=== PATIENT | male | born 1950 | race Caucasian/White ===

== ENCOUNTER → 2017-03-29 14:22 | Outpatient (CLI) | payer OTHER, SELFPAY | PROVIDERS: Family Provider Family Medicine; PCP Family Medicine; Visit Provider Internal Medicine Cardiovascular Disease | DX: Z53.9 Procedure and treatment not carried out, unspecified reason (principal) ==

== ENCOUNTER 2017-04-21 13:00 | Outpatient (RCR) | payer OTHER, SELFPAY ==
--- NOTE | 2017-03-29 12:52 | PCM.CR.ITP ---
Exercise - Initial Assessment - Visit Date of Eval: 03/29/17 - Stages of Change Stages of Change:: Contemplate - Exercise Prescription Mode:: Treadmill, Biodyne, Airdyne, NuStep, Arm Ergometer Angina with exercise?: No - Hypertension Do any of the following apply?: Yes Resting Blood Pressure:: 130/60 - Intervention Home Exercise/Activity Goal:: Sitting Time <3 hrs/day - Education Goals:: Warm-up, RPE VIPIN Scale, S/S, Safe Exercise, Self-Monitoring - Exercise Program Goals Exercise Program Goals: Aerobic Activity >30 min, B/P <140/90 Nutrition - Initial Assessment - Program Goals Nutrition Program Goals: LDL <70. Total Cholesterol <200. HDL >45. Triglycerides <150. HgbA1C <7%. BMI <25 - Visit Date of Assessment:: 03/29/17 - Stages of Change Stages of Change:: Contemplate - Diabetes Diabetes:: Yes - Weight Management Height: 1.85 m Weight:: 108.862 kg Total Score:: 3 - Intervention Referral to dietitian:: Yes Referral to Diabetic Clinic:: No Will attend diet classes:: Yes - Education Gave educational materials for:: Signs & symptoms of hypoglycemia, Signs & symptoms of hyperglycemia, Relate diabetes to coronary artery disease, Healthy eating Tobacco - Initial Assessment - Program Goals Tobacco Program Goals: Complete smoking cessation. Attend education classes. Improve Knowledge Test score - Stage of Change Stages of Change:: Contemplate - Learning Barriers Learning Barriers: Vision Total Score:: 9 - Family Support Do you have family support?: Yes - Tobacco Use Tobacco Use: Non-smoker How long ago did you quit using tobacco products?: Greater than or equal to 6 months ago Do you use smokeless tobacco?: No - Intervention Smoking Cessation Referral:: No Individual Education/Counseling:: No Education Schedule Given:: Yes - Education Gave educational material for:: Tobacco triggers, Coronary artery disease, Risk factors, Sexuality, Medical compliance, Cardiac A&P, Angina signs & symptoms Psychosocial - Initial Assess - Target Goals Target Goals: Assess presence or absence of depression. Using a valid screening tool, maximizes coping skills. Positive support system - Stages of Change Stages of Change:: Contemplate - Psychosocial Test Tool Used:: HANDS Depression Questionnaire Total Mood Screening Score:: 1 Self-Efficacy Score:: 7 - Intervention PS - Interventions: Yes Attend Stress Management Classes, Yes Uses Stress Management Skills, No Referral to Mental Health, No Referral to [facility] Case Management, No Referral to Physician - Education Gave educational materials for:: Coping techniques, Signs & symptoms of depression, Stress management, Relaxation techniques - Assistive Devices Assistive Devices:: None Fall Risk Assessed:: Yes Patient Health Questionnaire Initial Assessment 1. Little interest or pleasure in doing things: Not at all 2. Feeling down, depressed, or hopeless: Not at all 3. Trouble falling or staying asleep, or sleeping too much: Not at all 4. Feeling tired or having little energy: Several days 5. Poor appetite or overeating: Not at all 6. Feeling bad about yourself -- or that you are a failure or have let yourself or your family down: Not at all 7. Trouble concentrating on things, such as reading the newspaper or watching television: Not at all 8. Moving or speaking so slowly that other people could have noticed. Or the opposite - being so fidgety or restless that you have been moving around a lot more than usual: Not at all 9. Thoughts that you would be better off , or of hurting yourself in some way: Not at all How difficult have these problems made it for you to do your work, take care of things at home, or get along with other people?: Not difficult at all Total Score: 1 Knowledge Test - Check your knowledge Initial The #1 cause of in the [place] each year is:: Heart disease Which of the following is a common treatment for heart disease?: All of the above The arteries that feed the heart are called:: Coronary arteries HDL cholesterol is known as the good cholesterol.: True What disease increases your risk for heart disease?: Diabetes What food product raises blood cholesterol level the most?: Saturated fat The bad cholesterol in the blood is called:: LDL Hypertension is another word for:: High blood pressure A blood pressure reading of 148/88 is considered normal.: False Exercise will only benefit your health when your heart rate reaches a target level.: True Total Score:: 9 Self-Efficacy Initial Assessment We would like to know how confident you are in doing certain activities. Please select your confidence level for:: Select your confidence level for the following using the scale 1-10 where 1 is not at all confident and 10 is totally confident. Your score is the average of all 6 responses. Fatigue: How confident are you that you can keep the fatigue caused by your disease from interfering with the things you want to do? Select Number: 4 Physical Discomfort or Pain: How confident are you that you can keep the physical discomfort or pain of your disease from interfering with the things you want to do? Select Number: 7 Emotional Distress: How confident are you that you can keep the emotional distress caused by your disease from interfering with the things you want to do? Select Number: 10 Other Symptoms or Health Problems: How confident are you that you can keep other symptoms or health problems from interfering with the things you want to do? Select Number: 8 Different Tasks and Activities: How confident are you that you can do the different tasks and activities needed to manage your health condition so as to reduce your need to see a doctor? Select Number: 9 Medication: How confident are you that you can do things other than just taking medication to reduce how much your illness affects your everyday life? Select Number: 8 Total Score:: 7 Nutrition Survey - Nutrition Survey Instructions Scoring Instructions: Scoring is as follows: Yes = 1 points. No = 0 point. Patient score that is >/=12 is considered to be at potential nutritional risk and could benefit from a referral to a registered dietitian. - Nutrition Survey Initial Have you lost >10 lbs over the past 2 months without trying?: No Are you following a special diet at home for diabetes, low fat, or low salt?: Yes Are you interested in meeting with a dietitian for help understanding your diet?: Yes Do you eat less than 3 meals a day?: No Do you eat fatty meats (rojas, sausage, ribs, etc), fried foods, desserts, large amounts of salad dressings, margarine, butter, or cheese most days?: No Do you have food allergies? [Enter types in comment field]: No Do you eat in restaurants more than 3 times a week?: No Do you season food with salt, seasoning salt, or garlic salt?: No Do you used canned, boxed, frozen meals, or soups, seasoning packets?: Yes Total Score:: 3 Cardiac Rehabilitation Goals - Cardiac Rehab Goals Cardiac Rehabilitation Goals: 1. Maintain the individual as the primary focus of care. 2. To improve the patient's quality of life. 3. Identification of cardiac risk factors and provide cardiac risk factor management. 4. Enhance the psychosocial status of the patient. 5. Reconditioning enough to allow the patient to resume customary activities. 6. Control symptoms of cardiac disease - Scale Scale for measuring improvement of personal goals: Enter appropriate number in Comments. 2 = Unchanged. 3 = Slightly Better. 4 = Moderate Improvement. 5 = Met my Goal Initial Assessment Personal Goals: 30-day Re-assessment: Improve energy level, Get back to work, or to resume activities faster, Improve muscle strength and endurance, Control risk factors (learn risk factor modification)
--- NOTE | 2017-03-29 12:53 | PCM.CR.HP2 ---
CR - History & Physical - General Arrival date:: 03/29/17 Arrival time:: 12:53 Date of Admission: 01/21/17 Referring Physician: Dr. Wali Milton Primary Diagnosis: Z95.1 - History of Present Cardiac Event Onset Date: Enter Onset Date of cardiac illnesses in Comment field below [place]:: Yes CABG:: Yes - Medications Home Medications: Ambulatory Orders Medication Instructions Recorded Glucosamine/Chondroitin A/MSM 1 ea PO BID 01/19/17 [[id number]-TMD Tb] Levothyroxine [Synthroid] 125 mcg PO DAILY 01/19/17 Multivitamin with Iron 1 ea PO DAILY 01/19/17 [Multivitamins with Iron] Turmeric Root Extract [Turmeric] 500 mg PO BID 01/19/17 aspirin 81 mg tablet,delayed 81 mg PO QDAY 03/18/17 release insulin lispro protamine-lispro 20 unit SC BID ml 03/19/17 100 unit/mL (75-25) subcutaneous pen metformin 500 mg tablet 500 mg PO BID 03/19/17 metoprolol tartrate 25 mg tablet 12.5 mg PO BID tab 03/19/17 - Allergies Allergies/Adverse Reactions: Allergies lanolin Adverse Reaction (Unknown, Unverified 03/18/17 10:29) Unknown - Sleep Disorder Evaluation Hx of Sleep Apnea: No Do you snore loudly (louder than talking or can be heard through closed doors)?: No Do you often feel tired/ fatigued/ sleepy during daytime?: No Has anyone observed you stop breathing during sleep?: No History of Hypertension (for STOP score): Yes STOP Results: Negative Advanced Directives - Advanced Directives Power of Insurance Agents Supervisor: Yes Living Will: No Advance Directives Information Provided: Yes Advance Directives on File: Yes DNR Order?:: No Past Medical History - Problems and Co-Morbidities Problems & Co-Morbidities: Dyslipidemia, Diabetes, Obesity, Hypertension, Sedentary Lifestyle - Past Medical Illness Past Medical Illness: Diabetes, Stroke Other Medical Illnesses:: thyroid disorder - Other Other: Vision/Eye Problems - Cardiology Procedures/Interventions Cardiology Procedures/Interventions: Heart Catheterization, Echocardiogram - EF 50-55 per echo in Jan 2017, Other Procedures - CABG - Past Surgical History Surgical History: no surgical history - Family History Summary Family History: Heart Disease: Sibling Review of Systems - Review of Systems Hints: Right click = Denies (Slash). Left click = Reports ([place]) Review of Present Symptoms: Reports: Angina, Appetite - Normal, Sleep - Normal. Denies: Shortness of Breath at Rest, Shortness of Breath with Exertion, PVD, Operative Discomfort, Wound Healing, Dizziness/Lightheadedness, Fatigue, Heart Arrhythmia/Irregularities, Appetite - Special Diet, Sexual Changes Risk Factor Assessment - Chief Complaint Chief Complaint: CP, Non-ST [place] - Pulse Pulse Rate: 55 - 93% SPO2 Pulse Rhythm: Regular - Hypertension How long have you been treated?: 2 month Blood Pressure Sitting - Right Arm: 130/60 - Diabetes Diabetic History: Type II Nutrition Referral for Diabetes: Yes - Obesity Height: 1.85 m Weight:: 108.862 kg Weight in Pounds: 240.0 lbs Body Mass Index (BMI): 31.6 Nutritional Referral for Obesity: No - Physical Inactivity Physical Inactivity: None - Risk Stratification Risk Guidelines: Lowest Risk: Risk Factor for Depression, Moderate Risk: Risk Factor for Smoking, Risk Factor for Dyslipidemia, Risk Factor for Diabetes, Risk Factor for Hypertension, Risk Factor for Sedentary Lifestyle, Highest Risk: Risk Factor for Obesity - For Smoking Smoking Risk Guidelines: Smoking Low Risk: None or quit greater than 6 months ago. Smoking Moderate Risk: Smoker or quit 6 months or less ago. Smoking High Risk: Smoker - For Dyslipidemia Dyslipidemia Risk Guidelines: Low Risk: Moderate Risk: High Risk: 15-25% fat 25.1-29% fat >/= 30% fat. <7% sat fat 7-9% sat fat >9% sat fat. <150 mg chol 150-299 mg chol >/= 300 mg chol. LDL <100 LDL 100-129 LDL >/= 130. Chol/HDL ratio <5.0 Chol/HDL ratio 5.0-6.0 Chol/HDL ratio >6.0. Triglycerides <100 Triglycerides 100-149 Triglycerides >/= 150 - For Diabetes Mellitus Diabetes Risk Guidelines: Diabetes Low Risk: HgA1c <6.5% and/or FBG <120. Diabetes Moderate Risk: HgA1c 6.6-7.9% and/or FBG 120-180. Diabetes High Risk: HgA1c >/= 8% and/or FBG >180 - For Obesity/Overweight Obesity/Overweight Risk Guidelines: Obesity Low Risk: BMI <25.0. Obesity Moderate Risk: BMI 25-29.9. Obesity High Risk: BMI >/= 30.0 - For Hypertension Hypertension Risk Guidelines: Hypertension Low Risk: Systolic <120 and Diastolic <80. Hypertension Moderate Risk: Systolic 120-139 and Diastolic 80-89. Hypertension High Risk: Systolic >/= 140 and Diastolic >/= 90 - For Sedentary Lifestyle Sedentary Lifestyle Risk Guidelines: Sedentary Lifestyle Low Risk: >/= 1,500 kcal/week. Sedentary Lifestyle Moderate Risk: 700-1,499 kcal/week. Sedentary Lifestyle High Risk: < 700 kcal/week - For Depression Depression Risk Guidelines: Depression Low Risk: Not clinically depressed. Depression Moderate Risk: Mildly depressed. Depression High Risk: Clinically depressed - Family History Family History: Family History (Last Updated 03/18/17 @ 10:32 by TANNER LightC) Sister CAD (coronary artery disease) Diabetes Brother CAD (coronary artery disease) Social History - Smoking History Smoking Status: Former smoker Years Smokin Packs Smoked per Day: 1.5 Hx Tobacco Use: Yes Hx Smoking Exposure: Yes - Alcohol Use Alcohol Usage: No - Substance Abuse Hx Substance Use: No - Occupation Occupation (List type of work in comments):: Employed - Hobbies, Recreation, Social Activities Hobbies: Watch TV, Other - music and astronomy Recreational Activities: I am able to engage in most, but not all activities Marital Status - Status Marital Status: - Current Living Arrangements Living Environment:: Spouse - Children How many children do you have?: 1 Do any of your children live nearby?: No - Safety Do you feel safe in your surroundings?: Yes - Assistance Do you need any assistance at home?: no
--- NOTE | 2017-03-29 13:04 | CR.HP_ITS ---
CR - History & Physical - General Arrival date:: 03/29/17 Arrival time:: 12:53 Date of Admission: 01/21/17 Referring Physician: Dr. Wali Milton Primary Diagnosis: Z95.1 - History of Present Cardiac Event Onset Date: Enter Onset Date of cardiac illnesses in Comment field below [place]:: Yes CABG:: Yes - Medications Home Medications: Ambulatory Orders Medication Instructions Recorded Glucosamine/Chondroitin A/MSM 1 ea PO BID 01/19/17 [[id number]-[id number]-DHK Tb] Levothyroxine [Synthroid] 125 mcg PO DAILY 01/19/17 Multivitamin with Iron 1 ea PO DAILY 01/19/17 [Multivitamins with Iron] Turmeric Root Extract [Turmeric] 500 mg PO BID 01/19/17 aspirin 81 mg tablet,delayed 81 mg PO QDAY 03/18/17 release insulin lispro protamine-lispro 20 unit SC BID ml 03/19/17 100 unit/mL (75-25) subcutaneous pen metformin 500 mg tablet 500 mg PO BID 03/19/17 metoprolol tartrate 25 mg tablet 12.5 mg PO BID tab 03/19/17 - Allergies Allergies/Adverse Reactions: Allergies lanolin Adverse Reaction (Unknown, Unverified 03/18/17 10:29) Unknown - Sleep Disorder Evaluation Hx of Sleep Apnea: No Do you snore loudly (louder than talking or can be heard through closed doors)? : No Do you often feel tired/ fatigued/ sleepy during daytime?: No Has anyone observed you stop breathing during sleep?: No History of Hypertension (for STOP score): Yes STOP Results: Negative Advanced Directives - Advanced Directives Power of Manager Security: Yes Living Will: No Advance Directives Information Provided: Yes Advance Directives on File: Yes DNR Order?:: No Past Medical History - Problems and Co-Morbidities Problems & Co-Morbidities: Dyslipidemia, Diabetes, Obesity, Hypertension, Sedentary Lifestyle - Past Medical Illness Past Medical Illness: Diabetes, Stroke Other Medical Illnesses:: thyroid disorder - Other Other: Vision/Eye Problems - Cardiology Procedures/Interventions Cardiology Procedures/Interventions: Heart Catheterization, Echocardiogram - EF 50-55 per echo in Jan 2017, Other Procedures - CABG - Past Surgical History Surgical History: no surgical history - Family History Summary Family History: Heart Disease: Sibling Review of Systems - Review of Systems Hints: Right click = Denies ([place]). Left click = Reports ([place]) Review of Present Symptoms: Reports: Angina, Appetite - Normal, Sleep - Normal. Denies: Shortness of Breath at Rest, Shortness of Breath with Exertion, PVD, Operative Discomfort, Wound Healing, Dizziness/Lightheadedness, Fatigue, Heart Arrhythmia/Irregularities, Appetite - Special Diet, Sexual Changes Risk Factor Assessment - Chief Complaint Chief Complaint: CP, Non-ST [place] - Pulse Pulse Rate: 55 - 93% SPO2 Pulse Rhythm: Regular - Hypertension How long have you been treated?: 2 month Blood Pressure Sitting - Right Arm: 130/60 - Diabetes Diabetic History: Type II Nutrition Referral for Diabetes: Yes - Obesity Height: 1.85 m Weight:: 108.862 kg Weight in Pounds: 240.0 lbs Body Mass Index (BMI): 31.6 Nutritional Referral for Obesity: No - Physical Inactivity Physical Inactivity: None - Risk Stratification Risk Guidelines: Lowest Risk: Risk Factor for Depression, Moderate Risk: Risk Factor for Smoking, Risk Factor for Dyslipidemia, Risk Factor for Diabetes, Risk Factor for Hypertension, Risk Factor for Sedentary Lifestyle, Highest Risk : Risk Factor for Obesity - For Smoking Smoking Risk Guidelines: Smoking Low Risk: None or quit greater than 6 months ago. Smoking Moderate Risk: Smoker or quit 6 months or less ago. Smoking High Risk: Smoker - For Dyslipidemia Dyslipidemia Risk Guidelines: Low Risk: Moderate Risk: High Risk: 15-25% fat 25.1-29% fat >/= 30% fat. <7% sat fat 7-9% sat fat >9% sat fat. <150 mg chol 150-299 mg chol >/= 300 mg chol. LDL <100 LDL 100-129 LDL >/= 130. Chol/HDL ratio <5.0 Chol/HDL ratio 5.0-6.0 Chol/HDL ratio >6.0. Triglycerides <100 Triglycerides 100-149 Triglycerides >/= 150 - For Diabetes Mellitus Diabetes Risk Guidelines: Diabetes Low Risk: HgA1c <6.5% and/or FBG <120. Diabetes Moderate Risk: HgA1c 6.6-7.9% and/or FBG 120-180. Diabetes High Risk: HgA1c >/= 8% and/or FBG >180 - For Obesity/Overweight Obesity/Overweight Risk Guidelines: Obesity Low Risk: BMI <25.0. Obesity Moderate Risk: BMI 25-29.9. Obesity High Risk: BMI >/= 30.0 - For Hypertension Hypertension Risk Guidelines: Hypertension Low Risk: Systolic <120 and Diastolic <80. Hypertension Moderate Risk: Systolic 120-139 and Diastolic 80-89. Hypertension High Risk: Systolic >/= 140 and Diastolic >/= 90 - For Sedentary Lifestyle Sedentary Lifestyle Risk Guidelines: Sedentary Lifestyle Low Risk: >/= 1 ,500 kcal/week. Sedentary Lifestyle Moderate Risk: 700-1,499 kcal/week. Sedentary Lifestyle High Risk: < 700 kcal/week - For Depression Depression Risk Guidelines: Depression Low Risk: Not clinically depressed. Depression Moderate Risk: Mildly depressed. Depression High Risk: Clinically depressed - Family History Family History: Family History (Last Updated 03/18/17 @ 10:32 by TANNER LightC) Sister CAD (coronary artery disease) Diabetes Brother CAD (coronary artery disease) Social History - Smoking History Smoking Status: Former smoker Years Smokin Packs Smoked per Day: 1.5 Hx Tobacco Use: Yes Hx Smoking Exposure: Yes - Alcohol Use Alcohol Usage: No - Substance Abuse Hx Substance Use: No - Occupation Occupation (List type of work in comments):: Employed - Hobbies, Recreation, Social Activities Hobbies: Watch TV, Other - music and astronomy Recreational Activities: I am able to engage in most, but not all activities Marital Status - Status Marital Status: - Current Living Arrangements Living Environment:: Spouse - Children How many children do you have?: 1 Do any of your children live nearby?: No - Safety Do you feel safe in your surroundings?: Yes - Assistance Do you need any assistance at home?: no
[2017-03-29 13:55] VITALS: BP 130/60
[2017-03-29 13:56] VITALS: BP 130/60; PULSE 55; BMI 31.6
[2017-04-21 09:53] VITALS: BP 120/50; BP 134/60
--- NOTE | 2017-04-21 09:54 | CR.ITP_ITS ---
Exercise - Initial Assessment - Visit Date of Eval: 03/29/17 - Stages of Change Stages of Change:: Contemplate - Exercise Prescription Mode:: Treadmill, Biodyne, Airdyne, NuStep, Arm Ergometer Angina with exercise?: No - Hypertension Do any of the following apply?: Yes - Intervention Home Exercise/Activity Goal:: Sitting Time <3 hrs/day - Education Goals:: Warm-up, RPE VIPIN Scale, S/S, Safe Exercise, Self-Monitoring - Exercise Program Goals Exercise Program Goals: Aerobic Activity >30 min, B/P <140/90 Exercise - 30-day Assessment - Visit Date of Eval: 04/21/17 Session #:: 7 - Stages of Change Stages of Change:: Action - Exercise Prescription Mode:: Treadmill, Airdyne, NuStep Frequency (x/week): 3 Duration:: 35 METs - Progression: 0.5-1 MET as tolerated: 3.7 Target Heart Rate:: 107-115 - Hypertension Resting Blood Pressure:: 120/50 Peak Exercise Blood Pressure:: 134/60 Medication Changes:: No - Intervention Home Exercise/Activity Goal:: Sitting Time <3 hrs/day - Education Goals:: Warm-up, RPE VIPIN Scale, S/S, Safe Exercise, Self-Monitoring - Exercise Program Goals Exercise Program Goals: Aerobic Activity >30 min Exercise - Final/Discharge - Hypertension Do any of the following apply?: Yes Nutrition - Initial Assessment - Program Goals Nutrition Program Goals: LDL <70. Total Cholesterol <200. HDL >45. Triglycerides <150. HgbA1C <7%. BMI <25 - Visit Date of Assessment:: 03/29/17 - Stages of Change Stages of Change:: Contemplate - Diabetes Diabetes:: Yes - Weight Management Total Score:: 3 - Intervention Referral to dietitian:: Yes Referral to Diabetic Clinic:: No Will attend diet classes:: Yes - Education Gave educational materials for:: Signs & symptoms of hypoglycemia, Signs & symptoms of hyperglycemia, Relate diabetes to coronary artery disease, Healthy eating Nutrition - 30-Day Assessment - Program Goals Nutrition Program Goals: LDL <70. Total Cholesterol <200. HDL >45. Triglycerides <150. HgbA1C <7%. BMI <25 - Visit Date of Eval: 04/21/17 - session # 7 - Stages of Change Stages of Change:: Action - Diabetes Diabetes:: Yes Insulin: Yes - Going to see LYUDMILA Stephens [employer] Random Blood Glucose:: 287 - 142-332 - Weight Management Weight:: 108.862 kg - no change - Intervention Referral to dietitian:: Yes Referral to Diabetic Clinic:: No Will attend diet classes:: Yes - Education Attended class for:: Signs & symptoms of hypoglycemia, Signs & symptoms of hyperglycemia, Relate diabetes to coronary artery disease, Healthy eating Nutrition - 60-Day Assessment - Program Goals Nutrition Program Goals: LDL <70. Total Cholesterol <200. HDL >45. Triglycerides <150. HgbA1C <7%. BMI <25 - Diabetes Diabetes:: Yes - Intervention Referral to dietitian:: Yes Referral to Diabetic Clinic:: No Will attend diet classes:: Yes - Education Attended class for:: Signs & symptoms of hypoglycemia, Signs & symptoms of hyperglycemia, Relate diabetes to coronary artery disease, Healthy eating Nutrition - 90-Day Assessment - Program Goals Nutrition Program Goals: LDL <70. Total Cholesterol <200. HDL >45. Triglycerides <150. HgbA1C <7%. BMI <25 - Diabetes Diabetes:: Yes - Intervention Referral to dietitian:: Yes Referral to Diabetic Clinic:: No Will attend diet classes:: Yes - Education Attended class for:: Signs & symptoms of hypoglycemia, Signs & symptoms of hyperglycemia, Relate diabetes to coronary artery disease, Healthy eating Nutrition - Final Assessment - Program Goals Nutrition Program Goals: LDL <70. Total Cholesterol <200. HDL >45. Triglycerides <150. HgbA1C <7%. BMI <25 - Diabetes Diabetes:: Yes - Weight Management Total Score:: 3 - Intervention Referral to dietitian:: Yes Referral to Diabetic Clinic:: No Will attend diet classes:: Yes Tobacco - Initial Assessment - Program Goals Tobacco Program Goals: Complete smoking cessation. Attend education classes. Improve Knowledge Test score - Stage of Change Stages of Change:: Contemplate - Learning Barriers Learning Barriers: Vision Total Score:: 9 - Family Support Do you have family support?: Yes - Tobacco Use Tobacco Use: Non-smoker How long ago did you quit using tobacco products?: Greater than or equal to 6 months ago Do you use smokeless tobacco?: No - Intervention Smoking Cessation Referral:: No Individual Education/Counseling:: No Education Schedule Given:: Yes - Education Gave educational material for:: Tobacco triggers, Coronary artery disease, Risk factors, Sexuality, Medical compliance, Cardiac A&P, Angina signs & symptoms Tobacco - 30-Day Assessment - Program Goals Tobacco Program Goals: Complete smoking cessation. Attend education classes. Improve Knowledge Test score - Stage of Change Stages of Change:: Action - Learning Barriers Learning Barriers: Participates in education - Family Support Do you have family support?: Yes - Tobacco Use Tobacco Use: Non-smoker Do you use smokeless tobacco?: No - Intervention Smoking Cessation Referral:: No Individual Education/Counseling:: No Education Schedule Given:: Yes - Education Attended class for:: Tobacco triggers, Coronary artery disease, Risk factors, Sexuality, Medical compliance, Cardiac A&P, Angina signs & symptoms Tobacco - 60-Day Assessment - Program Goals Tobacco Program Goals: Complete smoking cessation. Attend education classes. Improve Knowledge Test score - Family Support Do you have family support?: Yes - Tobacco Use Do you use smokeless tobacco?: No - Intervention Smoking Cessation Referral:: No Individual Education/Counseling:: No Education Schedule Given:: Yes - Education Attended class for:: Tobacco triggers, Coronary artery disease, Risk factors, Sexuality, Medical compliance, Cardiac A&P, Angina signs & symptoms Tobacco - 90-Day Assessment - Program Goals Tobacco Program Goals: Complete smoking cessation. Attend education classes. Improve Knowledge Test score - Family Support Do you have family support?: Yes - Tobacco Use Do you use smokeless tobacco?: No - Intervention Smoking Cessation Referral:: No Individual Education/Counseling:: No Education Schedule Given:: Yes - Education Attended class for:: Tobacco triggers, Coronary artery disease, Risk factors, Sexuality, Medical compliance, Cardiac A&P, Angina signs & symptoms Tobacco - Final Assessment - Program Goals Tobacco Program Goals: Complete smoking cessation. Attend education classes. Improve Knowledge Test score - Learning Barriers Cardiac Knowledge Test Score:: 9 - Family Support Do you have family support?: Yes - Tobacco Use Do you use smokeless tobacco?: No - Intervention Smoking Cessation Referral:: No Individual Education/Counseling:: No Education Schedule Given:: Yes Psychosocial - Initial Assess - Target Goals Target Goals: Assess presence or absence of depression. Using a valid screening tool, maximizes coping skills. Positive support system - Stages of Change Stages of Change:: Contemplate - Psychosocial Test Tool Used:: HANDS Depression Questionnaire Total Mood Screening Score:: 1 Self-Efficacy Score:: 7 - Intervention PS - Interventions: Yes Attend Stress Management Classes, Yes Uses Stress Management Skills, No Referral to Mental Health, No Referral to [facility] Case Management, No Referral to Physician - Education Gave educational materials for:: Coping techniques, Signs & symptoms of depression, Stress management, Relaxation techniques - Assistive Devices Assistive Devices:: None Fall Risk Assessed:: Yes Psychosocial - 30-Day Assess - Target Goals Target Goals: Assess presence or absence of depression. Using a valid screening tool, maximizes coping skills. Positive support system - Stages of Change Stages of Change:: Action - Psychosocial Test Tool Used:: HANDS Depression Questionnaire Total Mood Screening Score:: 1 Self-Efficacy Score:: 7 - Intervention PS - Interventions: Yes Attend Stress Management Classes, No Referral to Mental Health, No Referral to [facility] Case Management, No Referral to Physician, No Uses Stress Management Skills - Education Attended classes for:: Coping techniques, Signs & symptoms of depression, Stress management, Relaxation techniques - Patient/Program Goal Preventative Medication(s):: Aspirin, CORNELL inhibitor, Clopidogrel, Beta kiah, Statin/lipid - Assistive Devices Assistive Devices:: None Fall Risk Assessed:: Yes Psychosocial - 60-Day Assess - Target Goals Target Goals: Assess presence or absence of depression. Using a valid screening tool, maximizes coping skills. Positive support system - Psychosocial Test Tool Used:: HANDS Depression Questionnaire Total Mood Screening Score:: 1 Self-Efficacy Score:: 7 - Education Attended classes for:: Coping techniques, Signs & symptoms of depression, Stress management, Relaxation techniques - Assistive Devices Assistive Devices:: None Fall Risk Assessed:: Yes Psychosocial - 90-Day Assess - Target Goals Target Goals: Assess presence or absence of depression. Using a valid screening tool, maximizes coping skills. Positive support system - Psychosocial Test Tool Used:: HANDS Depression Questionnaire Total Mood Screening Score:: 1 Self-Efficacy Score:: 7 - Education Attended classes for:: Coping techniques, Signs & symptoms of depression, Stress management, Relaxation techniques - Assistive Devices Assistive Devices:: None Fall Risk Assessed:: Yes Psychosocial - Final Assessmen - Target Goals Target Goals: Assess presence or absence of depression. Using a valid screening tool, maximizes coping skills. Positive support system - Psychosocial Test Tool Used:: HANDS Depression Questionnaire Total Mood Screening Score:: 1 Self-Efficacy Score:: 7 - Assistive Devices Assistive Devices:: None Fall Risk Assessed:: Yes Patient Health Questionnaire 30-Day Re-eval Assessment 1. Little interest or pleasure in doing things: Not at all 2. Feeling down, depressed, or hopeless: Not at all 3. Trouble falling or staying asleep, or sleeping too much: Not at all 4. Feeling tired or having little energy: Not at all 5. Poor appetite or overeating: Not at all 6. Feeling bad about yourself -- or that you are a failure or have let yourself or your family down: Not at all 7. Trouble concentrating on things, such as reading the newspaper or watching television: Not at all 8. Moving or speaking so slowly that other people could have noticed. Or the opposite - being so fidgety or restless that you have been moving around a lot more than usual: Not at all 9. Thoughts that you would be better off , or of hurting yourself in some way: Not at all Total Score: 0 Self-Efficacy 30-Day Re-eval Assessment We would like to know how confident you are in doing certain activities. Please select your confidence level for:: Select your confidence level for the following using the scale 1-10 where 1 is not at all confident and 10 is totally confident. Your score is the average of all 6 responses. Fatigue: How confident are you that you can keep the fatigue caused by your disease from interfering with the things you want to do? Select Number: 6 Physical Discomfort or Pain: How confident are you that you can keep the physical discomfort or pain of your disease from interfering with the things you want to do? Select Number: 8 Emotional Distress: How confident are you that you can keep the emotional distress caused by your disease from interfering with the things you want to do? Select Number: 10 Other Symptoms or Health Problems: How confident are you that you can keep other symptoms or health problems from interfering with the things you want to do? Select Number: 9 Different Tasks and Activities: How confident are you that you can do the different tasks and activities needed to manage your health condition so as to reduce your need to see a doctor? Select Number: 10 Medication: How confident are you that you can do things other than just taking medication to reduce how much your illness affects your everyday life? Select Number: 9 Total Score:: 8 Cardiac Rehabilitation Goals - Cardiac Rehab Goals Cardiac Rehabilitation Goals: 1. Maintain the individual as the primary focus of care. 2. To improve the patient's quality of life. 3. Identification of cardiac risk factors and provide cardiac risk factor management. 4. Enhance the psychosocial status of the patient. 5. Reconditioning enough to allow the patient to resume customary activities. 6. Control symptoms of cardiac disease - Scale Scale for measuring improvement of personal goals: Enter appropriate number in Comments. 2 = Unchanged. 3 = Slightly Better. 4 = Moderate Improvement. 5 = Met my Goal 30-Day Re-eval Assessment Personal Goals: 30-day Re-assessment: Improve energy level - improved, Get back to work, or to resume activities faster - improved, Improve muscle strength and endurance - slight improvement, Control risk factors (learn risk factor modification) - ongoing
== END 2017-04-21 23:59 ==
LOC: CR 13:00
PROVIDERS: Family Provider Family Medicine; PCP Family Medicine; Visit Provider Internal Medicine Cardiovascular Disease
DX: Z00.00 Encounter for general adult medical examination without abnormal findings (principal)
CPT/HCPCS: 93798

== ENCOUNTER 2017-05-19 13:00 | Outpatient (RCR) | payer OTHER, SELFPAY ==
[2017-03-19 10:42] VITALS: BP 128/70
[2017-03-29 13:56] VITALS: BMI 31.6
[2017-04-22 01:04] VITALS: BP 120/50; BP 130/60; BP 134/60; PULSE 55
[2017-05-18 12:41] VITALS: BP 110/52; BP 132/60
--- NOTE | 2017-05-18 12:41 | CR.ITP_ITS ---
Exercise - Initial Assessment - Stages of Change Stages of Change:: Contemplate - Exercise Prescription Mode:: Treadmill, Biodyne, Airdyne, NuStep, Arm Ergometer Angina with exercise?: No - Hypertension Do any of the following apply?: Yes - Intervention Home Exercise/Activity Goal:: Sitting Time <3 hrs/day - Education Goals:: Warm-up, RPE VIPIN Scale, S/S, Safe Exercise, Self-Monitoring - Exercise Program Goals Exercise Program Goals: Aerobic Activity >30 min, B/P <140/90 Exercise - 30-day Assessment - Visit Date of Eval: 04/21/17 - session # 7 - Stages of Change Stages of Change:: Action - Exercise Prescription Mode:: Treadmill, Airdyne, NuStep Frequency (x/week): 3 Duration:: 35 METs - Progression: 0.5-1 MET as tolerated: 3.7 Target Heart Rate:: 107-115 - Intervention Home Exercise/Activity Goal:: Sitting Time <3 hrs/day - Education Goals:: Warm-up, RPE VIPIN Scale, S/S, Safe Exercise, Self-Monitoring - Exercise Program Goals Exercise Program Goals: Aerobic Activity >30 min Exercise - 60-Day Assessment - Visit Date of Eval: 05/18/17 Session #:: 17 - Stages of Change Stages of Change:: Action - Exercise Prescription Mode:: Treadmill, Rower, Airdyne, NuStep Frequency (x/week): 3 Duration:: 30 METs: 5.5 Target Heart Rate:: 107-115 w/ max HR 92 - Hypertension Resting Blood Pressure:: 110/52 Peak Exercise Blood Pressure:: 132/60 Medication Changes:: No - Intervention Home Exercise/Activity Goal:: Moderate Exercise 30 min/day x 5 days/wk - Education Goals:: Warm-up, RPE VIPIN Scale, S/S, Safe Exercise, Self-Monitoring - Exercise Program Goals Exercise Program Goals: Aerobic Activity >30 min Exercise - Final/Discharge - Hypertension Do any of the following apply?: Yes Nutrition - Initial Assessment - Program Goals Nutrition Program Goals: LDL <70. Total Cholesterol <200. HDL >45. Triglycerides <150. HgbA1C <7%. BMI <25 - Stages of Change Stages of Change:: Contemplate - Diabetes Diabetes:: Yes - Weight Management Total Score:: 3 - Intervention Referral to dietitian:: Yes Referral to Diabetic Clinic:: No Will attend diet classes:: Yes - Education Gave educational materials for:: Signs & symptoms of hypoglycemia, Signs & symptoms of hyperglycemia, Relate diabetes to coronary artery disease, Healthy eating Nutrition - 30-Day Assessment - Program Goals Nutrition Program Goals: LDL <70. Total Cholesterol <200. HDL >45. Triglycerides <150. HgbA1C <7%. BMI <25 - Stages of Change Stages of Change:: Action - Diabetes Diabetes:: Yes Insulin: Yes - Going to see Alfredito Pedersen Random Blood Glucose:: 287 - 142-332 - Intervention Referral to dietitian:: Yes Referral to Diabetic Clinic:: No Will attend diet classes:: Yes - Education Attended class for:: Signs & symptoms of hypoglycemia, Signs & symptoms of hyperglycemia, Relate diabetes to coronary artery disease, Healthy eating Nutrition - 60-Day Assessment - Program Goals Nutrition Program Goals: LDL <70. Total Cholesterol <200. HDL >45. Triglycerides <150. HgbA1C <7%. BMI <25 - Visit Date of Eval: 05/18/17 - Stages of Change Stages of Change:: Action - Lipids Has the patient seen the dietitian?: No - Diabetes Diabetes:: Yes Insulin: Yes - Going to see Alfredito Pedersen - Weight Management Weight:: 242 lb - stable, no weight loss - Intervention Referral to dietitian:: Yes Referral to Diabetic Clinic:: No Will attend diet classes:: Yes - Education Attended class for:: Signs & symptoms of hypoglycemia, Signs & symptoms of hyperglycemia, Relate diabetes to coronary artery disease, Healthy eating Nutrition - 90-Day Assessment - Program Goals Nutrition Program Goals: LDL <70. Total Cholesterol <200. HDL >45. Triglycerides <150. HgbA1C <7%. BMI <25 - Diabetes Diabetes:: Yes Insulin: Yes - Going to see Alfredito Pedersen - Intervention Referral to dietitian:: Yes Referral to Diabetic Clinic:: No Will attend diet classes:: Yes - Education Attended class for:: Signs & symptoms of hypoglycemia, Signs & symptoms of hyperglycemia, Relate diabetes to coronary artery disease, Healthy eating Nutrition - Final Assessment - Program Goals Nutrition Program Goals: LDL <70. Total Cholesterol <200. HDL >45. Triglycerides <150. HgbA1C <7%. BMI <25 - Diabetes Diabetes:: Yes Insulin: Yes - Going to see BJ Shook, [employer] - Weight Management Total Score:: 3 - Intervention Referral to dietitian:: Yes Referral to Diabetic Clinic:: No Will attend diet classes:: Yes Tobacco - Initial Assessment - Program Goals Tobacco Program Goals: Complete smoking cessation. Attend education classes. Improve Knowledge Test score - Stage of Change Stages of Change:: Contemplate - Learning Barriers Learning Barriers: Vision Total Score:: 9 - Family Support Do you have family support?: Yes - Tobacco Use Tobacco Use: Non-smoker How long ago did you quit using tobacco products?: Greater than or equal to 6 months ago Do you use smokeless tobacco?: No - Intervention Smoking Cessation Referral:: No Individual Education/Counseling:: No Education Schedule Given:: Yes - Education Gave educational material for:: Tobacco triggers, Coronary artery disease, Risk factors, Sexuality, Medical compliance, Cardiac A&P, Angina signs & symptoms Tobacco - 30-Day Assessment - Program Goals Tobacco Program Goals: Complete smoking cessation. Attend education classes. Improve Knowledge Test score - Stage of Change Stages of Change:: Action - Learning Barriers Learning Barriers: Participates in education - Family Support Do you have family support?: Yes - Tobacco Use Tobacco Use: Non-smoker Do you use smokeless tobacco?: No - Intervention Smoking Cessation Referral:: No Individual Education/Counseling:: No Education Schedule Given:: Yes - Education Attended class for:: Tobacco triggers, Coronary artery disease, Risk factors, Sexuality, Medical compliance, Cardiac A&P, Angina signs & symptoms Tobacco - 60-Day Assessment - Program Goals Tobacco Program Goals: Complete smoking cessation. Attend education classes. Improve Knowledge Test score - Stage of Change Stages of Change:: Action - Learning Barriers Learning Barriers: Participates in education, Change in behavior - Family Support Do you have family support?: Yes - Tobacco Use Tobacco Use: Non-smoker Do you use smokeless tobacco?: No - Intervention Smoking Cessation Referral:: No Individual Education/Counseling:: No Education Schedule Given:: Yes - Education Attended class for:: Tobacco triggers, Coronary artery disease, Risk factors, Sexuality, Medical compliance, Cardiac A&P, Angina signs & symptoms Tobacco - 90-Day Assessment - Program Goals Tobacco Program Goals: Complete smoking cessation. Attend education classes. Improve Knowledge Test score - Family Support Do you have family support?: Yes - Tobacco Use Tobacco Use: Non-smoker Do you use smokeless tobacco?: No - Intervention Smoking Cessation Referral:: No Individual Education/Counseling:: No Education Schedule Given:: Yes - Education Attended class for:: Tobacco triggers, Coronary artery disease, Risk factors, Sexuality, Medical compliance, Cardiac A&P, Angina signs & symptoms Tobacco - Final Assessment - Program Goals Tobacco Program Goals: Complete smoking cessation. Attend education classes. Improve Knowledge Test score - Learning Barriers Cardiac Knowledge Test Score:: 9 - Family Support Do you have family support?: Yes - Tobacco Use Tobacco Use: Non-smoker Do you use smokeless tobacco?: No - Intervention Smoking Cessation Referral:: No Individual Education/Counseling:: No Education Schedule Given:: Yes Psychosocial - Initial Assess - Target Goals Target Goals: Assess presence or absence of depression. Using a valid screening tool, maximizes coping skills. Positive support system - Stages of Change Stages of Change:: Contemplate - Psychosocial Test Tool Used:: HANDS Depression Questionnaire Total Mood Screening Score:: 1 Self-Efficacy Score:: 7 - Education Gave educational materials for:: Coping techniques, Signs & symptoms of depression, Stress management, Relaxation techniques - Patient/Program Goal Preventative Medication(s):: Aspirin, CORNELL inhibitor, Clopidogrel, Beta kiah, Statin/lipid - Assistive Devices Assistive Devices:: None Fall Risk Assessed:: Yes Psychosocial - 30-Day Assess - Target Goals Target Goals: Assess presence or absence of depression. Using a valid screening tool, maximizes coping skills. Positive support system - Stages of Change Stages of Change:: Action - Psychosocial Test Tool Used:: HANDS Depression Questionnaire Total Mood Screening Score:: 1 Self-Efficacy Score:: 7 - Patient/Program Goal Preventative Medication(s):: Aspirin, CORNELL inhibitor, Clopidogrel, Beta kiah, Statin/lipid - Assistive Devices Assistive Devices:: None Fall Risk Assessed:: Yes Psychosocial - 60-Day Assess - Target Goals Target Goals: Assess presence or absence of depression. Using a valid screening tool, maximizes coping skills. Positive support system - Stages of Change Stages of Change:: Action - Psychosocial Test Tool Used:: HANDS Depression Questionnaire Total Mood Screening Score:: 1 Self-Efficacy Score:: 7 - Intervention PS - Interventions: Yes Attend Stress Management Classes, Yes Uses Stress Management Skills, No Referral to Mental Health, No Referral to [facility] Case Management, No Referral to Physician - Education Attended classes for:: Coping techniques, Signs & symptoms of depression, Stress management, Relaxation techniques - Patient/Program Goal Preventative Medication(s):: Aspirin, CORNELL inhibitor, Clopidogrel, Beta kiah, Statin/lipid - Assistive Devices Assistive Devices:: None Fall Risk Assessed:: Yes Psychosocial - 90-Day Assess - Target Goals Target Goals: Assess presence or absence of depression. Using a valid screening tool, maximizes coping skills. Positive support system - Psychosocial Test Tool Used:: HANDS Depression Questionnaire Total Mood Screening Score:: 1 Self-Efficacy Score:: 7 - Education Attended classes for:: Coping techniques, Signs & symptoms of depression, Stress management, Relaxation techniques - Patient/Program Goal Preventative Medication(s):: Aspirin, CORNELL inhibitor, Clopidogrel, Beta kiah, Statin/lipid - Assistive Devices Assistive Devices:: None Fall Risk Assessed:: Yes Psychosocial - Final Assessmen - Target Goals Target Goals: Assess presence or absence of depression. Using a valid screening tool, maximizes coping skills. Positive support system - Psychosocial Test Tool Used:: HANDS Depression Questionnaire Total Mood Screening Score:: 1 Self-Efficacy Score:: 7 - Patient/Program Goal Preventative Medication(s):: Aspirin, CORNELL inhibitor, Clopidogrel, Beta kiah, Statin/lipid - Assistive Devices Assistive Devices:: None Fall Risk Assessed:: Yes Patient Health Questionnaire 60-Day Re-eval Assessment 1. Little interest or pleasure in doing things: Not at all 2. Feeling down, depressed, or hopeless: Not at all 3. Trouble falling or staying asleep, or sleeping too much: Not at all 4. Feeling tired or having little energy: Not at all 5. Poor appetite or overeating: Not at all 6. Feeling bad about yourself -- or that you are a failure or have let yourself or your family down: Not at all 7. Trouble concentrating on things, such as reading the newspaper or watching television: Not at all 8. Moving or speaking so slowly that other people could have noticed. Or the opposite - being so fidgety or restless that you have been moving around a lot more than usual: Not at all 9. Thoughts that you would be better off , or of hurting yourself in some way: Not at all Total Score: 0 Self-Efficacy 60-Day Re-eval Assessment We would like to know how confident you are in doing certain activities. Please select your confidence level for:: Select your confidence level for the following using the scale 1-10 where 1 is not at all confident and 10 is totally confident. Your score is the average of all 6 responses. Fatigue: How confident are you that you can keep the fatigue caused by your disease from interfering with the things you want to do? Select Number: 7 Physical Discomfort or Pain: How confident are you that you can keep the physical discomfort or pain of your disease from interfering with the things you want to do? Select Number: 9 Emotional Distress: How confident are you that you can keep the emotional distress caused by your disease from interfering with the things you want to do? Select Number: 10 Other Symptoms or Health Problems: How confident are you that you can keep other symptoms or health problems from interfering with the things you want to do? Select Number: 10 Different Tasks and Activities: How confident are you that you can do the different tasks and activities needed to manage your health condition so as to reduce your need to see a doctor? Select Number: 10 Medication: How confident are you that you can do things other than just taking medication to reduce how much your illness affects your everyday life? Select Number: 10 Total Score:: 9
== END 2017-05-19 23:59 ==
LOC: CR 13:00
PROVIDERS: Family Provider Family Medicine; PCP Family Medicine; Visit Provider Internal Medicine Cardiovascular Disease
DX: Z95.1 Presence of aortocoronary bypass graft (principal)
CPT/HCPCS: 93798

== ENCOUNTER 2017-06-09 13:00 | Outpatient (RCR) | payer OTHER, SELFPAY ==
[2017-05-20 00:49] VITALS: BP 110/52; BP 130/60; BP 132/60; PULSE 55; BMI 31.6
[2017-06-14 10:33] VITALS: BP 114/68; BP 146/60
--- NOTE | 2017-06-14 10:33 | CR.ITP_ITS ---
Exercise - Initial Assessment - Stages of Change Stages of Change:: Contemplate - Exercise Prescription Mode:: Treadmill, Biodyne, Airdyne, NuStep, Arm Ergometer Angina with exercise?: No - Hypertension Do any of the following apply?: Yes - Intervention Home Exercise/Activity Goal:: Sitting Time <3 hrs/day - Education Goals:: Warm-up, RPE VIPIN Scale, S/S, Safe Exercise, Self-Monitoring - Exercise Program Goals Exercise Program Goals: Aerobic Activity >30 min, B/P <140/90 Exercise - 30-day Assessment - Stages of Change Stages of Change:: Action - Exercise Prescription Mode:: Treadmill, Airdyne, NuStep Frequency (x/week): 3 Duration:: 35 METs - Progression: 0.5-1 MET as tolerated: 3.7 Target Heart Rate:: 107-115 - Intervention Home Exercise/Activity Goal:: Sitting Time <3 hrs/day - Education Goals:: Warm-up, RPE VIPIN Scale, S/S, Safe Exercise, Self-Monitoring - Exercise Program Goals Exercise Program Goals: Aerobic Activity >30 min Exercise - 60-Day Assessment - Visit Date of Eval: 05/18/17 - Stages of Change Stages of Change:: Action - Exercise Prescription Mode:: Treadmill, Rower, Airdyne, NuStep Frequency (x/week): 3 Duration:: 30 METs: 5.5 Target Heart Rate:: 107-115 w/ max HR 92 - Hypertension Medication Changes:: No - Intervention Home Exercise/Activity Goal:: Moderate Exercise 30 min/day x 5 days/wk - Education Goals:: Warm-up, RPE VIPIN Scale, S/S, Safe Exercise, Self-Monitoring - Exercise Program Goals Exercise Program Goals: Aerobic Activity >30 min Exercise - 90-Day Assessment - Visit Date of Eval: 06/14/17 - 05/12/2017-06/09/2017 Session #:: 27 - Stages of Change Stages of Change:: Action - Exercise Prescription Mode:: Treadmill, Rower, Airdyne, NuStep Frequency (x/week): 3 Duration:: 30 METs: 7 Target Heart Rate:: 107-115 w/ max HR 99 - Hypertension Resting Blood Pressure:: 114/68 Peak Exercise Blood Pressure:: 146/60 Medication Changes:: No - Intervention Home Exercise/Activity Goal:: Sitting Time <3 hrs/day - Education Goals:: Warm-up, RPE VIPIN Scale, S/S, Safe Exercise, Self-Monitoring - Exercise Program Goals Exercise Program Goals: Aerobic Activity >30 min, B/P <140/90 Exercise - Final/Discharge - Hypertension Do any of the following apply?: Yes Nutrition - Initial Assessment - Program Goals Nutrition Program Goals: LDL <70. Total Cholesterol <200. HDL >45. Triglycerides <150. HgbA1C <7%. BMI <25 - Stages of Change Stages of Change:: Contemplate - Diabetes Diabetes:: Yes - Weight Management Total Score:: 3 - Intervention Referral to dietitian:: Yes Referral to Diabetic Clinic:: No Will attend diet classes:: Yes - Education Gave educational materials for:: Signs & symptoms of hypoglycemia, Signs & symptoms of hyperglycemia, Relate diabetes to coronary artery disease, Healthy eating Nutrition - 30-Day Assessment - Program Goals Nutrition Program Goals: LDL <70. Total Cholesterol <200. HDL >45. Triglycerides <150. HgbA1C <7%. BMI <25 - Stages of Change Stages of Change:: Action - Lipids Has the patient seen the dietitian?: No - Diabetes Diabetes:: Yes Random Blood Glucose:: 287 - 142-332 - Intervention Referral to dietitian:: Yes Referral to Diabetic Clinic:: No Will attend diet classes:: Yes - Education Attended class for:: Signs & symptoms of hypoglycemia, Signs & symptoms of hyperglycemia, Relate diabetes to coronary artery disease, Healthy eating Nutrition - 60-Day Assessment - Program Goals Nutrition Program Goals: LDL <70. Total Cholesterol <200. HDL >45. Triglycerides <150. HgbA1C <7%. BMI <25 - Visit Date of Eval: 05/18/17 - Stages of Change Stages of Change:: Action - Lipids Has the patient seen the dietitian?: No - Diabetes Diabetes:: Yes - Intervention Referral to dietitian:: Yes Referral to Diabetic Clinic:: No Will attend diet classes:: Yes - Education Attended class for:: Signs & symptoms of hypoglycemia, Signs & symptoms of hyperglycemia, Relate diabetes to coronary artery disease, Healthy eating Nutrition - 90-Day Assessment - Program Goals Nutrition Program Goals: LDL <70. Total Cholesterol <200. HDL >45. Triglycerides <150. HgbA1C <7%. BMI <25 - Visit Date of Eval: 06/14/17 - 05/12/2017-06/09/2017 - Stages of Change Stages of Change:: Action - Lipids Has the patient seen the dietitian?: No - Diabetes Diabetes:: Yes Fasting blood glucose:: 183 Random Blood Glucose:: 158 - Weight Management Weight:: 110.223 kg - Intervention Referral to dietitian:: Yes Referral to Diabetic Clinic:: No Will attend diet classes:: Yes - Education Attended class for:: Signs & symptoms of hypoglycemia, Signs & symptoms of hyperglycemia, Relate diabetes to coronary artery disease, Healthy eating Nutrition - Final Assessment - Program Goals Nutrition Program Goals: LDL <70. Total Cholesterol <200. HDL >45. Triglycerides <150. HgbA1C <7%. BMI <25 - Diabetes Diabetes:: Yes - Weight Management Total Score:: 3 - Intervention Referral to dietitian:: Yes Referral to Diabetic Clinic:: No Will attend diet classes:: Yes Tobacco - Initial Assessment - Program Goals Tobacco Program Goals: Complete smoking cessation. Attend education classes. Improve Knowledge Test score - Stage of Change Stages of Change:: Contemplate - Learning Barriers Learning Barriers: Vision Total Score:: 9 - Family Support Do you have family support?: Yes - Tobacco Use Tobacco Use: Non-smoker How long ago did you quit using tobacco products?: Greater than or equal to 6 months ago Do you use smokeless tobacco?: No - Intervention Smoking Cessation Referral:: No Individual Education/Counseling:: No Education Schedule Given:: Yes - Education Gave educational material for:: Tobacco triggers, Coronary artery disease, Risk factors, Sexuality, Medical compliance, Cardiac A&P, Angina signs & symptoms Tobacco - 30-Day Assessment - Program Goals Tobacco Program Goals: Complete smoking cessation. Attend education classes. Improve Knowledge Test score - Stage of Change Stages of Change:: Action - Learning Barriers Learning Barriers: Participates in education - Family Support Do you have family support?: Yes - Tobacco Use Tobacco Use: Non-smoker Do you use smokeless tobacco?: No - Intervention Smoking Cessation Referral:: No Individual Education/Counseling:: No Education Schedule Given:: Yes - Education Attended class for:: Tobacco triggers, Coronary artery disease, Risk factors, Sexuality, Medical compliance, Cardiac A&P, Angina signs & symptoms Tobacco - 60-Day Assessment - Program Goals Tobacco Program Goals: Complete smoking cessation. Attend education classes. Improve Knowledge Test score - Stage of Change Stages of Change:: Action - Learning Barriers Learning Barriers: Participates in education, Change in behavior - Family Support Do you have family support?: Yes - Tobacco Use Tobacco Use: Non-smoker Do you use smokeless tobacco?: No - Intervention Smoking Cessation Referral:: No Individual Education/Counseling:: No Education Schedule Given:: Yes - Education Attended class for:: Tobacco triggers, Coronary artery disease, Risk factors, Sexuality, Medical compliance, Cardiac A&P, Angina signs & symptoms Tobacco - 90-Day Assessment - Program Goals Tobacco Program Goals: Complete smoking cessation. Attend education classes. Improve Knowledge Test score - Stage of Change Stages of Change:: Action - Learning Barriers Learning Barriers: Participates in education, Change in behavior - Family Support Do you have family support?: Yes - Tobacco Use Tobacco Use: Non-smoker Do you use smokeless tobacco?: No - Intervention Smoking Cessation Referral:: No Individual Education/Counseling:: No Education Schedule Given:: Yes - Education Attended class for:: Tobacco triggers, Coronary artery disease, Risk factors, Sexuality, Medical compliance, Cardiac A&P, Angina signs & symptoms Tobacco - Final Assessment - Program Goals Tobacco Program Goals: Complete smoking cessation. Attend education classes. Improve Knowledge Test score - Learning Barriers Cardiac Knowledge Test Score:: 9 - Family Support Do you have family support?: Yes - Tobacco Use Tobacco Use: Non-smoker Do you use smokeless tobacco?: No - Intervention Smoking Cessation Referral:: No Individual Education/Counseling:: No Education Schedule Given:: Yes Psychosocial - Initial Assess - Target Goals Target Goals: Assess presence or absence of depression. Using a valid screening tool, maximizes coping skills. Positive support system - Stages of Change Stages of Change:: Contemplate - Psychosocial Test Tool Used:: HANDS Depression Questionnaire Total Mood Screening Score:: 1 Self-Efficacy Score:: 7 - Intervention PS - Interventions: Yes Attend Stress Management Classes, Yes Uses Stress Management Skills, No Referral to Mental Health, No Referral to [facility] Case Management, No Referral to Physician - Patient/Program Goal Preventative Medication(s):: Aspirin, CORNELL inhibitor, Clopidogrel, Beta ikah, Statin/lipid - Assistive Devices Assistive Devices:: None Fall Risk Assessed:: Yes Psychosocial - 30-Day Assess - Target Goals Target Goals: Assess presence or absence of depression. Using a valid screening tool, maximizes coping skills. Positive support system - Stages of Change Stages of Change:: Action - Psychosocial Test Tool Used:: HANDS Depression Questionnaire Total Mood Screening Score:: 1 Self-Efficacy Score:: 7 - Patient/Program Goal Preventative Medication(s):: Aspirin, CORNELL inhibitor, Clopidogrel, Beta kiah, Statin/lipid - Assistive Devices Assistive Devices:: None Fall Risk Assessed:: Yes Psychosocial - 60-Day Assess - Target Goals Target Goals: Assess presence or absence of depression. Using a valid screening tool, maximizes coping skills. Positive support system - Stages of Change Stages of Change:: Action - Psychosocial Test Tool Used:: HANDS Depression Questionnaire Total Mood Screening Score:: 1 Self-Efficacy Score:: 7 - Patient/Program Goal Preventative Medication(s):: Aspirin, CORNELL inhibitor, Clopidogrel, Beta kiah, Statin/lipid - Assistive Devices Assistive Devices:: None Fall Risk Assessed:: Yes Psychosocial - 90-Day Assess - Target Goals Target Goals: Assess presence or absence of depression. Using a valid screening tool, maximizes coping skills. Positive support system - Stages of Change Stages of Change:: Action - Psychosocial Test Tool Used:: HANDS Depression Questionnaire Total Mood Screening Score:: 1 Self-Efficacy Score:: 7 - Intervention PS - Interventions: Yes Attend Stress Management Classes, Yes Uses Stress Management Skills, No Referral to Mental Health, No Referral to [facility] Case Management, No Referral to Physician - Education Attended classes for:: Coping techniques, Signs & symptoms of depression, Stress management, Relaxation techniques - Patient/Program Goal Preventative Medication(s):: Aspirin, CORNELL inhibitor, Clopidogrel, Beta kiah, Statin/lipid - Assistive Devices Assistive Devices:: None Fall Risk Assessed:: Yes Psychosocial - Final Assessmen - Target Goals Target Goals: Assess presence or absence of depression. Using a valid screening tool, maximizes coping skills. Positive support system - Psychosocial Test Tool Used:: HANDS Depression Questionnaire Total Mood Screening Score:: 1 Self-Efficacy Score:: 7 - Patient/Program Goal Preventative Medication(s):: Aspirin, CORNELL inhibitor, Clopidogrel, Beta kiah, Statin/lipid - Assistive Devices Assistive Devices:: None Fall Risk Assessed:: Yes Patient Health Questionnaire 90-Day Re-eval Assessment 1. Little interest or pleasure in doing things: Not at all 2. Feeling down, depressed, or hopeless: Not at all 3. Trouble falling or staying asleep, or sleeping too much: Not at all 4. Feeling tired or having little energy: Not at all 5. Poor appetite or overeating: Not at all 6. Feeling bad about yourself -- or that you are a failure or have let yourself or your family down: Not at all 7. Trouble concentrating on things, such as reading the newspaper or watching television: Not at all 8. Moving or speaking so slowly that other people could have noticed. Or the opposite - being so fidgety or restless that you have been moving around a lot more than usual: Not at all 9. Thoughts that you would be better off , or of hurting yourself in some way: Not at all Total Score: 0 Self-Efficacy 90-Day Re-eval Assessment We would like to know how confident you are in doing certain activities. Please select your confidence level for:: Select your confidence level for the following using the scale 1-10 where 1 is not at all confident and 10 is totally confident. Your score is the average of all 6 responses. Fatigue: How confident are you that you can keep the fatigue caused by your disease from interfering with the things you want to do? Select Number: 8 Physical Discomfort or Pain: How confident are you that you can keep the physical discomfort or pain of your disease from interfering with the things you want to do? Select Number: 8 Emotional Distress: How confident are you that you can keep the emotional distress caused by your disease from interfering with the things you want to do? Select Number: 8 Other Symptoms or Health Problems: How confident are you that you can keep other symptoms or health problems from interfering with the things you want to do? Select Number: 8 Different Tasks and Activities: How confident are you that you can do the different tasks and activities needed to manage your health condition so as to reduce your need to see a doctor? Select Number: 8 Medication: How confident are you that you can do things other than just taking medication to reduce how much your illness affects your everyday life? Select Number: 8 Total Score:: 8 Cardiac Rehabilitation Goals - Cardiac Rehab Goals Cardiac Rehabilitation Goals: 1. Maintain the individual as the primary focus of care. 2. To improve the patient's quality of life. 3. Identification of cardiac risk factors and provide cardiac risk factor management. 4. Enhance the psychosocial status of the patient. 5. Reconditioning enough to allow the patient to resume customary activities. 6. Control symptoms of cardiac disease - Scale Scale for measuring improvement of personal goals: Enter appropriate number in Comments. 2 = Unchanged. 3 = Slightly Better. 4 = Moderate Improvement. 5 = Met my Goal 90-Day Re-eval Assessment Personal Goals: 60-day Re-assessment: Improve energy level, Participate in home exercise program, Get back to work, or to resume activities faster, Improve knowledge of cardiac disease, Improve muscle strength and endurance, Improve diet and eating habits (eat healthier), Control risk factors (learn risk factor modification)
== END 2017-06-19 23:59 ==
LOC: CR 13:00
PROVIDERS: Family Provider Family Medicine; PCP Family Medicine; Visit Provider Internal Medicine Cardiovascular Disease
DX: Z95.1 Presence of aortocoronary bypass graft (principal)
CPT/HCPCS: 93798

== ENCOUNTER → 2017-06-23 21:20 | Outpatient (CLI) | payer OTHER, SELFPAY | PROVIDERS: Family Provider Family Medicine; PCP Family Medicine; Visit Provider Registered Nurse | DX: G47.33 Obstructive sleep apnea (adult) (pediatric) (principal) | CPT/HCPCS: 95811 ==

== ENCOUNTER 2017-06-30 13:00 | Outpatient (RCR) | payer OTHER, SELFPAY ==
[2017-06-20 00:42] VITALS: BP 114/68; BP 130/60; BP 146/60; PULSE 55; BMI 31.6
--- NOTE | 2017-07-12 15:14 | PCM.CR.ITP ---
Exercise - Final/Discharge - Visit Date of Eval: 07/12/17 Session #:: 29 - Stages of Change Stages of Change:: Action - Exercise Prescription Mode:: Treadmill, Rower, Airdyne, NuStep Frequency (x/week): 3 Duration:: 30 METs: 8.8 Target Heart Rate:: 107-115 - Hypertension Do any of the following apply?: Yes, Medication, Diet Resting Blood Pressure:: 104/66 - optimal management <130/80 - Intervention Home Exercise/Activity Goal:: Moderate Exercise 30 min/day x 5 days/wk - Education Goal Progress: Goal Met - Exercise Program Goals Exercise Program Goals: Aerobic Activity >30 min Nutrition - Final Assessment - Program Goals Nutrition Program Goals: LDL <70. Total Cholesterol <200. HDL >45. Triglycerides <150. HgbA1C <7%. BMI <25 - Visit Date of Eval: 07/12/17 - Stages of Change Stages of Change:: Action - Diabetes Diabetes:: No - Weight Management Height: 6 ft 1 in Weight:: 238 lb - no significant change Body Fat %:: 31.6 - Intervention Referral to dietitian:: No Referral to Diabetic Clinic:: No Will attend diet classes:: Yes - Education Education Goal Reached?: Yes Tobacco - Initial Assessment - Program Goals Tobacco Program Goals: Complete smoking cessation. Attend education classes. Improve Knowledge Test score - Learning Barriers Learning Barriers: Vision Tobacco - Final Assessment - Program Goals Tobacco Program Goals: Complete smoking cessation. Attend education classes. Improve Knowledge Test score - Stage of Change Stages of Change:: Action - Family Support Do you have family support?: Yes - Tobacco Use Tobacco Use: Non-smoker Do you use smokeless tobacco?: No - Intervention Smoking Cessation Referral:: No Individual Education/Counseling:: No Education Schedule Given:: Yes - Education Education Goal Reached?: Yes Psychosocial - Initial Assess - Target Goals Target Goals: Assess presence or absence of depression. Using a valid screening tool, maximizes coping skills. Positive support system - Psychosocial Test Tool Used:: HANDS Depression Questionnaire - Assistive Devices Fall Risk Assessed:: Yes Psychosocial - Final Assessmen - Target Goals Target Goals: Assess presence or absence of depression. Using a valid screening tool, maximizes coping skills. Positive support system - Stages of Change Stages of Change:: Action - Psychosocial Test Tool Used:: HANDS Depression Questionnaire Self-reported stress:: no - Intervention PS - Interventions: Yes Attend Stress Management Classes, Yes Uses Stress Management Skills, No Referral to Mental Health, No Referral to [facility] Case Management, No Referral to Physician - Education Education Goal Reached?: Yes - Patient/Program Goal Preventative Medication(s):: Aspirin, Clopidogrel, Beta kiah, Statin/lipid - Assistive Devices Assistive Devices:: None Fall Risk Assessed:: Yes Patient Health Questionnaire Discharge Assessment 1. Little interest or pleasure in doing things: Not at all 2. Feeling down, depressed, or hopeless: Not at all 3. Trouble falling or staying asleep, or sleeping too much: Not at all 4. Feeling tired or having little energy: Not at all 5. Poor appetite or overeating: Not at all 6. Feeling bad about yourself -- or that you are a failure or have let yourself or your family down: Not at all 7. Trouble concentrating on things, such as reading the newspaper or watching television: Not at all 8. Moving or speaking so slowly that other people could have noticed. Or the opposite - being so fidgety or restless that you have been moving around a lot more than usual: Not at all 9. Thoughts that you would be better off , or of hurting yourself in some way: Not at all How difficult have these problems made it for you to do your work, take care of things at home, or get along with other people?: Not difficult at all Total Score: 0 BENOIT-Q SV Test - Statements CAD is a disease of the arteries in the heart: False Examples of risk factors for heart disease: True Angina is chest pain or discomfort: True The benefits of resistance training include: True Eating more meat and dairy products: False Anti-platelet medications such as aspirin are important: True The only effective way to manage stress: False An exercise warm-up slowly increases heart rate: True Prepared, processed foods usually have high sodium: True Depression is common after a heart attack: True The statin medications lower cholesterol: True To control blood pressure, lower the amount of sodium: True If someone gets chest discomfort during walking: False Transfats are partially hydrogenated vegetable oils: True Sleep apnea that is not treated increases the risk: False To control cholesterol, one should become a vegetarian: True Someone knows if he/she is exercising at the right level: False Diabetes cannot be prevented with exercise & health eating: False Stress is a large risk for heart attack: False A diet that can help lower blood pressure is rich in: True - Total Score Total Correct Responses: 16 Self-Efficacy Discharge Assessment We would like to know how confident you are in doing certain activities. Please select your confidence level for:: Select your confidence level for the following using the scale 1-10 where 1 is not at all confident and 10 is totally confident. Your score is the average of all 6 responses. Fatigue: How confident are you that you can keep the fatigue caused by your disease from interfering with the things you want to do? Select Number: 10 Physical Discomfort or Pain: How confident are you that you can keep the physical discomfort or pain of your disease from interfering with the things you want to do? Select Number: 10 Emotional Distress: How confident are you that you can keep the emotional distress caused by your disease from interfering with the things you want to do? Select Number: 10 Other Symptoms or Health Problems: How confident are you that you can keep other symptoms or health problems from interfering with the things you want to do? Select Number: 10 Different Tasks and Activities: How confident are you that you can do the different tasks and activities needed to manage your health condition so as to reduce your need to see a doctor? Select Number: 10 Medication: How confident are you that you can do things other than just taking medication to reduce how much your illness affects your everyday life? Select Number: 10 Total Score:: 10 Nutrition Survey - Nutrition Survey Instructions Scoring Instructions: Scoring is as follows: Yes = 1 points. No = 0 point. Patient score that is >/=12 is considered to be at potential nutritional risk and could benefit from a referral to a registered dietitian. - Nutrition Survey Discharge Have you lost >10 lbs over the past 2 months without trying?: No Are you following a special diet at home for diabetes, low fat, or low salt?: No Are you interested in meeting with a dietitian for help understanding your diet?: No Do you eat less than 3 meals a day?: No Do you eat fatty meats (rojas, sausage, ribs, etc), fried foods, desserts, large amounts of salad dressings, margarine, butter, or cheese most days?: Yes Do you have food allergies? [Enter types in comment field]: No Do you eat in restaurants more than 3 times a week?: Yes Do you season food with salt, seasoning salt, or garlic salt?: No Do you used canned, boxed, frozen meals, or soups, seasoning packets?: Yes Total Score:: 3
[2017-07-12 15:20] VITALS: BP 104/66
== END 2017-07-09 11:09 | disposition home or self-care (01) ==
LOC: CR 13:00
PROVIDERS: Family Provider Family Medicine; PCP Family Medicine; Visit Provider Internal Medicine Cardiovascular Disease
DX: Z95.1 Presence of aortocoronary bypass graft (principal)
CPT/HCPCS: 93798

== ENCOUNTER 2017-08-01 10:00 | Inpatient (IN) | payer OTHER, SELFPAY ==
[2017-08-01] VITALS (20 sets, daily range): BP systolic 118–155; BP diastolic 63–83; PULSE 59–83; RESP 11–20; TEMP 36.3–37.1; O2SAT 92–97; BMI 30.9; BMI 30.3; BMI 30.4
--- NOTE | 2017-08-01 10:30 | CT_ITS ---
STUDY: CT BRAIN WITHOUT CONTRAST REASON FOR EXAM: Male, 66 years old. Vision changes following injury. RADIATION DOSAGE (If Supplied By Facility): CTDIvol = ( 44.99 ) mGy, DLP = ( 846.73 ) mGycm TECHNIQUE: Transaxial CT imaging of the brain was performed without administration of intravenous contrast material. Individualized dose optimization techniques were used for this CT. COMPARISON: None. FINDINGS: Right posterior soft tissue swelling is present. Normal calvarium. Within the left posterior parietal-occipital region is a hypodense region of parenchyma measuring approximately 3 cm in diameter most concerning for infarct with underlying lesion not excluded. Mild edema extends into the left temporal lobe Normal white matter tracts of the cerebral hemispheres. Normal basal ganglia and thalami. Normal brainstem. Normal cerebellum. There is no intracranial hemorrhage. There are no findings of an acute ischemic infarction. Normal visualized paranasal sinuses. CT/Brain/Head without Contrast IMPRESSION: 1. Left posterior parietal-occipital hypodensity most concerning for acute infarct with underlying lesion not excluded. Recommend MRI evaluation for further characterization. Previous underlying infarct is not excluded. 2. Right posterior subcutaneous soft tissue injury, clinically correlate. No evidence of underlying fracture. N.B. : The above information has been verbally conveyed by Oleg Benson DO to Marija Saenz on 08/01/2017 11:39:15 (ET). Electronically Signed: Oleg Benson DO at 11:39 EDT , Service support , N.B. : The above information has been verbally conveyed by Oleg Benson DO to Marija Saenz on 08/01/2017 11:39:15 (ET).
--- NOTE | 2017-08-01 10:30 | EKG12_ITS ---
Test Reason : NEURO Blood Pressure : / mmHG Vent. Rate : 062 BPM Atrial Rate : 062 BPM P-R Int : 182 ms QRS Dur : 138 ms QT Int : 442 ms P-R-T Axes : 021 -58 131 degrees QTc Int : 448 ms Normal sinus rhythm Right bundle branch block Left anterior fascicular block Bifascicular block T wave abnormality, consider lateral ischemia Abnormal ECG Confirmed by FABIOLA WILLETT, EDWIN ([id number]), newspaper or periodical editor JESSIKA BUSTILLO ([id number]) on 08/03/2017 1:27:22 PM Referred By: NILDA Confirmed By:EDWIN HICKS MD
[2017-08-01 10:48] LABS: Absolute Lymphocyte Count 1.49 X10^3/ul (0.83-4.51); Basophil# 0.03 X10^3/uL; Basophil% 0.4 % (0-1); Eosinophils% 1.2 % (0-5); Hematocrit 42.3 % (40-54); Hemoglobin 14.1 g/dl (13.0-16.5); Lymphocyte # 1.49 X10^3/ul (4.0); Lymphocyte % 18.3 % (19-41); Mean Corp Hgb Conc 33.3 g/gl (32-36); Mean Corpuscular Hgb 28.5 pg (27.0-32.0); Mean Corpuscular Volume 85.5 fL (80-94); Mean Platelet Vol. 11.5 fl (6.2-12.0); Monocyte# 0.47 X10^3/uL; Monocyte% 5.8 % (0-10); Neutrophil # 5.99 X10^3/uL (2.7-7.7); Neutrophil % 73.6 % (47-70); POSITIVE COUNT NO; POSITIVE DIFFERENTIAL NO; POSITIVE MORPHOLOGY NO; Platelet Count 222 K/mm3 (150-450); RBC Distribution Width SD 46.4 fl (35.1-43.9); Red Blood Count 4.95 M/mm3 (4.6-6.2); White Blood Count 8.1 K/mm3 (4.4-11.0)
[2017-08-01 10:49] LABS: Prothrombin Time (Protime)PT. 12.8 SECONDS (11.7-14.9)
[2017-08-01 10:50] LABS: Partial Thromboplast Time 30.4 Seconds (24.1-36.2)
[2017-08-01 11:04] LABS: Anion Gap 10 (5-15); BUN 21 mg/dL (7-18); Calcium,Total 9.3 mg/dL (8.5-10.1); Chloride 99 mmol/L (98-107); Creatinine, Serum 1.31 mg/dL (0.70-1.30); EST Glomerular Filtration Rate 58 mL/min (>60); Est Glom Filt Rate - Afr Amer 70 mL/min (>60); Estimated Creatinine Clearance 62.69 ml/min; Glucose 314 mg/dL (74-106); Potassium 4.2 mmol/L (3.5-5.1); Sodium Level 136 mmol/L (136-145)
--- NOTE | 2017-08-01 11:05 | RAD_ITS ---
STUDY: X-RAY CHEST REASON FOR EXAM: Male, 66 years old. Shortness of breath. TECHNIQUE: Single AP portable view of the chest. COMPARISON: 19 January 2017 FINDINGS: Tenotomy wires are midline. The lungs are clear and expanded. There is no demonstrated pleural abnormality. Normal size heart. Normal mediastinum and nasrin. Normal visualized pulmonary arteries. Normal visualized aortic arch and descending thoracic aorta. Normal visualized thoracic spine. Normal visualized ribs, clavicles, and shoulders. There is no demonstrated abnormality of the visualized soft tissue structures of the upper abdomen. RAD/Chest 1 View IMPRESSION: No evidence of acute cardiopulmonary process. Electronically Signed: Oleg Benson DO at 11:35 EDT , Service support ,
--- NOTE | 2017-08-01 11:48 | ED.DCSUM_ITS ---
- ER Visit Summary Date of Service: 08/01/17 Chief Complaint: Difficulty reading History of Present Illness: The patient is a 66 M presenting with difficulty with reading. Patient states on Wednesday, 2 days ago he had an episode which he felt was low blood sugar. He did not check his blood sugar at the time. He states he had tunnel vision, lightheadedness, headache. This improved with eating. He states he has had multiple low blood sugars in the past and this felt similar. He said since that time he has difficulty reading. He states he is able to see normally and has no vision changes. He states he has to sound out the word and then is able to read the word. He is able to write. He denies any other complaints. He has a history of a concussion 4 weeks ago while at work. He states he has been having dizziness and headache since that time. Denies other complaints. Physical Examination: Vitals are stable. Patient is afebrile. Alert no acute distress. HEENT exam is unremarkable. Neck is supple. Lungs are clear and equal bilaterally. Heart is regular rate and rhythm. Abdomen is soft nontender nondistended. Extremities are unremarkable. Skin is warm and dry. No focal neurologic deficit. NIH 0 Remainder of exam is unremarkable. Emergency Department Course and Treatment: EKG is sinus rate is 62 unchanged from previous. Chest x-ray shows no acute process. CBC is normal. Chemistries normal except for glucose 314, BUN 21, creatinine 1.31. INR is 1.0. Troponin is negative. CT head shows left posterior parietal-occipital hypodensity most concerning for acute infarct with underlying lesion not excluded. Recommend MRI evaluation for further characterization. Previous underlying infarct is not excluded. Right posterior subcutaneous soft tissue injury, clinically correlate. No evidence of underlying fracture. Discussed with Dr. Yadav. Patient will be admitted to the hospitalist. Disposition: Admission Impression: Acute CVA This note was generated with Panor[employer] dictation software. It may contain incorrect words, spelling, and punctuation that were not noted in review of the chart prior to signing ED Disposition - Plan for ED Patient: Disposition: Acute Care Hospital [facility] Chief Complaint: Neuro S/Sx
--- NOTE | 2017-08-01 11:55 | CT_ITS ---
STUDY: CTA NECK WITH CONTRAST REASON FOR EXAM: Male, 66 years old. Left posterior infarct, question mass. RADIATION DOSAGE (If Supplied By Facility): CTDIvol = ( 26.45 ) mGy, DLP = ( 797.13 ) mGycm TECHNIQUE: CT angiography with multi-detector data acquisition was performed from the aortic arch to the skull base following intravenous administration of 100 ml of Isovue 370 contrast. MIP images were reconstructed from the axial data set. Post-processing of the angiographic images was performed, with multiplanar reformation and 3D reconstruction. Individualized dose optimization techniques were used for this CT. COMPARISON: None. FINDINGS: AORTIC ARCH: Normal visualized aortic arch. Normal origins of the brachiocephalic, left common carotid, and left subclavian arteries. RIGHT CAROTID ARTERIES: Normal right common carotid artery (CCA). There is mild atherosclerotic plaque formation with minimal narrowing of the right carotid bulb. Normal origin of the right internal carotid (ICA) artery without a hemodynamically significant stenosis. Normal visualized cervical portion of the right internal carotid artery. Normal origin of the right external carotid artery (ECA). LEFT CAROTID ARTERIES: Normal left common carotid artery (CCA). There is mild atherosclerotic plaque formation with minimal narrowing of the left carotid bulb. Normal origin of the left internal carotid (ICA) artery without a hemodynamically significant stenosis. Normal visualized cervical portion of the left internal carotid artery. Normal origin of the left external carotid artery (ECA). VERTEBRAL ARTERIES: There is a diminutive right vertebral artery with termination within the posterior segment. The left vertebral artery is dominant feeding the basilar artery. IMPRESSION: 1. No evidence of significant steno-occlusive disease or aneurysm. Mild bilateral carotid bulb atherosclerosis. Electronically Signed: Oleg Benson DO at 13:15 EDT , Service support , STUDY: CTA OF THE BRAIN REASON FOR EXAM: Male, 66 years old. Left posterior infarct versus mass. RADIATION DOSAGE (If Supplied By Facility): CTDIvol = ( 26.45 ) mGy, DLP = ( 797.13 ) mGycm TECHNIQUE: CT angiography was performed with a multi-detector CT scanner. Data acquisition was obtained from the skull base through the vertex following intravenous administration of 100 ml of IV contrast. MIP images were reconstructed from the axial data set. Post-processing of the angiographic images was performed, with multiplanar reformation and 3D reconstruction. Individualized dose optimization techniques were used for this CT. COMPARISON: None. FINDINGS: Normal bilateral petrous carotid arteries. Normal right cavernous carotid artery with a normal supraclinoid bifurcation. Normal left cavernous carotid artery with a normal supraclinoid bifurcation. Normal right A1 segments of the anterior cerebral artery. Normal left A1 segments of the anterior cerebral artery. Normal intact anterior communicating artery (ACOM). Normal bilateral A2 segments of the anterior cerebral arteries. Normal right M1 and M2 segments of the middle cerebral arteries, with a normal M1 bifurcation. Normal left M1 and M2 segments of the middle cerebral arteries, with a normal M1 bifurcation. There is non-visualization of the right posterior communicating artery (PCOM). There is non-visualization of the left posterior communicating artery (PCOM). The right vertebral artery terminates in the posterior circulation. Normal basilar artery with a normal basilar bifurcation. The visualized bilateral superior cerebellar (SCA) arteries are normal. Normal bilateral P1, P2 and visualized P3 segments of the posterior cerebral arteries. There is no demonstrated aneurysm of the [place]. Within the region of the left posterior hypodensity is noted no evidence of enhancing mass or definitive lesion. CT/CTA Neck W/WO Contrast IMPRESSION: 1. No evidence of significant steno-occlusive disease or aneurysm. No evidence of definitive enhancing mass within the left posterior parietal hypodensity with differential including previous infarct, recent infarct and underlying edema. Definitive characterization may be obtained with MRI evaluation versus previous comparative imaging and clinical correlation. Electronically Signed: Oleg Benson DO at 12:55 EDT , Service support ,
--- NOTE | 2017-08-01 11:55 | CT_ITS ---
STUDY: CTA NECK WITH CONTRAST REASON FOR EXAM: Male, 66 years old. Left posterior infarct, question mass. RADIATION DOSAGE (If Supplied By Facility): CTDIvol = ( 26.45 ) mGy, DLP = ( 797.13 ) mGycm TECHNIQUE: CT angiography with multi-detector data acquisition was performed from the aortic arch to the skull base following intravenous administration of 100 ml of Isovue 370 contrast. MIP images were reconstructed from the axial data set. Post-processing of the angiographic images was performed, with multiplanar reformation and 3D reconstruction. Individualized dose optimization techniques were used for this CT. COMPARISON: None. FINDINGS: AORTIC ARCH: Normal visualized aortic arch. Normal origins of the brachiocephalic, left common carotid, and left subclavian arteries. RIGHT CAROTID ARTERIES: Normal right common carotid artery (CCA). There is mild atherosclerotic plaque formation with minimal narrowing of the right carotid bulb. Normal origin of the right internal carotid (ICA) artery without a hemodynamically significant stenosis. Normal visualized cervical portion of the right internal carotid artery. Normal origin of the right external carotid artery (ECA). LEFT CAROTID ARTERIES: Normal left common carotid artery (CCA). There is mild atherosclerotic plaque formation with minimal narrowing of the left carotid bulb. Normal origin of the left internal carotid (ICA) artery without a hemodynamically significant stenosis. Normal visualized cervical portion of the left internal carotid artery. Normal origin of the left external carotid artery (ECA). VERTEBRAL ARTERIES: There is a diminutive right vertebral artery with termination within the posterior segment. The left vertebral artery is dominant feeding the basilar artery. IMPRESSION: 1. No evidence of significant steno-occlusive disease or aneurysm. Mild bilateral carotid bulb atherosclerosis. Electronically Signed: Oleg Benson DO at 13:15 EDT , Service support , STUDY: CTA OF THE BRAIN REASON FOR EXAM: Male, 66 years old. Left posterior infarct versus mass. RADIATION DOSAGE (If Supplied By Facility): CTDIvol = ( 26.45 ) mGy, DLP = ( 797.13 ) mGycm TECHNIQUE: CT angiography was performed with a multi-detector CT scanner. Data acquisition was obtained from the skull base through the vertex following intravenous administration of 100 ml of IV contrast. MIP images were reconstructed from the axial data set. Post-processing of the angiographic images was performed, with multiplanar reformation and 3D reconstruction. Individualized dose optimization techniques were used for this CT. COMPARISON: None. FINDINGS: Normal bilateral petrous carotid arteries. Normal right cavernous carotid artery with a normal supraclinoid bifurcation. Normal left cavernous carotid artery with a normal supraclinoid bifurcation. Normal right A1 segments of the anterior cerebral artery. Normal left A1 segments of the anterior cerebral artery. Normal intact anterior communicating artery (ACOM). Normal bilateral A2 segments of the anterior cerebral arteries. Normal right M1 and M2 segments of the middle cerebral arteries, with a normal M1 bifurcation. Normal left M1 and M2 segments of the middle cerebral arteries, with a normal M1 bifurcation. There is non-visualization of the right posterior communicating artery (PCOM). There is non-visualization of the left posterior communicating artery (PCOM). The right vertebral artery terminates in the posterior circulation. Normal basilar artery with a normal basilar bifurcation. The visualized bilateral superior cerebellar (SCA) arteries are normal. Normal bilateral P1, P2 and visualized P3 segments of the posterior cerebral arteries. There is no demonstrated aneurysm of the [place] of [place]. Within the region of the left posterior hypodensity is noted no evidence of enhancing mass or definitive lesion. CT/CTA Head W/WO Contrast IMPRESSION: 1. No evidence of significant steno-occlusive disease or aneurysm. No evidence of definitive enhancing mass within the left posterior parietal hypodensity with differential including previous infarct, recent infarct and underlying edema. Definitive characterization may be obtained with MRI evaluation versus previous comparative imaging and clinical correlation. Electronically Signed: Oleg Benson DO at 12:55 EDT , Service support ,
--- NOTE | 2017-08-01 14:19 | ECHOD_ITS ---
Reason For Study: TIA/CVA Procedure This was a 2D Doppler, Color Flow transthoracic echocardiogram. Exam performed portable in patient room. Left Ventricle Normal LV size. Left ventricular systolic function is lower limits of normal. The estimated ejection fraction is 53 %. Transmitral diastolic flow velocities suggest mild (stage 1) diastolic dysfunction (reversed pattern). No regional wall motion abnormalities noted. Right Ventricle Normal RV size. Normal systolic function. Atria The left atrium is mildly enlarged. Normal right atrium. Bubble contrast study negative for right to left interatrial shunt. Mitral Valve Normal mitral valve. Mild (1+) eccentric mitral valve insufficiency. Tricuspid Valve Normal tricuspid valve. Mild (1+) tricuspid valve insufficiency. Pulmonary artery systolic pressure is 34 mmHg. Aortic Valve Trisinus/trileaflet aortic valve. Pulmonic Valve Normal pulmonic valve. Great Vessels Normal aortic root. The pulmonary artery is normal size. Normal inferior vena cava. Pericardium/Pleural No pericardial effusion. Medication Performed a rapid injection of agitated mix of 9 cc saline and 1cc air to assess for atrial septal defect. MMode/2D Measurements & Calculations LVIDd: 5.9 cm IVSd: 1.3 cm Ao root diam: 3.3 cm LVIDs: 5.3 cm LVPWd: 1.0 cm RVDd: 3.6 cm FS: 9.7 % LAV(MOD-bp): 86.9 ml EDV(MOD-sp4): 143.5 ml EDV(MOD-sp2): 151.3 ml LAV(MOD-bp) Indexed: 38.0 ml/m2 ESV(MOD-sp4): 73.4 ml EF(MOD-sp2): 39.7 % LAV(MOD-sp2): 92.0 ml EF(MOD-sp4): 48.9 % LAV(MOD-sp4): 72.0 ml SV(MOD-sp4): 70.2 ml SV(MOD-sp2): 60.1 ml LA A4 area: 24.4 cm2 RA A4 area: 19.0 cm2 Doppler Measurements & Calculations MV E max christian: 44.0 cm/sec Lat Peak E' Christian: 10.1 cm/sec Med Peak E' Christian: 4.5 cm/sec MV A max christian: 35.4 cm/sec E/E' lat: 4.3 E/E' med: 9.7 MV E/A: 1.2 Ao V2 max: 93.4 cm/sec LV V1 max: 76.5 cm/sec PA V2 max: 76.8 cm/sec Ao max P.5 mmHg LV V1 max P.3 mmHg PI end-d christian: 141.5 cm/sec TR max christian: 269.4 cm/sec TR max P.0 mmHg Interpretation Summary Normal LV size. Left ventricular systolic function is lower limits of normal. The estimated ejection fraction is 53 %. Transmitral diastolic flow velocities suggest mild (stage 1) diastolic dysfunction (reversed pattern). Mild (1+) eccentric mitral valve insufficiency. Mild (1+) tricuspid valve insufficiency. Ordering Physician: Sameer Houston Referring Physician: MARÍA HUGHES Performed By: Sheila Olea, OPAL, RVT
--- NOTE | 2017-08-01 14:42 | HP.PCM_ITS ---
Problem List (1) Ischemic stroke Status: Acute (2) Dizziness Status: Chronic (3) Essential (primary) hypertension Status: Chronic (4) Atherosclerosis of [place] coronary artery of [place] heart without angina pectoris Status: Chronic Comment: CABG- THRASHER to LAD, reverse SVG to post lateral, reverse SVG to OM 01/21/2017 (5) Unstable angina pectoris Status: Acute (6) NSTEMI (non-ST elevated myocardial infarction) Status: Acute (7) Hyperlipidemia Status: Chronic Qualifiers: Hyperlipidemia type: unspecified Qualified Code(s): E78.5 - Hyperlipidemia , unspecified; E78.5 - Hyperlipidemia, unspecified; E78.5 - Hyperlipidemia, unspecified (8) Diabetes mellitus Status: Chronic Qualifiers: Diabetes mellitus type: type 2 Diabetes mellitus alf insulin use: without 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 school teacher 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 Diabetes mellitus complication status: without complication Qualified Code(s): E11.9 - Type 2 diabetes mellitus without complications; E11.9 - Type 2 diabetes mellitus without complications; E11.9 - Type 2 diabetes mellitus without complications; E11.9 - Type 2 diabetes mellitus without complications (9) Thyroid disorder Status: Chronic History of Present Illness Date of Admission: 08/01/17 Chief Complaint: Dyslexia symptoms The patient is a 66 year old M with history significant of coronary artery disease status post three-vessel CABG in January 2017 came to ER with difficulty in reading since last Wednesday 2 days ago. Patient further said he gets an episode where he feels like tunnel vision, lightheadedness and headache that lasted for about 4 hours improves with eating. He also has difficulty in understanding the printed words although words looks fine with no distorted images. No problem in understanding spoken language/speech but he feels a little slow in his speech but no slurring or stuttering. No focal weakness or numbness or tingling. No loss of control of bladder or bowel function. Patient said he had TIA after 2 weeks of triple bypass surgery in February 2017 which recovered with no residual deficit [] Past Medical History Past Medical History (Chronic Problems): Chronic Problems (Last Updated 03/18/17 @ 10:35 by Jesús Hensley NP-C) Dizziness (Chronic) Essential (primary) hypertension (Chronic) Atherosclerosis of [place] coronary artery of [place] heart without angina pectoris (Chronic) CABG- THRASHER to LAD, reverse SVG to post lateral, reverse SVG to OM 01/21/2017 Hyperlipidemia (Chronic) Diabetes mellitus (Chronic) Thyroid disorder (Chronic) Allergies atorvastatin [From Lipitor] Adverse Reaction (Mild, Verified 08/01/17 10:03) mylgia lower leg pain lanolin Adverse Reaction (Unknown, Verified 08/01/17 10:03) Unknown Home Medications: Ambulatory Orders Medication Instructions Recorded Levothyroxine [Synthroid] 125 mcg PO DAILY 01/19/17 Multivitamin with Iron 1 ea PO DAILY 01/19/17 [Multivitamins with Iron] aspirin 81 mg tablet,delayed 81 mg PO QDAY 03/18/17 release insulin lispro protamine-lispro 25 unit SC BID ml 03/19/17 100 unit/mL (75-25) subcutaneous pen metformin 500 mg tablet 500 mg PO BID 03/19/17 metoprolol tartrate 25 mg tablet 12.5 mg PO BID #90 tab 06/24/17 losartan 25 mg tablet 25 mg PO QDAY 06/28/17 Surgical History: no surgical history Smoking Status: Former smoker - *Family History Sibling History Items: Heart Disease - [place] Maternal History Items: No pertinent history Paternal History Items: No pertinent history Review of Systems Constitutional: Denies: Chills, Fever, Weight Change HEENT: Reports: Head Aches, Visual Changes. Denies: Sinus Congestion, Sinus Drainage Cardiovascular: Denies: Chest Pain, Palpitations Respiratory: Denies: Cough, Shortness of breath at rest, Sputum production Gastrointestinal: Denies: Abdominal Pain, Nausea, Vomiting Genitourinary: Denies: Dysuria Musculoskeletal: Denies: Joint Pain, Joint Tenderness Skin: Denies: Rash, Wounds Neurological: Reports: Change in Speech. Denies: Focal weakness, Numbness, Tingling Psychiatric: Denies: Anxiety, Depression, Homicidal Ideations, Suicidal Ideations Hematologic/ Lymphatic: Denies: Easy Bruising, Easy Bleeding VTE Information - Inpt Only VTE Present on Admission: No VTE Mechan Device Prophylaxis: SCD's VTE Pharm Prophylaxis ordered?: Yes Patient Problems: Active and Suspected Problems (Last Updated 03/18/17 @ 10:35 by Jesús Hensley INSTRUCTIONAL TECHNOLOGY DIRECTOR- C) Ischemic stroke (Acute) - Physical Exam General: Alert, Oriented x3, Cooperative HEENT: Atraumatic, PERRLA, EOMI, Normocephalic Neck: Supple, No JVD, Negative Carotid Bruits Lungs: Clear to auscultation, No rhonchi, No rales, Diminished Cardiovascular: Regular rate, Regular Rhythm, Normal S1, Normal S2, No murmurs Abdomen: Bowel Sounds Present, Soft, Non Tender, Non-Distended Extremities: No edema, Capillary Refill Less than 3 Seconds Skin: No rashes, No breakdown Musculoskeletal: No Tenderness to Palpation of Joints or Extremities, Arthritic Changes Neurological: Cranial nerves II-XII grossly intact Psych/Mental Status: Normal Affect, Appropriate, - - NIHSS 0 Vital Signs Temp Pulse Resp BP Pulse Ox 98.6 F 59 L 16 130/74 H 95 08/01/17 13:12 08/01/17 14:03 08/01/17 14:03 08/01/17 14:03 08/01/17 14:03 Oxygen Delivery Method Room Air Weight: 230 lb 1.6 oz Body Mass Index (BMI) 30.3 Assessment/Plan Active and Suspected Problems (Last Updated 03/18/17 @ 10:35 by Jesús Hensley INSTRUCTIONAL TECHNOLOGY DIRECTOR- C) Ischemic stroke (Acute) The patient is a 66 year old M with history significant of coronary artery disease status post three-vessel CABG in January 2017 came to ER with difficulty in reading since last Wednesday 2 days ago. Patient further said he gets an episode where he feels like tunnel vision, lightheadedness and headache that lasted for about 4 hours improves with eating. He also has difficulty in understanding the printed words although words looks fine with no distorted images. No problem in understanding spoken language/speech but he feels a little slow in his speech but no slurring or stuttering. No focal weakness or numbness or tingling. No loss of control of bladder or bowel function. Patient said he had TIA after 2 weeks of triple bypass surgery in February 2017 which recovered with no residual deficit. 1. Subacute/recent left posterior parieto-occipital ischemic infarct with possible underlying edema: The patient had CT brain shows left posterior parietal occipital hypodensity. After that he had CT angiogram of head and neck which does not show evidence significant stenotic occlusive disease or aneurysm but reported as a recent infarct and possible underlying edema as mentioned above. MRI brain ordered. ER physician already discussed with neurologist Dr. Yadav. On cardiac monitors normal sinus rhythm. Twelve- lead EKG shows normal sinus rhythm with sinus arrhythmia with bifascicular block , right bundle branch block and left anterior fascicular block at 64 bpm. T inversion in lateral leads I, aVL and V5 and V6. First troponin is negative to previous EKG of 19 January 2017 On ischemic CVA protocol with MRI brain, 2D echo, PT, OT and speech/swallow evaluation. Patient passed initial swallow eval. BP and glucose control as per stroke guidelines. On permissive hypertension and does not need antihypertensive medication now. 2. Coronary artery disease status post three-vessel CABG in January 2017 with TIA and delayed postoperative period after 2 weeks: Patient has bilateral lower extremity numbness and mild weakness after surgery but has recovered. Currently motor and sensory function are normal in exam. Continue cardiac medications. 3. Diabetes mellitus type 2: Last blood sugar is 314. On Accu-Cheks before meals and at bedtime and cover with NovoLog sliding scale. Patient is on NovoLog NPH insulin and dose increased to 30 units twice daily. 4. Other chronic comorbidities include hypertension, dyslipidemia and thyroid disorder: TSH and free T4 ordered. Home medication reconciliation done. DVT prophylaxis: No pharmacological prophylaxis for 24 hours. Bilateral SCDs Laboratory Results 08/01/17 10:23: WBC 8.1, RBC 4.95, Hgb 14.1, Hct 42.3, MCV 85.5, MCH 28.5, MCHC 33.3, RDW 15.0 H, RDW Differential 46.4 H, Plt Count 222, MPV 11.5, Immature Gran % (Auto) 0.700, Neut % (Auto) 73.6 H, Lymph % (Auto) 18.3 L, Collin % (Auto) 5.8, Eos % (Auto) 1.2, Baso % (Auto) 0.4, Absolute Neuts (auto) 6.0, Absolute Lymphs (auto) 1.49, Total Counted Not Reportable 08/01/17 10:23: PT 12.8, INR 1.0, APTT 30.4 08/01/17 10:23: Sodium 136, Potassium 4.2, Chloride 99, Carbon Dioxide 27.0, Anion Gap 10, BUN 21 H, Creatinine 1.31 H, Estim Creat Clear Calc 62.69, Est GFR (MDRD) Af Amer 70, Est GFR (MDRD) Non-Af 58 L, BUN/Creatinine Ratio 16.0, Glucose 314 H, Calcium 9.3, Troponin I < 0.020 08/01/17 10:25: Total Creatine Kinase 55 08/01/17 10:25: Total Bilirubin 0.50, Direct Bilirubin 0.11, AST 17, ALT 23, Alkaline Phosphatase 71, Total Protein 8.1, Albumin 3.3, Globulin 4.8 H, TSH 3.67 08/01/17 14:45: Troponin I 0.022 Clinical Impression(s) from Imaging Studies Brain CT 08/01/17 10:30 IMPRESSION: 1. Left posterior parietal-occipital hypodensity most concerning for acute infarct with underlying lesion not excluded. Recommend MRI evaluation for further characterization. Previous underlying infarct is not excluded. 2. Right posterior subcutaneous soft tissue injury, clinically correlate. No evidence of underlying fracture. N.B. : The above information has been verbally conveyed by Oleg Benson DO to Marija Saenz on 08/01/2017 11:39:15 (ET). Chest X-Ray 08/01/17 11:05 IMPRESSION: No evidence of acute cardiopulmonary process. Head CTA 08/01/17 11:55 IMPRESSION: 1. No evidence of significant steno-occlusive disease or aneurysm. No evidence of definitive enhancing mass within the left posterior parietal hypodensity with differential including previous infarct, recent infarct and underlying edema. Definitive characterization may be obtained with MRI evaluation versus previous comparative imaging and clinical correlation. Neck CTA 08/01/17 11:55 IMPRESSION: 1. No evidence of significant steno-occlusive disease or aneurysm. No evidence of definitive enhancing mass within the left posterior parietal hypodensity with differential including previous infarct, recent infarct and underlying edema. Definitive characterization may be obtained with MRI evaluation versus previous comparative imaging and clinical correlation. Code Visit Inpatient E&M: 19961 Init Hosp L3
[2017-08-01 14:43] LABS: CPK Total, Creatine Kinase 55 U/L (39-308)
[2017-08-01 14:48] LABS: AST(SGOT) 17 U/L (15-37); Alanine Aminotransfer ALT/SGPT 23 U/L (16-61); Albumin, Serum 3.3 g/dL (3.2-5.0); Alkaline Phosphatase 71 U/L (45-117); Bilirubin, Direct 0.11 mg/dL (0.00-0.30); Globulin 4.8 g/dL (2.2-4.2); Protein, Total 8.1 g/dL (6.4-8.2); Thyroid Stim Hormone (TSH) 3.67 uIU/mL (0.358-3.74)
[2017-08-01] MEDS: Clopidogrel Bisulfate 75 MG Tablet PO (15:01)
[2017-08-01] MEDS: Aspirin 325 MG Tablet PO (15:01)
[2017-08-01] MEDS: 0.9% Normal Saline 1,000 ML 100 ML IV (15:01)
--- NOTE | 2017-08-01 15:06 | EKG12_ITS ---
Test Reason : Blood Pressure : / mmHG Vent. Rate : 064 BPM Atrial Rate : 064 BPM P-R Int : 172 ms QRS Dur : 138 ms QT Int : 458 ms P-R-T Axes : 022 -64 115 degrees QTc Int : 472 ms Normal sinus rhythm with sinus arrhythmia Right bundle branch block Left anterior fascicular block Bifascicular block T wave abnormality, consider lateral ischemia Abnormal ECG Confirmed by ERICKA WILLETT, EDER ([id number]), editor department JESSIKA BUSTILLO ([id number]) on 08/05/2017 1:14:07 PM Referred By: REESE Confirmed By:EDER BARNETT MD
[2017-08-01 17:06] LABS: Bedside Glucose 183 mg/dL (70-110)
[2017-08-01] MEDS: Metoprolol Tartrate 25 MG Tablet 12.5 MG PO (22:01)
[2017-08-01] MEDS: Famotidine 20 MG Tablet PO (22:02)
[2017-08-01 22:16] LABS: Bedside Glucose 125 mg/dL (70-110)
[2017-08-02] VITALS (8 sets, daily range): BP systolic 123–147; BP diastolic 65–78; PULSE 61–78; RESP 16–18; TEMP 36.6–36.8; O2SAT 92–96; BMI 30.3
[2017-08-02] MEDS: 0.9% Normal Saline 1,000 ML 100 ML IV (00:55)
[2017-08-02 06:40] LABS: Anion Gap 9 (5-15); BUN 18 mg/dL (7-18); BUN/Creat Ratio 17.3 RATIO (10-20); Calcium,Total 8.8 mg/dL (8.5-10.1); Chloride 107 mmol/L (98-107); Cholesterol 131 mg/dL (200); Creatinine, Serum 1.04 mg/dL (0.70-1.30); EST Glomerular Filtration Rate 76 mL/min (>60); Est Glom Filt Rate - Afr Amer 92 mL/min (>60); Estimated Creatinine Clearance 78.96 ml/min; Glucose 90 mg/dL (74-106); High Density Lipoprotein 41 mg/dL; Potassium 4.1 mmol/L (3.5-5.1); Sodium Level 143 mmol/L (136-145); Triglycerides 134 mg/dL; Very Low Density Lipoprotein 27 mg/dL (5-40)
[2017-08-02] MEDS: Levothyroxine 125 MCG Tablet PO (06:58)
--- NOTE | 2017-08-02 06:58 | MRI_ITS ---
STUDY: MRI BRAIN WITHOUT CONTRAST REASON FOR EXAM: Male, 66 years old. numbness/tingling; lightheaded,dizzy, difficulty reading; f/u to abnormal ct. TECHNIQUE: Standardized multiplanar fat and water weighted pulse sequences were obtained. COMPARISON: 08/01/2017 CT of the head FINDINGS: There is mild cerebral atrophy with widening of the extra-axial spaces and ventricular dilatation. There are a limited number of small white matter hyperintensities, distributed throughout the deep white matter tracts of the cerebral hemispheres, consistent with mild chronic white matter ischemic changes. There is restricted diffusion involving posterior left temporal lobe with drop of signal on the ADC map, consistent with acute infarction. Normal bilateral basal ganglia. Normal thalami. There is no extra-axial fluid accumulation. Normal flow voids within the major intracranial circulation suggesting patency by spin echo criteria. Normal sella turcica, pituitary gland, infundibular stalk, optic chiasm and hypothalamus. Normal tectal plate and pineal gland. Normal midbrain, renita and medulla. Normal cerebellum. Normal basal cisterns. Normal bilateral temporal bones. Normal bilateral internal auditory canals. MRI/Brain without Contrast IMPRESSION: Acute left temporal infarct. Electronically Signed: Chika Jett MD at 9:47 EDT Tel , Service support ,
[2017-08-02 07:06] LABS: Bedside Glucose 104 mg/dL (70-110)
[2017-08-02 07:13] LABS: Hemoglobin A1c 8.8 % (4.2-6.3)
[2017-08-02] MEDS: Aspirin 81 MG TAB.CHEW PO (07:48)
[2017-08-02] MEDS: Acetaminophen 325 MG Tablet 650 MG PO (07:55)
--- NOTE | 2017-08-02 10:05 | PCM.CONS.GEN ---
Reason for Consult Date of Consultation: 08/02/17 Reason for Consultation: cva History of Present Illness: The patient is a 66 year old M who on wednesday afternoon, 3 days ago noted an event which he feels was similar to a low blood sugar event, described at weakness, which resolved after he ate some food, and this event resolved after a number of hours. now he notes he cant read. came to hospital yesterday am because of persistant difficulty reading which he felt would interfere with his work at the [employer]. history of cabg, dm, hypothyroid. quit tob 20yrs. diagnosed with jermain, not yet on cpap. experienced a concusion at work 07/03/17, no clear loss of consciousness. reports still not back to normal since this event, reports dizzy still. apparently the squad was called after his concussion and was hospitalized for 4 days at [facility], no procedures. takes asa daily since his cabg in january. per admit h&p:The patient is a 66 year old M with history significant of coronary artery disease status post three-vessel CABG in January 2017 came to ER with difficulty in reading since last Wednesday 2 days ago. Patient further said he gets an episode where he feels like tunnel vision, lightheadedness and headache that lasted for about 4 hours improves with eating. He also has difficulty in understanding the printed words although words looks fine with no distorted images. No problem in understanding spoken language/speech but he feels a little slow in his speech but no slurring or stuttering. No focal weakness or numbness or tingling. No loss of control of bladder or bowel function. Patient said he had TIA after 2 weeks of triple bypass surgery in February 2017 which recovered with no residual deficit Past Medical History Past Medical History (Chronic Problems): Chronic Problems (Last Updated 03/18/17 @ 10:35 by Jesús Hensley NP-C) Dizziness (Chronic) Essential (primary) hypertension (Chronic) Atherosclerosis of [place] coronary artery of [place] heart without angina pectoris (Chronic) CABG- THRASHER to LAD, reverse SVG to post lateral, reverse SVG to OM 01/21/2017 Hyperlipidemia (Chronic) Diabetes mellitus (Chronic) Thyroid disorder (Chronic) Allergies atorvastatin [From Lipitor] Adverse Reaction (Mild, Verified 08/01/17 10:03) mylgia lower leg pain lanolin Adverse Reaction (Unknown, Verified 08/01/17 10:03) Unknown Home Medications: Ambulatory Orders Medication Instructions Recorded Levothyroxine [Synthroid] 125 mcg PO DAILY 01/19/17 Multivitamin with Iron 1 ea PO DAILY 01/19/17 [Multivitamins with Iron] aspirin 81 mg tablet,delayed 81 mg PO QDAY 03/18/17 release insulin lispro protamine-lispro 25 unit SC BID ml 03/19/17 100 unit/mL (75-25) subcutaneous pen metformin 500 mg tablet 500 mg PO BID 03/19/17 metoprolol tartrate 25 mg tablet 12.5 mg PO BID #90 tab 06/24/17 losartan 25 mg tablet 25 mg PO QDAY 06/28/17 Surgical History: no surgical history Smoking Status: Former smoker - *Family History Sibling History Items: Heart Disease - [place] Maternal History Items: No pertinent history Paternal History Items: No pertinent history Review of Systems Constitutional: Denies: Chills, Fever, Weight Change HEENT: Denies: Head Aches, Sinus Congestion, Sinus Drainage Cardiovascular: Denies: Chest Pain, Palpitations Respiratory: Denies: Cough, Shortness of breath at rest, Sputum production Gastrointestinal: Denies: Abdominal Pain, Nausea, Vomiting Genitourinary: Denies: Dysuria Musculoskeletal: Denies: Joint Pain, Joint Tenderness Skin: Denies: Rash, Wounds Neurological: Denies: Numbness, Tingling, Focal weakness Psychiatric: Denies: Anxiety, Depression, Homicidal Ideations, Suicidal Ideations Hematologic/ Lymphatic: Denies: Easy Bruising, Easy Bleeding Patient Problems: Active and Suspected Problems (Last Updated 03/18/17 @ 10:35 by Jesús Hensley SUPERVISOR UNLOADING-C) Ischemic stroke (Acute) - Physical Exam General: Alert, Oriented x3, Cooperative HEENT: Atraumatic, PERRLA, EOMI, Normocephalic Neck: Supple, No JVD, Negative Carotid Bruits Lungs: Clear to auscultation, Normal air movement Cardiovascular: Regular rate, No murmurs Abdomen: Bowel Sounds Present, Soft, Non Tender Extremities: No edema, Capillary Refill Less than 3 Seconds Skin: No rashes, No breakdown Musculoskeletal: No Tenderness to Palpation of Joints or Extremities Neurological: Cranial nerves II-XII grossly intact Psych/Mental Status: Normal Affect, Appropriate Vital Signs Temp Pulse Resp BP Pulse Ox 36.6 C 73 18 147/78 H 96 05/14/18 07:00 08/02/17 07:00 08/02/17 07:00 08/02/17 07:00 08/02/17 07:00 Oxygen Delivery Method Room Air Weight: 104.372 kg Body Mass Index (BMI) 30.3 Intake and Output for Last 24 Hours 07/31/17 08/01/17 08/02/17 23:59 23:59 23:59 Intake Total 1050 / 1050 852 / 852 Balance 1050 / 1050 852 / 852 Laboratory Tests Past 24 Hrs 08/01/17 08/01/17 08/02/17 14:45 17:20 05:40 Sodium 143 Potassium 4.1 Chloride 107 Carbon Dioxide 27.0 Anion Gap 9 BUN 18 Creatinine 1.04 Estim Creat Clear Calc 78.96 Est GFR (MDRD) Af Amer 92 Est GFR (MDRD) Non-Af 76 BUN/Creatinine Ratio 17.3 Glucose 90 Hemoglobin A1c Calcium 8.8 Troponin I 0.022 0.026 Triglycerides 134 Cholesterol 131 LDL Cholesterol 63 VLDL Cholesterol 27 HDL Cholesterol 41 08/02/17 05:40 Sodium Potassium Chloride Carbon Dioxide Anion Gap BUN Creatinine Estim Creat Clear Calc Est GFR (MDRD) Af Amer Est GFR (MDRD) Non-Af BUN/Creatinine Ratio Glucose Hemoglobin A1c 8.8 H Calcium Troponin I Triglycerides Cholesterol LDL Cholesterol VLDL Cholesterol HDL Cholesterol POC Glucose 08/02/17 08/01/17 08/01/17 07:03 21:59 17:02 POC Glucose 104 125 H 183 H mri reviewed, acute posterior left mca infarct cta reviewed, no significant stenosis Assessment/Plan Active and Suspected Problems (Last Updated 03/18/17 @ 10:35 by Jesús Hensley, SUPERVISOR UNLOADING-C) Ischemic stroke (Acute) left mca distribution infarct leading to alexia without agraphia, improved change asa to plavix echo tele speech therapy needs cpap as outpt bp/bs control cant tolerate statins
[2017-08-02] MEDS: Losartan Potassium 25 MG Tablet PO (10:51)
[2017-08-02] MEDS: Clopidogrel Bisulfate 75 MG Tablet PO (10:51)
[2017-08-02] MEDS: Famotidine 20 MG Tablet PO (10:51)
[2017-08-02] MEDS: Metoprolol Tartrate 25 MG Tablet 12.5 MG PO (10:51)
[2017-08-02 11:31] LABS: Bedside Glucose 184 mg/dL (70-110)
--- NOTE | 2017-08-02 12:00 | DCINST_ITS ---
- Discharge Diagnoses Current Active Problems: Current Active and Chronic Problems (Last Updated 03/18/17 @ 10:35 by TANNER LightC) Ischemic stroke (Acute) Reason(s) for Visit for Discharge Instructions: Dyslexia You will use the following diet at home:: Calorie/Carbohydrate Controlled ( specify 1200, 1400, etc), Cardiac Your food should be the consistency of: Regular Your liquids should be the consistency of: Regular/Thin Discharge Activity: Return to Normal Activity Allergies/Adverse Reactions: Allergies atorvastatin [From Lipitor] Adverse Reaction (Mild, Verified 08/01/17 10:03) mylgia lower leg pain lanolin Adverse Reaction (Unknown, Verified 08/01/17 10:03) Unknown Medications to take at Discharge Levothyroxine [Synthroid] 125 mcg PO DAILY 01/19/17 Multivitamin with Iron [Multivitamins with Iron] 1 ea PO DAILY 01/19/17 metformin 500 mg tablet 500 mg PO BID 03/19/17 metoprolol tartrate 25 mg tablet 12.5 mg PO BID #90 tab 06/24/17 losartan 25 mg tablet 25 mg PO QDAY 06/28/17 Clopidogrel Bisulfate [Plavix] 75 mg PO DAILY #30 tab 08/02/17 Insulin Lispro Protamin/Lispro [Humalog Mix 75-25 Kwikpen] 30 unit SC BID #0 ml 08/02/17 The following prescriptions were given: Clopidogrel Bisulfate [Plavix] 75 mg PO DAILY #30 tab Primary Care Physician: Ellis Fox MD [Primary Care Provider] - Please follow up with your Primary Care Physician in: within 2 weeks Please Follow Up With: Nacho Glass MD When: within 2 weeks Proposed Discharge Date: 08/02/17
--- NOTE | 2017-08-02 12:02 | PCM.DC.SUM ---
Discharge Date and Diagnosis Date of Admission: 08/01/17 Date of Discharge: 08/03/17 - Primary Discharge Diagnosis Active and Suspected Problems (Last Updated 03/18/17 @ 10:35 by SUKI Light) Ischemic stroke (Acute) - Secondary Discharge Diagnosis Chronic Problems (Last Updated 03/18/17 @ 10:35 by SUKI Light) Dizziness (Chronic) Essential (primary) hypertension (Chronic) Atherosclerosis of [place] coronary artery of [place] heart without angina pectoris (Chronic) CABG- THRASHER to LAD, reverse SVG to post lateral, reverse SVG to OM 01/21/2017 Hyperlipidemia (Chronic) Diabetes mellitus (Chronic) Thyroid disorder (Chronic) Hospital Course and Treatment Imaging Results: 08/02/17 06:58 Brain without Contrast [MRI] Urgent Consultations 08/01/17 15:38 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 Glass Operations: None Procedures: None Summary of Care Provided: 66 year old M with history significant of coronary artery disease status post three-vessel CABG in January 2017, attention, type 2 DM admitted with difficulty in reading since last 2 days prior to admission. He also described a feeling of tunnel vision, lightheadedness and headache that lasted for about 4 hours and was improved with eating. He also has difficulty in understanding the printed words although words looks fine with no distorted images. No problem in understanding spoken language/speech but he feels a little slow in his speech but no slurring or stuttering. No focal weakness or numbness or tingling. No loss of control of bladder or bowel function. His initial CT scan of the brain showed left posterior parieto-occipital hypodensity most concerning for acute infarct,subcutaneous soft tissue injury. He was admitted to the telemetry bed with no events. 2D echo was done that showed no valvular lesions. HbA1c was 8.8. Patient's lipid profile showed total cholesterol 131, triglycerides 134, LDL 63, HDL 41. Patient is reported to be intolerant to statins. He was seen by neurology, recommend a switch from aspirin to Plavix. Patient will need an outpatient CPAP machine. He will also be followed up in the outpatient skilled speechlanguage intervention to further assess reading, language, and cognition if it persists. Discharge Diet: Low fat/ Low Cholesterol, 2000 mg Sodium Diet, Carb Control Diet Discharge Activity: Return to Normal Activity Home Medications: Medications to take at Discharge Levothyroxine [Synthroid] 125 mcg PO DAILY 01/19/17 Multivitamin with Iron [Multivitamins with Iron] 1 ea PO DAILY 01/19/17 metformin 500 mg tablet 500 mg PO BID 03/19/17 metoprolol tartrate 25 mg tablet 12.5 mg PO BID #90 tab 06/24/17 losartan 25 mg tablet 25 mg PO QDAY 06/28/17 Clopidogrel Bisulfate [Plavix] 75 mg PO DAILY #30 tab 08/02/17 Insulin Lispro Protamin/Lispro [Humalog Mix 75-25 Kwikpen] 30 unit SC BID #0 ml 08/02/17 Following Prescrptions Were Given to Patient: Clopidogrel Bisulfate [Plavix] 75 mg PO DAILY #30 tab Primary Care Physician: Ellis Fox MD [Primary Care Provider] - Please follow up with your Primary Care Physician in: within 2 weeks Please Follow Up With: Nacho Glass MD When: within 2 weeks Disposition: Home Minutes spent on discharge:: 40 Patient Condition:: Stable Medical Necessity - Tobacco Use Smoking Status: Former smoker Meaningful Use Info Meaningful Use Diagnoses (Choose all that apply): Ischemic CVA - CVA Therapy Assessed for PT,OT and/or ST?: Yes - Ischemic Stroke Antithrombotic order at d/c?: No Reason antithrombotic not ordered: Treatment not Indicated Dx of Atrial fib/flutter?: No Anticoagulant at discharge?: No Reason anticoagulant not ordered: Treatment not Indicated Statins at discharge?: No Reason Statin not ordered: Drug Intolerance Primary Dx Acute Ischemic CVA?: Yes IV tPA ordered during stay?: No Reason IV t-PA not ordered: Treatment not Indicated Code Visit Inpatient E&M: 27115 Disch Hosp
--- NOTE | 2017-08-02 13:03 | CASEMGMT ---
Face to Face with patient for initial transition planning/care coordination assessment. KATIE HERNÁNDEZ introduced self and role at [facility], pt voices understanding and consents to assessment at this time. Pt is sitting up in chair in no distress at this time. Pt is A/O x4 at this time and answers all questions appropriately at this time. Care providers, pharmacy, and demographics verified. See attached link. Pt voices no further concerns/needs at this time. Advised pt to ask for CM if any further questions/concerns/needs arise, voices understanding. Order faxed to [email or web address] for outpt speech therapy at this time. PLAN: [place] KATIE HERNÁNDEZ
[2017-08-02 14:26] LABS: Bedside Glucose 164 mg/dL (70-110)
== END 2017-08-02 16:06 | disposition home or self-care (01) | DRG 65 ==
LOC: ED 13:43 → PCU 14:11
PROVIDERS: Admitting Provider Internal Medicine; Emergency Provider Emergency Medicine; Family Provider Family Medicine; PCP Family Medicine; Visit Provider Internal Medicine
DX: I63.512 Cerebral infarction due to unspecified occlusion or stenosis of left middle cerebral artery (principal); I45.2 Bifascicular block; I10 Essential (primary) hypertension; I25.10 Atherosclerotic heart disease of native coronary artery without angina pectoris; E78.5 Hyperlipidemia, unspecified; E11.9 Type 2 diabetes mellitus without complications; Z95.1 Presence of aortocoronary bypass graft; Z87.891 Personal history of nicotine dependence; E07.9 Disorder of thyroid, unspecified; R42 Dizziness and giddiness; Z79.4 Long term (current) use of insulin
CPT/HCPCS: 36415; 70450; 70496; 70498; 70551; 71045; 80048; 80061; 80076; 82550; 82962; 83036; 84443; 84484; 85025; 85610; 85730; 92523; 93005; 93306; 97162; 97165; 97802; 99285; J7030; Q9967; A4216

== ENCOUNTER 2017-08-09 14:02 | Outpatient (RCR) | payer OTHER, SELFPAY ==
--- NOTE | 2017-08-09 18:08 | HP.SP.AD ---
History - History Date of Eval: 08/09/17 Medical Diagnosis (from RX): ischemic stroke Date of Onset of Diagnosis: 08/01/17 Previous speech therapy: Yes Results: Pt had ST evaluations at [facility] by ANESTHESIOLOGY PHYSICIAN ASSISTANT Sergio. Pt had difficulty reading which is still chief complaint. Other Relevant Medical History/Diagnoses/Surgery: PMHx: concussion, stroke, CABG, HTN, dizziness, DMII. Pt is a 66 yr old male who was admitted to [facility] d/t difficulty in reading, symptoms like dyslexia. Symptoms began two day prior to admission. Pt c/o tunnel vision, lightheadedness, and headaches that could last for 4 hours. Symptoms would improve with meals. Pt had difficulty with understanding printed words, but words were not distorted. CT scan showed left posterior parieto-occipital hypodensity with acute infarct, subcutaneous soft tissue injury. Prior to CVA, pt had concussion which has resulted in dizziness and lightheadedness, CABG in fall of 2016, and possible TIA after surgery. 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 [employer] Right Hearing Abillity: Normal Left Hearing Abillity: Normal Visual Assistive Devices: Glasses Patients Living Arrangements: With Significant Other Patient Allergies - Allergies Allergies atorvastatin [From Lipitor] Adverse Reaction (Mild, Verified 08/01/17 10:03) mylgia lower leg pain lanolin Adverse Reaction (Unknown, Verified 08/01/17 10:03) Unknown CRIS - CRIS CRIS Administered: Yes CRIS: The Assessment of Language-Related Functional Activities (CRIS) consists of ten subtests, each of which assesses a different functional activity that are critical for safe independent functioning in the home environment. Each subtest requires the use of all language modalities as well as cognitive and motor skills. Each subtest also allows observance of multiple cognitive porcesses, which can help eliminate administering specialized tests in certain areas. Independent Functioning Ratings are identified to determine safe independent functioning in the home environment for two distinct age groups: (1) individuals < 65 years of age, and (2) individuals ages 65 years of age and up. Independent Functioning Rating (IFR) are reported as followed; 1= high probablility of independent functioning, 2= indication of need for some level of assistance on the task, requiring further exploration, 3= high probability that this individual is not able to function independently on this task. The results of the CRIS are as followed: Date: 08/09/17 - Telling Time Percent: 100 IFR: 1; pt had no difficulty with reading time - Addressing an Envelope Percent: 100 IFR: 1; pt addressed envelope without difficulty - Solving Daily Math Problems Percent: 90 IFR: 1; pt missed one problem as pt read hour as minute - Writing a Check & Balancing a Checkbook Percent: 80 IFR: 1; pt wrote incorrect amount on check both numerically and written out - Understanding Medicine Labels Percent: 90 IFR: 1; pt read time of day as AM instead of PM. - CRIS Comments Need for continued assessment Pt is able to read information in a choppy format and not fluid. 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 Pt needs to be able to identify addresses correctly in order to properly sort mail. Continued assessment is needed in order to accurately track reading improvement and accuracy for answering written questions. Plan - Plan Plan: Pt needs to be able to read fluently and accurately in order to return to work at the [employer]. - Frequency Frequency: 1x/Week Duration: 4 Weeks - Prognosis Prognosis: Good - Goal #1-5 Goal #1: Pt will read a paragraph aloud accurately and answer written questions with 90% accuracy in 3 consecutive sessions. Goal #2: Pt will read 200-250 wpm in a time span of no more than 2 minutes with 90% accuracy in 3 consecutive sessions. Education - Patient has Indicated that the Following Other Educational Needs: reading fluently - Patient Instruction Patient Education: Diagnosis, Treatment Plan, Goals Person Taught: Patient, Significant Other Teaching Method: Discussion Response to teaching: Teaching Completed
--- NOTE | 2017-10-27 11:11 | HP.SP.DC_ITS ---
ST Discharge Summary - Discharged: Discharge: Juan Diego Roldan is discharged from [facility] as of October 27, 2017. He has requested discharge as he stated that his reading skills are returning and he no longer wishes to attend therapy. Insurance complications have delayed therapy until this point and no thearpy visits were completed. A copy of this discharge summary will be sent to his referring physician. Thank you for this referral.
== END 2017-08-09 19:00 | disposition home or self-care (01) ==
LOC: SP 14:02
PROVIDERS: Family Provider Family Medicine; PCP Family Medicine; Visit Provider Internal Medicine
DX: Z86.73 Personal history of transient ischemic attack (TIA), and cerebral infarction without residual deficits (principal); F81.0 Specific reading disorder
CPT/HCPCS: 92523

== ENCOUNTER 2017-10-06 08:37 | Outpatient (RCR) | payer OTHER, SELFPAY ==
[2017-10-06 09:06] VITALS: BP 119/69; PULSE 99; RESP 18; TEMP 36.4
--- NOTE | 2017-10-06 16:36 | PCM.WC.HP ---
(1) Open wound of scalp Status: Chronic Current Visit: Yes Code(s): S01.00XA - Unspecified open wound of scalp, initial encounter (2) Diabetes mellitus Status: Chronic Current Visit: Yes Qualifiers: Code(s): E11.9 - Type 2 diabetes mellitus without complications History of Present Illness Date of Service: 10/06/17 Chief Complaint: Posterior Scalp Wound. History of Wound: Mr Roldan is a 67yo who was referred her by [facility] due to non healing traumatic scalp wound. Sustained wound after he fell at work hitting the back of his head. He has had care as stated above at [facility] including 2 corses of Abx. He was however referred here due to non healing. Initial injury was in June 2017. He feels well otherwise and denies chills, fever, headache, nausea or vomitting. Past Medical History Past Medical History: Chronic Problems (Last Updated 03/18/17 @ 10:35 by Jesús Hensley, SVP [employer]) Open wound of scalp (Chronic) Dizziness (Chronic) Essential (primary) hypertension (Chronic) Atherosclerosis of [place] coronary artery of [place] heart without angina pectoris (Chronic) CABG- THRASHER to LAD, reverse SVG to post lateral, reverse SVG to OM 01/21/2017 Hyperlipidemia (Chronic) Diabetes mellitus (Chronic) Thyroid disorder (Chronic) Surgical History: no surgical history Allergies/Adverse Reactions: Allergies atorvastatin [From Lipitor] Adverse Reaction (Mild, Verified 08/01/17 10:03) mylgia lower leg pain lanolin Adverse Reaction (Unknown, Verified 08/01/17 10:03) Unknown Home Medications: Ambulatory Orders Medication Instructions Recorded Levothyroxine [Synthroid] 125 mcg PO DAILY 01/19/17 Multivitamin with Iron 1 ea PO DAILY 01/19/17 [Multivitamins with Iron] metformin 500 mg tablet 500 mg PO BID 03/19/17 metoprolol tartrate 25 mg tablet 12.5 mg PO BID #90 tab 06/24/17 losartan 25 mg tablet 25 mg PO QDAY 06/28/17 Clopidogrel Bisulfate [Plavix] 75 mg PO DAILY #30 tab 08/02/17 Insulin Human 75/25 [Humalog Mix 28 unit SC BID 10/06/17 75-25 Kwikpen] - Family History Sibling Family History: Family History (Last Reviewed 06/28/17 @ 09:08 by Stephany Lugo) Sister CAD (coronary artery disease) Diabetes Brother CAD (coronary artery disease) Heart Disease - [place] Maternal Family History: Family History (Last Reviewed 06/28/17 @ 09:08 by Stephany Lugo) Sister CAD (coronary artery disease) Diabetes Brother CAD (coronary artery disease) No pertinent history Paternal Family History: Family History (Last Reviewed 06/28/17 @ 09:08 by Stephany Lugo) Sister CAD (coronary artery disease) Diabetes Brother CAD (coronary artery disease) No pertinent history Smoking Status: Former smoker Review of Systems Constitutional: Denies: Anorexia, Chills, Fever Eyes: Denies: Blurred vision, Pain HEENT: Denies: Difficulty Hearing, Difficulty Swallowing Cardiovascular: Denies: Chest Pain, Chest Tightness Respiratory: Denies: Cough, Hemoptysis Gastrointestinal: Denies: Abdominal Pain, Hematemesis, Vomiting Genitourinary: Denies: Incontinence Skin: Denies: Jaundice - Physical Exam Vital Signs Temp Pulse Resp BP 97.6 F L 99 18 119/69 10/06/17 09:06 10/06/17 09:06 10/06/17 09:06 10/06/17 09:06 General: Alert, Oriented x3, Cooperative, No apparent distress HEENT: Normocephalic Oral: Moist Mucosa Neck: Supple Lungs: Normal air movement Cardiovascular: Regular rate, Regular Rhythm Abdomen: Soft, Non Tender Extremities: No cyanosis Skin: Ulcer/ Wound Wound Measurements and Assessment WC - Nurse 1 - General Ulcer Measurement Start: 10/06/17 09:05 Freq: Status: Active Protocol: Activity Type Activity Date Activity User E-Sign Co-Sign Detail Recorded Client Recorded Date Recorded By Document 10/06/17 09:06 AL [id number] 10/06/17 09:23 MT Document 10/06/17 09:21 AL [id number] 10/06/17 09:23 MT 10/06/17 10/06/17 09:06 09:21 [Ulcer Assessment] #1 POSTERIOR HEAD -Combined with other wound No -Current Size (cm) - Length 1.3 -Current Size (cm) - Width 0.4 -Current Size (cm) - Depth 0.1 -Total Square Cm 0.52 -Date of Last Picture (Recall this 10/06/17 field) -Photo Taken Yes -Epithelialization None Present -Tunneling No -Undermining/Tunneling No -Circular Undermining No -Exudate Amt None Present (0 %) -Wound Margin Thickened -Granulation Amt None Present (0 %) -Granulation Quality N/A -Slough/Fibrin Yes -Necrosis Amt Large (67-100%) -Necrotic Tissue Type Eschar -Texture (Jill-wound Skin Appearance) No Abnormality Assessed -Moisture (Jill-wound Skin Appearance No Abnormality ) Assessed -Color (Jill-wound Skin Appearance) No Abnormality Assessed -Temperature (Jill-wound Skin No Abnormality Appearance) (Pt Warm) -Tenderness on Palpation (Jill-wound No Skin Appearance) -Ulcer Cleansing Rinsed/ Irrigated with Saline -Foul Odor after Cleansing No -Anesthetic Used 4% Lidocaine Solution Wound Center Nurse 1 [Edema Assessment] -Lower Limb Edema Present NA WC - Nurse 2 - General Ulcer CM Notes Start: 10/06/17 09:05 Freq: Status: Active Protocol: Activity Type Activity Date Activity User E-Sign Co-Sign Detail Recorded Client Recorded Date Recorded By Document 10/06/17 09:51 [id number] 10/06/17 09:52 10/06/17 09:51 Wound Center Nurse 2 [Procedure/Treatment] -Time 09:51 -Correct Patient Yes -Correct Side, Site, Position Yes -Correct Procedure Yes -Procedure Performed Yes -Type of Procedure Debridement -Clinical Debridement Subcutaneous -Post Debridement Size (cm) - Length 0.5 -Post Debridement Size (cm) - Width 0.5 -Post Debridement Size (cm) - Depth 0.1 -Total Square Cm 0.25 -Wound/Ulcer Outcome Not Healed -Ulcer Cleansing Rinsed/ Irrigated with Saline -Foul Odor after Cleansing No -Bioengineered Tissue No -Topical Lidocaine (%) 4 -Lidocaine (ml) 5 -Bleeding Controlled with NA -Treatment Response Procedure Tolerated Well [See Physician Procedure note for Specifics] Pain Scale: 0-10 Numeric [Pain] -Is Patient Pain Free? Yes Musculoskeletal: No Muscle Wasting Neurological: Cranial nerves II-XII grossly intact Psych/Mental Status: Normal Affect Debridement Note Post-Debridement Measurements/Treatment WC - Nurse 2 - General Ulcer CM Notes Start: 10/06/17 09:05 Freq: Status: Active Protocol: Activity Type Activity Date Activity User E-Sign Co-Sign Detail Recorded Client Recorded Date Recorded By Document 10/06/17 09:51 [id number] 10/06/17 09:52 10/06/17 09:51 Wound Center Nurse 2 #1 POSTERIOR HEAD -Time 09:51 -Correct Patient Yes -Correct Side, Site, Position Yes -Correct Procedure Yes -Procedure Performed Yes -Type of Procedure Debridement -Clinical Debridement Subcutaneous -Post Debridement Size (cm) - Length 0.5 -Post Debridement Size (cm) - Width 0.5 -Post Debridement Size (cm) - Depth 0.1 -Total Square Cm 0.25 -Wound/Ulcer Outcome Not Healed -Ulcer Cleansing Rinsed/ Irrigated with Saline -Foul Odor after Cleansing No -Bioengineered Tissue No -Topical Lidocaine (%) 4 -Lidocaine (ml) 5 -Bleeding Controlled with NA -Treatment Response Procedure Tolerated Well Pain Scale: 0-10 Numeric Is Patient Pain Free? Yes Wound debrided: Posterior scalp Wound Grade/Stage: Stage II Type of Debridement: Excisional debridement Anesthesia Used: 4% Lidocaine Solution Depth: Down to and including healthy tissue, in the subcutaneous layer Percentage of wound debrided: 100 Instrument Used: 3mm curette Tissue Removed: Slough and devitalized tissue Severity: Fat Layer Exposed Amount of bleeding with debridement: Mild Bleeding Controlled with: Pressure Patient tolerated procedure well Assessment/Plan Active Problems (Last Updated 03/18/17 @ 10:35 by Jesús Hensley, SVP [employer]) Open wound of scalp (Chronic) Diabetes mellitus (Chronic) Assessment: Non healing traumatic posterior scalp wound. Plan: Debridement done as documented above. Procedure was well tolerated. Tianna with adaptic over top. Change daily. Increased protein intake and optimal blood sugar control. Follow up in 2 weeks per patient request. His questions were answered and he was asked to call with any questions or concerns.
--- NOTE | 2017-10-06 16:45 | HP.PCM_ITS ---
(1) Open wound of scalp Status: Chronic Current Visit: Yes Code(s): S01.00XA - Unspecified open wound of scalp, initial encounter (2) Diabetes mellitus Status: Chronic Current Visit: Yes Qualifiers: Code(s): E11.9 - Type 2 diabetes mellitus without complications History of Present Illness Date of Service: 10/06/17 Chief Complaint: Posterior Scalp Wound. History of Wound: Mr Roldan is a 67yo who was referred her by [facility] due to non healing traumatic scalp wound. Sustained wound after he fell at work hitting the back of his head. He has had care as stated above at [facility] including 2 corses of Abx. He was however referred here due to non healing. Initial injury was in June 2017. He feels well otherwise and denies chills, fever, headache, nausea or vomitting. Past Medical History Past Medical History: Chronic Problems (Last Updated 03/18/17 @ 10:35 by Jesús Hensley, INVESTMENT PROFESSIONAL[employer]C) Open wound of scalp (Chronic) Dizziness (Chronic) Essential (primary) hypertension (Chronic) Atherosclerosis of [place] coronary artery of [place] heart without angina pectoris (Chronic) CABG- THRASHER to LAD, reverse SVG to post lateral, reverse SVG to OM 01/21/2017 Hyperlipidemia (Chronic) Diabetes mellitus (Chronic) Thyroid disorder (Chronic) Surgical History: no surgical history Allergies/Adverse Reactions: Allergies atorvastatin [From Lipitor] Adverse Reaction (Mild, Verified 08/01/17 10:03) mylgia lower leg pain lanolin Adverse Reaction (Unknown, Verified 08/01/17 10:03) Unknown Home Medications: Ambulatory Orders Medication Instructions Recorded Levothyroxine [Synthroid] 125 mcg PO DAILY 01/19/17 Multivitamin with Iron 1 ea PO DAILY 01/19/17 [Multivitamins with Iron] metformin 500 mg tablet 500 mg PO BID 03/19/17 metoprolol tartrate 25 mg tablet 12.5 mg PO BID #90 tab 06/24/17 losartan 25 mg tablet 25 mg PO QDAY 06/28/17 Clopidogrel Bisulfate [Plavix] 75 mg PO DAILY #30 tab 08/02/17 Insulin Human 75/25 [Humalog Mix 28 unit SC BID 10/06/17 75-25 Kwikpen] - Family History Sibling Family History: Family History (Last Reviewed 06/28/17 @ 09:08 by Stephany Lugo) Sister CAD (coronary artery disease) Diabetes Brother CAD (coronary artery disease) Heart Disease - [place] Maternal Family History: Family History (Last Reviewed 06/28/17 @ 09:08 by Stephany Lugo) Sister CAD (coronary artery disease) Diabetes Brother CAD (coronary artery disease) No pertinent history Paternal Family History: Family History (Last Reviewed 06/28/17 @ 09:08 by Stephany Lugo) Sister CAD (coronary artery disease) Diabetes Brother CAD (coronary artery disease) No pertinent history Smoking Status: Former smoker Review of Systems Constitutional: Denies: Anorexia, Chills, Fever Eyes: Denies: Blurred vision, Pain HEENT: Denies: Difficulty Hearing, Difficulty Swallowing Cardiovascular: Denies: Chest Pain, Chest Tightness Respiratory: Denies: Cough, Hemoptysis Gastrointestinal: Denies: Abdominal Pain, Hematemesis, Vomiting Genitourinary: Denies: Incontinence Skin: Denies: Jaundice - Physical Exam Vital Signs Temp Pulse Resp BP 97.6 F L 99 18 119/69 10/06/17 09:06 10/06/17 09:06 10/06/17 09:06 10/06/17 09:06 General: Alert, Oriented x3, Cooperative, No apparent distress HEENT: Normocephalic Oral: Moist Mucosa Neck: Supple Lungs: Normal air movement Cardiovascular: Regular rate, Regular Rhythm Abdomen: Soft, Non Tender Extremities: No cyanosis Skin: Ulcer/ Wound Wound Measurements and Assessment WC - Nurse 1 - General Ulcer Measurement Start: 10/06/17 09:05 Freq: Status: Active Protocol: Activity Type Activity Date Activity User E-Sign Co-Sign Detail Recorded Client Recorded Date Recorded By Document 10/06/17 09:06 NE [id number] 10/06/17 09:23 MT Document 10/06/17 09:21 NE [id number] 10/06/17 09:23 MT 10/06/17 10/06/17 09:06 09:21 [Ulcer Assessment] #1 POSTERIOR HEAD -Combined with other wound No -Current Size (cm) - Length 1.3 -Current Size (cm) - Width 0.4 -Current Size (cm) - Depth 0.1 -Total Square Cm 0.52 -Date of Last Picture (Recall this 10/06/17 field) -Photo Taken Yes -Epithelialization None Present -Tunneling No -Undermining/Tunneling No -Circular Undermining No -Exudate Amt None Present (0 %) -Wound Margin Thickened -Granulation Amt None Present (0 %) -Granulation Quality N/A -Slough/Fibrin Yes -Necrosis Amt Large (67-100%) -Necrotic Tissue Type Eschar -Texture (Jill-wound Skin Appearance) No Abnormality Assessed -Moisture (Jill-wound Skin Appearance No Abnormality ) Assessed -Color (Jill-wound Skin Appearance) No Abnormality Assessed -Temperature (Jill-wound Skin No Abnormality Appearance) (Pt Warm) -Tenderness on Palpation (Jill-wound No Skin Appearance) -Ulcer Cleansing Rinsed/ Irrigated with Saline -Foul Odor after Cleansing No -Anesthetic Used 4% Lidocaine Solution Wound Center Nurse 1 [Edema Assessment] -Lower Limb Edema Present NA WC - Nurse 2 - General Ulcer CM Notes Start: 10/06/17 09:05 Freq: Status: Active Protocol: Activity Type Activity Date Activity User E-Sign Co-Sign Detail Recorded Client Recorded Date Recorded By Document 10/06/17 09:51 [id number] 10/06/17 09:52 10/06/17 09:51 Wound Center Nurse 2 [Procedure/Treatment] -Time 09:51 -Correct Patient Yes -Correct Side, Site, Position Yes -Correct Procedure Yes -Procedure Performed Yes -Type of Procedure Debridement -Clinical Debridement Subcutaneous -Post Debridement Size (cm) - Length 0.5 -Post Debridement Size (cm) - Width 0.5 -Post Debridement Size (cm) - Depth 0.1 -Total Square Cm 0.25 -Wound/Ulcer Outcome Not Healed -Ulcer Cleansing Rinsed/ Irrigated with Saline -Foul Odor after Cleansing No -Bioengineered Tissue No -Topical Lidocaine (%) 4 -Lidocaine (ml) 5 -Bleeding Controlled with NA -Treatment Response Procedure Tolerated Well [See Physician Procedure note for Specifics] Pain Scale: 0-10 Numeric [Pain] -Is Patient Pain Free? Yes Musculoskeletal: No Muscle Wasting Neurological: Cranial nerves II-XII grossly intact Psych/Mental Status: Normal Affect Debridement Note Post-Debridement Measurements/Treatment WC - Nurse 2 - General Ulcer CM Notes Start: 10/06/17 09:05 Freq: Status: Active Protocol: Activity Type Activity Date Activity User E-Sign Co-Sign Detail Recorded Client Recorded Date Recorded By Document 10/06/17 09:51 [id number] 10/06/17 09:52 10/06/17 09:51 Wound Center Nurse 2 #1 POSTERIOR HEAD -Time 09:51 -Correct Patient Yes -Correct Side, Site, Position Yes -Correct Procedure Yes -Procedure Performed Yes -Type of Procedure Debridement -Clinical Debridement Subcutaneous -Post Debridement Size (cm) - Length 0.5 -Post Debridement Size (cm) - Width 0.5 -Post Debridement Size (cm) - Depth 0.1 -Total Square Cm 0.25 -Wound/Ulcer Outcome Not Healed -Ulcer Cleansing Rinsed/ Irrigated with Saline -Foul Odor after Cleansing No -Bioengineered Tissue No -Topical Lidocaine (%) 4 -Lidocaine (ml) 5 -Bleeding Controlled with NA -Treatment Response Procedure Tolerated Well Pain Scale: 0-10 Numeric Is Patient Pain Free? Yes Wound debrided: Posterior scalp Wound Grade/Stage: Stage II Type of Debridement: Excisional debridement Anesthesia Used: 4% Lidocaine Solution Depth: Down to and including healthy tissue, in the subcutaneous layer Percentage of wound debrided: 100 Instrument Used: 3mm curette Tissue Removed: Slough and devitalized tissue Severity: Fat Layer Exposed Amount of bleeding with debridement: Mild Bleeding Controlled with: Pressure Patient tolerated procedure well Assessment/Plan Active Problems (Last Updated 03/18/17 @ 10:35 by Jesús Hensley, INVESTMENT PROFESSIONAL-C) Open wound of scalp (Chronic) Diabetes mellitus (Chronic) Assessment: Non healing traumatic posterior scalp wound. Plan: Debridement done as documented above. Procedure was well tolerated. Tianna with adaptic over top. Change daily. Increased protein intake and optimal blood sugar control. Follow up in 2 weeks per patient request. His questions were answered and he was asked to call with any questions or concerns.
== END 2017-10-19 23:59 ==
LOC: WC 08:37
PROVIDERS: Family Provider Family Medicine; PCP Family Medicine; Visit Provider Internal Medicine
DX: S01.03XA Puncture wound without foreign body of scalp, initial encounter (principal); W19.XXXA Unspecified fall, initial encounter; Y93.9 Activity, unspecified; Y92.89 Other specified places as the place of occurrence of the external cause; Y99.0 Civilian activity done for income or pay; E11.9 Type 2 diabetes mellitus without complications; I25.10 Atherosclerotic heart disease of native coronary artery without angina pectoris; E78.5 Hyperlipidemia, unspecified; Z95.1 Presence of aortocoronary bypass graft; E07.9 Disorder of thyroid, unspecified; I10 Essential (primary) hypertension; Z79.02 Long term (current) use of antithrombotics/antiplatelets; Z79.4 Long term (current) use of insulin; Z79.899 Other long term (current) drug therapy; Z87.891 Personal history of nicotine dependence
CPT/HCPCS: 11042; 99212; G0463

== ENCOUNTER 2017-10-20 08:48 | Outpatient (RCR) | payer OTHER, SELFPAY ==
[2017-10-20 01:28] VITALS: BP 119/69; PULSE 99; RESP 18; TEMP 36.4
[2017-10-20 09:27] VITALS: BP 120/62; PULSE 74; RESP 16; TEMP 36.2
--- NOTE | 2017-10-20 09:37 | PCM.WC.PN ---
(1) Diabetes mellitus Status: Chronic Current Visit: Yes Qualifiers: Code(s): E11.9 - Type 2 diabetes mellitus without complications (2) Open wound of scalp Status: Chronic Current Visit: Yes Code(s): S01.00XA - Unspecified open wound of scalp, initial encounter Type of Wound Date of Service: 10/20/17 Chief Complaint: Posterior Scalp Wound. History of Wound: Mr Roldan is a 67yo who was referred her by [facility] due to non healing traumatic scalp wound. Sustained wound after he fell at work hitting the back of his head. He has had care as stated above at [facility] including 2 corses of Abx. He was however referred here due to non healing. Initial injury was in June 2017. He feels well otherwise and denies chills, fever, headache, nausea or vomitting. Progress of Wound: Healed. - Physical Exam Vital Signs Temp Pulse Resp BP 97.1 F L 74 16 120/62 10/20/17 09:27 10/20/17 09:27 10/20/17 09:27 10/20/17 09:27 General: Alert, Oriented x3, Cooperative, No apparent distress HEENT: Atraumatic Oral: Moist Mucosa Neck: Supple Lungs: Normal air movement Cardiovascular: Regular rate Wound Measurements and Assessment WC - Nurse 1 - General Ulcer Measurement Start: 10/20/17 09:27 Freq: Status: Active Protocol: Activity Type Activity Date Activity User E-Sign Co-Sign Detail Recorded Client Recorded Date Recorded By Document 10/20/17 09:27 MW [id number] 10/20/17 09:30 MW 10/20/17 09:27 Wound Center Nurse 1 [Ulcer Assessment] #1 POSTERIOR HEAD -Combined with other wound No -Current Size (cm) - Length 0.1 -Current Size (cm) - Width 0.1 -Current Size (cm) - Depth 0.1 -Total Square Cm 0.01 -Photo Taken Yes -Epithelialization Large 67-100% -Tunneling No -Undermining/Tunneling No -Circular Undermining No -Exudate Amt None Present (0 %) -Granulation Amt None Present (0 %) -Granulation Quality N/A -Slough/Fibrin No -Necrosis Amt None Present (0 %) -Texture (Jill-wound Skin Appearance) No Abnormality -Moisture (Jill-wound Skin Appearance No Abnormality ) -Color (Jill-wound Skin Appearance) No Abnormality -Temperature (Jill-wound Skin No Abnormality Appearance) (Pt Warm) -Tenderness on Palpation (Jill-wound No Skin Appearance) -Ulcer Cleansing Rinsed/ Irrigated with Saline -Foul Odor after Cleansing No [Edema Assessment] -Lower Limb Edema Present No WC - Nurse 2 - General Ulcer CM Notes Start: 10/20/17 09:27 Freq: Status: Active Protocol: Activity Type Activity Date Activity User E-Sign Co-Sign Detail Recorded Client Recorded Date Recorded By Document 10/20/17 09:34 MW [id number] 10/20/17 09:37 MW 10/20/17 09:34 Wound Center Nurse 2 [Procedure/Treatment] #1 POSTERIOR HEAD -Time 09:34 -Correct Patient Yes -Correct Side, Site, Position Yes -Correct Procedure Yes -Procedure Performed No -Post Debridement Size (cm) - Length 0 -Post Debridement Size (cm) - Width 0 -Post Debridement Size (cm) - Depth 0 -Total Square Cm 0 -Wound/Ulcer Outcome Healed- Epithelialized -Ulcer Cleansing Not Cleansed -Foul Odor after Cleansing No -Bleeding Controlled with NA -Treatment Response Procedure Tolerated Well [See Physician Procedure note for Specifics] Pain Scale: 0-10 Numeric [Pain] -Is Patient Pain Free? Yes Musculoskeletal: No Muscle Wasting Neurological: Cranial nerves II-XII grossly intact Psych/Mental Status: Normal Affect Debridement Note Post-Debridement Measurements/Treatment WC - Nurse 2 - General Ulcer CM Notes Start: 10/20/17 09:27 Freq: Status: Active Protocol: Activity Type Activity Date Activity User E-Sign Co-Sign Detail Recorded Client Recorded Date Recorded By Document 10/20/17 09:34 MW [id number] 10/20/17 09:37 MW 10/20/17 09:34 Wound Center Nurse 2 #1 POSTERIOR HEAD -Time 09:34 -Correct Patient Yes -Correct Side, Site, Position Yes -Correct Procedure Yes -Procedure Performed No -Post Debridement Size (cm) - Length 0 -Post Debridement Size (cm) - Width 0 -Post Debridement Size (cm) - Depth 0 -Total Square Cm 0 -Wound/Ulcer Outcome Healed- Epithelialized -Ulcer Cleansing Not Cleansed -Foul Odor after Cleansing No -Bleeding Controlled with NA -Treatment Response Procedure Tolerated Well Pain Scale: 0-10 Numeric Is Patient Pain Free? Yes No debridement was completed today Assessment/Plan Active Problems (Last Updated 03/18/17 @ 10:35 by Jesús Hensley [employer]IE[employer]-[facility]) Open wound of scalp (Chronic) Diabetes mellitus (Chronic) Assessment: Non healing traumatic posterior scalp wound. Plan: Wound is healed. Continue adaptic over top for 2 weeks. Increased protein intake and optimal blood sugar control. Discharged from the wound center. His questions were answered and he was asked to call with any questions or concerns.
== END 2017-11-19 23:59 ==
LOC: WC 08:48
PROVIDERS: Family Provider Family Medicine; PCP Family Medicine; Visit Provider Internal Medicine
DX: Z09 Encounter for follow-up examination after completed treatment for conditions other than malignant neoplasm (principal); E11.9 Type 2 diabetes mellitus without complications
CPT/HCPCS: 99213; G0463

== ENCOUNTER 2018-02-08 10:49 | Inpatient (IN) | payer OTHER, MEDICARE, SELFPAY ==
[2018-02-08] VITALS (15 sets, daily range): BP systolic 134–178; BP diastolic 78–85; PULSE 57–77; RESP 16–20; TEMP 36.4–36.7; O2SAT 93–96; BMI 31.6; BMI 31.7; BMI 31.2
--- NOTE | 2018-02-08 11:05 | ED.RN ---
PT STATES THAT HIS RT ARM NUMBNESS IS FROM THE ELBOW DOWN TO THE HAND ON AND OFF FOR A COUPLE OF DAYS. PT ALSO STATES THAT THE DIZZINESS IS AN ONGOING ISSUE, IT IS NOT SOMETHING THAT IS NEW. HE WANTS TO SEE IF SOMETHING CAN BE DONE ABOUT HIS RT ARM NUMBNESS.
--- NOTE | 2018-02-08 11:10 | EKG12_ITS ---
Test Reason : DIZZINESS Blood Pressure : / mmHG Vent. Rate : 065 BPM Atrial Rate : 065 BPM P-R Int : 212 ms QRS Dur : 144 ms QT Int : 464 ms P-R-T Axes : 038 -71 094 degrees QTc Int : 482 ms Sinus rhythm with 1st degree A-V block Right bundle branch block Left anterior fascicular block Bifascicular block Abnormal ECG Confirmed by FABIOLA WILLETT, EDWIN ([id number]), purchase request editor JESSIKA BUSTILLO ([id number]) on 02/11/2018 1:20:56 PM Referred By: Confirmed By:EDWIN HICKS MD
--- NOTE | 2018-02-08 11:10 | RAD_ITS ---
STUDY: X-RAY CHEST REASON FOR EXAM: Male, 67 years old. Dizziness. TECHNIQUE: Single AP portable view of the chest. COMPARISON: Comparison is made with prior study dated August 01, 2017. FINDINGS: EKG electrodes are seen. Stable mild degree of increased lung markings at the lung bases suggestive scarring. This is worse on the left side. Stable blunting of the left costophrenic angle. Sternal cerclage wires and vascular clips are present from a prior sternotomy and coronary artery bypass graft procedure (CABG). Normal mediastinum and nasrin. Normal visualized pulmonary arteries. There is atherosclerotic calcification of the aortic arch with tortuosity. There are degenerative changes of the visualized thoracic spine. Normal visualized ribs, clavicles, and shoulders. There is no demonstrated abnormality of the visualized soft tissue structures of the upper abdomen. RAD/Chest 1 View IMPRESSION: Stable increased markings at the lung bases slightly worse on the left side with blunting of the left costophrenic angle. Electronically Signed: Jesus Alberto Blair MD at 12:16 EST Tel [phone], Service support ,
--- NOTE | 2018-02-08 11:10 | CT_ITS ---
STUDY: CT BRAIN WITHOUT CONTRAST REASON FOR EXAM: Male, 67 years old. Dizziness. Right arm numbness. RADIATION DOSAGE (If Supplied By Facility): CTDIvol = ( 44.99 ) mGy, DLP = ( 812.98 ) mGycm TECHNIQUE: Transaxial CT imaging of the brain was performed without administration of intravenous contrast material. Individualized dose optimization techniques were used for this CT. COMPARISON: Comparison is made with prior study dated August 01, 2017. FINDINGS: Normal soft tissue structures. Normal calvarium. There is mild cerebral atrophy with widening of the extra-axial spaces and ventricular dilatation. There are areas of decreased attenuation within the white matter tracts of the supratentorial brain, consistent with microvascular disease changes. Stable focal area of Ancef malacia in the posterior left parietal occipital lobe. Normal basal ganglia and thalami. Normal brainstem. Normal cerebellum. There is no intracranial hemorrhage. There are no findings of an acute ischemic infarction. Atherosclerotic calcification of the vertebral arteries and cavernous portions of the internal carotid arteries bilaterally. Normal visualized paranasal sinuses. CT/Brain/Head without Contrast IMPRESSION: Chronic involutional changes of the brain. Electronically Signed: Jesus Alberto Blair MD at 12:17 EST Tel [phone], Service support ,
--- NOTE | 2018-02-08 11:12 | ED.VISSUMM ---
- ER Visit Summary Date of Service: 02/08/18 Chief Complaint: Dizziness History of Present Illness: The patient is a 67 M with history of intermittent dizziness after a major concussion who presents for an episode of dizziness today. Patient was getting a chest CT due to a persistent cough this morning. He felt well until he sat up from the CT table. He had sudden onset of dizziness which she describes as being in an earthquake. He has difficulty balancing but denies any sensation of presyncope. He is also complaining of right arm numbness since yesterday morning. He states when he woke up his right arm felt like it was asleep. This is mainly on the radial side and from the distal upper arm down. He has chronic sensation that his fingertips are asleep, but this right arm numbness is new. It improved during the day and recurred this morning when he woke up. It is improved some but is still present. He denies any other complaints at this time. Physical Examination: Vital signs: afebrile, hemodynamically stable, no hypoxia on room air General: well nourished, well developed, in no distress Skin: warm, dry, no rash, no pallor HEENT: normocephalic and atraumatic; PERRL, EOMI, no nystagmus, moist mucous membranes Cardiovascular: regular rate and rhythm without murmurs, no peripheral edema, 2+ pulses all distal extremities Respiratory: No increased work of breathing, lungs are clear to auscultation bilaterally, no rales, rhonchi or wheezing Abdominal: Abdomen is soft, nontender with normoactive bowel sounds, no guarding or rebound, no masses MSK: Moves all extremities, no deformities, normal strength Neuro: Awake and alert, oriented ?4. No facial droop, sensation and motor function intact and symmetric in all extremities. Patient able to walk unassisted. Normal cerebellar testing. Test Results: Abnormal Lab Results 02/08/18 02/08/18 02/08/18 11:23 11:25 11:25 WBC 6.2 RBC 5.13 Hgb 14.2 Hct 43.8 MCV 85.4 MCH 27.7 MCHC 32.4 RDW 15.5 H RDW Differential 48.0 H Plt Count 175 MPV 11.4 Immature Gran % (Auto) 0.600 Neut % (Auto) 64.3 Lymph % (Auto) 24.2 [place] % (Auto) 7.6 Eos % (Auto) 2.8 Baso % (Auto) 0.5 Absolute Neuts (auto) 4.0 Absolute Lymphs (auto) 1.49 Total Counted Not Reportable PT 12.8 INR 1.0 APTT 31.0 Sodium Potassium Chloride Carbon Dioxide Anion Gap BUN Creatinine Estim Creat Clear Calc Est GFR (MDRD) Af Amer Est GFR (MDRD) Non-Af BUN/Creatinine Ratio Glucose Calcium Magnesium Troponin I POC Glucose 220 H 02/08/18 02/08/18 11:25 15:25 WBC RBC Hgb Hct MCV MCH MCHC RDW RDW Differential Plt Count MPV Immature Gran % (Auto) Neut % (Auto) Lymph % (Auto) [place] % (Auto) Eos % (Auto) Baso % (Auto) Absolute Neuts (auto) Absolute Lymphs (auto) Total Counted PT INR APTT Sodium 139 Potassium 4.3 Chloride 105 Carbon Dioxide 28.0 Anion Gap 6 BUN 22 H Creatinine 1.16 Estim Creat Clear Calc 69.84 Est GFR (MDRD) Af Amer 81 Est GFR (MDRD) Non-Af 67 BUN/Creatinine Ratio 19.0 Glucose 211 H Calcium 8.6 Magnesium 1.8 Troponin I 0.233 H 0.271 H POC Glucose Clinical Impression(s) from Imaging Studies Brain CT 02/08/18 11:10 IMPRESSION: Chronic involutional changes of the brain. Electronically Signed: Jesus Alberto Blair MD at 12:17 EST Tel [phone], Service support , Chest X-Ray 02/08/18 11:10 IMPRESSION: Stable increased markings at the lung bases slightly worse on the left side with blunting of the left costophrenic angle. Electronically Signed: Jesus Alberto Blair MD at 12:16 EST Tel [phone], Service support , Head CTA 02/08/18 14:13 IMPRESSION: Normal [place] without a demonstrated aneurysm or hemodynamically significant stenosis. Electronically Signed: Jesus Alberto Blair MD at 15:16 EST Tel [phone], Service support , Neck CTA 02/08/18 14:13 IMPRESSION: Atherosclerotic plaque formation at the origin of the right and left internal carotid arteries with less than 50% luminal stenosis. Electronically Signed: Jesus Alberto Blair MD at 15:14 EST Tel [phone], Service support , Medications Given Aspirin (Aspirin) 325 mg PO X1 ONE Stop: 02/08/18 16:58 Discontinued Medications Sodium Chloride () 1,000 mls @ 999 mls/hr IV .Q1H1M ONE Stop: 02/08/18 12:10 Last Admin: 02/08/18 11:33 Dose: 999 mls/hr Meclizine HCl (Antivert) 25 mg PO X1 ONE Stop: 02/08/18 11:26 Last Admin: 02/08/18 11:32 Dose: 25 mg Emergency Department Course and Treatment: Patient presents for onset of disequilibrium when going from supine position to sitting position. Patient has a history of similar symptoms, but was concerned that the onset was so sudden. Patient has an NIH of 0. He is complaining of the right arm numbness, but there is no objective sensory deficit on exam.. Because of multiple neuro complaints, stroke workup was performed. Head CT showed no acute process. Labs were remarkable only for an elevated troponin of 0.233. EKG showed a right bundle branch block with first-degree AV block and no ischemic changes. This is similar to patient's prior EKGs. The elevated troponin was discussed with Dr. Veliz, who requested a 3-hour rule out, and if no significant change patient is cleared from cardiology standpoint to be discharged home. Repeat EKG was unchanged and the repeat troponin was not significantly changed. Patient was discussed with Dr. Yadav regarding the patient's history of both stroke and concussion and his symptoms today that are concerning for possible central origin versus exacerbation of his chronic residual symptoms from his concussion and his right shoulder injury. A CTA of the head and neck and an MRI of the brain was performed to evaluate for stroke. The CTA of the head and neck showed no significant vascular stenosis or abnormalities. The MRI brain did show a small left internal capsule acute infarct, likely related to patient's new right arm numbness. Patient was not a candidate for tPA, due to symptoms ongoing for >24 hours and NIH of 0. The MRI result was discussed with Dr. Glass, who requested patient be admitted for stroke workup. Patient had passed his swallow evaluation, administered by me, earlier in his ED course and was given a dose of aspirin. Patient's NIH remained 0 during ED course. Patient discussed with the hospitalist for admission for acute ischemic stroke and right arm numbness. Treatment Plan: [] Disposition: [] Impression: Acute ischemic stroke, acute left internal capsule infarct, right arm numbness, recurrent vertigo secondary to concussion This note was generated with [employer] dictation software. It may contain incorrect words, spelling, and punctuation that were not noted in review of the chart prior to signing ED Disposition - Plan for ED Patient: Disposition: Home or Assisted Living Chief Complaint: Dizziness Referrals: Ellis Fox MD [Primary Care Provider] -
--- NOTE | 2018-02-08 11:15 | ED.DCSUM_ITS ---
- ER Visit Summary Date of Service: 02/08/18 Chief Complaint: Dizziness History of Present Illness: The patient is a 67 M with history of intermittent dizziness after a major concussion who presents for an episode of dizziness today. Patient was getting a chest CT due to a persistent cough this morning. He felt well until he sat up from the CT table. He had sudden onset of dizziness which she describes as being in an earthquake. He has difficulty balancing but denies any sensation of presyncope. He is also complaining of right arm numbness since yesterday morning. He states when he woke up his right arm felt like it was asleep. This is mainly on the radial side and from the distal upper arm down. He has chronic sensation that his fingertips are asleep, but this right arm numbness is new. It improved during the day and recurred this morning when he woke up. It is improved some but is still present. He denies any other complaints at this time. Physical Examination: Vital signs: afebrile, hemodynamically stable, no hypoxia on room air General: well nourished, well developed, in no distress Skin: warm, dry, no rash, no pallor HEENT: normocephalic and atraumatic; PERRL, EOMI, no nystagmus, moist mucous membranes Cardiovascular: regular rate and rhythm without murmurs, no peripheral edema, 2+ pulses all distal extremities Respiratory: No increased work of breathing, lungs are clear to auscultation bilaterally, no rales, rhonchi or wheezing Abdominal: Abdomen is soft, nontender with normoactive bowel sounds, no guarding or rebound, no masses MSK: Moves all extremities, no deformities, normal strength Neuro: Awake and alert, oriented ?4. No facial droop, sensation and motor function intact and symmetric in all extremities. Patient able to walk unassisted. Normal cerebellar testing. Test Results: Abnormal Lab Results 02/08/18 02/08/18 02/08/18 11:23 11:25 11:25 WBC 6.2 RBC 5.13 Hgb 14.2 Hct 43.8 MCV 85.4 MCH 27.7 MCHC 32.4 RDW 15.5 H RDW Differential 48.0 H Plt Count 175 MPV 11.4 Immature Gran % (Auto) 0.600 Neut % (Auto) 64.3 Lymph % (Auto) 24.2 [place] % (Auto) 7.6 Eos % (Auto) 2.8 Baso % (Auto) 0.5 Absolute Neuts (auto) 4.0 Absolute Lymphs (auto) 1.49 Total Counted Not Reportable PT 12.8 INR 1.0 APTT 31.0 Sodium Potassium Chloride Carbon Dioxide Anion Gap BUN Creatinine Estim Creat Clear Calc Est GFR (MDRD) Af Amer Est GFR (MDRD) Non-Af BUN/Creatinine Ratio Glucose Calcium Magnesium Troponin I POC Glucose 220 H 02/08/18 02/08/18 11:25 15:25 WBC RBC Hgb Hct MCV MCH MCHC RDW RDW Differential Plt Count MPV Immature Gran % (Auto) Neut % (Auto) Lymph % (Auto) [place] % (Auto) Eos % (Auto) Baso % (Auto) Absolute Neuts (auto) Absolute Lymphs (auto) Total Counted PT INR APTT Sodium 139 Potassium 4.3 Chloride 105 Carbon Dioxide 28.0 Anion Gap 6 BUN 22 H Creatinine 1.16 Estim Creat Clear Calc 69.84 Est GFR (MDRD) Af Amer 81 Est GFR (MDRD) Non-Af 67 BUN/Creatinine Ratio 19.0 Glucose 211 H Calcium 8.6 Magnesium 1.8 Troponin I 0.233 H 0.271 H POC Glucose Clinical Impression(s) from Imaging Studies Brain CT 02/08/18 11:10 IMPRESSION: Chronic involutional changes of the brain. Electronically Signed: Jesus Alberto Blair MD at 12:17 EST Tel [phone], Service support , Chest X-Ray 02/08/18 11:10 IMPRESSION: Stable increased markings at the lung bases slightly worse on the left side with blunting of the left costophrenic angle. Electronically Signed: Jesus Alberto Blair MD at 12:16 EST Tel [phone], Service support , Head CTA 02/08/18 14:13 IMPRESSION: Normal [place] without a demonstrated aneurysm or hemodynamically significant stenosis. Electronically Signed: Jesus Alberto Blair MD at 15:16 EST Tel [phone], Service support , Neck CTA 02/08/18 14:13 IMPRESSION: Atherosclerotic plaque formation at the origin of the right and left internal carotid arteries with less than 50% luminal stenosis. Electronically Signed: Jesus Alberto Blair MD at 15:14 EST Tel [phone], Service support , Medications Given Aspirin (Aspirin) 325 mg PO X1 ONE Stop: 02/08/18 16:58 Discontinued Medications Sodium Chloride () 1,000 mls @ 999 mls/hr IV .Q1H1M ONE Stop: 02/08/18 12:10 Last Admin: 02/08/18 11:33 Dose: 999 mls/hr Meclizine HCl (Antivert) 25 mg PO X1 ONE Stop: 02/08/18 11:26 Last Admin: 02/08/18 11:32 Dose: 25 mg Emergency Department Course and Treatment: Patient presents for onset of disequilibrium when going from supine position to sitting position. Patient has a history of similar symptoms, but was concerned that the onset was so sudden. Patient has an NIH of 0. He is complaining of the right arm numbness, but there is no objective sensory deficit on exam.. Because of multiple neuro complaints, stroke workup was performed. Head CT showed no acute process. Labs were remarkable only for an elevated troponin of 0.233. EKG showed a right bundle branch block with first-degree AV block and no ischemic changes. This is similar to patient's prior EKGs. The elevated troponin was discussed with Dr. Veliz, who requested a 3-hour rule out, and if no significant change patient is cleared from cardiology standpoint to be discharged home. Repeat EKG was unchanged and the repeat troponin was not significantly changed. Patient was discussed with Dr. Yadav regarding the patient's history of both stroke and concussion and his symptoms today that are concerning for possible central origin versus exacerbation of his chronic residual symptoms from his concussion and his right shoulder injury. A CTA of the head and neck and an MRI of the brain was performed to evaluate for stroke. The CTA of the head and neck showed no significant vascular stenosis or abnormalities. The MRI brain did show a small left internal capsule acute infarct, likely related to patient's new right arm numbness. Patient was not a candidate for tPA, due to symptoms ongoing for >24 hours and NIH of 0. The MRI result was discussed with Dr. Glass, who requested patient be admitted for stroke workup. Patient had passed his swallow evaluation, administered by me, earlier in his ED course and was given a dose of aspirin. Patient's NIH remained 0 during ED course. Patient discussed with the hospitalist for admission for acute ischemic stroke and right arm numbness. Treatment Plan: [] Disposition: [] Impression: Acute ischemic stroke, acute left internal capsule infarct, right arm numbness, recurrent vertigo secondary to concussion This note was generated with [employer] dictation software. It may contain incorrect words, spelling, and punctuation that were not noted in review of the chart prior to signing ED Disposition - Plan for ED Patient: Disposition: Home or Assisted Living Chief Complaint: Dizziness Referrals: Ellis Fox MD [Primary Care Provider] -
[2018-02-08 11:26] LABS: Bedside Glucose 220 mg/dL (70-110)
[2018-02-08] MEDS: Meclizine HCl 25 MG Tablet PO (11:32)
[2018-02-08] MEDS: 0.9% Normal Saline 1,000 ML 999 ML IV (11:33)
[2018-02-08 11:44] LABS: Prothrombin Time (Protime)PT. 12.8 SECONDS (11.7-14.9)
[2018-02-08 11:45] LABS: Absolute Lymphocyte Count 1.49 X10^3/ul (0.83-4.51); Basophil# 0.03 X10^3/uL; Basophil% 0.5 % (0-1); Eosinophil# 0.17 X10^3/uL; Eosinophils% 2.8 % (0-5); Hematocrit 43.8 % (40-54); Hemoglobin 14.2 g/dl (13.0-16.5); Lymphocyte # 1.49 X10^3/ul (4.0); Lymphocyte % 24.2 % (19-41); Mean Corp Hgb Conc 32.4 g/gl (32-36); Mean Corpuscular Hgb 27.7 pg (27.0-32.0); Mean Corpuscular Volume 85.4 fL (80-94); Mean Platelet Vol. 11.4 fl (6.2-12.0); Monocyte# 0.47 X10^3/uL; Monocyte% 7.6 % (0-10); Neutrophil # 3.96 X10^3/uL (2.7-7.7); Neutrophil % 64.3 % (47-70); Platelet Count 175 K/mm3 (150-450); RBC Distribution Width CV 15.5 % (11.6-14.6); Red Blood Count 5.13 M/mm3 (4.6-6.2); White Blood Count 6.2 K/mm3 (4.4-11.0)
[2018-02-08 11:46] LABS: POSITIVE COUNT NO; POSITIVE DIFFERENTIAL NO; POSITIVE MORPHOLOGY NO
[2018-02-08 11:56] LABS: Anion Gap 6 (5-15); BUN 22 mg/dL (7-18); Calcium,Total 8.6 mg/dL (8.5-10.1); Chloride 105 mmol/L (98-107); Creatinine, Serum 1.16 mg/dL (0.70-1.30); EST Glomerular Filtration Rate 67 mL/min (>60); Est Glom Filt Rate - Afr Amer 81 mL/min (>60); Estimated Creatinine Clearance 69.84 ml/min; Glucose 211 mg/dL (74-106); Magnesium 1.8 mg/dL (1.6-2.6); Potassium 4.3 mmol/L (3.5-5.1); Sodium Level 139 mmol/L (136-145)
--- NOTE | 2018-02-08 14:12 | MRI_ITS ---
STUDY: MRI BRAIN WITHOUT CONTRAST REASON FOR EXAM: Male, 67 years old. Posttraumatic concussion and vertigo TECHNIQUE: Standardized multiplanar fat and water weighted pulse sequences were obtained. COMPARISON: August 02, 2017 FINDINGS: Mild atrophy and periventricular white matter ischemic changes.. There is an old lacunar infarct in the right posterior thalamus and restricted diffusion within the posterior horn of left internal capsule. There is no extra-axial fluid accumulation. There is gliosis in the left posterior temporal lobe consistent with old infarct which has decreased in size significantly since prior study Normal flow voids within the major intracranial circulation suggesting patency by spin echo criteria. Normal sella turcica, pituitary gland, infundibular stalk, optic chiasm and hypothalamus. Normal tectal plate and pineal gland. Normal midbrain, renita and medulla. Chronic ischemic changes within the right cerebellar hemisphere. Normal basal cisterns. Normal bilateral temporal bones. Normal bilateral internal auditory canals. No demonstrated orbital abnormality, within the constraints of a routine brain study. There is minor mucosal thickening within the ethmoid air cells. Normal calvarium and skull base. Normal visualized soft tissue structures. Normal visualized upper cervical spine. MRI/Brain without Contrast IMPRESSION: Small acute lacunar infarct in the left internal capsule Mild atrophy and periventricular white matter ischemic changes. Chronic ischemic changes right cerebellar hemisphere normal right posterior thalamic infarct. N.B. : The above information has been verbally conveyed by Ellis Barriga MD to HERNANDEZ Mckenzie, on 02/08/2018 17:32:42 (ET). Electronically Signed: Ellis Barriga MD at 16:17 EST , Service support ,
--- NOTE | 2018-02-08 14:13 | CT_ITS ---
STUDY: CTA NECK WITH CONTRAST REASON FOR EXAM: Male, 67 years old. Right arm numbness. Dizziness. History of lung cancer. RADIATION DOSAGE (If Supplied By Facility): CTDIvol = ( 28.86 ) mGy, DLP = ( 804.38 ) mGycm TECHNIQUE: CT angiography with multi-detector data acquisition was performed from the aortic arch to the skull base following intravenous administration of 100ml ml of Isovue 370 contrast. MIP images were reconstructed from the axial data set. Post-processing of the angiographic images was performed, with multiplanar reformation and 3D reconstruction. Individualized dose optimization techniques were used for this CT. COMPARISON: None. FINDINGS: AORTIC ARCH: There is atherosclerotic calcific plaque formation of the aortic arch and great vessels arising from the aortic arch, without a hemodynamically significant stenosis. There is a normal origin of the brachiocephalic, left common carotid, and left subclavian arteries. This evidence of prior midline sternotomy and coronary artery bypass surgery. RIGHT CAROTID ARTERIES: Normal right common carotid artery (CCA). Normal right common carotid bulb. There is mild atherosclerotic plaque formation of the origin of the right internal carotid artery with less than 50% cross sectional diameter stenosis. Normal visualized cervical portion of the right internal carotid artery. Normal origin of the right external carotid artery (ECA). LEFT CAROTID ARTERIES: Normal left common carotid artery (CCA). Normal left common carotid bulb. There is mild atherosclerotic plaque formation of the origin of the left internal carotid artery with less than 50% cross sectional diameter stenosis. Normal visualized cervical portion of the left internal carotid artery. Normal origin of the left external carotid artery (ECA). VERTEBRAL ARTERIES: There is enhancement within the bilateral vertebral arteries with a small right vertebral artery, and a dominant left vertebral artery. CT/CTA Neck W/WO Contrast IMPRESSION: Atherosclerotic plaque formation at the origin of the right and left internal carotid arteries with less than 50% luminal stenosis. Electronically Signed: Jesus Alberto Blair MD at 15:14 EST Tel [phone], Service support ,
--- NOTE | 2018-02-08 14:13 | CT_ITS ---
STUDY: CTA OF THE BRAIN REASON FOR EXAM: Male, 67 years old. Dizziness. Right arm numbness. RADIATION DOSAGE (If Supplied By Facility): CTDIvol = ( 28.86 ) mGy, DLP = ( 804.36 ) mGycm TECHNIQUE: CT angiography was performed with a multi-detector CT scanner. Data acquisition was obtained from the skull base through the vertex following intravenous administration of 100 ml of Isovue-370. MIP images were reconstructed from the axial data set. Post-processing of the angiographic images was performed, with multiplanar reformation and 3D reconstruction. Individualized dose optimization techniques were used for this CT. COMPARISON: None. FINDINGS: Normal bilateral petrous carotid arteries. There is calcified plaque formation of the right cavernous carotid artery, without a cross-sectional luminal stenosis. There is calcified plaque formation of the left cavernous carotid artery, without a cross-sectional luminal stenosis. Normal right A1 segments of the anterior cerebral artery. Normal left A1 segments of the anterior cerebral artery. Normal intact anterior communicating artery (ACOM). Normal bilateral A2 segments of the anterior cerebral arteries. Normal right M1 and M2 segments of the middle cerebral arteries, with a normal M1 bifurcation. Normal left M1 and M2 segments of the middle cerebral arteries, with a normal M1 bifurcation. Normal right posterior communicating artery (PCOM). Normal left posterior communicating artery (PCOM). Normal bilateral vertebral arteries. Normal basilar artery with a normal basilar bifurcation. The visualized bilateral superior cerebellar (SCA) arteries are normal. Normal bilateral P1, P2 and visualized P3 segments of the posterior cerebral arteries. There is no demonstrated aneurysm of the [place]. There is no demonstrated abnormality of the visualized brain. CT/CTA Head W/WO Contrast IMPRESSION: Normal [place] without a demonstrated aneurysm or hemodynamically significant stenosis. Electronically Signed: Jesus Alberto Blair MD at 15:16 EST Tel [phone], Service support ,
--- NOTE | 2018-02-08 14:25 | EKG12_ITS ---
Test Reason : REPEAT Blood Pressure : / mmHG Vent. Rate : 073 BPM Atrial Rate : 073 BPM P-R Int : 276 ms QRS Dur : 144 ms QT Int : 460 ms P-R-T Axes : 039 -64 081 degrees QTc Int : 506 ms Sinus rhythm with 1st degree A-V block Right bundle branch block Left anterior fascicular block Bifascicular block Abnormal ECG Confirmed by FABIOLA WILLETT, EDWIN ([id number]), food editor JESSIKA BUSTILLO ([id number]) on 02/11/2018 1:21:21 PM Referred By: JAIME Confirmed By:EDWIN HICKS MD
--- NOTE | 2018-02-08 16:51 | NURSING ---
DR ALLAN FOR DR SANDOVAL
--- NOTE | 2018-02-08 17:04 | NURSING ---
DR RADHA SANDOVAL
--- NOTE | 2018-02-08 17:09 | NURSING ---
Gissel GARCIA ACUTE ISCHEMIC STROKE, LEFT INTERNAL CAPSULE, RT ARM NUMBNESS, VERTIGO
[2018-02-08] MEDS: Aspirin 325 MG Tablet PO (17:21)
--- NOTE | 2018-02-08 17:30 | PCM.HP.STD ---
<Guido Delong - Last Filed: 02/08/18 17:59> Problem List (1) CVA (cerebral vascular accident) Status: Acute (2) Essential (primary) hypertension Status: Chronic (3) Hyperlipidemia Status: Chronic (4) Diabetes mellitus Status: Chronic (5) Thyroid disorder Status: Chronic History of Present Illness Date of Admission: 02/08/18 Chief Complaint: right arm numbness The patient is a 67 year old M of 2 prior strokes, first stroke was in fall 2016, second stroke in spring 2017, with residual difficulty reading, history of CAD with non-STEMI in December 2016 followed by triple vessel CABG in January 2017, patient of Dr. Milton, also with a history of hypertension, hyperlipidemia, type 2 diabetes, and traumatic concussion and June 2017 related to a workplace injury, who presents to the emergency room with complaints of right sided arm numbness and tingling. Patient states he woke up with a sensation yesterday morning. It continued throughout the day and he figured he would get it checked out at his follow-up appointment he had the next day-he was planning on getting a CT of the chest for known pulmonary nodules. However the next day he had worsening dizziness and felt the need to go to the urgent care-they sent him to the emergency room. He has ongoing numbness and tingling of the right arm denies weakness. He denies focal weakness in his upper or lower extremities. He has no new vision changes, he has chronic numbness in his LE. He states he only takes plavix following his prior ID and CVAs, and does not take statins 2/2 weakness/aches/inability to walk. He denies a hx of Afib. He smoked about 30 years but quit in 1997. [] Past Medical History Past Medical History (Chronic Problems): Chronic Problems (Last Updated 03/18/17 @ 10:35 by SUKI Light) Open wound of scalp (Chronic) Dizziness (Chronic) Essential (primary) hypertension (Chronic) Atherosclerosis of [place] coronary artery of [place] heart without angina pectoris (Chronic) CABG- THRASHER to LAD, reverse SVG to post lateral, reverse SVG to OM 01/21/2017 Hyperlipidemia (Chronic) Diabetes mellitus (Chronic) Thyroid disorder (Chronic) Medical History: Medical History (Last Updated 03/18/17 @ 10:35 by Jesús H Roof, [employer]FF [employer] OFFICER-C) Essential (primary) hypertension (Chronic) I10 Atherosclerosis of [place] coronary artery of [place] heart without angina pectoris (Chronic) I25.10 CABG- THRASHER to LAD, reverse SVG to post lateral, reverse SVG to OM 01/21/2017 Unstable angina pectoris (Acute) NSTEMI (non-ST elevated myocardial infarction) (Acute) I21.4 Hyperlipidemia (Chronic) E78.5 Diabetes mellitus (Chronic) E11.9 Thyroid disorder (Chronic) History of left heart catheterization Z98.890 multivessel CAD 01/19/2017 Allergies atorvastatin [From Lipitor] Adverse Reaction (Mild, Verified 02/08/18 17:17) mylagia lower leg pain lanolin Adverse Reaction (Unknown, Verified 08/01/17 10:03) Unknown Home Medications: Ambulatory Orders Medication Instructions Recorded Levothyroxine [Synthroid] 125 mcg PO DAILY 01/19/17 Multivitamin with Iron 1 ea PO DAILY 01/19/17 [Multivitamins with Iron] metformin 500 mg tablet 500 mg PO BID 03/19/17 losartan 25 mg tablet 25 mg PO DAILY 06/28/17 Insulin Human 75/25 [Humalog Mix 34 unit SC DAILY 10/06/17 75-25 Kwikpen] Clopidogrel Bisulfate [Plavix] 75 mg PO DAILY 02/08/18 Gluc Bautista/Chondro Bautista A/Vit C/Mn 1 each PO 02/08/18 [Glucosamine-Chondroitin Cap] Insulin Human 75/25 [Humalog Mix 30 units SQ QHS 02/08/18 75-25 Kwikpen] Metoprolol Tartrate 12.5 mg PO BID 02/08/18 Tumeric Extract 1 tab PO BID 02/08/18 Surgical History: Surgical History (Last Reviewed 06/28/17 @ 09:08 by Stephany Lugo) Hx of CABG Onset Date: ~01/21/17 Z95.1 THRASHER to LAD, reverse SVG to post lateral, reverse SVG to OM @ [facility] Surgical History: no surgical history Psychiatric History: No pertinent psych hx Lives: Spouse/ Significant Other Smoking Status: Former smoker Alcohol: None Drugs: None - *Family History Sibling Family History: Family History (Last Reviewed 06/28/17 @ 09:08 by Stephany Lugo) Sister CAD (coronary artery disease) Diabetes Brother CAD (coronary artery disease) History Items: Heart Disease - ID Maternal Family History: Family History (Last Reviewed 06/28/17 @ 09:08 by Stephany Lugo) Sister CAD (coronary artery disease) Diabetes Brother CAD (coronary artery disease) History Items: No pertinent history Paternal Family History: Family History (Last Reviewed 06/28/17 @ 09:08 by Stephany Lugo) Sister CAD (coronary artery disease) Diabetes Brother CAD (coronary artery disease) History Items: No pertinent history Review of Systems Constitutional: Denies: Chills, Fever, Weight Change HEENT: Denies: Head Aches, Sinus Congestion, Sinus Drainage Cardiovascular: Denies: Chest Pain, Palpitations Respiratory: Denies: Cough, Shortness of breath at rest, Sputum production Gastrointestinal: Denies: Abdominal Pain, Nausea, Vomiting Genitourinary: Denies: Dysuria Musculoskeletal: Denies: Joint Pain, Joint Tenderness Skin: Denies: Rash, Wounds Neurological: Reports: Numbness, Tingling, - - dizziness. Denies: Focal weakness Psychiatric: Denies: Anxiety, Depression, Homicidal Ideations, Suicidal Ideations Hematologic/ Lymphatic: Denies: Easy Bruising, Easy Bleeding VTE Information - Inpt Only VTE Present on Admission: No VTE Mechan Device Prophylaxis: None VTE Pharm Prophylaxis ordered?: Yes - Physical Exam General: Alert, Oriented x3, Cooperative HEENT: Atraumatic, PERRLA, EOMI, Normocephalic Neck: Supple, No JVD, Negative Carotid Bruits Lungs: Clear to auscultation, Normal air movement Cardiovascular: Regular rate, No murmurs Abdomen: Bowel Sounds Present, Soft, Non Tender Extremities: No edema, Capillary Refill Less than 3 Seconds Skin: No rashes, No breakdown Musculoskeletal: No Tenderness to Palpation of Joints or Extremities Neurological: Cranial nerves II-XII grossly intact Psych/Mental Status: Normal Affect, Appropriate Vital Signs Temp Pulse Resp BP Pulse Ox 98.1 F 58 L 20 H 148/78 H 96 02/08/18 10:50 02/08/18 16:34 02/08/18 16:34 02/08/18 16:34 02/08/18 16:34 Oxygen Delivery Method Room Air Weight: 240 lb Body Mass Index (BMI) 31.6 Finger Stick Blood Glucose 220 Laboratory Tests Past 24 Hrs 02/08/18 02/08/18 02/08/18 11:25 11:25 11:25 WBC 6.2 RBC 5.13 Hgb 14.2 Hct 43.8 MCV 85.4 MCH 27.7 MCHC 32.4 RDW 15.5 H RDW Differential 48.0 H Plt Count 175 MPV 11.4 Immature Gran % (Auto) 0.600 Neut % (Auto) 64.3 Lymph % (Auto) 24.2 [place] % (Auto) 7.6 Eos % (Auto) 2.8 Baso % (Auto) 0.5 Absolute Neuts (auto) 4.0 Absolute Lymphs (auto) 1.49 Total Counted Not Reportable PT 12.8 INR 1.0 APTT 31.0 Sodium 139 Potassium 4.3 Chloride 105 Carbon Dioxide 28.0 Anion Gap 6 BUN 22 H Creatinine 1.16 Estim Creat Clear Calc 69.84 Est GFR (MDRD) Af Amer 81 Est GFR (MDRD) Non-Af 67 BUN/Creatinine Ratio 19.0 Glucose 211 H Calcium 8.6 Magnesium 1.8 Troponin I 0.233 H 02/08/18 15:25 WBC RBC Hgb Hct MCV MCH MCHC RDW RDW Differential Plt Count MPV Immature Gran % (Auto) Neut % (Auto) Lymph % (Auto) [place] % (Auto) Eos % (Auto) Baso % (Auto) Absolute Neuts (auto) Absolute Lymphs (auto) Total Counted PT INR APTT Sodium Potassium Chloride Carbon Dioxide Anion Gap BUN Creatinine Estim Creat Clear Calc Est GFR (MDRD) Af Amer Est GFR (MDRD) Non-Af BUN/Creatinine Ratio Glucose Calcium Magnesium Troponin I 0.271 H POC Glucose 02/08/18 11:23 POC Glucose 220 H Assessment/Plan All Active Problems (Last Updated 02/08/18 @ 18:05 by Bernadette Maloney MD) Ischemic stroke (Acute) CVA (cerebral vascular accident) (Acute) 1. Acute CVA - MRI c/w stroke-small acute lacunar infarct in the left internal capsule, chronic ischemic changes right cerebellar hemisphere, mild atrophy and periventricular white matter ischemic changes.. 2 prior strokes Dec 2016 and June 2017. Continue plavix, add aspirin and statin (will likely refuse statin - intolerant). Obtain echo, consult neuro, maintain on tele. Permissive HTN. CTA head and neck done with no acute issues. 2. Elevated troponin - trend. EKG with bifasicular block. Repeat EKG in AM, maintain tele monitoring. 3. Hx CAD prior NSTEMI 12/2016 with CABGx3 01/2017 - Pt of Dr. Milton - continue plavix, hold losartan, metoprolol for CVA 4. DMt2 with obesity - hold metformin, add SSI, dietary consult. 5. Hypothyroidism - continue Synthroid. 6. HTN -permissive DVT prophylaxis: Lovenox Discharge planning: PT OT and ST eval's. No new focal weakness, patient will likely return home. This patient was seen by Guido Delong PA-C under the supervision of Doctor Haider. <Bernadette Maloney - Last Filed: 02/08/18 18:19> History of Present Illness The patient is a 67 year old M [] Past Medical History Medical History: Medical History (Last Updated 03/18/17 @ 10:35 by SUKI Light) Essential (primary) hypertension (Chronic) I10 Atherosclerosis of [place] coronary artery of [place] heart without angina pectoris (Chronic) I25.10 CABG- THRASHER to LAD, reverse SVG to post lateral, reverse SVG to OM 01/21/2017 Hyperlipidemia (Chronic) E78.5 Diabetes mellitus (Chronic) E11.9 Thyroid disorder (Chronic) History of left heart catheterization Z98.890 multivessel CAD 01/19/2017 Allergies atorvastatin [From Lipitor] Adverse Reaction (Mild, Verified 02/08/18 17:17) mylagia lower leg pain lanolin Adverse Reaction (Unknown, Verified 08/01/17 10:03) Unknown Surgical History: Surgical History (Last Reviewed 06/28/17 @ 09:08 by Stephany Lugo) Hx of CABG Onset Date: ~01/21/17 Z95.1 THRASHER to LAD, reverse SVG to post lateral, reverse SVG to OM @ [facility] - *Family History Sibling Family History: Family History (Last Reviewed 06/28/17 @ 09:08 by Stephany Lugo) Sister CAD (coronary artery disease) Diabetes Brother CAD (coronary artery disease) Maternal Family History: Family History (Last Reviewed 06/28/17 @ 09:08 by Stephany Lugo) Sister CAD (coronary artery disease) Diabetes Brother CAD (coronary artery disease) Paternal Family History: Family History (Last Reviewed 06/28/17 @ 09:08 by Stephany Lugo) Sister CAD (coronary artery disease) Diabetes Brother CAD (coronary artery disease) - Physical Exam Vital Signs Temp Pulse Resp BP Pulse Ox 97.8 F 71 20 H 175/85 H 94 02/08/18 17:46 02/08/18 17:46 02/08/18 17:46 02/08/18 17:48 02/08/18 17:46 Oxygen Delivery Method Room Air Weight: 236 lb 15.951 oz Body Mass Index (BMI) 31.2 Finger Stick Blood Glucose 220 Laboratory Tests Past 24 Hrs 02/08/18 02/08/18 02/08/18 11:25 11:25 11:25 WBC 6.2 RBC 5.13 Hgb 14.2 Hct 43.8 MCV 85.4 MCH 27.7 MCHC 32.4 RDW 15.5 H RDW Differential 48.0 H Plt Count 175 MPV 11.4 Immature Gran % (Auto) 0.600 Neut % (Auto) 64.3 Lymph % (Auto) 24.2 [place] % (Auto) 7.6 Eos % (Auto) 2.8 Baso % (Auto) 0.5 Absolute Neuts (auto) 4.0 Absolute Lymphs (auto) 1.49 Total Counted Not Reportable PT 12.8 INR 1.0 APTT 31.0 Sodium 139 Potassium 4.3 Chloride 105 Carbon Dioxide 28.0 Anion Gap 6 BUN 22 H Creatinine 1.16 Estim Creat Clear Calc 69.84 Est GFR (MDRD) Af Amer 81 Est GFR (MDRD) Non-Af 67 BUN/Creatinine Ratio 19.0 Glucose 211 H Calcium 8.6 Magnesium 1.8 Troponin I 0.233 H 02/08/18 15:25 WBC RBC Hgb Hct MCV MCH MCHC RDW RDW Differential Plt Count MPV Immature Gran % (Auto) Neut % (Auto) Lymph % (Auto) [place] % (Auto) Eos % (Auto) Baso % (Auto) Absolute Neuts (auto) Absolute Lymphs (auto) Total Counted PT INR APTT Sodium Potassium Chloride Carbon Dioxide Anion Gap BUN Creatinine Estim Creat Clear Calc Est GFR (MDRD) Af Amer Est GFR (MDRD) Non-Af BUN/Creatinine Ratio Glucose Calcium Magnesium Troponin I 0.271 H POC Glucose 02/08/18 11:23 POC Glucose 220 H Assessment/Plan Hospitalist note: I am seeing this patient in conjunction with Guido Delong. I independently seen and examined the patient. History and physical, laboratory data and imaging studies reviewed and I agree with above admission and workup plan. Patient seen and examined. Patient came to the emergency department today because of right arm numbness that started yesterday. He denied focal arm or leg weakness. He denied slurred speech or blurred vision. He complains of dizziness, being unsteady but this has been going on for the last several months and this is attributed to brain concussion secondary to injury at workplace. He states that his dizziness was worse today. - Physical Exam General: Alert, Oriented x3, Cooperative, No apparent distress. HEENT: Atraumatic, PERRLA, EOMI. Neck: Supple, No JVD, Negative Carotid Bruits, Trachea Midline, Thyroid Normal. Lungs: Clear to auscultation, Normal air movement, No rhonchi, No wheeze, No rales. Cardiovascular: Regular rate, Regular Rhythm, Normal S1, Normal S2, PMI Normal. Abdomen: Bowel Sounds Present, Soft, Non Tender, Non-Distended, No Hepato-splenomegaly. Extremities: No clubbing, No cyanosis, No edema Skin: No rashes, No breakdown Neurological: Cranial nerves are intact, normal power and tone of all limbs. Neuro grossly intact Vital Signs are stable. Assessment and plan: #1 acute ischemic stroke of the left internal capsule: MRI brain reviewed, revealed small acute infarction of the left internal capsule. Patient has no significant motor deficit. His blood pressure slightly elevated, permissive, other vital signs are stable. EKG revealed normal sinus rhythm with first-degree AV block, right bundle branch block, no acute ischemic changes and no cardiac arrhythmias. CTA of the head showed no hemodynamically significant vascular disease or stenosis. CTA of the neck revealed bilateral atherosclerosis of the carotids less than 50% stenosis. Plan: Admit to PCU, cardiac monitoring, serial cardiac enzymes, 2D echocardiogram, start baby aspirin, continue Plavix, neurology consult, PT OT evaluation and treatment. Patient refused any type of statins because of side effects. I offered him to start on pravastatin which is less likely to cause muscle pains and aches but he refused. #2 borderline elevated troponin/probable non-ST elevation ID: Patient denies any chest pain. EKG reviewed as above, no ischemic changes. Troponin is borderline elevated. He had a history of non-STEMI and CABG back and January,. Plan: Cardiac monitoring, serial cardiac enzymes, 2D echocardiogram, continue aspirin and Plavix. #3 CAD status post CABG: Plan as above, 2D echocardiogram, continue Plavix, start aspirin, continue metoprolol and losartan. #4 history of stroke: Patient had 2 strokes in the last 2 years, without significant deficit. Unclear why patient has recurrent strokes. EKG revealed no evidence of cardiac arrhythmias. Plan as above. #5 other chronic medical problems: Stable, continue current medications as above. This note was generated with Visualnestation software. It may contain incorrect words, spelling, and punctuation that were not noted in checking the note before signing. Code Visit Inpatient E&M: 77040 Init Hosp L3
--- NOTE | 2018-02-08 17:36 | HP.PCM_ITS ---
Addendum entered and electronically signed by FELISA Feng 02/08/18 18:00: Code Visit Addendum: Pt refuses to try any statin medications at this time stating he tried two in the past and both of they gave him severe muscle stiffness to that point that he could not move. Original Note: <Guido Delong - Last Filed: 02/08/18 17:59> Problem List (1) CVA (cerebral vascular accident) Status: Acute (2) Essential (primary) hypertension Status: Chronic (3) Hyperlipidemia Status: Chronic (4) Diabetes mellitus Status: Chronic (5) Thyroid disorder Status: Chronic History of Present Illness Date of Admission: 02/08/18 Chief Complaint: right arm numbness The patient is a 67 year old M of 2 prior strokes, first stroke was in fall 2016, second stroke in spring 2017, with residual difficulty reading, history of CAD with non-STEMI in December 2016 followed by triple vessel CABG in January 2017, patient of Dr. Milton, also with a history of hypertension, hyperlipidemia, type 2 diabetes, and traumatic concussion and June 2017 related to a workplace injury, who presents to the emergency room with complaints of right sided arm numbness and tingling. Patient states he woke up with a sensat ion yesterday morning. It continued throughout the day and he figured he would get it checked out at his follow-up appointment he had the next day-he was planning on getting a CT of the chest for known pulmonary nodules. However the next day he had worsening dizziness and felt the need to go to the urgent care- they sent him to the emergency room. He has ongoing numbness and tingling of the right arm denies weakness. He denies focal weakness in his upper or lower extremities. He has no new vision changes, he has chronic numbness in his LE. He states he only takes plavix following his prior AR and CVAs, and does not take statins 2/2 weakness/aches/inability to walk. He denies a hx of Afib. He smoked about 30 years but quit in 1997. [] Past Medical History Past Medical History (Chronic Problems): Chronic Problems (Last Updated 03/18/17 @ 10:35 by Jesús Hensley NP-C) Open wound of scalp (Chronic) Dizziness (Chronic) Essential (primary) hypertension (Chronic) Atherosclerosis of [place] coronary artery of [place] heart without angina pectoris (Chronic) CABG- THRASHER to LAD, reverse SVG to post lateral, reverse SVG to OM 01/21/2017 Hyperlipidemia (Chronic) Diabetes mellitus (Chronic) Thyroid disorder (Chronic) Medical History: Medical History (Last Updated 03/18/17 @ 10:35 by Jesús Hensley NP-C) Essential (primary) hypertension (Chronic) I10 Atherosclerosis of [place] coronary artery of [place] heart without angina pectoris (Chronic) I25.10 CABG- THRASHER to LAD, reverse SVG to post lateral, reverse SVG to OM 01/21/2017 Unstable angina pectoris (Acute) NSTEMI (non-ST elevated myocardial infarction) (Acute) I21.4 Hyperlipidemia (Chronic) E78.5 Diabetes mellitus (Chronic) E11.9 Thyroid disorder (Chronic) History of left heart catheterization Z98.890 multivessel CAD 01/19/2017 Allergies atorvastatin [From Lipitor] Adverse Reaction (Mild, Verified 02/08/18 17:17) mylagia lower leg pain lanolin Adverse Reaction (Unknown, Verified 08/01/17 10:03) Unknown Home Medications: Ambulatory Orders Medication Instructions Recorded Levothyroxine [Synthroid] 125 mcg PO DAILY 01/19/17 Multivitamin with Iron 1 ea PO DAILY 01/19/17 [Multivitamins with Iron] metformin 500 mg tablet 500 mg PO BID 03/19/17 losartan 25 mg tablet 25 mg PO DAILY 06/28/17 Insulin Human 75/25 [Humalog Mix 34 unit SC DAILY 10/06/17 75-25 Kwikpen] Clopidogrel Bisulfate [Plavix] 75 mg PO DAILY 02/08/18 Gluc Bautista/Chondro Bautista A/Vit C/Mn 1 each PO 02/08/18 [Glucosamine-Chondroitin Cap] Insulin Human 75/25 [Humalog Mix 30 units SQ QHS 02/08/18 75-25 Kwikpen] Metoprolol Tartrate 12.5 mg PO BID 02/08/18 Tumeric Extract 1 tab PO BID 02/08/18 Surgical History: Surgical History (Last Reviewed 06/28/17 @ 09:08 by Stephany Lugo) Hx of CABG Onset Date: ~01/21/17 Z95.1 THRASHER to LAD, reverse SVG to post lateral, reverse SVG to OM @ [facility] Surgical History: no surgical history Psychiatric History: No pertinent psych hx Lives: Spouse/ Significant Other Smoking Status: Former smoker Alcohol: None Drugs: None - *Family History Sibling Family History: Family History (Last Reviewed 06/28/17 @ 09:08 by Stephany Lugo) Sister CAD (coronary artery disease) Diabetes Brother CAD (coronary artery disease) History Items: Heart Disease - AR Maternal Family History: Family History (Last Reviewed 06/28/17 @ 09:08 by Stephany Lugo) Sister CAD (coronary artery disease) Diabetes Brother CAD (coronary artery disease) History Items: No pertinent history Paternal Family History: Family History (Last Reviewed 06/28/17 @ 09:08 by Stephany Lugo) Sister CAD (coronary artery disease) Diabetes Brother CAD (coronary artery disease) History Items: No pertinent history Review of Systems Constitutional: Denies: Chills, Fever, Weight Change HEENT: Denies: Head Aches, Sinus Congestion, Sinus Drainage Cardiovascular: Denies: Chest Pain, Palpitations Respiratory: Denies: Cough, Shortness of breath at rest, Sputum production Gastrointestinal: Denies: Abdominal Pain, Nausea, Vomiting Genitourinary: Denies: Dysuria Musculoskeletal: Denies: Joint Pain, Joint Tenderness Skin: Denies: Rash, Wounds Neurological: Reports: Numbness, Tingling, - - dizziness. Denies: Focal weakness Psychiatric: Denies: Anxiety, Depression, Homicidal Ideations, Suicidal Ideations Hematologic/ Lymphatic: Denies: Easy Bruising, Easy Bleeding VTE Information - Inpt Only VTE Present on Admission: No VTE Mechan Device Prophylaxis: None VTE Pharm Prophylaxis ordered?: Yes - Physical Exam General: Alert, Oriented x3, Cooperative HEENT: Atraumatic, PERRLA, EOMI, Normocephalic Neck: Supple, No JVD, Negative Carotid Bruits Lungs: Clear to auscultation, Normal air movement Cardiovascular: Regular rate, No murmurs Abdomen: Bowel Sounds Present, Soft, Non Tender Extremities: No edema, Capillary Refill Less than 3 Seconds Skin: No rashes, No breakdown Musculoskeletal: No Tenderness to Palpation of Joints or Extremities Neurological: Cranial nerves II-XII grossly intact Psych/Mental Status: Normal Affect, Appropriate Vital Signs Temp Pulse Resp BP Pulse Ox 98.1 F 58 L 20 H 148/78 H 96 02/08/18 10:50 02/08/18 16:34 02/08/18 16:34 02/08/18 16:34 02/08/18 16:34 Oxygen Delivery Method Room Air Weight: 240 lb Body Mass Index (BMI) 31.6 Finger Stick Blood Glucose 220 Laboratory Tests Past 24 Hrs 02/08/18 02/08/18 02/08/18 11:25 11:25 11:25 WBC 6.2 RBC 5.13 Hgb 14.2 Hct 43.8 MCV 85.4 MCH 27.7 MCHC 32.4 RDW 15.5 H RDW Differential 48.0 H Plt Count 175 MPV 11.4 Immature Gran % (Auto) 0.600 Neut % (Auto) 64.3 Lymph % (Auto) 24.2 Chaves % (Auto) 7.6 Eos % (Auto) 2.8 Baso % (Auto) 0.5 Absolute Neuts (auto) 4.0 Absolute Lymphs (auto) 1.49 Total Counted Not Reportable PT 12.8 INR 1.0 APTT 31.0 Sodium 139 Potassium 4.3 Chloride 105 Carbon Dioxide 28.0 Anion Gap 6 BUN 22 H Creatinine 1.16 Estim Creat Clear Calc 69.84 Est GFR (MDRD) Af Amer 81 Est GFR (MDRD) Non-Af 67 BUN/Creatinine Ratio 19.0 Glucose 211 H Calcium 8.6 Magnesium 1.8 Troponin I 0.233 H 02/08/18 15:25 WBC RBC Hgb Hct MCV MCH MCHC RDW RDW Differential Plt Count MPV Immature Gran % (Auto) Neut % (Auto) Lymph % (Auto) Chaves % (Auto) Eos % (Auto) Baso % (Auto) Absolute Neuts (auto) Absolute Lymphs (auto) Total Counted PT INR APTT Sodium Potassium Chloride Carbon Dioxide Anion Gap BUN Creatinine Estim Creat Clear Calc Est GFR (MDRD) Af Amer Est GFR (MDRD) Non-Af BUN/Creatinine Ratio Glucose Calcium Magnesium Troponin I 0.271 H POC Glucose 02/08/18 11:23 POC Glucose 220 H Assessment/Plan All Active Problems (Last Updated 02/08/18 @ 18:05 by Bernadette Maloney MD) Ischemic stroke (Acute) CVA (cerebral vascular accident) (Acute) 1. Acute CVA - MRI c/w stroke-small acute lacunar infarct in the left internal capsule, chronic ischemic changes right cerebellar hemisphere, mild atrophy and periventricular white matter ischemic changes.. 2 prior strokes Dec 2016 and June 2017. Continue plavix, add aspirin and statin (will likely refuse statin - intolerant). Obtain echo, consult neuro, maintain on tele. Permissive HTN. CTA head and neck done with no acute issues. 2. Elevated troponin - trend. EKG with bifasicular block. Repeat EKG in AM, maintain tele monitoring. 3. Hx CAD prior NSTEMI 12/2016 with CABGx3 01/2017 - Pt of Dr. Milton - continue plavix, hold losartan, metoprolol for CVA 4. DMt2 with obesity - hold metformin, add SSI, dietary consult. 5. Hypothyroidism - continue Synthroid. 6. HTN -permissive DVT prophylaxis: Lovenox Discharge planning: PT OT and ST eval's. No new focal weakness, patient will likely return home. This patient was seen by Guido Delong PA-C under the supervision of Doctor Haider. <Bernadette Maloney E - Last Filed: 02/08/18 18:19> History of Present Illness The patient is a 67 year old M [] Past Medical History Medical History: Medical History (Last Updated 03/18/17 @ 10:35 by TANNER LightC) Essential (primary) hypertension (Chronic) I10 Atherosclerosis of [place] coronary artery of [place] heart without angina pectoris (Chronic) I25.10 CABG- THRASHER to LAD, reverse SVG to post lateral, reverse SVG to OM 01/21/2017 Hyperlipidemia (Chronic) E78.5 Diabetes mellitus (Chronic) E11.9 Thyroid disorder (Chronic) History of left heart catheterization Z98.890 multivessel CAD 01/19/2017 Allergies atorvastatin [From Lipitor] Adverse Reaction (Mild, Verified 02/08/18 17:17) mylagia lower leg pain lanolin Adverse Reaction (Unknown, Verified 08/01/17 10:03) Unknown Surgical History: Surgical History (Last Reviewed 06/28/17 @ 09:08 by Stephany Lugo) Hx of CABG Onset Date: ~01/21/17 Z95.1 THRASHER to LAD, reverse SVG to post lateral, reverse SVG to OM @ [facility] - *Family History Sibling Family History: Family History (Last Reviewed 06/28/17 @ 09:08 by Stephany Lugo) Sister CAD (coronary artery disease) Diabetes Brother CAD (coronary artery disease) Maternal Family History: Family History (Last Reviewed 06/28/17 @ 09:08 by Stephany Lugo) Sister CAD (coronary artery disease) Diabetes Brother CAD (coronary artery disease) Paternal Family History: Family History (Last Reviewed 06/28/17 @ 09:08 by Stephany Lugo) Sister CAD (coronary artery disease) Diabetes Brother CAD (coronary artery disease) - Physical Exam Vital Signs Temp Pulse Resp BP Pulse Ox 97.8 F 71 20 H 175/85 H 94 02/08/18 17:46 02/08/18 17:46 02/08/18 17:46 02/08/18 17:48 02/08/18 17:46 Oxygen Delivery Method Room Air Weight: 236 lb 15.951 oz Body Mass Index (BMI) 31.2 Finger Stick Blood Glucose 220 Laboratory Tests Past 24 Hrs 02/08/18 02/08/18 02/08/18 11:25 11:25 11:25 WBC 6.2 RBC 5.13 Hgb 14.2 Hct 43.8 MCV 85.4 MCH 27.7 MCHC 32.4 RDW 15.5 H RDW Differential 48.0 H Plt Count 175 MPV 11.4 Immature Gran % (Auto) 0.600 Neut % (Auto) 64.3 Lymph % (Auto) 24.2 Chaves % (Auto) 7.6 Eos % (Auto) 2.8 Baso % (Auto) 0.5 Absolute Neuts (auto) 4.0 Absolute Lymphs (auto) 1.49 Total Counted Not Reportable PT 12.8 INR 1.0 APTT 31.0 Sodium 139 Potassium 4.3 Chloride 105 Carbon Dioxide 28.0 Anion Gap 6 BUN 22 H Creatinine 1.16 Estim Creat Clear Calc 69.84 Est GFR (MDRD) Af Amer 81 Est GFR (MDRD) Non-Af 67 BUN/Creatinine Ratio 19.0 Glucose 211 H Calcium 8.6 Magnesium 1.8 Troponin I 0.233 H 02/08/18 15:25 WBC RBC Hgb Hct MCV MCH MCHC RDW RDW Differential Plt Count MPV Immature Gran % (Auto) Neut % (Auto) Lymph % (Auto) Chaves % (Auto) Eos % (Auto) Baso % (Auto) Absolute Neuts (auto) Absolute Lymphs (auto) Total Counted PT INR APTT Sodium Potassium Chloride Carbon Dioxide Anion Gap BUN Creatinine Estim Creat Clear Calc Est GFR (MDRD) Af Amer Est GFR (MDRD) Non-Af BUN/Creatinine Ratio Glucose Calcium Magnesium Troponin I 0.271 H POC Glucose 02/08/18 11:23 POC Glucose 220 H Assessment/Plan Hospitalist note: I am seeing this patient in conjunction with Guido Delong. I independently seen and examined the patient. History and physical, laboratory data and imaging studies reviewed and I agree with above admission and workup plan. Patient seen and examined. Patient came to the emergency department today because of right arm numbness that started yesterday. He denied focal arm or leg weakness. He denied slurred speech or blurred vision. He complains of dizziness, being unsteady but this has been going on for the last several months and this is attributed to brain concussion secondary to injury at workplace. He states that his dizziness was worse today. - Physical Exam General: Alert, Oriented x3, Cooperative, No apparent distress. HEENT: Atraumatic, PERRLA, EOMI. Neck: Supple, No JVD, Negative Carotid Bruits, Trachea Midline, Thyroid Normal. Lungs: Clear to auscultation, Normal air movement, No rhonchi, No wheeze, No rales. Cardiovascular: Regular rate, Regular Rhythm, Normal S1, Normal S2, PMI Normal. Abdomen: Bowel Sounds Present, Soft, Non Tender, Non-Distended, No Hepato- splenomegaly. Extremities: No clubbing, No cyanosis, No edema Skin: No rashes, No breakdown Neurological: Cranial nerves are intact, normal power and tone of all limbs. Neuro grossly intact Vital Signs are stable. Assessment and plan: #1 acute ischemic stroke of the left internal capsule: MRI brain reviewed, revealed small acute infarction of the left internal capsule. Patient has no significant motor deficit. His blood pressure slightly elevated, permissive, other vital signs are stable. EKG revealed normal sinus rhythm with first- degree AV block, right bundle branch block, no acute ischemic changes and no cardiac arrhythmias. CTA of the head showed no hemodynamically significant vascular disease or stenosis. CTA of the neck revealed bilateral atherosclerosis of the carotids less than 50% stenosis. Plan: Admit to PCU, cardiac monitoring, serial cardiac enzymes, 2D echocardiogram, start baby aspirin, continue Plavix, neurology consult, PT OT evaluation and treatment. Patient refused any type of statins because of side effects. I offered him to start on pravastatin which is less likely to cause muscle pains and aches but he refused. #2 borderline elevated troponin/probable non-ST elevation AR: Patient denies any chest pain. EKG reviewed as above, no ischemic changes. Troponin is borderline elevated. He had a history of non-STEMI and CABG back and January,. Plan: Cardiac monitoring, serial cardiac enzymes, 2D echocardiogram, continue aspirin and Plavix. #3 CAD status post CABG: Plan as above, 2D echocardiogram, continue Plavix, start aspirin, continue metoprolol and losartan. #4 history of stroke: Patient had 2 strokes in the last 2 years, without significant deficit. Unclear why patient has recurrent strokes. EKG revealed no evidence of cardiac arrhythmias. Plan as above. #5 other chronic medical problems: Stable, continue current medications as above. This note was generated with [employer] dictation software. It may contain incorrect words, spelling, and punctuation that were not noted in checking the note before signing. Code Visit Inpatient E&M: 34552 Init Hosp L3
--- NOTE | 2018-02-08 17:37 | ECHOD_ITS ---
Reason For Study: TIA/CVA Procedure This was a 2D Doppler, Color Flow transthoracic echocardiogram. Exam performed portable in patient room. Left Ventricle Moderately dilated left ventricle. The estimated ejection fraction is 45 %. Stage 1 diastolic dysfunction. There is moderate global hypokinesis of the left ventricle. Right Ventricle Mildly dilated right ventricle. Normal systolic function. Atria The left atrium is moderately enlarged. The right atrium is mildly enlarged. Normal atrial septum. Mitral Valve The mitral valve is structurally normal. No prolapse or stenosis seen. Mild (1+) posteriorly directed mitral valve insufficiency. Tricuspid Valve Normal tricuspid valve. Mild (1+) tricuspid valve insufficiency. Right ventricular systolic pressure estimated to be 37 mmHg. Mild pulmonary hypertension. Aortic Valve Trisinus/trileaflet aortic valve. Normal aortic valve. Pulmonic Valve Normal pulmonic valve. Trivial pulmonic valve insufficiency. Great Vessels Normal aortic root. Normal arch. Normal inferior vena cava. Inferior vena cava collapse with sniff. Pericardium/Pleural No pericardial effusion. MMode/2D Measurements & Calculations LVIDd: 5.8 cm IVSd: 1.0 cm Ao root diam: 3.4 cm LVIDs: 4.5 cm LVPWd: 1.1 cm RVDd: 4.0 cm FS: 23.0 % LAV(MOD-bp): 121.5 ml EDV(MOD-sp4): 154.4 ml EDV(MOD-sp2): 137.7 ml LAV(MOD-bp) Indexed: 52.5 ml/m2 ESV(MOD-sp4): 78.8 ml EF(MOD-sp2): 40.8 % LAV(MOD-sp2): 115.9 ml EF(MOD-sp4): 48.9 % LAV(MOD-sp4): 105.5 ml SV(MOD-sp4): 75.6 ml SV(MOD-sp2): 56.1 ml LA A4 area: 31.2 cm2 LA dimension(2D): 5.1 cm RA A4 area: 25.2 cm2 Doppler Measurements & Calculations MV E max christian: 65.2 cm/sec Lat Peak E' Christian: 8.3 cm/sec Med Peak E' Christian: 5.6 cm/sec MV A max christian: 31.6 cm/sec E/E' lat: 7.9 E/E' med: 11.7 MV E/A: 2.1 Ao V2 max: 91.7 cm/sec LV V1 max: 87.5 cm/sec PA V2 max: 88.7 cm/sec Ao max P.4 mmHg LV V1 max P.1 mmHg TR max christian: 282.4 cm/sec TR max P.9 mmHg Interpretation Summary Moderately dilated left ventricle. The estimated ejection fraction is 45 %. Stage 1 diastolic dysfunction. There is moderate global hypokinesis of the left ventricle. Mildly dilated right ventricle. The left atrium is moderately enlarged. The right atrium is mildly enlarged. Mild (1+) posteriorly directed mitral valve insufficiency. Mild (1+) tricuspid valve insufficiency. Right ventricular systolic pressure estimated to be 37 mmHg. Mild pulmonary hypertension. Compared to echo report dated 08/03/2015, no appreciable chnages noted. Ordering Physician: Bernadette Maloney Performed By: Bhumi Mcdermott RDCS
[2018-02-08] MEDS: 0.9% Normal Saline 1,000 ML 75 ML IV (18:10)
[2018-02-08] MEDS: Metoprolol Tartrate 25 MG Tablet 12.5 MG PO (21:46)
[2018-02-08] MEDS: Insulin Lispro 100 UNIT/ML INSULN.PEN SC (21:46)
[2018-02-08] MEDS: Famotidine 20 MG Tablet PO (21:46)
[2018-02-08 21:56] LABS: Bedside Glucose 211 mg/dL (70-110)
[2018-02-09] VITALS (10 sets, daily range): BP systolic 124–163; BP diastolic 50–73; PULSE 50–73; RESP 16–18; TEMP 36.6–36.9; O2SAT 93–96
[2018-02-09 06:47] LABS: Cholesterol 147 mg/dL (200); High Density Lipoprotein 36 mg/dL; Triglycerides 125 mg/dL; Very Low Density Lipoprotein 25 mg/dL (5-40)
[2018-02-09] MEDS: Levothyroxine 125 MCG Tablet PO (06:51)
[2018-02-09 07:01] LABS: Bedside Glucose 129 mg/dL (70-110)
--- NOTE | 2018-02-09 10:13 | PCM.DC ---
You will use the following diet at home:: Calorie/Carbohydrate Controlled (specify 1200, 1400, etc) - 1800 elizabeth / day, Cardiac Your food should be the consistency of: Regular Your liquids should be the consistency of: Regular/Thin Discharge Activity: Return to Normal Activity Allergies/Adverse Reactions: Allergies atorvastatin [From Lipitor] Adverse Reaction (Mild, Verified 02/08/18 17:17) mylagia lower leg pain lanolin Adverse Reaction (Unknown, Verified 08/01/17 10:03) Unknown Medications to take at Discharge Levothyroxine [Synthroid] 125 mcg PO DAILY 01/19/17 Multivitamin with Iron [Multivitamins with Iron] 1 ea PO DAILY 01/19/17 metformin 500 mg tablet 500 mg PO BID 03/19/17 losartan 25 mg tablet 25 mg PO DAILY 06/28/17 Insulin Human 75/25 [Humalog Mix 75-25 Kwikpen] 34 unit SC DAILY 10/06/17 Clopidogrel Bisulfate [Plavix] 75 mg PO DAILY 02/08/18 Gluc Bauitsta/Chondro Bautista A/Vit C/Mn [Glucosamine-Chondroitin Cap] 1 each PO 02/08/18 Insulin Human 75/25 [Humalog Mix 75-25 Kwikpen] 30 units SQ QHS 02/08/18 Metoprolol Tartrate 12.5 mg PO BID 02/08/18 Tumeric Extract 1 tab PO BID 02/08/18 Aspirin [Aspirin, Baby] 81 mg PO DAILY@0800 tab.chew 02/09/18 Orders to be completed after discharge: Cardiac Holter Monitor, Set-Up [[facility]] Time Frame: 02/09/18, Location: None Selected Primary Care Physician: Ellis Fox MD [Primary Care Provider] - Please follow up with your Primary Care Physician in: 1-2 weeks Test Results: Test results from this visit will be discussed in further detail at your follow-up appointment, if applicable. Please Follow Up With: Real Yadav MD When: 3-4 weeks Please Follow Up With: Wali Milton MD When: 3-4 weeks Proposed Discharge Date: 02/09/18
[2018-02-09] MEDS: Enoxaparin 40 MG/0.4 ML Syringe SC (10:26)
[2018-02-09] MEDS: Metoprolol Tartrate 25 MG Tablet 12.5 MG PO (10:27)
[2018-02-09] MEDS: Aspirin 81 MG TAB.CHEW PO (10:27)
[2018-02-09] MEDS: Clopidogrel Bisulfate 75 MG Tablet PO (10:27)
[2018-02-09] MEDS: Losartan Potassium 25 MG Tablet PO (10:27)
[2018-02-09] MEDS: Famotidine 20 MG Tablet PO (10:27)
--- NOTE | 2018-02-09 10:42 | CASEMGMT ---
KATIE HERNÁNDEZ assessment: Face to Face with patient for initial transition planning/care coordination assessment. KATIE HERNÁNDEZ introduced self and role at [facility], pt voices understanding and consents to assessment at this time. Pt is sitting up in bed in no distress at this time. Pt is A/O x4 at this time and answers all questions appropriately at this time. Care providers, pharmacy, and demographics verified/updated at this time. PCP: Ruddy Specialists: Yoan, cardio Preferred [facility]acy[facility] Insurance: [employer] Prescription Benefit: [employer] Living Will/HPOA: Pt states does not have LW/HPOA and declines info at this time. LNOK: Hank Jimenez, Living Arrangements: Pt states lives with in 2 story [facility] and states no concerns at home at this time. Pt states no concerns with ADL's at this time. Transportation: Pt states drives self and states no transportation concerns at this time. DME/HHC: Pt states has a walker but does not use and has bipap through [employer] at this time. Pt states has had HHC in the past s/p open heart surgery. Pt states no hx of SNF. Pt states no concerns with going home at time of discharge. Pt states works part-time. Pt states quit smoking and drinking years ago. Pt states no further concerns/needs at this time. CM to follow for any further discharge planning/needs. Advised pt to ask for CM if any further questions/concerns/needs arise, voices understanding. Plan: [place] KATIE HERNÁNDEZ
[2018-02-09] MEDS: Insulin Human 75/25 Kwickpen 34 UNIT SC (11:18)
[2018-02-09] MEDS: Insulin Lispro 100 UNIT/ML INSULN.PEN SC (11:19)
[2018-02-09 11:21] LABS: Bedside Glucose 222 mg/dL (70-110)
--- NOTE | 2018-02-09 11:23 | PCM.CONS.GEN ---
Problem List (1) Stroke Status: Acute (2) Dizziness Status: Chronic Reason for Consult Date of Consultation: 02/09/18 Reason for Consultation: Stroke, dizziness History of Present Illness: The patient is a 67 year old CM with PMH HTN, HLD, DM, H/O Stroke (acute left MCA stroke in July 2017, TIA following CABG in January 2017), CAD s/p CABG, hypothyroidism, WILLIAN not on CPAP, H/O marijuana/cocaine abuse in the past, Ex-ETOH abuse (quit about 3 yrs ago) admitted with dizziness and right arm numbness. Per patient he had a concussion in June 2017 at work, had right shoulder and head injury, since then has been having dizziness off and on. He has been having right forearm numbness for 2 days, since 02/07/18 when he woke up with the symptom but did not get any medical advice, then yesterday (02/08/18) he was having outpatient CT chest done for chronic cough when he suddenly became dizzy, was wobbly, and was admitted since he continued to have right arm numbness for further stroke work up. NIHSS was 0 on admission per ED documentation. He was not an Ivtpa candidate. Patient also complaints of tinnitus for many years, feels his ears are sore. Complaints of dizziness since his concussion. 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 Per patient he denies any focal motor weakness, IGNACIO, visual disturbances, speech disturbances or sensory loss at present, per patient his dizziness is slightly better than before. He was on statins in the past and could not tolerate the same. MRI brain done on admission revealed acute lacunar infarct in the left IC, chronic infarct in right cerebellum and right thalamus. CTA head/neck < 50% stenosis B/L ICA [] Past Medical History Past Medical History (Chronic Problems): Chronic Problems (Last Updated 02/08/18 @ 18:05 by Bernadette Maloney MD) Open wound of scalp (Chronic) Dizziness (Chronic) Essential (primary) hypertension (Chronic) Atherosclerosis of [place] coronary artery of [place] heart without angina pectoris (Chronic) CABG- THRASHER to LAD, reverse SVG to post lateral, reverse SVG to OM 01/21/2017 Hyperlipidemia (Chronic) Diabetes mellitus (Chronic) Thyroid disorder (Chronic) Medical History: Medical History (Last Updated 02/08/18 @ 18:05 by Bernadette Maloney MD) Essential (primary) hypertension (Chronic) I10 Atherosclerosis of [place] coronary artery of [place] heart without angina pectoris (Chronic) I25.10 CABG- THRASHER to LAD, reverse SVG to post lateral, reverse SVG to OM 01/21/2017 Hyperlipidemia (Chronic) E78.5 Diabetes mellitus (Chronic) E11.9 Thyroid disorder (Chronic) History of left heart catheterization Z98.890 multivessel CAD 01/19/2017 Allergies atorvastatin [From Lipitor] Adverse Reaction (Mild, Verified 02/08/18 17:17) mylagia lower leg pain lanolin Adverse Reaction (Unknown, Verified 08/01/17 10:03) Unknown Home Medications: Ambulatory Orders Medication Instructions Recorded Levothyroxine [Synthroid] 125 mcg PO DAILY 01/19/17 Multivitamin with Iron 1 ea PO DAILY 01/19/17 [Multivitamins with Iron] metformin 500 mg tablet 500 mg PO BID 03/19/17 losartan 25 mg tablet 25 mg PO DAILY 06/28/17 Insulin Human 75/25 [Humalog Mix 34 unit SC DAILY 10/06/17 75-25 Kwikpen] Clopidogrel Bisulfate [Plavix] 75 mg PO DAILY 02/08/18 Gluc Bautista/Chondro Bautista A/Vit C/Mn 1 each PO 02/08/18 [Glucosamine-Chondroitin Cap] Insulin Human 75/25 [Humalog Mix 30 units SQ QHS 02/08/18 75-25 Kwikpen] Metoprolol Tartrate 12.5 mg PO BID 02/08/18 Tumeric Extract 1 tab PO BID 02/08/18 Aspirin [Aspirin, Baby] 81 mg PO DAILY@0800 tab.chew 02/09/18 Surgical History: Surgical History (Last Reviewed 06/28/17 @ 09:08 by Stephany Lugo) Hx of CABG Onset Date: ~01/21/17 Z95.1 THRASHER to LAD, reverse SVG to post lateral, reverse SVG to OM @ [facility] Surgical History: no surgical history Psychiatric History: No pertinent psych hx Lives: Spouse/ Significant Other Smoking Status: Former smoker Alcohol: None Drugs: None - *Family History Sibling Family History: Family History (Last Reviewed 06/28/17 @ 09:08 by Stephany Lugo) Sister CAD (coronary artery disease) Diabetes Brother CAD (coronary artery disease) History Items: Heart Disease - [place] Maternal Family History: Family History (Last Reviewed 06/28/17 @ 09:08 by Stephany Lugo) Sister CAD (coronary artery disease) Diabetes Brother CAD (coronary artery disease) History Items: No pertinent history Paternal Family History: Family History (Last Reviewed 06/28/17 @ 09:08 by Stephany Lugo) Sister CAD (coronary artery disease) Diabetes Brother CAD (coronary artery disease) History Items: No pertinent history Review of Systems Constitutional: Reports: - - complete ROS negative except as documented in HPI Patient Problems: Active and Suspected Problems (Last Updated 02/08/18 @ 18:05 by Bernadette Maloney MD) Stroke (Acute) - Physical Exam General: Alert HEENT: Normocephalic Neck: Supple Lungs: Clear to auscultation Cardiovascular: Normal S1, Normal S2 Abdomen: Bowel Sounds Present Extremities: No cyanosis Neurological: - - consious, alert, AoAx3, CN 2-12 grossly intact, power 5/5 all 4 extremities, no sensory loss at present, no cerebellar signs, Reflexes + B/L B/S/T/K/A, gait deferred. Psych/Mental Status: Normal Affect Vital Signs Temp Pulse Resp BP Pulse Ox 97.8 F 58 L 16 163/72 H 94 02/09/18 09:05 02/09/18 10:27 02/09/18 09:05 02/09/18 10:27 02/09/18 09:05 Oxygen Delivery Method Room Air Weight: 107.5 kg Body Mass Index (BMI) 31.2 Finger Stick Blood Glucose 220 Intake and Output for Last 24 Hours 02/07/18 02/08/18 02/09/18 23:59 23:59 23:59 Intake Total 650 / 650 500 / 500 Balance 650 / 650 500 / 500 Laboratory Tests Past 24 Hrs 02/08/18 02/08/18 02/08/18 11:25 11:25 11:25 WBC 6.2 RBC 5.13 Hgb 14.2 Hct 43.8 MCV 85.4 MCH 27.7 MCHC 32.4 RDW 15.5 H RDW Differential 48.0 H Plt Count 175 MPV 11.4 Immature Gran % (Auto) 0.600 Neut % (Auto) 64.3 Lymph % (Auto) 24.2 [place] % (Auto) 7.6 Eos % (Auto) 2.8 Baso % (Auto) 0.5 Absolute Neuts (auto) 4.0 Absolute Lymphs (auto) 1.49 Total Counted Not Reportable PT 12.8 INR 1.0 APTT 31.0 Sodium 139 Potassium 4.3 Chloride 105 Carbon Dioxide 28.0 Anion Gap 6 BUN 22 H Creatinine 1.16 Estim Creat Clear Calc 69.84 Est GFR (MDRD) Af Amer 81 Est GFR (MDRD) Non-Af 67 BUN/Creatinine Ratio 19.0 Glucose 211 H Calcium 8.6 Magnesium 1.8 Troponin I 0.233 H Triglycerides Cholesterol LDL Cholesterol VLDL Cholesterol HDL Cholesterol 02/08/18 02/08/18 02/09/18 15:25 18:30 05:25 WBC RBC Hgb Hct MCV MCH MCHC RDW RDW Differential Plt Count MPV Immature Gran % (Auto) Neut % (Auto) Lymph % (Auto) [place] % (Auto) Eos % (Auto) Baso % (Auto) Absolute Neuts (auto) Absolute Lymphs (auto) Total Counted PT INR APTT Sodium Potassium Chloride Carbon Dioxide Anion Gap BUN Creatinine Estim Creat Clear Calc Est GFR (MDRD) Af Amer Est GFR (MDRD) Non-Af BUN/Creatinine Ratio Glucose Calcium Magnesium Troponin I 0.271 H 0.273 H Triglycerides 125 Cholesterol 147 LDL Cholesterol 86 VLDL Cholesterol 25 HDL Cholesterol 36 L POC Glucose 02/09/18 02/09/18 02/08/18 11:14 06:53 21:43 POC Glucose 222 H 129 H 211 H 02/08/18 11:23 POC Glucose 220 H Assessment/Plan All Active Problems (Last Updated 02/08/18 @ 18:05 by Bernadette Maloney MD) Stroke (Acute) Ischemic stroke (Acute) CVA (cerebral vascular accident) (Acute) The patient is a 67 year old CM with PMH HTN, HLD, DM, H/O Stroke (acute left MCA stroke in July 2017, TIA following CABG in January 2017), CAD s/p CABG, hypothyroidism, WILLIAN not on CPAP, H/O marijuana/cocaine abuse in the past, Ex-ETOH abuse (quit about 3 yrs ago) admitted with dizziness and right arm numbness. Per patient he had a concussion in June 2017 at work, had right shoulder and head injury, since then has been having dizziness off and on. He has been having right forearm numbness for 2 days, since 02/07/18 when he woke up with the symptom but did not get any medical advice, then yesterday (02/08/18) he was having outpatient CT chest done for chronic cough when he suddenly became dizzy, was wobbly, and was admitted since he continued to have right arm numbness for further stroke work up. NIHSS was 0 on admission per ED documentation. He was not an Ivtpa candidate. Patient also complaints of tinnitus for many years, feels his ears are sore. Complaints of dizziness since his concussion. 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 Per patient he denies any focal motor weakness, IGNACIO, visual disturbances, speech disturbances or sensory loss at present, per patient his dizziness is slightly better than before. He was on statins in the past and could not tolerate the same. MRI brain done on admission revealed acute lacunar infarct in the left IC, chronic infarct in right cerebellum and right thalamus. CTA head/neck < 50% stenosis B/L ICA Impression Acute Lacunar left IC infarct (Left MCA infarct)-likely small vessel disease Dizziness-likely peripheral etiology vs possible post-concussion syndrome Plan -Started On ASA and Plavix. Dual AP for 3 weeks then switch to single AP with Plavix. Bleeding risks discussed in detail -Pravastatin 40 mg PO q hs if not able to tolerate Lipitor -MRI brain and CTA head/neck reviewed -TTE-p -LDL-86, [id number] -30 day cardiac event recorder -Goal BP < 130/80 and goal Hba1c < 7% -Stroke risk factors discussed and stroke education provided -Vestibular therapy and ENT consult. Trial of Meclizine 12.5 mg PO q 8 hrly PRN dizziness -Fall precautions -PT/OT -GI/DVT prophylaxis -Further medical management per primary team. -Follow up with Neurology as outpatient in 2-3 weeks -Please call with questions if any -Thank you for allowing us to participate in patient's care and management Code Visit Inpatient E&M: [id number] Init Hosp L3
[2018-02-09 12:10] LABS: Hemoglobin A1c 8.1 % (4.2-6.3)
--- NOTE | 2018-02-09 12:49 | PCM.DC.SUM ---
<Guido Delong - Last Filed: 02/09/18 12:58> Discharge Date and Diagnosis Date of Admission: 02/08/18 Date of Discharge: 02/09/18 - Primary Discharge Diagnosis Acute CVA, lacunary left MCA Dizziness, possibly 2/2 peripheral or post concussive syndrome Hx of multiple strokes Hx CAD prior NSTEMI, CABG Hx Concussion DMt2 Hypothyroidism HTN - Secondary Discharge Diagnosis Chronic Problems (Last Updated 02/08/18 @ 18:05 by Bernadette Maloney MD) Open wound of scalp (Chronic) Dizziness (Chronic) Essential (primary) hypertension (Chronic) Atherosclerosis of [place] coronary artery of [place] heart without angina pectoris (Chronic) CABG- THRASHER to LAD, reverse SVG to post lateral, reverse SVG to OM 01/21/2017 Hyperlipidemia (Chronic) Diabetes mellitus (Chronic) Thyroid disorder (Chronic) Hospital Course and Treatment Imaging Results: CT/Brain/Head without Contrast IMPRESSION: Chronic involutional changes of the brain. RAD/Chest 1 View IMPRESSION: Stable increased markings at the lung bases slightly worse on the left side with blunting of the left costophrenic angle. MRI/Brain without Contrast IMPRESSION: Small acute lacunar infarct in the left internal capsule Mild atrophy and periventricular white matter ischemic changes. Chronic ischemic changes right cerebellar hemisphere normal right posterior thalamic infarct. CT/CTA Head W/WO Contrast IMPRESSION: Normal [place] without a demonstrated aneurysm or hemodynamically significant stenosis. CT/CTA Neck W/WO Contrast IMPRESSION: Atherosclerotic plaque formation at the origin of the right and left internal carotid arteries with less than 50% luminal stenosis. Echo: Interpretation Summary Moderately dilated left ventricle. The estimated ejection fraction is 45 %. Stage 1 diastolic dysfunction. There is moderate global hypokinesis of the left ventricle. Mildly dilated right ventricle. The left atrium is moderately enlarged. The right atrium is mildly enlarged. Mild (1+) posteriorly directed mitral valve insufficiency. Mild (1+) tricuspid valve insufficiency. Right ventricular systolic pressure estimated to be 37 mmHg. Mild pulmonary hypertension. Compared to echo report dated 08/03/2015, no appreciable chnages noted. Consults: Neuro - [place] Operations: None Procedures: 2-D Echocardiogram Summary of Care Provided: Hospital Course: The patient is a 67 year old M with pmhx 2 prior strokes in about the last year, concussion this past year, NSTEMI with CABG about 1 year ago, htn, hld, DMt2, who presented to the ER with c/o Right sided arm numbness and tingling with no weakness, dizziness, that started the day prior on waking up. He had CT brain which was negative, and indeterminate troponin. MRI brain was obtained - this revealed an acute left MCA infarct. Neuro was consulted and he was admitted to the PCU on cardiac monitoring Plavix was continued, aspirin added. He refused statin therapy as he has tried two that gave him severe muscle stiffness - could not walk. An echo was obtained which was unremarkable. CTA of the head and neck did not reveal significant stenosis. He was started on meclizine prn. Neuro felt the dizziness was more likely peripheral or post concussive syndrome. He may benefit from outpatient ENT referral. His symptoms improved overnight. He had no events on tele. We arranged for him to have a 30 day cardiac event monitor at [facility]. He will follow up for this with Dr. Milton. He will also need to see Dr. Yadav (neuro) 3-4 weeks, and his PCP 1-2 weeks. This patient was seen by Guido Delong PA-C under the supervision of Dr. Houston. [] - Physical Exam General: Alert, Oriented x3, Cooperative HEENT: Atraumatic, PERRLA, EOMI, Normocephalic Neck: Supple, No JVD, Negative Carotid Bruits Lungs: Clear to auscultation, Normal air movement Cardiovascular: Regular rate, No murmurs Abdomen: Bowel Sounds Present, Soft, Non Tender Extremities: No edema, Capillary Refill Less than 3 Seconds Skin: No rashes, No breakdown Musculoskeletal: No Tenderness to Palpation of Joints or Extremities Neurological: Cranial nerves II-XII grossly intact Psych/Mental Status: Normal Affect, Appropriate, Alert and oriented to time, place, person, mood and affect Vital Signs Temp Pulse Resp BP Pulse Ox 98.2 F 60 18 140/63 H 94 02/09/18 12:28 02/09/18 12:28 02/09/18 12:28 02/09/18 12:28 02/09/18 12:28 Oxygen Delivery Method Room Air Weight: 236 lb 15.951 oz Body Mass Index (BMI) 31.2 Finger Stick Blood Glucose 220 Intake and Output for Last 24 Hours 02/07/18 02/08/18 02/09/18 23:59 23:59 23:59 Intake Total 650 / 650 500 / 500 Balance 650 / 650 500 / 500 Laboratory Tests Past 24 Hrs 02/08/18 02/08/18 02/09/18 15:25 18:30 05:25 Hemoglobin A1c Troponin I 0.271 H 0.273 H Triglycerides 125 Cholesterol 147 LDL Cholesterol 86 VLDL Cholesterol 25 HDL Cholesterol 36 L 02/09/18 05:37 Hemoglobin A1c 8.1 H Troponin I Triglycerides Cholesterol LDL Cholesterol VLDL Cholesterol HDL Cholesterol POC Glucose 02/09/18 02/09/18 02/08/18 11:14 06:53 21:43 POC Glucose 222 H 129 H 211 H Discharge Diet: Low fat/ Low Cholesterol, 1800 Calorie Control Diet, 2000 mg Sodium Diet Discharge Activity: Return to Normal Activity Home Medications: Medications to take at Discharge Levothyroxine [Synthroid] 125 mcg PO DAILY 01/19/17 Multivitamin with Iron [Multivitamins with Iron] 1 ea PO DAILY 01/19/17 metformin 500 mg tablet 500 mg PO BID 03/19/17 losartan 25 mg tablet 25 mg PO DAILY 06/28/17 Insulin Human 75/25 [Humalog Mix 75-25 Kwikpen] 34 unit SC DAILY 10/06/17 Clopidogrel Bisulfate [Plavix] 75 mg PO DAILY 02/08/18 Gluc Bautista/Chondro Bautista A/Vit C/Mn [Glucosamine-Chondroitin Cap] 1 each PO 02/08/18 Insulin Human 75/25 [Humalog Mix 75-25 Kwikpen] 30 units SQ QHS 02/08/18 Metoprolol Tartrate 12.5 mg PO BID 02/08/18 Tumeric Extract 1 tab PO BID 02/08/18 Aspirin [Aspirin, Baby] 81 mg PO DAILY@0800 tab.chew 02/09/18 Meclizine HCl [Antivert] 12.5 mg PO TID PRN PRN #21 tablet 02/09/18 Following Prescrptions Were Given to Patient: Meclizine HCl [Antivert] 12.5 mg PO TID PRN PRN #21 tablet PRN Reason: Dizziness Other Amb Orders: Cardiac Holter Monitor, Set-Up [[facility]] Time Frame: 02/09/18, Location: None Selected Primary Care Physician: Ellis Fox MD [Primary Care Provider] - Please follow up with your Primary Care Physician in: 1-2 weeks Please Follow Up With: Real Yadav MD When: 3-4 weeks Please Follow Up With: Wali Milton MD When: 3-4 weeks Disposition: Home Minutes spent on discharge:: 35 Patient Condition:: Stable Medical Necessity - Tobacco Use Smoking Status: Former smoker Meaningful Use Info Meaningful Use Diagnoses (Choose all that apply): Ischemic CVA - CVA Therapy Assessed for PT,OT and/or ST?: Yes - Ischemic Stroke Antithrombotic order at d/c?: Yes Dx of Atrial fib/flutter?: No Statins at discharge?: No Reason Statin not ordered: Drug Declined by Patient Primary Dx Acute Ischemic CVA?: Yes IV tPA ordered during stay?: No Reason IV t-PA not ordered: Procedure not Indicated <Sameer Houston - Last Filed: 02/09/18 16:25> Discharge Date and Diagnosis - Secondary Discharge Diagnosis Chronic Problems (Last Updated 02/08/18 @ 18:05 by Bernadette Maloney MD) Open wound of scalp (Chronic) Dizziness (Chronic) Essential (primary) hypertension (Chronic) Atherosclerosis of [place] coronary artery of [place] heart without angina pectoris (Chronic) CABG- THRASHER to LAD, reverse SVG to post lateral, reverse SVG to OM 01/21/2017 Hyperlipidemia (Chronic) Diabetes mellitus (Chronic) Thyroid disorder (Chronic) Hospital Course and Treatment Summary of Care Provided: This patient was seen in conjunction with Guiod ROBERTO. I have independently interviewed and examined the patient and reviewed pertinent history, examination findings, laboratory and plan of management. I have reviewed the note and agree with the documented findings with the few additional points. In brief, patient is admitted for right arm numbness that was started a day before admission. No focal weakness/dysarthria/abnormal language deficit or blurry vision or loss of field of vision. Patient had previous 2 strokes in the past with residual difficulty in treating, coronary artery with non-STEMI status post CABG triple-vessel in January 2017. The patient had usable workup of stroke with CT angiogram of head and neck did not reveal hemodynamically significant stenosis or occlusion. On environmental monitoring specialist patient has PVCs but no significant arrhythmia. EKG normal sinus rhythm with first-degree AV block, right bundle branch block. MRI brain reported as small acute left internal capsule in MCA distribution. 2D echo was done and reported as moderately dilated LV, EF 45% with moderate global hypokinesis. Stage I diastolic dysfunction. Mildly dilated RV. Left atrium moderately enlarged. Right atrium mildly enlarged. Mild TR and MR. RVSP 37 mmHg. No appreciable change from previous echo of July 2015. Review of recurrent stroke, patient was recommended 30-day event monitor. Follow with Dr. Milton. Follow Dr. Yadav I have discussed my assessment with Guido ROBERTO and orders have been reviewed. Discharge medication reconciliation done. Discharge follow-up discussed with the patient Total time spent, exact 35 minutes on discharge meds reconciliation, examination, review of imaging and blood test and discussion with the patient on follow-up instructions. [] Clinical Impression(s) from Imaging Studies Brain CT 02/08/18 11:10 IMPRESSION: Chronic involutional changes of the brain. Electronically Signed: Jesus Alberto Blair MD at 12:17 EST Tel [phone], Service support , Chest X-Ray 02/08/18 11:10 IMPRESSION: Stable increased markings at the lung bases slightly worse on the left side with blunting of the left costophrenic angle. Electronically Signed: Jesus Alberto Blair MD at 12:16 EST Tel [phone], Service support , Brain MRI 02/08/18 14:12 IMPRESSION: Small acute lacunar infarct in the left internal capsule Mild atrophy and periventricular white matter ischemic changes. Chronic ischemic changes right cerebellar hemisphere normal right posterior thalamic infarct. Head CTA 02/08/18 14:13 IMPRESSION: Normal [place] without a demonstrated aneurysm or hemodynamically significant stenosis. Neck CTA 02/08/18 14:13 IMPRESSION: Atherosclerotic plaque formation at the origin of the right and left internal carotid arteries with less than 50% luminal stenosis. Subjective: Patient does not have weakness or numbness or tingling. - Physical Exam General: Alert, Oriented x3, Cooperative HEENT: Atraumatic, PERRLA, EOMI, Normocephalic Neck: Supple, No JVD, Negative Carotid Bruits Lungs: Clear to auscultation, Normal air movement Cardiovascular: Regular rate, Regular Rhythm, Normal S1, Normal S2, No murmurs, - - PVCs on environmental monitoring specialist Abdomen: Bowel Sounds Present, Soft, Non Tender, Non-Distended Extremities: No edema, Capillary Refill Less than 3 Seconds Skin: No rashes, No breakdown Musculoskeletal: No Tenderness to Palpation of Joints or Extremities, Arthritic Changes Neurological: Cranial nerves II-XII grossly intact, Deep Tendon Reflexes 2+/4 and Symmetrical, Neuro grossly intact, Motor Exam 5/5 strength throughout, - - No cerebellar signs Psych/Mental Status: Normal Affect, Appropriate Vital Signs Temp Pulse Resp BP Pulse Ox 98.2 F 60 18 140/63 H 94 02/09/18 12:28 02/09/18 12:28 02/09/18 12:28 02/09/18 12:28 02/09/18 12:28 Oxygen Delivery Method Room Air Weight: 236 lb 15.951 oz Body Mass Index (BMI) 31.2 Finger Stick Blood Glucose 220 Intake and Output for Last 24 Hours 02/07/18 02/08/18 02/09/18 23:59 23:59 23:59 Intake Total 650 / 650 500 / 500 Balance 650 / 650 500 / 500 Laboratory Tests Past 24 Hrs 02/08/18 02/09/18 02/09/18 18:30 05:25 05:37 Hemoglobin A1c 8.1 H Troponin I 0.273 H Triglycerides 125 Cholesterol 147 LDL Cholesterol 86 VLDL Cholesterol 25 HDL Cholesterol 36 L POC Glucose 02/09/18 02/09/18 02/08/18 11:14 06:53 21:43 POC Glucose 222 H 129 H 211 H Code Visit Inpatient E&M: 92322 Disch Hosp
--- NOTE | 2018-02-09 12:50 | CASEMGMT ---
Per nursing assessment pt does not have advance directives and further information on this topic was declined. GIULIANO Beckham
--- NOTE | 2018-02-09 12:56 | DS.PCM_ITS ---
Addendum entered and electronically signed by FELISA Feng 02/09/18 12:59: Code Visit Addendum: Indeterminate troponin - no chest pain throughout stay, troponin remained relatively flat. Serial EKGs without acute changes. F.u with cardiology. Original Note: <Guido Delong - Last Filed: 02/09/18 12:58> Discharge Date and Diagnosis Date of Admission: 02/08/18 Date of Discharge: 02/09/18 - Primary Discharge Diagnosis Acute CVA, lacunary left MCA Dizziness, possibly 2/2 peripheral or post concussive syndrome Hx of multiple strokes Hx CAD prior NSTEMI, CABG Hx Concussion DMt2 Hypothyroidism HTN - Secondary Discharge Diagnosis Chronic Problems (Last Updated 02/08/18 @ 18:05 by Bernadette Maloney MD) Open wound of scalp (Chronic) Dizziness (Chronic) Essential (primary) hypertension (Chronic) Atherosclerosis of [place] coronary artery of [place] heart without angina pectoris (Chronic) CABG- THRASHER to LAD, reverse SVG to post lateral, reverse SVG to OM 01/21/2017 Hyperlipidemia (Chronic) Diabetes mellitus (Chronic) Thyroid disorder (Chronic) Hospital Course and Treatment Imaging Results: CT/Brain/Head without Contrast IMPRESSION: Chronic involutional changes of the brain. RAD/Chest 1 View IMPRESSION: Stable increased markings at the lung bases slightly worse on the left side with blunting of the left costophrenic angle. MRI/Brain without Contrast IMPRESSION: Small acute lacunar infarct in the left internal capsule Mild atrophy and periventricular white matter ischemic changes. Chronic ischemic changes right cerebellar hemisphere normal right posterior thalamic infarct. CT/CTA Head W/WO Contrast IMPRESSION: Normal [place] without a demonstrated aneurysm or hemodynamically significant stenosis. CT/CTA Neck W/WO Contrast IMPRESSION: Atherosclerotic plaque formation at the origin of the right and left internal carotid arteries with less than 50% luminal stenosis. Echo: Interpretation Summary Moderately dilated left ventricle. The estimated ejection fraction is 45 %. Stage 1 diastolic dysfunction. There is moderate global hypokinesis of the left ventricle. Mildly dilated right ventricle. The left atrium is moderately enlarged. The right atrium is mildly enlarged. Mild (1+) posteriorly directed mitral valve insufficiency. Mild (1+) tricuspid valve insufficiency. Right ventricular systolic pressure estimated to be 37 mmHg. Mild pulmonary hypertension. Compared to echo report dated 08/03/2015, no appreciable chnages noted. Consults: Jerri - [place] Operations: None Procedures: 2-D Echocardiogram Summary of Care Provided: Hospital Course: The patient is a 67 year old M with pmhx 2 prior strokes in about the last year, concussion this past year, NSTEMI with CABG about 1 year ago, htn, hld, DMt2, who presented to the ER with c/o Right sided arm numbness and tingling with no weakness, dizziness, that started the day prior on waking up. He had CT brain which was negative, and indeterminate troponin. MRI brain was obtained - this revealed an acute left MCA infarct. Neuro was consulted and he was admitted to the PCU on cardiac monitoring Plavix was continued, aspirin added. He refused statin therapy as he has tried two that gave him severe muscle stiffness - could not walk. An echo was obtained which was unremarkable. CTA of the head and neck did not reveal significant stenosis. He was started on meclizine prn. Neuro felt the dizziness was more likely peripheral or post concussive syndrome. He may benefit from outpatient ENT referral. His symptoms improved overnight. He had no events on tele. We arranged for him to have a 30 day cardiac event monitor at [place]. He will follow up for this with Dr. Milton. He will also need to see Dr. Yadav (neuro) 3-4 weeks, and his PCP 1-2 weeks. This patient was seen by Guido Delong PA-C under the supervision of Dr. Houston. [] - Physical Exam General: Alert, Oriented x3, Cooperative HEENT: Atraumatic, PERRLA, EOMI, Normocephalic Neck: Supple, No JVD, Negative Carotid Bruits Lungs: Clear to auscultation, Normal air movement Cardiovascular: Regular rate, No murmurs Abdomen: Bowel Sounds Present, Soft, Non Tender Extremities: No edema, Capillary Refill Less than 3 Seconds Skin: No rashes, No breakdown Musculoskeletal: No Tenderness to Palpation of Joints or Extremities Neurological: Cranial nerves II-XII grossly intact Psych/Mental Status: Normal Affect, Appropriate, Alert and oriented to time, place, person, mood and affect Vital Signs Temp Pulse Resp BP Pulse Ox 98.2 F 60 18 140/63 H 94 02/09/18 12:28 02/09/18 12:28 02/09/18 12:28 02/09/18 12:28 02/09/18 12:28 Oxygen Delivery Method Room Air Weight: 236 lb 15.951 oz Body Mass Index (BMI) 31.2 Finger Stick Blood Glucose 220 Intake and Output for Last 24 Hours 02/07/18 02/08/18 02/09/18 23:59 23:59 23:59 Intake Total 650 / 650 500 / 500 Balance 650 / 650 500 / 500 Laboratory Tests Past 24 Hrs 02/08/18 02/08/18 02/09/18 15:25 18:30 05:25 Hemoglobin A1c Troponin I 0.271 H 0.273 H Triglycerides 125 Cholesterol 147 LDL Cholesterol 86 VLDL Cholesterol 25 HDL Cholesterol 36 L 02/09/18 05:37 Hemoglobin A1c 8.1 H Troponin I Triglycerides Cholesterol LDL Cholesterol VLDL Cholesterol HDL Cholesterol POC Glucose 02/09/18 02/09/18 02/08/18 11:14 06:53 21:43 POC Glucose 222 H 129 H 211 H Discharge Diet: Low fat/ Low Cholesterol, 1800 Calorie Control Diet, 2000 mg Sodium Diet Discharge Activity: Return to Normal Activity Home Medications: Medications to take at Discharge Levothyroxine [Synthroid] 125 mcg PO DAILY 01/19/17 Multivitamin with Iron [Multivitamins with Iron] 1 ea PO DAILY 01/19/17 metformin 500 mg tablet 500 mg PO BID 03/19/17 losartan 25 mg tablet 25 mg PO DAILY 06/28/17 Insulin Human 75/25 [Humalog Mix 75-25 Kwikpen] 34 unit SC DAILY 10/06/17 Clopidogrel Bisulfate [Plavix] 75 mg PO DAILY 02/08/18 Gluc Bautista/Chondro Bautista A/Vit C/Mn [Glucosamine-Chondroitin Cap] 1 each PO 02/08/18 Insulin Human 75/25 [Humalog Mix 75-25 Kwikpen] 30 units SQ QHS 02/08/18 Metoprolol Tartrate 12.5 mg PO BID 02/08/18 Tumeric Extract 1 tab PO BID 02/08/18 Aspirin [Aspirin, Baby] 81 mg PO DAILY@0800 tab.chew 02/09/18 Meclizine HCl [Antivert] 12.5 mg PO TID PRN PRN #21 tablet 02/09/18 Following Prescrptions Were Given to Patient: Meclizine HCl [Antivert] 12.5 mg PO TID PRN PRN #21 tablet PRN Reason: Dizziness Other Amb Orders: Cardiac Holter Monitor, Set-Up [[facility]] Time Frame: 02/09/18, Location: None Selected Primary Care Physician: Ellis Fox MD [Primary Care Provider] - Please follow up with your Primary Care Physician in: 1-2 weeks Please Follow Up With: Real Yadav MD When: 3-4 weeks Please Follow Up With: Wali Milton MD When: 3-4 weeks Disposition: Home Minutes spent on discharge:: 35 Patient Condition:: Stable Medical Necessity - Tobacco Use Smoking Status: Former smoker Meaningful Use Info Meaningful Use Diagnoses (Choose all that apply): Ischemic CVA - CVA Therapy Assessed for PT,OT and/or ST?: Yes - Ischemic Stroke Antithrombotic order at d/c?: Yes Dx of Atrial fib/flutter?: No Statins at discharge?: No Reason Statin not ordered: Drug Declined by Patient Primary Dx Acute Ischemic CVA?: Yes IV tPA ordered during stay?: No Reason IV t-PA not ordered: Procedure not Indicated <Sameer Houston - Last Filed: 02/09/18 16:25> Discharge Date and Diagnosis - Secondary Discharge Diagnosis Chronic Problems (Last Updated 02/08/18 @ 18:05 by Bernadette Maloney MD) Open wound of scalp (Chronic) Dizziness (Chronic) Essential (primary) hypertension (Chronic) Atherosclerosis of [place] coronary artery of [place] heart without angina pectoris (Chronic) CABG- THRASHER to LAD, reverse SVG to post lateral, reverse SVG to OM 01/21/2017 Hyperlipidemia (Chronic) Diabetes mellitus (Chronic) Thyroid disorder (Chronic) Hospital Course and Treatment Summary of Care Provided: This patient was seen in conjunction with Guido ROBERTO. I have independently interviewed and examined the patient and reviewed pertinent history, examination findings, laboratory and plan of management. I have reviewed the note and agree with the documented findings with the few additional points. In brief, patient is admitted for right arm numbness that was started a day before admission. No focal weakness/dysarthria/abnormal language deficit or blurry vision or loss of field of vision. Patient had previous 2 strokes in the past with residual difficulty in treating, coronary artery with non-STEMI status post CABG triple-vessel in January 2017. The patient had usable workup of stroke with CT angiogram of head and neck did not reveal hemodynamically significant stenosis or occlusion. On manager cardiac patient has PVCs but no significant arrhythmia. EKG normal sinus rhythm with first-degree AV block, right bundle branch block. MRI brain reported as small acute left internal capsule in MCA distribution. 2D echo was done and reported as moderately dilated LV, EF 45% with moderate global hypokinesis. Stage I diastolic dysfunction. Mildly dilated RV. Left atrium moderately enlarged. Right atrium mildly enlarged. Mild TR and MR. RVSP 37 mmHg. No appreciable change from previous echo of July 2015. Review of recurrent stroke, patient was recommended 30-day event monitor. Follow with Dr. Milton. Follow Dr. Yadav I have discussed my assessment with Guido ROBERTO and orders have been reviewed. Discharge medication reconciliation done. Discharge follow-up discussed with the patient Total time spent, exact 35 minutes on discharge meds reconciliation, examination, review of imaging and blood test and discussion with the patient on follow-up instructions. [] Clinical Impression(s) from Imaging Studies Brain CT 02/08/18 11:10 IMPRESSION: Chronic involutional changes of the brain. Electronically Signed: Jesus Alberto Blair MD at 12:17 EST Tel [phone], Service support , Chest X-Ray 02/08/18 11:10 IMPRESSION: Stable increased markings at the lung bases slightly worse on the left side with blunting of the left costophrenic angle. Electronically Signed: Jesus Alberto Blair MD at 12:16 EST Tel [phone], Service support , Brain MRI 02/08/18 14:12 IMPRESSION: Small acute lacunar infarct in the left internal capsule Mild atrophy and periventricular white matter ischemic changes. Chronic ischemic changes right cerebellar hemisphere normal right posterior thalamic infarct. Head CTA 02/08/18 14:13 IMPRESSION: Normal [place] without a demonstrated aneurysm or hemodynamically significant stenosis. Neck CTA 02/08/18 14:13 IMPRESSION: Atherosclerotic plaque formation at the origin of the right and left internal carotid arteries with less than 50% luminal stenosis. Subjective: Patient does not have weakness or numbness or tingling. - Physical Exam General: Alert, Oriented x3, Cooperative HEENT: Atraumatic, PERRLA, EOMI, Normocephalic Neck: Supple, No JVD, Negative Carotid Bruits Lungs: Clear to auscultation, Normal air movement Cardiovascular: Regular rate, Regular Rhythm, Normal S1, Normal S2, No murmurs, - - PVCs on manager cardiac Abdomen: Bowel Sounds Present, Soft, Non Tender, Non-Distended Extremities: No edema, Capillary Refill Less than 3 Seconds Skin: No rashes, No breakdown Musculoskeletal: No Tenderness to Palpation of Joints or Extremities, Arthritic Changes Neurological: Cranial nerves II-XII grossly intact, Deep Tendon Reflexes 2+/4 and Symmetrical, Neuro grossly intact, Motor Exam 5/5 strength throughout, - - No cerebellar signs Psych/Mental Status: Normal Affect, Appropriate Vital Signs Temp Pulse Resp BP Pulse Ox 98.2 F 60 18 140/63 H 94 02/09/18 12:28 02/09/18 12:28 02/09/18 12:28 02/09/18 12:28 02/09/18 12:28 Oxygen Delivery Method Room Air Weight: 236 lb 15.951 oz Body Mass Index (BMI) 31.2 Finger Stick Blood Glucose 220 Intake and Output for Last 24 Hours 02/07/18 02/08/18 02/09/18 23:59 23:59 23:59 Intake Total 650 / 650 500 / 500 Balance 650 / 650 500 / 500 Laboratory Tests Past 24 Hrs 02/08/18 02/09/18 02/09/18 18:30 05:25 05:37 Hemoglobin A1c 8.1 H Troponin I 0.273 H Triglycerides 125 Cholesterol 147 LDL Cholesterol 86 VLDL Cholesterol 25 HDL Cholesterol 36 L POC Glucose 02/09/18 02/09/18 02/08/18 11:14 06:53 21:43 POC Glucose 222 H 129 H 211 H Code Visit Inpatient E&M: 47313 Disch Hosp
== END 2018-02-09 12:31 | disposition home or self-care (01) | DRG 66 ==
LOC: ED 11:26 → PCU 17:32
PROVIDERS: Psychiatry & Neurology Neurology; Admitting Provider Hospitalist; Emergency Provider Emergency Medicine; Family Provider Family Medicine; PCP Family Medicine; Visit Provider Internal Medicine
DX: I63.512 Cerebral infarction due to unspecified occlusion or stenosis of left middle cerebral artery (principal); I25.10 Atherosclerotic heart disease of native coronary artery without angina pectoris; R20.0 Anesthesia of skin; R29.700 NIHSS score 0; F07.81 Postconcussional syndrome; I10 Essential (primary) hypertension; E11.9 Type 2 diabetes mellitus without complications; R42 Dizziness and giddiness; E03.9 Hypothyroidism, unspecified; E66.9 Obesity, unspecified; I25.2 Old myocardial infarction; Z95.1 Presence of aortocoronary bypass graft; Z79.02 Long term (current) use of antithrombotics/antiplatelets; Z79.4 Long term (current) use of insulin; Z87.891 Personal history of nicotine dependence; Z68.31 Body mass index [BMI] 31.0-31.9, adult; I69.398 Other sequelae of cerebral infarction; E78.5 Hyperlipidemia, unspecified
CPT/HCPCS: 36415; 70450; 70496; 70498; 70551; 71045; 80048; 80061; 82962; 83036; 83735; 84484; 85025; 85610; 85730; 93005; 93306; 97162; 97165; 97802; 99283; J7030; Q9967; A4216

== ENCOUNTER → 2018-03-29 10:40 | Outpatient (CLI) | payer OTHER, SELFPAY ==
[2018-03-29 13:22] VITALS: BMI 31.2
[2018-03-29 15:19] LABS: Prothrombin Time (Protime)PT. 13.1 SECONDS (11.7-14.9)
[2018-03-29 15:20] LABS: Partial Thromboplast Time 31.2 Seconds (24.1-36.2)
[2018-03-29 15:21] LABS: Absolute Lymphocyte Count 1.83 X10^3/ul (0.83-4.51); Absolute Neutrophil Count 3.9 X10^3/uL (2.0-7.7); Basophil# 0.03 X10^3/uL; Basophil% 0.5 % (0-1); Eosinophil# 0.17 X10^3/uL; Eosinophils% 2.6 % (0-5); Hematocrit 43.3 % (40-54); Hemoglobin 13.8 g/dl (13.0-16.5); Lymphocyte # 1.83 X10^3/ul (4.0); Lymphocyte % 28.1 % (19-41); Mean Corp Hgb Conc 31.9 g/gl (32-36); Mean Corpuscular Hgb 28.3 pg (27.0-32.0); Mean Corpuscular Volume 88.9 fL (80-94); Mean Platelet Vol. 11.5 fl (6.2-12.0); Monocyte# 0.57 X10^3/uL; Monocyte% 8.8 % (0-10); Neutrophil # 3.89 X10^3/uL (2.7-7.7); Neutrophil % 59.7 % (47-70); Platelet Count 181 K/mm3 (150-450); RBC Distribution Width CV 14.9 % (11.6-14.6); RBC Distribution Width SD 47.9 fl (35.1-43.9); Red Blood Count 4.87 M/mm3 (4.6-6.2); White Blood Count 6.5 K/mm3 (4.4-11.0)
[2018-03-29 15:22] LABS: POSITIVE COUNT NO; POSITIVE DIFFERENTIAL NO; POSITIVE MORPHOLOGY NO
[2018-03-29 15:30] LABS: Anion Gap 8 (5-15); BUN 21 mg/dL (7-18); BUN/Creat Ratio 18.8 RATIO (10-20); Calcium,Total 8.6 mg/dL (8.5-10.1); Chloride 109 mmol/L (98-107); Creatinine, Serum 1.12 mg/dL (0.70-1.30); EST Glomerular Filtration Rate 69 mL/min (>60); Est Glom Filt Rate - Afr Amer 84 mL/min (>60); Glucose 184 mg/dL (74-106); Potassium 4.3 mmol/L (3.5-5.1); Sodium Level 142 mmol/L (136-145)
[2018-04-18 11:28] VITALS: BMI 31.9
== END ==
PROVIDERS: Nurse Practitioner Family; Family Provider Family Medicine; PCP Family Medicine; Referring Provider Internal Medicine Cardiovascular Disease; Visit Provider Internal Medicine Cardiovascular Disease
DX: I25.10 Atherosclerotic heart disease of native coronary artery without angina pectoris (principal); I47.2 Ventricular tachycardia; Z95.1 Presence of aortocoronary bypass graft; I10 Essential (primary) hypertension; E78.5 Hyperlipidemia, unspecified; E11.9 Type 2 diabetes mellitus without complications
CPT/HCPCS: 36415; 80048; 85025; 85610; 85730

== ENCOUNTER → 2018-04-07 07:33 | Outpatient (CLI) | payer OTHER, SELFPAY ==
[2018-03-29 15:03] VITALS: BMI 31.2
[2018-04-07 09:17] LABS: Anion Gap 8 (5-15); BUN 24 mg/dL (7-18); BUN/Creat Ratio 17.9 RATIO (10-20); Chloride 103 mmol/L (98-107); Creatinine, Serum 1.34 mg/dL (0.70-1.30); EST Glomerular Filtration Rate 56 mL/min (>60); Est Glom Filt Rate - Afr Amer 68 mL/min (>60); Glucose 153 mg/dL (74-106); Potassium 4.1 mmol/L (3.5-5.1); Sodium Level 140 mmol/L (136-145)
--- OUTSIDE RECORDS SUMMARY | 2018-06-11 20:00 | XMS RPT_ITS ---
:1950 Author Organization OHIP Support Name Relationship Address Phone DEBO RAHMAN Unavailable [address] + [address] [place] [address] [employer] Unavailable [address] + [place] [address] DEBO RAHMAN Unavailable [address] + [address] [place] [address] [employer] Unavailable [address] + [place] [address] MATHEW GUORU Unavailable [address] + [address] [place] [address] CLOYS, GUORU Unavailable [address] + [address] [place] [address] DEBO RAHMAN Unavailable [address] + [address] [place] [address] [employer] Unavailable [address] + [place] [address] DEBO RAHMAN Unavailable [address] + [address] [place] [address] [employer] Unavailable [address] + [place] [address] NAZ RAHMANRU Unavailable [address] + [address] [place] [address] [employer] Unavailable [address] + [place] [address] NAZ RAHMANRU Unavailable [address] + [address] [place] [address] [employer] Unavailable [address] + [place] [address] DEBO RAHMAN Unavailable [address] + [address] [place] [address] [employer] Unavailable [address] + [place] [address] DEBO RAHMAN Unavailable [address] + [address] [place] [address] [employer] Unavailable [address] + [place] [address] DEBO RAHMAN Unavailable [address] + [address] [place] [address] [employer] Unavailable [address] + [place] [address] DEBO RAHMAN Unavailable [address] + [address] [place] [address] [employer] Unavailable [address] + [place] [address] DEBO RAHMAN Unavailable [address] + [address] [place] [address] [employer] Unavailable [address] + [place] [address] DEBO RAHMAN Unavailable [address] + [address] [place] [address] [employer] Unavailable [address] + [place] [address] DEBO RAHMAN Unavailable [address] + [address] [place] [address] [employer] Unavailable [address] + [place] [address] DEBO RAHMAN Unavailable [address] + [address] [place] [address] [employer] Unavailable [address] + [place] [address] DEBO RAHMAN Unavailable [address] + [address] [place] [address] [employer] Unavailable [address] + [place] [address] NAZ RAHMANRU Unavailable [address] + [address] [place] [address] [employer] Unavailable [address] + [place] [address] LACEY NAZRU Unavailable [address] + [address] [place] [address] [employer] Unavailable [address] + [place] [address] NAZ RAHMANRU Unavailable [address] + [address] [place] [address] [employer] Unavailable [address] + [place] [address] Debo Rahman Unavailable Unavailable Unavailable Debo Rahman Unavailable Unavailable Unavailable DEBO RAHMAN Unavailable [address] + [address] [place] [address] [employer] Unavailable [address] + [place] [address] LACEY DEBO Unavailable [address] + [address] [place] [address] [employer] Unavailable [address] + [place] [address] DEBO RAHMAN Unavailable [address] + [address] [place] [address] [employer] Unavailable [address] + [place] [address] DEBO RAHMAN Unavailable [address] + [address] [place] [address] [employer] Unavailable [address] + [place] [address] DBEO RAHMAN Unavailable [address] + [address] [place] [address] USPS Unavailable [address] + [place] [address] DEBO RAHMAN Unavailable [address] + [address] [place] [address] USPS Unavailable [address] + [place] [address] DEBO RAHMAN Unavailable [address] + [address] [place] [address] USPS Unavailable [address] + [place] [address] DEBO RAHMAN Unavailable [address] + [address] [place] [address] USPS Unavailable [address] + [place] [address] Care Team Providers Name Role Phone JENNIFER NOBLE (ROVERTO) Attending Unavailable ELLIS DE LUNA A Referring Unavailable CARRIE FERNÁNDEZ (PA) Attending Unavailable ELLIS DE LUNA A Referring Unavailable ELLENELLIS LEWIS A Attending Unavailable ELLIS DE LUNA A Attending Unavailable ELLEN, ELLIS A Referring Unavailable JENNIFER NOBLE (RVOERTO) Referring Unavailable ELLENELLIS LEWIS A Referring Unavailable ELLIS DE LUNA Attending Unavailable ELLIS DE LUNA A Referring Unavailable ELLENBRITNEY LEWISREY A Referring Unavailable ELLENELLIS LEWIS A Referring Unavailable ELLENELLIS LEWIS A Attending Unavailable ELLEN, ELLIS A Referring Unavailable ELLEN ELLIS A Referring Unavailable ELLEN, ELLIS A Referring Unavailable CARRIE FERNÁNDEZ (PA) Attending Unavailable ELLEN, ELLIS A Referring Unavailable THORLORI LÓPEZ (CORE STRIPPER) Attending Unavailable ELLEN ELLIS A Referring Unavailable THORMARIBEL LORI (CORE STRIPPER) Referring Unavailable THORMARIBEL LORI (CORE STRIPPER) Referring Unavailable THORLORI LÓPEZ (CORE STRIPPER) Referring Unavailable ELLENELLIS LEWIS A Attending Unavailable ELLEN ELLIS A Referring Unavailable LOIR JEAN-BAPTISTE (CORE STRIPPER) Referring Unavailable DAYANA AGUIRRE MD Attending Unavailable ELLEN JEONG, ELLIS Medrano Primary Care Unavailable LUCIE VALIENTE MD Consulting Unavailable LUCIE VALIENTE MD Admitting Unavailable LUCIE VALIENTE MD Attending Unavailable ELLEN JEONG, ELLIS Medrano Primary Care Unavailable ELLEN JEONG, ELLIS Medrano Consulting Unavailable KIARRA JEONG MD. PHILIP Corrigan Consulting Unavailable MOUNA JEONG, DR. JURADO Consulting Unavailable PARK JEONG, DR. COSMO Baptiste Consulting Unavailable ELISE MARTIN MD Consulting Unavailable UMA EM Attending Unavailable Ellis De Luna Referring Unavailable Ellis De Luna Primary Care Unavailable Ellis De Luna Referring Unavailable Ellen, Ellis Primary Care Unavailable Harish Rodriguez Attending Unavailable LESLI PRINCE Attending Unavailable LESLI PRINCE Referring Unavailable Ellen, Ellis Primary Care Unavailable Wali Milton Attending Unavailable Ellen, Ellis Primary Care Unavailable Ellen, Ellis Primary Care Unavailable LESLI PRINCE Consulting Unavailable Haagen, Jennifer Attending Unavailable Haagen, Jennifer Referring Unavailable Celso, Sameer Admitting Unavailable Paintsil, Walling Attending Unavailable Ellen, Ellis Primary Care Unavailable Vicenta, Real S. Consulting Unavailable Paintsil, Walling Consulting Unavailable Sindi, Guido Attending Unavailable Sindi, Guido Referring Unavailable Ellen, Ellis Primary Care Unavailable Wali Milton Attending Unavailable Wali Milton Referring Unavailable Ellen, Ellis Primary Care Unavailable Jesús Hensley Consulting Unavailable Forrest Guo Attending Unavailable Ashelfah, Ghasem Referring Unavailable Ashelfah, Ghasem Admitting Unavailable Sindi, Guido Attending Unavailable Ellen, Ellis Primary Care Unavailable Vicenta, Real S. Consulting Unavailable Celso, Sameer Consulting Unavailable Ashelfah, Ghasem Admitting Unavailable Sindi, Guido Attending Unavailable Ellen, Ellis Primary Care Unavailable Vicenta, Real S. Consulting Unavailable Ashelfah, Ghasem Consulting Unavailable Ellen, Ellis Primary Care Unavailable Ashelfah, Ghasem Admitting Unavailable Vicenta, Real S. Consulting Unavailable Celso, Sameer Attending Unavailable Esha, Efewongbe Attending Unavailable Ellen, Ellis Primary Care Unavailable Esha Efewongbe Attending Unavailable Ellen, Ellis Primary Care Unavailable Kenya Balbuenaongbe Attending Unavailable Ellen, Ellis Primary Care Unavailable Wali Milton Attending Unavailable Celso, Sameer Referring Unavailable Baron Veliz Attending Unavailable Paintsil, Walling Referring Unavailable Paintsil, Walling Attending Unavailable Paintsil, Walling Referring Unavailable Ellen, Ellis Primary Care Unavailable Jesús Hensley Attending Unavailable Ellen, Ellis Referring Unavailable Ellen, Ellis Primary Care Unavailable Sahara Liu Attending Unavailable Wali Milton Attending Unavailable Ellen, Ellis Primary Care Unavailable Marilyn Stephens Attending Unavailable Ellen, Ellis Referring Unavailable Jesús Hensley Attending Unavailable Ellen, Ellis Referring Unavailable Moodispaw, Wali Attending Unavailable Ellen, Ellis Primary Care Unavailable Moodisfelisaw, Wali Attending Unavailable Ellis De Luna Primary Care Unavailable Forrest Guo Attending Unavailable Forrest Guo Referring Unavailable Celso, Sameer Admitting Unavailable Celso, Sameer Attending Unavailable Ellis De Luna Primary Care Unavailable Vicenta, Real S. Consulting Unavailable Celso, Sameer Consulting Unavailable Ellis De Luna Primary Care Unavailable Celso, Sameer Admitting Unavailable Vicenta, Real S. Consulting Unavailable Paintsil, Walling Attending Unavailable PROBLEMS PROBLEMS DATE TYPE CONDITION / CODE ATTENDING STATUS SOURCE Unknown Z95.1 - Presence of Moodispaw, Active [place] 9 aortocoronary bypass [facility] graft / Z95.1(ICD-10) Hospital Repository Unknown E11.9 - Type 2 Moodispaw, Active [place] 9 diabetes mellitus [facility] without complications Hospital / E11.9(ICD-10) Repository Unknown E78.5 - Moodispaw, Active [place] 9 Hyperlipidemia, [facility] unspecified / Hospital E78.5(ICD-10) Repository Unknown I10 - Essential Moodispaw, Active [place] 9 (primary) hypertension [facility] / I10(ICD-10) Hospital Repository Unknown I25.10 - Moodispaw, Active [place] 9 Atherosclerotic heart [facility] disease of [facility] coronary artery Repository without angina pectoris / I25.10(ICD-10) Unknown I47.2 - Ventricular Moodispaw, Active [place] 9 tachycardia / [facility] I47.2(ICD-10) Hospital Repository Active Right upper quadrant NA Active [place] 8 pain / R10.11(ICD-10) Clinic Main [place] Repository Unknown I63.9 - Cerebral Forrest Guo Active [place] 9 infarction, Community unspecified / Hospital I63.9(ICD-10) Repository Active Other nonspecific NA Active [place] 8 abnormal finding of Clinic Main lung field / [place] R91.8(ICD-10) Repository Active Personal history of NA Active [place] 7 nicotine dependence / Clinic Main Z87.891(ICD-10) [place] Repository Active Iron deficiency NA [facility] 8 anemia, unspecified / Clinic Main D50.9(ICD-10) [place] Rep[facility] Active Atherosclerotic heart [facility] 8 disease of chitina [facility] Main coronary artery [place] without angina Repository pectoris / I25.10(ICD-10) Active Coronary NA [facility] 8 atherosclerosis due to [facility] Main lipid rich plaque / [place] I25.83(ICD-10) Repository Active Type 2 diabetes NA [facility] 8 mellitus with Clinic Main hyperglycemia / [place] E11.65(ICD-10) Repository Active [facility] (current) NA [facility] 8 use of insulin / [facility] Main Z79.4(ICD-10) [place] Rep[facility] Active Type 2 diabetes [facility] 8 mellitus with diabetic [facility] Main neuropathy, [place] unspecified / Repository E11.40(ICD-10) Unknown S01.03XA - Puncture Oleghe, Active [place] 8 wound without foreign Efewongbe Community body of scalp, initial Hospital encounter / Repository S01.03XA(ICD-10) Active Anemia, unspecified / [facility] 8 D64.9(ICD-10) Clinic Main [place] Repository Active Encounter for NA [facility] 8 screening for [facility] Main malignant neoplasm of [place] colon / Z12.11(ICD-10) Repository Active Other 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 designer [facility] 8 (current) drug therapy [facility] Main / Z79.899(ICD-10) [place] Repository Unknown Z86.73 - Personal Paintsil, Walling Active [place] 8 history of transient Community ischemic attack (TIA), Hospital and cerebral Repository infarction without residual deficits / Z86.73(ICD-10) Unknown R94.31 - Abnormal Moodispaw, Active [place] 8 electrocardiogram [facility] [ECG] [EKG] / Hospital R94.31(ICD-10) Repository Admitting Concussion w loss [facility] Diagnosis consciousness of unsp System duration, init / Repository S06.0X9A(ICD-10) Admitting Laceration without Harish Rodriguez [facility] 8 Diagnosis foreign body of scalp, System initial encounter / Repository S01.01XA(ICD-10) Admitting Pain in left shoulder Harish Rodriguez [facility] 8 Diagnosis / M25.512(ICD-10) System Repository Admitting Abrasion of left Meredith Rodriguezshua [facility] 8 Diagnosis wrist, initial System encounter / Repository S60.812A(ICD-10) Admitting Abrasion of left Harish Rodriguez [facility] 8 Diagnosis shoulder, initial System encounter / Repository S40.212A(ICD-10) Admitting Umbilical hernia Meredith Rodriguezshua [facility] 8 Diagnosis without obstruction or System gangrene / Repository K42.9(ICD-10) Admitting Allergy status to oth Harish Rodriguez [facility] 8 Diagnosis drug/meds/biol subst System status / Z88.8(ICD-10) Repository Admitting Atherosclerosis of Meredith Rodriguezshua [facility] 8 Diagnosis CABG w/o angina System pectoris / Repository I25.810(ICD-10) Admitting Hyperlipidemia, Meredith Rodriguezshua [facility] 8 Diagnosis unspecified / System E78.5(ICD-10) Repository Admitting Type 2 diabetes Meredith Rodriguezshua [facility] 8 Diagnosis mellitus without System complications / Repository E11.9(ICD-10) Admitting Essential (primary) Meredith Rodriguezshua [facility] 8 Diagnosis hypertension / System I10(ICD-10) Repository Admitting Contact with other Harish Rodriguez [facility] 8 Diagnosis specified machinery, System initial encounter / Repository W31.89XA(ICD-10) Admitting Civilian activity done Harish Rodriguez [facility] 8 Diagnosis for income or pay / System Y99.0(ICD-10) Repository Admitting Unspecified injury of Meredith Rodriguezshua [facility] 8 Diagnosis head, initial System encounter / Repository S09.90XA(ICD-10) Unknown G47.33 - Obstructive Haagen, Active [place] 8 sleep apnea (adult) [facility] (pediatric) / Hospital G47.33(ICD-10) Repository Active Essential (primary) NA Active [place] 6 hypertension / Clinic Main I10(ICD-10) [place] Repository Active Encounter for NA Active [place] 5 screening for Clinic Main malignant neoplasm of [place] prostate / Repository Z12.5(ICD-10) Active Mixed hyperlipidemia / NA Active [place] 5 E78.2(ICD-10) [facility] Main [place] Repository Active Hypothyroidism, NA Active [place] 5 unspecified / Clinic Main E03.9(ICD-10) [place] Rep[facility] Active Myalgia / NA Active [place] 8 M79.1(ICD-10) [facility] Main [place] Repository Unknown Z00.00 - Encounter for Moodispaw, Active [place] 8 [facility] Community examination without Hospital abnormal findings / Repository Z00.00(ICD-10) PROCEDURES PROCEDURES No Procedure Records FoundRESULTS RESULTS PROGRESS Observed: 04/12/2018 Status: COMPLETED Source: [place] 7:24 AM [facility] REPOSITORY HNO ID: [id number] Author: Katie Martin Service: (none) Author Type: Mat Making Machine Tender Type: Progress Notes Filed: 04/12/2018 7:25 AM Note Text: Radiology Service Progress Note PATIENT NAME: Micky Roldan DATE OF SERVICE: April 12, 2018 TIME: 7:24 AM PATIENT IDENTITY VERIFICATION COMPLETED USING TWO (2) METHODS: Patient confirmed name verbally and Date of . PATIENT GENDER DATA: Male PATIENT RELEVANT IMPLANT DATA REVIEWED: Not Applicable RADIOLOGY DEPARTMENT: Ultrasound PERIPHERAL IV DATA: Not applicable SIGNED BY: KATIE MARTIN RDMS Ken April 12, 2018 7:24 AM US ABD RIGHT UPPER Observed: 04/12/2018 Status: F Source: [facility] 7:24 AM [facility] REPOSITORY * * *Final Report* * * DATE OF EXAM: Apr 12 2018 7:24AM [facility] 1032 - US ABD RIGHT UPPER QUADRANT / PROCEDURE REASON: RUQ pain * * * * Physician Interpretation * * * * EXAMINATION: RIGHT UPPER QUADRANT ULTRASOUND CLINICAL HISTORY: RUQ pain TECHNIQUE: Sonography of the right upper quadrant was performed. Images were obtained and stored in a permanent archive. MQ: URUQ_1 COMPARISON: None. RESULT: Pancreas: Normal sonographic appearance. Portions obscured: tail Liver: Echotexture: Normal, homogeneous. Echogenicity: Heterogeneous Surface contour: Smooth Lesions: None. Biliary: No intrahepatic biliary duct dilation. CBD: 0.4 cm at the hilum. Gallbladder: Normal caliber -Contents: No cholelithiasis -Wall: Normal -Other: No pericholecystic fluid. Right Kidney: No hydronephrosis. The right kidney measures approximately 10.9 cm. Ascites: None. IMPRESSION: No cholelithiasis convincing sonographic evidence for acute cholecystitis. Heterogeneous liver echotexture, without focal hepatic lesion. Associate Designer: PSCB Transcribe Date/Time: Apr 12 2018 8:02A Dictated by : HEIDI GAUTHIER MD This examination was interpreted and the report reviewed and electronically signed by: HEIDI GAUTHIER MD on Apr 12 2018 8:03AM EST [id number] OBSOLETE Observed: 04/12/2018 Status: COMPLETED Source: [place] 12:00 AM [facility] REPOSITORY [facility] MICKY ROLDAN ([id number]) 1950 M Date Time Provider Department 04/12/18 [facility] During your visit today, we recorded the following information about you: Laura Hernandez Ma 04/12/2018 2:18 PM Signed Patient has been identified by name and date of : Yes Pending Prescriptions Disp Refills INSULIN LISPRO AND LISPRO PROT (HUM) 100 UNIT/ML (75-25) SUSP, SUB-Q PEN Si units in AM and 30 units in the PM DANAY: No RX INSTRUCTIONS: Patient aware RX will be sent to pharmacy. No need to notify patient. Laura Hernandez Ma Last ov: 03/2018 Nov: 05/2018 Allergies As of Date: 04/12/2018 Noted Allergy Reaction CRESTOR (ROSUVASTATIN CALCIUM) 09/07/2017 17 - Myalgia LANOLIN 02/15/2008 9 - Itching LIPITOR (ATORVASTATIN CALCIUM) 09/07/2017 17 - Myalgia Date Reviewed: 04/08/2018 Reviewed by: Ellis De Luna - Fully Assessed Reason for Visit: Refill Request [94] Order(s):insulin 75/25 lispro protamine/lispro units/mL (HUMALOG MIX 75-25 KWIKPEN) 100 unit/mL (75-25) inpn34 units in AM and 30 units in the PMDisp: 5 PenRfl: 3 Prescriptions as of 04/12/2018 Sig: INSULIN LISPRO AND LISPRO PROT * 34 units in AM and 30 units i* EZETIMIBE 10 MG TABLET Take 1 tablet by mouth once d* METOPROLOL TARTRATE 25 MG TAB* Take 1 tablet by mouth twice * AMIODARONE 200 MG TABLET Take 1 tablet by mouth once d* ASPIRIN 81 MG TABLET,DELAYED * Take 81 mg by mouth once cindy* MECLIZINE 12.5 MG TABLET 3 TIMES DAILY NEEDED PRN F* METFORMIN 500 MG TABLET Take 1 tablet by mouth twice * LOSARTAN 25 MG TABLET Take 1 tablet by mouth once d* LEVOTHYROXINE 125 MCG TABLET TAKE 1 TABLET BY MOUTH ONCE D* CLOPIDOGREL 75 MG TABLET TAKE 1 TABLET BY MOUTH EVERY * BLOOD SUGAR DIAGNOSTIC STRIPS Test blood sugar 3-4 times da* PEN NEEDLE, DIABETIC 31 GAUGE* Use with 75/25 twice daily ACETAMINOPHEN 325 MG TABLET Take 2 tablets by mouth every* MULTI VITAMIN ORAL Take by mouth. CURCUMIN MISC More... Problem List As Of Date 04/12/2018 Noted Resolved Idiopathic peripheral neuropathy [G60.9] Pyoderma, unspecified [L08.0] INVALID FOR* Other acne [L70.8] INVALID FOR* Seborrheic dermatitis, unspecified [L21.9] INVALID FOR* Other psoriasis [L40.8] INVALID FOR* XEROSIS///SEBACEOUS GLAND DIS NEC [L73.8] INVALID FOR* Other specified disease of nail [L60.8] INVALID FOR* Other seborrheic keratosis [L82.1] INVALID FOR* H/O balance disorder [Z87.898] More... PVC (premature ventricular contraction) [I49.3] Diabetic eye exam (HCC) [Z01.00, E11.9] INVALID FOR* More... Dyslipidemia [E78.5] INVALID FOR*02/19/2014 Well adult exam [Z00.00] INVALID FOR* More... Colon cancer screening [Z12.11] INVALID FOR* Acquired hypothyroidism [E03.9] INVALID FOR* Mixed hyperlipidemia [E78.2] INVALID FOR* Prostate cancer screening [Z12.5] INVALID FOR* Uncontrolled type 2 diabetes mellitus without c*INVALID FOR*06/04/2017 Essential hypertension with goal blood pressure*INVALID FOR* Ex-smoker [Z87.891] INVALID FOR* More... Plantar fasciitis, left [M72.2] INVALID FOR* Multiple lung nodules [R91.8] INVALID FOR* More... History of CVA (cerebrovascular accident) [Z86.*INVALID FOR* More... History of UT (myocardial infarction) [I25.2] INVALID FOR* More... Coronary artery disease due to lipid rich plaqu*INVALID FOR* More... 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] INVALID FOR* More... Uncontrolled type 2 diabetes mellitus with diab*INVALID FOR* History of ischemic cerebrovascular accident (C*INVALID FOR* More... Iron deficiency anemia [D50.9] INVALID FOR* NSVT (nonsustained ventricular tachycardia) (HC*INVALID FOR* Prescriptions ordered this encounter Disp Refills Start End INSULIN LISPRO AND LISPRO PROT (HUM) 1* 5 Pen 3 04/12/2018 Si units in AM and 30 units in the PM Medications Discontinued During This Encounter insulin 75/25 lispro protamine/lispr* 01/25/2018 04/12/2018 Class: Med Update Si units in AM and 30 units in the PM Disc: Reason for discontinue is not on file. Encounter Status:Closed by CARRIE BUENO on 04/12/18 PROGRESS Observed: 04/08/2018 Status: COMPLETED Source: [place] 12:30 PM [facility] REPOSITORY O ID: [id number] Author: Ellis De Luna Service: (none) Author Type: Physician Type: Progress Notes Filed: 04/08/2018 4:16 PM Note Text: Chief Complaint Patient presents with: Hospital F/U: jcak- heart cath with 2 stentz HPI Micky Roldan is a 67 year old male who presents here today for Above Complaints TCM.. Patient was at work on 04/04/2017 and developed chest pain and shortness of breath. Went to [place] in [facility] and was transfer to [facility] in [place] where he underwent a cath and then two stenst were placed in 2 out of three of his previous bypass vessles and the mammorary was repaired. Patient was discharged on 04/06/2018 and new medication was zetia. Has not been on a statin due to myalgias. In Nov had a CVA that caused weakness in his legs. Patient was admitted to [facility] around 02/09/2018 and discharged a few days later. Was to be on Plavix and ASA which he is still taking. Was to be on a statin but not able to tolerate. Was to follow up with neurology but prefers not to see Dr. Jackson. Was having dizziness and was to get vestibular Tx but was never set up. Patient will be following up with Dr. Milton for his heart on 04/28/2018 Since stents being placed he is feeling much better even more so then he did after having the bypass in 01/2017. No chest pain, Slight shortness of breath but nothing like it had been. No swelling in his legs. No fevers, chills, nausea, vomiting or diarrhea. No recent stroke like symptoms. Past medical history, appointments, medications, allergies reviewed. Previous Medical History PAST MEDICAL HISTORY Diagnosis Date - ACNE NEC 09/26/2007 - Acquired hypothyroidism 02/20/2015 - Coronary artery disease due to lipid rich plaque 02/25/[address] Milton - DISEASES OF NAIL NEC 09/26/2007 - Essential hypertension with goal blood pressure less than 130/85 09/02/2015 - FOLLICULITIS///HAIR DISEASES NEC 09/26/2007 - H/O balance disorder chronic due to frequent ear infections in the past. - History of UT (myocardial infarction) 02/25/201701/2017 - Idiopathic peripheral neuropathy - Ischemic cerebrovascular accident (CVA) (HCC) 08/02/201707/2017: left temporal - Mixed hyperlipidemia 02/20/2015 - Multiple lung nodules 09/30/[address] 09/2016, repeat CT 03/2017 - NEVUS///BENIGN OLEGARIO SKIN TRUNK 09/26/2007 - Other psoriasis 09/26/2007 - Other specified idiopathic peripheral neuropathy - PRURITIC DISORDER NOS 09/26/2007 - PVC (premature ventricular contraction) - PYODERMA NOS 09/26/2007 - Right-sided cerebrovascular accident (CVA) ([facility]) 02/09/2017 MRI at [place] 01/2017 showed right cortical stroke. - S/P CABG x 3 02/25/2017 01/22/2017 Following [facility]. - SEBORRHEIC DERMATITIS NOS 09/26/2007 - SEBORRHEIC KERATOSIS NOS 12/16/2007 - Shoulder pain 05/05/2013 - SOLAR LENGINES////DYSCHROMIA OTHER 12/16/2007 - Type II or unspecified type diabetes mellitus without mention of complication, not stated as uncontrolled - Uncontrolled type 2 diabetes mellitus with diabetic neuropathy, with long-term current use of insulin ([facility]) 06/04/2017 - Unspecified hypothyroidism Previous Surgical History PAST SURGICAL HISTORY Procedure Laterality Date - 2D ECHO (EXEP) 01/2017 EF=50-55%, with nl function - 2D ECHO (EXEP) 08/02/2017 EF=53%, mild infante dysf, mild UT and TI - PAST SURGICAL HISTORY OF 01/22/2017 CABG x3 Family History FAMILY HISTORY Problem Relation Age of Onset - other (toxic shock) Mother - None Father - Thyroid Sister Patient Allergies ALLERGIES Allergen Reactions - Crestor [Rosuvastat* Myalgia - Lanolin Itching - Lipitor [Atorvastat* Myalgia Current Medications Current Outpatient Prescriptions on File Prior to Visit: metoprolol tartrate, short acting, (LOPRESSOR) 25 mg tablet Take 1 tablet by mouth twice daily. amiodarone (PACERONE) 200 mg tablet Take 1 tablet by mouth once daily. Per Cardio aspirin, enteric coated (ASPIRIN LOW DOSE) 81 mg EC tablet Take 81 mg by mouth once daily. metFORMIN (GLUCOPHAGE) 500 mg tablet Take 1 tablet by mouth twice daily. losartan (COZAAR) 25 mg tablet Take 1 tablet by mouth once daily. insulin 75/25 lispro protamine/lispro units/mL (HUMALOG MIX 75-25 KWIKPEN) 100 unit/mL (75-25) inpn 34 units in AM and 30 units in the PM levothyroxine (SYNTHROID) 125 mcg tablet TAKE 1 TABLET BY MOUTH ONCE DAILY. TAKE ON EMPTY STOMACH. FOR THYROID. clopidogrel (PLAVIX) 75 mg tablet TAKE 1 TABLET BY MOUTH EVERY DAY blood sugar diagnostic (FREESTYLE LITE STRIPS) test strip Test blood sugar 3-4 times daily Dx E11.40 on insulin insulin needles, DISPOSABLE, (PEN NEEDLE) 31 gauge x 5/16 ndle Use with 75/25 twice daily acetaminophen (TYLENOL) 325 mg tablet Take 2 tablets by mouth every 6 hours as needed for Pain. MULTIVIT-MINERALS/FERROUS FUM (MULTI VITAMIN ORAL) Take by mouth. TURMERIC (CURCUMIN MISC) meclizine (ANTIVERT) 12.5 mg tab 3 TIMES DAILY NEEDED PRN For Dizziness No current facility-administered medications on file prior to visit. Social History Social History Marital status: Spouse name: Years of education: Number of children: 0 Social History Main Topics Smoking status: Former Smoker Packs/day: 0.00 Years: 0.00 Quit date: 12/20/1997 Smokeless tobacco: Former User Types: Snuff, Chew Alcohol use: No Drug use: No Review of Symptoms REVIEW OF SYSTEMS See HPI EXAM: BP 112/68 Pulse 60 Resp 12 Wt 109.3 kg (241 lb) BMI 31.80 kg/m? General Appearance: Well appearing, alert, in no acute distress, well-hydrated, well nourished.. Eyes: Anicteric sclera. Pupils are equally round. Extraocular movements are intact. . Neck: Supple, no adenopathy; thyroid symmetric, normal size, no bruits. Lungs: lungs clear to auscultation. No wheezing, rhonchi, rales. Heart: RRR without murmur, gallop, or rubs. No ectopy. Abdomen: Normal abdominal exam, Abdomen soft, non-tender. Bowel sounds normal. No masses, organomegaly. Extremities: No deformities, edema . Peripheral Pulses: Normal. Neurologic: Gait normal. No gross motor or sensory deficits. Health Maintenance List BP CONTROLLED (<130/80) due on 1968 PNEUMOVAX AGE 65 AND OVER WITH 5YR LOOKBACK(1) due on 04/26/2018 DIABETES MED ADHERENCE due on 04/22/2018 URINE ALBUMIN:CREATININE RATIO due on 06/02/2018 DIABETIC FOOT EXAM due on 07/01/2018 HBA1C due on 07/25/2018 DILATED RETINAL EXAM due on 08/31/2018 LDL CHOLESTEROL due on 01/25/2019 ANNUAL PCP TEAM CHRONIC DISEASE VISIT due on 02/15/2019 FECAL OCCULT BLOOD due on 03/01/2019 PROSTATE CANCER SCREENING DISCUSSION due on 06/02/2022 DTAP,TDAP,TD(3 - Td) due on 07/04/2027 ADULT PREVNAR-13 Completed HEPATITIS C SCREENING Completed Data reviewed A/P ASSESSMENT/PLAN: 1. Coronary artery disease due to lipid rich plaque - ICD9: 414.00, 414.3, ICD10: I25.10, I25.83 (primary diagnosis) - Recently s/p two stents to previous bypass grafts - Patient to cont the plavix and ASA - Patient to start the Zetia - Patient to cont f/u with Cardio 2. History of UT (myocardial infarction) - ICD9: 412, ICD10: I25.2 - See #1 3. History of ischemic cerebrovascular accident (CVA) with residual deficit - ICD9: 438.9, ICD10: I69.30 - Will try to get patient set up with neurology - Cont Plavix and start the zetia. Has not been able to tolerate statins. - CONSULT TO PHYSICAL THERAPY 4. H/O balance disorder - ICD9: V13.89, ICD10: Z87.898 - CONSULT TO PHYSICAL THERAPY 5. Dizziness - ICD9: 780.4, ICD10: R42 - CONSULT TO PHYSICAL THERAPY Keep f/u in May sooner if issues. Ellis De Luna MD CNOV Observed: 04/08/2018 Status: COMPLETED Source: [place] 11:40 AM [facility] REPOSITORY Office Visit (FAMPWS) MICKY ROLDAN ([id number]) 1950 M Date Time Provider Department 04/08/18 11:40 AM ELLIS DE LUNA FAMPWS During your visit today, we recorded the following information about you: Pulse Respiration Blood pressure Weight 60/minute 12/minute 112/68 109.3 kg Ellis De Luna MD 04/08/2018 4:16 PM Signed Chief Complaint Patient presents with: Hospital F/U: jack- heart cath with 2 stentz HPI Micky Roldan is a 67 year old male who presents here today for Above Complaints TCM.. Patient was at work on 04/04/2017 and developed chest pain and shortness of breath. Went to [place] in [facility] and was transfer to [facility] in [place] where he underwent a cath and then two stenst were placed in 2 out of three of his previous bypass vessles and the mammorary was repaired. Patient was discharged on 04/06/2018 and new medication was zetia. Has not been on a statin due to myalgias. In Nov had a CVA that caused weakness in his legs. Patient was admitted to [facility] around 02/09/2018 and discharged a few days later. Was to be on Plavix and ASA which he is still taking. Was to be on a statin but not able to tolerate. Was to follow up with neurology but prefers not to see Dr. Jackson. Was having dizziness and was to get vestibular Tx but was never set up. Patient will be following up with Dr. Milton for his heart on 04/28/2018 Since stents being placed he is feeling much better even more so then he did after having the bypass in 01/2017. No chest pain, Slight shortness of breath but nothing like it had been. No swelling in his legs. No fevers, chills, nausea, vomiting or diarrhea. No recent stroke like symptoms. Past medical history, appointments, medications, allergies reviewed. Previous Medical History PAST MEDICAL HISTORY Diagnosis Date - ACNE NEC 09/26/2007 - Acquired hypothyroidism 02/20/2015 - Coronary artery disease due to lipid rich plaque 02/25/[address] Milton - DISEASES OF NAIL NEC 09/26/2007 - Essential hypertension with goal blood pressure less than 130/85 09/02/2015 - FOLLICULITIS///HAIR DISEASES NEC 09/26/2007 - H/O balance disorder chronic due to frequent ear infections in the past. - History of UT (myocardial infarction) 02/25/201701/2017 - Idiopathic peripheral neuropathy - Ischemic cerebrovascular accident (CVA) (HCC) 08/02/201707/2017: left temporal - Mixed hyperlipidemia 02/20/2015 - Multiple lung nodules 09/30/[address] 09/2016, repeat CT 03/2017 - NEVUS///BENIGN OLEGARIO SKIN TRUNK 09/26/2007 - Other psoriasis 09/26/2007 - Other specified idiopathic peripheral neuropathy - PRURITIC DISORDER NOS 09/26/2007 - PVC (premature ventricular contraction) - PYODERMA NOS 09/26/2007 - Right-sided cerebrovascular accident (CVA) ([facility]) 02/09/2017 MRI at [place] 01/2017 showed right cortical stroke. - S/P CABG x 3 02/25/2017 01/22/2017 Following [facility]. - SEBORRHEIC DERMATITIS NOS 09/26/2007 - SEBORRHEIC KERATOSIS NOS 12/16/2007 - Shoulder pain 05/05/2013 - SOLAR LENGINES////DYSCHROMIA OTHER 12/16/2007 - Type II or unspecified type diabetes mellitus without mention of complication, not stated as uncontrolled - Uncontrolled type 2 diabetes mellitus with diabetic neuropathy, with long-term current use of insulin ([facility]) 06/04/2017 - Unspecified hypothyroidism Previous Surgical History PAST SURGICAL HISTORY Procedure Laterality Date - 2D ECHO (EXEP) 01/2017 EF=50-55%, with nl function - 2D ECHO (EXEP) 08/02/2017 EF=53%, mild infante dysf, mild UT and TI - PAST SURGICAL HISTORY OF 01/22/2017 CABG x3 Family History FAMILY HISTORY Problem Relation Age of Onset - other (toxic shock) Mother - None Father - Thyroid Sister Patient Allergies ALLERGIES Allergen Reactions - Crestor [Rosuvastat* Myalgia - Lanolin Itching - Lipitor [Atorvastat* Myalgia Current Medications Current Outpatient Prescriptions on File Prior to Visit: metoprolol tartrate, short acting, (LOPRESSOR) 25 mg tablet Take 1 tablet by mouth twice daily. amiodarone (PACERONE) 200 mg tablet Take 1 tablet by mouth once daily. Per Cardio aspirin, enteric coated (ASPIRIN LOW DOSE) 81 mg EC tablet Take 81 mg by mouth once daily. metFORMIN (GLUCOPHAGE) 500 mg tablet Take 1 tablet by mouth twice daily. losartan (COZAAR) 25 mg tablet Take 1 tablet by mouth once daily. insulin 75/25 lispro protamine/lispro units/mL (HUMALOG MIX 75-25 KWIKPEN) 100 unit/mL (75-25) inpn 34 units in AM and 30 units in the PM levothyroxine (SYNTHROID) 125 mcg tablet TAKE 1 TABLET BY MOUTH ONCE DAILY. TAKE ON EMPTY STOMACH. FOR THYROID. clopidogrel (PLAVIX) 75 mg tablet TAKE 1 TABLET BY MOUTH EVERY DAY blood sugar diagnostic (FREESTYLE LITE STRIPS) test strip Test blood sugar 3-4 times daily Dx E11.40 on insulin insulin needles, DISPOSABLE, (PEN NEEDLE) 31 gauge x 5/16 ndle Use with 75/25 twice daily acetaminophen (TYLENOL) 325 mg tablet Take 2 tablets by mouth every 6 hours as needed for Pain. MULTIVIT-MINERALS/FERROUS FUM (MULTI VITAMIN ORAL) Take by mouth. TURMERIC (CURCUMIN MISC) meclizine (ANTIVERT) 12.5 mg tab 3 TIMES DAILY NEEDED PRN For Dizziness No current facility-administered medications on file prior to visit. Social History Social History Marital status: Spouse name: Years of education: Number of children: 0 Social History Main Topics Smoking status: Former Smoker Packs/day: 0.00 Years: 0.00 Quit date: 12/20/1997 Smokeless tobacco: Former User Types: Snuff, Chew Alcohol use: No Drug use: No Review of Symptoms REVIEW OF SYSTEMS See HPI EXAM: BP 112/68 Pulse 60 Resp 12 Wt 109.3 kg (241 lb) BMI 31.80 kg/m? General Appearance: Well appearing, alert, in no acute distress, well-hydrated, well nourished.. Eyes: Anicteric sclera. Pupils are equally round. Extraocular movements are intact. . Neck: Supple, no adenopathy; thyroid symmetric, normal size, no bruits. Lungs: lungs clear to auscultation. No wheezing, rhonchi, rales. Heart: RRR without murmur, gallop, or rubs. No ectopy. Abdomen: Normal abdominal exam, Abdomen soft, non-tender. Bowel sounds normal. No masses, organomegaly. Extremities: No deformities, edema . Peripheral Pulses: Normal. Neurologic: Gait normal. No gross motor or sensory deficits. Health Maintenance List BP CONTROLLED (<130/80) due on 1968 PNEUMOVAX AGE 65 AND OVER WITH 5YR LOOKBACK(1) due on 04/26/2018 DIABETES MED ADHERENCE due on 04/22/2018 URINE ALBUMIN:CREATININE RATIO due on 06/02/2018 DIABETIC FOOT EXAM due on 07/01/2018 HBA1C due on 07/25/2018 DILATED RETINAL EXAM due on 08/31/2018 LDL CHOLESTEROL due on 01/25/2019 ANNUAL PCP TEAM CHRONIC DISEASE VISIT due on 02/15/2019 FECAL OCCULT BLOOD due on 03/01/2019 PROSTATE CANCER SCREENING DISCUSSION due on 06/02/2022 DTAP,TDAP,TD(3 - Td) due on 07/04/2027 ADULT PREVNAR-13 Completed HEPATITIS C SCREENING Completed Data reviewed A/P ASSESSMENT/PLAN: 1. Coronary artery disease due to lipid rich plaque - ICD9: 414.00, 414.3, ICD10: I25.10, I25.83 (primary diagnosis) - Recently s/p two stents to previous bypass grafts - Patient to cont the plavix and ASA - Patient to start the Zetia - Patient to cont f/u with Cardio 2. History of UT (myocardial infarction) - ICD9: 412, ICD10: I25.2 - See #1 3. History of ischemic cerebrovascular accident (CVA) with residual deficit - ICD9: 438.9, ICD10: I69.30 - Will try to get patient set up with neurology - Cont Plavix and start the zetia. Has not been able to tolerate statins. - CONSULT TO PHYSICAL THERAPY 4. H/O balance disorder - ICD9: V13.89, ICD10: Z87.898 - CONSULT TO PHYSICAL THERAPY 5. Dizziness - ICD9: 780.4, ICD10: R42 - CONSULT TO PHYSICAL THERAPY Keep f/u in May sooner if issues. Ellis De Luna MD Referring Provider: ELLIS DE LUNA [[id number]] Allergies As of Date: 04/08/2018 Noted Allergy Reaction CRESTOR (ROSUVASTATIN CALCIUM) 09/07/2017 17 - Myalgia LANOLIN 02/15/2008 9 - Itching LIPITOR (ATORVASTATIN CALCIUM) 09/07/2017 17 - Myalgia Date Reviewed: 04/08/2018 Reviewed by: Ellis De Luna - Fully Assessed Reason for Visit: Hospital F/U [57] Cmt: jack- heart cath with 2 stentz Primary Visit Diagnosis:Coronary artery disease due to lipid rich plaque [I25.10, I25.83] Other Visit Diagnoses:History of UT (myocardial infarction) [I25.2] History of ischemic cerebrovascular accident (CVA) with residual deficit [I69.30] H/O balance disorder [Z87.898] Dizziness [R42] Order(s):CONSULT TO PHYSICAL THERAPY [2504] Order #: [id number]: 1 Prescriptions as of 04/08/2018 Sig: EZETIMIBE 10 MG TABLET Take 1 tablet by mouth once d* METOPROLOL TARTRATE 25 MG TAB* Take 1 tablet by mouth twice * AMIODARONE 200 MG TABLET Take 1 tablet by mouth once d* ASPIRIN 81 MG TABLET,DELAYED * Take 81 mg by mouth once cindy* METFORMIN 500 MG TABLET Take 1 tablet by mouth twice * LOSARTAN 25 MG TABLET Take 1 tablet by mouth once d* INSULIN LISPRO AND LISPRO PROT * 34 units in AM and 30 units i* LEVOTHYROXINE 125 MCG TABLET TAKE 1 TABLET BY MOUTH ONCE D* CLOPIDOGREL 75 MG TABLET TAKE 1 TABLET BY MOUTH EVERY * BLOOD SUGAR DIAGNOSTIC STRIPS Test blood sugar 3-4 times da* PEN NEEDLE, DIABETIC 31 GAUGE* Use with 75/25 twice daily ACETAMINOPHEN 325 MG TABLET Take 2 tablets by mouth every* MULTI VITAMIN ORAL Take by mouth. CURCUMIN MISC MECLIZINE 12.5 MG TABLET 3 TIMES DAILY NEEDED PRN F* More... Problem List As Of Date 04/08/2018 Noted Resolved Idiopathic peripheral neuropathy [G60.9] Pyoderma, unspecified [L08.0] INVALID FOR* Other acne [L70.8] INVALID FOR* Seborrheic dermatitis, unspecified [L21.9] INVALID FOR* Other psoriasis [L40.8] INVALID FOR* XEROSIS///SEBACEOUS GLAND DIS NEC [L73.8] INVALID FOR* Other specified disease of nail [L60.8] INVALID FOR* Other seborrheic keratosis [L82.1] INVALID FOR* H/O balance disorder [Z87.898] More... PVC (premature ventricular contraction) [I49.3] Diabetic eye exam (HCC) [Z01.00, E11.9] INVALID FOR* More... Dyslipidemia [E78.5] INVALID FOR*02/19/2014 Well adult exam [Z00.00] INVALID FOR* More... Colon cancer screening [Z12.11] INVALID FOR* Acquired hypothyroidism [E03.9] INVALID FOR* Mixed hyperlipidemia [E78.2] INVALID FOR* Prostate cancer screening [Z12.5] INVALID FOR* Uncontrolled type 2 diabetes mellitus without c*INVALID FOR*06/04/2017 Essential hypertension with goal blood pressure*INVALID FOR* Ex-smoker [Z87.891] INVALID FOR* More... Plantar fasciitis, left [M72.2] INVALID FOR* Multiple lung nodules [R91.8] INVALID FOR* More... History of CVA (cerebrovascular accident) [Z86.*INVALID FOR* More... History of UT (myocardial infarction) [I25.2] INVALID FOR* More... Coronary artery disease due to lipid rich plaqu*INVALID FOR* More... 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] INVALID FOR* More... Uncontrolled type 2 diabetes mellitus with diab*INVALID FOR* History of ischemic cerebrovascular accident (C*INVALID FOR* More... Iron deficiency anemia [D50.9] INVALID FOR* NSVT (nonsustained ventricular tachycardia) (HC*INVALID FOR* Medications Discontinued During This Encounter HUMALOG MIX 75-25 KWIKPEN 100 unit/m* 5 Pen 3 02/07/2018 04/08/2018 Route: SUBCUTANEOUS Sig: INJECT 28 UNITS SUBCUTANEOUSLY TWICE DAILY WITH MEALS. Disc: Reason for discontinue is not on file. insulin 75/25 lispro protamine/lispr* 04/08/2018 04/08/2018 Class: Historical Med Si units am and 30 pm Disc: Duplicate Entry Follow-up and Disposition History Recorded Encounter Status:Closed by ELLIS DE LUNA on 04/08/18 BASIC METABOLIC Collected: 04/07/2018 Status: F Source: TAMMY PROFILE (BMP) 7:41 AM [facility] [place] TYPE CODE TESTS RESULT OUT OF RANGE REFERENCE UNITS LAB L501.0100 74-106 mg/dL High GLU 153 Result Comment: Fasting Glucose result greater than or equal to 126 mg/dL suggests DIABETES MELLITUS per A.D.A. criteria. Please note revised GLUCOSE reference range effective 2017. LAB L501.1000 7-18 mg/dL High BUN 24 LAB L501.1100 0.70-1.30 mg/dL High CREAT,SERUM 1.34 Result Comment: The validity of the calculated GFR AND GFRAA in patients over 70 years has not been determined. Clinical correlation is essential. LAB L501.1110 >60 mL/min Low EST GFR 56 Result Comment: Non- GFR Calc LAB L501.1115 >60 mL/min Normal EST GFR - AA 68 Result Comment: GFR Calc LAB L501.1300 10-20 RATIO Normal BUN/CRE 17.9 LAB L501.2200 8.5-10.1 mg/dL CA Normal 9.0 LAB L501.5300 136-145 mmol/L NA Normal 140 LAB L501.5600 3.5-5.1 mmol/L K Normal 4.1 LAB L501.5900 98-107 mmol/L CL Normal 103 LAB L501.6100 21.0-32.0 mmol/L Normal CO2 29.0 LAB L501.6200 5-15 Normal GAP 8 Performed By: #### L500.2500 #### [facility] [address], [address] BMP Collected: 04/06/2018 Status: F Source: [facility] 9:59 AM [facility] REPOSITORY TYPE CODE TESTS RESULT OUT OF REFERENCE UNITS RANGE LAB GLU(LOINC) 82-115 mg/dL Glucose High Level 319 LAB NA(LOINC) 136-145 mEq/L Low Sodium Level 135 LAB K(LOINC) 3.5-5.0 mEq/L Potassium Level 4.0 LAB CL(LOINC) 98-110 mEq/L Chloride 99 LAB CO2(LOINC) 22-32 mEq/L CO2 28 LAB EBAL(LOINC 4.0-15.0 mEq/L ) Electrolyte Balance 8.0 LAB BUN(LOINC) 8.0-22.0 mg/dL BUN 20.0 LAB CRE(LOINC) 0.60-1.40 mg/dL Creatinine Lvl (s) 1.20 LAB BC(LOINC) 10.0-22.0 ratio BUN/Creatinine 16.7 Ratio LAB CA(LOINC) 8.4-10.1 mg/dL Calcium Lvl 8.9 Performed By: #### BMP, GFR #### [facility] [address] [place] [address] .GFR Collected: 04/06/2018 Status: F Source: [facility] 9:59 AM [facility] REPOSITORY TYPE CODE TESTS RESULT OUT OF REFERENCE UNITS RANGE LAB GFRAA(LOINC ml/min/1.73 ) sqm GFR >60 English Result Comment: GFR Population mean for , Non- Americans Ages 20-29 = 116 mL/min/1.73 sq.m. Ages 30-39 = 107 mL/min/1.73 sq.m. Ages 40-49 = 99 mL/min/1.73 sq.m. Ages 50-59 = 93 mL/min/1.73 sq.m. Ages 60-69 = 85 mL/min/1.73 sq.m. Ages 70+ = 75 mL/min/1.73 sq.m. Chronic Kidney Disease: Less than 60 mL/min/1.73 square meters End Stage Renal Disease: Less than 15 mL/min/1.73 square meters LAB GFRNO(LOINC) ml/min/1.73sqm GFR Non- 60 Result Comment: GFR Population mean for , Non- Americans Ages 20-29 = 116 mL/min/1.73 sq.m. Ages 30-39 = 107 mL/min/1.73 sq.m. Ages 40-49 = 99 mL/min/1.73 sq.m. Ages 50-59 = 93 mL/min/1.73 sq.m. Ages 60-69 = 85 mL/min/1.73 sq.m. Ages 70+ = 75 mL/min/1.73 sq.m. Chronic Kidney Disease: Less than 60 mL/min/1.73 square meters End Stage Renal Disease: Less than 15 mL/min/1.73 square meters Performed By: #### BMP, GFR #### [address] [address] TROPI Collected: 04/05/2018 Status: F Source: [facility] 5:28 PM [facility] REPOSITORY TYPE CODE TESTS RESULT OUT OF REFERENCE UNITS RANGE LAB TROPI(LOINC 0.000-0.040 ng/mL ) Troponin I 0.034 Result Comment: Troponin I reference ranges (11/27/13): 0.00-0.040 ng/mL Negative and non-diagnostic. >0.040 ng/mL Consistent with cardiac damage, increased clinical risk and possibility of myocardial infarction. Serial measurements, a rise & fall in test results, clinical history, appropriate symptoms and/or ECG changes may help assess possibility of UT. *Other non-acute coronary syndrome conditions such as CHF, myocarditis, pulmonary emboli, sepsis and cardiac surgery could result in myocardial damage and increased troponin levels. Performed By: #### TROPI #### [address] [address] TROPI Collected: 04/05/2018 Status: F Source: [facility] 10:43 AM [facility] REPOSITORY TYPE CODE TESTS RESULT OUT OF REFERENCE UNITS RANGE LAB TROPI(LOINC 0.000-0.040 ng/mL ) Troponin I 0.018 Result Comment: Troponin I reference ranges (11/27/13): 0.00-0.040 ng/mL Negative and non-diagnostic. >0.040 ng/mL Consistent with cardiac damage, increased clinical risk and possibility of myocardial infarction. Serial measurements, a rise & fall in test results, clinical history, appropriate symptoms and/or ECG changes may help assess possibility of UT. *Other non-acute coronary syndrome conditions such as CHF, myocarditis, pulmonary emboli, sepsis and cardiac surgery could result in myocardial damage and increased troponin levels. Performed By: #### TROPI #### [place] [id number] CBC Collected: 04/05/2018 Status: F Source: [facility] 6:31 AM [facility] REPOSITORY TYPE CODE TESTS RESULT OUT OF REFERENCE UNITS RANGE LAB WBC(LOINC) 4.50-10.80 10 3/mcL WBC 7.60 LAB RBCCT(LOINC 4.50-6.00 10 6/mcL ) RBC 4.77 LAB HGB(LOINC) 13.0-17.5 G/dL Hgb 13.8 LAB HCT(LOINC) 40.0-52.0 % Hct 42.2 LAB MCV(LOINC) 81.0-100.0 fL MCV 88.5 LAB MCH(LOINC) 27.0-33.0 pg MCH 28.8 LAB MCHC(LOINC) 32.0-36.0 G/dL MCHC 32.6 LAB RDW(LOINC) 11.5-15.5 % High RDW 15.6 LAB PLT(LOINC) 150-450 10 3/mcL Platelet 157 LAB MPV(LOINC) 6.4-10.5 fL MPV 9.5 Performed By: #### CBC, ADIFF, ANEU, BMP, GFR #### [address] [address] .AUTO DIFF Collected: 04/05/2018 Status: F Source: [facility] 6:31 AM [facility] REPOSITORY TYPE CODE TESTS RESULT OUT OF REFERENCE UNITS RANGE LAB JAGDEEP(LOINC) 50.0-75.0 % Neutrophil % 73.8 LAB LYM(LOINC) 20.0-40.0 % Low Lymphocyte % 15.9 LAB MON(LOINC) 2.0-13.0 % Monocyte % 7.8 LAB EO(LOINC) 0.0-6.0 % Eosinophil % 2.2 LAB BAS(LOINC) 0.0-2.5 % Basophil % 0.3 LAB ABLYM(LOIN 0.90-4.32 10 3/mcL C) Lymphocyte, 1.20 Absolute LAB TERRELL(LOINC 0.09-1.40 10 3/mcL ) Monocyte, 0.60 Absolute LAB AEOS(LOINC 0.00-0.65 10 3/mcL ) Eosinophil, 0.20 Absolute LAB ABAS(LOINC 0.00-0.27 10 3/mcL ) Basophil, 0.00 Absolute Performed By: #### CBC, ADIFF, ANEU, BMP, GFR #### [place] [address] .NEUABS Collected: 04/05/2018 Status: F Source: [facility] 6:31 [facility] REPOSITORY TYPE CODE TESTS RESULT OUT OF REFERENCE UNITS RANGE LAB ANEU(LOINC) 2.25-8.10 10 3/mcL Neutrophil, 5.60 Absolute Performed By: #### CBC, ADIFF, ANEU, BMP, GFR #### [place] [address] BMP Collected: 04/05/2018 Status: F Source: [facility] 6:31 [facility] REPOSITORY TYPE CODE TESTS RESULT OUT OF REFERENCE UNITS RANGE LAB GLU(LOINC) 82-115 mg/dL Glucose Level 89 LAB NA(LOINC) 136-145 mEq/L Sodium Level 140 LAB K(LOINC) 3.5-5.0 mEq/L Potassium Level 3.9 LAB CL(LOINC) 98-110 mEq/L Chloride 105 LAB CO2(LOINC) 22-32 mEq/L CO2 28 LAB EBAL(LOINC 4.0-15.0 mEq/L ) Electrolyte Balance 7.0 LAB BUN(LOINC) 8.0-22.0 mg/dL BUN 20.0 LAB CRE(LOINC) 0.60-1.40 mg/dL Creatinine Lvl (s) 1.20 LAB BC(LOINC) 10.0-22.0 ratio BUN/Creatinine 16.7 Ratio LAB CA(LOINC) 8.4-10.1 mg/dL Calcium Lvl 8.4 Performed By: #### CBC, ADIFF, ANEU, BMP, GFR #### [address] [address] .GFR Collected: 04/05/2018 Status: F Source: [facility] 6:31 AM [facility] REPOSITORY TYPE CODE TESTS RESULT OUT OF REFERENCE UNITS RANGE LAB GFRAA(LOINC ml/min/1.73 ) sqm GFR >60 English Result Comment: GFR Population mean for , Non- Americans Ages 20-29 = 116 mL/min/1.73 sq.m. Ages 30-39 = 107 mL/min/1.73 sq.m. Ages 40-49 = 99 mL/min/1.73 sq.m. Ages 50-59 = 93 mL/min/1.73 sq.m. Ages 60-69 = 85 mL/min/1.73 sq.m. Ages 70+ = 75 mL/min/1.73 sq.m. Chronic Kidney Disease: Less than 60 mL/min/1.73 square meters End Stage Renal Disease: Less than 15 mL/min/1.73 square meters LAB GFRNO(LOINC) ml/min/1.73sqm GFR Non- 60 Result Comment: GFR Population mean for , Non- Americans Ages 20-29 = 116 mL/min/1.73 sq.m. Ages 30-39 = 107 mL/min/1.73 sq.m. Ages 40-49 = 99 mL/min/1.73 sq.m. Ages 50-59 = 93 mL/min/1.73 sq.m. Ages 60-69 = 85 mL/min/1.73 sq.m. Ages 70+ = 75 mL/min/1.73 sq.m. Chronic Kidney Disease: Less than 60 mL/min/1.73 square meters End Stage Renal Disease: Less than 15 mL/min/1.73 square meters Performed By: #### CBC, ADIFF, ANEU, BMP, GFR #### [address] [address] TROPI Collected: 04/05/2018 Status: F Source: [facility] 6:31 AM [facility] REPOSITORY TYPE CODE TESTS RESULT OUT OF REFERENCE UNITS RANGE LAB TROPI(LOINC 0.000-0.040 ng/mL ) Troponin I 0.023 Result Comment: Troponin I reference ranges (11/27/13): 0.00-0.040 ng/mL Negative and non-diagnostic. >0.040 ng/mL Consistent with cardiac damage, increased clinical risk and possibility of myocardial infarction. Serial measurements, a rise & fall in test results, clinical history, appropriate symptoms and/or ECG changes may help assess possibility of UT. *Other non-acute coronary syndrome conditions such as CHF, myocarditis, pulmonary emboli, sepsis and cardiac surgery could result in myocardial damage and increased troponin levels. Performed By: #### TROPI #### [address] [address] XR CHEST 1 VIEW Observed: 04/04/2018 Status: F Source: [facility] 8:37 AM [facility] REPOSITORY ORIGINAL XR CHEST 1 VIEW 8:30 AM CLINICAL STATEMENT: chest pain. COMPARISON: 03/17/2017 FINDINGS: The heart size is within normal limits. There is evidence of prior median sternotomy. Central vascular congestion is demonstrated. Mild bibasilar atelectasis is noted. No significant pleural abnormality is seen. IMPRESSION: Favor mild central vascular congestion. Interpreted By: Aufa Vergara MD Preliminary Report By: Afua Vergara MD Electronically Signed By: Afua Vergara MD Dictated Date: 04/04/2018 8:56:16 AM Prelim Date: 04/04/2018 8:56:16 AM Sign Date: 04/04/2018 8:57:15 AM CBC Collected: 04/04/2018 Status: F Source: [facility] 7:14 AM [facility] REPOSITORY TYPE CODE TESTS RESULT OUT OF REFERENCE UNITS RANGE LAB WBC(LOINC) 4.60-10.80 10 3/mcL WBC 7.10 LAB RBCCT(LOINC 4.04-6.13 10 6/mcL ) RBC 4.85 LAB HGB(LOINC) 14.0-18.0 G/dL Low Hgb 13.9 LAB HCT(LOINC) 42.0-52.0 % Hct 42.0 LAB MCV(LOINC) 80.0-94.0 fL MCV 86.6 LAB MCH(LOINC) 27.0-31.2 pg MCH 28.7 LAB MCHC(LOINC) 31.8-35.4 G/dL MCHC 33.2 LAB RDW(LOINC) 11.5-14.5 % High RDW 15.9 LAB PLT(LOINC) 130-400 10 3/mcL Platelet 163 LAB MPV(LOINC) 7.4-10.4 fL MPV 9.9 Performed By: #### CBC, ADIFF, ANEU #### [address] [address] #### BMP, TROP, GFR #### [address] [address] .AUTO DIFF Collected: 04/04/2018 Status: F Source: [facility] 7:14 AM [facility] REPOSITORY TYPE CODE TESTS RESULT OUT OF REFERENCE UNITS RANGE LAB JAGDEEP(LOINC) 37.0-80.0 % Neutrophil % 72.9 LAB LYM(LOINC) 10.0-50.0 % Lymphocyte % 18.3 LAB MON(LOINC) 1.7-13.0 % Monocyte % 5.9 LAB EO(LOINC) 0.0-7.0 % Eosinophil % 2.2 LAB BAS(LOINC) 0.0-2.5 % Basophil % 0.7 LAB ABLYM(LOIN 0.77-3.85 10 3/mcL C) Lymphocyte, 1.30 Absolute LAB TERRELL(LOINC 0.15-1.00 10 3/mcL ) Monocyte, 0.40 Absolute LAB AEOS(LOINC 0.00-0.40 10 3/mcL ) Eosinophil, 0.20 Absolute LAB ABAS(LOINC 0.00-0.19 10 3/mcL ) Basophil, 0.00 Absolute Performed By: #### CBC, ADIFF, ANEU #### [address] [address] #### BMP, TROP, GFR #### [address] [address] .NEUABS Collected: 04/04/2018 Status: F Source: [facility] 7:14 AM [facility] REPOSITORY TYPE CODE TESTS RESULT OUT OF REFERENCE UNITS RANGE LAB ANEU(LOINC) 2.85-6.16 10 3/mcL Neutrophil, 5.10 Absolute Performed By: #### CBC, ADIFF, ANEU #### [address] [address] #### BMP, TROP, GFR #### [place] [address] BMP Collected: 04/04/2018 Status: F Source: [facility] 7:14 AM [facility] REPOSITORY TYPE CODE TESTS RESULT OUT OF REFERENCE UNITS RANGE LAB GLU(LOINC) 80-115 mg/dL Glucose High Level 225 LAB NA(LOINC) 136-145 mmol/L Sodium Level 140 LAB K(LOINC) 3.5-5.1 mmol/L Potassium Level 4.7 LAB CL(LOINC) 98-107 mmol/L Chloride 103 LAB CO2(LOINC) 23-31 mmol/L CO2 27 LAB EBAL(LOINC mEq/L ) Electrolyte Balance 10.0 LAB BUN(LOINC) 7-18 mg/dL BUN High 24 LAB CRE(LOINC) 0.70-1.30 mg/dL Creatinine High Lvl (s) 1.37 LAB BC(LOINC) 7-27 ratio BUN/Creatinine 18 Ratio LAB CA(LOINC) 8.4-10.2 mg/dL Calcium Lvl 9.1 Performed By: #### CBC, ADIFF, ANEU #### [address] [address] #### BMP, TROP, GFR #### [place] [address] TROP Collected: 04/04/2018 Status: F Source: [facility] 7:14 AM [facility] REPOSITORY TYPE CODE TESTS RESULT OUT OF REFERENCE UNITS RANGE LAB TROP(LOINC) 0.000-0.040 ng/mL Troponin <0.020 Result Comment: Troponin I reference range: 0.00-0.040 ng/mL Negative and non-diagnostic. >0.040 ng/mL Consistent with cardiac damage, increased clinical risk and possibility of myocardial infarction. Serial measurements, a rise & fall in test results, clinical history, appropriate symptoms and/or ECG changes may help assess possibility of UT. *Other non-acute coronary syndrome conditions such as CHF, myocarditis, pulmonary emboli, sepsis and cardiac surgery could result in myocardial damage and increased troponin levels. Performed By: #### CBC, ADIFF, ANEU #### [place] [address] [place], [place] [address] #### BMP, TROP, GFR #### [address] [address] .GFR Collected: 04/04/2018 Status: F Source: [facility] 7:14 AM [facility] REPOSITORY TYPE CODE TESTS RESULT OUT OF REFERENCE UNITS RANGE LAB GFRAA(LOINC ml/min/1.73 ) sqm GFR 63 English Result Comment: GFR Population mean for , Non- Americans Ages 20-29 = 116 mL/min/1.73 sq.m. Ages 30-39 = 107 mL/min/1.73 sq.m. Ages 40-49 = 99 mL/min/1.73 sq.m. Ages 50-59 = 93 mL/min/1.73 sq.m. Ages 60-69 = 85 mL/min/1.73 sq.m. Ages 70+ = 75 mL/min/1.73 sq.m. Chronic Kidney Disease: Less than 60 mL/min/1.73 square meters End Stage Renal Disease: Less than 15 mL/min/1.73 square meters LAB GFRNO(LOINC) ml/min/1.73sqm GFR Non- 52 Result Comment: GFR Population mean for , Non- Americans Ages 20-29 = 116 mL/min/1.73 sq.m. Ages 30-39 = 107 mL/min/1.73 sq.m. Ages 40-49 = 99 mL/min/1.73 sq.m. Ages 50-59 = 93 mL/min/1.73 sq.m. Ages 60-69 = 85 mL/min/1.73 sq.m. Ages 70+ = 75 mL/min/1.73 sq.m. Chronic Kidney Disease: Less than 60 mL/min/1.73 square meters End Stage Renal Disease: Less than 15 mL/min/1.73 square meters Performed By: #### CBC, ADIFF, ANEU #### [place] [address] [place], [place] [address] #### BMP, TROP, GFR #### [address] [address] CARDIOLOGY VISIT Observed: 03/29/2018 Status: F Source: [place] [facility] 3:05 PM [facility] [place] [facility] [address] [place] [address] OFFICE VISIT Date of Service: 03/29/18 MR#: [id number] Acct: [id number] Name: MICKY ROLDAN Rep #: [id number] : 1950 Provider: MARIO Hensley Age/Sex: 67/M Location: [facility] [place] Status: Signed HPI HPI Chief Complaint: Acute Stroke Details: MICKY ROLDAN, is a 67 M who presents to the office today for a cardiovascular outpatient follow-up. He has a history of coronary artery disease with a non-ST elevated myocardial infarction in December 2016 and is status post bypass surgery in January 2017 at [facility] with a THRASHER to LAD, reverse SVG to the posterior lateral left ventricular branch, and reverse SVG to obtuse marginal. He also has history of hypertension, hyperlipidemia, WILLIAN with Bipap, CVA in January 2018, and diabetes. Pt. denies chest, arm, jaw, or neck discomfort. He states SOB on exertion. Pt. denies symptoms of palpitations, near syncope, or syncopal episodes. Pt. denies edema or claudication issues. Pt. denies fever, chills, blood in urine, blood in stool, myalgia, or unexplainable fatigue. Pt. states feeling a PVC rarely without any secondary symptoms. He states rare orthopnea. He continues to get dizziness and lightheadedness with position changes. He states continual bypass incision pain at times. Intake Vital Signs03/29/18 Body Mass Index (BMI) 31.2 03/29/18 Height 6 ft 1 in 03/29/18 Weight: 242 lb 03/29/18 Body Mass Index (BMI) 31.9 03/29/18 Blood Pressure 134/60 H H 03/29/18 Blood Pressure Location Lt brachial Intake Visit Reasons: 9 m fu Rn Bsn Required: No Accompanied by: None Is patient in pain?: No Allergies atorvastatin [From Lipitor] Adverse Reaction (Mild, Verified 03/29/18 13:22) mylagia lanolin Adverse Reaction (Unknown, Verified 03/29/18 13:22) Unknown Medications Levothyroxine [Synthroid] 125 mcg PO DAILY 01/19/17 [History Confirmed 03/29/18] Multivitamin with Iron [Multivitamins with Iron] 1 ea PO DAILY 01/19/17 [History Confirmed 03/29/18] metformin 500 mg tablet 500 mg PO BID 03/19/17 [History Confirmed 03/29/18] losartan 25 mg tablet 25 mg PO DAILY 06/28/17 [History Confirmed 03/29/18] Insulin Human 75/25 [Humalog Mix 75-25 Kwikpen] 34 unit SUBCUT DAILY 10/06/17 [History Confirmed 03/29/18] Clopidogrel Bisulfate [Plavix] 75 mg PO DAILY 02/08/18 [History Confirmed 03/29/18] Gluc Bautista/Chondro Bautista A/Vit C/Mn [Glucosamine-Chondroitin Cap] 1 ea PO 02/08/18 [History Confirmed 03/29/18] Insulin Human 75/25 [Humalog Mix 75-25 Kwikpen] 30 units SQ QHS 02/08/18 [History Confirmed 03/29/18] Tumeric Extract 1 tab PO BID 02/08/18 [History Confirmed 03/29/18] Aspirin [Aspirin, Baby] 81 mg PO DAILY@0800 tab.chew 02/09/18 [Rx Confirmed 03/29/18] amiodarone 200 mg tablet 200 mg PO DAILY #30 tab 03/29/18 [Rx Confirmed 03/29/18] metoprolol tartrate 25 mg tablet 25 mg PO BID #60 tab 03/29/18 [Rx Confirmed 03/29/18] Ejection fraction %: 50 to 54 PFSH Medical History History of non-ST elevation myocardial infarction (NSTEMI) (Acute) Essential (primary) hypertension (Chronic) Atherosclerosis of chitina coronary artery of chitina heart without angina pectoris (Chronic) Hyperlipidemia (Chronic) Diabetes mellitus (Chronic) Thyroid disorder (Chronic) History of left heart catheterization (Chronic) Surgical History History of coronary artery bypass surgery (Chronic 01/21/17) Hx of CABG (Chronic 01/21/17) Family History Sister CAD (coronary artery disease) Diabetes Brother CAD (coronary artery disease) Social History Smoking Status: Former smoker how long ago did patient quit smokin alcohol intake: never substance use type: does not use caffeine: Yes Type: coffee Number of servings: 1 what type of physical activity do you participate in: none seatbelt use: always do you feel safe at home: Yes ROS Const Const: Negative for body ache, fever(s), chills, fatigue or weakness ENT ENT: Positive for dizziness Cardio Chest Pain: No Palpitations: No Edema: None Muscle aches with walking: None Resp Respiratory: Positive for SOB with activity; negative for SOB at rest, SOB orthopnea\SOB lying down or paroxysmal nocturnal dyspnea GI GI: Negative nausea, black,tarry stools, bright, red blood in stools or vomiting blood/hematemesis : Negative for hematuria or frequent nighttime urination/ nocturia Musc Musc: Negative for muscle aches/ myalgia Neuro Neuro: Positive for dizziness and lightheadedness; negative for weakness, near syncope or syncope Endo Endo: Negative for fatigue Cardiology Exam Const Appearance: cooperative, healthy appearing, comfortable and no acute distress Nutritional Appearance: obese and well nourished Orientation: alert, awake and oriented x3 Head Head: normal to inspection Ears: hearing grossly normal bilaterally Nose: external nose normal Mouth: oral mucosae normal Eyes General: appearance normal, both eyes and all related structures Pupils: PERRL EOM: EOM intact bilaterally Neck Neck: no JVD and normal visual inspection Carotids: normal carotid upstroke Chest Chest inspection: normal inspection of the chest, normal respiratory effort and symmetric chest movement Auscultation: Bilateral: Clear to Auscultation Cardio Rate: regular rate Rhythm: regular rhythm Heart sounds: S1 normal and S2 normal; negative rub, gallop or murmur GI GI: normal to inspection and obese Neuro General: alert, awake, oriented x3 and CN's II-XI intact bilaterally Skin Skin: no rashes or lesions noted Extremities Pulses: Normal: Right Posterior Tibial Pulse, Left Posterior Tibial Pulse, Right Radial Pulse, Left Radial Pulse Lower Extremity Edema: None: Bilateral Psych Psychological: normal affect Assessment AND Plan 1. Atherosclerosis of chitina coronary artery of chitina heart without angina pectoris I25.10 CABG- THRASHER to LAD, reverse SVG to post lateral, reverse SVG to OM 01/21/2017 Plan Patient denies any chest pain, arm pain, jaw pain, neck pain, or fatigue suggestive of angina at this time. We will continue to monitor this. We will not make any medication regimen changes and will continue risk factor modification. Orders Orders: 2. NSVT (nonsustained ventricular tachycardia) I47.2 Plan His 30-day event monitor showed nonsustained ventricular tachycardia of 4 beats and 12 beats. Due to this in conjunction with his history of coronary artery bypass surgery he will undergo a repeat heart catheterization to assess coronary artery status. His EKG in office showed sinus bradycardia with a first-degree AV block at a rate of 57 bpm. He was also instructed to increase his metoprolol to 25 mg twice daily and he will begin amiodarone 200 mg p.o. daily. No atrial fibrillation was noted on 30-day event monitor. Orders Orders: 3. Hx of CABG Z95.1 CABG- THRASHER to LAD, reverse SVG to post lateral, reverse SVG to OM 01/21/2017 Plan He will undergo further evaluation with a heart catheterization. He has been tolerating Plavix therapy. His CBC will be rechecked prior to heart catheterization to ensure safety. At this time, he will continue with current medications. Orders Orders: 4. Essential (primary) hypertension I10 Plan Patient's blood pressure is well-controlled. We will continue to monitor this. We will not make any medication regimen changes. Orders Orders: 5. Hyperlipidemia, unspecified hyperlipidemia type E78.5 Plan Lipid panel from January 2018 showed cholesterol: 147, HDL: 36, LDL: 86, triglycerides: 125. He is currently not on cholesterol lowering medication. Further recommendation will be made based on results of his heart catheterization that may include non-statin medication. Orders Orders: Plan Detail Other Orders Orders: Other Medications New: Additional Comments Thank you for allowing us to participate in the patients plan of care, if you have any questions please do not hesitate to call. This note was generated using a voice recognition system and there may be incorrect words, spelling or punctuation that were not noted when reviewing the office note prior to saving. Coding Level of Care Code Off vis,est,level 4 Diagnoses Atherosclerosis of chitina coronary artery of chitina heart without angina pectoris I25.10 NSVT (nonsustained ventricular tachycardia) I47.2 Hx of CABG Z95.1 Essential (primary) hypertension I10 Hyperlipidemia, unspecified hyperlipidemia type E78.5 Hyperlipidemia type: unspecified Coding Level of Care Code Off vis,est,level 4 Diagnoses Atherosclerosis of chitina coronary artery of chitina heart without angina pectoris I25.10 NSVT (nonsustained ventricular tachycardia) I47.2 Hx of CABG Z95.1 Essential (primary) hypertension I10 Hyperlipidemia, unspecified hyperlipidemia type E78.5 Hyperlipidemia type: unspecified Supplemental Info Supplemental Information Echocardiogram from January 2018 showed moderately dilated left ventricle, estimate ejection 45%, stage I diastolic dysfunction, moderate global hypokinesis of left ventricle, mildly dilated right ventricle, mildly enlarged left atrium, mildly enlarged right atrium, mild posterior directed mitral valve insufficiency, mild tricuspid valve insufficiency, RVSP of 37 mmHg, mild pulmonary hypertension, and when compared to echo report on 08/03/2015, no appreciable changes noted. 30-day event monitor from January 2018 showed a sinus rhythm, second-degree AV block Mobitz 1, PACs, PVCs,and nonsustained wide-complex tachycardia consistent with NSVT of 4 beats and 12 beats. Labs LDL Cholesterol 86 mg/dL (0-130) 02/09/18 HDL Cholesterol 36 mg/dL (40-) L 02/09/18 Triglycerides 125 mg/dL (-199) 02/09/18 VLDL Cholesterol 25 mg/dL (5-40) 02/09/18 Diagnostics Electrocardiogram 03/29/18 Echocardiogram 02/08/18 Chest X-Ray 02/08/18 03/29/18 1505 <Electronically signed by Jesús COHN> Date Jeúss COHN Cosigner Signature: Date (if applicable) CC: Ellis De Luna MD CBC W/DIFF, AUTOMATED Collected: 03/29/2018 Status: F Source: [place] 2:48 PM [facility] [place] TYPE CODE TESTS RESULT OUT OF RANGE REFERENCE UNITS LAB L100.1000 4.4-11.0 K/mm3 Normal WBC 6.5 LAB L100.1200 4.6-6.2 M/mm3 Normal RBC 4.87 LAB L100.1300 13.0-16.5 g/dl Normal HGB 13.8 LAB L100.1400 40-54 % Normal HCT 43.3 LAB L100.1500 80-94 fL Normal MCV 88.9 LAB L100.1600 27.0-32.0 pg Normal MCH 28.3 LAB L100.1700 32-36 g/gl Low MCHC 31.9 LAB L100.1810 11.6-14.6 % High RDW CV 14.9 LAB L100.1820 35.1-43.9 fl High RDW SD 47.9 LAB L100.1900 150-450 K/mm3 Normal PLT 181 LAB L100.2000 6.2-12.0 fl Normal MPV 11.5 LAB L100.2100 47-70 % Normal NEUT% 59.7 LAB L100.2200 19-41 % Normal LY% 28.1 LAB L100.2300 0-10 % Normal MONO% 8.8 LAB L100.2400 0-5 % Normal EO% 2.6 LAB L100.2500 0-1 % Normal BASO% 0.5 LAB L100.2550 0.0-0.9 % Normal IM GRAN % 0.300 Result Comment: IG% - Immature Granulocytes (promyelocytes, myelocytes and metamyelocytes) > 1% indicates that a LEFT SHIFT is Present. LAB L100.2620 2.0-7.7 X10 3/uL Normal Absolute Neut 3.9 LAB L100.2720 0.83-4.51 X10 3/ul Normal Absolute Lymph 1.83 Performed By: #### L100.0100 #### [facility] [address] [place], [address] BASIC METABOLIC Collected: 03/29/2018 Status: F Source: [place] [facility] ([facility]) 2:48 PM [facility] [place] TYPE CODE TESTS RESULT OUT OF RANGE REFERENCE UNITS LAB L501.0100 74-106 mg/dL High GLU 184 Result Comment: Fasting Glucose result greater than or equal to 126 mg/dL suggests DIABETES MELLITUS per A.D.A. criteria. Please note revised GLUCOSE reference range effective 2017. LAB L501.1000 7-18 mg/dL High BUN 21 LAB L501.1100 0.70-1.30 mg/dL Normal CREAT,SERUM 1.12 Result Comment: The validity of the calculated GFR AND GFRAA in patients over 70 years has not been determined. Clinical correlation is essential. LAB L501.1110 >60 mL/min Normal EST GFR 69 Result Comment: Non- GFR Calc LAB L501.1115 >60 mL/min Normal EST GFR - AA 84 Result Comment: GFR Calc LAB L501.1300 10-20 RATIO Normal BUN/CRE 18.8 LAB L501.2200 8.5-10.1 mg/dL CA Normal 8.6 LAB L501.5300 136-145 mmol/L NA Normal 142 LAB L501.5600 3.5-5.1 mmol/L K Normal 4.3 LAB L501.5900 98-107 mmol/L High CL 109 LAB L501.6100 21.0-32.0 mmol/L Normal CO2 25.0 LAB L501.6200 5-15 Normal GAP 8 Performed By: #### L500.2500 #### [facility] [address] [place], [address] PROTHROMBIN TIME W/INR Collected: 03/29/2018 Status: F Source: [place] 2:48 PM [facility] [place] TYPE CODE TESTS RESULT OUT OF RANGE REFERENCE UNITS LAB L300.4150 11.7-14.9 SECONDS Normal PROTIME 13.1 LAB L300.4200 Normal INR 1.0 Performed By: #### L300.3900, L300.4310 #### [facility] [address] [place], [address] PARTIAL THROMBOPLAST Collected: 03/29/2018 Status: F Source: [place] TIME 2:48 PM [facility] [place] TYPE CODE TESTS RESULT OUT OF RANGE REFERENCE UNITS LAB L300.4310 24.1-36.2 Seconds Normal PTT 31.2 Performed By: #### L300.3900, L300.4310 #### [facility] [address] [place], [address] 12 LEAD EKG PERFORMED Observed: 03/29/2018 Status: F [place] [facility] PM [facility] [place] [facility] [address] [place] [address] 12 Lead EKG performed [place] [facility] 03/29/18 1404 MR#: [id number] Acct: [id number] Name: MICKY ROLDAN Rep #: [id number] : 1950 67 From: Jesús Hensley CORE STRIPPER-C Attending Dr: Jesús Hensley CORE STRIPPER Status: DEP AMB Ordering Dr: Jesús Hensley CORE STRIPPER-C Date: 03/29/18 Location: [facility] [place] Sex: M C Admitted: BMS/12 Lead EKG performed by [facility] ECG Report Interpretation Sinus Bradycardia -First degree A-V blockLeft axis deviationRight bundle branch blockPossible Left anterior fascicular blockABNORMAL Electronically signed on 03/31/2018 at 18:12 by Wali Milton Software Version [id number] 03/31/18 1814 Date Jesús Hensley CORE STRIPPER-C CC: Ellis De Luna MD Date Dictated: 03/29/18 1404 Date Transcribed: 03/29/18 140 Associate Designer: MUSTAPHA Signed CNPN Observed: 03/29/2018 Status: COMPLETED Source: [place] 12:00 AM [facility] MICKY ROLDAN ([id number]) 1950 M Date Time Provider Department 03/29/18 ELLIS DE LUNA [facility] During your visit today, we recorded the following information about you: Allergies As of Date: 03/29/2018 Noted Allergy Reaction CRESTOR (ROSUVASTATIN CALCIUM) 09/07/2017 17 - Myalgia LANOLIN 02/15/2008 9 - Itching LIPITOR (ATORVASTATIN CALCIUM) 09/07/2017 17 - Myalgia Date Reviewed: 03/01/2018 Reviewed by: Elder Brenda Adiel [employer]DER SUPERVISOR - Fully Assessed Reason for Visit: Outside Lab Results [753] Order(s):BMP - EXTERNAL [[id number]] Order #: [id number] CBCDIF (EXTERNAL) [[id number]] Order #: [id number] BMP - EXTERNAL [[id number]] Order #: [id number] Prescriptions as of 03/29/2018 Sig: ASPIRIN 81 MG TABLET,DELAYED * Take 81 mg by mouth once cindy* MECLIZINE 12.5 MG TABLET 3 TIMES DAILY NEEDED PRN F* HUMALOG MIX 75-25 KWIKPEN U-1* INJECT 28 UNITS SUBCUTANEOUSL* METFORMIN 500 MG TABLET Take 1 tablet by mouth twice * LOSARTAN 25 MG TABLET Take 1 tablet by mouth once d* INSULIN LISPRO AND LISPRO PROT * 34 units in AM and 30 units i* X METOPROLOL TARTRATE 25 MG TAB* Take 0.5 tablets by mouth twi* LEVOTHYROXINE 125 MCG TABLET TAKE 1 TABLET BY MOUTH ONCE D* CLOPIDOGREL 75 MG TABLET TAKE 1 TABLET BY MOUTH EVERY * BLOOD SUGAR DIAGNOSTIC STRIPS Test blood sugar 3-4 times da* PEN NEEDLE, DIABETIC 31 GAUGE* Use with 75/25 twice daily ACETAMINOPHEN 325 MG TABLET Take 2 tablets by mouth every* MULTI VITAMIN ORAL Take by mouth. CURCUMIN MISC More... Problem List As Of Date 03/29/2018 Noted Resolved Idiopathic peripheral neuropathy [G60.9] Pyoderma, unspecified [L08.0] INVALID FOR* Other acne [L70.8] INVALID FOR* Seborrheic dermatitis, unspecified [L21.9] INVALID FOR* Other psoriasis [L40.8] INVALID FOR* XEROSIS///SEBACEOUS GLAND DIS NEC [L73.8] INVALID FOR* Other specified disease of nail [L60.8] INVALID FOR* Other seborrheic keratosis [L82.1] INVALID FOR* H/O balance disorder [Z87.898] More... PVC (premature ventricular contraction) [I49.3] Diabetic eye exam (HCC) [Z01.00, E11.9] INVALID FOR* More... Dyslipidemia [E78.5] INVALID FOR*02/19/2014 Well adult exam [Z00.00] INVALID FOR* More... Colon cancer screening [Z12.11] INVALID FOR* Acquired hypothyroidism [E03.9] INVALID FOR* Mixed hyperlipidemia [E78.2] INVALID FOR* Prostate cancer screening [Z12.5] INVALID FOR* Uncontrolled type 2 diabetes mellitus without c*INVALID FOR*06/04/2017 Essential hypertension with goal blood pressure*INVALID FOR* Ex-smoker [Z87.891] INVALID FOR* More... Plantar fasciitis, left [M72.2] INVALID FOR* Multiple lung nodules [R91.8] INVALID FOR* More... History of CVA (cerebrovascular accident) [Z86.*INVALID FOR* More... History of UT (myocardial infarction) [I25.2] INVALID FOR* More... Coronary artery disease due to lipid rich plaqu*INVALID FOR* More... 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] INVALID FOR* More... Uncontrolled type 2 diabetes mellitus with diab*INVALID FOR* History of ischemic cerebrovascular accident (C*INVALID FOR* More... Iron deficiency anemia [D50.9] INVALID FOR* Encounter Status:Closed by VERONICA COY MA on 03/29/18 CONSULTATION Observed: 03/08/2018 Status: F Source: [place] 1:05 PM [facility] Medical Records Department [address] [place] [id number] Consultation 02/09/18 1123 MR#: [id number] Acct: [id number] Name: MICKY ROLDAN Rep #: [id number] : 1950 67 From: Real Yadav MD PCP: Ellis De Luna MD Status: DIS IN Y [id number] Problem List (1) Stroke Status: Acute (2) Dizziness Status: Chronic Reason for Consult Date of Consultation: 02/09/18 Reason for Consultation: Stroke, dizziness History of Present Illness: The patient is a 67 year old CM with PMH HTN, HLD, DM, H/O Stroke (acute left MCA stroke in July 2017, TIA following CABG in January 2017), CAD s/p CABG, hypothyroidism, WILLIAN not on CPAP, H/O marijuana/cocaine abuse in the past, Ex-ETOH abuse (quit about 3 yrs ago) admitted with dizziness and right arm numbness. Per patient he had a concussion in June 2017 at work, had right shoulder and head injury, since then has been having dizziness off and on. He has been having right forearm numbness for 2 days, since 02/07/18 when he woke up with the symptom but did not get any medical advice, then yesterday (02/08/18) he was having outpatient CT chest done for chronic cough when he suddenly became dizzy, was wobbly, and was admitted since he continued to have right arm numbness for further stroke work up. NIHSS was 0 on admission per ED documentation. He was not an Ivtpa candidate. Patient also complaints of tinnitus for many years, feels his ears are sore. Complaints of dizziness since his concussion. 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 Per patient he denies any focal motor weakness, STAFFORD, visual disturbances, speech disturbances or sensory loss at present, per patient his dizziness is slightly better than before. He was on statins in the past and could not tolerate the same. MRI brain done on admission revealed acute lacunar infarct in the left IC, chronic infarct in right cerebellum and right thalamus. CTA head/neck < 50% stenosis B/L ICA [] Past Medical History Past Medical History (Chronic Problems): Chronic Problems (Last Updated 02/08/18 @ 18:05 by Bernadette Maloney MD) Open wound of scalp (Chronic) Dizziness (Chronic) Essential (primary) hypertension (Chronic) Atherosclerosis of chitina coronary artery of chitina heart without angina pectoris (Chronic) CABG- THRASHER to LAD, reverse SVG to post lateral, reverse SVG to OM 01/21/2017 Hyperlipidemia (Chronic) Diabetes mellitus (Chronic) Thyroid disorder (Chronic) Medical History: Medical History (Last Updated 02/08/18 @ 18:05 by Bernadette Maloney MD) Essential (primary) hypertension (Chronic) I10 Atherosclerosis of chitina coronary artery of chitina heart without angina pectoris (Chronic) I25.10 CABG- THRASHER to LAD, reverse SVG to post lateral, reverse SVG to OM 01/21/2017 Hyperlipidemia (Chronic) E78.5 Diabetes mellitus (Chronic) E11.9 Thyroid disorder (Chronic) History of left heart catheterization Z98.890 multivessel CAD 01/19/2017 Allergies atorvastatin [From Lipitor] Adverse Reaction (Mild, Verified 02/08/18 17:17) mylagia lower leg pain lanolin Adverse Reaction (Unknown, Verified 08/01/17 10:03) Unknown Home Medications: Ambulatory Orders Medication Instructions Recorded Levothyroxine [Synthroid] 125 mcg PO DAILY 01/19/17 Multivitamin with Iron 1 ea PO DAILY 01/19/17 Surgical History: Surgical History (Last Reviewed 06/28/17 @ 09:08 by Stephany Lugo) Hx of CABG Onset Date: 01/21/17 Z95.1 THRASHER to LAD, reverse SVG to post lateral, reverse SVG to OM @ [facility] Surgical History: no surgical history Psychiatric History: No pertinent psych hx Lives: Spouse/ Significant Other Smoking Status: Former smoker Alcohol: None Drugs: None - *Family History Sibling Family History: Family History (Last Reviewed 06/28/17 @ 09:08 by Stephany Lugo) Sister CAD (coronary artery disease) Diabetes Brother CAD (coronary artery disease) History Items: Heart Disease - UT Maternal Family History: Family History (Last Reviewed 06/28/17 @ 09:08 by Stephany Lugo) Sister CAD (coronary artery disease) Diabetes Brother CAD (coronary artery disease) History Items: No pertinent history Paternal Family History: Family History (Last Reviewed 06/28/17 @ 09:08 by Stephany Lugo) Sister CAD (coronary artery disease) Diabetes Brother CAD (coronary artery disease) History Items: No pertinent history Review of Systems Constitutional: Reports: - - complete ROS negative except as documented in HPI Patient Problems: Active and Suspected Problems (Last Updated 02/08/18 @ 18:05 by Bernadette Maloney MD) Stroke (Acute) - Physical Exam General: Alert HEENT: Normocephalic Neck: Supple Lungs: Clear to auscultation Cardiovascular: Normal S1, Normal S2 Abdomen: Bowel Sounds Present Extremities: No cyanosis Neurological: - - consious, alert, AoAx3, CN 2-12 grossly intact, power 5/5 all 4 extremities, no sensory loss at present, no cerebellar signs, Reflexes + B/L B/S/T/K/A, gait deferred. Psych/Mental Status: Normal Affect Vital Signs Temp Pulse Resp BP Pulse Ox 97.8 F 58 L 16 163/72 H 94 02/09/18 09:05 02/09/18 10:27 02/09/18 09:05 02/09/18 10:27 02/09/18 09:05 Oxygen Delivery Method Room Air Weight: 107.5 kg Body Mass Index (BMI) 31.2 Finger Stick Blood Glucose 220 Intake and Output for Last 24 Hours Intake Total 650 / 650 500 / 500 Balance 650 / 650 500 / 500 Laboratory Tests Past 24 Hrs WBC 6.2 RBC 5.13 Hgb 14.2 Hct 43.8 MCV 85.4 MCH 27.7 MCHC 32.4 RDW 15.5 H WBC RBC Hgb Hct MCV MCH MCHC RDW RDW Differential Plt Count MPV Immature Gran % (Auto) POC Glucose POC Glucose 222 H 129 H 211 H POC Glucose 220 H Assessment/Plan All Active Problems (Last Updated 02/08/18 @ 18:05 by Bernadette Maloney MD) Stroke (Acute) Ischemic stroke (Acute) CVA (cerebral vascular accident) (Acute) The patient is a 67 year old CM with PMH HTN, HLD, DM, H/O Stroke (acute left MCA stroke in July 2017, TIA following CABG in January 2017), CAD s/p CABG, hypothyroidism, WILLIAN not on CPAP, H/O marijuana/cocaine abuse in the past, Ex-ETOH abuse (quit about 3 yrs ago) admitted with dizziness and right arm numbness. Per patient he had a concussion in June 2017 at work, had right shoulder and head injury, since then has been having dizziness off and on. He has been having right forearm numbness for 2 days, since 02/07/18 when he woke up with the symptom but did not get any medical advice, then yesterday (02/08/18) he was having outpatient CT chest done for chronic cough when he suddenly became dizzy, was wobbly, and was admitted since he continued to have right arm numbness for further stroke work up. NIHSS was 0 on admission per ED documentation. He was not an Ivtpa candidate. Patient also complaints of tinnitus for many years, feels his ears are sore. Complaints of dizziness since his concussion. 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 Per patient he denies any focal motor weakness, STAFFORD, visual disturbances, speech disturbances or sensory loss at present, per patient his dizziness is slightly better than before. He was on statins in the past and could not tolerate the same. MRI brain done on admission revealed acute lacunar infarct in the left IC, chronic infarct in right cerebellum and right thalamus. CTA head/neck < 50% stenosis B/L ICA Impression Acute Lacunar left IC infarct (Left MCA infarct)-likely small vessel disease Dizziness-likely peripheral etiology vs possible post-concussion syndrome Plan -Started On ASA and Plavix. Dual AP for 3 weeks then switch to single AP with Plavix. Bleeding risks discussed in detail -Pravastatin 40 mg PO q hs if not able to tolerate Lipitor -MRI brain and CTA head/neck reviewed -TTE-p -LDL-86, [id number] -30 day cardiac event recorder -Goal BP < 130/80 and goal Hba1c < 7% -Stroke risk factors discussed and stroke education provided -Vestibular therapy and ENT consult. Trial of Meclizine 12.5 mg PO q 8 hrly PRN dizziness -Fall precautions -PT/OT -GI/DVT prophylaxis -Further medical management per primary team. -Follow up with Neurology as outpatient in 2-3 weeks -Please call with questions if any -Thank you for allowing us to participate in patient's care and management Code Visit Inpatient E AND M: [id number] Init Hosp L3 03/08/18 1305 <Electronically signed by Real Yadav MD> Date Real Yadav MD Cosigner Signature (if applicable): Date CC: Medhat Yadav MD; Ellis De Luna MD Signed CNPN Observed: 03/03/2018 Status: COMPLETED Source: [place] 12:00 AM [facility] REPOSITORY Telephone ([facility]) MICKY ROLDAN ([id number]) 1950 M Date Time Provider Department 03/03/18 LORI JEAN-BAPTISTE (MARIO) [facility] During your visit today, we recorded the following information about you: Lori Jean-Baptiste RN APRN.PRINTER SLOTTER HELPER 03/03/2018 7:49 PM Signed Please let the patient know that the CBC was actually within normal range. Keep taking the Flintstones vitamins. The stool test was negative for hidden blood. Proceed with the [place] in March. Lori Jean-Baptiste RN APRN.ROVERTO Chun LPN 03/04/2018 10:36 AM Signed Left a detailed message for patient with information listed below. Elder Chun LPN Allergies As of Date: 03/03/2018 Noted Allergy Reaction CRESTOR (ROSUVASTATIN CALCIUM) 09/07/2017 17 - Myalgia LANOLIN 02/15/2008 9 - Itching LIPITOR (ATORVASTATIN CALCIUM) 09/07/2017 17 - Myalgia Date Reviewed: 03/01/2018 Reviewed by: Elder Chun LPN - Fully Assessed Reason for Visit: Results [95] Prescriptions as of 03/03/2018 Sig: ASPIRIN 81 MG TABLET,DELAYED * Take 81 mg by mouth once cindy* MECLIZINE 12.5 MG TABLET 3 TIMES DAILY NEEDED PRN F* HUMALOG MIX 75-25 KWIKPEN U-1* INJECT 28 UNITS SUBCUTANEOUSL* METFORMIN 500 MG TABLET Take 1 tablet by mouth twice * METOPROLOL TARTRATE 25 MG TAB* Take 0.5 tablets by mouth twi* LOSARTAN 25 MG TABLET Take 1 tablet by mouth once d* INSULIN LISPRO AND LISPRO PROT * 34 units in AM and 30 units i* LEVOTHYROXINE 125 MCG TABLET TAKE 1 TABLET BY MOUTH ONCE D* CLOPIDOGREL 75 MG TABLET TAKE 1 TABLET BY MOUTH EVERY * BLOOD SUGAR DIAGNOSTIC STRIPS Test blood sugar 3-4 times da* PEN NEEDLE, DIABETIC 31 GAUGE* Use with 75/25 twice daily ACETAMINOPHEN 325 MG TABLET Take 2 tablets by mouth every* MULTI VITAMIN ORAL Take by mouth. CURCUMIN MISC More... Problem List As Of Date 03/03/2018 Noted Resolved Idiopathic peripheral neuropathy [G60.9] Pyoderma, unspecified [L08.0] INVALID FOR* Other acne [L70.8] INVALID FOR* Seborrheic dermatitis, unspecified [L21.9] INVALID FOR* Other psoriasis [L40.8] INVALID FOR* XEROSIS///SEBACEOUS GLAND DIS NEC [L73.8] INVALID FOR* Other specified disease of nail [L60.8] INVALID FOR* Other seborrheic keratosis [L82.1] INVALID FOR* H/O balance disorder [Z87.898] More... PVC (premature ventricular contraction) [I49.3] Diabetic eye exam (HCC) [Z01.00, E11.9] INVALID FOR* More... Dyslipidemia [E78.5] INVALID FOR*02/19/2014 Well adult exam [Z00.00] INVALID FOR* More... Colon cancer screening [Z12.11] INVALID FOR* Acquired hypothyroidism [E03.9] INVALID FOR* Mixed hyperlipidemia [E78.2] INVALID FOR* Prostate cancer screening [Z12.5] INVALID FOR* Uncontrolled type 2 diabetes mellitus without c*INVALID FOR*06/04/2017 Essential hypertension with goal blood pressure*INVALID FOR* Ex-smoker [Z87.891] INVALID FOR* More... Plantar fasciitis, left [M72.2] INVALID FOR* Multiple lung nodules [R91.8] INVALID FOR* More... History of CVA (cerebrovascular accident) [Z86.*INVALID FOR* More... History of UT (myocardial infarction) [I25.2] INVALID FOR* More... Coronary artery disease due to lipid rich plaqu*INVALID FOR* More... 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] INVALID FOR* More... Uncontrolled type 2 diabetes mellitus with diab*INVALID FOR* History of ischemic cerebrovascular accident (C*INVALID FOR* More... Iron deficiency anemia [D50.9] INVALID FOR* Encounter Status:Closed by ELDER CHUN LPN on 03/04/18 FECAL OCCULT BLD Collected: 03/01/2018 Status: F Source: [facility] 12:50 PM [facility] REPOSITORY TYPE CODE TESTS RESULT OUT OF REFERENCE UNITS RANGE LAB IFO Negative Immuno Negative FOB Result Comment: This test was developed and its performance characteristics determined by [facility] [place] ([facility]). It has not been cleared or approved by the FDA. [facility] is regulated under CLIA as qualified to perform high-complexity testing. This test is used for clinical purposes. It should not be regarded as investigational or for research. Performed By: #### IFOBT #### [place] [address] CBC Collected: 03/01/2018 Status: F Source: [place] 10:59 AM [facility] REPOSITORY TYPE CODE TESTS RESULT OUT OF REFERENCE UNITS RANGE LAB WBC 3.70-11.00 k/uL WBC 7.89 LAB RBC 4.20-6.00 m/uL RBC 5.00 LAB HGB 13.0-17.0 g/dL Hemoglobin 14.0 LAB HCT 39.0-51.0 % Hematocrit 44.8 LAB MCV 80.0-100.0 fL MCV 89.6 LAB MCH 26.0-34.0 pG MCH 28.0 LAB MCHC 30.5-36.0 g/dL MCHC 31.3 LAB RDWCV 11.5-15.0 % RDW-CV High 16.2 LAB PLTCT 150-400 k/uL Platelet Count 190 LAB MPV 9.0-12.7 fL MPV 11.9 LAB ABSNUC <0.01 k/uL Absolute nRBC <0.01 Performed By: #### CBC, AMYL, LIPA #### [place] [address] AMYLASE Collected: 03/01/2018 Status: F Source: [place] 10:59 AM [facility] REPOSITORY TYPE CODE TESTS RESULT OUT OF REFERENCE UNITS RANGE LAB AMYL 30-104 U/L High Amylase 118 Performed By: #### CBC, AMYL, LIPA #### [place] [address] LIPASE Collected: 03/01/2018 Status: F Source: [place] 10:59 AM [facility] REPOSITORY TYPE CODE TESTS RESULT OUT OF REFERENCE UNITS RANGE LAB LIPA 16-61 U/L High Lipase 93 Performed By: #### CBC, AMYL, LIPA #### [facility] [address] [place], [place] [address] HISTORY PHYSICAL Observed: 03/01/2018 Status: COMPLETED Source: [place] 9:40 AM [facility] REPOSITORY HNO ID: [id number] Author: Lori Pena) Jerilyn Service: (none) Author Type: Nurse Practitioner Type: HANDP Filed: 03/01/2018 12:41 PM Note Text: Micky Floress a 67 year old male who is a consultation requested by Dr. De Luna for an opinion regarding LARRY. My final recommendations will be communicated back to the requesting physician by way of shared Medical record. The patient has not been seen previously. The patient denies a family history of colon cancer. The patient has a significant health history that includes history of strokes, CAD prior NSTEMI, CABG, HTN - to see [facility]. Also IDDM and hypothyroid. The patient was last ween by Dr. Olivera on 01/25/18. That note has been reviewed. Component Latest Ref Rng AND Units 08/27/2017 09/07/2017 01/25/2018 WBC 3.70 - 11.00 k/uL 8.04 6.68 5.85 RBC 4.20 - 6.00 m/uL 4.27 4.40 4.28 Hemoglobin 13.0 - 17.0 g/dL 12.3 (L) 12.4 (L) 11.9 (L) Hematocrit 39.0 - 51.0 % 38.3 (L) 41.0 38.2 (L) MCV 80.0 - 100.0 fL 89.7 93.2 89.3 MCH 26.0 - 34.0 pG 28.8 28.2 27.8 MCHC 30.5 - 36.0 g/dL 32.1 30.2 (L) 31.2 RDW-CV 11.5 - 15.0 % 15.7 (H) 16.1 (H) 15.6 (H) Platelet Count 150 - 400 k/uL 200 201 202 MPV 9.0 - 12.7 fL 11.9 11.7 12.0 Neut% % 63.5 63.2 Abs Neut (ANC) 1.45 - 7.50 k/uL 4.24 3.69 Lymph% % 24.1 23.9 Abs Lymph 1.00 - 4.00 k/uL 1.61 1.40 Brown% % 9.7 9.7 Abs Brown <0.87 k/uL 0.65 0.57 Eosin% % 2.1 2.7 Abs Eosin <0.46 k/uL 0.14 0.16 Baso% % 0.6 0.5 Abs Baso <0.11 k/uL 0.04 0.03 Nucleated Reds 0 /100 WBC 0.0 0.0 Absolute nRBC <0.01 k/uL <0.01 <0.01 <0.01 Diff Type Auto Diff Auto Diff Component Latest Ref Rng AND Units 09/07/2017 Iron 41 - 186 ug/dL 32 (L) TIBC 232 - 386 ug/dL 277 Transferrin Saturation 15 - 57 % 12 (L) Vitamin B12 232 - 1,245 pg/mL 835 Ferritin 30.3 - 565.7 ng/mL 100.3 Folate >4.7 ng/mL >20.0 Component Latest Ref Rng AND Units 08/27/2017 Occult Blood, Stool Negative Negative On chart review, the patient was seen by Carrie Fernández on 02/15/18 for a post hospital follow up of 02/09/18 from [facility] where he was admitted for Acute CVA, lacunary left MCA. Her note has been reviewed. Hospital Course: ?The patient is a 67 year old M with pmhx 2 prior strokes in about the last year, concussion this past year, NSTEMI with CABG about 1 year ago, htn, hld, DMt2, who presented to the ER with c/o Right sided arm numbness and tingling with no weakness, dizziness, that started the day prior on waking up. He had CT brain which was negative, and indeterminate troponin. MRI brain was obtained - this revealed an acute left MCA infarct. Neuro was consulted and he was admitted to the PCU on cardiac monitoring Plavix was continued, aspirin added. He refused statin therapy as he has tried two that gave him severe muscle stiffness - could not walk. An echo was obtained which was unremarkable. CTA of the head and neck did not reveal significant stenosis. He was started on meclizine prn. Neuro felt the dizziness was more likely peripheral or post concussive syndrome. He may benefit from outpatient ENT referral. His symptoms improved overnight. He had no events on tele. We arranged for him to have a 30 day cardiac event monitor at [place]. He will follow up for this with Dr. Milton. He will also need to see Dr. Yadav (neuro) 3-4 weeks, and his PCP 1-2 weeks. The patient tells me that he has the 30 day manager field services on and has been given an envelop to send it back. He hasn't followed up with Dr. Milton since his hospital discharge. He states they gave me an appointment that I didn't know anything about. He tells me that he plans to stop by Dr. Milton's office this morning, to set up an appointment. Taking Palvix since earlier this year. He tells me he doesn't have a follow up with neurology yet. He didn't want to follow up with the one he saw in hospital. Will see if Dr. De Luna has any recommendations. Presenting complaint: The patient presents today reporting that he started the children's chewable vitamins, as Dr. De Luna recommended, and started feeling much more energy this week. The patient tells me that he only gets heartburn if he eats anything with soybean oil in it. The patient denies a change in bowel routine. Having a bowel movement anywhere from every couple three days, to having two or three in a day, if it's loose ~ sometimes more. No blood or black stool. States it's nice and brown. The patient reports right lateral abdominal pain that is constant. He points to an area. He tells me that he notices it more when he is laying in bed. He tells me having a bowel movement will ease it considerably. REVIEW OF SYSTEMS: GENERAL: No weight loss, malaise or fevers Last 10 Encounter Wt Readings: Date: Wt: 03/01/2018 110.5 kg (243 lb 9.6 oz) 02/15/2018 108.9 kg (240 lb) 01/25/2018 108.9 kg (240 lb) 09/07/2017 107 kg (236 lb) 08/06/2017 104.9 kg (231 lb 3.2 oz) 07/14/2017 105.2 kg (232 lb) 07/01/2017 106.6 kg (235 lb) 06/02/2017 108 kg (238 lb) 02/25/2017 106.1 kg (234 lb) 01/11/2017 108.7 kg (239 lb 9.6 oz) RESPIRATORY: Denies new or worsening cough, wheezing or shortness of breath. CARDIOVASCULAR: Reporting 2 strokes within the past year. Recent acute left MCA infarct. History of UT, CABG x3. Hasn't followed up with [facility]. GI: The patient states that his appetite has been good. He does get hungry. There has been no nausea, no vomiting. He denies dysphagia and denies odynophagia. There has not been indigestion or heartburn. There has not been regurgitation. Bowel habits have been irregular. There has partially been diarrhea. There has not been constipation. The patient denies rectal bleeding. There has not been melena. Daily abdominal pain that is located in the right abdomen - laterally. MUSCULOSKELETAL: Positive for myaglias PSYCH: Negative for sleep disturbance, mood disorder and recent psychosocial stressors. HEMATOLOGY/LYMPHOLOGY Positive for See HPI and also on Plavix ENDOCRINE: Positive for diabetes mellitus on insulin (poorly controlled) and hypothyroid. NEURO: Positive for dizziness and sometimes feeling unbalanced - hasn't followed up with Neuro. All other reviewed and negative other than HPI. PAST MEDICAL HISTORY Diagnosis Date - ACNE NEC 09/26/2007 - Acquired hypothyroidism 02/20/2015 - Coronary artery disease due to lipid rich plaque 02/25/[address] Milton - DISEASES OF NAIL NEC 09/26/2007 - Essential hypertension with goal blood pressure less than 130/85 09/02/2015 - FOLLICULITIS///HAIR DISEASES NEC 09/26/2007 - H/O balance disorder chronic due to frequent ear infections in the past. - History of UT (myocardial infarction) 02/25/201701/2017 - Idiopathic peripheral neuropathy - Ischemic cerebrovascular accident (CVA) ([facility]) 08/02/201707/2017: left temporal - Mixed hyperlipidemia 02/20/2015 - Multiple lung nodules 09/30/[address] 09/2016, repeat CT 03/2017 - NEVUS///BENIGN OLEGARIO SKIN TRUNK 09/26/2007 - Other psoriasis 09/26/2007 - Other specified idiopathic peripheral neuropathy - PRURITIC DISORDER NOS 09/26/2007 - PVC (premature ventricular contraction) - PYODERMA NOS 09/26/2007 - Right-sided cerebrovascular accident (CVA) ([facility]) 02/09/2017 MRI at [place] 01/2017 showed right cortical stroke. - S/P CABG x 3 02/25/2017 01/22/2017 Following [facility]. - SEBORRHEIC DERMATITIS NOS 09/26/2007 - SEBORRHEIC KERATOSIS NOS 12/16/2007 - Shoulder pain 05/05/2013 - SOLAR LENGINES////DYSCHROMIA OTHER 12/16/2007 - Type II or unspecified type diabetes mellitus without mention of complication, not stated as uncontrolled - Uncontrolled type 2 diabetes mellitus with diabetic neuropathy, with long-term current use of insulin (HCC) 06/04/2017 - Unspecified hypothyroidism PAST SURGICAL HISTORY Procedure Laterality Date - 2D ECHO (EXEP) 01/2017 EF=50-55%, with nl function - 2D ECHO (EXEP) 08/02/2017 EF=53%, mild infante dysf, mild UT and TI - NONE - PAST SURGICAL HISTORY OF 01/22/2017 CABG x3 FAMILY HISTORY Problem Relation Age of Onset - other (toxic shock) Mother - None Father - Thyroid Sister Current Outpatient Prescriptions: aspirin, enteric coated (ASPIRIN LOW DOSE) 81 mg EC tablet Take 81 mg by mouth once daily. Disp: Rfl: meclizine (ANTIVERT) 12.5 mg tab 3 TIMES DAILY NEEDED PRN For Dizziness Disp: Rfl: HUMALOG MIX 75-25 KWIKPEN 100 unit/mL (75-25) inpn INJECT 28 UNITS SUBCUTANEOUSLY TWICE DAILY WITH MEALS. Disp: 5 Pen Rfl: 3 metFORMIN (GLUCOPHAGE) 500 mg tablet Take 1 tablet by mouth twice daily. Disp: 60 tablet Rfl: 5 metoprolol tartrate, short acting, (LOPRESSOR) 25 mg tablet Take 0.5 tablets by mouth twice daily. Disp: 30 tablet Rfl: 5 losartan (COZAAR) 25 mg tablet Take 1 tablet by mouth once daily. Disp: Rfl: insulin 75/25 lispro protamine/lispro units/mL (HUMALOG MIX 75-25 KWIKPEN) 100 unit/mL (75-25) inpn 34 units in AM and 30 units in the PM Disp: Rfl: levothyroxine (SYNTHROID) 125 mcg tablet TAKE 1 TABLET BY MOUTH ONCE DAILY. TAKE ON EMPTY STOMACH. FOR THYROID. Disp: 90 tablet Rfl: 1 clopidogrel (PLAVIX) 75 mg tablet TAKE 1 TABLET BY MOUTH EVERY DAY Disp: 30 tablet Rfl: 5 blood sugar diagnostic (FREESTYLE LITE STRIPS) test strip Test blood sugar 3-4 times daily Dx E11.40 on insulin Disp: 100 Strip Rfl: 11 insulin needles, DISPOSABLE, (PEN NEEDLE) 31 gauge x 5/16 ndle Use with 75/25 twice daily Disp: 180 Each Rfl: 3 acetaminophen (TYLENOL) 325 mg tablet Take 2 tablets by mouth every 6 hours as needed for Pain. Disp: Rfl: 0 MULTIVIT-MINERALS/FERROUS FUM (MULTI VITAMIN ORAL) Take by mouth. Disp: Rfl: TURMERIC (CURCUMIN MISC) Disp: Rfl: No current facility-administered medications for this visit. SOCIAL HISTORY: Patient is . He quit smoking 20 years ago. Micky reports his alcohol use as never. PHYSICAL EXAMINATION: Unsteady on his feet when going from sitting to standing. Transfers with no assistance. Blood pressure 130/73, pulse (!) 54, height 185.4 cm (6' 1), weight 110.5 kg (243 lb 9.6 oz). General Appearance: Well appearing, alert, in no acute distress, well-hydrated, well nourished. Skin: Skin color, texture, turgor normal, no suspicious rashes or lesions. Head: Normocephalic, no masses, lesions or abnormalities. Eyes: Anicteric sclera. Extraocular movements are intact. No nystagmus. Neck: Supple, no adenopathy; thyroid symmetric, normal size. Lungs: lungs clear to auscultation. No wheezing, rhonchi, rales. Heart: RRR without murmur, gallop, or rubs. No ectopy. Abdomen: Abdomen soft, non-tender. Bowel sounds normal. No masses, organomegaly. Extremities: No deformities, edema. Peripheral Pulses: Normal. Neurologic: Gait unsteady initially, corrects quickly. Sensation grossly intact. Impression: LARRY with many comorbidities Plan: RUQ US. Repeat CBC and ifobt until after he sees Dr. Milton and Neurology and is cleared for any procedures. Would plan for EGD and colonoscopy. Procedures would need to be done with MAC. Will discuss in detail with the patient, after he has seen both for follow up. I have personally interviewed and examined this patient. I have reviewed the information that the WOOD BOAT BUILDER SUPERVISOR entered for this encounter. I spent 30 minutes in the visit, with greater than 50% of the total otqs-rn-pqqe time of the visit in counseling and coordination of care. Lori Jean-Baptiste RN APRN.PRINTER SLOTTER HELPER CNOV Observed: 03/01/2018 Status: COMPLETED Source: [place] 9:40 AM [facility] REPOSITORY [facility] MICKY ROLDAN ([id number]) 1950 M Date Time Provider Department 03/01/18 9:40 AM LORI JEAN-BAPTISTE (CORE STRIPPER) [facility] During your visit today, we recorded the following information about you: Pulse Blood pressure Weight Height 54/minute 130/73 110.5 kg 1.854 m Lori Jean-Baptiste RN APRN.ROVERTO 03/01/2018 12:41 PM Signed Micky Roldan a 67 year old male who is a consultation requested by Dr. De Luna for an opinion regarding LARRY. My final recommendations will be communicated back to the requesting physician by way of shared Medical record. The patient has not been seen previously. The patient denies a family history of colon cancer. The patient has a significant health history that includes history of strokes, CAD prior NSTEMI, CABG, HTN - to see [facility]. Also IDDM and hypothyroid. The patient was last ween by Dr. Olivera on 01/25/18. That note has been reviewed. Component Latest Ref Rng AND Units 08/27/2017 09/07/2017 01/25/2018 WBC 3.70 - 11.00 k/uL 8.04 6.68 5.85 RBC 4.20 - 6.00 m/uL 4.27 4.40 4.28 Hemoglobin 13.0 - 17.0 g/dL 12.3 (L) 12.4 (L) 11.9 (L) Hematocrit 39.0 - 51.0 % 38.3 (L) 41.0 38.2 (L) MCV 80.0 - 100.0 fL 89.7 93.2 89.3 MCH 26.0 - 34.0 pG 28.8 28.2 27.8 MCHC 30.5 - 36.0 g/dL 32.1 30.2 (L) 31.2 RDW-CV 11.5 - 15.0 % 15.7 (H) 16.1 (H) 15.6 (H) Platelet Count 150 - 400 k/uL 200 201 202 MPV 9.0 - 12.7 fL 11.9 11.7 12.0 Neut% % 63.5 63.2 Abs Neut (ANC) 1.45 - 7.50 k/uL 4.24 3.69 Lymph% % 24.1 23.9 Abs Lymph 1.00 - 4.00 k/uL 1.61 1.40 Brown% % 9.7 9.7 Abs Brown <0.87 k/uL 0.65 0.57 Eosin% % 2.1 2.7 Abs Eosin <0.46 k/uL 0.14 0.16 Baso% % 0.6 0.5 Abs Baso <0.11 k/uL 0.04 0.03 Nucleated Reds 0 /100 WBC 0.0 0.0 Absolute nRBC <0.01 k/uL <0.01 <0.01 <0.01 Diff Type Auto Diff Auto Diff Component Latest Ref Rng AND Units 09/07/2017 Iron 41 - 186 ug/dL 32 (L) TIBC 232 - 386 ug/dL 277 Transferrin Saturation 15 - 57 % 12 (L) Vitamin B12 232 - 1,245 pg/mL 835 Ferritin 30.3 - 565.7 ng/mL 100.3 Folate >4.7 ng/mL >20.0 Component Latest Ref Rng AND Units 08/27/2017 Occult Blood, Stool Negative Negative On chart review, the patient was seen by Carrie Fernández on 02/15/18 for a post hospital follow up of 02/09/18 from [facility] where he was admitted for Acute CVA, lacunary left MCA. Her note has been reviewed. Hospital Course: ?The patient is a 67 year old M with pmhx 2 prior strokes in about the last year, concussion this past year, NSTEMI with CABG about 1 year ago, htn, hld, DMt2, who presented to the ER with c/o Right sided arm numbness and tingling with no weakness, dizziness, that started the day prior on waking up. He had CT brain which was negative, and indeterminate troponin. MRI brain was obtained - this revealed an acute left MCA infarct. Neuro was consulted and he was admitted to the PCU on cardiac monitoring Plavix was continued, aspirin added. He refused statin therapy as he has tried two that gave him severe muscle stiffness - could not walk. An echo was obtained which was unremarkable. CTA of the head and neck did not reveal significant stenosis. He was started on meclizine prn. Neuro felt the dizziness was more likely peripheral or post concussive syndrome. He may benefit from outpatient ENT referral. His symptoms improved overnight. He had no events on tele. We arranged for him to have a 30 day cardiac event monitor at [facility]. He will follow up for this with Dr. Milton. He will also need to see Dr. Yadav (neuro) 3-4 weeks, and his PCP 1-2 weeks. The patient tells me that he has the 30 day manager field services on and has been given an envelop to send it back. He hasn't followed up with Dr. Milton since his hospital discharge. He states they gave me an appointment that I didn't know anything about. He tells me that he plans to stop by Dr. Milton's office this morning, to set up an appointment. Taking Palvix since earlier this year. He tells me he doesn't have a follow up with neurology yet. He didn't want to follow up with the one he saw in hospital. Will see if Dr. De Luna has any recommendations. Presenting complaint: The patient presents today reporting that he started the children's chewable vitamins, as Dr. De Luna recommended, and started feeling much more energy this week. The patient tells me that he only gets heartburn if he eats anything with soybean oil in it. The patient denies a change in bowel routine. Having a bowel movement anywhere from every couple three days, to having two or three in a day, if it's loose ~ sometimes more. No blood or black stool. States it's nice and brown. The patient reports right lateral abdominal pain that is constant. He points to an area. He tells me that he notices it more when he is laying in bed. He tells me having a bowel movement will ease it considerably. REVIEW OF SYSTEMS: GENERAL: No weight loss, malaise or fevers Last 10 Encounter Wt Readings: Date: Wt: 03/01/2018 110.5 kg (243 lb 9.6 oz) 02/15/2018 108.9 kg (240 lb) 01/25/2018 108.9 kg (240 lb) 09/07/2017 107 kg (236 lb) 08/06/2017 104.9 kg (231 lb 3.2 oz) 07/14/2017 105.2 kg (232 lb) 07/01/2017 106.6 kg (235 lb) 06/02/2017 108 kg (238 lb) 02/25/2017 106.1 kg (234 lb) 01/11/2017 108.7 kg (239 lb 9.6 oz) RESPIRATORY: Denies new or worsening cough, wheezing or shortness of breath. CARDIOVASCULAR: Reporting 2 strokes within the past year. Recent acute left MCA infarct. History of UT, CABG x3. Hasn't followed up with [facility]. GI: The patient states that his appetite has been good. He does get hungry. There has been no nausea, no vomiting. He denies dysphagia and denies odynophagia. There has not been indigestion or heartburn. There has not been regurgitation. Bowel habits have been irregular. There has partially been diarrhea. There has not been constipation. The patient denies rectal bleeding. There has not been melena. Daily abdominal pain that is located in the right abdomen - laterally. MUSCULOSKELETAL: Positive for myaglias PSYCH: Negative for sleep disturbance, mood disorder and recent psychosocial stressors. HEMATOLOGY/LYMPHOLOGY Positive for See HPI and also on Plavix ENDOCRINE: Positive for diabetes mellitus on insulin (poorly controlled) and hypothyroid. NEURO: Positive for dizziness and sometimes feeling unbalanced - hasn't followed up with Neuro. All other reviewed and negative other than HPI. PAST MEDICAL HISTORY Diagnosis Date - ACNE NEC 09/26/2007 - Acquired hypothyroidism 02/20/2015 - Coronary artery disease due to lipid rich plaque 02/25/[address] Milton - DISEASES OF NAIL NEC 09/26/2007 - Essential hypertension with goal blood pressure less than 130/85 09/02/2015 - FOLLICULITIS///HAIR DISEASES NEC 09/26/2007 - H/O balance disorder chronic due to frequent ear infections in the past. - History of UT (myocardial infarction) 02/25/201701/2017 - Idiopathic peripheral neuropathy - Ischemic cerebrovascular accident (CVA) ([facility]) 08/02/201707/2017: left temporal - Mixed hyperlipidemia 02/20/2015 - Multiple lung nodules 09/30/[address] 09/2016, repeat CT 03/2017 - NEVUS///BENIGN OLEGARIO SKIN TRUNK 09/26/2007 - Other psoriasis 09/26/2007 - Other specified idiopathic peripheral neuropathy - PRURITIC DISORDER NOS 09/26/2007 - PVC (premature ventricular contraction) - PYODERMA NOS 09/26/2007 - Right-sided cerebrovascular accident (CVA) ([facility]) 02/09/2017 MRI at [place] 01/2017 showed right cortical stroke. - S/P CABG x 3 02/25/2017 01/22/2017 Following [facility]. - SEBORRHEIC DERMATITIS NOS 09/26/2007 - SEBORRHEIC KERATOSIS NOS 12/16/2007 - Shoulder pain 05/05/2013 - SOLAR LENGINES////DYSCHROMIA OTHER 12/16/2007 - Type II or unspecified type diabetes mellitus without mention of complication, not stated as uncontrolled - Uncontrolled type 2 diabetes mellitus with diabetic neuropathy, with long-term current use of insulin ([facility]) 06/04/2017 - Unspecified hypothyroidism PAST SURGICAL HISTORY Procedure Laterality Date - 2D ECHO (EXEP) 01/2017 EF=50-55%, with nl function - 2D ECHO (EXEP) 08/02/2017 EF=53%, mild infante dysf, mild UT and TI - NONE - PAST SURGICAL HISTORY OF 01/22/2017 CABG x3 FAMILY HISTORY Problem Relation Age of Onset - other (toxic shock) Mother - None Father - Thyroid Sister Current Outpatient Prescriptions: aspirin, enteric coated (ASPIRIN LOW DOSE) 81 mg EC tablet Take 81 mg by mouth once daily. Disp: Rfl: meclizine (ANTIVERT) 12.5 mg tab 3 TIMES DAILY NEEDED PRN For Dizziness Disp: Rfl: HUMALOG MIX 75-25 KWIKPEN 100 unit/mL (75-25) inpn INJECT 28 UNITS SUBCUTANEOUSLY TWICE DAILY WITH MEALS. Disp: 5 Pen Rfl: 3 metFORMIN (GLUCOPHAGE) 500 mg tablet Take 1 tablet by mouth twice daily. Disp: 60 tablet Rfl: 5 metoprolol tartrate, short acting, (LOPRESSOR) 25 mg tablet Take 0.5 tablets by mouth twice daily. Disp: 30 tablet Rfl: 5 losartan (COZAAR) 25 mg tablet Take 1 tablet by mouth once daily. Disp: Rfl: insulin 75/25 lispro protamine/lispro units/mL (HUMALOG MIX 75-25 KWIKPEN) 100 unit/mL (75-25) inpn 34 units in AM and 30 units in the PM Disp: Rfl: levothyroxine (SYNTHROID) 125 mcg tablet TAKE 1 TABLET BY MOUTH ONCE DAILY. TAKE ON EMPTY STOMACH. FOR THYROID. Disp: 90 tablet Rfl: 1 clopidogrel (PLAVIX) 75 mg tablet TAKE 1 TABLET BY MOUTH EVERY DAY Disp: 30 tablet Rfl: 5 blood sugar diagnostic (FREESTYLE LITE STRIPS) test strip Test blood sugar 3-4 times daily Dx E11.40 on insulin Disp: 100 Strip Rfl: 11 insulin needles, DISPOSABLE, (PEN NEEDLE) 31 gauge x 5/16 ndle Use with 75/25 twice daily Disp: 180 Each Rfl: 3 acetaminophen (TYLENOL) 325 mg tablet Take 2 tablets by mouth every 6 hours as needed for Pain. Disp: Rfl: 0 MULTIVIT-MINERALS/FERROUS FUM (MULTI VITAMIN ORAL) Take by mouth. Disp: Rfl: TURMERIC (CURCUMIN MISC) Disp: Rfl: No current facility-administered medications for this visit. SOCIAL HISTORY: Patient is . He quit smoking 20 years ago. Micky reports his alcohol use as never. PHYSICAL EXAMINATION: Unsteady on his feet when going from sitting to standing. Transfers with no assistance. Blood pressure 130/73, pulse (!) 54, height 185.4 cm (6' 1), weight 110.5 kg (243 lb 9.6 oz). General Appearance: Well appearing, alert, in no acute distress, well-hydrated, well nourished. Skin: Skin color, texture, turgor normal, no suspicious rashes or lesions. Head: Normocephalic, no masses, lesions or abnormalities. Eyes: Anicteric sclera. Extraocular movements are intact. No nystagmus. Neck: Supple, no adenopathy; thyroid symmetric, normal size. Lungs: lungs clear to auscultation. No wheezing, rhonchi, rales. Heart: RRR without murmur, gallop, or rubs. No ectopy. Abdomen: Abdomen soft, non-tender. Bowel sounds normal. No masses, organomegaly. Extremities: No deformities, edema. Peripheral Pulses: Normal. Neurologic: Gait unsteady initially, corrects quickly. Sensation grossly intact. Impression: LARRY with many comorbidities Plan: RUQ US. Repeat CBC and ifobt until after he sees Dr. Milton and Neurology and is cleared for any procedures. Would plan for EGD and colonoscopy. Procedures would need to be done with MAC. Will discuss in detail with the patient, after he has seen both for follow up. I have personally interviewed and examined this patient. I have reviewed the information that the WOOD BOAT BUILDER SUPERVISOR entered for this encounter. I spent 30 minutes in the visit, with greater than 50% of the total ixgl-lg-lisd time of the visit in counseling and coordination of care. Lori Jean-Baptiste RN ASSOCIATE BROKER.ROVERTO Jean-Baptiste RN APRN.ROVERTO 03/01/2018 10:29 AM Signed We will call you with the result of the blood work and ultrasound. Return the stool sample to the lab. Follow up with Dr. Milton and see Neurology (I'll let Dr. De Luna see if he can help with that) Referring Provider: ELLIS DE LUNA [[id number]] Allergies As of Date: 03/01/2018 Noted Allergy Reaction CRESTOR (ROSUVASTATIN CALCIUM) 09/07/2017 17 - Myalgia LANOLIN 02/15/2008 9 - Itching LIPITOR (ATORVASTATIN CALCIUM) 09/07/2017 17 - Myalgia Date Reviewed: 03/01/2018 Reviewed by: Elder Chun LPN - Fully Assessed Reason for Visit: Anemia [6] Primary Visit Diagnosis:Iron deficiency anemia, unspecified iron deficiency anemia type [D50.9] Other Visit Diagnosis:RUQ pain [R10.11] Order(s):FECAL OCCULT BLOOD TEST [SQIFOBT] Order #: [id number] FUTURE US ABD RT UPPER QUADRANT [[id number]] Order #: [id number] FUTURE CBC [SQCBC] Order #: [id number] FUTURE AMYLASE BLD [SQAMYL] Order #: [id number] FUTURE LIPASE BLD [SQLIPA] Order #: [id number] FUTURE Prescriptions as of 03/01/2018 Sig: ACETAMINOPHEN 325 MG TABLET Take 2 tablets by mouth every* ASPIRIN 81 MG TABLET,DELAYED * Take 81 mg by mouth once cindy* BLOOD SUGAR DIAGNOSTIC STRIPS Test blood sugar 3-4 times da* CLOPIDOGREL 75 MG TABLET TAKE 1 TABLET BY MOUTH EVERY * HUMALOG MIX 75-25 KWIKPEN U-1* INJECT 28 UNITS SUBCUTANEOUSL* INSULIN LISPRO AND LISPRO PROT * 34 units in AM and 30 units i* PEN NEEDLE, DIABETIC 31 GAUGE* Use with 75/25 twice daily LEVOTHYROXINE 125 MCG TABLET TAKE 1 TABLET BY MOUTH ONCE D* LOSARTAN 25 MG TABLET Take 1 tablet by mouth once d* MECLIZINE 12.5 MG TABLET 3 TIMES DAILY NEEDED PRN F* METFORMIN 500 MG TABLET Take 1 tablet by mouth twice * METOPROLOL TARTRATE 25 MG TAB* Take 0.5 tablets by mouth twi* MULTI VITAMIN ORAL Take by mouth. CURCUMIN MISC More... Problem List As Of Date 03/01/2018 Noted Resolved Idiopathic peripheral neuropathy [G60.9] Pyoderma, unspecified [L08.0] INVALID FOR* Other acne [L70.8] INVALID FOR* Seborrheic dermatitis, unspecified [L21.9] INVALID FOR* Other psoriasis [L40.8] INVALID FOR* XEROSIS///SEBACEOUS GLAND DIS NEC [L73.8] INVALID FOR* Other specified disease of nail [L60.8] INVALID FOR* Other seborrheic keratosis [L82.1] INVALID FOR* H/O balance disorder [Z87.898] More... PVC (premature ventricular contraction) [I49.3] Diabetic eye exam (HCC) [Z01.00, E11.9] INVALID FOR* More... Dyslipidemia [E78.5] INVALID FOR*02/19/2014 Well adult exam [Z00.00] INVALID FOR* More... Colon cancer screening [Z12.11] INVALID FOR* Acquired hypothyroidism [E03.9] INVALID FOR* Mixed hyperlipidemia [E78.2] INVALID FOR* Prostate cancer screening [Z12.5] INVALID FOR* Uncontrolled type 2 diabetes mellitus without c*INVALID FOR*06/04/2017 Essential hypertension with goal blood pressure*INVALID FOR* Ex-smoker [Z87.891] INVALID FOR* More... Plantar fasciitis, left [M72.2] INVALID FOR* Multiple lung nodules [R91.8] INVALID FOR* More... History of CVA (cerebrovascular accident) [Z86.*INVALID FOR* More... History of UT (myocardial infarction) [I25.2] INVALID FOR* More... Coronary artery disease due to lipid rich plaqu*INVALID FOR* More... 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] INVALID FOR* More... Uncontrolled type 2 diabetes mellitus with diab*INVALID FOR* History of ischemic cerebrovascular accident (C*INVALID FOR* More... Iron deficiency anemia [D50.9] INVALID FOR* Other instructions from your clinician: We will call you with the result of the blood work and ultrasound. Return the stool sample to the lab. Follow up with Dr. Milton and see Neurology (I'll let Dr. De Luna see if he can help with that) Encounter Status:Closed by LORI JEAN-BAPTISTE CNP on 03/01/18 12 LEAD ELECTROCARDIOGRAM Observed: 02/18/2018 Status: F Source: [place] 9:16 AM [facility] [place] [facility] Cardiovascular Services [address] [place] [id number] 12 Lead EKG 02/08/18 1125 MR#: [id number] Acct: [id number] Name: MICKY ROLDAN Sid Rep #: [id number] : 1950 67 From: Baron Veliz MD Attending Dr: Sameer Houston MD Status: DIS IN Ordering Dr: Erika Jacob MD Date: 02/08/18 Location: [facility] Sex: M C Admitted: 02/08/18 Test Reason : DIZZINESS Blood Pressure : / mmHG Vent. Rate : 065 BPM Atrial Rate : 065 BPM P-R Int : 212 ms QRS Dur : 144 ms QT Int : 464 ms P-R-T Axes : 038 -71 094 degrees QTc Int : 482 ms Sinus rhythm with 1st degree A-V block Right bundle branch block Left anterior fascicular block Bifascicular block Abnormal ECG Confirmed by BARON VELIZ MD ([id number]), scientific publications editor JESSIKA BUSTILLO ([id number]) on 02/11/2018 1:20:56 PM Referred By: Confirmed By:BARON VELIZ MD 02/11/18 1320 Date Baron Veliz MD CC: Ellis De Luna MD; Erika Jacob MD; Sameer Houston MD Signed 12 LEAD ELECTROCARDIOGRAM Observed: 02/18/2018 Status: F Source: [place] 9:16 AM [facility] [place] [facility] Cardiovascular Services [address] [place] [address] 12 Lead EKG 02/08/18 1525 MR#: [id number] Acct: [id number] Name: MICKY ROLDAN Rep #: [id number] : 1950 67 From: Baron Veliz MD Attending Dr: Sameer Houston MD Status: DIS IN Ordering Dr: Erika Jacob MD Date: 02/08/18 Location: [facility] Sex: M C Admitted: 02/08/18 Test Reason : REPEAT Blood Pressure : / mmHG Vent. Rate : 073 BPM Atrial Rate : 073 BPM P-R Int : 276 ms QRS Dur : 144 ms QT Int : 460 ms P-R-T Axes : 039 -64 081 degrees QTc Int : 506 ms Sinus rhythm with 1st degree A-V block Right bundle branch block Left anterior fascicular block Bifascicular block Abnormal ECG Confirmed by FABIOLA WILLETT, BARON ([id number]), scientific publications editor JESSIKA BUSTILLO ([id number]) on 02/11/2018 1:21:21 PM Referred By: JAIME Confirmed By:BARON VELIZ MD 02/11/18 1321 Date Baron Veliz MD CC: Ellis De Luna MD; Erika Jacob MD; Sameer Houston MD Signed CNOV Observed: 02/15/2018 Status: COMPLETED Source: [place] 2:20 PM [facility] REPOSITORY Office Visit ([facility]) QUIANAMICKY PERALTA ([id number]) 1950 M Date Time Provider Department 02/15/18 2:20 PM MANAV FERNÁNDEZ) JOANA During your visit today, we recorded the following information about you: Pulse Respiration Blood pressure Weight 60/minute 14/minute 120/68 108.9 kg CARRIE FERNÁNDEZ PA-C 02/15/2018 3:22 PM Signed TRANSITION CARE MANAGEMENT (TCM) INITIAL CONTACT Pharmacy Customer Care Specialist Outreach ? Provider Action/FYI: Patient was advised to make appointments with Neurologist Dr. Yadav and Hop Grower Dr. Milton which were still not done. Patient is not sure when he works. Patient is currently doing Holter monitor ? ? Initial contact with patient post discharge, spoke to patient. Patient identified by name and . ? TRANSITION CARE MANAGEMENT INITIAL OUTREACH DOCUMENTATION: Date of Outreach: 02/11/2018 Outreach Attempt 1: Contact Made Date of Discharge 02/09/2018 Some recent data might be hidden ? ? SUMMARY: -Pt discharged from [facility] on 02/09. -Admitted for: Acute CVA, lacunary left MCA Dizziness, possibly 2/2 peripheral or post concussive syndrome Hx of strokes Hx CAD prior NSTEMI, CABG Hx concussion DMt2 Hypothyroidism HTN ? - Secondary Discharge Diagnosis Chronic Problems ? Open wound of scalp (Chronic) Dizziness (Chronic) Essential (primary) hypertension (Chronic) Atherosclerosis of [place] coronary artery of [place] heart without angina pectoris (Chronic) CABG- THRASHER to LAD, reverse SVG to post lateral, reverse SVG to OM 01/21/2017 Hyperlipidemia (Chronic) Diabetes mellitus (Chronic) Thyroid disorder (Chronic) ? ? Hospital Course and Treatment Imaging Results: ORDER #: CT/Brain/Head without Contrast IMPRESSION: Chronic involutional changes of the brain. ORDER #: RAD/Chest 1 View IMPRESSION: Stable increased markings at the lung bases slightly worse on the left side with blunting of the left costophrenic angle. ORDER #: MRI/Brain without Contrast IMPRESSION: Small acute lacunar infarct in the left internal capsule Mild atrophy and periventricular white matter ischemic changes. Chronic ischemic changes right cerebellar hemisphere normal right posterior thalamic infarct. ? ORDER #: CT/CTA Head W/WO Contrast IMPRESSION: Normal [place] without a demonstrated aneurysm or hemodynamically significant stenosis. ORDER #: CT/CTA Neck W/WO Contrast IMPRESSION: Atherosclerotic plaque formation at the origin of the right and left internal carotid arteries with less than 50% luminal stenosis. Echo: Interpretation Summary Moderately dilated left ventricle. The estimated ejection fraction is 45 %. Stage 1 diastolic dysfunction. There is moderate global hypokinesis of the left ventricle. Mildly dilated right ventricle. The left atrium is moderately enlarged. The right atrium is mildly enlarged. Mild (1+) posteriorly directed mitral valve insufficiency. Mild (1+) tricuspid valve insufficiency. Right ventricular systolic pressure estimated to be 37 mmHg. Mild pulmonary hypertension. Compared to echo report dated 08/03/2015, no appreciable chnages noted. ? Consults: ? Jerri - Vicenta Operations: None Procedures: 2-D Echocardiogram Summary of Care Provided: Hospital Course: ? The patient is a 67 year old M with pmhx 2 prior strokes in about the last year, concussion this past year, NSTEMI with CABG about 1 year ago, htn, hld, DMt2, who presented to the ER with c/o Right sided arm numbness and tingling with no weakness, dizziness, that started the day prior on waking up. He had CT brain which was negative, and indeterminate troponin. MRI brain was obtained - this revealed an acute left MCA infarct. Neuro was consulted and he was admitted to the PCU on cardiac monitoring Plavix was continued, aspirin added. He refused statin therapy as he has tried two that gave him severe muscle stiffness - could not walk. An echo was obtained which was unremarkable. CTA of the head and neck did not reveal significant stenosis. He was started on meclizine prn. Neuro felt the dizziness was more likely peripheral or post concussive syndrome. He may benefit from outpatient ENT referral. His symptoms improved overnight. He had no events on tele. We arranged for him to have a 30 day cardiac event monitor at [facility]. He will follow up for this with Dr. Milton. He will also need to see Dr. Yadav (neuro) 3-4 weeks, and his PCP 1-2 weeks. ? This patient was seen by Guido Delong PA-C under the supervision of Dr. Houston. At [facility] and this document is from there system ? ? ? Do you have a hospital follow up appointment with your PCP? Appointment on 02/15 with Carrie Fernández. Yes. Remind patient of appointment date, time, and location. If not within 14 calendar days of discharge - please reschedule accordingly. ? MEDICATIONS: Many patients have questions or concerns about their medications once they are home. Were you prescribed any new medications? Yes - baby asa and meclizine ? Were you told to hold any medications? No Were any of your medications discontinued? No ? Do you have any questions about getting or taking your medications? No ? Your discharge instructions/After visit Summary (AVS) are important in guiding you through the recovery process. Is there anything I might help you understand? No ? Do you have all the necessary equipment and supplies at home? Yes ? Medical records from recent hospitalization: Requested from outside hospital Transitional Care Management TCM Eligibility Documentation The following information was gathered during the initial Patient Outreach Encounter. Date of Outreach: 02/11/2018 Outreach Attempt 1: Contact Made Date of Discharge 02/09/2018 Some recent data might be hidden Provider Documentation: Micky Roldan is a 67 year old male here today for a follow up to recent hospitalization. I have reviewed the patient's hospital course including diagnostic testing performed during this hospitalization, their discharge medications, and my assessment and plan with the patient and any family members present at today's visit. HPI: Patient was admitted on 02/08 and discharged on 02/09. MRI showed small acute lacunar infarct in the left internal capsule. Was initially set to follow up with Dr. Yadav. Patient would like to see someone else in [place]. This is patient's 3rd stroke in a year. Does not have follow up scheduled with Cardiology yet. Was seen by [place] [facility] earlier this year. Overall patient is feeling good. Still having some dizziness. Sometimes feelings of unbalanced and other times room is spinning. PHYSICAL EXAMINATION BP 120/68 Pulse 60 Resp 14 Wt 240 lb (108.9kg) General appearance: well appearing, alert, in no acute distress and well-hydrated, well nourished, motor and sensory appear to be normal Lungs: clear to auscultation no wheezing or rhonchi Heart: RRR without murmur, gallop, or rubs. No ectopy Abdomen: Normal abdominal exam, Abdomen soft, non-tender. Bowel sounds normal. No masses, organomegaly Extremities: Extremities normal. No deformities, edema, or skin discoloration. Good capillary refill. ASSESSMENT/PLAN: 1. Lacunar infarct, acute - ICD9: 434.91, ICD10: I63.81 (primary diagnosis) Will set patient up with neurology for eval. - CONSULT TO NEUROLOGY 2. Recurrent strokes (HCC) - ICD9: 434.91, ICD10: I63.9 - CONSULT TO NEUROLOGY 3. History of UT (myocardial infarction) - ICD9: 412, ICD10: I25.2 Given mild elevation in Troponins, will set patient back up with his steel cutter for earlier appoitment time. - CONSULT TO CARDIOLOGY 4. Coronary artery disease due to lipid rich plaque - ICD9: 414.00, 414.3, ICD10: I25.10, I25.83 See above - CONSULT TO CARDIOLOGY 5. History of CVA (cerebrovascular accident) - ICD9: V12.54, ICD10: Z86.73 See above 6. Vertigo - ICD9: 780.4, ICD10: R42 Central vs peripheral.. postconcussive vs inner ear vs eustachian tube dysfunction Patient to try flonase daily Will await neuro eval then consider further workup with ENT if needed. Discussed possible red flags and when to seek medical attention. Patient to keep routine follow up that is scheduled with Dr. de luna in May. CARRIE FERNÁNDEZ PA-C February 15, 2018 2:18 PM CARRIE FERNÁNDEZ PA-C 02/15/2018 2:44 PM Signed Try the flonase- if need refill let me know. 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 Keep follow up with Dr. De Luna in May Return sooner as needed. Referring Provider: ELLIS DE LUNA [[id number]] Allergies As of Date: 02/15/2018 Noted Allergy Reaction CRESTOR (ROSUVASTATIN CALCIUM) 09/07/2017 17 - Myalgia LANOLIN 02/15/2008 9 - Itching LIPITOR (ATORVASTATIN CALCIUM) 09/07/2017 17 - Myalgia Date Reviewed: 02/15/2018 Reviewed by: Laura Hernandez Ma - Fully Assessed Reason for Visit: Transition Of Care [6411] Primary Visit Diagnosis:Lacunar infarct, acute [I63.81] Other Visit Diagnoses:Recurrent strokes (HCC) [I63.9] History of UT (myocardial infarction) [I25.2] Coronary artery disease due to lipid rich plaque [I25.10, I25.83] History of CVA (cerebrovascular accident) [Z86.73] Vertigo [R42] Order(s):CONSULT TO NEUROLOGY [9000] Order #: [id number]: 1 CONSULT TO CARDIOLOGY [9004] Order #: [id number]: 1 Prescriptions as of 02/15/2018 Sig: ASPIRIN 81 MG TABLET,DELAYED * Take 81 mg by mouth once cindy* MECLIZINE 12.5 MG TABLET 3 TIMES DAILY NEEDED PRN F* METFORMIN 500 MG TABLET Take 1 tablet by mouth twice * METOPROLOL TARTRATE 25 MG TAB* Take 0.5 tablets by mouth twi* LOSARTAN 25 MG TABLET Take 1 tablet by mouth once d* INSULIN LISPRO AND LISPRO PROT * 34 units in AM and 30 units i* LEVOTHYROXINE 125 MCG TABLET TAKE 1 TABLET BY MOUTH ONCE D* CLOPIDOGREL 75 MG TABLET TAKE 1 TABLET BY MOUTH EVERY * BLOOD SUGAR DIAGNOSTIC STRIPS Test blood sugar 3-4 times da* PEN NEEDLE, DIABETIC 31 GAUGE* Use with 75/25 twice daily ACETAMINOPHEN 325 MG TABLET Take 2 tablets by mouth every* MULTI VITAMIN ORAL Take by mouth. CURCUMIN MISC HUMALOG MIX 75-25 KWIKPEN U-1* INJECT 28 UNITS SUBCUTANEOUSL* More... Problem List As Of Date 02/15/2018 Noted Resolved Idiopathic peripheral neuropathy [G60.9] Priority: A Pyoderma, unspecified [L08.0] INVALID FOR* Priority: C Other acne [L70.8] INVALID FOR* Priority: C Seborrheic dermatitis, unspecified [L21.9] INVALID FOR* Priority: C Other psoriasis [L40.8] INVALID FOR* Priority: C XEROSIS///SEBACEOUS GLAND DIS NEC [L73.8] INVALID FOR* Priority: C Other specified disease of nail [L60.8] INVALID FOR* Priority: C Other seborrheic keratosis [L82.1] INVALID FOR* Priority: C H/O balance disorder [Z87.898] Priority: B More... PVC (premature ventricular contraction) [I49.3] Priority: A Diabetic eye exam (HCC) [Z01.00, E11.9] INVALID FOR* Priority: A More... Dyslipidemia [E78.5] INVALID FOR*02/19/2014 Well adult exam [Z00.00] INVALID FOR* Priority: D More... Colon cancer screening [Z12.11] INVALID FOR* Acquired hypothyroidism [E03.9] INVALID FOR* Priority: A Mixed hyperlipidemia [E78.2] INVALID FOR* Priority: A Prostate cancer screening [Z12.5] INVALID FOR* Uncontrolled type 2 diabetes mellitus without c*INVALID FOR*06/04/2017 Priority: A Essential hypertension with goal blood pressure*INVALID FOR* Priority: A Ex-smoker [Z87.891] INVALID FOR* Priority: C More... Plantar fasciitis, left [M72.2] INVALID FOR* Priority: M Multiple lung nodules [R91.8] INVALID FOR* Priority: B More... History of CVA (cerebrovascular accident) [Z86.*INVALID FOR* Priority: A More... History of UT (myocardial infarction) [I25.2] INVALID FOR* Priority: A More... Coronary artery disease due to lipid rich plaqu*INVALID FOR* Priority: A More... 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 Uncontrolled type 2 diabetes mellitus with diab*INVALID FOR* Priority: A History of ischemic cerebrovascular accident (C*INVALID FOR* Priority: A More... Iron deficiency anemia [D50.9] INVALID FOR* Other instructions from your clinician: Try the flonase- if need refill let me know. 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 Keep follow up with Dr. De Luna in May Return sooner as needed. Encounter Status:Closed by CARRIE BUENO on 02/15/18 PROGRESS Observed: 02/15/2018 Status: COMPLETED Source: [place] 2:18 PM [facility] REPOSITORY HNO ID: [id number] Author: Rylie Fernández Service: (none) Author Type: Physician Lens Dotter Type: Progress Notes Filed: 02/15/2018 3:22 PM Note Text: TRANSITION CARE MANAGEMENT (TCM) INITIAL CONTACT Pharmacy Customer Care Specialist Outreach ? Provider Action/FYI: Patient was advised to make appointments with Neurologist Dr. Yadav and Hop [employer]er Dr. Milton which were still not done. Patient is not sure when he works. Patient is currently doing Holter monitor ? ? Initial contact with patient post discharge, spoke to patient. Patient identified by name and . ? TRANSITION CARE MANAGEMENT INITIAL OUTREACH DOCUMENTATION: Date of Outreach: 02/11/2018 Outreach Attempt 1: Contact Made Date of Discharge 02/09/2018 Some recent data might be hidden ? ? SUMMARY: -Pt discharged from [facility] on 02/09. -Admitted for: Acute CVA, lacunary left MCA Dizziness, possibly 2/2 peripheral or post concussive syndrome Hx of strokes Hx CAD prior NSTEMI, CABG Hx concussion DMt2 Hypothyroidism HTN ? - Secondary Discharge Diagnosis Chronic Problems ? Open wound of scalp (Chronic) Dizziness (Chronic) Essential (primary) hypertension (Chronic) Atherosclerosis of [place]it[place] coronary artery of [place] heart without angina pectoris (Chronic) CABG- THRASHER to LAD, reverse SVG to post lateral, reverse SVG to OM 01/21/2017 Hyperlipidemia (Chronic) Diabetes mellitus (Chronic) Thyroid disorder (Chronic) ? ? Hospital Course and Treatment Imaging Results: ORDER #: CT/Brain/Head without Contrast IMPRESSION: Chronic involutional changes of the brain. ORDER #: RAD/Chest 1 View IMPRESSION: Stable increased markings at the lung bases slightly worse on the left side with blunting of the left costophrenic angle. ORDER #: MRI/Brain without Contrast IMPRESSION: Small acute lacunar infarct in the left internal capsule Mild atrophy and periventricular white matter ischemic changes. Chronic ischemic changes right cerebellar hemisphere normal right posterior thalamic infarct. ? ORDER #: CT/CTA Head W/WO Contrast IMPRESSION: Normal [place] without a demonstrated aneurysm or hemodynamically significant stenosis. ORDER #: CT/CTA Neck W/WO Contrast IMPRESSION: Atherosclerotic plaque formation at the origin of the right and left internal carotid arteries with less than 50% luminal stenosis. Echo: Interpretation Summary Moderately dilated left ventricle. The estimated ejection fraction is 45 %. Stage 1 diastolic dysfunction. There is moderate global hypokinesis of the left ventricle. Mildly dilated right ventricle. The left atrium is moderately enlarged. The right atrium is mildly enlarged. Mild (1+) posteriorly directed mitral valve insufficiency. Mild (1+) tricuspid valve insufficiency. Right ventricular systolic pressure estimated to be 37 mmHg. Mild pulmonary hypertension. Compared to echo report dated 08/03/2015, no appreciable chnages noted. ? Consults: ? Neuro - [place] Operations: None Procedures: 2-D Echocardiogram Summary of Care Provided: Hospital Course: ? The patient is a 67 year old M with pmhx 2 prior strokes in about the last year, concussion this past year, NSTEMI with CABG about 1 year ago, htn, hld, DMt2, who presented to the ER with c/o Right sided arm numbness and tingling with no weakness, dizziness, that started the day prior on waking up. He had CT brain which was negative, and indeterminate troponin. MRI brain was obtained - this revealed an acute left MCA infarct. Neuro was consulted and he was admitted to the PCU on cardiac monitoring Plavix was continued, aspirin added. He refused statin therapy as he has tried two that gave him severe muscle stiffness - could not walk. An echo was obtained which was unremarkable. CTA of the head and neck did not reveal significant stenosis. He was started on meclizine prn. Neuro felt the dizziness was more likely peripheral or post concussive syndrome. He may benefit from outpatient ENT referral. His symptoms improved overnight. He had no events on tele. We arranged for him to have a 30 day cardiac event monitor at [facility]. He will follow up for this with Dr. Milton. He will also need to see Dr. Yadav (neuro) 3-4 weeks, and his PCP 1-2 weeks. ? This patient was seen by Guido Delong PA-C under the supervision of Dr. Houston. At [facility] and this document is from there system ? ? ? Do you have a hospital follow up appointment with your PCP? Appointment on 02/15 with Carrie Fernández. Yes. Remind patient of appointment date, time, and location. If not within 14 calendar days of discharge - please reschedule accordingly. ? MEDICATIONS: Many patients have questions or concerns about their medications once they are home. Were you prescribed any new medications? Yes - baby asa and meclizine ? Were you told to hold any medications? No Were any of your medications discontinued? No ? Do you have any questions about getting or taking your medications? No ? Your discharge instructions/After visit Summary (AVS) are important in guiding you through the recovery process. Is there anything I might help you understand? No ? Do you have all the necessary equipment and supplies at home? Yes ? Medical records from recent hospitalization: Requested from outside hospital Transitional Care Management TCM Eligibility Documentation The following information was gathered during the initial Patient Outreach Encounter. Date of Outreach: 02/11/2018 Outreach Attempt 1: Contact Made Date of Discharge 02/09/2018 Some recent data might be hidden Provider Documentation: Micky Roldan is a 67 year old male here today for a follow up to recent hospitalization. I have reviewed the patient's hospital course including diagnostic testing performed during this hospitalization, their discharge medications, and my assessment and plan with the patient and any family members present at today's visit. HPI: Patient was admitted on 02/08 and discharged on 02/09. MRI showed small acute lacunar infarct in the left internal capsule. Was initially set to follow up with Dr. Yadav. Patient would like to see someone else in [place]. This is patient's 3rd stroke in a year. Does not have follow up scheduled with Cardiology yet. Was seen by [place] [facility] earlier this year. Overall patient is feeling good. Still having some dizziness. Sometimes feelings of unbalanced and other times room is spinning. PHYSICAL EXAMINATION BP 120/68 Pulse 60 Resp 14 Wt 240 lb (108.9kg) General appearance: well appearing, alert, in no acute distress and well-hydrated, well nourished, motor and sensory appear to be normal Lungs: clear to auscultation no wheezing or rhonchi Heart: RRR without murmur, gallop, or rubs. No ectopy Abdomen: Normal abdominal exam, Abdomen soft, non-tender. Bowel sounds normal. No masses, organomegaly Extremities: Extremities normal. No deformities, edema, or skin discoloration. Good capillary refill. ASSESSMENT/PLAN: 1. Lacunar infarct, acute - ICD9: 434.91, ICD10: I63.81 (primary diagnosis) Will set patient up with neurology for eval. - CONSULT TO NEUROLOGY 2. Recurrent strokes (HCC) - ICD9: 434.91, ICD10: I63.9 - CONSULT TO NEUROLOGY 3. History of UT (myocardial infarction) - ICD9: 412, ICD10: I25.2 Given mild elevation in Troponins, will set patient back up with his steel cutter for earlier appoitment time. - CONSULT TO CARDIOLOGY 4. Coronary artery disease due to lipid rich plaque - ICD9: 414.00, 414.3, ICD10: I25.10, I25.83 See above - CONSULT TO CARDIOLOGY 5. History of CVA (cerebrovascular accident) - ICD9: V12.54, ICD10: Z86.73 See above 6. Vertigo - ICD9: 780.4, ICD10: R42 Central vs peripheral.. postconcussive vs inner ear vs eustachian tube dysfunction Patient to try flonase daily Will await neuro eval then consider further workup with ENT if needed. Discussed possible red flags and when to seek medical attention. Patient to keep routine follow up that is scheduled with Dr. de luna in May. CARRIE FERNÁNDEZ PA-C February 15, 2018 2:18 PM PROGRESS Observed: 02/11/2018 Status: COMPLETED Source: [place] 1:00 PM [facility] REPOSITORY HNO ID: [id number] Author: Veronica Coy Ma Service: (none) Author Type: (none) Type: Progress Notes Filed: 02/11/2018 1:10 PM Note Text: TRANSITION CARE MANAGEMENT (TCM) INITIAL CONTACT Pharmacy Customer Care Specialist Outreach Provider Action/FYI: Patient was advised to make appointments with Neurologist Dr. Yadav and [employer] Dr. Milton which were still not done. Patient is not sure when he works. Patient is currently doing Holter monitor Initial contact with patient post discharge, spoke to patient. Patient identified by name and . TRANSITION CARE MANAGEMENT INITIAL OUTREACH DOCUMENTATION: Date of Outreach: 02/11/2018 Outreach Attempt 1: Contact Made Date of Discharge 02/09/2018 Some recent data might be hidden SUMMARY: -Pt discharged from [facility] on 02/09. -Admitted for: Acute CVA, lacunary left MCA Dizziness, possibly 2/2 peripheral or post concussive syndrome Hx of strokes Hx CAD prior NSTEMI, CABG Hx concussion DMt2 Hypothyroidism HTN - Secondary Discharge Diagnosis Chronic Problems Open wound of scalp (Chronic) Dizziness (Chronic) Essential (primary) hypertension (Chronic) Atherosclerosis of [place] coronary artery of [place] heart without angina pectoris (Chronic) CABG- THRASHER to LAD, reverse SVG to post lateral, reverse SVG to OM 01/21/2017 Hyperlipidemia (Chronic) Diabetes mellitus (Chronic) Thyroid disorder (Chronic) Hospital Course and Treatment Imaging Results: ORDER #: CT/Brain/Head without Contrast IMPRESSION: Chronic involutional changes of the brain. ORDER #: RAD/Chest 1 View IMPRESSION: Stable increased markings at the lung bases slightly worse on the left side with blunting of the left costophrenic angle. ORDER #: MRI/Brain without Contrast IMPRESSION: Small acute lacunar infarct in the left internal capsule Mild atrophy and periventricular white matter ischemic changes. Chronic ischemic changes right cerebellar hemisphere normal right posterior thalamic infarct. ORDER #: CT/CTA Head W/WO Contrast IMPRESSION: Normal [place] without a demonstrated aneurysm or hemodynamically significant stenosis. ORDER #: CT/CTA Neck W/WO Contrast IMPRESSION: Atherosclerotic plaque formation at the origin of the right and left internal carotid arteries with less than 50% luminal stenosis. Echo: Interpretation Summary Moderately dilated left ventricle. The estimated ejection fraction is 45 %. Stage 1 diastolic dysfunction. There is moderate global hypokinesis of the left ventricle. Mildly dilated right ventricle. The left atrium is moderately enlarged. The right atrium is mildly enlarged. Mild (1+) posteriorly directed mitral valve insufficiency. Mild (1+) tricuspid valve insufficiency. Right ventricular systolic pressure estimated to be 37 mmHg. Mild pulmonary hypertension. Compared to echo report dated 08/03/2015, no appreciable chnages noted. Consults: Jerri - [facility] Operations: None Procedures: 2-D Echocardiogram Summary of Care Provided: Hospital Course: The patient is a 67 year old M with pmhx 2 prior strokes in about the last year, concussion this past year, NSTEMI with CABG about 1 year ago, htn, hld, DMt2, who presented to the ER with c/o Right sided arm numbness and tingling with no weakness, dizziness, that started the day prior on waking up. He had CT brain which was negative, and indeterminate troponin. MRI brain was obtained - this revealed an acute left MCA infarct. Neuro was consulted and he was admitted to the PCU on cardiac monitoring Plavix was continued, aspirin added. He refused statin therapy as he has tried two that gave him severe muscle stiffness - could not walk. An echo was obtained which was unremarkable. CTA of the head and neck did not reveal significant stenosis. He was started on meclizine prn. Neuro felt the dizziness was more likely peripheral or post concussive syndrome. He may benefit from outpatient ENT referral. His symptoms improved overnight. He had no events on tele. We arranged for him to have a 30 day cardiac event monitor at [facility]. He will follow up for this with Dr. Milton. He will also need to see Dr. Yadav (neuro) 3-4 weeks, and his PCP 1-2 weeks. This patient was seen by Guido Delong PA-C under the supervision of Dr. Houston. At [facility] and this document is from there system Do you have a hospital follow up appointment with your PCP? Appointment on 02/15 with Carrie Fernández. Yes. Remind patient of appointment date, time, and location. If not within 14 calendar days of discharge - please reschedule accordingly. MEDICATIONS: Many patients have questions or concerns about their medications once they are home. Were you prescribed any new medications? Yes - baby asa and meclizine Were you told to hold any medications? No Were any of your medications discontinued? No Do you have any questions about getting or taking your medications? No Your discharge instructions/After visit Summary (AVS) are important in guiding you through the recovery process. Is there anything I might help you understand? No Do you have all the necessary equipment and supplies at home? Yes Medical records from recent hospitalization: [facility] Observed: 02/11/2018 Status: COMPLETED Source: [place] 12:00 AM [facility] REPOSITORY Patient Outreach ([facility]) MICKY ROLDAN ([id number]) 1950 M Date Time Provider Department 02/11/18 [facility] During your visit today, we recorded the following information about you: Veronica Coy Ma 02/11/2018 1:10 PM Signed TRANSITION CARE MANAGEMENT (TCM) INITIAL CONTACT Pharmacy Customer Care Specialist Outreach Provider Action/FYI: Patient was advised to make appointments with Neurologist Dr. Yadav and [employer] Dr. Milton which were still not done. Patient is not sure when he works. Patient is currently doing Holter monitor Initial contact with patient post discharge, spoke to patient. Patient identified by name and . TRANSITION CARE MANAGEMENT INITIAL OUTREACH DOCUMENTATION: Date of Outreach: 02/11/2018 Outreach Attempt 1: Contact Made Date of Discharge 02/09/2018 Some recent data might be hidden SUMMARY: -Pt discharged from [facility] on 02/09. -Admitted for: Acute CVA, lacunary left MCA Dizziness, possibly 2/2 peripheral or post concussive syndrome Hx of strokes Hx CAD prior NSTEMI, CABG Hx concussion DMt2 Hypothyroidism HTN - Secondary Discharge Diagnosis Chronic Problems Open wound of scalp (Chronic) Dizziness (Chronic) Essential (primary) hypertension (Chronic) Atherosclerosis of [place] coronary artery of [place] heart without angina pectoris (Chronic) CABG- THRASHER to LAD, reverse SVG to post lateral, reverse SVG to OM 01/21/2017 Hyperlipidemia (Chronic) Diabetes mellitus (Chronic) Thyroid disorder (Chronic) Hospital Course and Treatment Imaging Results: ORDER #: CT/Brain/Head without Contrast IMPRESSION: Chronic involutional changes of the brain. ORDER #: RAD/Chest 1 View IMPRESSION: Stable increased markings at the lung bases slightly worse on the left side with blunting of the left costophrenic angle. ORDER #: MRI/Brain without Contrast IMPRESSION: Small acute lacunar infarct in the left internal capsule Mild atrophy and periventricular white matter ischemic changes. Chronic ischemic changes right cerebellar hemisphere normal right posterior thalamic infarct. ORDER #: CT/CTA Head W/WO Contrast IMPRESSION: Normal [place] without a demonstrated aneurysm or hemodynamically significant stenosis. ORDER #: CT/CTA Neck W/WO Contrast IMPRESSION: Atherosclerotic plaque formation at the origin of the right and left internal carotid arteries with less than 50% luminal stenosis. Echo: Interpretation Summary Moderately dilated left ventricle. The estimated ejection fraction is 45 %. Stage 1 diastolic dysfunction. There is moderate global hypokinesis of the left ventricle. Mildly dilated right ventricle. The left atrium is moderately enlarged. The right atrium is mildly enlarged. Mild (1+) posteriorly directed mitral valve insufficiency. Mild (1+) tricuspid valve insufficiency. Right ventricular systolic pressure estimated to be 37 mmHg. Mild pulmonary hypertension. Compared to echo report dated 08/03/2015, no appreciable chnages noted. Consults: Neuro - [facility] Operations: None Procedures: 2-D Echocardiogram Summary of Care Provided: Hospital Course: The patient is a 67 year old M with pmhx 2 prior strokes in about the last year, concussion this past year, NSTEMI with CABG about 1 year ago, htn, hld, DMt2, who presented to the ER with c/o Right sided arm numbness and tingling with no weakness, dizziness, that started the day prior on waking up. He had CT brain which was negative, and indeterminate troponin. MRI brain was obtained - this revealed an acute left MCA infarct. Neuro was consulted and he was admitted to the PCU on cardiac monitoring Plavix was continued, aspirin added. He refused statin therapy as he has tried two that gave him severe muscle stiffness - could not walk. An echo was obtained which was unremarkable. CTA of the head and neck did not reveal significant stenosis. He was started on meclizine prn. Neuro felt the dizziness was more likely peripheral or post concussive syndrome. He may benefit from outpatient ENT referral. His symptoms improved overnight. He had no events on tele. We arranged for him to have a 30 day cardiac event monitor at [place]. He will follow up for this with Dr. Milton. He will also need to see Dr. Yadav (neuro) 3-4 weeks, and his PCP 1-2 weeks. This patient was seen by Guido Delong PA-C under the supervision of Dr. Houston. At [facility] and this document is from there system Do you have a hospital follow up appointment with your PCP? Appointment on 02/15 with Carrie Fernández. Yes. Remind patient of appointment date, time, and location. If not within 14 calendar days of discharge - please reschedule accordingly. MEDICATIONS: Many patients have questions or concerns about their medications once they are home. Were you prescribed any new medications? Yes - baby asa and meclizine Were you told to hold any medications? No Were any of your medications discontinued? No Do you have any questions about getting or taking your medications? No Your discharge instructions/After visit Summary (AVS) are important in guiding you through the recovery process. Is there anything I might help you understand? No Do you have all the necessary equipment and supplies at home? Yes Medical records from recent hospitalization: Requested from outside hospital Allergies As of Date: 02/11/2018 Noted Allergy Reaction CRESTOR (ROSUVASTATIN CALCIUM) 09/07/2017 17 - Myalgia LANOLIN 02/15/2008 9 - Itching LIPITOR (ATORVASTATIN CALCIUM) 09/07/2017 17 - Myalgia Date Reviewed: 01/25/2018 Reviewed by: Ellis De Luna - Fully Assessed Reason for Visit: Transition Of Care [4074] Prescriptions as of 02/11/2018 Sig: ASPIRIN 81 MG TABLET,DELAYED * Take 81 mg by mouth once cindy* MECLIZINE 12.5 MG TABLET 3 TIMES DAILY NEEDED PRN F* METFORMIN 500 MG TABLET Take 1 tablet by mouth twice * METOPROLOL TARTRATE 25 MG TAB* Take 0.5 tablets by mouth twi* LOSARTAN 25 MG TABLET Take 1 tablet by mouth once d* INSULIN LISPRO AND LISPRO PROT * 34 units in AM and 30 units i* CLOPIDOGREL 75 MG TABLET TAKE 1 TABLET BY MOUTH EVERY * PEN NEEDLE, DIABETIC 31 GAUGE* Use with 75/25 twice daily CURCUMIN MISC HUMALOG MIX 75-25 KWIKPEN U-1* INJECT 28 UNITS SUBCUTANEOUSL* LEVOTHYROXINE 125 MCG TABLET TAKE 1 TABLET BY MOUTH ONCE D* BLOOD SUGAR DIAGNOSTIC STRIPS Test blood sugar 3-4 times da* ACETAMINOPHEN 325 MG TABLET Take 2 tablets by mouth every* MULTI VITAMIN ORAL Take by mouth. More... Problem List As Of Date 02/11/2018 Noted Resolved Idiopathic peripheral neuropathy [G60.9] Priority: A Pyoderma, unspecified [L08.0] INVALID FOR* Priority: C Other acne [L70.8] INVALID FOR* Priority: C Seborrheic dermatitis, unspecified [L21.9] INVALID FOR* Priority: C Other psoriasis [L40.8] INVALID FOR* Priority: C XEROSIS///SEBACEOUS GLAND DIS NEC [L73.8] INVALID FOR* Priority: C Other specified disease of nail [L60.8] INVALID FOR* Priority: C Other seborrheic keratosis [L82.1] INVALID FOR* Priority: C H/O balance disorder [Z87.898] Priority: B More... PVC (premature ventricular contraction) [I49.3] Priority: A Diabetic eye exam (HCC) [Z01.00, E11.9] INVALID FOR* Priority: A More... Dyslipidemia [E78.5] INVALID FOR*02/19/2014 Well adult exam [Z00.00] INVALID FOR* Priority: D More... Colon cancer screening [Z12.11] INVALID FOR* Acquired hypothyroidism [E03.9] INVALID FOR* Priority: A Mixed hyperlipidemia [E78.2] INVALID FOR* Priority: A Prostate cancer screening [Z12.5] INVALID FOR* Uncontrolled type 2 diabetes mellitus without c*INVALID FOR*06/04/2017 Priority: A Essential hypertension with goal blood pressure*INVALID FOR* Priority: A Ex-smoker [Z87.891] INVALID FOR* Priority: C More... Plantar fasciitis, left [M72.2] INVALID FOR* Priority: M Multiple lung nodules [R91.8] INVALID FOR* Priority: B More... History of CVA (cerebrovascular accident) [Z86.*INVALID FOR* Priority: A More... History of UT (myocardial infarction) [I25.2] INVALID FOR* Priority: A More... Coronary artery disease due to lipid rich plaqu*INVALID FOR* Priority: A More... 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 Uncontrolled type 2 diabetes mellitus with diab*INVALID FOR* Priority: A History of ischemic cerebrovascular accident (C*INVALID FOR* Priority: A More... Iron deficiency anemia [D50.9] INVALID FOR* Encounter Status:Closed by VERONICA COY MA on 02/11/18 DISCHARGE SUMMARY Observed: 02/09/2018 Status: F Source: [place] 4:26 PM [facility] [place] [facility] Medical Records Department [address] [place] [id number] Discharge Summary 02/09/18 1249 MR#: [id number] Acct: [id number] Name: MICKY ROLDAN Rep #: [id number] : 1950 67 From: Guido ROBERTO PCP: Ellis De Luna MD Status: DIS IN Y Location: [place] [id number] ADDENDUM by FELISA Delong on 02/09/18 at 1259 Code Visit Addendum: Indeterminate troponin - no chest pain throughout stay, troponin remained relatively flat. Serial EKGs without acute changes. F.u with cardiology. 02/09/18 1259 <Electronically signed by Guido ROBERTO> Date Guido Delong cc: FELISA Delong; Ellis De Luna MD; Sameer Houston MD * Signed Addendum entered and electronically signed by FELISA Feng 02/09/18 12:59: Code Visit Addendum: Indeterminate troponin - no chest pain throughout stay, troponin remained relatively flat. Serial EKGs without acute changes. F.u with cardiology. Original Note: <Guido Delong - Last Filed: 02/09/18 12:58> Discharge Date and Diagnosis Date of Admission: 02/08/18 Date of Discharge: 02/09/18 - Primary Discharge Diagnosis Acute CVA, lacunary left MCA Dizziness, possibly 2/2 peripheral or post concussive syndrome Hx of multiple strokes Hx CAD prior NSTEMI, CABG Hx Concussion DMt2 Hypothyroidism HTN - Secondary Discharge Diagnosis Chronic Problems (Last Updated 02/08/18 @ 18:05 by Bernadette Maloney MD) Open wound of scalp (Chronic) Dizziness (Chronic) Essential (primary) hypertension (Chronic) Atherosclerosis of [place] coronary artery of [place] heart without angina pectoris (Chronic) CABG- THRASHER to LAD, reverse SVG to post lateral, reverse SVG to OM 01/21/2017 Hyperlipidemia (Chronic) Diabetes mellitus (Chronic) Thyroid disorder (Chronic) Hospital Course and Treatment Imaging Results: CT/Brain/Head without Contrast IMPRESSION: Chronic involutional changes of the brain. RAD/Chest 1 View IMPRESSION: Stable increased markings at the lung bases slightly worse on the left side with blunting of the left costophrenic angle. MRI/Brain without Contrast IMPRESSION: Small acute lacunar infarct in the left internal capsule Mild atrophy and periventricular white matter ischemic changes. Chronic ischemic changes right cerebellar hemisphere normal right posterior thalamic infarct. CT/CTA Head W/WO Contrast IMPRESSION: Normal [place] without a demonstrated aneurysm or hemodynamically significant stenosis. CT/CTA Neck W/WO Contrast IMPRESSION: Atherosclerotic plaque formation at the origin of the right and left internal carotid arteries with less than 50% luminal stenosis. Echo: Interpretation Summary Moderately dilated left ventricle. The estimated ejection fraction is 45 %. Stage 1 diastolic dysfunction. There is moderate global hypokinesis of the left ventricle. Mildly dilated right ventricle. The left atrium is moderately enlarged. The right atrium is mildly enlarged. Mild (1+) posteriorly directed mitral valve insufficiency. Mild (1+) tricuspid valve insufficiency. Right ventricular systolic pressure estimated to be 37 mmHg. Mild pulmonary hypertension. Compared to echo report dated 08/03/2015, no appreciable chnages noted. Consults: Jerri - [place] Operations: None Procedures: 2-D Echocardiogram Summary of Care Provided: Hospital Course: The patient is a 67 year old M with pmhx 2 prior strokes in about the last year, concussion this past year, NSTEMI with CABG about 1 year ago, htn, hld, DMt2, who presented to the ER with c/o Right sided arm numbness and tingling with no weakness, dizziness, that started the day prior on waking up. He had CT brain which was negative, and indeterminate troponin. MRI brain was obtained - this revealed an acute left MCA infarct. Neuro was consulted and he was admitted to the PCU on cardiac monitoring Plavix was continued, aspirin added. He refused statin therapy as he has tried two that gave him severe muscle stiffness - could not walk. An echo was obtained which was unremarkable. CTA of the head and neck did not reveal significant stenosis. He was started on meclizine prn. Neuro felt the dizziness was more likely peripheral or post concussive syndrome. He may benefit from outpatient ENT referral. His symptoms improved overnight. He had no events on tele. We arranged for him to have a 30 day cardiac event monitor at [place]. He will follow up for this with Dr. Milton. He will also need to see Dr. Yadav (neuro) 3-4 weeks, and his PCP 1-2 weeks. This patient was seen by Guido Delong PA-C under the supervision of Dr. Houston. [] - Physical Exam General: Alert, Oriented x3, Cooperative HEENT: Atraumatic, PERRLA, EOMI, Normocephalic Neck: Supple, No JVD, Negative Carotid Bruits Lungs: Clear to auscultation, Normal air movement Cardiovascular: Regular rate, No murmurs Abdomen: Bowel Sounds Present, Soft, Non Tender Extremities: No edema, Capillary Refill Less than 3 Seconds Skin: No rashes, No breakdown Musculoskeletal: No Tenderness to Palpation of Joints or Extremities Neurological: Cranial nerves II-XII grossly intact Psych/Mental Status: Normal Affect, Appropriate, Alert and oriented to time, place, person, mood and affect Vital Signs Temp Pulse Resp BP Pulse Ox 98.2 F 60 18 140/63 H 94 02/09/18 12:28 02/09/18 12:28 02/09/18 12:28 02/09/18 12:28 02/09/18 12:28 Oxygen Delivery Method Room Air Weight: 236 lb 15.951 oz Body Mass Index (BMI) 31.2 Finger Stick Blood Glucose 220 Intake and Output for Last 24 Hours Intake Total 650 / 650 500 / 500 Balance 650 / 650 500 / 500 Laboratory Tests Past 24 Hrs Hemoglobin A1c 8.1 H Troponin I Triglycerides Cholesterol LDL Cholesterol VLDL Cholesterol HDL Cholesterol POC Glucose POC Glucose 222 H 129 H 211 H Discharge Diet: Low fat/ Low Cholesterol, 1800 Calorie Control Diet, 2000 mg Sodium Diet Discharge Activity: Return to Normal Activity Home Medications: Medications to take at Discharge Levothyroxine [Synthroid] 125 mcg PO DAILY 01/19/17 Multivitamin with Iron [Multivitamins with Iron] 1 ea PO DAILY 01/19/17 metformin 500 mg tablet 500 mg PO BID 03/19/17 losartan 25 mg tablet 25 mg PO DAILY 06/28/17 Insulin Human 75/25 [Humalog Mix 75-25 Kwikpen] 34 unit SC DAILY 10/06/17 Clopidogrel Bisulfate [Plavix] 75 mg PO DAILY 02/08/18 Gluc Bautista/Chondro Bautista A/Vit C/Mn [Glucosamine-Chondroitin Cap] 1 each PO 02/08/18 Insulin Human 75/25 [Humalog Mix 75-25 Kwikpen] 30 units SQ QHS 02/08/18 Metoprolol Tartrate 12.5 mg PO BID 02/08/18 Tumeric Extract 1 tab PO BID 02/08/18 Aspirin [Aspirin, Baby] 81 mg PO DAILY@0800 tab.chew 02/09/18 Meclizine HCl [Antivert] 12.5 mg PO TID PRN PRN #21 tablet 02/09/18 Following Prescrptions Were Given to Patient: Meclizine HCl [Antivert] 12.5 mg PO TID PRN PRN #21 tablet PRN Reason: Dizziness Other Amb Orders: Cardiac Holter Monitor, Set-Up [[facility]] Time Frame: 02/09/18, Location: None Selected Primary Care Physician: Ellis De Luna MD [Primary Care Provider] - Please follow up with your Primary Care Physician in: 1-2 weeks Please Follow Up With: Real Yadav MD When: 3-4 weeks Please Follow Up With: Wali Milton MD When: 3-4 weeks Disposition: Home Minutes spent on discharge:: 35 Patient Condition:: Stable Medical Necessity - Tobacco Use Smoking Status: Former smoker Meaningful Use Info Meaningful Use Diagnoses (Choose all that apply): Ischemic CVA - CVA Therapy Assessed for PT,OT and/or ST?: Yes - Ischemic Stroke Antithrombotic order at d/c?: Yes Dx of Atrial fib/flutter?: No Statins at discharge?: No Reason Statin not ordered: Drug Declined by Patient Primary Dx Acute Ischemic CVA?: Yes IV tPA ordered during stay?: No Reason IV t-PA not ordered: Procedure not Indicated <Sameer Houston - Last Filed: 02/09/18 16:25> Discharge Date and Diagnosis - Secondary Discharge Diagnosis Chronic Problems (Last Updated 02/08/18 @ 18:05 by Bernadette Maloney MD) Open wound of scalp (Chronic) Dizziness (Chronic) Essential (primary) hypertension (Chronic) Atherosclerosis of [place] coronary artery of [place] heart without angina pectoris (Chronic) CABG- THRASHER to LAD, reverse SVG to post lateral, reverse SVG to OM 01/21/2017 Hyperlipidemia (Chronic) Diabetes mellitus (Chronic) Thyroid disorder (Chronic) Hospital Course and Treatment Summary of Care Provided: This patient was seen in conjunction with Guido ROBERTO. I have independently interviewed and examined the patient and reviewed pertinent history, examination findings, laboratory and plan of management. I have reviewed the note and agree with the documented findings with the few additional points. In brief, patient is admitted for right arm numbness that was started a day before admission. No focal weakness/dysarthria/abnormal language deficit or blurry vision or loss of field of vision. Patient had previous 2 strokes in the past with residual difficulty in treating, coronary artery with non-STEMI status post CABG triple-vessel in January 2017. The patient had usable workup of stroke with CT angiogram of head and neck did not reveal hemodynamically significant stenosis or occlusion. On manager field services patient has PVCs but no significant arrhythmia. EKG normal sinus rhythm with first- degree AV block, right bundle branch block. MRI brain reported as small acute left internal capsule in MCA distribution. 2D echo was done and reported as moderately dilated LV, EF 45% with moderate global hypokinesis. Stage I diastolic dysfunction. Mildly dilated RV. Left atrium moderately enlarged. Right atrium mildly enlarged. Mild TR and MR. RVSP 37 mmHg. No appreciable change from previous echo of July 2015. Review of recurrent stroke, patient was recommended 30-day event monitor. Follow with Dr. Milton. Follow Dr. Yadav I have discussed my assessment with Guido ROBERTO and orders have been reviewed. Discharge medication reconciliation done. Discharge follow- up discussed with the patient Total time spent, exact 35 minutes on discharge meds reconciliation, examination, review of imaging and blood test and discussion with the patient on follow-up instructions. [] Clinical Impression(s) from Imaging Studies Brain CT 02/08/18 11:10 IMPRESSION: Chronic involutional changes of the brain. Electronically Signed: Jesus Alberto Blair MD at 12:17 EST Tel [phone], Service support , Chest X-Ray 02/08/18 11:10 IMPRESSION: Stable increased markings at the lung bases slightly worse on the left side with blunting of the left costophrenic angle. Electronically Signed: Jesus Alberto Blair MD at 12:16 EST Tel [phone], Service support , Brain MRI 02/08/18 14:12 IMPRESSION: Small acute lacunar infarct in the left internal capsule Mild atrophy and periventricular white matter ischemic changes. Chronic ischemic changes right cerebellar hemisphere normal right posterior thalamic infarct. Head CTA 02/08/18 14:13 IMPRESSION: Normal [place] without a demonstrated aneurysm or hemodynamically significant stenosis. Neck CTA 02/08/18 14:13 IMPRESSION: Atherosclerotic plaque formation at the origin of the right and left internal carotid arteries with less than 50% luminal stenosis. Subjective: Patient does not have weakness or numbness or tingling. - Physical Exam General: Alert, Oriented x3, Cooperative HEENT: Atraumatic, PERRLA, EOMI, Normocephalic Neck: Supple, No JVD, Negative Carotid Bruits Lungs: Clear to auscultation, Normal air movement Cardiovascular: Regular rate, Regular Rhythm, Normal S1, Normal S2, No murmurs, - - PVCs on manager field services Abdomen: Bowel Sounds Present, Soft, Non Tender, Non-Distended Extremities: No edema, Capillary Refill Less than 3 Seconds Skin: No rashes, No breakdown Musculoskeletal: No Tenderness to Palpation of Joints or Extremities, Arthritic Changes Neurological: Cranial nerves II-XII grossly intact, Deep Tendon Reflexes 2+/4 and Symmetrical, Neuro grossly intact, Motor Exam 5/5 strength throughout, - - No cerebellar signs Psych/Mental Status: Normal Affect, Appropriate Vital Signs Temp Pulse Resp BP Pulse Ox 98.2 F 60 18 140/63 H 94 02/09/18 12:28 02/09/18 12:28 02/09/18 12:28 02/09/18 12:28 02/09/18 12:28 Oxygen Delivery Method Room Air Weight: 236 lb 15.951 oz Body Mass Index (BMI) 31.2 Finger Stick Blood Glucose 220 Intake and Output for Last 24 Hours Intake Total 650 / 650 500 / 500 Balance 650 / 650 500 / 500 Laboratory Tests Past 24 Hrs POC Glucose POC Glucose 222 H 129 H 211 H Code Visit Inpatient E AND M: [id number] Disch Hosp 02/09/18 1257 <Electronically signed by Guido ROBERTO> Date Guido ROBERTO Cosigner Signature (if applicable): Date CC: FELISA Delong; Ellis De Luna MD; Sameer Houston MD Signed DISCHARGE INSTRUCTION Observed: 02/09/2018 Status: F Source: [place] 12:00 PM [facility] [place] [facility] Medical Records Department [address] [place] [address] Instructions for Home/Discharge Instructions 02/09/18 1013 MR#: [id number] Acct: [id number] Name: MICKY ROLDAN Rep #: [id number] : 1950 67 From: Guido ROBERTO PCP: Ellis De Luna MD Status: ADM IN ADDENDUM by FELISA Delong on 02/09/18 at 1200 Sent prescription for meclizine, 12.5 mg tabs, 1 tab PO TID as needed for dizziness. 02/09/18 1200 Date Guido Delong cc: Medhat Yadav MD; Ellis De Luna MD * Signed You will use the following diet at home:: Calorie/Carbohydrate Controlled (specify 1200, 1400, etc) - 1800 elizabeth / day, Cardiac Your food should be the consistency of: Regular Your liquids should be the consistency of: Regular/Thin Discharge Activity: Return to Normal Activity Allergies/Adverse Reactions: Allergies atorvastatin [From Lipitor] Adverse Reaction (Mild, Verified 02/08/18 17:17) mylagia lower leg pain lanolin Adverse Reaction (Unknown, Verified 08/01/17 10:03) Unknown Medications to take at Discharge Levothyroxine [Synthroid] 125 mcg PO DAILY 01/19/17 Multivitamin with Iron [Multivitamins with Iron] 1 ea PO DAILY 01/19/17 metformin 500 mg tablet 500 mg PO BID 03/19/17 losartan 25 mg tablet 25 mg PO DAILY 06/28/17 Insulin Human 75/25 [Humalog Mix 75-25 Kwikpen] 34 unit SC DAILY 10/06/17 Clopidogrel Bisulfate [Plavix] 75 mg PO DAILY 02/08/18 Gluc Bautista/Chondro Bautista A/Vit C/Mn [Glucosamine-Chondroitin Cap] 1 each PO 02/08/18 Insulin Human 75/25 [Humalog Mix 75-25 Kwikpen] 30 units SQ QHS 02/08/18 Metoprolol Tartrate 12.5 mg PO BID 02/08/18 Tumeric Extract 1 tab PO BID 02/08/18 Aspirin [Aspirin, Baby] 81 mg PO DAILY@0800 tab.chew 02/09/18 Orders to be completed after discharge: Cardiac Holter Monitor, Set-Up [[facility]] Time Frame: 02/09/18, Location: None Selected Primary Care Physician: Ellis De Luna MD [Primary Care Provider] - Please follow up with your Primary Care Physician in: 1-2 weeks Test Results: Test results from this visit will be discussed in further detail at your follow-up appointment, if applicable. Please Follow Up With: Real Yadav MD When: 3-4 weeks Please Follow Up With: Wali Milton MD When: 3-4 weeks Proposed Discharge Date: 02/09/18 02/09/18 1014 <Electronically signed by Guido ROBERTO> Date Guido ROBERTO CC: Medhat Yadav MD; Ellis De Luna MD BEDSIDE GLUCOSE Collected: 02/09/2018 Status: F Source: [place] 11:14 AM [facility] [place] [facility] TYPE CODE TESTS RESULT OUT OF REFERENCE UNITS RANGE LAB L501.080 70-110 mg/dL High BEDSIDE GLU 222 Result Comment: MANAGEMENT OF PATIENT CARE PER NURSING PROTOCOL Performed By: #### L501.080 #### [facility] Point of Care [address] [place] [address] ECHOCARDIOGRAM COMPLETE Observed: 02/09/2018 Status: F Source: [place] 9:48 AM [facility] [place] [facility] Cardiovascular Services [address] [place] [address] Echo Complete 02/09/18 0842 MR#: [id number] Acct: [id number] Name: MICKY ROLDAN Rep #: [id number] : 1950 67 From: Forrest Guo MD [facility] Status: ADM IN Ordering Dr: Bernadette Maloney MD Date: 02/08/18 Location: U Sex: M C Admitted: 02/08/18 Reason For Study: TIA/CVA Procedure This was a 2D Doppler, Color Flow transthoracic echocardiogram. Exam performed portable in patient room. Left Ventricle Moderately dilated left ventricle. The estimated ejection fraction is 45 %. Stage 1 diastolic dysfunction. There is moderate global hypokinesis of the left ventricle. Right Ventricle Mildly dilated right ventricle. Normal systolic function. Atria The left atrium is moderately enlarged. The right atrium is mildly enlarged. Normal atrial septum. Mitral Valve The mitral valve is structurally normal. No prolapse or stenosis seen. Mild (1+) posteriorly directed mitral valve insufficiency. Tricuspid Valve Normal tricuspid valve. Mild (1+) tricuspid valve insufficiency. Right ventricular systolic pressure estimated to be 37 mmHg. Mild pulmonary hypertension. Aortic Valve Trisinus/trileaflet aortic valve. Normal aortic valve. Pulmonic Valve Normal pulmonic valve. Trivial pulmonic valve insufficiency. Great Vessels Normal aortic root. Normal arch. Normal inferior vena cava. Inferior vena cava collapse with sniff. Pericardium/Pleural No pericardial effusion. MMode/2D Measurements AND Calculations LVIDd: 5.8 cm IVSd: 1.0 cm Ao root diam: 3.4 cm LVIDs: 4.5 cm LVPWd: 1.1 cm RVDd: 4.0 cm FS: 23.0 % LAV(MOD-bp): 121.5 ml EDV(MOD-sp4): 154.4 ml EDV(MOD-sp2): 137.7 ml LAV(MOD-bp) Indexed: 52.5 ml/m2 ESV(MOD-sp4): 78.8 ml EF(MOD-sp2): 40.8 % LAV(MOD-sp2): 115.9 ml EF(MOD-sp4): 48.9 % LAV(MOD-sp4): 105.5 ml SV(MOD-sp4): 75.6 ml SV(MOD-sp2): 56.1 ml LA A4 area: 31.2 cm2 LA dimension(2D): 5.1 cm RA A4 area: 25.2 cm2 Doppler Measurements AND Calculations MV E max re: 65.2 cm/sec Lat Peak E' Re: 8.3 cm/sec Med Peak E' Re: 5.6 cm/sec MV A max re: 31.6 cm/sec E/E' lat: 7.9 E/E' med: 11.7 MV E/A: 2.1 Ao V2 max: 91.7 cm/sec LV V1 max: 87.5 cm/sec PA V2 max: 88.7 cm/sec Ao max P.4 mmHg LV V1 max P.1 mmHg TR max re: 282.4 cm/sec TR max P.9 mmHg Interpretation Summary Moderately dilated left ventricle. The estimated ejection fraction is 45 %. Stage 1 diastolic dysfunction. There is moderate global hypokinesis of the left ventricle. Mildly dilated right ventricle. The left atrium is moderately enlarged. The right atrium is mildly enlarged. Mild (1+) posteriorly directed mitral valve insufficiency. Mild (1+) tricuspid valve insufficiency. Right ventricular systolic pressure estimated to be 37 mmHg. Mild pulmonary hypertension. Compared to echo report dated 08/03/2015, no appreciable chnages noted. Ordering Physician: Bernadette Maloney Performed By: Bhumi Mcdermott RDCS 02/09/18946 Date Forrest Guo MD CC: Bernadette Maloney; Ellis De Luna MD; Sameer Houston MD Date Dictated: 02/09/18841 Date Transcribed: 02/09/18946 Associate Designer: Signed BEDSIDE GLUCOSE Collected: 02/09/2018 Status: F Source: [place] 6:53 AM [facility] [place] [facility] TYPE CODE TESTS RESULT OUT OF REFERENCE UNITS RANGE LAB L501.080 70-110 mg/dL High BEDSIDE GLU 129 Result Comment: MANAGEMENT OF PATIENT CARE PER NURSING PROTOCOL Performed By: #### L501.080 #### [facility] Point of Care [address] [facility] [place], [place] [address] HEMOGLOBIN A1C Collected: 02/09/2018 Status: F Source: [place] 5:37 AM [facility] [place] [facility] TYPE CODE TESTS RESULT OUT OF RANGE REFERENCE UNITS LAB L501.9985 4.2-6.3 % High HGB A1C 8.1 Performed By: #### L501.9985 #### [facility] [address] [facility] [place], [address] LIPID PROFILE Collected: 02/09/2018 Status: F Source: [place] 5:25 AM [facility] [place] [facility] TYPE CODE TESTS RESULT OUT OF RANGE REFERENCE UNITS LAB L501.4900 200 mg/dL Normal CHOL 147 Result Comment: <200 mg/dL Desirable 200-240 mg/dL Borderline >240 mg/dL High Risk LAB L501.5000 mg/dL Normal TRIG 125 Result Comment: The drugs N-Acetylcysteine and Metamizole may falsely depress this assay. Serum Triglycerides Reference Interval Normal <150 mg/dL Borderline high 150 - 199 mg/dL High 200 - 499 mg/dL Very High > or = 500 mg/dL LAB L501.6400 mg/dL Low HDL 36 Result Comment: The drugs N-Acetylcysteine and Metamizole may falsely depress this assay. Reference Range HDL <40 mg/dL Low HDL Cholesterol HDL >or= 60 mg/dL High HDL Cholesterol LAB L501.6500 0-130 mg/dL Normal LDL 86 LAB L501.6600 5-40 mg/dL Normal VLDL 25 Performed By: #### L500.4100 #### [facility] [address] [place], [address] BEDSIDE GLUCOSE Collected: 02/08/2018 Status: F Source: [place] 9:43 PM [facility] [place] TYPE CODE TESTS RESULT OUT OF REFERENCE UNITS RANGE LAB L501.080 70-110 mg/dL High BEDSIDE GLU 211 Result Comment: MANAGEMENT OF PATIENT CARE PER NURSING PROTOCOL Performed By: #### L501.080 #### [facility] Point of Care [address] [place] [address] TROPONIN-I Collected: 02/08/2018 Status: F Source: [place] 6:30 PM [facility] [place] [facility] Order Comment: 'TROP' Serial specimen #1, #2 or #3: 3 TYPE CODE TESTS RESULT OUT OF RANGE REFERENCE UNITS LAB L501.4010 <0.045 ng/mL High 0.273 TROPONIN-I Result Comment: TROPONIN-I EXPECTED VALUES <0.045 Negative 0.045 - 0.590 Consistent with Cardiac Damage > OR = 0.600 Critical Value Not every elevated troponin is indicative of UT. These values should be used with clinical judgement in examining the patient's clinical picture for diagnosis. To establish a diagnosis of UT versus myocardial injury, there must be a demonstrated rise and/or fall in the troponin values, in addition to ischemic symptoms, EKG changes, new regional wall motion abnormality, and/or angiographical evidence. PLEASE NOTE: REFERENCE RANGES EDITED 17 Performed By: #### L501.4010 #### [facility] [address] [place], [address] HISTORY AND PHYSICAL Observed: 02/08/2018 Status: F Source: [place] EXAM 6:19 PM [facility] [place] [facility] [facility] Medical Records Department [address] [place] [address] History and Physical 02/08/18 1730 MR#: [id number] Acct: [id number] Name: MICKY ROLDAN Rep #: [id number] : 1950 67 From: Guido ROBERTO PCP: Ellis De Luna MD Status: ADM IN Y Location: [place] [address] ADDENDUM by FELISA Delong on 02/08/18 at 1800 Code Visit Addendum: Pt refuses to try any statin medications at this time stating he tried two in the past and both of they gave him severe muscle stiffness to that point that he could not move. 02/08/18 1800 <Electronically signed by Guido ROBERTO> Date Guido Delong cc: FELISA Delong; Bernadette Maloney; Ellis De Luna MD * Signed Addendum entered and electronically signed by FELISA Feng 02/08/18 18:00: Code Visit Addendum: Pt refuses to try any statin medications at this time stating he tried two in the past and both of they gave him severe muscle stiffness to that point that he could not move. Original Note: <Guido Delnog - Last Filed: 02/08/18 17:59> Problem List (1) CVA (cerebral vascular accident) Status: Acute (2) Essential (primary) hypertension Status: Chronic (3) Hyperlipidemia Status: Chronic (4) Diabetes mellitus Status: Chronic (5) Thyroid disorder Status: Chronic History of Present Illness Date of Admission: 02/08/18 Chief Complaint: right arm numbness The patient is a 67 year old M of 2 prior strokes, first stroke was in fall 2016, second stroke in spring 2017, with residual difficulty reading, history of CAD with non-STEMI in December 2016 followed by triple vessel CABG in January 2017, patient of Dr. Milton, also with a history of hypertension, hyperlipidemia, type 2 diabetes, and traumatic concussion and June 2017 related to a workplace injury, who presents to the emergency room with complaints of right sided arm numbness and tingling. Patient states he woke up with a sensation yesterday morning. It continued throughout the day and he figured he would get it checked out at his follow-up appointment he had the next day-he was planning on getting a CT of the chest for known pulmonary nodules. However the next day he had worsening dizziness and felt the need to go to the urgent care-they sent him to the emergency room. He has ongoing numbness and tingling of the right arm denies weakness. He denies focal weakness in his upper or lower extremities. He has no new vision changes, he has chronic numbness in his LE. He states he only takes plavix following his prior UT and CVAs, and does not take statins 2/2 weakness/aches/inability to walk. He denies a hx of Afib. He smoked about 30 years but quit in 1997. [] Past Medical History Past Medical History (Chronic Problems): Chronic Problems (Last Updated 03/18/17 @ 10:35 by SUKI Light) Open wound of scalp (Chronic) Dizziness (Chronic) Essential (primary) hypertension (Chronic) Atherosclerosis of chitina coronary artery of chit[place] heart without angina pectoris (Chronic) CABG- THRASHER to LAD, reverse SVG to post lateral, reverse SVG to OM 01/21/2017 Hyperlipidemia (Chronic) Diabetes mellitus (Chronic) Thyroid disorder (Chronic) Medical History: Medical History (Last Updated 03/18/17 @ 10:35 by SUKI Light) Essential (primary) hypertension (Chronic) I10 Atherosclerosis of [place]it[place] coronary artery of [place] heart without angina pectoris (Chronic) I25.10 CABG- THRASHER to LAD, reverse SVG to post lateral, reverse SVG to OM 01/21/2017 Unstable angina pectoris (Acute) NSTEMI (non-ST elevated myocardial infarction) (Acute) I21.4 Hyperlipidemia (Chronic) E78.5 Diabetes mellitus (Chronic) E11.9 Thyroid disorder (Chronic) History of left heart catheterization Z98.890 multivessel CAD 01/19/2017 Allergies atorvastatin [From Lipitor] Adverse Reaction (Mild, Verified 02/08/18 17:17) mylagia lower leg pain lanolin Adverse Reaction (Unknown, Verified 08/01/17 10:03) Unknown Home Medications: Ambulatory Orders Medication Instructions Recorded Levothyroxine [Synthroid] 125 mcg PO DAILY 01/19/17 Surgical History: Surgical History (Last Reviewed 06/28/17 @ 09:08 by Stephany Lugo) Hx of CABG Onset Date: 01/21/17 Z95.1 THRASHER to LAD, reverse SVG to post lateral, reverse SVG to OM @ [facility] Surgical History: no surgical history Psychiatric History: No pertinent psych hx Lives: Spouse/ Significant Other Smoking Status: Former smoker Alcohol: None Drugs: None - *Family History Sibling Family History: Family History (Last Reviewed 06/28/17 @ 09:08 by Stephany Lugo) Sister CAD (coronary artery disease) Diabetes Brother CAD (coronary artery disease) History Items: Heart Disease - UT Maternal Family History: Family History (Last Reviewed 06/28/17 @ 09:08 by Stephany Lugo) Sister CAD (coronary artery disease) Diabetes Brother CAD (coronary artery disease) History Items: No pertinent history Paternal Family History: Family History (Last Reviewed 06/28/17 @ 09:08 by Stephany Lugo) Sister CAD (coronary artery disease) Diabetes Brother CAD (coronary artery disease) History Items: No pertinent history Review of Systems Constitutional: Denies: Chills, Fever, Weight Change HEENT: Denies: Head Aches, Sinus Congestion, Sinus Drainage Cardiovascular: Denies: Chest Pain, Palpitations Respiratory: Denies: Cough, Shortness of breath at rest, Sputum production Gastrointestinal: Denies: Abdominal Pain, Nausea, Vomiting Genitourinary: Denies: Dysuria Musculoskeletal: Denies: Joint Pain, Joint Tenderness Skin: Denies: Rash, Wounds Neurological: Reports: Numbness, Tingling, - - dizziness. Denies: Focal weakness Psychiatric: Denies: Anxiety, Depression, Homicidal Ideations, Suicidal Ideations Hematologic/ Lymphatic: Denies: Easy Bruising, Easy Bleeding VTE Information - Inpt Only VTE Present on Admission: No VTE Mechan Device Prophylaxis: None VTE Pharm Prophylaxis ordered?: Yes - Physical Exam General: Alert, Oriented x3, Cooperative HEENT: Atraumatic, PERRLA, EOMI, Normocephalic Neck: Supple, No JVD, Negative Carotid Bruits Lungs: Clear to auscultation, Normal air movement Cardiovascular: Regular rate, No murmurs Abdomen: Bowel Sounds Present, Soft, Non Tender Extremities: No edema, Capillary Refill Less than 3 Seconds Skin: No rashes, No breakdown Musculoskeletal: No Tenderness to Palpation of Joints or Extremities Neurological: Cranial nerves II-XII grossly intact Psych/Mental Status: Normal Affect, Appropriate Vital Signs Temp Pulse Resp BP Pulse Ox 98.1 F 58 L 20 H 148/78 H 96 02/08/18 10:50 02/08/18 16:34 02/08/18 16:34 02/08/18 16:34 02/08/18 16:34 Oxygen Delivery Method Room Air Weight: 240 lb Body Mass Index (BMI) 31.6 Finger Stick Blood Glucose 220 Laboratory Tests Past 24 Hrs WBC 6.2 WBC RBC Hgb Hct MCV MCH MCHC RDW RDW Differential Plt Count MPV Immature Gran % (Auto) Neut % (Auto) Lymph % (Auto) POC Glucose POC Glucose 220 H Assessment/Plan All Active Problems (Last Updated 02/08/18 @ 18:05 by Bernadette Maloney MD) Ischemic stroke (Acute) CVA (cerebral vascular accident) (Acute) 1. Acute CVA - MRI c/w stroke-small acute lacunar infarct in the left internal capsule, chronic ischemic changes right cerebellar hemisphere, mild atrophy and periventricular white matter ischemic changes.. 2 prior strokes Dec 2016 and June 2017. Continue plavix, add aspirin and statin (will likely refuse statin - intolerant). Obtain echo, consult neuro, maintain on tele. Permissive HTN. CTA head and neck done with no acute issues. 2. Elevated troponin - trend. EKG with bifasicular block. Repeat EKG in AM, maintain tele monitoring. 3. Hx CAD prior NSTEMI 12/2016 with CABGx3 01/2017 - Pt of Dr. Milton - continue plavix, hold losartan, metoprolol for CVA 4. DMt2 with obesity - hold metformin, add SSI, dietary consult. 5. Hypothyroidism - continue Synthroid. 6. HTN -permissive DVT prophylaxis: Lovenox Discharge planning: PT OT and ST eval's. No new focal weakness, patient will likely return home. This patient was seen by Guido Delong PA-C under the supervision of Doctor Haider. <Bernadette Maloney - Last Filed: 02/08/18 18:19> History of Present Illness The patient is a 67 year old M [] Past Medical History Medical History: Medical History (Last Updated 03/18/17 @ 10:35 by SUKI Light) Essential (primary) hypertension (Chronic) I10 Atherosclerosis of [place]it[place] coronary artery of [place] heart without angina pectoris (Chronic) I25.10 CABG- THRASHER to LAD, reverse SVG to post lateral, reverse SVG to OM 01/21/2017 Hyperlipidemia (Chronic) E78.5 Diabetes mellitus (Chronic) E11.9 Thyroid disorder (Chronic) History of left heart catheterization Z98.890 multivessel CAD 01/19/2017 Allergies atorvastatin [From Lipitor] Adverse Reaction (Mild, Verified 02/08/18 17:17) mylagia lower leg pain lanolin Adverse Reaction (Unknown, Verified 08/01/17 10:03) Unknown Surgical History: Surgical History (Last Reviewed 06/28/17 @ 09:08 by Stephany Lugo) Hx of CABG Onset Date: 01/21/17 Z95.1 THRASHER to LAD, reverse SVG to post lateral, reverse SVG to OM @ Jack - *Family History Sibling Family History: Family History (Last Reviewed 06/28/17 @ 09:08 by Stephany Lugo) Sister CAD (coronary artery disease) Diabetes Brother CAD (coronary artery disease) Maternal Family History: Family History (Last Reviewed 06/28/17 @ 09:08 by Stephany Lugo) Sister CAD (coronary artery disease) Diabetes Brother CAD (coronary artery disease) Paternal Family History: Family History (Last Reviewed 06/28/17 @ 09:08 by Stephany Lugo) Sister CAD (coronary artery disease) Diabetes Brother CAD (coronary artery disease) - Physical Exam Vital Signs Temp Pulse Resp BP Pulse Ox 97.8 F 71 20 H 175/85 H 94 02/08/18 17:46 02/08/18 17:46 02/08/18 17:46 02/08/18 17:48 02/08/18 17:46 Oxygen Delivery Method Room Air Weight: 236 lb 15.951 oz Body Mass Index (BMI) 31.2 Finger Stick Blood Glucose 220 Laboratory Tests Past 24 Hrs WBC 6.2 WBC RBC Hgb Hct MCV MCH MCHC RDW RDW Differential Plt Count MPV Immature Gran % (Auto) Neut % (Auto) Lymph % (Auto) POC Glucose POC Glucose 220 H Assessment/Plan Hospitalist note: I am seeing this patient in conjunction with Guido Delong. I independently seen and examined the patient. History and physical, laboratory data and imaging studies reviewed and I agree with above admission and workup plan. Patient seen and examined. Patient came to the emergency department today because of right arm numbness that started yesterday. He denied focal arm or leg weakness. He denied slurred speech or blurred vision. He complains of dizziness, being unsteady but this has been going on for the last several months and this is attributed to brain concussion secondary to injury at workplace. He states that his dizziness was worse today. - Physical Exam General: Alert, Oriented x3, Cooperative, No apparent distress. HEENT: Atraumatic, PERRLA, EOMI. Neck: Supple, No JVD, Negative Carotid Bruits, Trachea Midline, Thyroid Normal. Lungs: Clear to auscultation, Normal air movement, No rhonchi, No wheeze, No rales. Cardiovascular: Regular rate, Regular Rhythm, Normal S1, Normal S2, PMI Normal. Abdomen: Bowel Sounds Present, Soft, Non Tender, Non-Distended, No Hepato-splenomegaly. Extremities: No clubbing, No cyanosis, No edema Skin: No rashes, No breakdown Neurological: Cranial nerves are intact, normal power and tone of all limbs. Neuro grossly intact Vital Signs are stable. Assessment and plan: #1 acute ischemic stroke of the left internal capsule: MRI brain reviewed, revealed small acute infarction of the left internal capsule. Patient has no significant motor deficit. His blood pressure slightly elevated, permissive, other vital signs are stable. EKG revealed normal sinus rhythm with first-degree AV block, right bundle branch block, no acute ischemic changes and no cardiac arrhythmias. CTA of the head showed no hemodynamically significant vascular disease or stenosis. CTA of the neck revealed bilateral atherosclerosis of the carotids less than 50% stenosis. Plan: Admit to PCU, cardiac monitoring, serial cardiac enzymes, 2D echocardiogram, start baby aspirin, continue Plavix, neurology consult, PT OT evaluation and treatment. Patient refused any type of statins because of side effects. I offered him to start on pravastatin which is less likely to cause muscle pains and aches but he refused. #2 borderline elevated troponin/probable non-ST elevation UT: Patient denies any chest pain. EKG reviewed as above, no ischemic changes. Troponin is borderline elevated. He had a history of non-STEMI and CABG back and January,. Plan: Cardiac monitoring, serial cardiac enzymes, 2D echocardiogram, continue aspirin and Plavix. #3 CAD status post CABG: Plan as above, 2D echocardiogram, continue Plavix, start aspirin, continue metoprolol and losartan. #4 history of stroke: Patient had 2 strokes in the last 2 years, without significant deficit. Unclear why patient has recurrent strokes. EKG revealed no evidence of cardiac arrhythmias. Plan as above. #5 other chronic medical problems: Stable, continue current medications as above. This note was generated with [employer] software. It may contain incorrect words, spelling, and punctuation that were not noted in checking the note before signing. Code Visit Inpatient E AND M: [id number] Init Hosp L3 02/08/18 1745 <Electronically signed by Guido ROBERTO> Date Guido ROBERTO Cosigner Signature: Date (if applicable) CC: FELISA Delong; Bernadette Maloney; Ellis De Luna MD Signed EMERGENCY DEPARTMENT Observed: 02/08/2018 Status: F Source: [place] SUMMARY 5:25 PM [facility] [place] [facility] Medical Records Department [address] [place] [address] Emergency Department Summary 02/08/18 1112 MR#: [id number] Acct: [id number] Name: MICKY ROLDAN Rep #: [id number] : 1950 67 From: Erika Jacob MD PCP: Ellis De Luna MD Status: DEP ER - ER Visit Summary Date of Service: 02/08/18 Chief Complaint: Dizziness History of Present Illness: The patient is a 67 M with history of intermittent dizziness after a major concussion who presents for an episode of dizziness today. Patient was getting a chest CT due to a persistent cough this morning. He felt well until he sat up from the CT table. He had sudden onset of dizziness which she describes as being in an earthquake. He has difficulty balancing but denies any sensation of presyncope. He is also complaining of right arm numbness since yesterday morning. He states when he woke up his right arm felt like it was asleep. This is mainly on the radial side and from the distal upper arm down. He has chronic sensation that his fingertips are asleep, but this right arm numbness is new. It improved during the day and recurred this morning when he woke up. It is improved some but is still present. He denies any other complaints at this time. Physical Examination: Vital signs: afebrile, hemodynamically stable, no hypoxia on room air General: well nourished, well developed, in no distress Skin: warm, dry, no rash, no pallor HEENT: normocephalic and atraumatic; PERRL, EOMI, no nystagmus, moist mucous membranes Cardiovascular: regular rate and rhythm without murmurs, no peripheral edema, 2+ pulses all distal extremities Respiratory: No increased work of breathing, lungs are clear to auscultation bilaterally, no rales, rhonchi or wheezing Abdominal: Abdomen is soft, nontender with normoactive bowel sounds, no guarding or rebound, no masses MSK: Moves all extremities, no deformities, normal strength Neuro: Awake and alert, oriented 4. No facial droop, sensation and motor function intact and symmetric in all extremities. Patient able to walk unassisted. Normal cerebellar testing. Test Results: Abnormal Lab Results WBC RBC Hgb Hct MCV MCH MCHC RDW Clinical Impression(s) from Imaging Studies Brain CT 02/08/18 11:10 IMPRESSION: Chronic involutional changes of the brain. Electronically Signed: Jesus Alberto Blair MD at 12:17 EST Tel [phone], Service support , Chest X-Ray 02/08/18 11:10 IMPRESSION: Stable increased markings at the lung bases slightly worse on the left side with blunting of the left costophrenic angle. Electronically Signed: Jesus Alberto Blair MD at 12:16 EST Tel [phone], Service support , Head CTA 02/08/18 14:13 IMPRESSION: Normal [place] without a demonstrated aneurysm or hemodynamically significant stenosis. Electronically Signed: Jesus Alberto Blair MD at 15:16 EST Tel [phone], Service support , Neck CTA 02/08/18 14:13 IMPRESSION: Atherosclerotic plaque formation at the origin of the right and left internal carotid arteries with less than 50% luminal stenosis. Electronically Signed: Jesus Alberto Blair MD at 15:14 EST Tel [phone], Service support , Medications Given Aspirin (Aspirin) 325 mg PO X1 ONE Stop: 02/08/18 16:58 Discontinued Medications Sodium Chloride () 1,000 mls @ 999 mls/hr IV .Q1H1M ONE Stop: 02/08/18 12:10 Last Admin: 02/08/18 11:33 Dose: 999 mls/hr Meclizine HCl (Antivert) 25 mg PO X1 ONE Stop: 02/08/18 11:26 Last Admin: 02/08/18 11:32 Dose: 25 mg Emergency Department Course and Treatment: Patient presents for onset of disequilibrium when going from supine position to sitting position. Patient has a history of similar symptoms, but was concerned that the onset was so sudden. Patient has an NIH of 0. He is complaining of the right arm numbness, but there is no objective sensory deficit on exam.. Because of multiple neuro complaints, stroke workup was performed. Head CT showed no acute process. Labs were remarkable only for an elevated troponin of 0.233. EKG showed a right bundle branch block with first-degree AV block and no ischemic changes. This is similar to patient's prior EKGs. The elevated troponin was discussed with Dr. Veliz, who requested a 3-hour rule out, and if no significant change patient is cleared from cardiology standpoint to be discharged home. Repeat EKG was unchanged and the repeat troponin was not significantly changed. Patient was discussed with Dr. Yadav regarding the patient's history of both stroke and concussion and his symptoms today that are concerning for possible central origin versus exacerbation of his chronic residual symptoms from his concussion and his right shoulder injury. A CTA of the head and neck and an MRI of the brain was performed to evaluate for stroke. The CTA of the head and neck showed no significant vascular stenosis or abnormalities. The MRI brain did show a small left internal capsule acute infarct, likely related to patient's new right arm numbness. Patient was not a candidate for tPA, due to symptoms ongoing for >24 hours and NIH of 0. The MRI result was discussed with Dr. Glass, who requested patient be admitted for stroke workup. Patient had passed his swallow evaluation, administered by me, earlier in his ED course and was given a dose of aspirin. Patient's NIH remained 0 during ED course. Patient discussed with the hospitalist for admission for acute ischemic stroke and right arm numbness. Treatment Plan: [] Disposition: [] Impression: Acute ischemic stroke, acute left internal capsule infarct, right arm numbness, recurrent vertigo secondary to concussion This note was generated with [employer] dictation software. It may contain incorrect words, spelling, and punctuation that were not noted in review of the chart prior to signing ED Disposition - Plan for ED Patient: Disposition: Home or Assisted Living Chief Complaint: Dizziness Referrals: Ellis De Luna MD [Primary Care Provider] - What to do if you have Problems For any increased pain, shortness of breath, bleeding, nausea or vomiting, chest pain, or any unexpected problems, contact your Primary Care Provider. Call [facility] ([phone]) or report to the closest Emergency Room. Call 911 if necessary. 02/08/18 8327 <Electronically signed by Erika Jacob MD> Date Erika Jacob MD Cosigner Signature (If Indicated): Date CC: Ellis De Luna MD TROPONIN-I Collected: 02/08/2018 Status: F Source: [place] 3:25 PM [facility] [place] TYPE CODE TESTS RESULT OUT OF RANGE REFERENCE UNITS LAB L501.4010 <0.045 ng/mL High 0.271 TROPONIN-I Result Comment: TROPONIN-I EXPECTED VALUES <0.045 Negative 0.045 - 0.590 Consistent with Cardiac Damage > OR = 0.600 Critical Value Not every elevated troponin is indicative of UT. These values should be used with clinical judgement in examining the patient's clinical picture for diagnosis. To establish a diagnosis of UT versus myocardial injury, there must be a demonstrated rise and/or fall in the troponin values, in addition to ischemic symptoms, EKG changes, new regional wall motion abnormality, and/or angiographical evidence. PLEASE NOTE: REFERENCE RANGES EDITED 17 Performed By: #### L501.4010 #### [facility] [address] [place], [address] CTA NECK W/WO Observed: 02/08/2018 Status: F Source: [place] CONTRAST 2:14 PM [facility] [place] [facility] Imaging Services [address] [place] [address] CTA Neck W/WO Contrast MR#: [id number] Acct: [id number] Name: MICKY ROLDAN Rep #: [id number] : 1950 M 67 From: Jesus Alberto Blair MD PCP: Ellis De Luna MD Status: [facility] Study: CTA Neck W/WO Contrast Date of Exam: 02/08/18 Exam# [id number] Ordering Dr: Erika Jacob MD STUDY: CTA NECK WITH CONTRAST REASON FOR EXAM: Male, 67 years old. Right arm numbness. Dizziness. History of lung cancer. RADIATION DOSAGE (If Supplied By Facility): CTDIvol = ( 28.86 ) mGy, DLP = ( 804.38 ) mGycm TECHNIQUE: CT angiography with multi-detector data acquisition was performed from the aortic arch to the skull base following intravenous administration of 100ml ml of Isovue 370 contrast. MIP images were reconstructed from the axial data set. Post-processing of the angiographic images was performed, with multiplanar reformation and 3D reconstruction. Individualized dose optimization techniques were used for this CT. COMPARISON: None. FINDINGS: AORTIC ARCH: There is atherosclerotic calcific plaque formation of the aortic arch and great vessels arising from the aortic arch, without a hemodynamically significant stenosis. There is a normal origin of the brachiocephalic, left common carotid, and left subclavian arteries. This evidence of prior midline sternotomy and coronary artery bypass surgery. RIGHT CAROTID ARTERIES: Normal right common carotid artery (CCA). Normal right common carotid bulb. There is mild atherosclerotic plaque formation of the origin of the right internal carotid artery with less than 50% cross sectional diameter stenosis. Normal visualized cervical portion of the right internal carotid artery. Normal origin of the right external carotid artery (ECA). LEFT CAROTID ARTERIES: Normal left common carotid artery (CCA). Normal left common carotid bulb. There is mild atherosclerotic plaque formation of the origin of the left internal carotid artery with less than 50% cross sectional diameter stenosis. Normal visualized cervical portion of the left internal carotid artery. Normal origin of the left external carotid artery (ECA). VERTEBRAL ARTERIES: There is enhancement within the bilateral vertebral arteries with a small right vertebral artery, and a dominant left vertebral artery. CT/CTA Neck W/WO Contrast IMPRESSION: Atherosclerotic plaque formation at the origin of the right and left internal carotid arteries with less than 50% luminal stenosis. Electronically Signed: Jesus Alberto Blair MD at 15:14 EST Tel [phone], Service support , CC: Ellis De Luna MD; Erika Jacob MD Associate Designer: Signed CTA HEAD W/WO Observed: 02/08/2018 Status: F Source: [place] CONTR[place] 2:14 PM [facility] [place] Imaging Services [address] [place] [address] CTA Head W/WO Contrast MR#: [id number] Acct: [id number] Name: MICKY ROLDAN Rep #: [id number] : 1950 M 67 From: Jesus Alberto Blair MD PCP: Ellis De Luna MD Status: DEP ER Study: CTA Head W/WO Contrast Date of Exam: 02/08/18 Exam# [id number] Ordering Dr: Erika Jacob MD STUDY: CTA OF THE BRAIN REASON FOR EXAM: Male, 67 years old. Dizziness. Right arm numbness. RADIATION DOSAGE (If Supplied By Facility): CTDIvol = ( 28.86 ) mGy, DLP = ( 804.36 ) mGycm TECHNIQUE: CT angiography was performed with a multi-detector CT scanner. Data acquisition was obtained from the skull base through the vertex following intravenous administration of 100 ml of Isovue-370. MIP images were reconstructed from the axial data set. Post-processing of the angiographic images was performed, with multiplanar reformation and 3D reconstruction. Individualized dose optimization techniques were used for this CT. COMPARISON: None. FINDINGS: Normal bilateral petrous carotid arteries. There is calcified plaque formation of the right cavernous carotid artery, without a cross-sectional luminal stenosis. There is calcified plaque formation of the left cavernous carotid artery, without a cross-sectional luminal stenosis. Normal right A1 segments of the anterior cerebral artery. Normal left A1 segments of the anterior cerebral artery. Normal intact anterior communicating artery (ACOM). Normal bilateral A2 segments of the anterior cerebral arteries. Normal right M1 and M2 segments of the middle cerebral arteries, with a normal M1 bifurcation. Normal left M1 and M2 segments of the middle cerebral arteries, with a normal M1 bifurcation. Normal right posterior communicating artery (PCOM). Normal left posterior communicating artery (PCOM). Normal bilateral vertebral arteries. Normal basilar artery with a normal basilar bifurcation. The visualized bilateral superior cerebellar (SCA) arteries are normal. Normal bilateral P1, P2 and visualized P3 segments of the posterior cerebral arteries. There is no demonstrated aneurysm of the [place]. There is no demonstrated abnormality of the visualized brain. CT/CTA Head W/WO Contrast IMPRESSION: Normal [place] without a demonstrated aneurysm or hemodynamically significant stenosis. Electronically Signed: Jesus Alberto Blair MD at 15:16 EST Tel [phone], Service support , CC: Ellis De Luna MD; Erika Jacob MD Associate Designer: Signed BRAIN WITHOUT Observed: 02/08/2018 Status: F Source: [place] 2:14 PM [facility] [place] [facility] Imaging Services [address] [place] [address] Brain without Contrast MR#: [id number] Acct: [id number] Name: MICKY ROLDAN Rep #: [id number] : 1950 M 67 From: Ellis Barriga MD PCP: Ellis De Luna MD Status: ADM IN Study: Brain without Contrast Date of Exam: 02/08/18 Exam# [id number] Ordering Dr: Erika Jacob MD STUDY: MRI BRAIN WITHOUT CONTRAST REASON FOR EXAM: Male, 67 years old. Posttraumatic concussion and vertigo TECHNIQUE: Standardized multiplanar fat and water weighted pulse sequences were obtained. COMPARISON: August 02, 2017 FINDINGS: Mild atrophy and periventricular white matter ischemic changes.. There is an old lacunar infarct in the right posterior thalamus and restricted diffusion within the posterior horn of left internal capsule. There is no extra-axial fluid accumulation. There is gliosis in the left posterior temporal lobe consistent with old infarct which has decreased in size significantly since prior study Normal flow voids within the major intracranial circulation suggesting patency by spin echo criteria. Normal sella turcica, pituitary gland, infundibular stalk, optic chiasm and hypothalamus. Normal tectal plate and pineal gland. Normal midbrain, renita and medulla. Chronic ischemic changes within the right cerebellar hemisphere. Normal basal cisterns. Normal bilateral temporal bones. Normal bilateral internal auditory canals. No demonstrated orbital abnormality, within the constraints of a routine brain study. There is minor mucosal thickening within the ethmoid air cells. Normal calvarium and skull base. Normal visualized soft tissue structures. Normal visualized upper cervical spine. MRI/Brain without Contrast IMPRESSION: Small acute lacunar infarct in the left internal capsule Mild atrophy and periventricular white matter ischemic changes. Chronic ischemic changes right cerebellar hemisphere normal right posterior thalamic infarct. N.B. : The above information has been verbally conveyed by Ellis Barriga MD to Dr. Jacob, HERNANDEZ, on 02/08/2018 17:32:42 (ET). Electronically Signed: Ellis Barriga MD at 16:17 EST , Service support , CC: Ellis De Luna MD; Erika Jacob MD Associate Designer: Signed PROGRESS Observed: 02/08/2018 Status: COMPLETED Source: [place] 12:30 PM [facility] REPOSITORY HNO ID: [id number] Author: Dorothy León Ct Service: (none) Author Type: (none) Type: Progress Notes Filed: 02/08/2018 12:30 PM Note Text: Radiology Service Progress Note PATIENT NAME: Micky Roldan DATE OF SERVICE: February 08, 2018 TIME: 12:30 PM PATIENT IDENTITY VERIFICATION COMPLETED USING TWO (2) METHODS: Patient confirmed name verbally and Date of . PATIENT GENDER DATA: Male PATIENT RELEVANT IMPLANT DATA REVIEWED: Not Applicable RADIOLOGY DEPARTMENT: CT; Exam(s) Completed: Chest PERIPHERAL IV DATA: Not applicable SIGNED BY: Dorothy León Ct February 08, 2018 12:30 PM CBC W/DIFF, AUTOMATED Collected: 02/08/2018 Status: F Source: [place] 11:25 AM [facility] [place] [facility] TYPE CODE TESTS RESULT OUT OF RANGE REFERENCE UNITS LAB L100.1000 4.4-11.0 K/mm3 Normal WBC 6.2 LAB L100.1200 4.6-6.2 M/mm3 Normal RBC 5.13 LAB L100.1300 13.0-16.5 g/dl Normal HGB 14.2 LAB L100.1400 40-54 % Normal HCT 43.8 LAB L100.1500 80-94 fL Normal MCV 85.4 LAB L100.1600 27.0-32.0 pg Normal MCH 27.7 LAB L100.1700 32-36 g/gl Normal MCHC 32.4 LAB L100.1810 11.6-14.6 % High RDW CV 15.5 LAB L100.1820 35.1-43.9 fl High RDW SD 48.0 LAB L100.1900 150-450 K/mm3 Normal PLT 175 LAB L100.2000 6.2-12.0 fl Normal MPV 11.4 LAB L100.2100 47-70 % Normal NEUT% 64.3 LAB L100.2200 19-41 % Normal LY% 24.2 LAB L100.2300 0-10 % Normal MONO% 7.6 LAB L100.2400 0-5 % Normal EO% 2.8 LAB L100.2500 0-1 % Normal BASO% 0.5 LAB L100.2550 0.0-0.9 % Normal IM GRAN % 0.600 Result Comment: IG% - Immature Granulocytes (promyelocytes, myelocytes and metamyelocytes) > 1% indicates that a LEFT SHIFT is Present. LAB L100.2620 2.0-7.7 X10 3/uL Normal Absolute Neut 4.0 LAB L100.2720 0.83-4.51 X10 3/ul Normal Absolute Lymph 1.49 Performed By: #### L100.0100 #### [facility] [address] [facility]. [facility] [id number] PROTHROMBIN TIME W/INR Collected: 02/08/2018 Status: F Source: [place] 11:25 AM [facility] [place] [facility] TYPE CODE TESTS RESULT OUT OF RANGE REFERENCE UNITS LAB L300.4150 11.7-14.9 SECONDS Normal PROTIME 12.8 LAB L300.4200 Normal INR 1.0 Performed By: #### L300.3900, L300.4310 #### [facility] [address] [facility] [address] PARTIAL THROMBOPLAST Collected: 02/08/2018 Status: F Source: [place] TIME 11:25 AM [facility] [place] [facility] TYPE CODE TESTS RESULT OUT OF RANGE REFERENCE UNITS LAB L300.4310 24.1-36.2 Seconds Normal PTT 31.0 Performed By: #### L300.3900, L300.4310 #### [facility] [address] [place], [place], [id number] BASIC METABOLIC Collected: 02/08/2018 Status: F Source: [place] PROFILE (BMP) 11:25 AM [facility] [place] [facility] TYPE CODE TESTS RESULT OUT OF RANGE REFERENCE UNITS LAB L501.0100 74-106 mg/dL High GLU 211 Result Comment: Glucose result greater than or equal to 200 mg/dL suggests DIABETES MELLITUS per A.D.A. criteria. Please note revised GLUCOSE reference range effective 2017. LAB L501.1000 7-18 mg/dL High BUN 22 LAB L501.1100 0.70-1.30 mg/dL Normal CREAT,SERUM 1.16 Result Comment: The validity of the calculated GFR AND GFRAA in patients over 70 years has not been determined. Clinical correlation is essential. LAB L501.1110 >60 mL/min Normal EST GFR 67 Result Comment: Non- GFR Calc LAB L501.1115 >60 mL/min Normal EST GFR - AA 81 Result Comment: GFR Calc LAB L501.1255 ml/min Normal Estimated CRCL 69.84 LAB L501.1300 10-20 RATIO Normal BUN/CRE 19.0 LAB L501.2200 8.5-10 mg/dL Normal .1 CA 8.6 LAB L501.5300 136-14 mmol/L Normal 5 NA 139 LAB L501.5600 3.5-5. mmol/L Normal 1 K 4.3 LAB L501.5900 98-107 mmol/L Normal CL 105 LAB L501.6100 21.0-3 mmol/L Normal 2.0 CO2 28.0 LAB L501.6200 5-15 Normal GAP 6 Performed By: #### L500.2500, L501.4010, L501.5200 #### [facility] [address] [place], [address] TROPONIN-I Collected: 02/08/2018 Status: F Source: [place] 11:25 AM [facility] [place] [facility] TYPE CODE TESTS RESULT OUT OF RANGE REFERENCE UNITS LAB L501.4010 <0.045 ng/mL High 0.233 TROPONIN-I Result Comment: TROPONIN-I EXPECTED VALUES <0.045 Negative 0.045 - 0.590 Consistent with Cardiac Damage > OR = 0.600 Critical Value Not every elevated troponin is indicative of UT. These values should be used with clinical judgement in examining the patient's clinical picture for diagnosis. To establish a diagnosis of UT versus myocardial injury, there must be a demonstrated rise and/or fall in the troponin values, in addition to ischemic symptoms, EKG changes, new regional wall motion abnormality, and/or angiographical evidence. PLEASE NOTE: REFERENCE RANGES EDITED 17 Performed By: #### L500.2500, L501.4010, L501.5200 #### [facility] [address] [facility] [place], [address] MAGNESIUM Collected: 02/08/2018 Status: F Source: [place] 11:25 AM [facility] [place] [facility] TYPE CODE TESTS RESULT OUT OF RANGE REFERENCE UNITS LAB L501.5200 1.6-2.6 mg/dL Normal MG 1.8 Performed By: #### L500.2500, L501.4010, L501.5200 #### [facility] [address] [place], [address] BEDSIDE GLUCOSE Collected: 02/08/2018 Status: F Source: [place] 11:23 AM [facility] [place] [facility] TYPE CODE TESTS RESULT OUT OF REFERENCE UNITS RANGE LAB L501.080 70-110 mg/dL High BEDSIDE GLU 220 Result Comment: MANAGEMENT OF PATIENT CARE PER NURSING PROTOCOL Performed By: #### L501.080 #### [facility] Point of Care [address] [facility] [place] [address] CHEST 1 VIEW Observed: 02/08/2018 Status: F Source: [place] 11:12 AM [facility] Imaging Services [address] [place] [address] Chest 1 View MR#: [id number] Acct: [id number] Name: MICKY ROLDAN Sid Rep #: [id number] : 1950 M 67 From: Jesus Alberto Blair MD PCP: Ellis De Luna MD Status: REG ER Study: Chest 1 View Date of Exam: 02/08/18 Exam# [id number] Ordering Dr: Erika Jacob MD STUDY: X-RAY CHEST REASON FOR EXAM: Male, 67 years old. Dizziness. TECHNIQUE: Single AP portable view of the chest. COMPARISON: Comparison is made with prior study dated August 01, 2017. FINDINGS: EKG electrodes are seen. Stable mild degree of increased lung markings at the lung bases suggestive scarring. This is worse on the left side. Stable blunting of the left costophrenic angle. Sternal cerclage wires and vascular clips are present from a prior sternotomy and coronary artery bypass graft procedure (CABG). Normal mediastinum and nasrin. Normal visualized pulmonary arteries. There is atherosclerotic calcification of the aortic arch with tortuosity. There are degenerative changes of the visualized thoracic spine. Normal visualized ribs, clavicles, and shoulders. There is no demonstrated abnormality of the visualized soft tissue structures of the upper abdomen. RAD/Chest 1 View IMPRESSION: Stable increased markings at the lung bases slightly worse on the left side with blunting of the left costophrenic angle. Electronically Signed: Jesus Alberto Blair MD at 12:16 EST Tel [phone], Service support , CC: Ellis De Luna MD; Erika Jacob MD Associate Designer: Signed BRAIN/HEAD WITHOUT Observed: 02/08/2018 Status: F Source: [place] CONTRAST 11:12 AM [facility] [place] [facility] Imaging Services [address] [place] [address] Brain/Head without Contrast MR#: [id number] Acct: [id number] Name: MICKY ROLDAN Rep #: [id number] : 1950 M 67 From: Jesus Alberto Blair MD PCP: Ellis De Luna MD Status: REG ER Study: Brain/Head without Contrast Date of Exam: 02/08/18 Exam# [id number] Ordering Dr: Erika Jacob MD STUDY: CT BRAIN WITHOUT CONTRAST REASON FOR EXAM: Male, 67 years old. Dizziness. Right arm numbness. RADIATION DOSAGE (If Supplied By Facility): CTDIvol = ( 44.99 ) mGy, DLP = ( 812.98 ) mGycm TECHNIQUE: Transaxial CT imaging of the brain was performed without administration of intravenous contrast material. Individualized dose optimization techniques were used for this CT. COMPARISON: Comparison is made with prior study dated August 01, 2017. FINDINGS: Normal soft tissue structures. Normal calvarium. There is mild cerebral atrophy with widening of the extra- axial spaces and ventricular dilatation. There are areas of decreased attenuation within the white matter tracts of the supratentorial brain, consistent with microvascular disease changes. Stable focal area of Ancef malacia in the posterior left parietal occipital lobe. Normal basal ganglia and thalami. Normal brainstem. Normal cerebellum. There is no intracranial hemorrhage. There are no findings of an acute ischemic infarction. Atherosclerotic calcification of the vertebral arteries and cavernous portions of the internal carotid arteries bilaterally. Normal visualized paranasal sinuses. CT/Brain/Head without Contrast IMPRESSION: Chronic involutional changes of the brain. Electronically Signed: Jesus Alberto Blair MD at 12:17 EST Tel [phone], Service support , CC: Ellis De Luna MD; Erika Jacob MD Associate Designer: Signed CT CHEST WO IVCON Observed: 02/08/2018 Status: F Source: [place] 9:33 AM [facility] REPOSITORY * * *Final Report* * * DATE OF EXAM: Feb 08 2018 9:33AM [facility] 0541 - CT CHEST WO IVCON / PROCEDURE REASON: multiple diagnoses * * * * Physician Interpretation * * * * EXAMINATION: CHEST CT WITHOUT CONTRAST CLINICAL HISTORY: Lung nodules Multiple lung nodules Technique: Spiral CT acquisition of the chest from the thoracic inlet to the upper abdomen without contrast. MQ: CTCWOR_4 CT Dose-Length Product: 380 mGy*cm CT Dose Reduction Employed: Automated exposure control(AEC) and iterative recon Comparison: CT chest on 09/29/2016 RESULT: Limitations: None. Lines, tubes, and devices: None. Lung parenchyma and pleura: The central airways are patent. There is a stable 4 mm solid nodule in the left upper lobe, series 4 image 57. The previously mentioned 2 mm nodule in the right upper lobe has resolved. No new or enlarging nodules identified. Interval improvement of bandlike opacities at the lung bases. No new consolidations. No pleural effusions or pneumothorax. Thoracic inlet, heart, and mediastinum: The visualized thyroid gland appears unremarkable. No lymphadenopathy in the supraclavicular fossae or axillae. Interval mild increase in size of multiple centimeter/subcentimeter in short axis mediastinal lymph nodes. The thoracic aorta and main pulmonary artery are normal in caliber. The cardiac chambers are slightly prominent compared to prior study. Linear and punctate coronary artery atherosclerotic calcifications are noted, although the study is not optimized for coronary assessment. No pericardial effusion or thickening. Bones and soft tissues: No destructive bone lesion. Interval median sternotomy. There are degenerative changes in the spine. Chest wall soft tissue is unremarkable. Upper abdomen: Limited study through the upper abdomen demonstrates mild hepatic steatosis; otherwise no significant abnormalities. IMPRESSION: Stable 4 mm nodule in the left upper lobe. Interval improvement of bandlike opacities at the lung bases. Borderline cardiomegaly. Interval mild increase in size of multiple mediastinal lymph nodes. Associate Designer: JARED Transcribe Date/Time: Feb 11 2018 1:17P Dictated by : DINA VASQUEZ MD This examination was interpreted and the report reviewed and electronically signed by: DINA VASQUEZ MD on Feb 11 2018 5:34PM EST [id number] PROGRESS Observed: 01/25/2018 Status: COMPLETED Source: [place] 9:25 AM [facility] REPOSITORY HNO ID: [id number] Author: Ellis De Luna Service: (none) Author Type: Physician Type: Progress Notes Filed: 01/25/2018 1:15 PM Note Text: Chief Complaint Patient presents with: Recheck HPI Micky Roldan is a 67 year old male who presents here today for Chronic Medical Conditions.. Patient with Hx of DM type 2, CAD, hypothyroidism, HTN, Hyperlipidemia, lung nodules as well as those reviewed and addressed below. Has been doing ok. Tired with recent change in job location and more hrs. With the extended hrs feet have been sore and has a few blisters. Has noted some redness on the left foot sole near the big toe. Still having some problems with reading not making sense but 80% better than it had been after the CVA. Past medical history, appointments, medications, allergies reviewed. Previous Medical History PAST MEDICAL HISTORY Diagnosis Date - ACNE NEC 09/26/2007 - Acquired hypothyroidism 02/20/2015 - Coronary artery disease due to lipid rich plaque 02/25/[address] Milton - DISEASES OF NAIL NEC 09/26/2007 - Essential hypertension with goal blood pressure less than 130/85 09/02/2015 - FOLLICULITIS///HAIR DISEASES NEC 09/26/2007 - H/O balance disorder chronic due to frequent ear infections in the past. - History of UT (myocardial infarction) 02/25/201701/2017 - Idiopathic peripheral neuropathy - Ischemic cerebrovascular accident (CVA) ([facility]) 08/02/201707/2017: left temporal - Mixed hyperlipidemia 02/20/2015 - Multiple lung nodules 09/30/[address] 09/2016, repeat CT 03/2017 - NEVUS///BENIGN OLEGARIO SKIN TRUNK 09/26/2007 - Other psoriasis 09/26/2007 - Other specified idiopathic peripheral neuropathy - PRURITIC DISORDER NOS 09/26/2007 - PVC (premature ventricular contraction) - PYODERMA NOS 09/26/2007 - Right-sided cerebrovascular accident (CVA) ([facility]) 02/09/2017 MRI at [place] 01/2017 showed right cortical stroke. - S/P CABG x 3 02/25/2017 01/22/2017 Following [facility]. - SEBORRHEIC DERMATITIS NOS 09/26/2007 - SEBORRHEIC KERATOSIS NOS 12/16/2007 - Shoulder pain 05/05/2013 - SOLAR LENGINES////DYSCHROMIA OTHER 12/16/2007 - Type II or unspecified type diabetes mellitus without mention of complication, not stated as uncontrolled - Uncontrolled type 2 diabetes mellitus with diabetic neuropathy, with long-term current use of insulin ([facility]) 06/04/2017 - Unspecified hypothyroidism Previous Surgical History PAST SURGICAL HISTORY Procedure Laterality Date - 2D ECHO (EXEP) 01/2017 EF=50-55%, with nl function - 2D ECHO (EXEP) 08/02/2017 EF=53%, mild infante dysf, mild UT and TI - NONE - PAST SURGICAL HISTORY OF 01/22/2017 CABG x3 Family History FAMILY HISTORY Problem Relation Age of Onset - other (toxic shock) Mother - None Father - Thyroid Sister Patient Allergies ALLERGIES Allergen Reactions - Crestor [Rosuvastat* Myalgia - Lanolin Itching - Lipitor [Atorvastat* Myalgia Current Medications Current Outpatient Prescriptions on File Prior to Visit: levothyroxine (SYNTHROID) 125 mcg tablet TAKE 1 TABLET BY MOUTH ONCE DAILY. TAKE ON EMPTY STOMACH. FOR THYROID. clopidogrel (PLAVIX) 75 mg tablet TAKE 1 TABLET BY MOUTH EVERY DAY blood sugar diagnostic (FREESTYLE LITE STRIPS) test strip Test blood sugar 3-4 times daily Dx E11.40 on insulin insulin 75/25 lispro protamine/lispro units/mL (HUMALOG MIX 75-25 KWIKPEN) 100 unit/mL (75-25) inpn Inject 28 Units subcutaneously twice daily with meals. metFORMIN (GLUCOPHAGE) 500 mg tablet Take 1 tablet by mouth twice daily. metoprolol tartrate, short acting, (LOPRESSOR) 25 mg tablet Take 0.5 tablets by mouth twice daily. insulin needles, DISPOSABLE, (PEN NEEDLE) 31 gauge x 5/16 ndle Use with 75/25 twice daily losartan (COZAAR) 25 mg tablet Take 1 tablet by mouth once daily. Per Dr. Vance, Cardiology acetaminophen (TYLENOL) 325 mg tablet Take 2 tablets by mouth every 6 hours as needed for Pain. MULTIVIT-MINERALS/FERROUS FUM (MULTI VITAMIN ORAL) Take by mouth. TURMERIC (CURCUMIN MISC) No current facility-administered medications on file prior to visit. Social History Social History Marital status: Spouse name: Years of education: Number of children: Social History Main Topics Smoking status: Former Smoker Packs/day: 0.00 Years: 0.00 Quit date: 12/20/1997 Smokeless tobacco: Former User Types: Snuff, Chew Alcohol use: No Drug use: No Review of Symptoms REVIEW OF SYSTEMS GENERAL: No weight loss, malaise or fevers NECK: Negative for lumps, goiter, pain and significant neck swelling RESPIRATORY: Negative for cough, hemoptysis, wheezing, COPD, dyspnea or shortness of breath CARDIOVASCULAR: Negative for chest pain, hypertension, CHF or changes in his typical palpitations. Gets some swelling towards the end of the day on both sides. Typical in Am swelling is gone. GI: No nausea, vomiting, or diarrhea and No heartburn or reflux symptoms : No history of dysuria or blood ENDOCRINE: no symptoms of low Blood sugars or very rare. Since last visit FBS range 92-180 (on two occasions was in the low to mid 200's), Post meal BS's range 130-150 (once was in low 300's) NEURO: No history of headaches, syncope, paralysis, seizures or tremors. Has noticed some dizziness off and on. Seems to be more common on days he may be constipated. EXAM: BP 132/64 Pulse 74 Resp 16 Wt 108.9 kg (240 lb) BMI 32.41 kg/m? General Appearance: Well appearing, alert, in no acute distress, well-hydrated, well nourished. and Obese. Eyes: Anicteric sclera. Pupils are equally round and reactive to light. Extraocular movements are intact. . Oropharynx: Lips, mucosa, and tongue normal, teeth and gums normal, oropharynx normal. Neck: Supple, no adenopathy; thyroid symmetric, normal size, no bruits. Lungs: lungs clear to auscultation. No wheezing, rhonchi, rales. Heart: RRR without murmur, gallop, or rubs. No ectopy. Abdomen: Normal abdominal exam, Abdomen soft, non-tender. Bowel sounds normal. No masses, organomegaly. Extremities: No deformities, edema, skin discoloration,. Musculoskeletal: Muscular strength intact, No joint swelling, deformity, or tenderness. Peripheral Pulses: Normal. Neurologic: Gait normal. Reflexes normal and symmetric. Sensation to light touch and crainal nerves 2-12intact.. Skin: Left foot no open draining sores and no signs of infection. Health Maintenance List HBA1C due on 11/27/2017 DIABETES MED ADHERENCE due on 02/19/2018 PNEUMOVAX AGE 65 AND OVER WITH 5YR LOOKBACK(1) due on 04/26/2018 URINE ALBUMIN:CREATININE RATIO due on 06/02/2018 LDL CHOLESTEROL due on 06/02/2018 DIABETIC FOOT EXAM due on 07/01/2018 FECAL OCCULT BLOOD due on 08/27/2018 DILATED RETINAL EXAM due on 08/31/2018 ANNUAL PCP TEAM CHRONIC DISEASE VISIT due on 09/07/2018 BP CONTROLLED (<130/80) due on 09/07/2018 DTAP,TDAP,TD(3 - Td) due on 07/04/2027 PROSTATE CANCER SCREENING DISCUSSION Completed ADULT PREVNAR-13 Completed HEPATITIS C SCREENING Completed Data reviewed A/P ASSESSMENT/PLAN: 1. Uncontrolled type 2 diabetes mellitus with diabetic neuropathy, with long-term current use of insulin (HCC) - ICD9: 250.62, 357.2, V58.67, ICD10: E11.40, Z79.4, E11.65 (primary diagnosis) - A1c pending. - Will make adjustments if needed. - Continue current medications - Encouraged regular aerobic exercise and weight loss - Continue daily plavix - BP goal of <130/80 - LDL goal of <100 2. Diabetic eye exam (HCC) - ICD9: V72.0, 250.00, ICD10: Z01.00, E11.9 - Up to date 3. Essential hypertension with goal blood pressure less than 130/85 - ICD9: 401.9, ICD10: I10 - good control - Continue current medication(s) - Recommended regular aerobic exercise. - Recommend home blood pressure monitoring, to bring results in on next visit - Goal of BP <130/80 - advised to improve water hydration to cut down on dizziness and constipation. 4. Mixed hyperlipidemia - ICD9: 272.2, ICD10: E78.2 - to be determined upon return of lab results - Continue current medication. - Encouraged following a low fat, low cholesterol diet. - Discussed the benefits of regular aerobic exercise and weight loss. - Encouraged following a low carbohydrate, healthy oil intake diet. 5. Acquired hypothyroidism - ICD9: 244.9, ICD10: E03.9 - Instructed patient on importance of taking on an empty stomach either first thing in the morning or at bedtime. - continue current dose of Synthroid 0.125 mg - TSH pending 6. Iron deficiency anemia, unspecified iron deficiency anemia type - ICD9: 280.9, ICD10: D50.9 - Awaiting CBC - CBC + DIFF 7. Coronary artery disease due to lipid rich plaque - ICD9: 414.00, 414.3, ICD10: I25.10, I25.83 - Clinically stable no changes. - Cont meds and cardio f/u - METOPROLOL TARTRATE 25 MG TABLET 8. PVC (premature ventricular contraction) - ICD9: 427.69, ICD10: I49.3 - Cont beta kiah. - No clinical issues 9. Idiopathic peripheral neuropathy - ICD9: 356.9, ICD10: G60.9 - Stable at this time. 10. History of CVA (cerebrovascular accident) - ICD9: V12.54, ICD10: Z86.73 - Stable - Cont to maximize BP and lipid control - Cont meds and anticoagulation with plavix. 11. History of ischemic cerebrovascular accident (CVA) with residual deficit - ICD9: 438.9, ICD10: I69.30 - See #10 12. Multiple lung nodules - ICD9: 793.19, ICD10: R91.8 - Will have PSR call to get patient set up for CT of chest to f/u on lung nodules that was ordered back in August. Signed Prescriptions Disp Refills metFORMIN (GLUCOPHAGE) 500 mg tablet 60 tablet 5 Sig: Take 1 tablet by mouth twice daily. DANAY: No metoprolol tartrate, short acting, (LOPRESSOR) 25 mg tablet 30 tablet 5 Sig: Take 0.5 tablets by mouth twice daily. DANAY: No losartan (COZAAR) 25 mg tablet Sig: Take 1 tablet by mouth once daily. DANAY: No F/u 4 months routine sooner if issues Ellis De Luna MD CNOV Observed: 01/25/2018 Status: COMPLETED Source: [place] 9:00 AM [facility] REPOSITORY [facility] MICKY ROLDAN ([id number]) 1950 M Date Time Provider Department 01/25/18 9:00 AM ELLIS DE LUNA FAMPWS During your visit today, we recorded the following information about you: Pulse Respiration Blood pressure Weight 74/minute 16/minute 132/64 108.9 kg Ellis De Luna MD 01/25/2018 1:15 PM Signed Chief Complaint Patient presents with: Recheck HPI Micky Lau Yuli is a 67 year old male who presents here today for Chronic Medical Conditions.. Patient with Hx of DM type 2, CAD, hypothyroidism, HTN, Hyperlipidemia, lung nodules as well as those reviewed and addressed below. Has been doing ok. Tired with recent change in job location and more hrs. With the extended hrs feet have been sore and has a few blisters. Has noted some redness on the left foot sole near the big toe. Still having some problems with reading not making sense but 80% better than it had been after the CVA. Past medical history, appointments, medications, allergies reviewed. Previous Medical History PAST MEDICAL HISTORY Diagnosis Date - ACNE NEC 09/26/2007 - Acquired hypothyroidism 02/20/2015 - Coronary artery disease due to lipid rich plaque 02/25/[address] Milton - DISEASES OF NAIL NEC 09/26/2007 - Essential hypertension with goal blood pressure less than 130/85 09/02/2015 - FOLLICULITIS///HAIR DISEASES NEC 09/26/2007 - H/O balance disorder chronic due to frequent ear infections in the past. - History of UT (myocardial infarction) 02/25/201701/2017 - Idiopathic peripheral neuropathy - Ischemic cerebrovascular accident (CVA) ([facility]) 08/02/201707/2017: left temporal - Mixed hyperlipidemia 02/20/2015 - Multiple lung nodules 09/30/[address] 09/2016, repeat CT 03/2017 - NEVUS///BENIGN OLEGARIO SKIN TRUNK 09/26/2007 - Other psoriasis 09/26/2007 - Other specified idiopathic peripheral neuropathy - PRURITIC DISORDER NOS 09/26/2007 - PVC (premature ventricular contraction) - PYODERMA NOS 09/26/2007 - Right-sided cerebrovascular accident (CVA) ([facility]) 02/09/2017 MRI at [place] 01/2017 showed right cortical stroke. - S/P CABG x 3 02/25/2017 01/22/2017 Following [facility]. - SEBORRHEIC DERMATITIS NOS 09/26/2007 - SEBORRHEIC KERATOSIS NOS 12/16/2007 - Shoulder pain 05/05/2013 - SOLAR LENGINES////DYSCHROMIA OTHER 12/16/2007 - Type II or unspecified type diabetes mellitus without mention of complication, not stated as uncontrolled - Uncontrolled type 2 diabetes mellitus with diabetic neuropathy, with long-term current use of insulin ([facility]) 06/04/2017 - Unspecified hypothyroidism Previous Surgical History PAST SURGICAL HISTORY Procedure Laterality Date - 2D ECHO (EXEP) 01/2017 EF=50-55%, with nl function - 2D ECHO (EXEP) 08/02/2017 EF=53%, mild infante dysf, mild UT and TI - NONE - PAST SURGICAL HISTORY OF 01/22/2017 CABG x3 Family History FAMILY HISTORY Problem Relation Age of Onset - other (toxic shock) Mother - None Father - Thyroid Sister Patient Allergies ALLERGIES Allergen Reactions - Crestor [Rosuvastat* Myalgia - Lanolin Itching - Lipitor [Atorvastat* Myalgia Current Medications Current Outpatient Prescriptions on File Prior to Visit: levothyroxine (SYNTHROID) 125 mcg tablet TAKE 1 TABLET BY MOUTH ONCE DAILY. TAKE ON EMPTY STOMACH. FOR THYROID. clopidogrel (PLAVIX) 75 mg tablet TAKE 1 TABLET BY MOUTH EVERY DAY blood sugar diagnostic (FREESTYLE LITE STRIPS) test strip Test blood sugar 3-4 times daily Dx E11.40 on insulin insulin 75/25 lispro protamine/lispro units/mL (HUMALOG MIX 75-25 KWIKPEN) 100 unit/mL (75-25) inpn Inject 28 Units subcutaneously twice daily with meals. metFORMIN (GLUCOPHAGE) 500 mg tablet Take 1 tablet by mouth twice daily. metoprolol tartrate, short acting, (LOPRESSOR) 25 mg tablet Take 0.5 tablets by mouth twice daily. insulin needles, DISPOSABLE, (PEN NEEDLE) 31 gauge x 5/16 ndle Use with 75/25 twice daily losartan (COZAAR) 25 mg tablet Take 1 tablet by mouth once daily. Per Dr. Vance, Cardiology acetaminophen (TYLENOL) 325 mg tablet Take 2 tablets by mouth every 6 hours as needed for Pain. MULTIVIT-MINERALS/FERROUS FUM (MULTI VITAMIN ORAL) Take by mouth. TURMERIC (CURCUMIN MISC) No current facility-administered medications on file prior to visit. Social History Social History Marital status: Spouse name: Years of education: Number of children: Social History Main Topics Smoking status: Former Smoker Packs/day: 0.00 Years: 0.00 Quit date: 12/20/1997 Smokeless tobacco: Former User Types: Snuff, Chew Alcohol use: No Drug use: No Review of Symptoms REVIEW OF SYSTEMS GENERAL: No weight loss, malaise or fevers NECK: Negative for lumps, goiter, pain and significant neck swelling RESPIRATORY: Negative for cough, hemoptysis, wheezing, COPD, dyspnea or shortness of breath CARDIOVASCULAR: Negative for chest pain, hypertension, CHF or changes in his typical palpitations. Gets some swelling towards the end of the day on both sides. Typical in Am swelling is gone. GI: No nausea, vomiting, or diarrhea and No heartburn or reflux symptoms : No history of dysuria or blood ENDOCRINE: no symptoms of low Blood sugars or very rare. Since last visit FBS range 92-180 (on two occasions was in the low to mid 200's), Post meal BS's range 130-150 (once was in low 300's) NEURO: No history of headaches, syncope, paralysis, seizures or tremors. Has noticed some dizziness off and on. Seems to be more common on days he may be constipated. EXAM: BP 132/64 Pulse 74 Resp 16 Wt 108.9 kg (240 lb) BMI 32.41 kg/m? General Appearance: Well appearing, alert, in no acute distress, well-hydrated, well nourished. and Obese. Eyes: Anicteric sclera. Pupils are equally round and reactive to light. Extraocular movements are intact. . Oropharynx: Lips, mucosa, and tongue normal, teeth and gums normal, oropharynx normal. Neck: Supple, no adenopathy; thyroid symmetric, normal size, no bruits. Lungs: lungs clear to auscultation. No wheezing, rhonchi, rales. Heart: RRR without murmur, gallop, or rubs. No ectopy. Abdomen: Normal abdominal exam, Abdomen soft, non-tender. Bowel sounds normal. No masses, organomegaly. Extremities: No deformities, edema, skin discoloration,. Musculoskeletal: Muscular strength intact, No joint swelling, deformity, or tenderness. Peripheral Pulses: Normal. Neurologic: Gait normal. Reflexes normal and symmetric. Sensation to light touch and crainal nerves 2-12intact.. Skin: Left foot no open draining sores and no signs of infection. Health Maintenance List HBA1C due on 11/27/2017 DIABETES MED ADHERENCE due on 02/19/2018 PNEUMOVAX AGE 65 AND OVER WITH 5YR LOOKBACK(1) due on 04/26/2018 URINE ALBUMIN:CREATININE RATIO due on 06/02/2018 LDL CHOLESTEROL due on 06/02/2018 DIABETIC FOOT EXAM due on 07/01/2018 FECAL OCCULT BLOOD due on 08/27/2018 DILATED RETINAL EXAM due on 08/31/2018 ANNUAL PCP TEAM CHRONIC DISEASE VISIT due on 09/07/2018 BP CONTROLLED (<130/80) due on 09/07/2018 DTAP,TDAP,TD(3 - Td) due on 07/04/2027 PROSTATE CANCER SCREENING DISCUSSION Completed ADULT PREVNAR-13 Completed HEPATITIS C SCREENING Completed Data reviewed A/P ASSESSMENT/PLAN: 1. Uncontrolled type 2 diabetes mellitus with diabetic neuropathy, with long-term current use of insulin (HCC) - ICD9: 250.62, 357.2, V58.67, ICD10: E11.40, Z79.4, E11.65 (primary diagnosis) - A1c pending. - Will make adjustments if needed. - Continue current medications - Encouraged regular aerobic exercise and weight loss - Continue daily plavix - BP goal of <130/80 - LDL goal of <100 2. Diabetic eye exam (HCC) - ICD9: V72.0, 250.00, ICD10: Z01.00, E11.9 - Up to date 3. Essential hypertension with goal blood pressure less than 130/85 - ICD9: 401.9, ICD10: I10 - good control - Continue current medication(s) - Recommended regular aerobic exercise. - Recommend home blood pressure monitoring, to bring results in on next visit - Goal of BP <130/80 - advised to improve water hydration to cut down on dizziness and constipation. 4. Mixed hyperlipidemia - ICD9: 272.2, ICD10: E78.2 - to be determined upon return of lab results - Continue current medication. - Encouraged following a low fat, low cholesterol diet. - Discussed the benefits of regular aerobic exercise and weight loss. - Encouraged following a low carbohydrate, healthy oil intake diet. 5. Acquired hypothyroidism - ICD9: 244.9, ICD10: E03.9 - Instructed patient on importance of taking on an empty stomach either first thing in the morning or at bedtime. - continue current dose of Synthroid 0.125 mg - TSH pending 6. Iron deficiency anemia, unspecified iron deficiency anemia type - ICD9: 280.9, ICD10: D50.9 - Awaiting CBC - CBC + DIFF 7. Coronary artery disease due to lipid rich plaque - ICD9: 414.00, 414.3, ICD10: I25.10, I25.83 - Clinically stable no changes. - Cont meds and cardio f/u - METOPROLOL TARTRATE 25 MG TABLET 8. PVC (premature ventricular contraction) - ICD9: 427.69, ICD10: I49.3 - Cont beta kiah. - No clinical issues 9. Idiopathic peripheral neuropathy - ICD9: 356.9, ICD10: G60.9 - Stable at this time. 10. History of CVA (cerebrovascular accident) - ICD9: V12.54, ICD10: Z86.73 - Stable - Cont to maximize BP and lipid control - Cont meds and anticoagulation with plavix. 11. History of ischemic cerebrovascular accident (CVA) with residual deficit - ICD9: 438.9, ICD10: I69.30 - See #10 12. Multiple lung nodules - ICD9: 793.19, ICD10: R91.8 - Will have PSR call to get patient set up for CT of chest to f/u on lung nodules that was ordered back in August. Signed Prescriptions Disp Refills metFORMIN (GLUCOPHAGE) 500 mg tablet 60 tablet 5 Sig: Take 1 tablet by mouth twice daily. DANAY: No metoprolol tartrate, short acting, (LOPRESSOR) 25 mg tablet 30 tablet 5 Sig: Take 0.5 tablets by mouth twice daily. DANAY: No losartan (COZAAR) 25 mg tablet Sig: Take 1 tablet by mouth once daily. DANAY: No F/u 4 months routine sooner if issues Ellis De Luna MD Referring Provider: ELLIS DE LUNA [[id number]] Allergies As of Date: 01/25/2018 Noted Allergy Reaction CRESTOR (ROSUVASTATIN CALCIUM) 09/07/2017 17 - Myalgia LANOLIN 02/15/2008 9 - Itching LIPITOR (ATORVASTATIN CALCIUM) 09/07/2017 17 - Myalgia Date Reviewed: 01/25/2018 Reviewed by: Ellis De Luna - Fully Assessed Reason for Visit: Recheck [92] Primary Visit Diagnosis:Uncontrolled type 2 diabetes mellitus with diabetic neuropathy, with long-term current use of insulin (HCC) [E11.40, Z79.4, E11.65] Other Visit Diagnoses:Diabetic eye exam (HCC) [Z01.00, E11.9] Essential hypertension with goal blood pressure less than 130/85 [I10] Mixed hyperlipidemia [E78.2] Acquired hypothyroidism [E03.9] Iron deficiency anemia, unspecified iron deficiency anemia type [D50.9] Coronary artery disease due to lipid rich plaque [I25.10, I25.83] PVC (premature ventricular contraction) [I49.3] Idiopathic peripheral neuropathy [G60.9] History of CVA (cerebrovascular accident) [Z86.73] History of ischemic cerebrovascular accident (CVA) with residual deficit [I69.30] Multiple lung nodules [R91.8] Order(s):metFORMIN (GLUCOPHAGE) 500 mg tabletTake 1 tablet by mouth twice daily.Disp: 60 tabletRfl: 5 metoprolol tartrate, short acting, (LOPRESSOR) 25 mg tabletTake 0.5 tablets by mouth twice daily.Disp: 30 tabletRfl: 5 losartan (COZAAR) 25 mg tabletTake 1 tablet by mouth once daily.Disp: Rfl: CBC + DIFF [SQCBCDIF] Order #: [id number] FUTURE Prescriptions as of 01/25/2018 Sig: METFORMIN 500 MG TABLET Take 1 tablet by mouth twice * METOPROLOL TARTRATE 25 MG TAB* Take 0.5 tablets by mouth twi* LOSARTAN 25 MG TABLET Take 1 tablet by mouth once d* LEVOTHYROXINE 125 MCG TABLET TAKE 1 TABLET BY MOUTH ONCE D* CLOPIDOGREL 75 MG TABLET TAKE 1 TABLET BY MOUTH EVERY * BLOOD SUGAR DIAGNOSTIC STRIPS Test blood sugar 3-4 times da* INSULIN LISPRO AND LISPRO PROT * Inject 28 Units subcutaneousl* PEN NEEDLE, DIABETIC 31 GAUGE* Use with 75/25 twice daily ACETAMINOPHEN 325 MG TABLET Take 2 tablets by mouth every* MULTI VITAMIN ORAL Take by mouth. CURCUMIN MISC Medication notes this encounter COMPOUNDED PRESCRIPTION >> Veronica Coy Ma 01/25/2018 9:01 AM >> VERONICA COY MA Jan 25, 2018 9:01 AM Not taking More... Problem List As Of Date 01/25/2018 Noted Resolved Idiopathic peripheral neuropathy [G60.9] Priority: A Pyoderma, unspecified [L08.0] INVALID FOR* Priority: C Other acne [L70.8] INVALID FOR* Priority: C Seborrheic dermatitis, unspecified [L21.9] INVALID FOR* Priority: C Other psoriasis [L40.8] INVALID FOR* Priority: C XEROSIS///SEBACEOUS GLAND DIS NEC [L73.8] INVALID FOR* Priority: C Other specified disease of nail [L60.8] INVALID FOR* Priority: C Other seborrheic keratosis [L82.1] INVALID FOR* Priority: C H/O balance disorder [Z87.898] Priority: B More... PVC (premature ventricular contraction) [I49.3] Priority: A Diabetic eye exam (HCC) [Z01.00, E11.9] INVALID FOR* Priority: A More... Dyslipidemia [E78.5] INVALID FOR*02/19/2014 Well adult exam [Z00.00] INVALID FOR* Priority: D More... Colon cancer screening [Z12.11] INVALID FOR* Acquired hypothyroidism [E03.9] INVALID FOR* Priority: A Mixed hyperlipidemia [E78.2] INVALID FOR* Priority: A Prostate cancer screening [Z12.5] INVALID FOR* Uncontrolled type 2 diabetes mellitus without c*INVALID FOR*06/04/2017 Priority: A Essential hypertension with goal blood pressure*INVALID FOR* Priority: A Ex-smoker [Z87.891] INVALID FOR* Priority: C More... Plantar fasciitis, left [M72.2] INVALID FOR* Priority: M Multiple lung nodules [R91.8] INVALID FOR* Priority: B More... History of CVA (cerebrovascular accident) [Z86.*INVALID FOR* Priority: A More... History of UT (myocardial infarction) [I25.2] INVALID FOR* Priority: A More... Coronary artery disease due to lipid rich plaqu*INVALID FOR* Priority: A More... 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 Uncontrolled type 2 diabetes mellitus with diab*INVALID FOR* Priority: A History of ischemic cerebrovascular accident (C*INVALID FOR* Priority: A More... Iron deficiency anemia [D50.9] INVALID FOR* Prescriptions ordered this encounter Disp Refills Start End METFORMIN 500 MG TABLET 60 t* 5 01/25/2018 Route: ORAL Sig: Take 1 tablet by mouth twice daily. METOPROLOL TARTRATE 25 MG TABLET 30 t* 5 01/25/2018 Route: ORAL Sig: Take 0.5 tablets by mouth twice daily. LOSARTAN 25 MG TABLET 01/25/2018 Class: Med Update Route: ORAL Sig: Take 1 tablet by mouth once daily. Medications Discontinued During This Encounter Shfbfhzjimp-Loballexu-Xkh C-Mn (GLUC* 0 09/08/2016 01/25/2018 Class: Med Update Route: ORAL Sig: Take 1 capsule by mouth three times daily. Disc: Discontinued by Patient COMPOUNDED PRESCRIPTION 01/25/2018 Class: Historical Med Route: ORAL Sig: Take 1 capsule by mouth twice daily. Glucosamine 1500mg/ Chondroitin 800mg/MSM 750mg/ Vit D3 - 2000IU Disc: Discontinued by Patient losartan (COZAAR) 25 mg tablet 03/23/2017 01/25/2018 Class: Med Update Route: ORAL Sig: Take 1 tablet by mouth once daily. Per Dr. Vance, Cardiology Disc: Adjust Sig - Block E-Cancel metFORMIN (GLUCOPHAGE) 500 mg tablet 60 t* 5 07/01/2017 01/25/2018 Route: ORAL Sig: Take 1 tablet by mouth twice daily. Disc: Reason for discontinue is not on file. metoprolol tartrate, short acting, (* 30 t* 5 06/02/2017 01/25/2018 Class: Med Update Route: ORAL Sig: Take 0.5 tablets by mouth twice daily. Disc: Reason for discontinue is not on file. Disposition: Return in about 4 months (around 05/25/2018) for routine. Follow-up and Disposition History Recorded Encounter Status:Closed by ELLIS DE LUNA on 01/25/18 CBC AND DIFFERENTIAL Collected: 01/25/2018 Status: F Source: [place] 9:00 [facility] REPOS[facility] TYPE CODE TESTS RESULT OUT OF REFERENCE UNITS RANGE LAB WBC 3.70-11.00 k/uL WBC 5.85 LAB RBC 4.20-6.00 m/uL RBC 4.28 LAB HGB 13.0-17.0 g/dL Low Hemoglobin 11.9 LAB HCT 39.0-51.0 % Low Hematocrit 38.2 LAB MCV 80.0-100.0 fL MCV 89.3 LAB MCH 26.0-34.0 pG MCH 27.8 LAB MCHC 30.5-36.0 g/dL MCHC 31.2 LAB RDWCV 11.5-15.0 % RDW-CV High 15.6 LAB PLTCT 150-400 k/uL Platelet Count 202 LAB MPV 9.0-12.7 fL MPV 12.0 LAB ANEUT % Neut% 63.2 LAB AANEUT 1.45-7.50 k/uL Abs Neut 3.69 LAB ALYMP % Lymph% 23.9 LAB AALYMP 1.00-4.00 k/uL Abs Lymph 1.40 LAB AMONO % Brown% 9.7 LAB AAMONO <0.87 k/uL Abs Brown 0.57 LAB AEOS % Eosin% 2.7 LAB AAEOS <0.46 k/uL Abs Eosin 0.16 LAB ABASO % Baso% 0.5 LAB AABASO <0.11 k/uL Abs Baso 0.03 LAB AUNRBC 0 /100 WBC NRBCs 0.0 LAB ABNRBC <0.01 k/uL Absolute nRBC <0.01 LAB DTYP DTYPE Auto Diff Performed By: #### CBCDIF #### [facility] [address] [id number] HEMOGLOBIN A1C Collected: 01/25/2018 Status: F Source: [place] 8:00 [facility] REPOSITORY TYPE CODE TESTS RESULT OUT OF REFERENCE UNITS RANGE LAB HGBA1C 4.3-5.6 % High Hemoglobin A1c 7.7 LAB HBA0 mg/dL Est. Average Glucose 174 Result Comment: eAG: (Estimated average glucose) is a calculated value from HgbA1c and is health and safety representative of the average blood glucose level in the last 2-3 month period. Performed By: #### HBA1C, HFP, LIPB, TSH #### [facility] [address] [id number] HEPATIC FUNCTN PANEL Collected: 01/25/2018 Status: F Source: [place] 8:00 [facility] REPOSITORY TYPE CODE TESTS RESULT OUT OF REFERENCE UNITS RANGE LAB ALB 3.9-4.9 g/dL Low Albumin 3.8 LAB TBIL 0.2-1.3 mg/dL Bilirubin, Total 0.3 LAB CBIL <0.2 mg/dL Bilirubin,Conjuga <0.2 [place] LAB ALKP 38-113 U/L Alkaline Phosphatase 67 LAB AST 14-40 U/L AST 21 LAB ALT 10-54 U/L ALT 15 LAB TP 6.3-8.0 g/dL Protein, Total 7.8 Performed By: #### HBA1C, HFP, LIPB, TSH #### [facility] [address], [place] [address] LIPID PANEL, BASIC Collected: 01/25/2018 Status: F Source: [place] 8:00 AM [facility] REPOSITORY TYPE CODE TESTS RESULT OUT OF REFERENCE UNITS RANGE LAB CHOL <200 mg/dL Cholesterol 135 Result Comment: <200 mg/dL, Desirable 200-239 mg/dL, Borderline high >239 mg/dL, High LAB TRIGLY <150 mg/dL Triglyceride 78 Result Comment: <150 mg/dL, Normal 150-199 mg/dL, Borderline high 200-499 mg/dL, High >499 mg/dL, Very high LAB HDL >39 mg/dL HDL-Cholesterol Low 37 Result Comment: 40-59 mg/dL, Acceptable >59 mg/dL, High: Negative risk factor for coronary heart disease <40 mg/dL, Low: Positive risk factor for coronary heart disease LAB LDL <100 mg/dL LDL-Cholesterol 82 Result Comment: <100 mg/dL, Optimal 100-129 mg/dL, Near optimal/above optimal 130-159 mg/dL, Borderline high 160-189 mg/dL, High >189 mg/dL, Very high Secondary prevention optimal LDL Cholesterol levels are recommended to be < 70 mg/dL LAB NONHDL <130 mg/dL Non HDL Cholesterol 98 Result Comment: <130 mg/dL, Optimal 130-159 mg/dL, Near optimal/above optimal 160-189 mg/dL, Borderline high 190-219 mg/dL, High >219 mg/dL, Very high Secondary prevention optimal non HDL Cholesterol levels are recommended to be < 100 mg/dL LAB FT hrs Fasting Time 12 LAB VLDL <30 mg/dL VLDL Cholesterol 16 LAB TCHDL <5.10 TC:HDL Ratio 3.65 LAB LDLHDL <2.54 LDL:HDL Ratio 2.22 Result Comment: Reference: 1. National Cholesterol Education Program ATP III Guideline At-A-Glance Quick Desk Reference: National Heart, Lung, and Blood [place]. National Institutes of Health. 2001: NIH Publication No. 01-3305. 2. An International Atherosclerosis Society position paper: global recommendations for the management of dyslipidemia: executive summary, Atherosclerosis. 2014: 232(2):410-413. Performed By: #### HBA1C, HFP, LIPB, TSH #### [facility] [address], [place] [address] TSH Collected: 01/25/2018 Status: F Source: [place] 8:00 AM [facility] REPOSITORY TYPE CODE TESTS RESULT OUT OF RANGE REFERENCE UNITS LAB TSH 0.400-5.500 uU/mL TSH 2.780 Performed By: #### HBA1C, HFP, LIPB, TSH #### [facility] [address] [place], [place] [address] D/C SUMMARY- SP Observed: 10/27/2017 Status: F Source: [place] 11:11 AM [facility] [place] [facility] [address] [place] [address] Fax REHABILITATION SERVICES DISCHARGE SUMMARY MR#: [id number] Acct: [id number] Name: MICKY ROLDAN Rep #: [id number] : 1950 67 From: Humble Martinez M.A., CCC-MOUNTED POLICE Referring Dr.: Stefanie Agarwal MD Status: REG RCR Insurance: [employer] SELF PAY INSURANCE Discharge Summary - Discharged: Discharge: Micky Roldan is discharged from [facility] as of October 27, 2017. He has requested discharge as he stated that his reading skills are returning and he no longer wishes to attend therapy. Insurance complications have delayed therapy until this point and no thearpy visits were completed. A copy of this discharge summary will be sent to his referring physician. Thank you for this referral. <Electronically signed by Humble Martinez M.A., CCC-[employer]> 10/27/17 1111 CC: Stefanie Agarwal MD; Ellis De Luna MD JLB Signed WOUND CTR HISTORY Observed: 10/08/2017 Status: F Source: [place] 2:52 PM [facility] [place] [facility] [address] [place] [address] Wound Ctr History AND Physical 10/06/17 1636 MR#: [id number] Acct: [id number] Name: MICKY ROLDAN Rep #: [id number] : 1950 67 From: Arianna Balbuena MD PCP: Ellis De Luna MD Status: REG RCR Y Location: (1) Open wound of scalp Status: Chronic Current Visit: Yes Code(s): S01.00XA - Unspecified open wound of scalp, initial encounter (2) Diabetes mellitus Status: Chronic Current Visit: Yes Qualifiers: Code(s): E11.9 - Type 2 diabetes mellitus without complications History of Present Illness Date of Service: 10/06/17 Chief Complaint: Posterior Scalp Wound. History of Wound: Mr Roldan is a 67yo who was referred her by [facility] due to non healing traumatic scalp wound. Sustained wound after he fell at work hitting the back of his head. He has had care as stated above at [facility] including 2 corses of Abx. He was however referred here due to non healing. Initial injury was in June 2017. He feels well otherwise and denies chills, fever, headache, nausea or vomitting. Past Medical History Past Medical History: Chronic Problems (Last Updated 03/18/17 @ 10:35 by Jesús Hensley, CORE STRIPPER-C) Open wound of scalp (Chronic) Dizziness (Chronic) Essential (primary) hypertension (Chronic) Atherosclerosis of chitina coronary artery of chitina heart without angina pectoris (Chronic) CABG- THRASHER to LAD, reverse SVG to post lateral, reverse SVG to OM 01/21/2017 Hyperlipidemia (Chronic) Diabetes mellitus (Chronic) Thyroid disorder (Chronic) Surgical History: no surgical history Allergies/Adverse Reactions: Allergies atorvastatin [From Lipitor] Adverse Reaction (Mild, Verified 08/01/17 10:03) mylgia lower leg pain lanolin Adverse Reaction (Unknown, Verified 08/01/17 10:03) Unknown Home Medications: Ambulatory Orders Medication Instructions Recorded Levothyroxine [Synthroid] 125 mcg PO DAILY 01/19/17 - Family History Sibling Family History: Family History (Last Reviewed 06/28/17 @ 09:08 by Stephany Lugo) Sister CAD (coronary artery disease) Diabetes Brother CAD (coronary artery disease) Heart Disease - [place] Maternal Family History: Family History (Last Reviewed 06/28/17 @ 09:08 by Stephany Lugo) Sister CAD (coronary artery disease) Diabetes Brother CAD (coronary artery disease) No pertinent history Paternal Family History: Family History (Last Reviewed 06/28/17 @ 09:08 by Stephany Lugo) Sister CAD (coronary artery disease) Diabetes Brother CAD (coronary artery disease) No pertinent history Smoking Status: Former smoker Review of Systems Constitutional: Denies: Anorexia, Chills, Fever Eyes: Denies: Blurred vision, Pain HEENT: Denies: Difficulty Hearing, Difficulty Swallowing Cardiovascular: Denies: Chest Pain, Chest Tightness Respiratory: Denies: Cough, Hemoptysis Gastrointestinal: Denies: Abdominal Pain, Hematemesis, Vomiting Genitourinary: Denies: Incontinence Skin: Denies: Jaundice - Physical Exam Vital Signs Temp Pulse Resp BP 97.6 F L 99 18 119/69 10/06/17 09:06 10/06/17 09:06 10/06/17 09:06 10/06/17 09:06 General: Alert, Oriented x3, Cooperative, No apparent distress HEENT: Normocephalic Oral: Moist Mucosa Neck: Supple Lungs: Normal air movement Cardiovascular: Regular rate, Regular Rhythm Abdomen: Soft, Non Tender Extremities: No cyanosis Skin: Ulcer/ Wound Wound Measurements and Assessment WC - Nurse 1 - General Ulcer Measurement Start: 10/06/17 09:05 Freq: Status: Active Protocol: Activity Type Activity Date Activity User E-Sign Co-Sign Detail [Ulcer Assessment] - Nurse 2 - General Ulcer CM Notes Start: 10/06/17 09:05 Freq: Status: Active Protocol: Activity Type Activity Date Activity User E-Sign Co-Sign Detail Recorded Client Recorded Date Recorded By Document 10/06/17 09:51 JANAE [id number] 10/06/17 09:52 JANAE Wound Center Nurse 2 Musculoskeletal: No Muscle Wasting Neurological: Cranial nerves II-XII grossly intact Psych/Mental Status: Normal Affect Debridement Note Post-Debridement Measurements/Treatment - Nurse 2 - General Ulcer CM Notes Start: 10/06/17 09:05 Freq: Status: Active Protocol: Activity Type Activity Date Activity User E-Sign Co-Sign Detail Recorded Client Recorded Date Recorded By Document 10/06/17 09:51 JANAE [id number] 10/06/17 09:52 Wound Center Nurse 2 #1 POSTERIOR HEAD -Time 09:51 -Correct Patient Yes -Correct Side, Site, Position Yes -Correct Procedure Yes Wound debrided: Posterior scalp Wound Grade/Stage: Stage II Type of Debridement: Excisional debridement Anesthesia Used: 4% Lidocaine Solution Depth: Down to and including healthy tissue, in the subcutaneous layer Percentage of wound debrided: 100 Instrument Used: 3mm curette Tissue Removed: Slough and devitalized tissue Severity: Fat Layer Exposed Amount of bleeding with debridement: Mild Bleeding Controlled with: Pressure Patient tolerated procedure well Assessment/Plan Active Problems (Last Updated 03/18/17 @ 10:35 by Jesús Hensley CORE STRIPPER-C) Open wound of scalp (Chronic) Diabetes mellitus (Chronic) Assessment: Non healing traumatic posterior scalp wound. Plan: Debridement done as documented above. Procedure was well tolerated. Tianna with adaptic over top. Change daily. Increased protein intake and optimal blood sugar control. Follow up in 2 weeks per patient request. His questions were answered and he was asked to call with any questions or concerns. 10/08/17 1452 <Electronically signed by Arianna Balbuena MD> Date Arianna Balbuena MD CC: Signed CBC AND DIFFERENTIAL Collected: 09/07/2017 Status: F Source: [place] 10:38 AM [facility] REPOSITORY TYPE CODE TESTS RESULT OUT OF REFERENCE UNITS RANGE LAB WBC 3.70-11.00 k/uL WBC 6.68 LAB RBC 4.20-6.00 m/uL RBC 4.40 LAB HGB 13.0-17.0 g/dL Low Hemoglobin 12.4 LAB HCT 39.0-51.0 % Hematocrit 41.0 LAB MCV 80.0-100.0 fL MCV 93.2 LAB MCH 26.0-34.0 pG MCH 28.2 LAB MCHC 30.5-36.0 g/dL Low MCHC 30.2 LAB RDWCV 11.5-15.0 % RDW-CV High 16.1 LAB PLTCT 150-400 k/uL Platelet Count 201 LAB MPV 9.0-12.7 fL MPV 11.7 LAB ANEUT % Neut% 63.5 LAB AANEUT 1.45-7.50 k/uL Abs Neut 4.24 LAB ALYMP % Lymph% 24.1 LAB AALYMP 1.00-4.00 k/uL Abs Lymph 1.61 LAB AMONO % Brown% 9.7 LAB AAMONO <0.87 k/uL Abs Brown 0.65 LAB AEOS % Eosin% 2.1 LAB AAEOS <0.46 k/uL Abs Eosin 0.14 LAB ABASO % Baso% 0.6 LAB AABASO <0.11 k/uL Abs Baso 0.04 LAB AUNRBC 0 /100 WBC NRBCs 0.0 LAB ABNRBC <0.01 k/uL Absolute nRBC <0.01 LAB DTYP DTYPE Auto Diff Performed By: #### CBCDIF, IRON, FERR, B12, SERFOL #### [facility] [address] [address] IRON AND TIBC Collected: 09/07/2017 Status: F Source: [place] 10:38 AM [facility] REPOSITORY TYPE CODE TESTS RESULT OUT OF REFERENCE UNITS RANGE LAB IRN 41-186 ug/dL Low Iron 32 LAB TIBC 232-386 ug/dL TIBC 277 LAB SAT 15-57 % Low Transferrin Saturatn 12 Performed By: #### CBCDIF, IRON, FERR, B12, SERFOL #### [place] [address] FERRITIN Collected: 09/07/2017 Status: F Source: [place] 10:38 AM [facility] REPOSITORY TYPE CODE TESTS RESULT OUT OF REFERENCE UNITS RANGE LAB FERR 30.3-565.7 ng/mL Ferritin 100.3 Performed By: #### CBCDIF, IRON, FERR, B12, SERFOL #### [place] [address] VITAMIN B12 Collected: 09/07/2017 Status: F Source: [place] 10:38 AM [facility] REPOSITORY TYPE CODE TESTS RESULT OUT OF REFERENCE UNITS RANGE LAB B12 232-1245 pg/mL Vitamin B12 835 Performed By: #### CBCDIF, IRON, FERR, B12, SERFOL #### [place] [address] FOLATE, SERUM Collected: 09/07/2017 Status: F Source: [place] 10:38 AM [facility] REPOSITORY TYPE CODE TESTS RESULT OUT OF REFERENCE UNITS RANGE LAB SERFOL >4.7 ng/mL Folate, >20.0 Serum Result Comment: A result of > 20 ng/mL is not necessarily indicative of a pathologic or treatable condition: it reflects a limitation of the test methodology. Assay reference range: 4.8 to 24.2 ng/mL. Suitable for detection of folate deficiency. Reference: Folate III (Folate III) [package insert V 1.0 Danish]. [facility], [place], [place]: January 2015. Performed By: #### CBCDIF, IRON, FERR, B12, SERFOL #### [facility] [address] [place], [place] [address] PROGRESS Observed: 09/07/2017 Status: COMPLETED Source: [place] 9:51 AM [facility] REPOSITORY HNO ID: [id number] Author: Ellis De Luna Service: (none) Author Type: Physician Type: Progress Notes Filed: 09/07/2017 11:26 AM Note Text: Chief Complaint Patient presents with: 4 month follow up HPI Micky Roldan is a 67 year old male who presents here today for Chronic Medical Conditions.. Patient with Hx as reviewed and documented below. Has not had any hospitalizations since last visit. Has completed PHYSICAL THERAPY and released. Returned to work about 3 weeks ago. Still having frequent dizziness. Still needs to f/u with Neurology Past medical history, appointments, medications, allergies reviewed. 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 - NEVUS///BENIGN OLEGARIO SKIN TRUNK 09/26/2007 - Other psoriasis 09/26/2007 - Other specified idiopathic peripheral neuropathy - PRURITIC DISORDER NOS 09/26/2007 - PVC (premature ventricular contraction) - PYODERMA NOS 09/26/2007 - SEBORRHEIC DERMATITIS NOS 09/26/2007 - SEBORRHEIC KERATOSIS NOS 12/16/2007 - Shoulder pain 05/05/2013 - SOLAR LENGINES////DYSCHROMIA OTHER 12/16/2007 - Type II or unspecified type diabetes mellitus without mention of complication, not stated as uncontrolled - Unspecified hypothyroidism Previous Surgical History PAST SURGICAL HISTORY Procedure Laterality Date - 2D ECHO (EXEP) 01/2017 EF=50-55%, with nl function - 2D ECHO (EXEP) 08/02/2017 EF=53%, mild infante dysf, mild UT and TI - NONE - PAST SURGICAL HISTORY OF 01/22/2017 CABG x3 Family History FAMILY HISTORY Problem Relation Age of Onset - toxic shock [Other] [OTHER] Mother - None Father - Thyroid Sister Patient Allergies ALLERGIES Allergen Reactions - Lanolin Itching Current Medications Current Outpatient Prescriptions on File Prior to Visit: clopidogrel (PLAVIX) 75 mg tablet Take 1 tablet by mouth once daily. HUMALOG MIX 75-25 KWIKPEN 100 unit/mL (75-25) inpn INJECT 23 UNITS SUBCUTANEOUSLY TWICE DAILY WITH MEALS. metFORMIN (GLUCOPHAGE) 500 mg tablet Take 1 tablet by mouth twice daily. rosuvastatin (CRESTOR) 5 mg tablet Take 1 tablet by mouth daily at bedtime. metoprolol tartrate, short acting, (LOPRESSOR) 25 mg tablet Take 0.5 tablets by mouth twice daily. insulin needles, DISPOSABLE, (PEN NEEDLE) 31 gauge x 5/16 ndle Use with 75/25 twice daily losartan (COZAAR) 25 mg tablet Take 1 tablet by mouth once daily. Per Dr. Vance, Cardiology acetaminophen (TYLENOL) 325 mg tablet Take 2 tablets by mouth every 6 hours as needed for Pain. blood sugar diagnostic (FREESTYLE LITE STRIPS) test strip Test blood sugar 3-4 times daily levothyroxine (SYNTHROID) 125 mcg tablet TAKE 1 TABLET BY MOUTH ONCE DAILY. TAKE ON EMPTY STOMACH. FOR THYROID. MULTIVIT-MINERALS/FERROUS FUM (MULTI VITAMIN ORAL) Take by mouth. TURMERIC (CURCUMIN MISC) Zehgbkcjyuv-Sbgufvxni-Rjd C-Mn (GLUCOSAMINE CHONDROITIN MAXSTR) 500-400 mg cap Take 1 capsule by mouth three times daily. COMPOUNDED PRESCRIPTION Take 1 capsule by mouth twice daily. Glucosamine 1500mg/ Chondroitin 800mg/MSM 750mg/ Vit D3 - 2000IU insulin 75/25 lispro protamine/lispro units/mL (HUMALOG MIX 75-25 KWIKPEN) 100 unit/mL (75-25) inpn Inject 25 Units subcutaneously twice daily with meals. No current facility-administered medications on file prior to visit. Social History Social History Marital status: Spouse name: Years of education: Number of children: Social History Main Topics Smoking status: Former Smoker Packs/day: 0.00 Years: 0.00 Quit date: 12/20/1997 Smokeless tobacco: Former User Types: Snuff, Chew Alcohol use: No Drug use: No Review of Symptoms REVIEW OF SYSTEMS GENERAL: No weight loss, malaise or fevers, feels tired all the time. NECK: Negative for lumps, goiter, pain and significant neck swelling RESPIRATORY: Negative for cough, hemoptysis, wheezing, COPD, dyspnea or shortness of breath CARDIOVASCULAR: Negative for chest pain, leg swelling, hypertension, CHF or changes in his typical. palpitations GI: No nausea, vomiting, or diarrhea and No heartburn or reflux symptoms : No history of dysuria or blood ENDOCRINE: no low BS symptoms. NEURO: No history of syncope, paralysis, seizures or tremors. headache's on back of head secondary to fall are diminishing. See HPI regarding dizziness. EXAM: BP 122/70 Pulse 68 Temp 36.4 ?C (97.5 ?F) (Tympanic) Resp 16 Wt 107 kg (236 lb) BMI 31.87 kg/m? General Appearance: Well appearing, alert, in no acute distress, well-hydrated, well nourished.. Eyes: Anicteric sclera. Pupils are equally round and reactive to light. Extraocular movements are intact. . Oropharynx: Lips, mucosa, and tongue normal, teeth and gums normal, oropharynx normal. Neck: Supple, no adenopathy; thyroid symmetric, normal size, no bruits. Lungs: Lungs clear to auscultation. No wheezing, rhonchi, rales. Heart: RRR without murmur, gallop, or rubs. No ectopy. Abdomen: Normal abdominal exam, Abdomen soft, non-tender. Bowel sounds normal. No masses, organomegaly. Extremities: No deformities, edema, skin discoloration,. Musculoskeletal: Muscular strength intact, No joint swelling, deformity, or tenderness. Peripheral Pulses: Normal. Neurologic: Gait normal. Reflexes normal and symmetric. Sensation to light touch and crainal nerves 2-12 intact.. Health Maintenance List ZOSTER VACCINE (SHINGRIX)(1 of 2) due on 2000 HBA1C due on 02/26/2018 PNEUMOVAX AGE 65 AND OVER WITH 5YR LOOKBACK(1) due on 04/26/2018 URINE ALBUMIN CREATININE RATIO due on 06/02/2018 LDL due on 06/02/2018 DIABETIC FOOT EXAM due on 07/01/2018 FECAL OCCULT BLOOD due on 08/27/2018 DILATED RETINAL EXAM due on 08/31/2018 DTAP,TDAP,TD(3 - Td) due on 07/04/2027 PROSTATE CANCER SCREENING DISCUSSION Completed ADULT PREVNAR-13 Completed INFLUENZA Completed HEPATITIS C SCREENING Completed Data reviewed Component Latest Ref Rng AND Units 06/02/2017 08/27/2017 Color Yellow Yellow Clarity Clear Cloudy (A) Glucose, Urine Negative mg/dL 50 (A) Bilirubin, Urine Negative Negative Ketones, Urine Negative Negative Specific [place], Ur 1.005 - 1.030 1.024 Hemoglobin/Blood,Ur Negative Negative pH, Urine 4.5 - 8.0 5.0 Protein, Urine Negative mg/dL Negative Urobilinogen Normal Normal Nitrites Negative Negative Leukest Negative Negative Comments SEE COMMENT Urine Filipe Comment SEE COMMENT WBC, Urine 0 - 5 /HPF 0-5 RBC, Urine 0 - 3 /HPF 0-3 Cast 0 /LPF SEE COMMENT (A) Epithelial Cells /HPF SEE COMMENT Protein, Total 6.3 - 8.0 g/dL 8.0 7.4 Albumin 3.9 - 4.9 g/dL 4.1 3.8 (L) Calcium 8.5 - 10.2 mg/dL 9.4 9.0 Bilirubin, Total 0.2 - 1.3 mg/dL 0.4 0.4 Alkaline Phosphatase 36 - 108 U/L 64 61 AST 14 - 40 U/L 24 23 Glucose 74 - 99 mg/dL 92 78 BUN 9 - 24 mg/dL 23 21 Creatinine 0.73 - 1.22 mg/dL 1.33 (H) 1.17 Sodium 136 - 144 mmol/L 140 138 Potassium 3.7 - 5.1 mmol/L 4.6 4.5 Chloride 97 - 105 mmol/L 101 99 CO2 22 - 30 mmol/L 26 25 Anion Gap 9 - 18 mmol/L 13 14 ALT 10 - 54 U/L 20 14 eGFR- >60 >60 eGFR-All Other Races . 54 >60 WBC 3.70 - 11.00 k/uL 8.04 RBC 4.20 - 6.00 m/uL 4.27 Hemoglobin 13.0 - 17.0 g/dL 12.3 (L) Hematocrit 39.0 - 51.0 % 38.3 (L) MCV 80.0 - 100.0 fL 89.7 MCH 26.0 - 34.0 pG 28.8 MCHC 30.5 - 36.0 g/dL 32.1 RDW-CV 11.5 - 15.0 % 15.7 (H) Platelet Count 150 - 400 k/uL 200 MPV 9.0 - 12.7 fL 11.9 Absolute nRBC <0.01 k/uL <0.01 Cholesterol, Total <200 mg/dL 113 Triglyceride <150 mg/dL 190 (H) HDL Cholesterol >39 mg/dL 34 (L) LDL Cholesterol <100 mg/dL 41 Non HDL Cholesterol <130 mg/dL 79 Fasting Time hrs 8 VLDL Cholesterol <30 mg/dL 38 (H) TC:HDL Ratio <5.10 3.32 LDL:HDL Ratio <2.54 1.21 Creatinine, Ur Random (UCRR) 20 - 300 mg/dL 205.3 Albumin, Urine Random 0.0 - 23.0 mg/L <12.0 Albumin/Creat Ratio 0 - 30 mg/g Not calculated Hemoglobin A1C 4.3 - 5.6 % 9.4 (H) 8.7 (H) Estimated Average Glucose mg/dL 223 203 TSH 0.400 - 5.500 uU/mL 4.200 Vitamin D 25 Hydroxy 31.0 - 80.0 ng/mL 42.5 Occult Blood, Stool Negative Negative Component Latest Ref Rng AND Units 04/11/2013 06/15/2014 08/27/2017 WBC 3.70 - 11.00 k/uL 7.26 9.15 8.04 RBC 4.20 - 6.00 m/uL 5.23 4.98 4.27 Hemoglobin 13.0 - 17.0 g/dL 16.0 15.1 12.3 (L) Hematocrit 39.0 - 51.0 % 46.6 43.8 38.3 (L) MCV 80.0 - 100.0 fL 89.1 88.0 89.7 MCH 26.0 - 34.0 pG 30.6 30.3 28.8 MCHC 30.5 - 36.0 g/dL 34.3 34.5 32.1 RDW-CV 11.5 - 15.0 % 13.2 13.4 15.7 (H) Platelet Count 150 - 400 k/uL 176 174 200 MPV 9.0 - 12.7 fL 12.4 11.5 11.9 Neut% % 63.6 61.4 Abs Neut (ANC) 1.45 - 7.50 k/uL 4.62 5.62 Lymph% % 28.8 30.5 Abs Lymph 1.00 - 4.00 k/uL 2.09 2.79 Brown% % 5.4 4.4 Abs Brown 0.00 - 0.86 k/uL 0.39 0.40 Eosin% % 1.8 3.2 Abs Eosin 0.00 - 0.45 k/uL 0.13 0.29 Baso% % 0.4 0.5 Abs Baso 0.00 - 0.10 k/uL 0.03 0.05 Diff Type Auto Diff Auto Diff Absolute nRBC <0.01 k/uL <0.01 A/P ASSESSMENT/PLAN: 1. Uncontrolled type 2 diabetes mellitus with diabetic neuropathy, with long-term current use of insulin (HCC) - ICD9: 250.62, 357.2, V58.67, ICD10: E11.40, Z79.4, E11.65 (primary diagnosis) Uncontrolled, But improved - Increase Humalog/Novolog insulin to 28 units twice a day - Blood glucose monitoring on a twice a day and bring readings to me in 2 weeks to see if further adjustment needed. - Cont daily plavix - BP goal of <130/80 - LDL goal of <100 2. Essential hypertension with goal blood pressure less than 130/85 - ICD9: 401.9, ICD10: I10 - good control - Continue current medication(s) - Recommended regular aerobic exercise. - Recommend home blood pressure monitoring, to bring results in on next visit - Goal of BP <130/80 3. Mixed hyperlipidemia - ICD9: 272.2, ICD10: E78.2 - good control - Had to stop the Crestor due to muscle aches and stiffness. Will hold on starting something new at this time. - Encouraged following a low fat, low cholesterol diet. - Discussed the benefits of regular aerobic exercise and weight loss. - Encouraged following a low carbohydrate, healthy oil intake diet. 4. Acquired hypothyroidism - ICD9: 244.9, ICD10: E03.9 - Instructed patient on importance of taking on an empty stomach either first thing in the morning or at bedtime. - continue current dose of Synthroid 0.125 mg 5. Coronary artery disease due to lipid rich plaque - ICD9: 414.00, 414.3, ICD10: I25.10, I25.83 - Clinically stable cont cardio f/u 6. Idiopathic peripheral neuropathy - ICD9: 356.9, ICD10: G60.9 - Clinically stable 7. PVC (premature ventricular contraction) - ICD9: 427.69, ICD10: I49.3 - Clinically stable no changes. 8. Right-sided cerebrovascular accident (CVA) (HCC) - ICD9: 434.91, ICD10: I63.9 - There is still some delay in voicing what he wants to say at times along with reading but he has noticed significant improvement. Advised to f/u with Neuro for this and his dizziness. - Discussed trying Antivert and patient will consider. - Cont plavix Along with BP control and if can lipid improvement. 9. Ischemic cerebrovascular accident (CVA) (HCC) - ICD9: 434.91, ICD10: I63.9 - As above - Cont Plavix and BP control. 10. Multiple lung nodules - ICD9: 793.19, ICD10: R91.8 Check - CT CHEST WO IVCON 11. Ex-smoker - ICD9: V15.82, ICD10: Z87.891 check - CT CHEST WO IVCON 12. Anemia, unspecified type - ICD9: 285.9, ICD10: D64.9 On 08/01/2017 Hg was 14.1 and recent one was 12.3 a significant drop. Patient denies and bleeding on review. informed him may need EGD and Colonoscopy. Check - VITAMIN B12 BLOOD - IRON + TIBC - FERRITIN BLD - CBC + DIFF - FOLATE SERUM 13. Lung nodules - ICD9: 793.19, ICD10: R91.8 Check - CT CHEST WO IVCON f/u in 4 months routine. Check A1c, FLP, LFT's and TSH prior Time with patient face to face was 25 min Ellis De Luna MD CNOV Observed: 09/07/2017 Status: COMPLETED Source: [place] 9:40 AM [facility] REPOSITORY Office Visit (FAMPWS) MICKY ROLDAN ([id number]) 1950 M Date Time Provider Department 09/07/17 9:40 AM ELLIS DE LUNA During your visit today, we recorded the following information about you: Temperature Pulse Respiration Blood pressure 97.5 degrees 68/minute 16/minute 122/70 Weight 107 kg Ellis De Luna MD 09/07/2017 11:26 AM Signed Chief Complaint Patient presents with: 4 month follow up HPI Micky Roldan is a 67 year old male who presents here today for Chronic Medical Conditions.. Patient with Hx as reviewed and documented below. Has not had any hospitalizations since last visit. Has completed PHYSICAL THERAPY and released. Returned to work about 3 weeks ago. Still having frequent dizziness. Still needs to f/u with Neurology Past medical history, appointments, medications, allergies reviewed. 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 - NEVUS///BENIGN OLEGARIO SKIN TRUNK 09/26/2007 - Other psoriasis 09/26/2007 - Other specified idiopathic peripheral neuropathy - PRURITIC DISORDER NOS 09/26/2007 - PVC (premature ventricular contraction) - PYODERMA NOS 09/26/2007 - SEBORRHEIC DERMATITIS NOS 09/26/2007 - SEBORRHEIC KERATOSIS NOS 12/16/2007 - Shoulder pain 05/05/2013 - SOLAR LENGINES////DYSCHROMIA OTHER 12/16/2007 - Type II or unspecified type diabetes mellitus without mention of complication, not stated as uncontrolled - Unspecified hypothyroidism Previous Surgical History PAST SURGICAL HISTORY Procedure Laterality Date - 2D ECHO (EXEP) 01/2017 EF=50-55%, with nl function - 2D ECHO (EXEP) 08/02/2017 EF=53%, mild infante dysf, mild UT and TI - NONE - PAST SURGICAL HISTORY OF 01/22/2017 CABG x3 Family History FAMILY HISTORY Problem Relation Age of Onset - toxic shock [Other] [OTHER] Mother - None Father - Thyroid Sister Patient Allergies ALLERGIES Allergen Reactions - Lanolin Itching Current Medications Current Outpatient Prescriptions on File Prior to Visit: clopidogrel (PLAVIX) 75 mg tablet Take 1 tablet by mouth once daily. HUMALOG MIX 75-25 KWIKPEN 100 unit/mL (75-25) inpn INJECT 23 UNITS SUBCUTANEOUSLY TWICE DAILY WITH MEALS. metFORMIN (GLUCOPHAGE) 500 mg tablet Take 1 tablet by mouth twice daily. rosuvastatin (CRESTOR) 5 mg tablet Take 1 tablet by mouth daily at bedtime. metoprolol tartrate, short acting, (LOPRESSOR) 25 mg tablet Take 0.5 tablets by mouth twice daily. insulin needles, DISPOSABLE, (PEN NEEDLE) 31 gauge x 5/16 ndle Use with 75/25 twice daily losartan (COZAAR) 25 mg tablet Take 1 tablet by mouth once daily. Per Dr. Vance, Cardiology acetaminophen (TYLENOL) 325 mg tablet Take 2 tablets by mouth every 6 hours as needed for Pain. blood sugar diagnostic (FREESTYLE LITE STRIPS) test strip Test blood sugar 3-4 times daily levothyroxine (SYNTHROID) 125 mcg tablet TAKE 1 TABLET BY MOUTH ONCE DAILY. TAKE ON EMPTY STOMACH. FOR THYROID. MULTIVIT-MINERALS/FERROUS FUM (MULTI VITAMIN ORAL) Take by mouth. TURMERIC (CURCUMIN MISC) Ppomtrkvtai-Jvjrqtsqe-Vxg C-Mn (GLUCOSAMINE CHONDROITIN MAXSTR) 500-400 mg cap Take 1 capsule by mouth three times daily. COMPOUNDED PRESCRIPTION Take 1 capsule by mouth twice daily. Glucosamine 1500mg/ Chondroitin 800mg/MSM 750mg/ Vit D3 - 2000IU insulin 75/25 lispro protamine/lispro units/mL (HUMALOG MIX 75-25 KWIKPEN) 100 unit/mL (75-25) inpn Inject 25 Units subcutaneously twice daily with meals. No current facility-administered medications on file prior to visit. Social History Social History Marital status: Spouse name: Years of education: Number of children: Social History Main Topics Smoking status: Former Smoker Packs/day: 0.00 Years: 0.00 Quit date: 12/20/1997 Smokeless tobacco: Former User Types: Snuff, Chew Alcohol use: No Drug use: No Review of Symptoms REVIEW OF SYSTEMS GENERAL: No weight loss, malaise or fevers, feels tired all the time. NECK: Negative for lumps, goiter, pain and significant neck swelling RESPIRATORY: Negative for cough, hemoptysis, wheezing, COPD, dyspnea or shortness of breath CARDIOVASCULAR: Negative for chest pain, leg swelling, hypertension, CHF or changes in his typical. palpitations GI: No nausea, vomiting, or diarrhea and No heartburn or reflux symptoms : No history of dysuria or blood ENDOCRINE: no low BS symptoms. NEURO: No history of syncope, paralysis, seizures or tremors. headache's on back of head secondary to fall are diminishing. See HPI regarding dizziness. EXAM: BP 122/70 Pulse 68 Temp 36.4 ?C (97.5 ?F) (Tympanic) Resp 16 Wt 107 kg (236 lb) BMI 31.87 kg/m? General Appearance: Well appearing, alert, in no acute distress, well-hydrated, well nourished.. Eyes: Anicteric sclera. Pupils are equally round and reactive to light. Extraocular movements are intact. . Oropharynx: Lips, mucosa, and tongue normal, teeth and gums normal, oropharynx normal. Neck: Supple, no adenopathy; thyroid symmetric, normal size, no bruits. Lungs: Lungs clear to auscultation. No wheezing, rhonchi, rales. Heart: RRR without murmur, gallop, or rubs. No ectopy. Abdomen: Normal abdominal exam, Abdomen soft, non-tender. Bowel sounds normal. No masses, organomegaly. Extremities: No deformities, edema, skin discoloration,. Musculoskeletal: Muscular strength intact, No joint swelling, deformity, or tenderness. Peripheral Pulses: Normal. Neurologic: Gait normal. Reflexes normal and symmetric. Sensation to light touch and crainal nerves 2-12 intact.. Health Maintenance List ZOSTER VACCINE (SHINGRIX)(1 of 2) due on 2000 HBA1C due on 02/26/2018 PNEUMOVAX AGE 65 AND OVER WITH 5YR LOOKBACK(1) due on 04/26/2018 URINE ALBUMIN CREATININE RATIO due on 06/02/2018 LDL due on 06/02/2018 DIABETIC FOOT EXAM due on 07/01/2018 FECAL OCCULT BLOOD due on 08/27/2018 DILATED RETINAL EXAM due on 08/31/2018 DTAP,TDAP,TD(3 - Td) due on 07/04/2027 PROSTATE CANCER SCREENING DISCUSSION Completed ADULT PREVNAR-13 Completed INFLUENZA Completed HEPATITIS C SCREENING Completed Data reviewed Component Latest Ref Rng AND Units 06/02/2017 08/27/2017 Color Yellow Yellow Clarity Clear Cloudy (A) Glucose, Urine Negative mg/dL 50 (A) Bilirubin, Urine Negative Negative Ketones, Urine Negative Negative Specific [place], Ur 1.005 - 1.030 1.024 Hemoglobin/Blood,Ur Negative Negative pH, Urine 4.5 - 8.0 5.0 Protein, Urine Negative mg/dL Negative Urobilinogen Normal Normal Nitrites Negative Negative Leukest Negative Negative Comments SEE COMMENT Urine Filipe Comment SEE COMMENT WBC, Urine 0 - 5 /HPF 0-5 RBC, Urine 0 - 3 /HPF 0-3 Cast 0 /LPF SEE COMMENT (A) Epithelial Cells /HPF SEE COMMENT Protein, Total 6.3 - 8.0 g/dL 8.0 7.4 Albumin 3.9 - 4.9 g/dL 4.1 3.8 (L) Calcium 8.5 - 10.2 mg/dL 9.4 9.0 Bilirubin, Total 0.2 - 1.3 mg/dL 0.4 0.4 Alkaline Phosphatase 36 - 108 U/L 64 61 AST 14 - 40 U/L 24 23 Glucose 74 - 99 mg/dL 92 78 BUN 9 - 24 mg/dL 23 21 Creatinine 0.73 - 1.22 mg/dL 1.33 (H) 1.17 Sodium 136 - 144 mmol/L 140 138 Potassium 3.7 - 5.1 mmol/L 4.6 4.5 Chloride 97 - 105 mmol/L 101 99 CO2 22 - 30 mmol/L 26 25 Anion Gap 9 - 18 mmol/L 13 14 ALT 10 - 54 U/L 20 14 eGFR- >60 >60 eGFR-All Other Races . 54 >60 WBC 3.70 - 11.00 k/uL 8.04 RBC 4.20 - 6.00 m/uL 4.27 Hemoglobin 13.0 - 17.0 g/dL 12.3 (L) Hematocrit 39.0 - 51.0 % 38.3 (L) MCV 80.0 - 100.0 fL 89.7 MCH 26.0 - 34.0 pG 28.8 MCHC 30.5 - 36.0 g/dL 32.1 RDW-CV 11.5 - 15.0 % 15.7 (H) Platelet Count 150 - 400 k/uL 200 MPV 9.0 - 12.7 fL 11.9 Absolute nRBC <0.01 k/uL <0.01 Cholesterol, Total <200 mg/dL 113 Triglyceride <150 mg/dL 190 (H) HDL Cholesterol >39 mg/dL 34 (L) LDL Cholesterol <100 mg/dL 41 Non HDL Cholesterol <130 mg/dL 79 Fasting Time hrs 8 VLDL Cholesterol <30 mg/dL 38 (H) TC:HDL Ratio <5.10 3.32 LDL:HDL Ratio <2.54 1.21 Creatinine, Ur Random (UCRR) 20 - 300 mg/dL 205.3 Albumin, Urine Random 0.0 - 23.0 mg/L <12.0 Albumin/Creat Ratio 0 - 30 mg/g Not calculated Hemoglobin A1C 4.3 - 5.6 % 9.4 (H) 8.7 (H) Estimated Average Glucose mg/dL 223 203 TSH 0.400 - 5.500 uU/mL 4.200 Vitamin D 25 Hydroxy 31.0 - 80.0 ng/mL 42.5 Occult Blood, Stool Negative Negative Component Latest Ref Rng AND Units 04/11/2013 06/15/2014 08/27/2017 WBC 3.70 - 11.00 k/uL 7.26 9.15 8.04 RBC 4.20 - 6.00 m/uL 5.23 4.98 4.27 Hemoglobin 13.0 - 17.0 g/dL 16.0 15.1 12.3 (L) Hematocrit 39.0 - 51.0 % 46.6 43.8 38.3 (L) MCV 80.0 - 100.0 fL 89.1 88.0 89.7 MCH 26.0 - 34.0 pG 30.6 30.3 28.8 MCHC 30.5 - 36.0 g/dL 34.3 34.5 32.1 RDW-CV 11.5 - 15.0 % 13.2 13.4 15.7 (H) Platelet Count 150 - 400 k/uL 176 174 200 MPV 9.0 - 12.7 fL 12.4 11.5 11.9 Neut% % 63.6 61.4 Abs Neut (ANC) 1.45 - 7.50 k/uL 4.62 5.62 Lymph% % 28.8 30.5 Abs Lymph 1.00 - 4.00 k/uL 2.09 2.79 Brown% % 5.4 4.4 Abs Brown 0.00 - 0.86 k/uL 0.39 0.40 Eosin% % 1.8 3.2 Abs Eosin 0.00 - 0.45 k/uL 0.13 0.29 Baso% % 0.4 0.5 Abs Baso 0.00 - 0.10 k/uL 0.03 0.05 Diff Type Auto Diff Auto Diff Absolute nRBC <0.01 k/uL <0.01 A/P ASSESSMENT/PLAN: 1. Uncontrolled type 2 diabetes mellitus with diabetic neuropathy, with long-term current use of insulin (HCC) - ICD9: 250.62, 357.2, V58.67, ICD10: E11.40, Z79.4, E11.65 (primary diagnosis) Uncontrolled, But improved - Increase Humalog/Novolog insulin to 28 units twice a day - Blood glucose monitoring on a twice a day and bring readings to me in 2 weeks to see if further adjustment needed. - Cont daily plavix - BP goal of <130/80 - LDL goal of <100 2. Essential hypertension with goal blood pressure less than 130/85 - ICD9: 401.9, ICD10: I10 - good control - Continue current medication(s) - Recommended regular aerobic exercise. - Recommend home blood pressure monitoring, to bring results in on next visit - Goal of BP <130/80 3. Mixed hyperlipidemia - ICD9: 272.2, ICD10: E78.2 - good control - Had to stop the Crestor due to muscle aches and stiffness. Will hold on starting something new at this time. - Encouraged following a low fat, low cholesterol diet. - Discussed the benefits of regular aerobic exercise and weight loss. - Encouraged following a low carbohydrate, healthy oil intake diet. 4. Acquired hypothyroidism - ICD9: 244.9, ICD10: E03.9 - Instructed patient on importance of taking on an empty stomach either first thing in the morning or at bedtime. - continue current dose of Synthroid 0.125 mg 5. Coronary artery disease due to lipid rich plaque - ICD9: 414.00, 414.3, ICD10: I25.10, I25.83 - Clinically stable cont cardio f/u 6. Idiopathic peripheral neuropathy - ICD9: 356.9, ICD10: G60.9 - Clinically stable 7. PVC (premature ventricular contraction) - ICD9: 427.69, ICD10: I49.3 - Clinically stable no changes. 8. Right-sided cerebrovascular accident (CVA) (HCC) - ICD9: 434.91, ICD10: I63.9 - There is still some delay in voicing what he wants to say at times along with reading but he has noticed significant improvement. Advised to f/u with Neuro for this and his dizziness. - Discussed trying Antivert and patient will consider. - Cont plavix Along with BP control and if can lipid improvement. 9. Ischemic cerebrovascular accident (CVA) (HCC) - ICD9: 434.91, ICD10: I63.9 - As above - Cont Plavix and BP control. 10. Multiple lung nodules - ICD9: 793.19, ICD10: R91.8 Check - CT CHEST WO IVCON 11. Ex-smoker - ICD9: V15.82, ICD10: Z87.891 check - CT CHEST WO IVCON 12. Anemia, unspecified type - ICD9: 285.9, ICD10: D64.9 On 08/01/2017 Hg was 14.1 and recent one was 12.3 a significant drop. Patient denies and bleeding on review. informed him may need EGD and Colonoscopy. Check - VITAMIN B12 BLOOD - IRON + TIBC - FERRITIN BLD - CBC + DIFF - FOLATE SERUM 13. Lung nodules - ICD9: 793.19, ICD10: R91.8 Check - CT CHEST WO IVCON f/u in 4 months routine. Check A1c, FLP, LFT's and TSH prior Time with patient face to face was 25 min MD Ellis Alvarez MD 09/07/2017 10:25 AM Addendum Increase insulin to 28 units twice a day. Blood glucose monitoring on a twice a day basis (fasting and 2 hrs after a larger meal) and bring readings to me in 2 weeks to see if further adjustment needed. Please get fasting labs on or after 12/24/2017 prior to next visit. Referring Provider: ELLIS DE LUNA [[id number]] Allergies As of Date: 09/07/2017 Noted Allergy Reaction CRESTOR (ROSUVASTATIN CALCIUM) 09/07/2017 17 - Myalgia LANOLIN 02/15/2008 9 - Itching LIPITOR (ATORVASTATIN CALCIUM) 09/07/2017 17 - Myalgia Date Reviewed: 09/07/2017 Reviewed by: Ellis De Luna - Fully Assessed Reason for Visit: 4 month follow up [Other] Primary Visit Diagnosis:Uncontrolled type 2 diabetes mellitus with diabetic neuropathy, with long-term current use of insulin (HCC) [E11.40, Z79.4, E11.65] Other Visit Diagnoses:Essential hypertension with goal blood pressure less than 130/85 [I10] Mixed hyperlipidemia [E78.2] Acquired hypothyroidism [E03.9] Coronary artery disease due to lipid rich plaque [I25.10, I25.83] Idiopathic peripheral neuropathy [G60.9] PVC (premature ventricular contraction) [I49.3] Right-sided cerebrovascular accident (CVA) (HCC) [I63.9] Ischemic cerebrovascular accident (CVA) (HCC) [I63.9] Multiple lung nodules [R91.8] Ex-smoker [Z87.891] Anemia, unspecified type [D64.9] Lung nodules [R91.8] Order(s):VITAMIN B12 BLOOD [SQB12] Order #: [id number] FUTURE IRON + TIBC [SQIRON] Order #: [id number] FUTURE FERRITIN BLD [SQFERR] Order #: [id number] FUTURE CBC + DIFF [SQCBCDIF] Order #: [id number] FUTURE FOLATE SERUM [SQSERFOL] Order #: [id number] FUTURE CT CHEST WO IVCON [0578655] Order #: [id number] FUTURE insulin 75/25 lispro protamine/lispro units/mL (HUMALOG MIX 75-25 KWIKPEN) 100 unit/mL (75-25) inpnInject 28 Units subcutaneously twice daily with meals.Disp: 5 PenRfl: 3 HGB A1C [VBWKC9E] Order #: [id number] FUTURE LIPID PANEL BASIC [SQLIPB] Order #: [id number] FUTURE HEPATIC FUNCTION PNL [SQHFP] Order #: [id number] FUTURE TSH BLD [SQTSH] Order #: [id number] FUTURE Prescriptions as of 09/07/2017 Sig: INSULIN LISPRO AND LISPRO PROT * Inject 28 Units subcutaneousl* CLOPIDOGREL 75 MG TABLET Take 1 tablet by mouth once d* METFORMIN 500 MG TABLET Take 1 tablet by mouth twice * METOPROLOL TARTRATE 25 MG TAB* Take 0.5 tablets by mouth twi* PEN NEEDLE, DIABETIC 31 GAUGE* Use with 75/25 twice daily LOSARTAN 25 MG TABLET Take 1 tablet by mouth once d* ACETAMINOPHEN 325 MG TABLET Take 2 tablets by mouth every* BLOOD SUGAR DIAGNOSTIC STRIPS Test blood sugar 3-4 times da* LEVOTHYROXINE 125 MCG TABLET TAKE 1 TABLET BY MOUTH ONCE D* MULTI VITAMIN ORAL Take by mouth. CURCUMIN MISC [id number] C-M* Take 1 capsule by mouth three* COMPOUNDED PRESCRIPTION Take 1 capsule by mouth twice* Medication notes this encounter ROSUVASTATIN 5 MG TABLET >> Ellis De Luna MD 09/07/2017 10:19 AM had muscle aches and stiffness. More... Problem List As Of Date 09/07/2017 Noted Resolved Idiopathic peripheral neuropathy [G60.9] Priority: A Pyoderma, unspecified [L08.0] INVALID FOR* Priority: C Other acne [L70.8] INVALID FOR* Priority: C Seborrheic dermatitis, unspecified [L21.9] INVALID FOR* Priority: C Other psoriasis [L40.8] INVALID FOR* Priority: C XEROSIS///SEBACEOUS GLAND DIS NEC [L73.8] INVALID FOR* Priority: C Other specified disease of nail [L60.8] INVALID FOR* Priority: C Other seborrheic keratosis [L82.1] INVALID FOR* Priority: C H/O balance disorder [Z87.898] Priority: B More... PVC (premature ventricular contraction) [I49.3] Priority: A Diabetic eye exam (HCC) [Z01.00, E11.9] INVALID FOR* Priority: A More... Dyslipidemia [E78.5] INVALID FOR*02/19/2014 Well adult exam [Z00.00] INVALID FOR* Priority: D More... Colon cancer screening [Z12.11] INVALID FOR* Acquired hypothyroidism [E03.9] INVALID FOR* Priority: A Mixed hyperlipidemia [E78.2] INVALID FOR* Priority: A Prostate cancer screening [Z12.5] INVALID FOR* Uncontrolled type 2 diabetes mellitus without c*INVALID FOR*06/04/2017 Priority: A Essential hypertension with goal blood pressure*INVALID FOR* Priority: A Ex-smoker [Z87.891] INVALID FOR* Priority: C More... Plantar fasciitis, left [M72.2] INVALID FOR* Priority: M Multiple lung nodules [R91.8] INVALID FOR* Priority: B More... Right-sided cerebrovascular accident (CVA) (HCC*INVALID FOR* Priority: A More... History of UT (myocardial infarction) [I25.2] INVALID FOR* Priority: A More... Coronary artery disease due to lipid rich plaqu*INVALID FOR* Priority: A More... 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 Uncontrolled type 2 diabetes mellitus with diab*INVALID FOR* Priority: A Ischemic cerebrovascular accident (CVA) (HCC) [*INVALID FOR* Priority: A More... Other instructions from your clinician: Increase insulin to 28 units twice a day. Blood glucose monitoring on a twice a day basis (fasting and 2 hrs after a larger meal) and bring readings to me in 2 weeks to see if further adjustment needed. Please get fasting labs on or after 12/24/2017 prior to next visit. Prescriptions ordered this encounter Disp Refills Start End INSULIN LISPRO AND LISPRO PROT (HUM) 1* 5 Pen 3 09/07/2017 Class: Med Update Route: SUBCUTANEOUS Sig: Inject 28 Units subcutaneously twice daily with meals. Medications Discontinued During This Encounter HUMALOG MIX 75-25 KWIKPEN 100 unit/m* 5 Pen 3 08/17/2017 09/07/2017 Route: SUBCUTANEOUS Sig: INJECT 23 UNITS SUBCUTANEOUSLY TWICE DAILY WITH MEALS. Disc: Duplicate Entry insulin 75/25 lispro protamine/lispr* 5 Pen 3 06/04/2017 09/07/2017 Class: Med Update Route: SUBCUTANEOUS Sig: Inject 25 Units subcutaneously twice daily with meals. Disc: Reason for discontinue is not on file. rosuvastatin (CRESTOR) 5 mg tablet 30 t* 5 06/25/2017 09/07/2017 Route: ORAL Sig: Take 1 tablet by mouth daily at bedtime. Disc: Discontinued by Patient Disposition: Return in about 4 months (around 01/07/2018) for routine. Follow-up and Disposition History Recorded Encounter Status:Closed by ELLIS DE LUNA on 09/07/17 CBC Collected: 08/27/2017 Status: F Source: [place] 8:48 AM [facility] REPOSITORY TYPE CODE TESTS RESULT OUT OF REFERENCE UNITS RANGE LAB WBC 3.70-11.00 k/uL WBC 8.04 LAB RBC 4.20-6.00 m/uL RBC 4.27 LAB HGB 13.0-17.0 g/dL Low Hemoglobin 12.3 LAB HCT 39.0-51.0 % Low Hematocrit 38.3 LAB MCV 80.0-100.0 fL MCV 89.7 LAB MCH 26.0-34.0 pG MCH 28.8 LAB MCHC 30.5-36.0 g/dL MCHC 32.1 LAB RDWCV 11.5-15.0 % RDW-CV High 15.7 LAB PLTCT 150-400 k/uL Platelet Count 200 LAB MPV 9.0-12.7 fL MPV 11.9 LAB ABSNUC <0.01 k/uL Absolute nRBC <0.01 Performed By: #### CBC #### [facility] [address] [place], [place] [address] COMP METABOLIC PANEL Collected: 08/27/2017 Status: F Source: [place] 8:48 AM [facility] REPOSITORY TYPE CODE TESTS RESULT OUT OF REFERENCE UNITS RANGE LAB TP 6.3-8.0 g/dL Protein, Total 7.4 LAB ALB 3.9-4.9 g/dL Low Albumin 3.8 LAB CA 8.5-10.2 mg/dL Calcium, Total 9.0 LAB TBIL 0.2-1.3 mg/dL Bilirubin, Total 0.4 LAB ALKP 36-108 U/L Alkaline Phosphatase 61 LAB AST 14-40 U/L AST 23 LAB GLU 74-99 mg/dL Glucose 78 Result Comment: The [place] Diabetes Association (ADA) provides guidance for cutoff values for fasting glucose and random glucose. The ADA defines fasting as no caloric intake for at least 8 hours. Fas ting plasma glucose results between 100 to 125 mg/dL indicate increased risk for diabetes (prediabetes). Fasting plasma glucose results greater than or equal to 126 mg/dL meet the criteria for diagnosis of diabetes. In the absence of unequivocal hyperglycemia, results should be confirmed by repeat testing. In a patient with classic symptoms of hyperglycemia or hyperglycemic crisis, random plasma glucose results greater than or equal to 200 mg/dL meet the criteria for diagnosis of diabetes. Reference: Standards of Medical Care in Diabetes 2016, English Diabetes Association. Diabetes Care. 2016.39(Suppl 1). LAB BUN 9-24 mg/dL BUN 21 LAB CRET 0.73-1.22 mg/dL Creatinine 1.17 LAB NA 136-144 mmol/L Sodium 138 LAB K 3.7-5.1 mmol/L Potassium 4.5 LAB CL 97-105 mmol/L Chloride 99 LAB CO2 22-30 mmol/L CO2 25 LAB AGAP 9-18 mmol/L Anion Gap 14 LAB ALT 10-54 U/L ALT 14 LAB GFRAA eGFR- Amer. >60 LAB GFRNAA . eGFR-All Other Races >60 Result Comment: eGFR (Estimated GFR) Units of measure: mL/min/1.73 meters squared eGFR is derived from the reexpressed MDRD Study equation using the following parameters: serum creatinine, age, gender and race. The creatinine assay has been calibrated to be traceable to IDMS. An eGFR <60 mL/min/1.73m2 for >3 months is consistent with chronic kidney disease. Refer to KDOQI guidelines for clinical interpretation. In patients with unstable renal function, e.g. those with acute kidney injury, the eGFR may not accurately reflect actual GFR. Performed By: #### CMP, HBA1C #### [facility] [address] [place] [id number] HEMOGLOBIN A1C Collected: 08/27/2017 Status: F Source: [place] 8:48 AM [facility] REPOSITORY TYPE CODE TESTS RESULT OUT OF REFERENCE UNITS RANGE LAB HGBA1C 4.3-5.6 % High Hemoglobin A1c 8.7 LAB HBA0 mg/dL Est. Average Glucose 203 Result Comment: eAG: (Estimated average glucose) is a calculated value from HgbA1c and is health and safety representative of the average blood glucose level in the last 2-3 month period. Performed By: #### CMP, HBA1C #### [facility] [address] [place] [id number] FECAL OCCULT BLD Collected: 08/27/2017 Status: F Source: [facility] 8:00 AM [facility] REPOSITORY TYPE CODE TESTS RESULT OUT OF REFERENCE UNITS RANGE LAB IFO Negative Immuno Negative FOB Result Comment: This test was developed and its performance characteristics determined by [facility]'s [facility] [place] ([facility]). It has not been cleared or approved by the FDA. [facility] is regulated under CLIA as qualified to perform high-complexity testing. This test is used for clinical purposes. It should not be regarded as investigational or for research. Performed By: #### IFOBT #### [facility] [address] [place], [place] [address] PROGRESS Observed: 08/23/2017 Status: COMPLETED Source: [place] 1:39 PM [facility] REPOSITORY HNO ID: [id number] Author: Zandra Zaidi Service: (none) Author Type: Pharmacy Customer Care Specialist Type: Progress Notes Filed: 08/23/2017 1:42 PM Note Text: The patient has been identified by name and date of : YES I have scheduled the patient for an appointment on 09/07/2017. The patient will report to the lab prior to the visit. I have pended the following lab orders: CMP CBC HgBA1c IFOBT PHMA Documentation 08/23/2017 Opts out of [facility] [facility] No Appointments Scheduled Scheduled PCP Appt DM2 with No SANDRINE Record Requested Opthy Appt Yes Appt Date 08/31/2017 DM2 with No Urine Alb Lab Ordered DM2 with No DFE Record Requested A1C > 8.9 Lab Ordered CRCS FOBT mailed Zandra Zaidi MA PROGRESS Observed: 08/23/2017 Status: COMPLETED Source: [place] 1:36 PM [facility] REPOSITORY HNO ID: [id number] Author: Zandra Zaidi Service: (none) Author Type: Pharmacy Customer Care Specialist Type: Progress Notes Filed: 08/23/2017 1:42 PM Note Text: PHMA TEAMLET DOCUMENTATION Provider Action/FYI: Patient has appointment scheduled, needs lab ordered, needs Foot and Eye exam, IFBOT PSR Action/FYI: Teamlet has identified patient by name and date of . Team: Ellen Draper, Zandra Zaidi MA, Veronica Coy MA, MAITE Rojas PSR, FELISA Fitch ? Last Office Visit:08/06/2017 ? Next Office Visit: 09/07/2017 ? Last BP/Labs: Blood Pressure: Last 3 Encounter BP Readings: Date: BP: 08/06/2017 116/62 07/14/2017 132/62 07/01/2017 114/62 Lipids: Cholesterol, Total (mg/dL) Date Value 06/02/2017 113 12/30/2016 206 HDL Cholesterol (mg/dL) Date Value 06/02/2017 34 12/30/2016 36 LDL Cholesterol (mg/dL) Date Value 06/02/2017 41 12/30/2016 112 Triglyceride (mg/dL) Date Value 06/02/2017 190 12/30/2016 291 HGB A1C: Lab Results Component Value Date HBA1C 9.4 06/02/2017 HBA1C 7.4 12/30/2016 HBA1C 8.1 09/09/2016 TSH: TSH (uU/mL) Date Value 06/02/2017 4.200 09/09/2016 3.770 ) Care Gap: DM - Needs dilated eye exam - HM overdue Last HGBA1C is NOT under 9% Plan: ? Confirm PCP / Status ? Type of appointment needed: Follow-up 09-07-17 ? Consultation Appointments: No patient outreach needed at this time ? Labs, HM and Immunization: Colon Cancer Screening Diabetic Eye Exam CBC CMP HgbA1c IFOBT Zandra Zaidi MA CNPTOUTREACH Observed: 08/23/2017 Status: COMPLETED Source: [place] 12:00 AM [facility] REPOSITORY Patient Outreach (FAMPWS) MICKY ROLDAN ([id number]) 1950 M Date Time Provider Department 08/23/17 ZANDRA ZAIDI) FAMPWS During your visit today, we recorded the following information about you: Zandra Zaidi MA 08/23/2017 1:42 PM Signed PHMA TEAMLET DOCUMENTATION Provider Action/FYI: Patient has appointment scheduled, needs lab ordered, needs Foot and Eye exam, IFBOT PSR Action/FYI: Teamlet has identified patient by name and date of . Team: Dr. Ellen, Zandra Zaidi MA, Veronica Coy MA, MAITE Rojas PSR, FELISA Fitch ? Last Office Visit:08/06/2017 ? Next Office Visit: 09/07/2017 ? Last BP/Labs: Blood Pressure: Last 3 Encounter BP Readings: Date: BP: 08/06/2017 116/62 07/14/2017 132/62 07/01/2017 114/62 Lipids: Cholesterol, Total (mg/dL) Date Value 06/02/2017 113 12/30/2016 206 HDL Cholesterol (mg/dL) Date Value 06/02/2017 34 12/30/2016 36 LDL Cholesterol (mg/dL) Date Value 06/02/2017 41 12/30/2016 112 Triglyceride (mg/dL) Date Value 06/02/2017 190 12/30/2016 291 HGB A1C: Lab Results Component Value Date HBA1C 9.4 06/02/2017 HBA1C 7.4 12/30/2016 HBA1C 8.1 09/09/2016 TSH: TSH (uU/mL) Date Value 06/02/2017 4.200 09/09/2016 3.770 ) Care Gap: DM - Needs dilated eye exam - HM overdue Last HGBA1C is NOT under 9% Plan: ? Confirm PCP / Status ? Type of appointment needed: Follow-up 09-07-17 ? Consultation Appointments: No patient outreach needed at this time ? Labs, HM and Immunization: Colon Cancer Screening Diabetic Eye Exam CBC CMP HgbA1c IFOBT MAITE Funk MA 08/23/2017 1:42 PM Signed The patient has been identified by name and date of : YES I have scheduled the patient for an appointment on 09/07/2017. The patient will report to the lab prior to the visit. I have pended the following lab orders: CMP CBC HgBA1c IFOBT PHMA Documentation 08/23/2017 Opts out of [facility] No Appointments Scheduled Scheduled PCP Appt DM2 with No SANDRINE Record Requested Opthy Appt Yes Appt Date 08/31/2017 DM2 with No Urine Alb Lab Ordered DM2 with No DFE Record Requested A1C > 8.9 Lab Ordered CRCS FOBT mailed Zandra Zaidi MA Allergies As of Date: 08/23/2017 Noted Allergy Reaction LANOLIN 02/15/2008 9 - Itching Date Reviewed: 08/06/2017 Reviewed by: Ellis De Luna - Fully Assessed Reason for Visit: PHMA/Care Gap Outreach [[id number]] Prescriptions as of 08/23/2017 Sig: HUMALOG MIX 75-25 KWIKPEN U-1* INJECT 23 UNITS SUBCUTANEOUSL* CLOPIDOGREL 75 MG TABLET Take 1 tablet by mouth once d* METFORMIN 500 MG TABLET Take 1 tablet by mouth twice * ROSUVASTATIN 5 MG TABLET Take 1 tablet by mouth daily * INSULIN LISPRO AND LISPRO PROT * Inject 25 Units subcutaneousl* METOPROLOL TARTRATE 25 MG TAB* Take 0.5 tablets by mouth twi* PEN NEEDLE, DIABETIC 31 GAUGE* Use with 75/25 twice daily LOSARTAN 25 MG TABLET Take 1 tablet by mouth once d* ACETAMINOPHEN 325 MG TABLET Take 2 tablets by mouth every* BLOOD SUGAR DIAGNOSTIC STRIPS Test blood sugar 3-4 times da* LEVOTHYROXINE 125 MCG TABLET TAKE 1 TABLET BY MOUTH ONCE D* MULTI VITAMIN ORAL Take by mouth. CURCUMIN MISC FRNHMTHYRMT-SXTQCADUP-DEI C-M* Take 1 capsule by mouth three* COMPOUNDED PRESCRIPTION Take 1 capsule by mouth twice* More... Problem List As Of Date 08/23/2017 Noted Resolved Idiopathic peripheral neuropathy [G60.9] Priority: A Pyoderma, unspecified [L08.0] INVALID FOR* Priority: C Other acne [L70.8] INVALID FOR* Priority: C Seborrheic dermatitis, unspecified [L21.9] INVALID FOR* Priority: C Other psoriasis [L40.8] INVALID FOR* Priority: C XEROSIS///SEBACEOUS GLAND DIS NEC [L73.8] INVALID FOR* Priority: C Other specified disease of nail [L60.8] INVALID FOR* Priority: C Other seborrheic keratosis [L82.1] INVALID FOR* Priority: C H/O balance disorder [Z87.898] Priority: B More... PVC (premature ventricular contraction) [I49.3] Priority: A Diabetic eye exam (HCC) [Z01.00, E11.9] INVALID FOR* Priority: A More... Dyslipidemia [E78.5] INVALID FOR*02/19/2014 Well adult exam [Z00.00] INVALID FOR* Priority: D More... Colon cancer screening [Z12.11] INVALID FOR* Acquired hypothyroidism [E03.9] INVALID FOR* Priority: A Mixed hyperlipidemia [E78.2] INVALID FOR* Priority: A Prostate cancer screening [Z12.5] INVALID FOR* Uncontrolled type 2 diabetes mellitus without c*INVALID FOR*06/04/2017 Priority: A Essential hypertension with goal blood pressure*INVALID FOR* Priority: A Ex-smoker [Z87.891] INVALID FOR* Priority: C More... Plantar fasciitis, left [M72.2] INVALID FOR* Priority: M Multiple lung nodules [R91.8] INVALID FOR* Priority: B More... Right-sided cerebrovascular accident (CVA) (HCC*INVALID FOR* Priority: A More... History of UT (myocardial infarction) [I25.2] INVALID FOR* Priority: A More... 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 Uncontrolled type 2 diabetes mellitus with diab*INVALID FOR* Priority: A Ischemic cerebrovascular accident (CVA) (HCC) [*INVALID FOR* Priority: A More... Encounter Status:Closed by ZANDRA ZAIDI on 08/23/17 ADULT EVALUATION - SP Observed: 08/09/2017 Status: F Source: [place] 6:09 PM [facility] [place] [facility] [address] [place] [address] [address] [place] [address] Fax REHABILITATION SERVICES INITIAL EVALUATION MR#: [id number] Acct: [id number] Name: MICKY ROLDAN Rep #: [id number] : 1950 66 From: Hetal Coombs Referring DrGege: Stefanie Agarwal MD Status: REG RCR Insurance: [employer] SELF [employer]Y [employer]URANCE History - History Date of Eval: 08/09/17 Medical Diagnosis (from RX): ischemic stroke Date of Onset of Diagnosis: 08/01/17 Previous speech therapy: Yes Results: Pt had ST evaluations at [facility] by [employer]. Pt had difficulty reading which is still chief complaint. Other Relevant Medical History/Diagnoses/Surgery: PMHx: concussion, stroke, CABG, HTN, dizziness, DMII. Pt is a 66 yr old male who was admitted to [facility] d/t difficulty in reading, symptoms like dyslexia. Symptoms began two day prior to admission. Pt c/o tunnel vision, lightheadedness, and headaches that could last for 4 hours. Symptoms would improve with meals. Pt had difficulty with understanding printed words, but words were not distorted. CT scan showed left posterior parieto-occipital hypodensity with acute infarct, subcutaneous soft tissue injury. Prior to CVA, pt had concussion which has resulted in dizziness and lightheadedness, CABG in fall of 2016, and possible TIA after surgery. 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 [employer] Right Hearing Abillity: Normal Left Hearing Abillity: Normal Visual Assistive Devices: Glasses Patients Living Arrangements: With Significant Other Patient Allergies - Allergies Allergies atorvastatin [From Lipitor] Adverse Reaction (Mild, Verified 08/01/17 10:03) mylgia lower leg pain lanolin Adverse Reaction (Unknown, Verified 08/01/17 10:03) Unknown CRIS - CRIS CRIS Administered: Yes CRIS: The Assessment of Language-Related Functional Activities (CRIS) consists of ten subtests, each of which assesses a different functional activity that are critical for safe independent functioning in the home environment. Each subtest requires the use of all language modalities as well as cognitive and motor skills. Each subtest also allows observance of multiple cognitive porcesses, which can help eliminate administering specialized tests in certain areas. Independent Functioning Ratings are identified to determine safe independent functioning in the home environment for two distinct age groups: (1) individuals < 65 years of age, and (2) individuals ages 65 years of age and up. Independent Functioning Rating (IFR) are reported as followed; 1= high probablility of independent functioning, 2= indication of need for some level of assistance on the task, requiring further exploration, 3= high probability that this individual is not able to function independently on this task. The results of the CRIS are as followed: Date: 08/09/17 - Telling Time Percent: 100 IFR: 1; pt had no difficulty with reading time - Addressing an Envelope Percent: 100 IFR: 1; pt addressed envelope without difficulty - Solving Daily Math Problems Percent: 90 IFR: 1; pt missed one problem as pt read hour as minute - Writing a Check AND Balancing a Checkbook Percent: 80 IFR: 1; pt wrote incorrect amount on check both numerically and written out - Understanding Medicine Labels Percent: 90 IFR: 1; pt read time of day as AM instead of PM. - CRIS Comments Need for continued assessment Pt is able to read information in a choppy format and not fluid. 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 Pt needs to be able to identify addresses correctly in order to properly sort mail. Continued assessment is needed in order to accurately track reading improvement and accuracy for answering written questions. Plan - Plan Plan: Pt needs to be able to read fluently and accurately in order to return to work at the [employer]. - Frequency Frequency: 1x/Week Duration: 4 Weeks - Prognosis Prognosis: Good - Goal #1-5 Goal #1: Pt will read a paragraph aloud accurately and answer written questions with 90% accuracy in 3 consecutive sessions. Goal #2: Pt will read 200-250 wpm in a time span of no more than 2 minutes with 90% accuracy in 3 consecutive sessions. Education - Patient has Indicated that the Following Other Educational Needs: reading fluently - Patient Instruction Patient Education: Diagnosis, Treatment Plan, Goals Person Taught: Patient, Significant Other Teaching Method: Discussion Response to teaching: Teaching Completed <Electronically signed by Hetal Coombs > 08/09/17 1885 CC: Stefanie Agarwal MD; Ellis De Luna MD AAK Signed For Medicare only, by signing this I certify the plan of care. Physicians Signature Date PROGRESS Observed: 08/06/2017 Status: COMPLETED Source: [place] 11:24 AM [facility] REPOSITORY HNO ID: [id number] Author: Ellis De Luna Service: (none) Author Type: Physician Type: Progress Notes Filed: 08/06/2017 12:12 PM Note Text: Chief Complaint Patient presents with: Hospital Follow Up: stroke; in hospital 08/01AND 08/02 [facility] Micky Roldan is a 66 year old male who presents here today for Hospital Discharge Follow up.. Patient with Hx as reviewed and documented below. Patient presented to [facility] ER on 08/01/2017 with c/o tunnel vision that may have started 2 days prior. Initially he thought it may of been due to low BS and with eating improved however he started to notice difficulty with reading words. Labs were ok but CT reveled a left posterior parietal-occipital hypodensity. Patient was therefore admitted. CTA neck showed not significant carotid disease. X-ray of chest was unremarkable. MRI brain showed Acute left temporal infarct. 2D echo showed EF=53% mild UT and TI, no clots. Patient's ASA was stopped and started on plavix 75 mg a day. Was discharged on 08/02/2017 to f/u with outpatient speech Tx and f/u with Dr. Boyd in 2 weeks. Patient has appt for speech therapy set up and needs to set up the appt with Dr. Glass. He never had any weakness on either side or facial droop. Still having the problems with reading but no new symptoms or progression. Is on the plavix. Past medical history, appointments, medications, allergies reviewed. 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 - NEVUS///BENIGN OLEGARIO SKIN TRUNK 09/26/2007 - Other psoriasis 09/26/2007 - Other specified idiopathic peripheral neuropathy - PRURITIC DISORDER NOS 09/26/2007 - PVC (premature ventricular contraction) - PYODERMA NOS 09/26/2007 - SEBORRHEIC DERMATITIS NOS 09/26/2007 - SEBORRHEIC KERATOSIS NOS 12/16/2007 - Shoulder pain 05/05/2013 - SOLAR LENGINES////DYSCHROMIA OTHER 12/16/2007 - Type II or unspecified type diabetes mellitus without mention of complication, not stated as uncontrolled - Unspecified hypothyroidism Previous Surgical History PAST SURGICAL HISTORY Procedure Laterality Date - 2D ECHO (EXEP) 01/2017 EF=50-55%, with nl function - 2D ECHO (EXEP) 08/02/2017 EF=53%, mild infante dysf, mild UT and TI - NONE - PAST SURGICAL HISTORY OF 01/22/2017 CABG x3 Family History FAMILY HISTORY Problem Relation Age of Onset - toxic shock [Other] [OTHER] Mother - None Father - Thyroid Sister Patient Allergies ALLERGIES Allergen Reactions - Lanolin Itching Current Medications Current Outpatient Prescriptions on File Prior to Visit: metFORMIN (GLUCOPHAGE) 500 mg tablet Take 1 tablet by mouth twice daily. rosuvastatin (CRESTOR) 5 mg tablet Take 1 tablet by mouth daily at bedtime. insulin 75/25 lispro protamine/lispro units/mL (HUMALOG MIX 75-25 KWIKPEN) 100 unit/mL (75-25) inpn Inject 25 Units subcutaneously twice daily with meals. metoprolol tartrate, short acting, (LOPRESSOR) 25 mg tablet Take 0.5 tablets by mouth twice daily. insulin needles, DISPOSABLE, (PEN NEEDLE) 31 gauge x 5/16 ndle Use with 75/25 twice daily losartan (COZAAR) 25 mg tablet Take 1 tablet by mouth once daily. Per Dr. Vance, Cardiology acetaminophen (TYLENOL) 325 mg tablet Take 2 tablets by mouth every 6 hours as needed for Pain. blood sugar diagnostic (FREESTYLE LITE STRIPS) test strip Test blood sugar 3-4 times daily levothyroxine (SYNTHROID) 125 mcg tablet TAKE 1 TABLET BY MOUTH ONCE DAILY. TAKE ON EMPTY STOMACH. FOR THYROID. MULTIVIT-MINERALS/FERROUS FUM (MULTI VITAMIN ORAL) Take by mouth. TURMERIC (CURCUMIN MISC) Gdlzfqidbkx-Ovkyutcyk-Ucm C-Mn (GLUCOSAMINE CHONDROITIN MAXSTR) 500-400 mg cap Take 1 capsule by mouth three times daily. COMPOUNDED PRESCRIPTION Take 1 capsule by mouth twice daily. Glucosamine 1500mg/ Chondroitin 800mg/MSM 750mg/ Vit D3 - 2000IU aspirin, enteric coated (ASPIRIN, ENTERIC COATED) 81 mg EC tablet Take 1 tablet by mouth once daily. Take with food. No current facility-administered medications on file prior to visit. Social History Social History Marital status: Spouse name: Years of education: Number of children: Social History Main Topics Smoking status: Former Smoker Packs/day: 0.00 Years: 0.00 Quit date: 12/20/1997 Smokeless tobacco: Former User Types: Snuff, Chew Alcohol use: No Drug use: No Review of Symptoms REVIEW OF SYSTEMS RESPIRATORY: Negative for hemoptysis, wheezing, COPD, dyspnea or shortness of breath. Stafford a cold with a slight cough and when he coughs his chest hurts some. CARDIOVASCULAR: Negative for chest pain, leg swelling, hypertension, CHF or palpitations Jagdeep: Has had some headache's with the concussion but improved. No seizures or tremors. EXAM: BP 116/62 (BP Site: Right Arm, BP Position: Sitting, BP Cuff Size: Large Adult) Pulse 64 Resp 18 Wt 104.9 kg (231 lb 3.2 oz) BMI 31.23 kg/m? General Appearance: Well appearing, alert, in no acute distress, well-hydrated, well nourished., Overweight. Eyes: Anicteric sclera. Pupils are equally round and reactive to light. Extraocular movements are intact. . Oropharynx: Lips, mucosa, and tongue normal, teeth and gums normal, oropharynx normal. Neck: Supple, no adenopathy; thyroid symmetric, normal size, no bruits. Lungs: Lungs clear to auscultation. No wheezing, rhonchi, rales. Heart: RRR without murmur, gallop, or rubs. No ectopy. Abdomen: Normal abdominal exam, Abdomen soft, non-tender. Bowel sounds normal. No masses, organomegaly. Extremities: No deformities, edema Musculoskeletal: Muscular strength intact, Peripheral Pulses: Normal. Neurologic: Gait normal. Reflexes normal and symmetric. Sensation to light touch and crainal nerves 2-12 intact.. Health Maintenance List FECAL OCCULT BLOOD due on 06/26/2015 DILATED RETINAL EXAM due on 11/10/2016 DTAP,TDAP,TD(2 - Td) due on 12/15/2016 HBA1C due on 12/03/2017 PNEUMOVAX AGE 65 AND OVER WITH 5YR LOOKBACK(1) due on 04/26/2018 URINE ALBUMIN CREATININE RATIO due on 06/02/2018 LDL due on 06/02/2018 DIABETIC FOOT EXAM due on 07/01/2018 PROSTATE CANCER SCREENING DISCUSSION Completed ADULT PREVNAR-13 Completed INFLUENZA Completed HEPATITIS C SCREENING Completed Data reviewed Hospital documents. A/P ASSESSMENT/PLAN: 1. Ischemic cerebrovascular accident (CVA) (HCC) - ICD9: 434.91, ICD10: I63.9 (primary diagnosis) - Patient to proceed with speech Tx and f/u with Dr. Glass. - Cont plavix. 2. Uncontrolled type 2 diabetes mellitus with diabetic neuropathy, with long-term current use of insulin (HCC) - ICD9: 250.62, 357.2, V58.67, ICD10: E11.40, Z79.4, E11.65 Awaiting future labs - Continue current medications - BP goal of <130/80 - LDL goal of <100 - CONSULT TO DIABETES EDUCATION: [facility] program Keep appt with me in mid August Time with patient face to face was 25 min Ellis De Luna MD CNOV Observed: 08/06/2017 Status: COMPLETED Source: [place] 11:20 AM [facility] REPOSITORY Office Visit (FAMPWS) MICKY ROLDAN ([id number]) 1950 M Date Time Provider Department 08/06/17 11:20 AM ELLIS DE LUNA FAMPWS During your visit today, we recorded the following information about you: Pulse Respiration Blood pressure Weight 64/minute 18/minute 116/62 104.9 kg Ellis De Luna MD 08/06/2017 12:12 PM Signed Chief Complaint Patient presents with: Hospital Follow Up: stroke; in hospital 08/01AND 08/02 [facility] Micky Roldan is a 66 year old male who presents here today for Hospital Discharge Follow up.. Patient with Hx as reviewed and documented below. Patient presented to [facility] ER on 08/01/2017 with c/o tunnel vision that may have started 2 days prior. Initially he thought it may of been due to low BS and with eating improved however he started to notice difficulty with reading words. Labs were ok but CT reveled a left posterior parietal-occipital hypodensity. Patient was therefore admitted. CTA neck showed not significant carotid disease. X-ray of chest was unremarkable. MRI brain showed Acute left temporal infarct. 2D echo showed EF=53% mild UT and TI, no clots. Patient's ASA was stopped and started on plavix 75 mg a day. Was discharged on 08/02/2017 to f/u with outpatient speech Tx and f/u with Dr. Boyd in 2 weeks. Patient has appt for speech therapy set up and needs to set up the appt with Dr. Glass. He never had any weakness on either side or facial droop. Still having the problems with reading but no new symptoms or progression. Is on the plavix. Past medical history, appointments, medications, allergies reviewed. 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 - NEVUS///BENIGN OLEGARIO SKIN TRUNK 09/26/2007 - Other psoriasis 09/26/2007 - Other specified idiopathic peripheral neuropathy - PRURITIC DISORDER NOS 09/26/2007 - PVC (premature ventricular contraction) - PYODERMA NOS 09/26/2007 - SEBORRHEIC DERMATITIS NOS 09/26/2007 - SEBORRHEIC KERATOSIS NOS 12/16/2007 - Shoulder pain 05/05/2013 - SOLAR LENGINES////DYSCHROMIA OTHER 12/16/2007 - Type II or unspecified type diabetes mellitus without mention of complication, not stated as uncontrolled - Unspecified hypothyroidism Previous Surgical History PAST SURGICAL HISTORY Procedure Laterality Date - 2D ECHO (EXEP) 01/2017 EF=50-55%, with nl function - 2D ECHO (EXEP) 08/02/2017 EF=53%, mild infante dysf, mild UT and TI - NONE - PAST SURGICAL HISTORY OF 01/22/2017 CABG x3 Family History FAMILY HISTORY Problem Relation Age of Onset - toxic shock [Other] [OTHER] Mother - None Father - Thyroid Sister Patient Allergies ALLERGIES Allergen Reactions - Lanolin Itching Current Medications Current Outpatient Prescriptions on File Prior to Visit: metFORMIN (GLUCOPHAGE) 500 mg tablet Take 1 tablet by mouth twice daily. rosuvastatin (CRESTOR) 5 mg tablet Take 1 tablet by mouth daily at bedtime. insulin 75/25 lispro protamine/lispro units/mL (HUMALOG MIX 75-25 KWIKPEN) 100 unit/mL (75-25) inpn Inject 25 Units subcutaneously twice daily with meals. metoprolol tartrate, short acting, (LOPRESSOR) 25 mg tablet Take 0.5 tablets by mouth twice daily. insulin needles, DISPOSABLE, (PEN NEEDLE) 31 gauge x 5/16 ndle Use with 75/25 twice daily losartan (COZAAR) 25 mg tablet Take 1 tablet by mouth once daily. Per Dr. Vance, Cardiology acetaminophen (TYLENOL) 325 mg tablet Take 2 tablets by mouth every 6 hours as needed for Pain. blood sugar diagnostic (FREESTYLE LITE STRIPS) test strip Test blood sugar 3-4 times daily levothyroxine (SYNTHROID) 125 mcg tablet TAKE 1 TABLET BY MOUTH ONCE DAILY. TAKE ON EMPTY STOMACH. FOR THYROID. MULTIVIT-MINERALS/FERROUS FUM (MULTI VITAMIN ORAL) Take by mouth. TURMERIC (CURCUMIN MISC) Qughbkpglzk-Heeeywyfp-Bco C-Mn (GLUCOSAMINE CHONDROITIN MAXSTR) 500-400 mg cap Take 1 capsule by mouth three times daily. COMPOUNDED PRESCRIPTION Take 1 capsule by mouth twice daily. Glucosamine 1500mg/ Chondroitin 800mg/MSM 750mg/ Vit D3 - 2000IU aspirin, enteric coated (ASPIRIN, ENTERIC COATED) 81 mg EC tablet Take 1 tablet by mouth once daily. Take with food. No current facility-administered medications on file prior to visit. Social History Social History Marital status: Spouse name: Years of education: Number of children: Social History Main Topics Smoking status: Former Smoker Packs/day: 0.00 Years: 0.00 Quit date: 12/20/1997 Smokeless tobacco: Former User Types: Snuff, Chew Alcohol use: No Drug use: No Review of Symptoms REVIEW OF SYSTEMS RESPIRATORY: Negative for hemoptysis, wheezing, COPD, dyspnea or shortness of breath. Stafford a cold with a slight cough and when he coughs his chest hurts some. CARDIOVASCULAR: Negative for chest pain, leg swelling, hypertension, CHF or palpitations Jagdeep: Has had some headache's with the concussion but improved. No seizures or tremors. EXAM: BP 116/62 (BP Site: Right Arm, BP Position: Sitting, BP Cuff Size: Large Adult) Pulse 64 Resp 18 Wt 104.9 kg (231 lb 3.2 oz) BMI 31.23 kg/m? General Appearance: Well appearing, alert, in no acute distress, well-hydrated, well nourished., Overweight. Eyes: Anicteric sclera. Pupils are equally round and reactive to light. Extraocular movements are intact. . Oropharynx: Lips, mucosa, and tongue normal, teeth and gums normal, oropharynx normal. Neck: Supple, no adenopathy; thyroid symmetric, normal size, no bruits. Lungs: Lungs clear to auscultation. No wheezing, rhonchi, rales. Heart: RRR without murmur, gallop, or rubs. No ectopy. Abdomen: Normal abdominal exam, Abdomen soft, non-tender. Bowel sounds normal. No masses, organomegaly. Extremities: No deformities, edema Musculoskeletal: Muscular strength intact, Peripheral Pulses: Normal. Neurologic: Gait normal. Reflexes normal and symmetric. Sensation to light touch and crainal nerves 2-12 intact.. Health Maintenance List FECAL OCCULT BLOOD due on 06/26/2015 DILATED RETINAL EXAM due on 11/10/2016 DTAP,TDAP,TD(2 - Td) due on 12/15/2016 HBA1C due on 12/03/2017 PNEUMOVAX AGE 65 AND OVER WITH 5YR LOOKBACK(1) due on 04/26/2018 URINE ALBUMIN CREATININE RATIO due on 06/02/2018 LDL due on 06/02/2018 DIABETIC FOOT EXAM due on 07/01/2018 PROSTATE CANCER SCREENING DISCUSSION Completed ADULT PREVNAR-13 Completed INFLUENZA Completed HEPATITIS C SCREENING Completed Data reviewed Hospital documents. A/P ASSESSMENT/PLAN: 1. Ischemic cerebrovascular accident (CVA) (HCC) - ICD9: 434.91, ICD10: I63.9 (primary diagnosis) - Patient to proceed with speech Tx and f/u with Dr. Glass. - Cont plavix. 2. Uncontrolled type 2 diabetes mellitus with diabetic neuropathy, with long-term current use of insulin (HCC) - ICD9: 250.62, 357.2, V58.67, ICD10: E11.40, Z79.4, E11.65 Awaiting future labs - Continue current medications - BP goal of <130/80 - LDL goal of <100 - CONSULT TO DIABETES EDUCATION: [facility] program Keep appt with me in mid August Time with patient face to face was 25 min Ellis De Luna MD Referring Provider: ELLIS DE LUNA [[id number]] Allergies As of Date: 08/06/2017 Noted Allergy Reaction LANOLIN 02/15/2008 9 - Itching Date Reviewed: 08/06/2017 Reviewed by: Ellis De Luna - Fully Assessed Reason for Visit: Hospital Follow Up [177] Cmt: stroke; in hospital 08/01AND 08/02 Primary Visit Diagnosis:Ischemic cerebrovascular accident (CVA) ([facility]) [I63.9] Other Visit Diagnosis:Uncontrolled type 2 diabetes mellitus with diabetic neuropathy, with long-term current use of insulin ([facility]) [E11.40, Z79.4, E11.65] Order(s):clopidogrel (PLAVIX) 75 mg tabletTake 1 tablet by mouth once daily.Disp: 30 tabletRfl: 0 CONSULT TO DIABETES EDUCATION [[id number]] Order #: [id number]: 1 Prescriptions as of 08/06/2017 Sig: METFORMIN 500 MG TABLET Take 1 tablet by mouth twice * ROSUVASTATIN 5 MG TABLET Take 1 tablet by mouth daily * INSULIN LISPRO AND LISPRO PROT * Inject 25 Units subcutaneousl* METOPROLOL TARTRATE 25 MG TAB* Take 0.5 tablets by mouth twi* PEN NEEDLE, DIABETIC 31 GAUGE* Use with 75/25 twice daily LOSARTAN 25 MG TABLET Take 1 tablet by mouth once d* ACETAMINOPHEN 325 MG TABLET Take 2 tablets by mouth every* BLOOD SUGAR DIAGNOSTIC STRIPS Test blood sugar 3-4 times da* LEVOTHYROXINE 125 MCG TABLET TAKE 1 TABLET BY MOUTH ONCE D* MULTI VITAMIN ORAL Take by mouth. CURCUMIN MISC FPSSJYIBPMR-YQALDOQWN-UPZ C-M* Take 1 capsule by mouth three* COMPOUNDED PRESCRIPTION Take 1 capsule by mouth twice* CLOPIDOGREL 75 MG TABLET Take 1 tablet by mouth once d* Medication notes this encounter ASPIRIN 81 MG TABLET,DELAYED RELEASE >> Lidia Boateng 08/06/2017 11:02 AM >> LIDIA BOATENG August 06, 2017 11:02 AM Patient no longer taking. >> Ellis De Luna MD 08/06/2017 11:42 AM swithced to Plavix More... Problem List As Of Date 08/06/2017 Noted Resolved Idiopathic peripheral neuropathy [G60.9] Priority: A Pyoderma, unspecified [L08.0] INVALID FOR* Priority: C Other acne [L70.8] INVALID FOR* Priority: C Seborrheic dermatitis, unspecified [L21.9] INVALID FOR* Priority: C Other psoriasis [L40.8] INVALID FOR* Priority: C XEROSIS///SEBACEOUS GLAND DIS NEC [L73.8] INVALID FOR* Priority: C Other specified disease of nail [L60.8] INVALID FOR* Priority: C Other seborrheic keratosis [L82.1] INVALID FOR* Priority: C H/O balance disorder [Z87.898] Priority: B More... PVC (premature ventricular contraction) [I49.3] Priority: A Diabetic eye exam (HCC) [Z01.00, E11.9] INVALID FOR* Priority: A More... Dyslipidemia [E78.5] INVALID FOR*02/19/2014 Well adult exam [Z00.00] INVALID FOR* Priority: D More... Colon cancer screening [Z12.11] INVALID FOR* Acquired hypothyroidism [E03.9] INVALID FOR* Priority: A Mixed hyperlipidemia [E78.2] INVALID FOR* Priority: A Prostate cancer screening [Z12.5] INVALID FOR* Uncontrolled type 2 diabetes mellitus without c*INVALID FOR*06/04/2017 Priority: A Essential hypertension with goal blood pressure*INVALID FOR* Priority: A Ex-smoker [Z87.891] INVALID FOR* Priority: C More... Plantar fasciitis, left [M72.2] INVALID FOR* Priority: M Multiple lung nodules [R91.8] INVALID FOR* Priority: B More... Right-sided cerebrovascular accident (CVA) ([facility]*INVALID FOR* Priority: A More... History of UT (myocardial infarction) [I25.2] INVALID FOR* Priority: A More... 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 Uncontrolled type 2 diabetes mellitus with diab*INVALID FOR* Priority: A Ischemic cerebrovascular accident (CVA) ([facility]) [*INVALID FOR* Priority: A More... Prescriptions ordered this encounter Disp Refills Start End CLOPIDOGREL 75 MG TABLET 30 t* 0 08/06/2017 Class: Med Update Route: ORAL Sig: Take 1 tablet by mouth once daily. Medications Discontinued During This Encounter aspirin, enteric coated (ASPIRIN, EN* 02/25/2017 08/06/2017 Class: Med Update Route: ORAL Sig: Take 1 tablet by mouth once daily. Take with food. Disc: Discontinued by another Health Care Provider Disposition: Return if symptoms worsen or fail to improve. Follow-up and Disposition History Recorded Encounter Status:Closed by ELLIS DE LUNA on 08/06/17 12 LEAD ELECTROCARDIOGRAM Observed: 08/05/2017 Status: F Source: [place] 1:14 PM [facility] [place] [facility] Cardiovascular Services [address] [place] [address] 12 Lead EKG 08/01/17 1518 MR#: [id number] Acct: [id number] Name: MICKY ROLDAN Rep #: [id number] : 1950 66 From: Wali Milton MD Attending Dr: Stefanie Agarwal MD Status: DIS IN Ordering Dr: Sameer Houston MD Date: 08/01/17 Location: [facility] Sex: M C Admitted: 08/01/17 Test Reason : Blood Pressure : / mmHG Vent. Rate : 064 BPM Atrial Rate : 064 BPM P-R Int : 172 ms QRS Dur : 138 ms QT Int : 458 ms P-R-T Axes : 022 -64 115 degrees QTc Int : 472 ms Normal sinus rhythm with sinus arrhythmia Right bundle branch block Left anterior fascicular block Bifascicular block T wave abnormality, consider lateral ischemia Abnormal ECG Confirmed by YOAN WILLETT, WALI ([id number]), scientific publications editor JESSIKA BUSTILLO ([id number]) on 08/05/2017 1:14:07 PM Referred By: CELSO Confirmed By:WALI MILTON MD 08/05/17 1314 Date Wali Milton MD CC: Stefanie Agarwal MD; Ellis De Luna MD; Sameer Houston MD Signed 12 LEAD ELECTROCARDIOGRAM Observed: 08/03/2017 Status: F Source: [place] 1:27 PM [facility] [place] [facility] Cardiovascular Services [address] [place] [address] 12 Lead EKG 08/01/17 1042 MR#: [id number] Acct: [id number] Name: MICKY ROLDAN P Rep #: [id number] : 1950 66 From: Baron Veliz MD Attending Dr: Stefanie Agarwal MD Status: DIS IN Ordering Dr: Marija Saenz MD Date: 08/01/17 Location: [facility] Sex: M C Admitted: 08/01/17 Test Reason : NEURO Blood Pressure : / mmHG Vent. Rate : 062 BPM Atrial Rate : 062 BPM P-R Int : 182 ms QRS Dur : 138 ms QT Int : 442 ms P-R-T Axes : 021 -58 131 degrees QTc Int : 448 ms Normal sinus rhythm Right bundle branch block Left anterior fascicular block Bifascicular block T wave abnormality, consider lateral ischemia Abnormal ECG Confirmed by BARON VELIZ MD ([id number]), scientific publications editor JESSIKA BUSTILLO ([id number]) on 08/03/2017 1:27:22 PM Referred By: NILDA Confirmed By:BARON VELIZ MD 08/03/17 1327 Date Baron Veliz MD CC: Marija Saenz MD; Stefanie Agarwal MD; Ellis De Luna MD Signed CONSULTATION Observed: 08/03/2017 Status: F Source: [place] 10:22 AM [facility] [place] [facility] Medical Records Department [address] [place] [address] Consultation 08/02/17 1005 MR#: [id number] Acct: [id number] Name: MICKY ROLDAN P Rep #: [id number] : 1950 66 From: Nacho Glass MD PCP: Ellis De Luna MD Status: DIS IN Y [id number] Reason for Consult Date of Consultation: 08/02/17 Reason for Consultation: cva History of Present Illness: The patient is a 66 year old M who on wednesday afternoon, 3 days ago noted an event which he feels was similar to a low blood sugar event, described at weakness, which resolved after he ate some food, and this event resolved after a number of hours. now he notes he cant read. came to hospital yesterday am because of persistant difficulty reading which he felt would interfere with his work at the [employer]. history of cabg, dm, hypothyroid. quit tob 20yrs. diagnosed with willian, not yet on cpap. experienced a concusion at work 07/03/17, no clear loss of consciousness. reports still not back to normal since this event, reports dizzy still. apparently the squad was called after his concussion and was hospitalized for 4 [facility] at [facility], no procedures. takes asa daily since his cabg in january. per admit h AND p:The patient is a 66 year old M with history significant of coronary artery disease status post three-vessel CABG in January 2017 came to ER with difficulty in reading since last Wednesday 2 days ago. Patient further said he gets an episode where he feels like tunnel vision, lightheadedness and headache that lasted for about 4 hours improves with eating. He also has difficulty in understanding the printed words although words looks fine with no distorted images. No problem in understanding spoken language/speech but he feels a little slow in his speech but no slurring or stuttering. No focal weakness or numbness or tingling. No loss of control of bladder or bowel function. Patient said he had TIA after 2 weeks of triple bypass surgery in February 2017 which recovered with no residual deficit Past Medical History Past Medical History (Chronic Problems): Chronic Problems (Last Updated 03/18/17 @ 10:35 by Jesús Hensley, MARIO-C) Dizziness (Chronic) Essential (primary) hypertension (Chronic) Atherosclerosis of chitina coronary artery of chitina heart without angina pectoris (Chronic) CABG- THRASHER to LAD, reverse SVG to post lateral, reverse SVG to OM 01/21/2017 Hyperlipidemia (Chronic) Diabetes mellitus (Chronic) Thyroid disorder (Chronic) Allergies atorvastatin [From Lipitor] Adverse Reaction (Mild, Verified 08/01/17 10:03) mylgia lower leg pain lanolin Adverse Reaction (Unknown, Verified 08/01/17 10:03) Unknown Home Medications: Ambulatory Orders Medication Instructions Recorded Levothyroxine [Synthroid] 125 mcg PO DAILY 01/19/17 Multivitamin with Iron 1 ea PO DAILY 01/19/17 Surgical History: no surgical history Smoking Status: Former smoker - *Family History Sibling History Items: Heart Disease - UT Maternal History Items: No pertinent history Paternal History Items: No pertinent history Review of Systems Constitutional: Denies: Chills, Fever, Weight Change HEENT: Denies: Head Aches, Sinus Congestion, Sinus Drainage Cardiovascular: Denies: Chest Pain, Palpitations Respiratory: Denies: Cough, Shortness of breath at rest, Sputum production Gastrointestinal: Denies: Abdominal Pain, Nausea, Vomiting Genitourinary: Denies: Dysuria Musculoskeletal: Denies: Joint Pain, Joint Tenderness Skin: Denies: Rash, Wounds Neurological: Denies: Numbness, Tingling, Focal weakness Psychiatric: Denies: Anxiety, Depression, Homicidal Ideations, Suicidal Ideations Hematologic/ Lymphatic: Denies: Easy Bruising, Easy Bleeding Patient Problems: Active and Suspected Problems (Last Updated 03/18/17 @ 10:35 by Jesús Hensley CORE STRIPPER-C) Ischemic stroke (Acute) - Physical Exam General: Alert, Oriented x3, Cooperative HEENT: Atraumatic, PERRLA, EOMI, Normocephalic Neck: Supple, No JVD, Negative Carotid Bruits Lungs: Clear to auscultation, Normal air movement Cardiovascular: Regular rate, No murmurs Abdomen: Bowel Sounds Present, Soft, Non Tender Extremities: No edema, Capillary Refill Less than 3 Seconds Skin: No rashes, No breakdown Musculoskeletal: No Tenderness to Palpation of Joints or Extremities Neurological: Cranial nerves II-XII grossly intact Psych/Mental Status: Normal Affect, Appropriate Vital Signs Temp Pulse Resp BP Pulse Ox 36.6 C 73 18 147/78 H 96 08/02/17 07:00 08/02/17 07:00 08/02/17 07:00 08/02/17 07:00 08/02/17 07:00 Oxygen Delivery Method Room Air Weight: 104.372 kg Body Mass Index (BMI) 30.3 Intake and Output for Last 24 Hours Intake Total 1050 / 1050 852 / 852 Balance 1050 / 1050 852 / 852 Laboratory Tests Past 24 Hrs Sodium 143 Potassium 4.1 Chloride 107 Sodium Potassium Chloride Carbon Dioxide Anion Gap BUN Creatinine Estim Creat Clear Calc Est GFR (MDRD) Af Amer POC Glucose POC Glucose 104 125 H 183 H mri reviewed, acute posterior left mca infarct cta reviewed, no significant stenosis Assessment/Plan Active and Suspected Problems (Last Updated 03/18/17 @ 10:35 by SUKI Light) Ischemic stroke (Acute) left mca distribution infarct leading to alexia without agraphia, improved change asa to plavix echo tele speech therapy needs cpap as outpt bp/bs control cant tolerate statins 08/03/17 1022 <Electronically signed by Nacho Glass MD> Date Nacho Glass MD Cosigner Signature (if applicable): Date CC: Medhat Yadav MD; Ellis De Luna MD Signed DISCHARGE SUMMARY Observed: 08/03/2017 Status: F Source: [place] 7:27 [facility] Medical Records Department [address] [place] [address] Discharge Summary 08/02/17 1202 MR#: [id number] Acct: [id number] Name: MICKY ROLDAN Rep #: [id number] : 1950 66 From: Stefanie Agarwal MD PCP: Ellis De Luna MD Status: DIS IN Y Location: [place] [address] Discharge Date and Diagnosis Date of Admission: 08/01/17 Date of Discharge: 08/03/17 - Primary Discharge Diagnosis Active and Suspected Problems (Last Updated 03/18/17 @ 10:35 by SUKI Light) Ischemic stroke (Acute) - Secondary Discharge Diagnosis Chronic Problems (Last Updated 03/18/17 @ 10:35 by SUKI Light) Dizziness (Chronic) Essential (primary) hypertension (Chronic) Atherosclerosis of chitina coronary artery of chitina heart without angina pectoris (Chronic) CABG- THRASHER to LAD, reverse SVG to post lateral, reverse SVG to OM 01/21/2017 Hyperlipidemia (Chronic) Diabetes mellitus (Chronic) Thyroid disorder (Chronic) Hospital Course and Treatment Imaging Results: 08/02/17 06:58 Brain without Contrast [MRI] Urgent Consultations 08/01/17 15:38 Consult: Onc/Wound/subassemblies wirer Routine Comment: Reason for Consult:: area to back of head, recent head injury at work (07/03/16) Neurology - Dr. Glass Operations: None Procedures: None Summary of Care Provided: 66 year old M with history significant of coronary artery disease status post three-vessel CABG in January 2017, attention, type 2 DM admitted with difficulty in reading since last 2 days prior to admission. He also described a feeling of tunnel vision, lightheadedness and headache that lasted for about 4 hours and was improved with eating. He also has difficulty in understanding the printed words although words looks fine with no distorted images. No problem in understanding spoken language/speech but he feels a little slow in his speech but no slurring or stuttering. No focal weakness or numbness or tingling. No loss of control of bladder or bowel function. His initial CT scan of the brain showed left posterior parieto- occipital hypodensity most concerning for acute infarct,subcutaneous soft tissue injury. He was admitted to the telemetry bed with no events. 2D echo was done that showed no valvular lesions. HbA1c was 8.8. Patient's lipid profile showed total cholesterol 131, triglycerides 134, LDL 63, HDL 41. Patient is reported to be intolerant to statins. He was seen by neurology, recommend a switch from aspirin to Plavix. Patient will need an outpatient CPAP machine. He will also be followed up in the outpatient skilled speechlanguage intervention to further assess reading, language, and cognition if it persists. Discharge Diet: Low fat/ Low Cholesterol, 2000 mg Sodium Diet, Carb Control Diet Discharge Activity: Return to Normal Activity Home Medications: Medications to take at Discharge Levothyroxine [Synthroid] 125 mcg PO DAILY 01/19/17 Multivitamin with Iron [Multivitamins with Iron] 1 ea PO DAILY 01/19/17 metformin 500 mg tablet 500 mg PO BID 03/19/17 metoprolol tartrate 25 mg tablet 12.5 mg PO BID #90 tab 06/24/17 losartan 25 mg tablet 25 mg PO QDAY 06/28/17 Clopidogrel Bisulfate [Plavix] 75 mg PO DAILY #30 tab 08/02/17 Insulin Lispro Protamin/Lispro [Humalog Mix 75-25 Kwikpen] 30 unit SC BID #0 ml 08/02/17 Following Prescrptions Were Given to Patient: Clopidogrel Bisulfate [Plavix] 75 mg PO DAILY #30 tab Primary Care Physician: Ellis De Luna MD [Primary Care Provider] - Please follow up with your Primary Care Physician in: within 2 weeks Please Follow Up With: Nacho Glass MD When: within 2 weeks Disposition: Home Minutes spent on discharge:: 40 Patient Condition:: Stable Medical Necessity - Tobacco Use Smoking Status: Former smoker Meaningful Use Info Meaningful Use Diagnoses (Choose all that apply): Ischemic CVA - CVA Therapy Assessed for PT,OT and/or ST?: Yes - Ischemic Stroke Antithrombotic order at d/c?: No Reason antithrombotic not ordered: Treatment not Indicated Dx of Atrial fib/flutter?: No Anticoagulant at discharge?: No Reason anticoagulant not ordered: Treatment not Indicated Statins at discharge?: No Reason Statin not ordered: Drug Intolerance Primary Dx Acute Ischemic CVA?: Yes IV tPA ordered during stay?: No Reason IV t-PA not ordered: Treatment not Indicated Code Visit Inpatient E AND M: [id number] Disch Hosp 08/03/17 0727 <Electronically signed by Stefanie Agarwal MD> Date Stefanie Agarwal MD Cosigner Signature (if applicable): Date CC: Stefanie Agarwal MD; Ellis De Luna MD Signed ECHOCARDIOGRAM COMPLETE Observed: 08/02/2017 Status: F Source: [place] 3:33 PM [facility] [place] [facility] Cardiovascular Services [address] [place] [address] Echo Complete 08/02/17 1427 MR#: [id number] Acct: [id number] Name: MICKY ROLDAN Rep #: [id number] : 1950 66 From: Baron Veliz MD Attending Dr: Stefanie Agarwal MD Status: ADM IN Ordering Dr: Sameer Houston MD Date: 08/01/17 Location: PCU Sex: M C Admitted: 08/01/17 Reason For Study: TIA/CVA Procedure This was a 2D Doppler, Color Flow transthoracic echocardiogram. Exam performed portable in patient room. Left Ventricle Normal LV size. Left ventricular systolic function is lower limits of normal. The estimated ejection fraction is 53 %. Transmitral diastolic flow velocities suggest mild (stage 1) diastolic dysfunction (reversed pattern). No regional wall motion abnormalities noted. Right Ventricle Normal RV size. Normal systolic function. Atria The left atrium is mildly enlarged. Normal right atrium. Bubble contrast study negative for right to left interatrial shunt. Mitral Valve Normal mitral valve. Mild (1+) eccentric mitral valve insufficiency. Tricuspid Valve Normal tricuspid valve. Mild (1+) tricuspid valve insufficiency. Pulmonary artery systolic pressure is 34 mmHg. Aortic Valve Trisinus/trileaflet aortic valve. Pulmonic Valve Normal pulmonic valve. Great Vessels Normal aortic root. The pulmonary artery is normal size. Normal inferior vena cava. Pericardium/Pleural No pericardial effusion. Medication Performed a rapid injection of agitated mix of 9 cc saline and 1cc air to assess for atrial septal defect. MMode/2D Measurements AND Calculations LVIDd: 5.9 cm IVSd: 1.3 cm Ao root diam: 3.3 cm LVIDs: 5.3 cm LVPWd: 1.0 cm RVDd: 3.6 cm FS: 9.7 % LAV(MOD-bp): 86.9 ml EDV(MOD-sp4): 143.5 ml EDV(MOD-sp2): 151.3 ml LAV(MOD-bp) Indexed: 38.0 ml/m2 ESV(MOD-sp4): 73.4 ml EF(MOD-sp2): 39.7 % LAV(MOD-sp2): 92.0 ml EF(MOD-sp4): 48.9 % LAV(MOD-sp4): 72.0 ml SV(MOD-sp4): 70.2 ml SV(MOD-sp2): 60.1 ml LA A4 area: 24.4 cm2 RA A4 area: 19.0 cm2 Doppler Measurements AND Calculations MV E max re: 44.0 cm/sec Lat Peak E' Re: 10.1 cm/sec Med Peak E' Re: 4.5 cm/sec MV A max re: 35.4 cm/sec E/E' lat: 4.3 E/E' med: 9.7 MV E/A: 1.2 Ao V2 max: 93.4 cm/sec LV V1 max: 76.5 cm/sec PA V2 max: 76.8 cm/sec Ao max P.5 mmHg LV V1 max P.3 mmHg PI end-d re: 141.5 cm/sec TR max re: 269.4 cm/sec TR max P.0 mmHg Interpretation Summary Normal LV size. Left ventricular systolic function is lower limits of normal. The estimated ejection fraction is 53 %. Transmitral diastolic flow velocities suggest mild (stage 1) diastolic dysfunction (reversed pattern). Mild (1+) eccentric mitral valve insufficiency. Mild (1+) tricuspid valve insufficiency. Ordering Physician: Sameer Houston Referring Physician: ELLIS DE LUNA Performed By: Sheila Olea, OPAL, RVT 08/02/17 1533 Date Baron Veliz MD CC: Stefanie Agarwal MD; Ellis De Luna MD; Sameer Houston MD Date Dictated: 08/02/17 1427 Date Transcribed: 08/02/17 153 Associate Designer: Signed BEDSIDE GLUCOSE Collected: 08/02/2017 Status: F Source: [place] 2:22 PM [facility] [place] [facility] TYPE CODE TESTS RESULT OUT OF REFERENCE UNITS RANGE LAB L501.080 70-110 mg/dL High BEDSIDE GLU 164 Result Comment: MANAGEMENT OF PATIENT CARE PER NURSING PROTOCOL Performed By: #### L501.080 #### [facility] Laboratory Point of Care [address] [place] [address] DISCHARGE INSTRUCTION Observed: 08/02/2017 Status: F Source: [place] 12:01 PM [facility] [place] [facility] Medical Records Department [address] [place] [address] Instructions for Home/Discharge Instructions 08/02/17 1159 MR#: [id number] Acct: [id number] Name: MICKY ROLDAN Rep #: [id number] : 1950 66 From: Stefanie Agarwal MD PCP: Ellis De Luna MD Status: ADM IN ADDENDUM by Stefanie Agarwal MD on 08/02/17 at 1201 Follow-up with speech therapy in the outpatient. Date Stefanie Agarwal MD cc: Medhat Yadav MD; Ellis De Luna MD * Signed - Discharge Diagnoses Current Active Problems: Current Active and Chronic Problems (Last Updated 03/18/17 @ 10:35 by TANNER LightC) Ischemic stroke (Acute) Reason(s) for Visit for Discharge Instructions: Dyslexia You will use the following diet at home:: Calorie/Carbohydrate Controlled (specify 1200, 1400, etc), Cardiac Your food should be the consistency of: Regular Your liquids should be the consistency of: Regular/Thin Discharge Activity: Return to Normal Activity Allergies/Adverse Reactions: Allergies atorvastatin [From Lipitor] Adverse Reaction (Mild, Verified 08/01/17 10:03) mylgia lower leg pain lanolin Adverse Reaction (Unknown, Verified 08/01/17 10:03) Unknown Medications to take at Discharge Levothyroxine [Synthroid] 125 mcg PO DAILY 01/19/17 Multivitamin with Iron [Multivitamins with Iron] 1 ea PO DAILY 01/19/17 metformin 500 mg tablet 500 mg PO BID 03/19/17 metoprolol tartrate 25 mg tablet 12.5 mg PO BID #90 tab 06/24/17 losartan 25 mg tablet 25 mg PO QDAY 06/28/17 Clopidogrel Bisulfate [Plavix] 75 mg PO DAILY #30 tab 08/02/17 Insulin Lispro Protamin/Lispro [Humalog Mix 75-25 Kwikpen] 30 unit SC BID #0 ml 08/02/17 The following prescriptions were given: Clopidogrel Bisulfate [Plavix] 75 mg PO DAILY #30 tab Primary Care Physician: Ellis De Luna MD [Primary Care Provider] - Please follow up with your Primary Care Physician in: within 2 weeks Please Follow Up With: Nacho Glass MD When: within 2 weeks Proposed Discharge Date: 08/02/17 08/02/17 1200 <Electronically signed by Stefanie Agarwal MD> Date Stefanie Agarwal MD CC: Medhat Yadav MD; Ellis De Luna MD BEDSIDE GLUCOSE Collected: 08/02/2017 Status: F Source: [place] 11:23 AM [facility] [place] [facility] TYPE CODE TESTS RESULT OUT OF REFERENCE UNITS RANGE LAB L501.080 70-110 mg/dL High BEDSIDE GLU 184 Result Comment: MANAGEMENT OF PATIENT CARE PER NURSING PROTOCOL Performed By: #### L501.080 #### [facility] Point of Care [address] [place] [address] BEDSIDE GLUCOSE Collected: 08/02/2017 Status: F Source: [place] 7:03 AM [facility] [place] [facility] TYPE CODE TESTS RESULT OUT OF RANGE REFERENCE UNITS LAB L501.080 70-110 mg/dL Normal BEDSIDE GLU 104 Result Comment: MANAGEMENT OF PATIENT CARE PER NURSING PROTOCOL Performed By: #### L501.080 #### [facility] Point of Care [address] [place] [address] BASIC METABOLIC Collected: 08/02/2017 Status: F Source: [place] PROFILE (BMP) 5:40 AM [facility] [place] [facility] TYPE CODE TESTS RESULT OUT OF RANGE REFERENCE UNITS LAB L501.0100 74-106 mg/dL Normal GLU 90 Result Comment: Please note revised GLUCOSE reference range effective 2017. LAB L501.1000 7-18 mg/dL Normal BUN 18 LAB L501.1100 0.70-1.30 mg/dL Normal CREAT,SERUM 1.04 Result Comment: The validity of the calculated GFR AND GFRAA in patients over 70 years has not been determined. Clinical correlation is essential. LAB L501.1110 >60 mL/min Normal EST GFR 76 Result Comment: Non- GFR Calc LAB L501.1115 >60 mL/min Normal EST GFR - AA 92 Result Comment: GFR Calc LAB L501.1255 ml/min Normal Estimated CRCL 78.96 LAB L501.1300 10-20 RATIO Normal BUN/CRE 17.3 LAB L501.2200 8.5-10 mg/dL Normal .1 CA 8.8 LAB L501.5300 136-14 mmol/L Normal 5 NA 143 LAB L501.5600 3.5-5. mmol/L Normal 1 K 4.1 LAB L501.5900 98-107 mmol/L Normal CL 107 LAB L501.6100 21.0-3 mmol/L Normal 2.0 CO2 27.0 LAB L501.6200 5-15 Normal GAP 9 Performed By: #### L500.2500, L500.4100 #### [facility] [address] [place], [address] LIPID PROFILE Collected: 08/02/2017 Status: F Source: [place] 5:40 AM [facility] [place] [facility] TYPE CODE TESTS RESULT OUT OF RANGE REFERENCE UNITS LAB L501.4900 200 mg/dL Normal CHOL 131 Result Comment: <200 mg/dL Desirable 200-240 mg/dL Borderline >240 mg/dL High Risk LAB L501.5000 mg/dL Normal TRIG 134 Result Comment: The drugs N-Acetylcysteine and Metamizole may falsely depress this assay. Serum Triglycerides Reference Interval Normal <150 mg/dL Borderline high 150 - 199 mg/dL High 200 - 499 mg/dL Very High > or = 500 mg/dL LAB L501.6400 mg/dL Normal HDL 41 Result Comment: The drugs N-Acetylcysteine and Metamizole may falsely depress this assay. Reference Range HDL <40 mg/dL Low HDL Cholesterol HDL >or= 60 mg/dL High HDL Cholesterol LAB L501.6500 0-130 mg/dL Normal LDL 63 LAB L501.6600 5-40 mg/dL Normal VLDL 27 Performed By: #### L500.2500, L500.4100 #### [facility] [address] [facility] [place], [address] HEMOGLOBIN A1C Collected: 08/02/2017 Status: F Source: [place] 5:40 AM [facility] [place] [facility] TYPE CODE TESTS RESULT OUT OF RANGE REFERENCE UNITS LAB L501.9985 4.2-6.3 % High HGB A1C 8.8 Performed By: #### L501.9985 #### [facility] [address] [place], [address] BEDSIDE GLUCOSE Collected: 08/01/2017 Status: F Source: [place] 9:59 PM [facility] [place] [facility] TYPE CODE TESTS RESULT OUT OF REFERENCE UNITS RANGE LAB L501.080 70-110 mg/dL High BEDSIDE GLU 125 Result Comment: MANAGEMENT OF PATIENT CARE PER NURSING PROTOCOL Performed By: #### L501.080 #### [facility] Point of Care [address] [place] [address] TROPONIN-I Collected: 08/01/2017 Status: F Source: [place] 5:20 PM [facility] [place] [facility] TYPE CODE TESTS RESULT OUT OF RANGE REFERENCE UNITS LAB L501.4010 <0.045 ng/mL Normal 0.026 TROPONIN-I Result Comment: TROPONIN-I EXPECTED VALUES <0.045 NEGATIVE 0.045 - 0.590 AT RISK OF UT > OR = 0.600 SUGGEST UT Not every elevated troponin is indicative of UT. These values should be used with clinical judgement in examining the patient's clinical picture for diagnosis. To establish a diagnosis of UT versus myocardial injury, there must be a demonstrated rise and/or fall in the troponin values, in addition to ischemic symptoms, EKG changes, new regional wall motion abnormality, and/or angiographical evidence. PLEASE NOTE: REFERENCE RANGES EDITED 17 Performed By: #### L501.4010 #### [facility] [address] [place], [address] BEDSIDE GLUCOSE Collected: 08/01/2017 Status: F Source: [place] 5:02 PM [facility] [place] CODE TESTS RESULT OUT OF REFERENCE UNITS RANGE LAB L501.080 70-110 mg/dL High BEDSIDE GLU 183 Result Comment: MANAGEMENT OF PATIENT CARE PER NURSING PROTOCOL Performed By: #### L501.080 #### [facility] Point of Care [address] [place] [address] HISTORY AND PHYSICAL Observed: 08/01/2017 Status: F Source: [place] EXAM 3:28 PM [facility] [place] [facility] Medical Records Department [address] [place] [address] History and Physical 08/01/17 1442 MR#: [id number] Acct: [id number] Name: MICKY ROLDAN Rep #: [id number] : 1950 66 From: Sameer Houston MD PCP: Ellis De Luna MD Status: ADM IN Y Location: [place] [address] Problem List (1) Ischemic stroke Status: Acute (2) Dizziness Status: Chronic (3) Essential (primary) hypertension Status: Chronic (4) Atherosclerosis of [place]it[place] coronary artery of [place]it[place] heart without angina pectoris Status: Chronic Comment: CABG- THRASHER to LAD, reverse SVG to post lateral, reverse SVG to OM 01/21/2017 (5) Unstable angina pectoris Status: Acute (6) NSTEMI (non-ST elevated myocardial infarction) Status: Acute (7) Hyperlipidemia Status: Chronic Qualifiers: Hyperlipidemia type: unspecified Qualified Code(s): E78.5 - Hyperlipidemia, unspecified; E78.5 - Hyperlipidemia, unspecified; E78.5 - Hyperlipidemia, unspecified (8) Diabetes mellitus Status: Chronic Qualifiers: Diabetes mellitus type: type 2 Diabetes mellitus retirement insulin use: without 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 designer use Diabetes mellitus complication status: without complication Qualified Code(s): E11.9 - Type 2 diabetes mellitus without complications; E11.9 - Type 2 diabetes mellitus without complications; E11.9 - Type 2 diabetes mellitus without complications; E11.9 - Type 2 diabetes mellitus without complications (9) Thyroid disorder Status: Chronic History of Present Illness Date of Admission: 08/01/17 Chief Complaint: Dyslexia symptoms The patient is a 66 year old M with history significant of coronary artery disease status post three-vessel CABG in January 2017 came to ER with difficulty in reading since last Wednesday 2 days ago. Patient further said he gets an episode where he feels like tunnel vision, lightheadedness and headache that lasted for about 4 hours improves with eating. He also has difficulty in understanding the printed words although words looks fine with no distorted images. No problem in understanding spoken language/speech but he feels a little slow in his speech but no slurring or stuttering. No focal weakness or numbness or tingling. No loss of control of bladder or bowel function. Patient said he had TIA after 2 weeks of triple bypass surgery in February 2017 which recovered with no residual deficit [] Past Medical History Past Medical History (Chronic Problems): Chronic Problems (Last Updated 03/18/17 @ 10:35 by SUKI Light) Dizziness (Chronic) Essential (primary) hypertension (Chronic) Atherosclerosis of [place]it[place] coronary artery of [place] heart without angina pectoris (Chronic) CABG- THRASHER to LAD, reverse SVG to post lateral, reverse SVG to OM 01/21/2017 Hyperlipidemia (Chronic) Diabetes mellitus (Chronic) Thyroid disorder (Chronic) Allergies atorvastatin [From Lipitor] Adverse Reaction (Mild, Verified 08/01/17 10:03) mylgia lower leg pain lanolin Adverse Reaction (Unknown, Verified 08/01/17 10:03) Unknown Home Medications: Ambulatory Orders Medication Instructions Recorded Levothyroxine [Synthroid] 125 mcg PO DAILY 01/19/17 Multivitamin with Iron 1 ea PO DAILY 01/19/17 Surgical History: no surgical history Smoking Status: Former smoker - *Family History Sibling History Items: Heart Disease - UT Maternal History Items: No pertinent history Paternal History Items: No pertinent history Review of Systems Constitutional: Denies: Chills, Fever, Weight Change HEENT: Reports: Head Aches, Visual Changes. Denies: Sinus Congestion, Sinus Drainage Cardiovascular: Denies: Chest Pain, Palpitations Respiratory: Denies: Cough, Shortness of breath at rest, Sputum production Gastrointestinal: Denies: Abdominal Pain, Nausea, Vomiting Genitourinary: Denies: Dysuria Musculoskeletal: Denies: Joint Pain, Joint Tenderness Skin: Denies: Rash, Wounds Neurological: Reports: Change in Speech. Denies: Focal weakness, Numbness, Tingling Psychiatric: Denies: Anxiety, Depression, Homicidal Ideations, Suicidal Ideations Hematologic/ Lymphatic: Denies: Easy Bruising, Easy Bleeding VTE Information - Inpt Only VTE Present on Admission: No VTE Mechan Device Prophylaxis: SCD's VTE Pharm Prophylaxis ordered?: Yes Patient Problems: Active and Suspected Problems (Last Updated 03/18/17 @ 10:35 by SUKI Light) Ischemic stroke (Acute) - Physical Exam General: Alert, Oriented x3, Cooperative HEENT: Atraumatic, PERRLA, EOMI, Normocephalic Neck: Supple, No JVD, Negative Carotid Bruits Lungs: Clear to auscultation, No rhonchi, No rales, Diminished Cardiovascular: Regular rate, Regular Rhythm, Normal S1, Normal S2, No murmurs Abdomen: Bowel Sounds Present, Soft, Non Tender, Non-Distended Extremities: No edema, Capillary Refill Less than 3 Seconds Skin: No rashes, No breakdown Musculoskeletal: No Tenderness to Palpation of Joints or Extremities, Arthritic Changes Neurological: Cranial nerves II-XII grossly intact Psych/Mental Status: Normal Affect, Appropriate, - - NIHSS 0 Vital Signs Temp Pulse Resp BP Pulse Ox 98.6 F 59 L 16 130/74 H 95 08/01/17 13:12 08/01/17 14:03 08/01/17 14:03 08/01/17 14:03 08/01/17 14:03 Oxygen Delivery Method Room Air Weight: 230 lb 1.6 oz Body Mass Index (BMI) 30.3 Assessment/Plan Active and Suspected Problems (Last Updated 03/18/17 @ 10:35 by Jesús Hensley NP-C) Ischemic stroke (Acute) The patient is a 66 year old M with history significant of coronary artery disease status post three-vessel CABG in January 2017 came to ER with difficulty in reading since last Wednesday 2 days ago. Patient further said he gets an episode where he feels like tunnel vision, lightheadedness and headache that lasted for about 4 hours improves with eating. He also has difficulty in understanding the printed words although words looks fine with no distorted images. No problem in understanding spoken language/speech but he feels a little slow in his speech but no slurring or stuttering. No focal weakness or numbness or tingling. No loss of control of bladder or bowel function. Patient said he had TIA after 2 weeks of triple bypass surgery in February 2017 which recovered with no residual deficit. 1. Subacute/recent left posterior parieto-occipital ischemic infarct with possible underlying edema: The patient had CT brain shows left posterior parietal occipital hypodensity. After that he had CT angiogram of head and neck which does not show evidence significant stenotic occlusive disease or aneurysm but reported as a recent infarct and possible underlying edema as mentioned above. MRI brain ordered. ER physician already discussed with neurologist Dr. Yadav. On cardiac monitors normal sinus rhythm. Twelve- lead EKG shows normal sinus rhythm with sinus arrhythmia with bifascicular block, right bundle branch block and left anterior fascicular block at 64 bpm. T inversion in lateral leads I, aVL and V5 and V6. First troponin is negative to previous EKG of 19 January 2017 On ischemic CVA protocol with MRI brain, 2D echo, PT, OT and speech/swallow evaluation. Patient passed initial swallow eval. BP and glucose control as per stroke guidelines. On permissive hypertension and does not need antihypertensive medication now. 2. Coronary artery disease status post three-vessel CABG in January 2017 with TIA and delayed postoperative period after 2 weeks: Patient has bilateral lower extremity numbness and mild weakness after surgery but has recovered. Currently motor and sensory function are normal in exam. Continue cardiac medications. 3. Diabetes mellitus type 2: Last blood sugar is 314. On Accu-Cheks before meals and at bedtime and cover with NovoLog sliding scale. Patient is on NovoLog NPH insulin and dose increased to 30 units twice daily. 4. Other chronic comorbidities include hypertension, dyslipidemia and thyroid disorder: TSH and free T4 ordered. Home medication reconciliation done. DVT prophylaxis: No pharmacological prophylaxis for 24 hours. Bilateral SCDs Laboratory Results 08/01/17 10:23: WBC 8.1, RBC 4.95, Hgb 14.1, Hct 42.3, MCV 85.5, MCH 28.5, MCHC 33.3, RDW 15.0 H, RDW Differential 46.4 H, Plt Count 222, MPV 11.5, Immature Gran % (Auto) 0.700, Neut % (Auto) 73.6 H, Lymph % (Auto) 18.3 L, Brown % (Auto) 5.8, Eos % (Auto) 1.2, Baso % (Auto) 0.4, Absolute Neuts (auto) 6.0, Absolute Lymphs (auto) 1.49, Total Counted Not Reportable 08/01/17 10:23: PT 12.8, INR 1.0, APTT 30.4 08/01/17 10:23: Sodium 136, Potassium 4.2, Chloride 99, Carbon Dioxide 27.0, Anion Gap 10, BUN 21 H, Creatinine 1.31 H, Estim Creat Clear Calc 62.69, Est GFR (MDRD) Af Amer 70, Est GFR (MDRD) Non-Af 58 L, BUN/Creatinine Ratio 16.0, Glucose 314 H, Calcium 9.3, Troponin I < 0.020 08/01/17 10:25: Total Creatine Kinase 55 08/01/17 10:25: Total Bilirubin 0.50, Direct Bilirubin 0.11, AST 17, ALT 23, Alkaline Phosphatase 71, Total Protein 8.1, Albumin 3.3, Globulin 4.8 H, TSH 3.67 08/01/17 14:45: Troponin I 0.022 Clinical Impression(s) from Imaging Studies Brain CT 08/01/17 10:30 IMPRESSION: 1. Left posterior parietal-occipital hypodensity most concerning for acute infarct with underlying lesion not excluded. Recommend MRI evaluation for further characterization. Previous underlying infarct is not excluded. 2. Right posterior subcutaneous soft tissue injury, clinically correlate. No evidence of underlying fracture. N.B. : The above information has been verbally conveyed by Oleg Benson DO to Marija Saenz on 08/01/2017 11:39:15 (ET). Chest X-Ray 08/01/17 11:05 IMPRESSION: No evidence of acute cardiopulmonary process. Head CTA 08/01/17 11:55 IMPRESSION: 1. No evidence of significant steno-occlusive disease or aneurysm. No evidence of definitive enhancing mass within the left posterior parietal hypodensity with differential including previous infarct, recent infarct and underlying edema. Definitive characterization may be obtained with MRI evaluation versus previous comparative imaging and clinical correlation. Neck CTA 08/01/17 11:55 IMPRESSION: 1. No evidence of significant steno-occlusive disease or aneurysm. No evidence of definitive enhancing mass within the left posterior parietal hypodensity with differential including previous infarct, recent infarct and underlying edema. Definitive characterization may be obtained with MRI evaluation versus previous comparative imaging and clinical correlation. Code Visit Inpatient E AND M: 73035 Init Hosp L3 08/01/17 1528 <Electronically signed by Sameer Houston MD> Date Sameer Houston MD Cosigner Signature: Date (if applicable) CC: Ellis De Luna MD; Sameer Houston MD Signed EMERGENCY DEPARTMENT Observed: 08/01/2017 Status: F Source: [place] SUMMARY 3:00 PM [facility] [place] [facility] [facility] Medical Records Department [address] [place] [address] Emergency Department Summary 08/01/17 1146 MR#: [id number] Acct: [id number] Name: MICKY ROLDAN Rep #: [id number] : 1950 66 From: Marija Saenz MD PCP: Ellis De Luna MD Status: ADM IN - ER Visit Summary Date of Service: 08/01/17 Chief Complaint: Difficulty reading History of Present Illness: The patient is a 66 M presenting with difficulty with reading. Patient states on Wednesday, 2 days ago he had an episode which he felt was low blood sugar. He did not check his blood sugar at the time. He states he had tunnel vision, lightheadedness, headache. This improved with eating. He states he has had multiple low blood sugars in the past and this felt similar. He said since that time he has difficulty reading. He states he is able to see normally and has no vision changes. He states he has to sound out the word and then is able to read the word. He is able to write. He denies any other complaints. He has a history of a concussion 4 weeks ago while at work. He states he has been having dizziness and headache since that time. Denies other complaints. Physical Examination: Vitals are stable. Patient is afebrile. Alert no acute distress. HEENT exam is unremarkable. Neck is supple. Lungs are clear and equal bilaterally. Heart is regular rate and rhythm. Abdomen is soft nontender nondistended. Extremities are unremarkable. Skin is warm and dry. No focal neurologic deficit. NIH 0 Remainder of exam is unremarkable. Emergency Department Course and Treatment: EKG is sinus rate is 62 unchanged from previous. Chest x-ray shows no acute process. CBC is normal. Chemistries normal except for glucose 314, BUN 21, creatinine 1.31. INR is 1.0. Troponin is negative. CT head shows left posterior parietal-occipital hypodensity most concerning for acute infarct with underlying lesion not excluded. Recommend MRI evaluation for further characterization. Previous underlying infarct is not excluded. Right posterior subcutaneous soft tissue injury, clinically correlate. No evidence of underlying fracture. Discussed with Dr. Yadav. Patient will be admitted to the hospitalist. Disposition: Admission Impression: Acute CVA This note was generated with Dragon dictation software. It may contain incorrect words, spelling, and punctuation that were not noted in review of the chart prior to signing ED Disposition - Plan for ED Patient: Disposition: Acute Care Hospital [facility] Chief Complaint: Neuro S/Sx What to do if you have Problems For any increased pain, shortness of breath, bleeding, nausea or vomiting, chest pain, or any unexpected problems, contact your Primary Care Provider. Call [facility] ([phone]) or report to the closest Emergency Room. Call 911 if necessary. 08/01/17 1500 <Electronically signed by Marija Saenz MD> Date Marija Saenz MD Cosigner Signature (If Indicated): Date CC: Ellis De Luna MD TROPONIN-I Collected: 08/01/2017 Status: F Source: [place] 2:45 PM [facility] [place] TYPE CODE TESTS RESULT OUT OF RANGE REFERENCE UNITS LAB L501.4010 <0.045 ng/mL Normal 0.022 TROPONIN-I Result Comment: TROPONIN-I EXPECTED VALUES <0.045 NEGATIVE 0.045 - 0.590 AT RISK OF UT > OR = 0.600 SUGGEST UT Not every elevated troponin is indicative of UT. These values should be used with clinical judgement in examining the patient's clinical picture for diagnosis. To establish a diagnosis of UT versus myocardial injury, there must be a demonstrated rise and/or fall in the troponin values, in addition to ischemic symptoms, EKG changes, new regional wall motion abnormality, and/or angiographical evidence. PLEASE NOTE: REFERENCE RANGES EDITED 17 Performed By: #### L501.4010 #### [facility] [address] [place], [address] BRAIN WITHOUT Observed: 08/01/2017 Status: F Source: [place] CONTRAST 2:20 PM [facility] [place] [facility] Imaging Services [address] [place] [address] Brain without Contrast MR#: [id number] Acct: [id number] Name: MICKY ROLDAN Rep #: [id number] : 1950 Deb Huggins From: Chika Jett PCP: Ellis De uLna MD Status: ADM IN Study: Brain without Contrast Date of Exam: 08/02/17 Exam# [id number] Ordering Dr: Sameer Houston MD STUDY: MRI BRAIN WITHOUT CONTRAST REASON FOR EXAM: Male, 66 years old. numbness/tingling; lightheaded,dizzy, difficulty reading; f/u to abnormal ct. TECHNIQUE: Standardized multiplanar fat and water weighted pulse sequences were obtained. COMPARISON: 08/01/2017 CT of the head FINDINGS: There is mild cerebral atrophy with widening of the extra- axial spaces and ventricular dilatation. There are a limited number of small white matter hyperintensities, distributed throughout the deep white matter tracts of the cerebral hemispheres, consistent with mild chronic white matter ischemic changes. There is restricted diffusion involving posterior left temporal lobe with drop of signal on the ADC map, consistent with acute infarction. Normal bilateral basal ganglia. Normal thalami. There is no extra-axial fluid accumulation. Normal flow voids within the major intracranial circulation suggesting patency by spin echo criteria. Normal sella turcica, pituitary gland, infundibular stalk, optic chiasm and hypothalamus. Normal tectal plate and pineal gland. Normal midbrain, renita and medulla. Normal cerebellum. Normal basal cisterns. Normal bilateral temporal bones. Normal bilateral internal auditory canals. MRI/Brain without Contrast IMPRESSION: Acute left temporal infarct. Electronically Signed: Chika Jett MD at 9:47 EDT Tel , Service support , CC: Ellis De Luna MD; Sameer Houston MD Associate Designer: Signed CTA HEAD W/WO Observed: 08/01/2017 Status: F Source: [place] CONTRAST 11:56 AM [facility] [place] [facility] Imaging Services [address] [place] [address] CTA Head W/WO Contrast MR#: [id number] Acct: [id number] Name: MICKY ROLDAN Rep #: [id number] : 1950 M 66 From: Oleg Benson DO PCP: Ellis De Luna MD Status: REG ER Study: CTA Head W/WO Contrast Date of Exam: 08/01/17 Exam# [id number] Ordering Dr: Marija Saenz MD STUDY: CTA NECK WITH CONTRAST REASON FOR EXAM: Male, 66 years old. Left posterior infarct, question mass. RADIATION DOSAGE (If Supplied By Facility): CTDIvol = ( 26.45 ) mGy, DLP = ( 797.13 ) mGycm TECHNIQUE: CT angiography with multi-detector data acquisition was performed from the aortic arch to the skull base following intravenous administration of 100 ml of Isovue 370 contrast. MIP images were reconstructed from the axial data set. Post-processing of the angiographic images was performed, with multiplanar reformation and 3D reconstruction. Individualized dose optimization techniques were used for this CT. COMPARISON: None. FINDINGS: AORTIC ARCH: Normal visualized aortic arch. Normal origins of the brachiocephalic, left common carotid, and left subclavian arteries. RIGHT CAROTID ARTERIES: Normal right common carotid artery (CCA). There is mild atherosclerotic plaque formation with minimal narrowing of the right carotid bulb. Normal origin of the right internal carotid (ICA) artery without a hemodynamically significant stenosis. Normal visualized cervical portion of the right internal carotid artery. Normal origin of the right external carotid artery (ECA). LEFT CAROTID ARTERIES: Normal left common carotid artery (CCA). There is mild atherosclerotic plaque formation with minimal narrowing of the left carotid bulb. Normal origin of the left internal carotid (ICA) artery without a hemodynamically significant stenosis. Normal visualized cervical portion of the left internal carotid artery. Normal origin of the left external carotid artery (ECA). VERTEBRAL ARTERIES: There is a diminutive right vertebral artery with termination within the posterior segment. The left vertebral artery is dominant feeding the basilar artery. IMPRESSION: 1. No evidence of significant steno-occlusive disease or aneurysm. Mild bilateral carotid bulb atherosclerosis. Electronically Signed: Oleg Benson DO at 13:15 EDT , Service support , STUDY: CTA OF THE BRAIN REASON FOR EXAM: Male, 66 years old. Left posterior infarct versus mass. RADIATION DOSAGE (If Supplied By Facility): CTDIvol = ( 26.45 ) mGy, DLP = ( 797.13 ) mGycm TECHNIQUE: CT angiography was performed with a multi-detector CT scanner. Data acquisition was obtained from the skull base through the vertex following intravenous administration of 100 ml of IV contrast. MIP images were reconstructed from the axial data set. Post-processing of the angiographic images was performed, with multiplanar reformation and 3D reconstruction. Individualized dose optimization techniques were used for this CT. COMPARISON: None. FINDINGS: Normal bilateral petrous carotid arteries. Normal right cavernous carotid artery with a normal supraclinoid bifurcation. Normal left cavernous carotid artery with a normal supraclinoid bifurcation. Normal right A1 segments of the anterior cerebral artery. Normal left A1 segments of the anterior cerebral artery. Normal intact anterior communicating artery (ACOM). Normal bilateral A2 segments of the anterior cerebral arteries. Normal right M1 and M2 segments of the middle cerebral arteries, with a normal M1 bifurcation. Normal left M1 and M2 segments of the middle cerebral arteries, with a normal M1 bifurcation. There is non-visualization of the right posterior communicating artery (PCOM). There is non-visualization of the left posterior communicating artery (PCOM). The right vertebral artery terminates in the posterior circulation. Normal basilar artery with a normal basilar bifurcation. The visualized bilateral superior cerebellar (SCA) arteries are normal. Normal bilateral P1, P2 and visualized P3 segments of the posterior cerebral arteries. There is no demonstrated aneurysm of the [place]. Within the region of the left posterior hypodensity is noted no evidence of enhancing mass or definitive lesion. CT/CTA Head W/WO Contrast IMPRESSION: 1. No evidence of significant steno-occlusive disease or aneurysm. No evidence of definitive enhancing mass within the left posterior parietal hypodensity with differential including previous infarct, recent infarct and underlying edema. Definitive characterization may be obtained with MRI evaluation versus previous comparative imaging and clinical correlation. Electronically Signed: Oleg Benson DO at 12:55 EDT , Service support , CC: Marija Saenz MD; Ellis De Luna MD Associate Designer: Signed CTA NECK W/WO Observed: 08/01/2017 Status: F Source: [place] CONTRAST 11:56 AM [facility] [place] [facility] Imaging Services [address] [place] [id number] CTA Neck W/WO Contrast MR#: [id number] Acct: [id number] Name: MICYK ROLDAN Rep #: [id number] : 1950 M 66 From: Oleg Benson DO PCP: Ellis De Luna MD Status: REG ER Study: CTA Neck W/WO Contrast Date of Exam: 08/01/17 Exam# [id number] Ordering Dr: Marija Saenz MD STUDY: CTA NECK WITH CONTRAST REASON FOR EXAM: Male, 66 years old. Left posterior infarct, question mass. RADIATION DOSAGE (If Supplied By Facility): CTDIvol = ( 26.45 ) mGy, DLP = ( 797.13 ) mGycm TECHNIQUE: CT angiography with multi-detector data acquisition was performed from the aortic arch to the skull base following intravenous administration of 100 ml of Isovue 370 contrast. MIP images were reconstructed from the axial data set. Post-processing of the angiographic images was performed, with multiplanar reformation and 3D reconstruction. Individualized dose optimization techniques were used for this CT. COMPARISON: None. FINDINGS: AORTIC ARCH: Normal visualized aortic arch. Normal origins of the brachiocephalic, left common carotid, and left subclavian arteries. RIGHT CAROTID ARTERIES: Normal right common carotid artery (CCA). There is mild atherosclerotic plaque formation with minimal narrowing of the right carotid bulb. Normal origin of the right internal carotid (ICA) artery without a hemodynamically significant stenosis. Normal visualized cervical portion of the right internal carotid artery. Normal origin of the right external carotid artery (ECA). LEFT CAROTID ARTERIES: Normal left common carotid artery (CCA). There is mild atherosclerotic plaque formation with minimal narrowing of the left carotid bulb. Normal origin of the left internal carotid (ICA) artery without a hemodynamically significant stenosis. Normal visualized cervical portion of the left internal carotid artery. Normal origin of the left external carotid artery (ECA). VERTEBRAL ARTERIES: There is a diminutive right vertebral artery with termination within the posterior segment. The left vertebral artery is dominant feeding the basilar artery. IMPRESSION: 1. No evidence of significant steno-occlusive disease or aneurysm. Mild bilateral carotid bulb atherosclerosis. Electronically Signed: Oleg Benson DO at 13:15 EDT , Service support , STUDY: CTA OF THE BRAIN REASON FOR EXAM: Male, 66 years old. Left posterior infarct versus mass. RADIATION DOSAGE (If Supplied By Facility): CTDIvol = ( 26.45 ) mGy, DLP = ( 797.13 ) mGycm TECHNIQUE: CT angiography was performed with a multi-detector CT scanner. Data acquisition was obtained from the skull base through the vertex following intravenous administration of 100 ml of IV contrast. MIP images were reconstructed from the axial data set. Post-processing of the angiographic images was performed, with multiplanar reformation and 3D reconstruction. Individualized dose optimization techniques were used for this CT. COMPARISON: None. FINDINGS: Normal bilateral petrous carotid arteries. Normal right cavernous carotid artery with a normal supraclinoid bifurcation. Normal left cavernous carotid artery with a normal supraclinoid bifurcation. Normal right A1 segments of the anterior cerebral artery. Normal left A1 segments of the anterior cerebral artery. Normal intact anterior communicating artery (ACOM). Normal bilateral A2 segments of the anterior cerebral arteries. Normal right M1 and M2 segments of the middle cerebral arteries, with a normal M1 bifurcation. Normal left M1 and M2 segments of the middle cerebral arteries, with a normal M1 bifurcation. There is non-visualization of the right posterior communicating artery (PCOM). There is non-visualization of the left posterior communicating artery (PCOM). The right vertebral artery terminates in the posterior circulation. Normal basilar artery with a normal basilar bifurcation. The visualized bilateral superior cerebellar (SCA) arteries are normal. Normal bilateral P1, P2 and visualized P3 segments of the posterior cerebral arteries. There is no demonstrated aneurysm of the [place]. Within the region of the left posterior hypodensity is noted no evidence of enhancing mass or definitive lesion. CT/CTA Neck W/WO Contrast IMPRESSION: 1. No evidence of significant steno-occlusive disease or aneurysm. No evidence of definitive enhancing mass within the left posterior parietal hypodensity with differential including previous infarct, recent infarct and underlying edema. Definitive characterization may be obtained with MRI evaluation versus previous comparative imaging and clinical correlation. Electronically Signed: Oleg Benson DO at 12:55 EDT , Service support , CC: Marija Saenz MD; Ellis De Luna MD Associate Designer: Signed CHEST 1 VIEW Observed: 08/01/2017 Status: F Source: [place] 10:31 AM [facility] [place] Imaging Services [address] [place] [address] Chest 1 View MR#: [id number] Acct: [id number] Name: QUIANAFABIANMICKY Rep #: [id number] : 1950 M 66 From: Oleg Benson DO PCP: Ellis De Luna MD Status: REG ER Study: Chest 1 View Date of Exam: 08/01/17 Exam# [id number] Ordering Dr: Marija Saenz MD STUDY: X-RAY CHEST REASON FOR EXAM: Male, 66 years old. Shortness of breath. TECHNIQUE: Single AP portable view of the chest. COMPARISON: 19 January 2017 FINDINGS: Tenotomy wires are midline. The lungs are clear and expanded. There is no demonstrated pleural abnormality. Normal size heart. Normal mediastinum and nasrin. Normal visualized pulmonary arteries. Normal visualized aortic arch and descending thoracic aorta. Normal visualized thoracic spine. Normal visualized ribs, clavicles, and shoulders. There is no demonstrated abnormality of the visualized soft tissue structures of the upper abdomen. RAD/Chest 1 View IMPRESSION: No evidence of acute cardiopulmonary process. Electronically Signed: Oleg Benson DO at 11:35 EDT , Service support , CC: Marija Saenz MD; Ellis De Luna MD Associate Designer: Signed BRAIN/HEAD WITHOUT Observed: 08/01/2017 Status: F Source: [place] CONTRAST 10:31 AM [facility] [place] [facility] Imaging Services [address] [place] [address] Brain/Head without Contrast MR#: [id number] Acct: [id number] Name: MICKY ROLDAN Sid Rep #: [id number] : 1950 66 From: Oleg Benson DO PCP: Ellis De Luna MD Status: REG ER Study: Brain/Head without Contrast Date of Exam: 08/01/17 Exam# [id number] Ordering Dr: Marija Saenz MD STUDY: CT BRAIN WITHOUT CONTRAST REASON FOR EXAM: Male, 66 years old. Vision changes following injury. RADIATION DOSAGE (If Supplied By Facility): CTDIvol = ( 44.99 ) mGy, DLP = ( 846.73 ) mGycm TECHNIQUE: Transaxial CT imaging of the brain was performed without administration of intravenous contrast material. Individualized dose optimization techniques were used for this CT. COMPARISON: None. FINDINGS: Right posterior soft tissue swelling is present. Normal calvarium. Within the left posterior parietal-occipital region is a hypodense region of parenchyma measuring approximately 3 cm in diameter most concerning for infarct with underlying lesion not excluded. Mild edema extends into the left temporal lobe Normal white matter tracts of the cerebral hemispheres. Normal basal ganglia and thalami. Normal brainstem. Normal cerebellum. There is no intracranial hemorrhage. There are no findings of an acute ischemic infarction. Normal visualized paranasal sinuses. CT/Brain/Head without Contrast IMPRESSION: 1. Left posterior parietal-occipital hypodensity most concerning for acute infarct with underlying lesion not excluded. Recommend MRI evaluation for further characterization. Previous underlying infarct is not excluded. 2. Right posterior subcutaneous soft tissue injury, clinically correlate. No evidence of underlying fracture. N.B. : The above information has been verbally conveyed by Oleg Benson DO to Marija Saenz on 08/01/2017 11:39:15 (ET). Electronically Signed: Oleg Benson DO at 11:39 EDT , Service support , N.B. : The above information has been verbally conveyed by Oleg Benson DO to Marija Saenz on 08/01/2017 11:39:15 (ET). CC: Marija Saenz MD; Ellis De Luna MD Associate Designer: Signed CPK TOTAL, CREATINE Collected: 08/01/2017 Status: F Source: [place] KIN[place] 10:25 AM [facility] [place] [facility] TYPE CODE TESTS RESULT OUT OF RANGE REFERENCE UNITS LAB L501.3620 39-308 U/L Normal CPK TOTAL 55 Performed By: #### L501.3620 #### [facility] [place], [address] LIVER PROFILE Collected: 08/01/2017 Status: F Source: [place] 10:25 AM [facility] [place] [facility] TYPE CODE TESTS RESULT OUT OF RANGE REFERENCE UNITS LAB L501.1500 6.4-8.2 g/dL Normal T PROT 8.1 LAB L501.1800 3.2-5.0 g/dL Normal ALB 3.3 LAB L501.1950 2.2-4.2 g/dL High GLOB 4.8 LAB L501.4100 15-37 U/L Normal AST 17 LAB L501.4305 45-117 U/L Normal ALK P 71 LAB L501.4405 16-61 U/L Normal ALT 23 LAB L501.4600 0.20-1.00 mg/dL Normal T BILI 0.50 LAB L501.4700 0.00-0.30 mg/dL Normal D BILI 0.11 Performed By: #### L500.3400, L501.9520 #### [facility] [address] [place], [place], [address] THYROID STIM HORMONE Collected: 08/01/2017 Status: F Source: [place] (TSH) 10:25 AM [facility] [place] [facility] TYPE CODE TESTS RESULT OUT OF RANGE REFERENCE UNITS LAB L501.9520 0.358-3.74 uIU/mL Normal TSH 3.67 Performed By: #### L500.3400, L501.9520 #### [facility] [address] [place], [address] CBC W/DIFF, AUTOMATED Collected: 08/01/2017 Status: F Source: [place] 10:23 AM [facility] [place] [facility] TYPE CODE TESTS RESULT OUT OF RANGE REFERENCE UNITS LAB L100.1000 4.4-11.0 K/mm3 Normal WBC 8.1 LAB L100.1200 4.6-6.2 M/mm3 Normal RBC 4.95 LAB L100.1300 13.0-16.5 g/dl Normal HGB 14.1 LAB L100.1400 40-54 % Normal HCT 42.3 LAB L100.1500 80-94 fL Normal MCV 85.5 LAB L100.1600 27.0-32.0 pg Normal MCH 28.5 LAB L100.1700 32-36 g/gl Normal MCHC 33.3 LAB L100.1810 11.6-14.6 % High RDW CV 15.0 LAB L100.1820 35.1-43.9 fl High RDW SD 46.4 LAB L100.1900 150-450 K/mm3 Normal PLT 222 LAB L100.2000 6.2-12.0 fl Normal MPV 11.5 LAB L100.2100 47-70 % High NEUT% 73.6 LAB L100.2200 19-41 % Low LY% 18.3 LAB L100.2300 0-10 % Normal MONO% 5.8 LAB L100.2400 0-5 % Normal EO% 1.2 LAB L100.2500 0-1 % Normal BASO% 0.4 LAB L100.2550 0.0-0.9 % Normal IM GRAN % 0.700 Result Comment: IG% - Immature Granulocytes (promyelocytes, myelocytes and metamyelocytes) > 1% indicates that a LEFT SHIFT is Present. LAB L100.2620 2.0-7.7 X10 3/uL Normal Absolute Neut 6.0 LAB L100.2720 0.83-4.51 X10 3/ul Normal Absolute Lymph 1.49 Performed By: #### L100.0100 #### [facility] [address] [facility] [place], [place], [id number] PROTHROMBIN TIME W/INR Collected: 08/01/2017 Status: F Source: [place] 10:23 AM [facility] [place] [facility] TYPE CODE TESTS RESULT OUT OF RANGE REFERENCE UNITS LAB L300.4150 11.7-14.9 SECONDS Normal PROTIME 12.8 LAB L300.4200 Normal INR 1.0 Performed By: #### L300.3900, L300.4310 #### [facility] [address] [place], [address] PARTIAL THROMBOPLAST Collected: 08/01/2017 Status: F Source: [place] TIME 10:23 AM [facility] [place] [facility] TYPE CODE TESTS RESULT OUT OF RANGE REFERENCE UNITS LAB L300.4310 24.1-36.2 Seconds Normal PTT 30.4 Performed By: #### L300.3900, L300.4310 #### [facility] [address] [place], [address] BASIC METABOLIC Collected: 08/01/2017 Status: F Source: [place] PROFILE (BMP) 10:23 AM [facility] [place] [facility] TYPE CODE TESTS RESULT OUT OF RANGE REFERENCE UNITS LAB L501.0100 74-106 mg/dL High GLU 314 Result Comment: Glucose result greater than or equal to 200 mg/dL suggests DIABETES MELLITUS per A.D.A. criteria. Please note revised GLUCOSE reference range effective 2017. LAB L501.1000 7-18 mg/dL High BUN 21 LAB L501.1100 0.70-1.30 mg/dL High CREAT,SERUM 1.31 Result Comment: The validity of the calculated GFR AND GFRAA in patients over 70 years has not been determined. Clinical correlation is essential. LAB L501.1110 >60 mL/min Low EST GFR 58 Result Comment: Non- GFR Calc LAB L501.1115 >60 mL/min Normal EST GFR - AA 70 Result Comment: GFR Calc LAB L501.1255 ml/min Normal Estimated CRCL 62.69 LAB L501.1300 10-20 RATIO Normal BUN/CRE 16.0 LAB L501.2200 8.5-10 mg/dL Normal .1 CA 9.3 LAB L501.5300 136-14 mmol/L Normal 5 NA 136 LAB L501.5600 3.5-5. mmol/L Normal 1 K 4.2 LAB L501.5900 98-107 mmol/L Normal CL 99 LAB L501.6100 21.0-3 mmol/L Normal 2.0 CO2 27.0 LAB L501.6200 5-15 Normal GAP 10 Performed By: #### L500.2500, L501.4010 #### [facility], [address] TROPONIN-I Collected: 08/01/2017 Status: F Source: [place] 10:23 AM [facility] [place] [facility] TYPE CODE TESTS RESULT OUT OF RANGE REFERENCE UNITS LAB L501.4010 <0.045 ng/mL Normal < 0.020 TROPONIN-I Result Comment: TROPONIN-I EXPECTED VALUES <0.045 NEGATIVE 0.045 - 0.590 AT RISK OF UT > OR = 0.600 SUGGEST UT Not every elevated troponin is indicative of UT. These values should be used with clinical judgement in examining the patient's clinical picture for diagnosis. To establish a diagnosis of UT versus myocardial injury, there must be a demonstrated rise and/or fall in the troponin values, in addition to ischemic symptoms, EKG changes, new regional wall motion abnormality, and/or angiographical evidence. PLEASE NOTE: REFERENCE RANGES EDITED 17 Performed By: #### L500.2500, L501.4010 #### [facility] [place], [address] PROGRESS Observed: 07/14/2017 Status: COMPLETED Source: [place] 9:59 AM [facility] RE[facility]ORY HNO ID: [id number] Author: Ellis De Luna Service: (none) Author Type: Physician Type: Progress Notes Filed: 07/14/2017 10:12 AM Note Text: Patient's injury was work related and appointment time not acceptable. Discussed fact with patient that I can do Workman's comp under [facility] but have not done one in 18+ years and therefore without adequate knowledge of appropriate forms there would be a delay in his care vs seeing [facility] in [place] who handles workman's comp cases on a routine basis. Patient was agreeable with this. We were able to get Mr. Roldan in with [facility] later today for appropriate f/u. CNOV Observed: 07/14/2017 Status: COMPLETED Source: [place] 9:40 AM [facility] REPOSITORY Office Visit (FAMPWS) MICKY ROLDAN ([id number]) 1950 M Date Time Provider Department 07/14/17 9:40 AM ELLIS DE LUNA During your visit today, we recorded the following information about you: Pulse Respiration Blood pressure Weight 78/minute 18/minute 132/62 105.2 kg Ellis De Luna MD 07/14/2017 10:12 AM Signed Patient's injury was work related and appointment time not acceptable. Discussed fact with patient that I can do Workman's comp under [facility] but have not done one in 18+ years and therefore without adequate knowledge of appropriate forms there would be a delay in his care vs seeing [facility] in [place] who handles workman's comp cases on a routine basis. Patient was agreeable with this. We were able to get Mr. Roldan in with [facility] later today for appropriate f/u. Referring Provider: SELF [200] Allergies As of Date: 07/14/2017 Noted Allergy Reaction LANOLIN 02/15/2008 9 - Itching Date Reviewed: 07/14/2017 Reviewed by: Lidia Boateng - Fully Assessed Reason for Visit: Hospital Follow Up [177] Cmt: [facility] 07/03/2017. Primary Visit Diagnosis:APPOINTMENT CANCELLED Prescriptions as of 07/14/2017 Sig: METFORMIN 500 MG TABLET Take 1 tablet by mouth twice * ROSUVASTATIN 5 MG TABLET Take 1 tablet by mouth daily * INSULIN LISPRO AND LISPRO PROT * Inject 25 Units subcutaneousl* METOPROLOL TARTRATE 25 MG TAB* Take 0.5 tablets by mouth twi* PEN NEEDLE, DIABETIC 31 GAUGE* Use with 75/25 twice daily LOSARTAN 25 MG TABLET Take 1 tablet by mouth once d* ASPIRIN 81 MG TABLET,DELAYED * Take 1 tablet by mouth once d* ACETAMINOPHEN 325 MG TABLET Take 2 tablets by mouth every* BLOOD SUGAR DIAGNOSTIC STRIPS Test blood sugar 3-4 times da* LEVOTHYROXINE 125 MCG TABLET TAKE 1 TABLET BY MOUTH ONCE D* MULTI VITAMIN ORAL Take by mouth. CURCUMIN MISC [id number] C-M* Take 1 capsule by mouth three* COMPOUNDED PRESCRIPTION Take 1 capsule by mouth twice* More... Problem List As Of Date 07/14/2017 Noted Resolved Idiopathic peripheral neuropathy [G60.9] Priority: A Pyoderma, unspecified [L08.0] INVALID FOR* Priority: C Other acne [L70.8] INVALID FOR* Priority: C Seborrheic dermatitis, unspecified [L21.9] INVALID FOR* Priority: C Other psoriasis [L40.8] INVALID FOR* Priority: C XEROSIS///SEBACEOUS GLAND DIS NEC [L73.8] INVALID FOR* Priority: C Other specified disease of nail [L60.8] INVALID FOR* Priority: C Other seborrheic keratosis [L82.1] INVALID FOR* Priority: C H/O balance disorder [Z87.898] Priority: B More... PVC (premature ventricular contraction) [I49.3] Priority: A Diabetic eye exam (HCC) [Z01.00, E11.9] INVALID FOR* Priority: A More... Dyslipidemia [E78.5] INVALID FOR*02/19/2014 Well adult exam [Z00.00] INVALID FOR* Priority: D More... Colon cancer screening [Z12.11] INVALID FOR* Acquired hypothyroidism [E03.9] INVALID FOR* Priority: A Mixed hyperlipidemia [E78.2] INVALID FOR* Priority: A Prostate cancer screening [Z12.5] INVALID FOR* Uncontrolled type 2 diabetes mellitus without c*INVALID FOR*06/04/2017 Priority: A Essential hypertension with goal blood pressure*INVALID FOR* Priority: A Ex-smoker [Z87.891] INVALID FOR* Priority: C More... Plantar fasciitis, left [M72.2] INVALID FOR* Multiple lung nodules [R91.8] INVALID FOR* Priority: B More... Right-sided cerebrovascular accident (CVA) (HCC*INVALID FOR* Priority: A More... History of UT (myocardial infarction) [I25.2] INVALID FOR* Priority: A More... 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 Uncontrolled type 2 diabetes mellitus with diab*INVALID FOR* Encounter Status:Closed by ELLIS DE LUNA on 07/14/17 CR FOOT COMPLETE 3+ Observed: 07/06/2017 Status: F Source: [employer] RIGHT 12:30 PM SYSTEM REPOSITORY Patient Name: MICKY ROLDAN Diagnostic Radiology Exam Date/Time 07/06/2017 12:17:41 EDT Exam CR Foot Complete 3+ Views Right Ordering Physician ROEVRTO MOORE JULIE Accession Number [id number] CPT4 Codes 50617 () Reason For Exam pain Report Examination: Right foot three views Indication: pain Findings: No acute fracture or dislocation is noted. Degenerative changes of the IP joints are present. The soft tissues are grossly unremarkable. Impression: No acute osseous abnormality. Report Dictated on Final Dictated: 07/06/2017 12:30 pm Dictating Physician: LEWIS TABOR Signed Date and Time: 07/06/2017 12:30 pm Signed by: LEWIS TABOR Transcribed Date and Time: 07/06/2017 12:30 GLUCOSE,BEDSIDE Collected: 07/06/2017 Status: F Source: [employer] 12:24 PM SYSTEM REPOSITORY TYPE CODE TESTS RESULT OUT OF RANGE REFERENCE UNITS LAB BGLU 70-100 mg/dL High 272 Glucose,Beds yannick Result Comment: Test performed by glucose meter. Results may be 10%-15% lower than serum/plasma values. (CLIA ID [id number]) Performed By: #### BGLU #### The performing lab is in the report. HEMOGRAM W/ AUTODIFF Collected: 07/06/2017 Status: F Source: [employer] 1:04 AM SYSTEM REPOSITORY TYPE CODE TESTS RESULT OUT OF REFERENCE UNITS RANGE LAB IWBC 3.6-10.7 10*3/uL WBC 8.0 LAB RBC 4.40-5.90 10*6/uL RBC 4.79 LAB HGB 13.0-18.0 g/dL Hemoglobin 13.6 LAB HCT 40.0-52.0 % Low Hematocrit 39.9 LAB MCV 80.0-98.0 fL MCV 83.2 LAB MCH 26.0-34.0 pg MCH 28.5 LAB MCHC 32.0-36.0 % MCHC 34.2 LAB RDW 11.5-14.5 % RDW High 15.6 LAB PLT 140-440 10*3/uL Platelet 185 LAB MPV 7.4-10.4 fL MPV 9.9 LAB GRAN% 40.0-80.0 % Granulocytes 70.6 LAB LYMP% 20.0-40.0 % Low Lymphocytes 17.6 LAB MONO% 2.0-10.0 % Monocytes 6.3 LAB EOS% 1.0-6.0 % Eosinophils 4.8 LAB BAS% 0.0-2.0 % Basophils 0.7 LAB ANC 1.8-7.0 10*3/uL Abs Neutrophile Cnt 5.6 LAB ALC 1.0-4.3 10*3/uL Abs Lymph Cnt 1.4 LAB AMC 0.0-0.8 10*3/uL Abs Monocyte Cnt 0.5 LAB AEC 0.0-0.5 10*3/uL Abs Eosin Cnt 0.4 LAB ABC 0.0-0.2 10*3/uL Abs Baso Cnt 0.1 Performed By: #### ENEDINA CHRISTINE #### The performing lab is in the report. BASIC METABOLIC PANEL Collected: 07/06/2017 Status: F Source: [employer] 1:04 AM SYSTEM REPOSITORY TYPE CODE TESTS RESULT OUT OF REFERENCE UNITS RANGE LAB NA3 137-145 mmol/L Sodium 137 LAB K3 3.5-5.1 mmol/L Potassium 3.9 LAB CL3 98-107 mmol/L Chloride 98 LAB CO23 22-30 mmol/L Carbon Dioxide 30 LAB ANIN3 Anion Gap 9 LAB GLUC3 70-100 mg/dL Glucose High 187 LAB BUN3 7-20 mg/dL Urea Nitrogen 17 LAB CRET3 0.52-1.25 mg/dL Creatinine 0.82 LAB GF3BR >60 mL/min eGFR >60.0 LAB GF3WR >60 mL/min eGFR OTHER >60.0 Result Comment: Source- MDRD equation with creatinine calibration to IDMS(NKDEP) eGFR not recommended for drug dose adjustment LAB CA3 8.4-10.2 mg/dL Calcium 8.9 Performed By: #### KELTON CHRISTINE3 #### The performing lab is in the report. BASIC METABOLIC PANEL Collected: 07/05/2017 Status: F Source: [employer] 12:58 AM SYSTEM REPOSITORY TYPE CODE TESTS RESULT OUT OF REFERENCE UNITS RANGE LAB NA3 137-145 mmol/L Low Sodium 135 LAB K3 3.5-5.1 mmol/L Potassium 4.6 LAB CL3 98-107 mmol/L Low Chloride 97 LAB CO23 22-30 mmol/L Carbon High Dioxide 32 LAB ANIN3 Anion Gap 6 LAB GLUC3 70-100 mg/dL Glucose High 266 LAB BUN3 7-20 mg/dL Urea High Nitrogen 21 LAB CRET3 0.52-1.25 mg/dL Creatinine 0.90 LAB GF3BR >60 mL/min eGFR >60.0 LAB GF3WR >60 mL/min eGFR OTHER >60.0 Result Comment: Source- MDRD equation with creatinine calibration to IDMS(NKDEP) eGFR not recommended for drug dose adjustment LAB CA3 8.4-10.2 mg/dL Calcium 8.8 Performed By: #### BMP3, HEMDF #### The performing lab is in the report. HEMOGRAM W/ AUTODIFF Collected: 07/05/2017 Status: F Source: [employer] 12:58 AM SYSTEM REPOSITORY TYPE CODE TESTS RESULT OUT OF REFERENCE UNITS RANGE LAB IWBC 3.6-10.7 10*3/uL WBC 9.1 LAB RBC 4.40-5.90 10*6/uL RBC 4.52 LAB HGB 13.0-18.0 g/dL Low Hemoglobin 12.9 LAB HCT 40.0-52.0 % Low Hematocrit 38.2 LAB MCV 80.0-98.0 fL MCV 84.5 LAB MCH 26.0-34.0 pg MCH 28.7 LAB MCHC 32.0-36.0 % MCHC 33.9 LAB RDW 11.5-14.5 % RDW High 15.8 LAB PLT 140-440 10*3/uL Platelet 192 LAB MPV 7.4-10.4 fL MPV 10.0 LAB GRAN% 40.0-80.0 % Granulocytes 76.5 LAB LYMP% 20.0-40.0 % Low Lymphocytes 15.1 LAB MONO% 2.0-10.0 % Monocytes 5.0 LAB EOS% 1.0-6.0 % Eosinophils 3.0 LAB BAS% 0.0-2.0 % Basophils 0.4 LAB ANC 1.8-7.0 10*3/uL Abs Neutrophile Cnt 7.0 LAB ALC 1.0-4.3 10*3/uL Abs Lymph Cnt 1.4 LAB AMC 0.0-0.8 10*3/uL Abs Monocyte Cnt 0.5 LAB AEC 0.0-0.5 10*3/uL Abs Eosin Cnt 0.3 LAB ABC 0.0-0.2 10*3/uL Abs Baso Cnt 0.0 Performed By: #### BMP3, HEMDF #### The performing lab is in the report. HEMOGRAM Collected: 07/04/2017 Status: F Source: [employer] 12:58 AM SYSTEM REPOSITORY TYPE CODE TESTS RESULT OUT OF REFERENCE UNITS RANGE LAB IWBC 3.6-10.7 10*3/uL WBC High 11.6 LAB RBC 4.40-5.90 10*6/uL RBC 4.73 LAB HGB 13.0-18.0 g/dL Hemoglobin 13.5 LAB HCT 40.0-52.0 % Low Hematocrit 39.4 LAB MCV 80.0-98.0 fL MCV 83.4 LAB MCH 26.0-34.0 pg MCH 28.5 LAB MCHC 32.0-36.0 % MCHC 34.2 LAB RDW 11.5-14.5 % RDW High 16.0 LAB PLT 140-440 10*3/uL Platelet 200 LAB MPV 7.4-10.4 fL MPV 9.5 Performed By: #### HEMOG, BMP3 #### The performing lab is in the report. BASIC METABOLIC PANEL Collected: 07/04/2017 Status: F Source: [employer] 12:58 AM SYSTEM REPOSITORY TYPE CODE TESTS RESULT OUT OF REFERENCE UNITS RANGE LAB NA3 137-145 mmol/L Sodium 141 LAB K3 3.5-5.1 mmol/L Potassium 4.9 LAB CL3 98-107 mmol/L Chloride 104 LAB CO23 22-30 mmol/L Carbon Dioxide 30 LAB ANIN3 Anion Gap 7 LAB GLUC3 70-100 mg/dL Glucose High 236 LAB BUN3 7-20 mg/dL Urea Nitrogen 19 LAB CRET3 0.52-1.25 mg/dL Creatinine 0.97 LAB GF3BR >60 mL/min eGFR >60.0 LAB GF3WR >60 mL/min eGFR OTHER >60.0 Result Comment: Source- MDRD equation with creatinine calibration to IDMS(NKDEP) eGFR not recommended for drug dose adjustment LAB CA3 8.4-10.2 mg/dL Calcium 8.8 Performed By: #### HEMOG, BMP3 #### The performing lab is in the report. CT HEAD OR BRAIN W/O Observed: 07/03/2017 Status: F Source: [employer] CONTRAST 2:33 PM SYSTEM REPOSITORY Patient Name: MICKY ROLDAN CT Exam Date/Time 07/03/2017 14:29:[address] Head or Brain w/o Contrast Ordering Physician MD ERNA, ZABRINA NICHOLS Accession Number [id number] CPT4 Codes 83488 () Reason For Exam HEAD TRAUMA, CLOSED, MILD, ABN NEURO EXAM AND/OR RISK FACTORS Report Reason for examination: Closed head trauma, status post fall. A CT scan of the head is performed from the skull base to the vertex without contrast. Sagittal and coronal reconstructed images are reviewed. Comparison is to an earlier study from from 5:45 AM. The ventricles and sulci are prominent compatible with mild cerebral atrophy. There is no midline shift or mass effect. No intra-axial or extra-axial fluid collections are identified. The brainstem and cerebellum are unremarkable. There is mild patchy hypodensity in the periventricular and subcortical white matter consistent with chronic small vessel ischemic changes. The globes and intraorbital contents appear intact. The paranasal sinuses and mastoid air cells are well aerated There is carotid siphon and left vertebral artery atherosclerosis. The bony calvarium appears intact. There is a scalp hematoma in the right posterior parietal region. Skin carli are noted. IMPRESSION: Age-related atrophy and mild chronic small vessel ischemic changes. Report Dictated on Final Dictated: 07/03/2017 2:33 pm Dictating Physician: MD ALEJANDRO LAUREN B Signed Date and Time: 07/03/2017 2:36 pm Signed by: MD ALEJANDRO LAUREN B Transcribed Date and Time: 07/03/2017 2:33 TROPONIN I Collected: 07/03/2017 Status: F Source: [employer] 9:33 AM SYSTEM REPOSITORY TYPE CODE TESTS RESULT OUT OF REFERENCE UNITS RANGE LAB TROP4 0.000-0.034 ng/mL Troponin I 0.031 Result Comment: 0.046 - 0.400 = Indeterminate > 0.400 = Consider Myocardial Injury Performed By: #### TROPN #### The performing lab is in the report. CR CHEST PORTABLE Observed: 07/03/2017 Status: F Source: [employer] 7:42 AM SYSTEM REPOSITORY Patient Name: MICKY ROLDAN Diagnostic Radiology Exam Date/Time 07/03/2017 06:45:46 EDT Exam CR Chest Portable Ordering Physician MD MARIA ANTONIA, UMA HERNANDEZ Accession Number [id number] CPT4 Codes 06973 () Reason For Exam trauma, fall Report Reason for examination: Status post fall. Portable chest is obtained at 0640 hours. There are no comparison studies. Median sternotomy wires are present. The mediastinal silhouette is stable. The heart is upper limits of normal in size. There is diffuse interstitial prominence of uncertain acuity. There is blunting of the left costophrenic angle. No pneumothorax is seen. Report Dictated on Final Dictating Physician: MD ALEJANDRO LAUREN B Signed Date and Time: 07/03/2017 7:44 am Signed by: MD ALEJANDRO LAUREN B Transcribed Date and Time: 07/03/2017 7:45 CR TIBIA/FIBULA 2 VIEWS Observed: 07/03/2017 Status: F Source: [employer] 6:38 AM SYSTEM REPOSITORY Patient Name: MICKY ROLDAN Diagnostic Radiology Exam Date/Time 07/03/2017 06:45:46 EDT Exam CR Tibia/Fibula 2 Views Right Ordering Physician MD EM MICHAEL JAMES Accession Number [id number] CPT4 Codes 56819 () Reason For Exam trauma right leg pain Report HISTORY: Fall Three views right shoulder show no definite fractures with mild degenerative changes with calcific tendinitis. Four views right tibia and fibula show no definite fractures. Two views left forearm show no definite fractures Report Dictated on Workstation: [id number] Final Dictating Physician: MD CAMPBELL WILLIAM Signed Date and Time: 07/03/2017 6:39 am Signed by: MD CAMPBELL WILLIAM Transcribed Date and Time: 07/03/2017 6:45 CR FOREARM 2 VIEWS Observed: 07/03/2017 Status: F Source: [employer] 6:38 AM SYSTEM REPOSITORY Patient Name: MICKY ROLDAN Diagnostic Radiology Exam Date/Time 07/03/2017 06:45:46 EDT Exam CR Forearm 2 Views Left Ordering Physician MD EM MICHAEL JAMES Accession Number [id number] CPT4 Codes 33625 () Reason For Exam trauma pain Report HISTORY: Fall Three views right shoulder show no definite fractures with mild degenerative changes with calcific tendinitis. Four views right tibia and fibula show no definite fractures. Two views left forearm show no definite fractures Report Dictated on Workstation: [id number] Final Dictating Physician: MD CAMPBELL WILLIAM Signed Date and Time: 07/03/2017 6:39 am Signed by: MD CAMPBELL WILLIAM Transcribed Date and Time: 07/03/2017 6:45 CR SHOULDER 2+ VIEWS Observed: 07/03/2017 Status: F Source: [employer] RIGHT 6:38 AM SYSTEM REPOSITORY Patient Name: MICKY ROLDAN Diagnostic Radiology Exam Date/Time 07/03/2017 06:45:46 EDT Exam CR Shoulder 2+ Views Right Ordering Physician MD MARIA ANTONIA, UMA HERNANDEZ Accession Number [id number] CPT4 Codes 39232 () Reason For Exam right shoulder pain s/p fall Report HISTORY: Fall Three views right shoulder show no definite fractures with mild degenerative changes with calcific tendinitis. Four views right tibia and fibula show no definite fractures. Two views left forearm show no definite fractures Report Dictated on Workstation: [id number] Final Dictating Physician: MD CAMPBELL WILLIAM Signed Date and Time: 07/03/2017 6:39 am Signed by: MD CAMPBELL WILLIAM Transcribed Date and Time: 07/03/2017 6:45 CT HEAD OR BRAIN W/O Observed: 07/03/2017 Status: F Source: [employer] CONTRAST 6:05 AM SYSTEM REPOSITORY Patient Name: MICKY ROLDAN CT Exam Date/Time 07/03/2017 05:58:[address] Head or Brain w/o Contrast Ordering Physician MD EM MICHAEL JAMES Accession Number [id number] CPT4 Codes 90593 () Reason For Exam trauma head injury Report Reasons for examination: Fall Axial unenhanced scans of the brain were obtained. The patient has baseline minimal parenchymal volume loss and remote appearing small vessel ischemic / neurodegenerative changes in the periventricular and subcortical white matter of the cerebral hemispheres. There are dilated perivascular spaces. There is no mass lesion or brain edema. There is no hemorrhage. There is no definite evidence of acute infarction. There is no shift or herniation. The brainstem and cerebellum are unremarkable. Bone window images demonstrate no significant abnormalities. The paranasal sinuses and mastoids are unremarkable. IMPRESSION: 1. Minimal age-related atrophy and minimal remote appearing small vessel white matter chronic ischemic/neurodegenerative changes. 2. No definite evidence of acute infarction (MRI more sensitive), mass lesion, nor hemorrhage. Report Dictated on Workstation: [id number] Final Dictating Physician: MD CAMPBELL WILLIAM Signed Date and Time: 07/03/2017 6:06 am Signed by: MD CAMPBELL WILLIAM Transcribed Date and Time: 07/03/2017 6:07 CT SPINE CERVICAL W/O Observed: 07/03/2017 Status: F Source: [employer] CONTRAST 6:02 AM SYSTEM REPOSITORY Patient Name: MICKY ROLDAN CT Exam Date/Time 07/03/2017 05:58:[address] Spine Cervical w/o Contrast Ordering Physician MD EM MICHAEL JAMES Accession Number [id number] CPT4 Codes 79833 () Reason For Exam trauma Report Reasons for examination: major trauma, neck pain. Axial scans of the cervical spine are performed from the skull base to the thoracic inlet with sagittal and coronal reconstructions. There is normal alignment of the cervical vertebral bodies on the sagittal reconstructions. There is no evidence of fracture or subluxation in the cervical spine. The prevertebral soft-tissues are normal. The craniocervical junction and C1-2 junction appear normal. The odontoid is intact. Degenerative disc disease changes are seen at C4-5, C5- 6, and C6-7. IMPRESSION: No evidence of cervical spine fracture or dislocation. Degenerative changes, as described above. Calcified plaquing carotid siphons and carotid bifurcations Appears to be some interstitial thickening in lung apices --- possible scarring or active process Report Dictated on Workstation: [id number] Final Dictating Physician: MD CAMPBELL WILLIAM Signed Date and Time: 07/03/2017 6:05 am Signed by: MD CAMPBELL WILLIAM Transcribed Date and Time: 07/03/2017 6:06 CNOV Observed: 07/01/2017 Status: COMPLETED Source: [place] 2:20 PM [facility] REPOSITORY Office Visit ([facility]) MICKY ROLDAN ([id number]) 1950 M Date Time Provider Department 07/01/17 2:20 PM CARRIE FERNÁNDEZ) [facility] During your visit today, we recorded the following information about you: Pulse Respiration Blood pressure Weight 60/minute 14/minute 114/62 106.6 kg Height 1.833 m FELISA FITCH 07/01/2017 3:28 PM Signed Patient presents with: Physical SUBJECTIVE: Chief Complaint: Micky Roldan is a 66 year old male who presents for complete physical exam. New concerns today include none Patient states he had sleep study completed last week- still awaiting results. DIABETES MELLITUS: Mr. Roldan was last seen on 06/02. Since our last visit he denies excessive thirst or increased frequency of urination, chest pain or dyspnea , numbness, tingling or pain in extremities, new or unusual visual symptoms, low sugar/hypoglycemic reactions, weight loss/gain, lightheadedness/dizziness and bowel changes/loose stools. Patient does have some numbness of feet. He checks feet regularly. Reiteration of importance of diabetic foot care give Follows a diabetic diet generally not very much. He is compliant with medication(s) and is tolerating med(s) without any side effects. He reports checking his glucose on a once a day schedule with sugars in the fasting 150-200 range. Patient's last HgA1C was Hemoglobin A1C (%) Date Value 06/02/2017 9.4 12/30/2016 7.4 ) Last Ophthalmology exam was 2015- due for one now HEALTH MAINTENANCE Testicular self exam Yes Prostate cancer screening up to date patient declines OSVALDO DIABETIC FOOT EXAM due on 06/21/2015 FECAL OCCULT BLOOD due on 06/26/2015 DILATED RETINAL EXAM due on 11/10/2016 TETANUS due on 12/15/2016 PAST MEDICAL HISTORY Diagnosis Date - ACNE NEC 09/26/2007 - DISEASES OF NAIL NEC 09/26/2007 - FOLLICULITIS///HAIR DISEASES NEC 09/26/2007 - H/O balance disorder chronic due to frequent ear infections in the past. - NEVUS///BENIGN OLEGARIO SKIN TRUNK 09/26/2007 - Other psoriasis 09/26/2007 - Other specified idiopathic peripheral neuropathy - PRURITIC DISORDER NOS 09/26/2007 - PVC (premature ventricular contraction) - PYODERMA NOS 09/26/2007 - SEBORRHEIC DERMATITIS NOS 09/26/2007 - SEBORRHEIC KERATOSIS NOS 12/16/2007 - Shoulder pain 05/05/2013 - SOLAR LENGINES////DYSCHROMIA OTHER 12/16/2007 - Type II or unspecified type diabetes mellitus without mention of complication, not stated as uncontrolled - Unspecified hypothyroidism PAST SURGICAL HISTORY Procedure Laterality Date - 2D ECHO (EXEP) 01/2017 EF=50-55%, with nl function - NONE - PAST SURGICAL HISTORY OF 01/22/2017 CABG x3 FAMILY HISTORY Problem Relation Age of Onset - toxic shock [Other] [OTHER] Mother - None Father - Thyroid Sister Social History Marital status: Spouse name: Years of education: Number of children: Social History Main Topics Smoking status: Former Smoker Packs/day: 0.00 Years: 0.00 Quit date: 12/20/1997 Smokeless status: Former User Types: Snuff, Chew Alcohol use: No Drug use: No Immunization History Administered Date(s) Administered Hepatitis A vaccine 05/24/2007 12/14/2007 Hepatitis B Adult 05/24/2007 12/14/2007 02/15/2008 Influenza Vaccine, Split-Non Spec 01/22/2006 PPD ([facility]) 05/24/2007 Pneumococcal-13 Vac Conjugate 06/20/2014 Pneumovax 12/15/2006 04/26/2013 Tdap (Age 7+) 12/15/2006 ACTIVE PROBLEM LIST Idiopathic Peripheral Neuropathy Pyoderma, Unspecified Other Acne Seborrheic Dermatitis, Unspecified Other Psoriasis XEROSIS///SEBACEOUS GLAND DIS NEC Other Specified Disease of Nail Other Seborrheic Keratosis H/O Balance Disorder Pvc (Premature Ventricular Contraction) Diabetic Eye Exam (Hcc) Well Adult Exam Colon Cancer Screening Acquired Hypothyroidism Mixed Hyperlipidemia Prostate Cancer Screening Essential Hypertension With Goal Blood Pressure Less Than 130/85 Ex-Smoker Plantar Fasciitis, Left Multiple Lung Nodules Right-Sided Cerebrovascular Accident (Cva) (Formerly [facility]) History of UT (Myocardial Infarction) Coronary Artery Disease Due to Lipid Rich Plaque S/P Cabg X 3 Uncontrolled Type 2 Diabetes Mellitus Without Complication, With Long-Term Current Use of Insulin (Formerly [facility]) REVIEW OF SYSTEMS General: Denies fever, chills, night sweats, or changes in weight. Dermatologic: Denies any new skin conditions, rashes or changing moles. Eyes: Denies recent visual changes. ENT: Denies hearing loss or worsening tinnitus Respiratory: Denies any cough, dyspnea, or wheezing. Cardiovascular: Denies any chest pain with exertion or at rest, palpitations, syncope, or edema. Incision pain since CABG Gastrointestinal: Denies any nausea, vomiting, abdominal pain, heartburn, changes in bowel habit, Denies melena, Denies any rectal bleeding. Genitourinary: Denies Denies dysuria, frequency, urgency, incontinence, erectile dysfunction, and hematuria., Weak stream. Musculoskeletal: Denies any joint swelling, crepitus, joint pain, or loss of range of motion., Denies back pain. Neurologic: Denies any headaches, tremors, dizziness, vertigo, memory loss, confusion. Psychiatric: Denies any sleeping problems, history of abuse, marital discord. Hematologic/Lymphatic/Immunologic: Denies anemia, bruising, bleeding abnormalities, HIV risk factors Endocrine: Denies any heat or cold intolerance, polyuria or polydipsia. OBJECTIVE: PHYSICAL EXAMINATION: BP 114/62 Pulse 60 Resp 14 Ht 183.3 cm (6' 0.15ANDquot;) Wt 106.6 kg (235 lb) BMI 31.74 kg/m2 GENERAL APPEARANCE well appearing, alert, in no acute distress SKIN: skin color, texture, turgor normal, no rashes or lesions HEAD: No significant findings. EYES: PERRLA, EOMI, Fundoscopic exam benign. EARS: external ears normal, canals clear, TM's normal NOSE/SINUSES: Nares normal. Septum midline. OROPHARYNX: Lips, mucosa, and tongue normal, teeth and gums normal and oropharynx normal. NECK: Supple, full range of motion, no lymphadenopathy, normal thyroid, no carotid bruits and no JVD BACK: Back symmetric, Normal curvature, ROM normal, No CVAT. LUNGS: clear to auscultation HEART: Normal PMI, Regular rate and rhythm, Normal heart sounds, S1 and S2 and No murmurs. ABDOMEN: Soft, Non-tender, No palpable masses, Normal bowel sounds, No abdominal bruits and No hepatosplenomegaly. EXTREMTIES: extremities normal, no deformities, no skin discoloration, no edema, extremity pulses equal and symmetric Feet:Shoes and socks removed, normal distal pulses, sensitive to 10 gm monofilament, vibratory perception normal and vibratory perception decreased on R NEURO: Awake, alert and oriented x 3, Cranial nerves II-XII grossly intact, Reflexes symmetrical, Normal gait, No involuntary motions. GENITALIA: Penis normal. No urethral discharge. Scrotum normal to palpation. No hernias. RECTAL: Exam deferred DATA REVIEWED Component Latest Ref Rng ANDamp; Units 12/30/2016 12/31/2016 06/02/2017 Color Yellow Yellow Clarity Clear Cloudy (A) Glucose, Urine Negative mg/dL 50 (A) Bilirubin, Urine Negative Negative Ketones, Urine Negative Negative Specific [place], Ur 1.005 - 1.030 1.024 Hemoglobin/Blood,Ur Negative Negative pH, Urine 4.5 - 8.0 5.0 Protein, Urine Negative mg/dL Negative Urobilinogen Normal Normal Nitrites Negative Negative Leukest Negative Negative Comments SEE COMMENT Urine Filipe Comment SEE COMMENT WBC, Urine 0 - 5 /HPF 0-5 RBC, Urine 0 - 3 /HPF 0-3 Cast 0 /LPF SEE COMMENT (A) Epithelial Cells /HPF SEE COMMENT Protein, Total 6.3 - 8.0 g/dL 8.0 8.0 Albumin 3.9 - 4.9 g/dL 4.2 4.1 Calcium 8.5 - 10.2 mg/dL 9.4 9.4 Bilirubin, Total 0.2 - 1.3 mg/dL 0.3 0.4 Alkaline Phosphatase 36 - 108 U/L 41 64 AST 14 - 40 U/L 28 24 Glucose 74 - 99 mg/dL 133 (H) 92 BUN 9 - 24 mg/dL 24 23 Creatinine 0.73 - 1.22 mg/dL 1.16 1.33 (H) Sodium 136 - 144 mmol/L 140 140 Potassium 3.7 - 5.1 mmol/L 4.4 4.6 Chloride 97 - 105 mmol/L 102 101 CO2 22 - 30 mmol/L 25 26 Anion Gap 9 - 18 mmol/L 13 13 ALT 10 - 54 U/L 22 20 eGFR- ANDgt;60 ANDgt;60 eGFR-All Other Races . ANDgt;60 54 Triglyceride ANDlt;150 mg/dL 291 (H) 190 (H) Cholesterol, Total ANDlt;200 mg/dL 206 (H) 113 HDL Cholesterol ANDgt;39 mg/dL 36 (L) 34 (L) VLDL Cholesterol ANDlt;30 mg/dL 58 (H) 38 (H) LDL Cholesterol ANDlt;100 mg/dL 112 41 Fasting Time hrs 12 8 TC:HDL Ratio ANDlt;5.10 5.72 (H) 3.32 LDL:HDL Ratio ANDlt;2.54 3.11 1.21 Non HDL Cholesterol ANDlt;130 mg/dL 170 (H) 79 Creatinine, Ur Random (UCRR) 20 - 300 mg/dL 128.1 205.3 Albumin, Urine Random 0.0 - 23.0 mg/L ANDlt;12.0 ANDlt;12.0 Albumin/Creat Ratio 0 - 30 mg/g Not calculated Not calculated Hemoglobin A1C 4.3 - 5.6 % 7.4 (H) 9.4 (H) Estimated Average Glucose mg/dL 166 223 PSA 0.00 - 2.59 ng/mL 0.37 TSH 0.400 - 5.500 uU/mL 4.200 CK 51 - 298 U/L 153 Vitamin D 25 Hydroxy 31.0 - 80.0 ng/mL 42.5 ASSESSMENT/PLAN: 1. Well adult exam - ICD9: V70.0, ICD10: Z00.00 (primary diagnosis) - Recommended regular aerobic exercise. - Follow up for annual exam in one year. - Patient declines colonoscopy - He has IFOBT at home to complete already. 2. Uncontrolled type 2 diabetes mellitus with diabetic neuropathy, with long-term current use of insulin (HCC) - ICD9: 250.62, 357.2, V58.67, ICD10: E11.40, Z79.4, E11.65 uncontrolled - Continue current medications - Ophthalmology referral for eval/management of diabetic eye changes - Recheck labs in 3 months as ordered previously 3. Essential hypertension with goal blood pressure less than 130/85 - ICD9: 401.9, ICD10: I10 - good control - Recommended regular aerobic exercise. - Recommend home blood pressure monitoring, to bring results in on next visit - Goal of BP ANDlt;130/80 4. Mixed hyperlipidemia - ICD9: 272.2, ICD10: E78.2 - good control - Continue current medication. 5. S/P CABG x 3 - ICD9: V45.81, ICD10: Z95.1 Continue with Cardio 6. History of UT (myocardial infarction) - ICD9: 412, ICD10: I25.2 Continue with Cardio. 7. Multiple Lung Nodules Patient to schedule ordered Chest CT scan. 8. Sleep Apnea- Will obtain Sleep study results. Follow up in 3 months for recheck. FELISA FITCH PA 07/01/2017 2:58 PM Signed Please return in 3-4 months for routine visit. Labs prior to next OV. Referring Provider: ELLIS DE LUNA [[id number]] Allergies As of Date: 07/01/2017 Noted Allergy Reaction LANOLIN 02/15/2008 9 - Itching Date Reviewed: 07/01/2017 Reviewed by: Carrie (Felisa) Pradeep - Fully Assessed Reason for Visit: Physical [83] Primary Visit Diagnosis:Well adult exam [Z00.00] Other Visit Diagnoses:Uncontrolled type 2 diabetes mellitus with diabetic neuropathy, with long-term current use of insulin (HCC) [E11.40, Z79.4, E11.65] Essential hypertension with goal blood pressure less than 130/85 [I10] Multiple lung nodules [R91.8] Mixed hyperlipidemia [E78.2] 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] History of UT (myocardial infarction) [I25.2] Order(s):metFORMIN (GLUCOPHAGE) 500 mg tabletTake 1 tablet by mouth twice daily.Disp: 60 tabletRfl: 5 Prescriptions as of 07/01/2017 Sig: METFORMIN 500 MG TABLET Take 1 tablet by mouth twice * ROSUVASTATIN 5 MG TABLET Take 1 tablet by mouth daily * INSULIN LISPRO AND LISPRO PROT * Inject 25 Units subcutaneousl* METOPROLOL TARTRATE 25 MG TAB* Take 0.5 tablets by mouth twi* PEN NEEDLE, DIABETIC 31 GAUGE* Use with 75/25 twice daily LOSARTAN 25 MG TABLET Take 1 tablet by mouth once d* ASPIRIN 81 MG TABLET,DELAYED * Take 1 tablet by mouth once d* ACETAMINOPHEN 325 MG TABLET Take 2 tablets by mouth every* BLOOD SUGAR DIAGNOSTIC STRIPS Test blood sugar 3-4 times da* LEVOTHYROXINE 125 MCG TABLET TAKE 1 TABLET BY MOUTH ONCE D* MULTI VITAMIN ORAL Take by mouth. CURCUMIN MISC [id number] C-M* Take 1 capsule by mouth three* COMPOUNDED PRESCRIPTION Take 1 capsule by mouth twice* More... Problem List As Of Date 07/01/2017 Noted Resolved Idiopathic peripheral neuropathy [G60.9] Priority: A Pyoderma, unspecified [L08.0] INVALID FOR* Priority: C Other acne [L70.8] INVALID FOR* Priority: C Seborrheic dermatitis, unspecified [L21.9] INVALID FOR* Priority: C Other psoriasis [L40.8] INVALID FOR* Priority: C XEROSIS///SEBACEOUS GLAND DIS NEC [L73.8] INVALID FOR* Priority: C Other specified disease of nail [L60.8] INVALID FOR* Priority: C Other seborrheic keratosis [L82.1] INVALID FOR* Priority: C H/O balance disorder [Z87.898] Priority: B More... PVC (premature ventricular contraction) [I49.3] Priority: A Diabetic eye exam (HCC) [Z01.00, E11.9] INVALID FOR* Priority: A More... Dyslipidemia [E78.5] INVALID FOR*02/19/2014 Well adult exam [Z00.00] INVALID FOR* Priority: D More... Colon cancer screening [Z12.11] INVALID FOR* Acquired hypothyroidism [E03.9] INVALID FOR* Priority: A Mixed hyperlipidemia [E78.2] INVALID FOR* Priority: A Prostate cancer screening [Z12.5] INVALID FOR* Uncontrolled type 2 diabetes mellitus without c*INVALID FOR*06/04/2017 Priority: A Essential hypertension with goal blood pressure*INVALID FOR* Priority: A Ex-smoker [Z87.891] INVALID FOR* Priority: C More... Plantar fasciitis, left [M72.2] INVALID FOR* Multiple lung nodules [R91.8] INVALID FOR* Priority: B More... Right-sided cerebrovascular accident (CVA) (HCC*INVALID FOR* Priority: A More... History of UT (myocardial infarction) [I25.2] INVALID FOR* Priority: A More... 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 Uncontrolled type 2 diabetes mellitus with diab*INVALID FOR* Other instructions from your clinician: Please return in 3-4 months for routine visit. Labs prior to next OV. Prescriptions ordered this encounter Disp Refills Start End METFORMIN 500 MG TABLET 60 t* 5 07/01/2017 Route: ORAL Sig: Take 1 tablet by mouth twice daily. Medications Discontinued During This Encounter metFORMIN (GLUCOPHAGE) 500 mg tablet 60 t* 5 02/25/2017 07/01/2017 Route: ORAL Sig: Take 1 tablet by mouth twice daily. Disc: Reason for discontinue is not on file. Disposition: Return in about 3 months (around 09/30/2017) for 3-[address] De Luna. Follow-up and Disposition History Recorded Encounter Status:Closed by CARRIE FERNÁNDEZ on 07/01/17 PROGRESS Observed: 07/01/2017 Status: COMPLETED Source: [place] 2:11 PM [facility] REPOSITORY HNO ID: [id number] Author: Carrie Fernández (Pa) Service: (none) Author Type: Physician Lens Dotter Type: Progress Notes Filed: 07/01/2017 3:28 PM Note Text: Patient presents with: Physical SUBJECTIVE: Chief Complaint: Micky Roldan is a 66 year old male who presents for complete physical exam. New concerns today include none Patient states he had sleep study completed last week- still awaiting results. DIABETES MELLITUS: Mr. Roldan was last seen on 06/02. Since our last visit he denies excessive thirst or increased frequency of urination, chest pain or dyspnea , numbness, tingling or pain in extremities, new or unusual visual symptoms, low sugar/hypoglycemic reactions, weight loss/gain, lightheadedness/dizziness and bowel changes/loose stools. Patient does have some numbness of feet. He checks feet regularly. Reiteration of importance of diabetic foot care give Follows a diabetic diet generally not very much. He is compliant with medication(s) and is tolerating med(s) without any side effects. He reports checking his glucose on a once a day schedule with sugars in the fasting 150-200 range. Patient's last HgA1C was Hemoglobin A1C (%) Date Value 06/02/2017 9.4 12/30/2016 7.4 ) Last Ophthalmology exam was 2015- due for one now HEALTH MAINTENANCE Testicular self exam Yes Prostate cancer screening up to date patient declines OSVALDO DIABETIC FOOT EXAM due on 06/21/2015 FECAL OCCULT BLOOD due on 06/26/2015 DILATED RETINAL EXAM due on 11/10/2016 TETANUS due on 12/15/2016 PAST MEDICAL HISTORY Diagnosis Date - ACNE NEC 09/26/2007 - DISEASES OF NAIL NEC 09/26/2007 - FOLLICULITIS///HAIR DISEASES NEC 09/26/2007 - H/O balance disorder chronic due to frequent ear infections in the past. - NEVUS///BENIGN OLEGARIO SKIN TRUNK 09/26/2007 - Other psoriasis 09/26/2007 - Other specified idiopathic peripheral neuropathy - PRURITIC DISORDER NOS 09/26/2007 - PVC (premature ventricular contraction) - PYODERMA NOS 09/26/2007 - SEBORRHEIC DERMATITIS NOS 09/26/2007 - SEBORRHEIC KERATOSIS NOS 12/16/2007 - Shoulder pain 05/05/2013 - SOLAR LENGINES////DYSCHROMIA OTHER 12/16/2007 - Type II or unspecified type diabetes mellitus without mention of complication, not stated as uncontrolled - Unspecified hypothyroidism PAST SURGICAL HISTORY Procedure Laterality Date - 2D ECHO (EXEP) 01/2017 EF=50-55%, with nl function - NONE - PAST SURGICAL HISTORY OF 01/22/2017 CABG x3 FAMILY HISTORY Problem Relation Age of Onset - toxic shock [Other] [OTHER] Mother - None Father - Thyroid Sister Social History Marital status: Spouse name: Years of education: Number of children: Social History Main Topics Smoking status: Former Smoker Packs/day: 0.00 Years: 0.00 Quit date: 12/20/1997 Smokeless status: Former User Types: Snuff, Chew Alcohol use: No Drug use: No Immunization History Administered Date(s) Administered Hepatitis A vaccine 05/24/2007 12/14/2007 Hepatitis B Adult 05/24/2007 12/14/2007 02/15/2008 Influenza Vaccine, Split-Non Spec 01/22/2006 PPD ([facility]) 05/24/2007 Pneumococcal-13 Vac Conjugate 06/20/2014 Pneumovax 12/15/2006 04/26/2013 Tdap (Age 7+) 12/15/2006 ACTIVE PROBLEM LIST Idiopathic Peripheral Neuropathy Pyoderma, Unspecified Other Acne Seborrheic Dermatitis, Unspecified Other Psoriasis XEROSIS///SEBACEOUS GLAND DIS NEC Other Specified Disease of Nail Other Seborrheic Keratosis H/O Balance Disorder Pvc (Premature Ventricular Contraction) Diabetic Eye Exam (Formerly [facility]) Well Adult Exam Colon Cancer Screening Acquired Hypothyroidism Mixed Hyperlipidemia Prostate Cancer Screening Essential Hypertension With Goal Blood Pressure Less Than 130/85 Ex-Smoker Plantar Fasciitis, Left Multiple Lung Nodules Right-Sided Cerebrovascular Accident (Cva) (Formerly [facility]) History of UT (Myocardial Infarction) Coronary Artery Disease Due to Lipid Rich Plaque S/P Cabg X 3 Uncontrolled Type 2 Diabetes Mellitus Without Complication, With Long-Term Current Use of Insulin (Formerly [facility]) REVIEW OF SYSTEMS General: Denies fever, chills, night sweats, or changes in weight. Dermatologic: Denies any new skin conditions, rashes or changing moles. Eyes: Denies recent visual changes. ENT: Denies hearing loss or worsening tinnitus Respiratory: Denies any cough, dyspnea, or wheezing. Cardiovascular: Denies any chest pain with exertion or at rest, palpitations, syncope, or edema. Incision pain since CABG Gastrointestinal: Denies any nausea, vomiting, abdominal pain, heartburn, changes in bowel habit, Denies melena, Denies any rectal bleeding. Genitourinary: Denies Denies dysuria, frequency, urgency, incontinence, erectile dysfunction, and hematuria., Weak stream. Musculoskeletal: Denies any joint swelling, crepitus, joint pain, or loss of range of motion., Denies back pain. Neurologic: Denies any headaches, tremors, dizziness, vertigo, memory loss, confusion. Psychiatric: Denies any sleeping problems, history of abuse, marital discord. Hematologic/Lymphatic/Immunologic: Denies anemia, bruising, bleeding abnormalities, HIV risk factors Endocrine: Denies any heat or cold intolerance, polyuria or polydipsia. OBJECTIVE: PHYSICAL EXAMINATION: BP 114/62 Pulse 60 Resp 14 Ht 183.3 cm (6' 0.15) Wt 106.6 kg (235 lb) BMI 31.74 kg/m2 GENERAL APPEARANCE well appearing, alert, in no acute distress SKIN: skin color, texture, turgor normal, no rashes or lesions HEAD: No significant findings. EYES: PERRLA, EOMI, Fundoscopic exam benign. EARS: external ears normal, canals clear, TM's normal NOSE/SINUSES: Nares normal. Septum midline. OROPHARYNX: Lips, mucosa, and tongue normal, teeth and gums normal and oropharynx normal. NECK: Supple, full range of motion, no lymphadenopathy, normal thyroid, no carotid bruits and no JVD BACK: Back symmetric, Normal curvature, ROM normal, No CVAT. LUNGS: clear to auscultation HEART: Normal PMI, Regular rate and rhythm, Normal heart sounds, S1 and S2 and No murmurs. ABDOMEN: Soft, Non-tender, No palpable masses, Normal bowel sounds, No abdominal bruits and No hepatosplenomegaly. EXTREMTIES: extremities normal, no deformities, no skin discoloration, no edema, extremity pulses equal and symmetric Feet:Shoes and socks removed, normal distal pulses, sensitive to 10 gm monofilament, vibratory perception normal and vibratory perception decreased on R NEURO: Awake, alert and oriented x 3, Cranial nerves II-XII grossly intact, Reflexes symmetrical, Normal gait, No involuntary motions. GENITALIA: Penis normal. No urethral discharge. Scrotum normal to palpation. No hernias. RECTAL: Exam deferred DATA REVIEWED Component Latest Ref Rng AND Units 12/30/2016 12/31/2016 06/02/2017 Color Yellow Yellow Clarity Clear Cloudy (A) Glucose, Urine Negative mg/dL 50 (A) Bilirubin, Urine Negative Negative Ketones, Urine Negative Negative Specific [place], Ur 1.005 - 1.030 1.024 Hemoglobin/Blood,Ur Negative Negative pH, Urine 4.5 - 8.0 5.0 Protein, Urine Negative mg/dL Negative Urobilinogen Normal Normal Nitrites Negative Negative Leukest Negative Negative Comments SEE COMMENT Urine Filipe Comment SEE COMMENT WBC, Urine 0 - 5 /HPF 0-5 RBC, Urine 0 - 3 /HPF 0-3 Cast 0 /LPF SEE COMMENT (A) Epithelial Cells /HPF SEE COMMENT Protein, Total 6.3 - 8.0 g/dL 8.0 8.0 Albumin 3.9 - 4.9 g/dL 4.2 4.1 Calcium 8.5 - 10.2 mg/dL 9.4 9.4 Bilirubin, Total 0.2 - 1.3 mg/dL 0.3 0.4 Alkaline Phosphatase 36 - 108 U/L 41 64 AST 14 - 40 U/L 28 24 Glucose 74 - 99 mg/dL 133 (H) 92 BUN 9 - 24 mg/dL 24 23 Creatinine 0.73 - 1.22 mg/dL 1.16 1.33 (H) Sodium 136 - 144 mmol/L 140 140 Potassium 3.7 - 5.1 mmol/L 4.4 4.6 Chloride 97 - 105 mmol/L 102 101 CO2 22 - 30 mmol/L 25 26 Anion Gap 9 - 18 mmol/L 13 13 ALT 10 - 54 U/L 22 20 eGFR- >60 >60 eGFR-All Other Races . >60 54 Triglyceride <150 mg/dL 291 (H) 190 (H) Cholesterol, Total <200 mg/dL 206 (H) 113 HDL Cholesterol >39 mg/dL 36 (L) 34 (L) VLDL Cholesterol <30 mg/dL 58 (H) 38 (H) LDL Cholesterol <100 mg/dL 112 41 Fasting Time hrs 12 8 TC:HDL Ratio <5.10 5.72 (H) 3.32 LDL:HDL Ratio <2.54 3.11 1.21 Non HDL Cholesterol <130 mg/dL 170 (H) 79 Creatinine, Ur Random (UCRR) 20 - 300 mg/dL 128.1 205.3 Albumin, Urine Random 0.0 - 23.0 mg/L <12.0 <12.0 Albumin/Creat Ratio 0 - 30 mg/g Not calculated Not calculated Hemoglobin A1C 4.3 - 5.6 % 7.4 (H) 9.4 (H) Estimated Average Glucose mg/dL 166 223 PSA 0.00 - 2.59 ng/mL 0.37 TSH 0.400 - 5.500 uU/mL 4.200 CK 51 - 298 U/L 153 Vitamin D 25 Hydroxy 31.0 - 80.0 ng/mL 42.5 ASSESSMENT/PLAN: 1. Well adult exam - ICD9: V70.0, ICD10: Z00.00 (primary diagnosis) - Recommended regular aerobic exercise. - Follow up for annual exam in one year. - Patient declines colonoscopy - He has IFOBT at home to complete already. 2. Uncontrolled type 2 diabetes mellitus with diabetic neuropathy, with long-term current use of insulin (HCC) - ICD9: 250.62, 357.2, V58.67, ICD10: E11.40, Z79.4, E11.65 uncontrolled - Continue current medications - Ophthalmology referral for eval/management of diabetic eye changes - Recheck labs in 3 months as ordered previously 3. Essential hypertension with goal blood pressure less than 130/85 - ICD9: 401.9, ICD10: I10 - good control - Recommended regular aerobic exercise. - Recommend home blood pressure monitoring, to bring results in on next visit - Goal of BP <130/80 4. Mixed hyperlipidemia - ICD9: 272.2, ICD10: E78.2 - good control - Continue current medication. 5. S/P CABG x 3 - ICD9: V45.81, ICD10: Z95.1 Continue with Cardio 6. History of UT (myocardial infarction) - ICD9: 412, ICD10: I25.2 Continue with Cardio. 7. Multiple Lung Nodules Patient to schedule ordered Chest CT scan. 8. Sleep Apnea- Will obtain Sleep study results. Follow up in 3 months for recheck. FELISA FITCH CARDIOLOGY VISIT Observed: 06/30/2017 Status: F Source: [place] RE[place] 8:22 AM [facility] [place] [facility] [address] [place] [address] OFFICE VISIT Date of Service: 06/28/17 MR#: [id number] Acct: [id number] Name: MICKY ROLDAN Rep #: [id number] : 1950 Provider: MARIO Hensley Age/Sex: 66/M [place] [facility] Status: Signed HPI HPI Details: MICKY ROLDAN, is a 66 M who presents to the office today for a cardiovascular outpatient follow-up. He has a history of coronary artery disease with a non-ST elevated myocardial infarction in December 2016 and is status post bypass surgery in January 2017 at [facility] with a THRASHER to LAD, reverse SVG to the posterior lateral left ventricular branch, and reverse SVG to obtuse marginal. He also has history of hypertension, hyperlipidemia, and diabetes. Pt. denies chest, arm, jaw, or neck discomfort. His exercise tolerance is stable with cardiac rehab. Pt. denies symptoms of CHF, palpitations, near syncope, or syncopal episodes. Pt. denies edema or claudication issues. Pt. denies orthopnea, fever, chills, blood in urine, blood in stool, myalgia, or unexplainable fatigue. Pt. states feeling a PVC rarely without any secondary symptoms. He continues to get dizziness and lightheadedness with which position changes though better compared to prior to last office visit. He states having history of PND and recently undergone a a sleep study. He states bypass incision pain at times. Intake Vital Signs06/28/17 Height 6 ft 1 in 06/28/17 Weight: 237 lb 06/28/17 Body Mass Index (BMI) 31.2 06/28/17 Blood Pressure 118/64 Intake Visit Reasons: 6 M Rn Bsn Required: No Accompanied by: none Is patient in pain?: Yes (incisional pain) Pain scale (1-10): 1 Allergies atorvastatin [From Lipitor] Adverse Reaction (Mild, Verified 06/28/17 09:26) mylgia lanolin Adverse Reaction (Unknown, Unverified 03/18/17 10:29) Unknown Medications Glucosamine/Chondroitin A/MSM [Cloqtykombh-Njyytbmwole-VZX Tb] 1 ea PO BID 01/19/17 [History Confirmed 06/28/17] Levothyroxine [Synthroid] 125 mcg PO DAILY 01/19/17 [History Confirmed 06/28/17] Multivitamin with Iron [Multivitamins with Iron] 1 ea PO DAILY 01/19/17 [History Confirmed 06/28/17] Turmeric Root Extract [Turmeric] 500 mg PO BID 01/19/17 [History Confirmed 06/28/17] aspirin 81 mg tablet,delayed release 81 mg PO QDAY 03/18/17 [History Confirmed 06/28/17] insulin lispro protamine-lispro 100 unit/mL (75-25) subcutaneous pen 20 unit SC BID ml 03/19/17 [History Confirmed 06/28/17] metformin 500 mg tablet 500 mg PO BID 03/19/17 [History Confirmed 06/28/17] acetaminophen 325 mg tablet 325 mg PO .As Needed tab 06/15/17 [History Confirmed 06/28/17] metoprolol tartrate 25 mg tablet 12.5 mg PO BID #90 tab 06/24/17 [Rx Confirmed 06/28/17] losartan 25 mg tablet 25 mg PO QDAY 06/28/17 [History Confirmed 06/28/17] Ejection fraction %: 50 to 54 PFSH Medical History Essential (primary) hypertension (Chronic) Atherosclerosis of chitina coronary artery of chitina heart without angina pectoris (Chronic) Unstable angina pectoris (Acute) NSTEMI (non-ST elevated myocardial infarction) (Acute) Hyperlipidemia (Chronic) Diabetes mellitus (Chronic) Thyroid disorder (Chronic) History of left heart catheterization (Chronic) Surgical History Hx of CABG (Chronic 01/21/17) Family History Sister CAD (coronary artery disease) Diabetes Brother CAD (coronary artery disease) Social History Smoking Status: Former smoker how long ago did patient quit smokin alcohol intake: never substance use type: does not use caffeine: Yes Type: coffee Number of servings: 1 what type of physical activity do you participate in: none seatbelt use: always do you feel safe at home: Yes ROS Const Const: Negative for weakness, body ache, fever(s), chills or fatigue ENT ENT: Positive for dizziness Cardio Chest Pain: No Palpitations: No Edema: None Muscle aches with walking: None Resp Respiratory: Negative for SOB with activity, SOB at rest, SOB orthopnea\SOB lying down or paroxysmal nocturnal dyspnea GI GI: Negative nausea, black,tarry stools, bright, red blood in stools or vomiting blood/hematemesis : Negative for hematuria or frequent nighttime urination/ nocturia Musc Musc: Negative for muscle aches/ myalgia Neuro Neuro: Positive for lightheadedness and dizziness; negative for near syncope, syncope, orthostatic symptoms or weakness Endo Endo: Negative for fatigue Cardiology Exam Const Appearance: cooperative, healthy appearing, comfortable and no acute distress Orientation: alert, awake and oriented x3 Head Head: normal to inspection Mouth: oral mucosae normal Neck Neck: no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 [id number] Insurance:AULTCAREPolicy CLOYESDOB: Community [address] Number: [id number] [id number] Repository [address]Fjq: ([phone]) Date:1316-80-83UD [phone] (HP) [address] [address]UG: 08/09/2017 Secondary Insurance:SELF NOT GIVENUNK [place] PAY INSURANCEPolicy Community Number: Effective Hospital Date:2017-08-03 Repository 08/01/2017 MICKY P Primary MICKY P [place] [id number] Insurance:AULTCAREPolicy CLOYESDOB: Community [address] Number: [id number] [id number] Repository [address]Eja: (234) Date:4695-76-66JI [phone] (HP) [address] [address]OU: 08/01/2017 Secondary Insurance:SELF NOT GIVENUNK [place] PAY INSURANCEPolicy Community Number: Effective Hospital Date:2017-08-01 Repository 08/01/2017 MICKY P Primary MICKY P [place] [id number] Insurance:AULTCAREPolicy CLOYESDOB: Community [address] Number: [id number] [id number] Repository 226[address]Lav: ([phone]) Date:8560-34-40PA [phone] (HP) [address] [address]FW: 08/01/2017 Secondary Insurance:SELF NOT GIVENUNK [place] PAY INSURANCEPolicy Community Number: Effective Hospital Date:2017-08-01 Repository 08/01/2017 MICKY P Primary MICKY P [place] [id number] Insurance:AULTCAREPolicy CLOYESDOB: [facility] [address] Number: [id number] [id number] Repository 534[address]Kbg: ([phone]) Date:2831-28-83VN [phone] () [address] [address]XM: 08/01/2017 Secondary Insurance:SELF NOT GIVENUNK [place] PAY INSURANCEPolicy Community Number: Effective Hospital Date:2017-08-01 Repository 08/01/2017 MICKY P Primary MICKY P [place] [id number] Insurance:AULTCAREPolicy CLOYESDOB: [facility] [address] Number: [id number] [id number] Repository 8[address]Flh: (234) Date:8888-39-19FG [phone] () [address] [address]EX: 08/01/2017 Secondary Insurance:SELF NOT GIVENUNK [place] PAY INSURANCEPolicy Community Number: Effective Hospital Date:2017-08-01 Repository 08/01/2017 MICKY P Primary MICKY P [place] [id number] Insurance:AULTCAREPolicy CLOYESDOB: [facility] [address] Number: [id number] [id number] Repository [address]Gnn: (234) Date:8361-02-90HZ [phone] () [address] [address]RP: 08/01/2017 Secondary Insurance:OBWC MICKY P Tammy DEPT OF LABORPolicy CLOYESDOB: Community Number: [id number] Hospital [id number] Repository Date:4998-51-86QY [address] [address]CN: 08/01/2017 Tertiary Insurance:SELF NOT GIVENUNK [place] PAY INSURANCEPolicy Community Number: Effective Hospital Date:2017-08-01 Repository 07/03/2017 Micky Primary Micky [facility] CloyesDOB: Insurance:Workers CloyesDOB: System CompensationPolicy [id number] Repository Edison Number: Effective Date: [place], [place] [address]Kje: () 07/03/2017 Micky Primary Micky [facility] CloyesDOB: Insurance:Workers CloyesDOB: System CompensationPolicy [id number] Repository [place] Number: Effective Date: [place], [place] [address]Jnc: () 06/30/2017 MICKY P Primary MICKY P [place] [id number] Insurance:AULTCAREPolicy CLOYESDOB: [facility] DRAPT Number: [id number] [id number] Repository [address]Cge: (234) Date:2464-00-35PR [phone] () [address] [place] [address]VW: 06/30/2017 Secondary Insurance:SELF NOT GIVENUNK [place] PAY INSURANCEPolicy Community Number: Effective Hospital Date:2017-06-20 Repository 06/28/2017 MICKY P Primary MICKY P [place] [id number] Insurance:AULTCAREPolicy CLOYESDOB: [facility] Number: [id number] [id number] Repository [address]Erj: (234) Date:8692-50-63EB [phone] () [address] [address]GD: 06/28/2017 Secondary Insurance:SELF NOT GIVENUNK [place] PAY INSURANCEPolicy Community Number: Effective Hospital Date:2017-06-28 Repository 06/25/2017 MICKY P Primary MICKY P [place] [id number] Insurance:AULTCAREPolicy CLOYESDOB: Community [address] Number: [id number] [id number] Repository [address]Qkg: (234) Date:0575-79-54AP [phone] () [address] [address]CL: 06/25/2017 Secondary Insurance:SELF NOT GIVENUNK [place] PAY INSURANCEPolicy Community Number: Effective Hospital Date:2017-06-25 Repository 06/23/2017 MICKY P Primary MICKY P [place] [id number] Insurance:AULTCAREPolicy CLOYESDOB: Community [address] Number: [id number] [id number] Repository [address]Ocv: (234) Date:6416-12-34PM [phone] () [address] [place] [address]FB: 06/23/2017 Secondary Insurance:SELF NOT GIVENUNK [place] PAY INSURANCEPolicy Community Number: Effective Hospital Date:2017-06-07 Repository 06/09/2017 MICKY P Primary MICKY P [place] [id number] Insurance:AULTCAREPolicy CLOYESDOB: Community [address] Number: [id number] [id number] Repository [address]Evi: (234) Date:7996-99-89ZC [phone] () [address] [address]VV: 06/09/2017 Secondary Insurance:SELF NOT GIVENUNK [place] PAY INSURANCEPolicy Community Number: Effective Hospital Date:2017-05-20 Repository 05/19/2017 MICKY P Primary MICKY P [place] [id number] Insurance:AULTCAREPolicy CLOYESDOB: Community [address] Number: [id number] [id number] Repository [address]Ikk: (234) Date:4010-28-31DY [phone] () [address] [address]SJ: 05/19/2017 Secondary Insurance:SELF NOT GIVENUNK [place] PAY INSURANCEPolicy Community Number: Effective Hospital Date:2017-04-22 Repository 04/28/2017 MICKY P Primary MICKY P [place] [id number] Insurance:AULTCAREPolicy CLOYESDOB: Community [address] Number: [id number] [id number] Repository 276[address]Ter: (234) Date:8015-94-75SD [phone] () [address] [place], [place] [address]WP: 04/28/2017 Secondary Insurance:SELF NOT GIVENUNK [place] PAY INSURANCEPolicy Community Number: Effective Hospital Date:2017-04-14 Repository 04/21/2017 MICKY P Primary MICKY P [place] [id number] Insurance:AULTCAREPolicy CLOYESDOB: [facility] [address] Number: [id number] [id number] Repository [address]Rui: (234) Date:7361-31-88NA [phone] () [address] [address]CF: 04/21/2017 Secondary Insurance:SELF NOT GIVENUNK [place] PAY INSURANCEPolicy Community Number: Effective Hospital Date:2017-03-26 Repository
== END ==
PROVIDERS: Family Provider Family Medicine; PCP Family Medicine
DX: R07.9 Chest pain, unspecified (principal); I25.10 Atherosclerotic heart disease of native coronary artery without angina pectoris; E78.5 Hyperlipidemia, unspecified; Z95.1 Presence of aortocoronary bypass graft; E11.42 Type 2 diabetes mellitus with diabetic polyneuropathy
CPT/HCPCS: 36415; 80048

== ENCOUNTER → 2018-07-12 06:56 | Outpatient (CLI) | payer OTHER, SELFPAY ==
[2018-05-25 15:30] VITALS: BMI 32.1
--- NOTE | 2018-07-12 12:33 | STRESSREP ---
Stress Test Report Date: 07-12-18 Procedure: Exercise tolerance test/imaging study Indications: Chest pain; CAD; PCI; CABG Consent: Per the patient Procedure: The patient exercised on a Get protocol for 5 minutes completing Stage I and 2 minutes of Stage II achieving a peak heart rate of 137 bpm (89 % predicted maximal heart rate) with a peak blood pressure 178/80 mmHg and a peak MET capacity of 7 METs. The baseline ECG demonstrated sinus bradycardia; right bundle branch block pattern. The peak exercise ECG demonstrated continued right bundle branch block pattern. There was an occasional PVCs pretest and in recovery. The functional capacity was considered decreased. There was no complaint of chest discomfort during exercise or recovery. The examination was discontinued secondary to dyspnea and leg discomfort. Impression: 1. Technically adequate (percent predicted maximal heart rate greater than 85%) exercise tolerance test 2. Peak exercise ECG with continued right bundle branch block pattern 3. There was an occasional PVCs pretest and in recovery 4. Nuclear images pending Myocardial perfusion imaging study: Technique: The patient was injected with 14.7 mCi of technetium 99m Cardiolite and subsequently rest SPECT Cardiolite nuclear imaging was obtained in the horizontal long, vertical long, and short axis views. The patient exercised on a Get protocol for 5 minutes completing Stage I and 2 minutes of Stage II achieving a peak heart rate of 137 bpm (89 % predicted maximal heart rate) with a peak blood pressure 178/80 mmHg and a peak MET capacity of 7 METs. The patient was injected with 44.7 mCi of technetium 99m Cardiolite and subsequently stress SPECT Cardiolite nuclear imaging was obtained in the horizontal long, vertical long, and short axis views. A gated Cardiolite study at peak stress was obtained. Interpretation: Rest and stress SPECT Cardiolite nuclear imaging status post realignment, normalization, and attenuation correction, demonstrates area of diminished absence of myocardial perfusion/tracer uptake in portions of the basal to distal inferior lateral/inferior apical/lateral apical segments which appears following stress to be somewhat more prominent in the mid to distal inferolateral and associated apical segments. There are similar type findings on the resting and stress polar map images.. There is diminished and systolic thickening and brightening.. The gated Cardiolite study demonstrates the gated Cardiolite study demonstrates diminished myocardial thickening and inward wall motion.. The reported LVEF is 41 %. Impression: 1. Rest and stress SPECT Cardiolite nuclear imaging demonstrate myocardial perfusion changes appearing compatible with an area of previous myocardial injury/infarction involving portions of the inferolateral segments with post stress myocardial perfusion changes appearing compatible with mis-infarct related myocardial ischemia involving portions of the mid to distal inferolateral and associated apical segments. 2. The gated Cardiolite study reports an LVEF of 41 %. This note was generated with [employer] software. It may contain incorrect words, spelling, and punctuation that were not noted in checking the note before signing.
== END ==
PROVIDERS: Family Provider Family Medicine; PCP Family Medicine; Referring Provider Internal Medicine Cardiovascular Disease; Visit Provider Internal Medicine Cardiovascular Disease
DX: I25.10 Atherosclerotic heart disease of native coronary artery without angina pectoris (principal); Z95.1 Presence of aortocoronary bypass graft; Z95.5 Presence of coronary angioplasty implant and graft
CPT/HCPCS: 78452; 93017; A9500; A4216

== ENCOUNTER → 2018-07-26 16:10 | Outpatient (CLI) | payer OTHER, SELFPAY ==
[2018-07-26 11:18] VITALS: BMI 32.1
[2018-07-26 17:35] LABS: Hematocrit 44.3 % (40-54); Hemoglobin 14.6 g/dl (13.0-16.5); Mean Corpuscular Hgb 29.1 pg (27.0-32.0); Mean Corpuscular Volume 88.4 fL (80-94); Mean Platelet Vol. 11.8 fl (6.2-12.0); Partial Thromboplast Time 31.3 Seconds (24.1-36.2); Platelet Count 174 K/mm3 (150-450); RBC Distribution Width CV 14.8 % (11.6-14.6); RBC Distribution Width SD 47.2 fl (35.1-43.9); Red Blood Count 5.01 M/mm3 (4.6-6.2); Scan Indicated on CBC? Y/N NO
[2018-07-26 18:18] LABS: Anion Gap 8 (5-15); BUN 25 mg/dL (7-18); BUN/Creat Ratio 18.5 RATIO (10-20); Chloride 103 mmol/L (98-107); Creatinine, Serum 1.35 mg/dL (0.70-1.30); EST Glomerular Filtration Rate 56 mL/min (>60); Est Glom Filt Rate - Afr Amer 68 mL/min (>60); Glucose 212 mg/dL (74-106); Potassium 4.6 mmol/L (3.5-5.1); Sodium Level 138 mmol/L (136-145)
== END ==
PROVIDERS: Family Provider Family Medicine; PCP Family Medicine; Visit Provider Internal Medicine Cardiovascular Disease
DX: I25.10 Atherosclerotic heart disease of native coronary artery without angina pectoris (principal); R07.9 Chest pain, unspecified; Z95.5 Presence of coronary angioplasty implant and graft; Z95.1 Presence of aortocoronary bypass graft
CPT/HCPCS: 80048; 85027; 85610; 85730

== ENCOUNTER 2018-08-06 09:28 | Emergency (ER) | payer OTHER, SELFPAY ==
[2018-07-26 11:18] VITALS: BMI 32.1
[2018-08-06 09:30] VITALS: BP 155/61; PULSE 54; RESP 16; TEMP 36.4; O2SAT 96; BMI 31.6
--- NOTE | 2018-08-06 09:42 | EKG12_ITS ---
Test Reason : DIZZINESS Blood Pressure : / mmHG Vent. Rate : 052 BPM Atrial Rate : 052 BPM P-R Int : 236 ms QRS Dur : 148 ms QT Int : 512 ms P-R-T Axes : 045 -69 130 degrees QTc Int : 476 ms Sinus bradycardia with marked sinus arrhythmia with 1st degree A-V block Right bundle branch block Left anterior fascicular block Bifascicular block T wave abnormality, consider lateral ischemia Abnormal ECG Confirmed by ERICKA WILLETT, EDER ([id number]), pictures editor JESSIKA BUSTILLO ([id number]) on 08/08/2018 4:02:15 PM Referred By: KAL Confirmed By:EDER BARNETT MD
--- NOTE | 2018-08-06 09:52 | ED.VISSUMM ---
- ER Visit Summary Date of Service: 08/06/18 Chief Complaint: Dizzy History of Present Illness: The patient is a 67 M who was at [facility] this morning. Patient states he was standing a short time and started to feel dizzy as if the room was moving. He states symptoms improved after he sat down to rest. He denies chest pain. He has a history of palpitations but states they were no worse than baseline. He is a diabetic but states his blood sugars are okay. He is scheduled for a heart cath in 3 days due to an abnormal stress. He has had bypass surgery along with 2 cardiac stents. Patient does know he had diarrhea the last 3 or 4 days and thinks this may be contributing to his current symptoms. Physical Examination: Blood pressure is 155/61, temperature 97.5, heart rate 54, respiratory rate 16, pulse ox 96% on room air. Patient sitting upright in bed no acute distress. Heart is bradycardic and regular. Lung sounds are clear. Abdomen is soft and nontender. Hypoactive bowel sounds noted. Test Results: EKG is sinus bradycardia 52 bpm with bifascicular block. CBC and chemistry studies remarkable for glucose of 192. BUN is 30 and creatinine is 1.48. Creatinine on July 26 was 1.35. Emergency Department Course and Treatment: Patient was given a liter of IV fluids here. He had no further dizziness. Patient is supposed to have a heart cath in [address] Milton and he will make sure the patient's blood work is rechecked prior to procedure. Treatment Plan: [] Disposition: Discharge Impression: 1. Dizziness, resolved 2. Acute on chronic renal insufficiency This note was generated with [employer] dictation software. It may contain incorrect words, spelling, and punctuation that were not noted in review of the chart prior to signing ED Disposition - Plan for ED Patient: Disposition: Home or Assisted Living Instructions: ED Dehydration Referrals: Ellis Fox MD [Primary Care Provider] - Additional Instructions: Follow-up on Wednesday for heart cath as scheduled.
--- NOTE | 2018-08-06 09:55 | ED.DCSUM_ITS ---
- ER Visit Summary Date of Service: 08/06/18 Chief Complaint: Dizzy History of Present Illness: The patient is a 67 M who was at [facility] this morning. Patient states he was standing a short time and started to feel dizzy as if the room was moving. He states symptoms improved after he sat down to rest. He denies chest pain. He has a history of palpitations but states they were no worse than baseline. He is a diabetic but states his blood sugars are okay. He is scheduled for a heart cath in 3 days due to an abnormal stress. He has had bypass surgery along with 2 cardiac stents. Patient does know he had diarrhea the last 3 or 4 days and thinks this may be contributing to his current symptoms. Physical Examination: Blood pressure is 155/61, temperature 97.5, heart rate 54, respiratory rate 16, pulse ox 96% on room air. Patient sitting upright in bed no acute distress. Heart is bradycardic and regular. Lung sounds are clear. Abdomen is soft and nontender. Hypoactive bowel sounds noted. Test Results: EKG is sinus bradycardia 52 bpm with bifascicular block. CBC and chemistry studies remarkable for glucose of 192. BUN is 30 and creatinine is 1.48. Creatinine on July 26 was 1.35. Emergency Department Course and Treatment: Patient was given a liter of IV fluids here. He had no further dizziness. Patient is supposed to have a heart cath in [address] Milton and he will make sure the patient's blood work is rechecked prior to procedure. Treatment Plan: [] Disposition: Discharge Impression: 1. Dizziness, resolved 2. Acute on chronic renal insufficiency This note was generated with [employer] dictation software. It may contain incorrect words, spelling, and punctuation that were not noted in review of the chart anna or to signing ED Disposition - Plan for ED Patient: Disposition: Home or Assisted Living Instructions: ED Dehydration Referrals: Ellis Fox MD [Primary Care Provider] - Additional Instructions: Follow-up on Wednesday for heart cath as scheduled.
[2018-08-06] MEDS: 0.9% Normal Saline 1,000 ML 1000 ML IV (09:56)
[2018-08-06 09:59] LABS: Absolute Lymphocyte Count 2.02 X10^3/ul (0.83-4.51); Absolute Neutrophil Count 5.2 X10^3/uL (2.0-7.7); Basophil# 0.03 X10^3/uL; Basophil% 0.4 % (0-1); Eosinophil# 0.18 X10^3/uL; Eosinophils% 2.3 % (0-5); Hematocrit 44.6 % (40-54); Hemoglobin 15.3 g/dl (13.0-16.5); Lymphocyte # 2.02 X10^3/ul (4.0); Lymphocyte % 25.6 % (19-41); Mean Corp Hgb Conc 34.3 g/gl (32-36); Mean Corpuscular Hgb 29.9 pg (27.0-32.0); Mean Corpuscular Volume 87.3 fL (80-94); Mean Platelet Vol. 11.3 fl (6.2-12.0); Monocyte# 0.44 X10^3/uL; Monocyte% 5.6 % (0-10); Neutrophil # 5.18 X10^3/uL (2.7-7.7); Neutrophil % 65.5 % (47-70); Platelet Count 164 K/mm3 (150-450); RBC Distribution Width CV 14.2 % (11.6-14.6); RBC Distribution Width SD 45.4 fl (35.1-43.9); Red Blood Count 5.11 M/mm3 (4.6-6.2); White Blood Count 7.9 K/mm3 (4.4-11.0)
[2018-08-06 10:00] LABS: POSITIVE COUNT NO; POSITIVE DIFFERENTIAL NO; POSITIVE MORPHOLOGY NO
[2018-08-06 10:20] VITALS: BP 144/61; PULSE 48; RESP 18; O2SAT 94
[2018-08-06 10:30] LABS: Anion Gap 6 (5-15); BUN 30 mg/dL (7-18); BUN/Creat Ratio 20.3 RATIO (10-20); Chloride 105 mmol/L (98-107); Creatinine, Serum 1.48 mg/dL (0.70-1.30); EST Glomerular Filtration Rate 50 mL/min (>60); Est Glom Filt Rate - Afr Amer 61 mL/min (>60); Estimated Creatinine Clearance 54.74 ml/min; Glucose 192 mg/dL (74-106); Potassium 4.3 mmol/L (3.5-5.1); Sodium Level 137 mmol/L (136-145)
[2018-08-06 11:23] VITALS: BP 135/54; PULSE 52; RESP 16; O2SAT 97
== END 2018-08-06 11:24 | disposition home or self-care (01) ==
PROVIDERS: Emergency Provider Emergency Medicine; Family Provider Family Medicine; PCP Family Medicine
DX: R42 Dizziness and giddiness (principal); R19.7 Diarrhea, unspecified; N18.9 Chronic kidney disease, unspecified; R00.1 Bradycardia, unspecified; I45.2 Bifascicular block; E11.9 Type 2 diabetes mellitus without complications; I12.9 Hypertensive chronic kidney disease with stage 1 through stage 4 chronic kidney disease, or unspecified chronic kidney disease; E78.00 Pure hypercholesterolemia, unspecified; I25.10 Atherosclerotic heart disease of native coronary artery without angina pectoris; I25.2 Old myocardial infarction; Z86.73 Personal history of transient ischemic attack (TIA), and cerebral infarction without residual deficits; Z95.1 Presence of aortocoronary bypass graft; Z87.891 Personal history of nicotine dependence; Z95.5 Presence of coronary angioplasty implant and graft
CPT/HCPCS: 80048; 85025; 93005; 96360; 99284; J7030; A4216

== ENCOUNTER 2018-08-09 07:33 | Day surgery (SDC) | payer OTHER, SELFPAY ==
[2018-05-25 15:30] VITALS: BMI 32.1
--- NOTE | 2018-07-27 13:35 | HP_ITS ---
HPI HPI Surgical H&P: Yes Details: MICKY ABDI, is a 67 M who presents to the office today for an updated history and physical for an abnormal stress test for chest discomfort He has a history of coronary artery disease with a non-ST elevated myocardial infarction in December 2016 and is status post bypass surgery in January 2017 at [place] with a THRSAHER to LAD, reverse SVG to the posterior lateral left ventricular branch, and reverse SVG to obtuse marginal. He also underwent angioplasty and PCI to proximal ramus intermedius and mid left circumflex in March 2018 at [place]. He also has history of hypertension, hyperlipidemia, WILLIAN with Bipap, CVA in January 2018, and diabetes. Pt sts that initially after his heart cath he felt good, he now notes that he feels worse. He notes that he is having fluttering, feels like he cant catch his breath. He sts that the flutter time varies, it occurs most days of the week. He does have mid sternal chest pain. He feels that something is not right inside. He does not feel that he has any worsening SOB. He does have lightheadedness/dizziness. He does not have any claudication. He does not have any edema. He did use his NTG a few weeks ago and this did help with his symptoms. Intake Vital Signs 07/26/18 Body Mass Index (BMI) 32.1 07/26/18 Height 6 ft 1 in 07/26/18 Weight: 245 lb 07/26/18 Body Mass Index (BMI) 32.3 07/26/18 Blood Pressure 128/60 H 07/26/18 Pulse Rate 60 Intake Visit Reasons: Update H & P Allergies atorvastatin [From Lipitor] Adverse Reaction (Mild, Verified 07/26/18 11:06) mylagia lanolin Adverse Reaction (Unknown, Verified 07/26/18 11:06) Unknown Medications Levothyroxine [Synthroid] 125 mcg PO DAILY 01/19/17 [History Confirmed 07/26/18] Multivitamin with Iron [Multivitamins with Iron] 1 ea PO DAILY 01/19/17 [History Confirmed 07/26/18] metformin 500 mg tablet 500 mg PO BID 03/19/17 [History Confirmed 07/26/18] Clopidogrel Bisulfate [Plavix] 75 mg PO DAILY 02/08/18 [History Confirmed 07/26/18] Gluc Bautista/Chondro Bautista A/Vit C/Mn [Glucosamine-Chondroitin Cap] 1 ea PO QODAY 02/08/18 [History Confirmed 07/26/18] Aspirin [Aspirin, Baby] 81 mg PO DAILY@0800 tab.chew 02/09/18 [Rx Confirmed 07/26/18] metoprolol tartrate 25 mg tablet 25 mg PO BID #60 tab 03/29/18 [Rx Confirmed 07/26/18] ezetimibe 10 mg tablet 10 mg PO DAILY #90 tab 05/25/18 [Rx Confirmed 07/26/18] insulin lispro protamine-lispro 100 unit/mL (75-25) subcutaneous pen 32 unit SUBCUT BID ml 05/25/18 [History Confirmed 07/26/18] isosorbide mononitrate ER 30 mg tablet,extended release 24 hr 30 mg PO QAM #90 tab 05/25/18 [Rx Confirmed 07/26/18] losartan 25 mg tablet 25 mg PO DAILY #90 tab 05/25/18 [Rx Confirmed 07/26/18] nitroglycerin 0.4 mg sublingual tablet 0.4 mg SUBLINGUAL Q5-15M PRN #90 tab 05/25/18 [Rx Confirmed 07/26/18] turmeric root extract 500 mg capsule 500 mg PO DAILY 05/25/18 [History Confirmed 07/26/18] [facility] Medical History History of non-ST elevation myocardial infarction (NSTEMI) (Acute) Essential (primary) hypertension (Chronic) Atherosclerosis of cahto coronary artery of cahto heart without angina pectoris (Chronic) Hyperlipidemia (Chronic) Diabetes mellitus (Chronic) Thyroid disorder (Chronic) History of left heart catheterization (Chronic) Surgical History S/P coronary artery stent placement (Chronic ~04/05/18) History of coronary artery bypass surgery (Chronic ~01/21/17) Hx of CABG (Chronic ~01/21/17) Family History Sister CAD (coronary artery disease) Diabetes Brother CAD (coronary artery disease) Social History Smoking Status: Former smoker how long ago did patient quit smokin alcohol intake: never substance use type: does not use caffeine: Yes Type: coffee Number of servings: 3 what type of physical activity do you participate in: none seatbelt use: always do you feel safe at home: Yes ROS Const Const: Positive for fatigue; negative for weakness, fever(s) or headache(s) Eyes Eyes: Negative for blind spots, loss of peripheral vision or transient loss of vision ENT ENT: Positive for dizziness; negative for headache(s), tinnitus or Nosebleed/epistaxis Cardio Chest Pain: Yes Palpitations: Yes Edema: None Muscle aches with walking: None Resp Respiratory: Negative for SOB with activity, SOB at rest, SOB orthopnea\SOB lying down or Cough GI GI: Negative nausea, vomiting, heartburn or vomiting blood/hematemesis : Negative for hematuria Musc Musc: Negative for muscle aches/ myalgia Neuro Neuro: Positive for dizziness and lightheadedness; negative for near syncope, syncope, orthostatic symptoms, headache(s) or weakness Tom Hematologic/Lymphatic: Negative for easy bleeding Endo Endo: Positive for fatigue Cardiology Exam Const Appearance: cooperative, healthy appearing, comfortable and no acute distress Nutritional Appearance: well nourished and obese Orientation: alert, awake and oriented x3 Head Head: normal to inspection Ears: hearing grossly normal bilaterally Nose: external nose normal Mouth: oral mucosae normal Eyes General: appearance normal, both eyes and all related structures Pupils: PERRL EOM: EOM intact bilaterally Neck Neck: normal visual inspection and no JVD Carotids: normal carotid upstroke Chest Chest inspection: normal inspection of the chest, symmetric chest movement and normal respiratory effort Auscultation: Bilateral: Clear to Auscultation Cardio Rate: regular rate Rhythm: regular rhythm Heart sounds: S1 normal and S2 normal; negative rub, gallop or murmur GI GI: obese Neuro General: alert, awake, oriented x3 and CN's II-XI intact bilaterally Skin Skin: no rashes or lesions noted Extremities Pulses: Normal: Right Posterior Tibial Pulse, Left Posterior Tibial Pulse, Right Radial Pulse, Left Radial Pulse Lower Extremity Edema: None: Bilateral Psych Psychological: normal affect Assessment & Plan 1. Coronary artery disease involving cahto coronary artery of cahto heart with angina pectoris with documented spasm I25.111 Plan With patient's continued chest discomfort and abnormal stress test he is scheduled to undergo a heart catheterization on August 09, [address] Milton. For now he will continue with current aggressive medical management. 2. Essential hypertension I10 Plan Blood pressure is well controlled on current medications, we do not recommend any changes at this time. 3. Hyperlipidemia, unspecified hyperlipidemia type E78.5 Plan Recent lipid profile demonstrates total cholesterol 147, HDL 36, LDL 86. Patient will continue with current medical management Plan Detail Additional Comments Thank you for allowing us to participate in patient's plan of care, if you have any questions please do not hesitate to call. This note was generated using a voice recognition system and there may be incorrect words, spelling or punctuation errors that were not noted when reviewing the office note prior to saving. Patient is scheduled to undergo a heart catheterization with Dr. Milton on August 09, 2018. He will follow-up after Follow Up 07/26/18 (keep as is) Coding Level of Care Code Off vis,est,level 4 Diagnoses Coronary artery disease involving cahto coronary artery of cahto heart with angina pectoris with documented spasm I25.111 ??Coronary Disease-Associated Artery/Lesion type: cahto artery ??[place] vs. transplanted heart: cahto heart ??Associated angina: with angina and documented spasm Essential hypertension I10 Hyperlipidemia, unspecified hyperlipidemia type E78.5 ??Hyperlipidemia type: unspecified Coding Level of Care Code Off vis,est,level 4 Diagnoses Coronary artery disease involving cahto coronary artery of cahto heart with angina pectoris with documented spasm I25.111 ??Coronary Disease-Associated Artery/Lesion type: cahto artery ??[place] vs. transplanted heart: cahto heart ??Associated angina: with angina and documented spasm Essential hypertension I10 Hyperlipidemia, unspecified hyperlipidemia type E78.5 ??Hyperlipidemia type: unspecified Supplemental Info Supplemental Information Heart catheterization from [place] in March 2018 showed patent THRASHER to LAD, patent SVG to left circumflex, and 100% stenosis of SVG to second right posterior lateral. He underwent balloon angioplasty and stenting to 70% stenosis of proximal ramus intermedius and 95% stenosis of mid left circumflex. Echocardiogram from March 2018 showed normal left ventricular size, mildly increased left ventricular wall thickness, ejection fraction is 50-55%, wall motion is normal, no regional wall motion abnormalities, mitral valve with mild annulus calcification, moderate mitral valve regurgitation, eccentric posterior mitral valve jet, RVSP of 55 mmHg, estimated right atrial pressure of 8 mmHg, Stress test in 06/2018 demonstrated: 1. Rest and stress SPECT Cardiolite nuclear imaging demonstrate myocardial perfusion changes appearing compatible with an area of previous myocardial injury/infarction involving portions of the inferolateral segments with post stress myocardial perfusion changes appearing compatible with mis-infarct related myocardial ischemia involving portions of the mid to distal inferolateral and associated apical segments. 2. The gated Cardiolite study reports an LVEF of 41 %. Labs LDL Cholesterol 86 mg/dL (0-130) 02/09/18 HDL Cholesterol 36 mg/dL (40-) L 02/09/18 Triglycerides 125 mg/dL (-199) 02/09/18 VLDL Cholesterol 25 mg/dL (5-40) 02/09/18 Diagnostics Electrocardiogram 05/25/18 Echocardiogram 02/08/18 Stress Test Nuclear Medicine 07/12/18 Stress Test 07/12/18 Chest X-Ray 02/08/18 07/27/18 1335 <Electronically signed by Elizabeth ROBERTO> Date Elizabeth ROBERTO
[2018-08-08 14:28] VITALS: BMI 32.3
[2018-08-09 08:03] LABS: Anion Gap 5 (5-15); BUN 28 mg/dL (7-18); BUN/Creat Ratio 19.9 RATIO (10-20); Calcium,Total 9.1 mg/dL (8.5-10.1); Chloride 107 mmol/L (98-107); Creatinine, Serum 1.41 mg/dL (0.70-1.30); EST Glomerular Filtration Rate 53 mL/min (>60); Est Glom Filt Rate - Afr Amer 64 mL/min (>60); Estimated Creatinine Clearance 57.45 ml/min; Glucose 183 mg/dL (74-106); Potassium 4.2 mmol/L (3.5-5.1); Sodium Level 138 mmol/L (136-145)
--- NOTE | 2018-08-09 12:43 | CL.D_ITS ---
Patient Name: MICKY ABDI Study Date: 08/09/2018 Performing: Wali Milton MD Ht: 72.83 inches 185 cm : 1950 Wt: 244.71 lbs 111 kg Age: 67 Gender: male BSA: 2.34 PROCEDURE(S) PERFORMED DG90-LVQ/LHC/COR/LV/CABG DC11-AO ROOT ANGIO WITH HEART CATH CLINICAL PROFILE AND INDICATIONS Indications: Suspected CAD Heart Failure: None Stress/Imaging Date: 07/12/2018Stress Test with SPECT MPI: Positive Angina Classification Anginal Classification w/in 2 Weeks: CCS III CONCLUSIONS Right heart pressures - mildly to moderately elevated The patient has pulmonary hypertension which is mild to moderate Intracardiac shunting: None Elevated Left Ventricular End Diastolic Pressure Segmented LV systolic dysfunction- Mild LVEF: by LV gram 40 % [place] Multivessel CAD THRASHER to LAD: patent SVG to LCX/OM: occluded SVG to RCA: occluded Collateral flow: left to right RECOMMENDATIONS Risk factor modification Medical therapy DESCRIPTION OF PROCEDURE The patient arrived to the procedure lab. The risks and benefits of the procedure as well as a full d escription of our services here and current unavailability of surgical backup were fully explained to the patient and/or their significant other prior to the catheterization. The Timeout was completed, verifying the correct patient and procedure. The patient's procedural site was prepped and draped in the usual fashion. Local anesthetic was given subcutaneously to right groin region with Lidocaine 2%. Using a modified Seldinger technique, arterial access was obtained via the right femoral artery, a 4 Fr sheath was inserted Venous access was obtained via the right femoral vein, a 7Fr sheath was insert ed. A 7Fr thermal dilution catheter was inserted and right heart pressures were recorded, it was then advanced to PA position for cardiac outputs. Thermal dilution cardiac outputs were then recorded. O2 saturations were then obtained. Simultaneous pressures were then recorded. Left Ventriculography was performed in [place] projection using a 4 Fr. Pigtail catheter. LV to AO pullback pr essures were then recorded. Left internal mammary artery graft to the LAD selective angiography was p erformed in multiple views using a 4 Fr. IM catheter. Left Coronary Artery selective angiography was performed in multiple views using a 4 Fr. JL5 catheter. Right Coronary Artery selective angiography w as then performed in multiple views using a 4 Fr. 3DRC catheter. Saphenous Vein graft to the LPL enma ry (occluded graft) selective angiography was performed in single view using a 4 Fr. 3DRC catheter. A scending (root) aorta selective angiography was then performed in single view. Ascending (root) aorta selective angiography was then performed in single view. Saphenous Vein graft to the unknown artery (occluded graft) selective angiography was performed in single view using a 4 Fr. AR MOD 2 catheter.T he arterial sheath was pulled and manual compression applied until hemostasis is achieved.. The venous sheath was then pulled and manual compression applied until hemostasis achieved CORONARY ANGIOGRAPHY DOMINANCE: Right Dominant LEFT HEART ASSESSMENT Left Ventricular Ejection Fraction: by LV Gram 40 % Inferior Basal Akinesis. Inferior Mid Hypokinesis. Inferior Apical Hypokinesis Elevated Left Ventricular End Diastolic Pressure LVEDP: 19 mmHg RIGHT HEART ASSESSMENT Thermal CO: 4.05 Thermal CI: 1.73 Bhavana CO: 4.99 Bhavana CI: 2.13 PW: 03/01 9 PA: 35/7 17 RV: 39/0 5 RA: 08/24 4 PVR: 158 SVR: 1916 Right Heart pressures - elevated Pulmonary Hypertension Mild - Moderate Intracardiac shunting: None LEFT MAIN: Mild luminal irregularities, distal: 50 % Stenosis LEFT ANTERIOR DESCENDING ARTERY: PROX LAD: Severe calcification: Eccentric, Eccentric: 75 % Stenosis MID LAD: is occluded, - Distal: filling from the THRASHER graft DISTAL LAD: small caliber vessel: 75 % Stenosis CIRCUMFLEX ARTERY: Mild luminal irregularities PROX CIRC: Previously placed stent is patent OM 1: Proximal - Previously placed stent is patent, Distal - small caliber vessel: 25 - 50 % Stenosis RAMUS: Mild luminal irregularities, Previously placed stent is patent RIGHT CORONARY ARTERY: diffuse: eccentric: 25 % Stenosis PROX RCA: Mild calcification MID RCA: 25 - 50 % Stenosis RIGHT AV SEGMENT: is occluded GRAFTS: THRASHER graft to the Mid LAD is patent Saphenous Vein graft to the 1st OM is totally occluded Saphenous Vein graft to the RCA is totally occluded COLLATERAL FLOW: Collateral flow from Left to Right VALVE FINDINGS: Normal Aortic Valve function Normal Mitral Valve function AORTIC ROOT: Angiographically normal COMPLICATIONS No Complications PROCEDURE MEDICATIONS Oxygen: 0 L/min via nasal cannula SUMMARY OF HEMODYNAMIC DATA Time AIR REST ECG 08:30:43 RA 6/5 (4) SV 11:25:34 RV 39/0, 5 11:25:49 PW 03/01 (9) PV 11:26:25 PA 35/7 (17) PA 11:26:45 LV 160/-4, 17 11:31:50 PW 8/8 (6) 11:31:50 LV 161/-4, 19 11:31:56 PW 10/8 (6) 11:31:56 LV 152/4, 19 11:33:08 PW 11/10 (7) 11:33:08 PA 44/13 (24) 11:33:31 RV 43/0, 6 11:34:12 RA 7/5 (4) 11:34:21 LV 167/5, 24 11:34:40 LVp 167/2, 22 11:34:44 AOp 170/66 (101) 11:34:49 AO 140/70 (101) SA 11:38:02 RM AIR REST 12:33:59 Type SV CO (l/m) CI (l/m/ HR Time AIR REST Thermal 94.20 4.05 1.73 43 08:30:43 Bhavana 116.00 4.99 2.13 43 08:30:43 Label % O2 Pres/Loc Time AIR REST AO 96 PV 12:14:53 SVC 49 12:14:56 RA 66 PA 12:15:00 Signed By Wali Milton MD On 08/09/2018 12:43:01 PM Wali Milton MD
[2018-08-09 13:26] LABS: Blood Gas Specimen Type VEN; VBG BASE EXCESS -1 mmol/L (-1.0-3.5); VBG Bicarbonate 25 mmol/L (22-26); VBG Oxygen Content 27 mmol/L (23-33); VBG PO2 29 mmHg (25-40); VBG SO2 49 % (50-70); VBG pCO2 48.7 mmHg (41-51); VBG pH 7.32 (7.32-7.42)
[2018-08-09 13:26] LABS: Blood Gas Specimen Type VEN; VBG BASE EXCESS -2 mmol/L (-1.0-3.5); VBG Bicarbonate 24 mmol/L (22-26); VBG Oxygen Content 25 mmol/L (23-33); VBG PO2 29 mmHg (25-40); VBG SO2 51 % (50-70); VBG pCO2 44.7 mmHg (41-51); VBG pH 7.34 (7.32-7.42)
[2018-08-09 13:26] LABS: Blood Gas Specimen Type VEN; VBG BASE EXCESS -2 mmol/L (-1.0-3.5); VBG Bicarbonate 24 mmol/L (22-26); VBG Oxygen Content 25 mmol/L (23-33); VBG PO2 36 mmHg (25-40); VBG SO2 66 % (50-70); VBG pCO2 43.4 mmHg (41-51); VBG pH 7.35 (7.32-7.42)
[2018-08-09 13:26] LABS: Base Excess -4 mmol/L (-2 to +2); Bicarbonate 21.2 mmol/L (22-26); Blood Gas Specimen Type ART; PO2 85 mmHG (75-100); SO2 96 % (95-99); Total Carbon Dioxide 22 mmol/L; pCO2 36.2 mmHg (35-45); pH 7.38 (7.35-7.45)
== END 2018-08-09 16:47 | disposition home or self-care (01) ==
PROVIDERS: Family Provider Family Medicine; PCP Family Medicine; Referring Provider Internal Medicine Cardiovascular Disease; Visit Provider Internal Medicine Cardiovascular Disease
DX: I25.111 Atherosclerotic heart disease of native coronary artery with angina pectoris with documented spasm (principal); I25.810 Atherosclerosis of coronary artery bypass graft(s) without angina pectoris; R94.39 Abnormal result of other cardiovascular function study; I27.20 Pulmonary hypertension, unspecified; E11.9 Type 2 diabetes mellitus without complications; E78.5 Hyperlipidemia, unspecified; G47.33 Obstructive sleep apnea (adult) (pediatric); I10 Essential (primary) hypertension; Z79.4 Long term (current) use of insulin; I25.2 Old myocardial infarction; Z79.82 Long term (current) use of aspirin; Z86.73 Personal history of transient ischemic attack (TIA), and cerebral infarction without residual deficits; Z87.891 Personal history of nicotine dependence; R42 Dizziness and giddiness
CPT/HCPCS: 36415; 80048; 82803; 93461; 93567; J7040; Q9967; C1751; C1769; C1894

== ENCOUNTER → 2018-08-11 08:05 | Outpatient (CLI) | payer OTHER, SELFPAY ==
[2018-08-11 08:05] VITALS: BMI 31.6
[2018-08-11 10:38] LABS: Anion Gap 7 (5-15); BUN 28 mg/dL (7-18); BUN/Creat Ratio 19.6 RATIO (10-20); Calcium,Total 8.8 mg/dL (8.5-10.1); Chloride 111 mmol/L (98-107); Creatinine, Serum 1.43 mg/dL (0.70-1.30); EST Glomerular Filtration Rate 52 mL/min (>60); Est Glom Filt Rate - Afr Amer 63 mL/min (>60); Glucose 185 mg/dL (74-106); Potassium 4.3 mmol/L (3.5-5.1); Sodium Level 135 mmol/L (136-145)
== END ==
PROVIDERS: Family Provider Family Medicine; PCP Family Medicine; Referring Provider Internal Medicine Cardiovascular Disease; Visit Provider Internal Medicine Cardiovascular Disease
DX: I25.10 Atherosclerotic heart disease of native coronary artery without angina pectoris (principal); Z95.1 Presence of aortocoronary bypass graft; I25.2 Old myocardial infarction; I10 Essential (primary) hypertension; Z95.5 Presence of coronary angioplasty implant and graft
CPT/HCPCS: 36415; 80048

== ENCOUNTER 2022-06-16 09:22 | Inpatient (IN) | payer OTHER, SELFPAY ==
[2022-06-16] VITALS (11 sets, daily range): BP systolic 120–173; BP diastolic 55–87; PULSE 48–82; RESP 13–18; TEMP 36.1–36.6; O2SAT 92–100; BMI 32.2; BMI 32.0
--- NOTE | 2022-06-16 09:51 | CT_ITS ---
STUDY: CTA OF THE ABDOMINAL AORTA AND BILATERAL LOWER EXTREMITIES REASON FOR EXAM: Male, 71 years old. Left cool leg RADIATION DOSAGE (If Supplied By Facility): CTDIvol = ( 11.37 ) mGy, DLP = ( 1628.94 ) mGycm TECHNIQUE: Axial CT angiography multi-detector data acquisition was obtained from the dome of the liver to the level of the ankles following intravenous administration of IV 100mL Isovue-370. Axial images and MIP images were reconstructed from the axial data set. Post-processing of the angiographic images was performed, with multiplanar reformation and 3D reconstruction. Individualized dose optimization techniques were used for this CT. TECHNICAL QUALITY: Good COMPARISON: None. Descriptors of Narrowing: None (0%) Mild (< 50%) Moderate (50-70%) Severe (70-90%) Subtotal/Total Occlusion (90-100%) Non-Evaluable (technically non-diagnostic FINDINGS: Fatty infiltration of the liver. 1 cm adenoma in the crux of the right adrenal gland. Abdominal aorta: Atherosclerotic plaque formation. Minimal degree of mural thrombus in the distal portion of the aorta. Celiac and superior mesenteric arteries: Calcific plaque at the origin of the celiac artery causing mild stenosis as well as at the origin of the superior mesenteric artery. Inferior mesenteric artery: No demonstrated narrowing. Right renal artery(arteries): Calcific plaques at the origin of the right renal artery. Left renal artery(arteries): Calcific plaques at the origin of the left renal artery. Right common iliac artery: Nonstenotic calcific plaques. Right external iliac artery: Nonstenotic calcific plaques. Right internal iliac artery: No demonstrated narrowing. Left common iliac artery: Nonstenotic calcific plaques. Left external iliac artery: Nonstenotic calcific plaques. Left internal iliac artery: No demonstrated narrowing. RIGHT LOWER EXTREMITY Right common femoral artery: No demonstrated narrowing. Right profundus femoris: No demonstrated narrowing. Right superficial femoral: Scattered nonstenotic calcific plaques. Right popliteal artery: No demonstrated narrowing. Right tibioperoneal trunk: No demonstrated narrowing. Right anterior tibial artery: No demonstrated narrowing. Right posterior tibial artery: No demonstrated narrowing. Right peroneal artery: No demonstrated narrowing. LEFT LOWER EXTREMITY Left common femoral artery: Localized occlusive segment in the distal portion of the left common femoral artery Left profundus femoris: No demonstrated narrowing. Left superficial femoral: Reconstitution of the proximal superficial femoral artery. Multiple mildly stenotic plaques throughout the superficial femoral artery. Left popliteal artery: No demonstrated narrowing. Left tibioperoneal trunk: No demonstrated narrowing. Left anterior tibial artery: Decreased flow in the anterior cerebral artery. Left posterior tibial artery: Decreased runoff in the positive artery. Left peroneal artery: No demonstrated narrowing. CT/CTA Abd w/Runoff W/WO Contrast IMPRESSION: Focal stenotic region in the distal portion of the right common femoral artery and proximal superficial femoral artery on the left side. Poor runoff in the left leg. Electronically Signed: Jesus Alberto Blair MD at 12:16 EDT ,
--- NOTE | 2022-06-16 09:54 | ED.VIS.LOWEX ---
HPI History of Present Illness Chief Complaint: Lower Extremity Injury Narrative Narrative: 71-year-old male past medical history of CVA, hypertension, diabetes, hyperlipidemia presents from the now clinic with cool leg. He noticed that his left leg was cooler to the touch and discolored yesterday evening. He denies any chest pain or shortness of breath. No fevers or chills. He went to the outside facility where they suggested he present to the emergency department for further work-up of his cool leg. He states that it was more discolored mainly by his left knee and the lower portion of his leg, but that has improved. He may have some pain with walking. He denies any recent trauma, but states that his left lower extremity feels tight. [facility] Medical History (Updated 06/16/22 @ 13:13 by Alvin Bowers MD) Atherosclerosis of [place] coronary artery of [place] heart without angina pectoris Diabetes mellitus Essential (primary) hypertension History of left heart catheterization History of non-ST elevation myocardial infarction (NSTEMI) Hyperlipidemia Thyroid disorder Home Medications metformin 500 mg tablet 1,000 mg PO QHS DM 03/19/17 [History Last Taken 06/15/22] metoprolol tartrate 25 mg tablet 25 mg PO BID HEART/BLOOD PRESSURE #60 tabs 03/29/18 [Rx Last Taken 06/16/22] losartan 25 mg tablet 25 mg PO DAILY BP #90 tabs 05/25/18 [Rx Last Taken 06/16/22] nitroglycerin 0.4 mg sublingual tablet 0.4 mg sublingual Q5-15M PRN chest pain #90 tabs 05/25/18 [Rx Last Taken Unknown] aspirin 81 mg chewable tablet 81 mg PO DAILY@0800 HEALTH MAINTENANCE 06/16/22 [History Last Taken 06/16/22] cholecalciferol (vitamin D3) 25 mcg (1,000 unit) tablet 25 mcg PO DAILY SUPPLEMENT 06/16/22 [History Last Taken 06/16/22] ezetimibe 10 mg tablet (Zetia) 10 mg PO DAILY DM 06/16/22 [History Last Taken 06/16/22] insulin human U-100 NPH-regulr 70-30 mix 100 unit/mL subcutaneous susp (Novolin 70/30 U-100 Insulin) 32 unit subcut DAILY DM 06/16/22 [History Last Taken 06/15/22] insulin human U-100 NPH-regulr 70-30 mix 100 unit/mL subcutaneous susp (Novolin 70/30 U-100 Insulin) 40 unit subcut DAILY DM 06/16/22 [History Last Taken 06/16/22] isosorbide mononitrate 60 mg tablet,extended release 24 hr 60 mg PO DAILY HEART 06/16/22 [History Last Taken 06/16/22] levothyroxine 175 mcg tablet 175 mcg PO DAILY THYROID 06/16/22 [History Last Taken 06/16/22] lutein 20 mg tablet 20 mg PO DAILY SUPPLEMENT 06/16/22 [History Last Taken 06/16/22] pediatric multivit no.17-ferrous fumarate 15 mg iron chewable tablet 1 tab PO DAILY SUPPLEMENT 06/16/22 [History Last Taken 06/16/22] Allergy/AdvReac Type Severity Reaction Status Date / Time atorvastatin [From Lipitor] AdvReac Mild mylagia Verified 06/16/22 09:25 lanolin AdvReac Unknown Unknown Verified 06/16/22 09:25 Family History Sister CAD (coronary artery disease) Diabetes Brother CAD (coronary artery disease) Surgical History History of coronary artery bypass surgery (~01/21/17) Hx of CABG (~01/21/17) S/P coronary artery stent placement (~04/05/18) Social History Smoking Status: Former smoker how long ago did patient quit smokin alcohol intake: never substance use type: does not use caffeine: Yes Type: coffee Number of servings: 3 what type of physical activity do you participate in: none seatbelt use: always do you feel safe at home: Yes ROS ROS ED ROS Narrative Constitutional: No fever, no chills. HEENT: No sore throat. No neck pain. No loss of vision. No rhinorrhea. Cardiovascular: No chest pain. No palpitations. No pedal edema. Respiratory: No cough, no shortness of breath. Abdominal: No abdominal pain. No nausea. No vomiting. Genitourinary: No dysuria. No hematuria. Musculoskeletal: No myalgias. Left lower extremity pain from hip downward. Noticed discoloration medial left knee and lower extremity which has improved. Coolness of left lower leg, described as ice cold. Neurologic: No headaches. No dizziness. No lightheadedness. Skin: No rash. No change in color. Psychiatric: No depression. No anxiety. EXAM Physical Exam Narrative Exam Narrative: Afebrile. Vital signs noted. HEENT: Normocephalic. Atraumatic. PERRL, EOMI. Neck soft and supple. No point tenderness or step off. Cardiovascular: Regular rate and rhythm. No murmurs, rubs, or gallops appreciated. Respiratory: No tachypnea. Lungs clear to auscultation bilaterally. Gastrointestinal: Abdomen soft, nontender, with normoactive bowel sounds. No rebound or guarding. Neurological: Awake. Alert. Nonfocal, nonlateralizing. Skin: No rash. Normal color. Mild redness distal medial left knee. No pallor. Cooler to touch when compared to right. Difficult to palpate dorsalis pedis pulse left. Musculoskeletal: No pedal edema. Full range of motion extremities. Const Vital Signs: 06/16/22 09:23 06/16/22 12:24 06/16/22 13:45 Temperature 97.9 F Temperature Source Temporal Pulse Rate 57 L 82 49 L Respiratory Rate 18 18 13 Blood Pressure 173/71 H 120/68 139/59 H Blood Pressure Mean 105 85 85 Blood Pressure Source Blood Pressure Position Blood Pressure Location Pulse Ox 100 98 97 Oxygen Delivery Method Room Air Room Air 06/16/22 13:46 06/16/22 13:49 Temperature 97 F L Temperature Source Temporal Pulse Rate 50 L 56 L Respiratory Rate 15 18 Blood Pressure 139/59 H 139/59 H Blood Pressure Mean 85 85 Blood Pressure Source Monitor Blood Pressure Position Semi-Fowlers Blood Pressure Location Right Arm Pulse Ox 96 95 Oxygen Delivery Method Room Air Room Air MDM MDM MDM Narrative Medical decision making narrative: Concern is for intermittent claudication of the left lower extremity versus atherosclerosis versus thrombolic event. In review of his chart, he does have atherosclerosis of coronary artery, so I do feel that he most likely has atherosclerosis of his legs/peripheral vascular disease. RN will obtain Doppler of the dorsalis pedis pulse. I will obtain a basic laboratories including CBC, BMP/CMP and coagulation studies in the event that he may need to be started on heparin or an oral anticoagulant. CTA of the abdomen with runoffs will also be obtained to look for arterial occlusion. I reviewed his laboratory work, he has a normal white count of 10.6, hemoglobin normal at 16.5, hematocrit normal at 50.8, normal platelet count of 187. Coagulation studies show an INR of 1.0 with an APTT normal at 27. Electrolyte panel shows creatinine slightly elevated at 1.36 with a BUN of 27. He was bolused normal saline 1 L intravenously. I reviewed his CT report, which is concerning for focal stenotic region in the distal portion of the common femoral artery and proximal superficial femoral artery on the left side. Although the report says right common femoral artery, I do feel that this is a typographical error. Given his concern for acute occlusion, I discussed the patient with Dr. Sergei Joshua with vascular surgery. He would like the patient started on heparin. Patient was told of the risk of GI hemorrhage, intracranial hemorrhage, and bleeding from other sites but I do feel that the benefit outweighs the risk of that happening. RN was only faintly able to Doppler a pulse on the left side. Given the acute occlusion, he will be admitted, and possibly taken to the OR from the ED. Disposition is admit in stable condition. History & Record Review Discussion w/independent historian: Patient Additional record(s) reviewed:: Prior ED visit Lab Data Attestation: I reviewed the patient's lab results. Labs: Laboratory Results - last 24 hr 06/16/22 06/16/22 06/16/22 10:03 10:03 10:03 WBC 10.6 RBC 5.77 Hgb 16.5 Hct 50.8 MCV 88.0 MCH 28.6 MCHC 32.5 RDW Std Deviation 50.0 H RDW Coeff of [place] 15.6 H Plt Count 187 MPV 11.4 Immature Gran % (Auto) 1.400 H Neut % (Auto) 73.5 H Lymph % (Auto) 16.9 L [place] % (Auto) 6.5 Eos % (Auto) 1.2 Baso % (Auto) 0.5 Absolute Neuts (auto) 7.8 H Absolute Lymphs (auto) 1.79 Nucleated RBC % 0 PT 13.2 INR 1.0 APTT 27.0 Sodium 139 Potassium 3.8 Chloride 107 Carbon Dioxide 27.0 Anion Gap 5 BUN 27 H Creatinine 1.36 H Estim Creat Clear Calc 56.30 Est GFR (MDRD) Af Amer 66 Est GFR (MDRD) Non-Af 55 L BUN/Creatinine Ratio 19.9 Glucose 135 H Calcium 8.7 Total Bilirubin 0.70 AST 21 ALT 33 Alkaline Phosphatase 51 Total Protein 7.5 Albumin 3.0 L Globulin 4.5 H Albumin/Globulin Ratio 0.7 L Radiography Diagnostic Testing: Clinical Impression(s) from Imaging Studies Abdomen/Pelvis CTA 06/16/22 09:51 IMPRESSION: Focal stenotic region in the distal portion of the right common femoral artery and proximal superficial femoral artery on the left side. Poor runoff in the left leg. Electronically Signed: Jesus Alberto Blair MD at 12:16 EDT , Discharge Plan Dx/Rx/DC Orders Clinical Impression: Left leg pain, Hyperlipidemia, Essential (primary) hypertension, Thrombosis of left common femoral artery Disposition Disposition: Acute Care Hospital [facility] Discharge Date/Time: 06/16/22 14:15
[2022-06-16 10:18] LABS: Absolute Lymphocyte Count 1.79 X10^3/uL (0.83-4.51); Absolute Neutrophil Count 7.8 X10^3/uL (2.0-7.7); Basophil# 0.05 X10^3/uL; Basophil% 0.5 % (0-1); Eosinophil# 0.13 X10^3/uL; Eosinophils% 1.2 % (0-5); Hematocrit 50.8 % (40-54); Hemoglobin 16.5 g/dL (13.0-16.5); Lymphocyte # 1.79 X10^3/ul (0.83-4.51); Lymphocyte % 16.9 % (19-41); Mean Corp Hgb Conc 32.5 g/dL (32-36); Mean Corpuscular Hgb 28.6 pg (27.0-32.0); Mean Platelet Vol. 11.4 fl (6.2-12.0); Monocyte# 0.69 X10^3/uL; Monocyte% 6.5 % (0-10); NRBC Flagged by Analyzer 0 % (0-5); Neutrophil % 73.5 % (47-70); Platelet Count 187 K/mm3 (150-450); RBC Distribution Width CV 15.6 % (11.6-14.6); Red Blood Count 5.77 M/mm3 (4.6-6.2); White Blood Count 10.6 K/mm3 (4.4-11.0)
[2022-06-16 10:37] LABS: Prothrombin Time (Protime)PT. 13.2 SECONDS (11.7-14.9)
[2022-06-16 10:38] LABS: ALB/GLOB Ratio 0.7 RATIO (0.9-2.4); AST(SGOT) 21 U/L (15-37); Alanine Aminotransfer ALT/SGPT 33 U/L (16-61); Alkaline Phosphatase 51 U/L (45-117); Anion Gap 5 (5-15); BUN 27 mg/dL (7-18); BUN/Creat Ratio 19.9 RATIO (10-20); Calcium,Total 8.7 mg/dL (8.5-10.1); Chloride 107 mmol/L (98-107); Creatinine, Serum 1.36 mg/dL (0.70-1.30); EST Glomerular Filtration Rate 55 mL/min (>60); Est Glom Filt Rate - Afr Amer 66 mL/min (>60); Globulin 4.5 g/dL (2.2-4.2); Glucose 135 mg/dL (74-106); Potassium 3.8 mmol/L (3.5-5.1); Protein, Total 7.5 g/dL (6.4-8.2); Sodium Level 139 mmol/L (136-145)
--- NOTE | 2022-06-16 12:36 | ED.RN ---
BILATERAL PEDAL PULSES COMPLETED. PEDAL PULSE TO RT DORSAL. VERY FAINT PULSE TO LEFT DORSAL
[2022-06-16] MEDS: HEPARIN/D5w 25,000 UNITS 25,000 UNITS/250 ML IV.SOLN. 15 UNITS CONT INF (13:42)
[2022-06-16] MEDS: Heparin Injection (Vial) 5,000 UNIT/ML VIAL 8000 UNIT IV (13:42)
--- NOTE | 2022-06-16 13:59 | HP.PCM_ITS ---
HPI - General General Date of Admission: 06/16/22 HPI Narrative MICKY ABDI, is a 71 M who presents with acute onset lft foot pain/discoloration starting yesterday morning. Has failed to improve so presented to ED. No prior similar episodes, no left leg symptoms prior to acute pain. Was on ASA, no other anticoagulation. Hx CAD with prior CABG and coronary stents, last in 2019. Denies CP/SOB with exertion. Has diminished sensation left foot, motor intact. [facility] Medical History (Updated 06/16/22 @ 13:13 by Alvin Bowers MD) Atherosclerosis of [place] coronary artery of [place] heart without angina pecto ris Diabetes mellitus Essential (primary) hypertension History of left heart catheterization History of non-ST elevation myocardial infarction (NSTEMI) Hyperlipidemia Thyroid disorder Home Medications levothyroxine 125 mcg tablet 125 mcg PO DAILY thyroid 01/19/17 [History Last Taken 08/09/18] multivitamin with iron 1 ea PO DAILY supplement 01/19/17 [History Last Taken 08/06/18] metformin 500 mg tablet 1,000 mg PO BID DM 03/19/17 [History Last Taken 08/08/18] clopidogrel 75 mg tablet 75 mg PO DAILY ANTIPLATELET 02/08/18 [History Last Taken 08/09/18] rkrpovzcjzm-xvbhhkxzx-wjj C-Mn 500 mg-400 mg capsule 2 ea PO QODAY 02/08/18 [History Last Taken 08/06/18] aspirin 81 mg chewable tablet 81 mg PO DAILY@0800 02/09/18 [Rx Last Taken 08/09/18] metoprolol tartrate 25 mg tablet 25 mg PO BID HEART/BLOOD PRESSURE #60 tabs 03/29/18 [Rx Last Taken 08/09/18] ezetimibe 10 mg tablet (Zetia) 10 mg PO DAILY #90 tabs 05/25/18 [Rx Last Taken 08/06/18] insulin lispro protamine-lispro 100 unit/mL (75-25) subcutaneous pen 32 unit subcut BID DM 05/25/18 [History Last Taken 07/24/18] losartan 25 mg tablet 25 mg PO DAILY BP #90 tabs 05/25/18 [Rx Last Taken 08/09/18] nitroglycerin 0.4 mg sublingual tablet 0.4 mg sublingual Q5-15M PRN chest pain #90 tabs 05/25/18 [Rx Last Taken Unknown] turmeric root extract 500 mg capsule 1,000 mg PO BID 05/25/18 [History Last Taken 08/06/18] isosorbide mononitrate 60 mg tablet,extended release 24 hr 60 mg PO DAILY #30 tabs 08/09/18 [Rx Last Taken Unknown] Allergy/AdvReac Type Severity Reaction Status Date / Time atorvastatin [From Lipitor] AdvReac Mild mylagia Verified 06/16/22 09:25 lanolin AdvReac Unknown Unknown Verified 06/16/22 09:25 Family History Sister CAD (coronary artery disease) Diabetes Brother CAD (coronary artery disease) Surgical History History of coronary artery bypass surgery (~01/21/17) Hx of CABG (~01/21/17) S/P coronary artery stent placement (~04/05/18) Social History Smoking Status: Former smoker how long ago did patient quit smokin alcohol intake: never substance use type: does not use caffeine: Yes Type: coffee Number of servings: 3 what type of physical activity do you participate in: none seatbelt use: always do you feel safe at home: Yes ROS Constitutional Constitutional: Denies chills, fever(s), frequent falls, lethargy or weakness Eyes Eyes: Denies blind spots, change in vision or loss of vision ENT HEENT: Denies bleeding gums, hoarseness or sore throat Cardiovascular Cardiovascular: Denies abdominal pain, bluish discoloration of hand/feet, chest pain with activity, claudication, cold extremities, cyanosis, dyspnea on exerti on, erythema on extremities, irregular heart rhythm, leg edema, leg ulcers, numbness in extremities or weakness in extremities Respiratory/Chest Respiratory/Chest: Denies cough, excessive phlegm production, shortness of breath at rest, shortness of breath with exertion or wheezing Gastrointestinal Gastrointestinal: Denies anorexia, change in stool character, constipation, diarrhea, melena or rectal bleeding Genitourinary Genitourinary: Denies dysuria or hematuria Musculoskeletal Musculoskeletal: Denies abnormal gait Integumentary Integumentary: Reports other Details: ; Denies erythema, non-healing lesions or wounds Neurologic Neurologic: Reports paresthesias LLE; Denies abnormal speech, focal weakness, headache(s), loss of vision, numbness or sensory deficit Hematologic/Lymphatic Hematologic/Lymphatic: Denies easy bleeding, easy bruising or lymphadenopathy Vital Signs Vital Signs Vital Signs: 06/16/22 09:23 06/16/22 12:24 06/16/22 13:45 Temperature 97.9 F Temperature Source Temporal Pulse Rate 57 L 82 49 L Respiratory Rate 18 18 13 Blood Pressure 173/71 H 120/68 139/59 H Blood Pressure Mean 105 85 85 Blood Pressure Source Blood Pressure Position Blood Pressure Location Pulse Ox 100 98 97 Oxygen Delivery Method Room Air Room Air 06/16/22 13:46 06/16/22 13:49 Temperature 97 F L Temperature Source Temporal Pulse Rate 50 L 56 L Respiratory Rate 15 18 Blood Pressure 139/59 H 139/59 H Blood Pressure Mean 85 85 Blood Pressure Source Monitor Blood Pressure Position Semi-Fowlers Blood Pressure Location Right Arm Pulse Ox 96 95 Oxygen Delivery Method Room Air Room Air Weight Weight: 244 lb 4.355 oz Body Mass Index (BMI) 32.2 Physical Exam Const alert, oriented x3, no apparent distress and healthy appearing General Appearance: cooperative; Negative for combative or lethargic Orientation / Consciousness: awake Exam Limitations: no limitations HEENT Head and Scalp: normocephalic and atraumatic Eyes EOMs intact bilaterally General Eye: normal appearance of both eyes Neck full ROM General: trachea midline Resp normal respiratory effort and no use of accessory muscles Effort and Inspection: Negative for labored, stridor or audible wheezes Cardio regular rate and regular rhythm Peripheral Pulses: brachial pulses present and radial pulses present; Negative for femoral pulses present, popliteal pulses present, posterior tibial pulses present or dorsalis pedis pulses present GI non-tender and non-distended Back/Spine Cervical Spine: cervical ROM normal Extremity full ROM and normal capillary refill Extremity Narrative: left foot cyanosis Skin no rashes or lesions noted and no wounds Neuro oriented x3, CN's II-XII intact bilaterally and no focal motor deficits Neuro Narrative: diminished sensation left foot Psych thought process normal, cooperative, affect normal, speech normal and activity/motor behavior normal Results Lab / Micro Data Result Diagrams: 06/16/22 10:03 06/16/22 10:03 Labs: Laboratory Results - last 24 hr 06/16/22 10:03: WBC 10.6, RBC 5.77, Hgb 16.5, Hct 50.8, MCV 88.0, MCH 28.6, MCHC 32.5, RDW Std Deviation 50.0 H, RDW Coeff of [place] 15.6 H, Plt Count 187, MPV 11.4, Immature Gran % (Auto) 1.400 H, Neut % (Auto) 73.5 H, Lymph % (Auto) 16.9 L, [place] % (Auto) 6.5, Eos % (Auto) 1.2, Baso % (Auto) 0.5, Absolute Neuts (auto) 7.8 H, Absolute Lymphs (auto) 1.79, Nucleated RBC % 0 06/16/22 10:03: PT 13.2, INR 1.0, APTT 27.0 06/16/22 10:03: Sodium 139, Potassium 3.8, Chloride 107, Carbon Dioxide 27.0, Anion Gap 5, BUN 27 H, Creatinine 1.36 H, Estim Creat Clear Calc 56.30, Est GFR (MDRD) Af Amer 66, Est GFR (MDRD) Non-Af 55 L, BUN/Creatinine Ratio 19.9, Glucose 135 H, Calcium 8.7, Total Bilirubin 0.70, AST 21, ALT 33, Alkaline Phosphatase 51, Total Protein 7.5, Albumin 3.0 L, Globulin 4.5 H, Albumin/Globulin Ratio 0.7 L Radiology Impression Abdomen/Pelvis CTA 06/16/22 09:51 IMPRESSION: Focal stenotic region in the distal portion of the right common femoral artery and proximal superficial femoral artery on the left side. Poor runoff in the left leg. Electronically Signed: Jesus Alberto Blair MD at 12:16 EDT , Assessment & Plan Assessment/Plan (1) Thrombosis of left common femoral artery: PLAN: -CTA images reviewed, left common femoral occlusion with SFA/profunda reconstitution -either embolic or in-situ plaque thrombosis -plan left femoral thrombectomy, fasciotomy -heparin drip -echo post op Charges/Coding Visit Charges Inpatient E&M: 76152 Init Hosp L3
--- NOTE | 2022-06-16 14:00 | EKG12_ITS ---
Test Reason : POST OP Blood Pressure : / mmHG Vent. Rate : 050 BPM Atrial Rate : 050 BPM P-R Int : 218 ms QRS Dur : 152 ms QT Int : 532 ms P-R-T Axes : 011 -45 -56 degrees QTc Int : 485 ms Sinus bradycardia with 1st degree A-V block Right bundle branch block Left anterior fascicular block Bifascicular block Lateral infarct , age undetermined Abnormal ECG Confirmed by FABIOLA WILLETT, EDWIN ([id number]), business editor CHANNING LLOYD ([id number]) on 06/18/2022 9:26:51 AM Referred By: DR DUKES Confirmed By:EDWIN HICKS MD
--- NOTE | 2022-06-16 17:35 | PLAQ_PTH ---
PATIENT: MICKY ABDI LOC: [facility] U#:[id number] AGE/SX: 71/M ROOM: [facility] RE06/16/[address]: Dr. Sergei Joshua MD : 1950 BED: 1 DIS: 06/19/2022 SPEC #: [id number] RECD: 06/17/22 09:48 STATUS: PRUDENCE RECliff #: [id number] GINO: 06/16/22 17:[address]: Sergei Joshua DEPT: SURGICAL PATHOLOGY RECD BY: Jimenez Mahan ENTERED: 06/17/22 11:37 SP TYPE: PLAQUE OTHR DR: Dr. Ellis Fox MD Tissues: A - BLOOD CLOT, NOS PLAQUE Procedures: Decalcification bone/plaque Surgery Specimen Level III HEADER OPERATION: Femoral endarterectomy, thrombectomy, fasciotomy PRE-OP DIAGNOSIS: Thrombosis of left common femoral artery TISSUE SUBMITTED: A ? Left femoral clot, B ? Left femoral plaque (gross only) MICROSCOPIC DIAGNOSIS A. Left femoral clot, thrombectomy: Fragments of blood clot (consistent with thrombus). B. Left femoral plaque, endarterectomy: Atherosclerotic tissue with focal calcification (plaque). SJ:nuvia 06/22/2022 GROSS DESCRIPTION A - Received in fixative is one container labeled with the patient's name and designated left femoral clot. The specimen consists of two irregular fragments of dark elongated blood clots ranging in size from 1.0 to 4.0 cm. The specimen is sectioned and totally submitted in two cassettes. B - Received in fixative is one container labeled with the patient's name and designated left femoral plaque. The specimen consists of an elongated fragment of graf-yellow plaque-like material measuring 4.3 cm in length and 1.0 cm in diameter. The specimen cuts with a gritty sensation. The specimen is sectioned and totally submitted in one cassette after decalcification. / AM:nuvia 06/17/2022 TC:5 CPT: 98353 x2, [id number]
[2022-06-16] MEDS: Bupivacaine 0.25% 30 ML Vial (20:00)
[2022-06-16] MEDS: Heparin Injection (Vial) 5,000 UNIT/ML VIAL 5000 UNIT (20:00)
--- NOTE | 2022-06-16 21:11 | OP.PCM_ITS ---
Report of Operation Date of Procedure: 06/16/22 Pre-Operative Diagnosis: left common femoral artery occlusion, acute limb [place] Post-Operative Diagnosis: same Surgery/Procedure Performed:: left femoral thromboendarterectomy left sartorius flaps left 4 compartment fasciotomies Description of Surgical Findings:: acute thrombus, ulcerated femoral plaque Surgeon: Sergei Joshua Type of Anesthesia: General Estimated Blood Loss (mL): 50 Description of Procedure: HPI: Patient is a 71-year-old male who presented with acute onset left lower extremity pain and paresthesias as well as discoloration and cool to touch skin. He had CT angiography that revealed an acute left common femoral occlusion with reconstitution of the SFA popliteal as well as the profunda. He had motor intact but some diminished sensation. He was placed on heparin and taken emergently to the OR for thrombectomy, fasciotomies. Description of procedure: Upon obtaining form consent and verification correct patient procedure site patient was taken to the operating was placed under general anesthesia. He was then positioned prepped and draped in usual sterile fashion timeout was performed. Oblique incision was made over the left common femoral artery and Bovie electrocautery was dissect down through subcutaneous tissue. Self-retaining retractors) position further dissection carried down to the femoral sheath which was then incised vertically exposing the common femoral artery. Sharp dissection was then used to dissect free the common femoral artery proximally up under the inguinal ligament where a vessel loop was placed for proximal control. We then turned our attention distally, dissected down onto the SFA and profunda branches to a soft plantable position. Right angle was used to place a vessel loop lead to the location and the patient was rebolused with heparin. Posterior then occluded with Vesseloops in longitudinal arteriotomy created with 11 blade extended with Cano scissors from the proximal common femoral artery down onto the proximal superficial femoral artery. There was acute to subacute appearing thrombus in the entirety of the common femoral artery and down into the origins of the profunda and the SFA, as well as a moderate amount of plaque but with some ulceration. It was not entirely certain whether this was an in situ thrombosis or embolic event. We then extracted thrombus from the common femoral as well as the proximal portion of the SFA and the profunda. Both SFA and profunda had copious backbleeding after thrombus was removed from the origin and both flushed easily with heparinized saline. Given the uncertain etiology of the thrombus a endarterectomy was performed with satisfactory endpoint distally onto the SFA and the profunda. The distal endpoint was then tacked with 7-0 Prolene and a bovine pericardial patch brought in the field. The patch was then secured in position using a 5-0 Prolene in a running fashion. Prior to completing suture line the vessels were backbled and after completing the suture line clamps removed and satisfactory stasis was noted. There is a palpable pulse across the common femoral artery onto the bifurcation vessels, and a nonobstructive Doppler signal in each of the outflow vessels. Given the depth of the operative field and patient comorbidities including diabetes is felt that a prophylactic sartorius flap would prevent any significant deep space infection. We then turned attention to mobilizing the sartorius, dissecting laterally with Bovie. We then incised the fascia vertically up to the ASIS and mobilized the sartorius along its lateral edge. We then took down the insertion of the sartorius with Bovie and transpose the sartorius over the femoral vessels. This region without any tension and could easily cover the entirety of the patch. Next we turned our attention to the fasciotomies, with vertical incision along the medial lateral aspect of the lower leg. Bovie electrocautery was dissect down through the subcutaneous tissue down to the fascia of the medial aspect and the superficial and deep posterior compartments were released down to the neurovascular space. There is a palpable pulse in the popliteal artery and the tibioperoneal trunk. Next Bovie was used to dissect down to the anterior and lateral compartments, both of which were incised longitudinally. All muscle was viable and reactive the Bovie. We then inspected for hemostasis and in the femoral incision we anchored to the sartorius with 2-0 interrupted Vicryl. The groin incision was then closed with 3-0 Vicryl, 4-0 Monocryl, Dermabond and Prevena. The fasciotomy incisions were closed with loosely approximated carli. Patient was then a wakened from anesthesia taken to the recovery room anticipated admission to the PCU.
--- NOTE | 2022-06-16 21:41 | EKG12_ITS ---
Test Reason : PRE-OP Blood Pressure : / mmHG Vent. Rate : 050 BPM Atrial Rate : 050 BPM P-R Int : 222 ms QRS Dur : 150 ms QT Int : 548 ms P-R-T Axes : 000 -59 085 degrees QTc Int : 499 ms Sinus bradycardia with 1st degree A-V block with occasional Premature ventricular complexes Right bundle branch block Left anterior fascicular block Bifascicular block Abnormal ECG Confirmed by JOHN WILLETT, MOE ([id number]), editor producer LANDON GARCIA ([id number]) on 06/22/2022 6:51:15 AM Referred By: CANDELARIO Confirmed By:SHAHBAZ LOPEZ MD
[2022-06-16 22:06] LABS: Bedside Glucose 95 mg/dL (74-106)
[2022-06-16 22:10] LABS: Anion Gap 3 (5-15); BUN 25 mg/dL (7-18); BUN/Creat Ratio 16.8 RATIO (10-20); Calcium,Total 8.6 mg/dL (8.5-10.1); Chloride 107 mmol/L (98-107); Creatinine, Serum 1.49 mg/dL (0.70-1.30); EST Glomerular Filtration Rate 49 mL/min (>60); Est Glom Filt Rate - Afr Amer 60 mL/min (>60); Estimated Creatinine Clearance 51.39 ml/min; Glucose 91 mg/dL (74-106); Potassium 4.1 mmol/L (3.5-5.1); Sodium Level 138 mmol/L (136-145); Troponin-I HS 41 pg/mL (3.0-78.0)
[2022-06-16 22:14] LABS: CPK Total, Creatine Kinase 249 U/L (39-308)
[2022-06-16] MEDS: 0.9% Normal Saline 1,000 ML 125 ML IV (23:37)
[2022-06-17] VITALS (11 sets, daily range): BP systolic 103–133; BP diastolic 53–75; PULSE 56–84; RESP 14–18; TEMP 36.2–37.7; O2SAT 92–98; BMI 32.0
[2022-06-17] MEDS: Acetaminophen 500 MG Tablet 1000 MG PO ×3 (00:05→14:50)
[2022-06-17] MEDS: Famotidine 20 MG Tablet PO ×3 (00:09→21:06)
[2022-06-17 00:16] LABS: Bedside Glucose 116 mg/dL (74-106)
--- NOTE | 2022-06-17 01:45 | NURSING ---
Dr Joshua was notified of large amount of drainage from left leg surgical site. Has been changed twice on pcu and once in pacu prior to coming up to floor. states it will seep and to place and esme wrap from toes to knees, and to keep it elevated on a couple pillows. Further clarified ok for po meds and to otherwise keep npo.
[2022-06-17] MEDS: Ondansetron 4 MG/2 ML Vial IV (01:52)
[2022-06-17 05:06] LABS: Absolute Lymphocyte Count 1.69 X10^3/uL (0.83-4.51); Absolute Neutrophil Count 15.3 X10^3/uL (2.0-7.7); Basophil# 0.06 X10^3/uL; Basophil% 0.3 % (0-1); Eosinophil# 0.01 X10^3/uL; Eosinophils% 0.1 % (0-5); Hemoglobin 14.6 g/dL (13.0-16.5); Lymphocyte # 1.69 X10^3/ul (0.83-4.51); Lymphocyte % 9.4 % (19-41); Mean Corp Hgb Conc 32.4 g/dL (32-36); Mean Corpuscular Hgb 29.2 pg (27.0-32.0); Mean Platelet Vol. 11.8 fl (6.2-12.0); Monocyte# 0.81 X10^3/uL; Monocyte% 4.5 % (0-10); NRBC Flagged by Analyzer 0 % (0-5); Neutrophil # 15.27 X10^3/uL (2.7-7.7); Neutrophil % 84.8 % (47-70); Platelet Count 174 K/mm3 (150-450); RBC Distribution Width CV 15.8 % (11.6-14.6); RBC Distribution Width SD 52.2 fl (35.1-43.9)
[2022-06-17 05:31] LABS: BUN 24 mg/dL (7-18); CPK Total, Creatine Kinase 248 U/L (39-308); Creatinine, Serum 1.35 mg/dL (0.70-1.30); Estimated Creatinine Clearance 56.72 ml/min; Glucose 154 mg/dL (74-106)
[2022-06-17 05:32] LABS: Anion Gap 7 (5-15); BUN/Creat Ratio 17.8 RATIO (10-20); Calcium,Total 8.4 mg/dL (8.5-10.1); Chloride 108 mmol/L (98-107); EST Glomerular Filtration Rate 55 mL/min (>60); Est Glom Filt Rate - Afr Amer 67 mL/min (>60); Potassium 4.9 mmol/L (3.5-5.1); Sodium Level 137 mmol/L (136-145)
[2022-06-17] MEDS: 0.9% Normal Saline 1,000 ML 125 ML IV (06:17)
[2022-06-17] MEDS: Levothyroxine 175 MCG Tablet PO (06:17)
[2022-06-17 07:25] LABS: Bedside Glucose 150 mg/dL (74-106)
[2022-06-17 07:56] LABS: Partial Thromboplast Time 31.6 Seconds (24.1-36.2)
[2022-06-17] MEDS: Aspirin 81 MG TAB.CHEW PO (09:04)
[2022-06-17] MEDS: Ezetimibe 10 MG Tablet PO (10:13)
[2022-06-17] MEDS: Isosorbide Mononitrate 60 MG Tablet PO (10:13)
[2022-06-17] MEDS: Cholecalciferol (VIT D3) 25 MCG TABLET (1,000 UNITS) PO (10:13)
[2022-06-17] MEDS: Losartan Potassium 25 MG Tablet PO (10:14)
[2022-06-17] MEDS: Metoprolol Tartrate 25 MG Tablet PO ×2 (10:14→21:10)
--- NOTE | 2022-06-17 10:40 | CASEMGMT ---
KATIE HERNÁNDEZ Face to Face with patient for initial transition planning/care coordination assessment. KATIE HERNÁNDEZ introduced self and role at [facility]. Patient lying in bed, alert and oriented. Patient willing to participate in assessment and is able to answer all questions appropriately. Care providers, pharmacy, and demographics verified. Patient wishes to discharge home, will monitor wound care at discharge. Patient states he has no further needs or concerns at this time. CM to follow for discharge planning needs that may arise. PCP: [place] Specialists: Eliza [place] [employer] Clerk [employer] Maintenance Preferred [facility]acy: [facility] Insurance: [employer] [facility] Prescription Benefit: [place] Living Will/HPOA: none LNOK: Living Arrangements: Patient lives with in a 2 story townhouse. Patient is independent and able to ambulate stairs. Transportation: self, DME/HHC: Patient has walker, pulse ox, bipap, glucometer with supplies, and insulin with supplies. Patient has had [facility] in the past. No previous SNF. KATIE HERNÁNDEZ discussed having come in to learn wound care, patient voiced understanding. Disposition Plan: Patient to discharge home with family support and follow-up plans in place. Will monitor wound care at discharge. Josefina DEXTER, RN, CM
[2022-06-17] MEDS: Tamsulosin HCl 0.4 MG Capsule PO (11:16)
[2022-06-17] MEDS: Insulin Lispro 100 UNIT/ML INSULN.PEN SC ×3 (12:07→22:23)
[2022-06-17 12:25] LABS: Bedside Glucose 217 mg/dL (74-106)
--- NOTE | 2022-06-17 16:24 | ECHOCS_ITS ---
Reason For Study: Emboli- Left Fem Thromboendarterectomy (06/16/22) Procedure This was a 2D Doppler, Color Flow transthoracic echocardiogram. The study was technically difficult. Contrast injection was performed. Patient scanned supine due to recent procedure and wound vac on left femoral. Exam performed portable in patient room. Left Ventricle Normal LV size. The estimated ejection fraction is 55 %. No evidence for diastolic dysfunction. No regional wall motion abnormalities noted. Right Ventricle Normal RV size. Normal systolic function. Atria The left atrium is mildly enlarged. Normal right atrium. No doppler evidence for ASD. Mitral Valve There is no mitral valve stenosis. Trivial mitral valve insufficiency. Tricuspid Valve There is no tricuspid stenosis. Trivial tricuspid valve insufficiency. Unable to estimate RV systolic pressure due to insufficient tricuspid regurgitant envelope. Aortic Valve Trisinus/trileaflet aortic valve. There is no aortic stenosis. No aortic valve insufficiency. Pulmonic Valve There is no pulmonic valvular stenosis. Trivial pulmonic valve insufficiency. Great Vessels Normal aortic root. Pericardium/Pleural No pericardial effusion. Medication Diluted definity 2ml given slow IV push to enhance endocardial definition. MMode/2D Measurements & Calculations LVIDd: 6.0 cm IVSd: 1.0 cm Ao root diam: 3.6 cm LVIDs: 4.6 cm LVPWd: 0.85 cm LA dimension: 5.1 cm RVDd: 3.4 cm FS: 23.5 % LAV(MOD-bp): 87.0 ml LA A4 area: 28.6 cm2 RA A4 area: 20.1 cm2 LAV(MOD-bp) Indexed: 37.3 ml/m2 LAV(MOD-sp2): 73.4 ml LAV(MOD-sp4): 91.5 ml Time Measurements MV dec time: 0.21 sec Doppler Measurements & Calculations MV E max christian: 49.0 cm/sec Lat Peak E' Christian: 12.1 cm/sec Med Peak E' Christian: 7.6 cm/sec MV A max christian: 65.1 cm/sec E/E' lat: 4.0 E/E' med: 6.5 MV E/A: 0.75 MV V2 max: 78.6 cm/sec MV P1/2t max christian: 56.1 cm/sec Ao V2 max: 108.5 cm/sec MV max P.5 mmHg MV P1/2t: 73.3 msec Ao max P.7 mmHg MV V2 mean: 44.1 cm/sec MV dec slope: 224.4 cm/sec2 Ao V2 mean: 71.8 cm/sec MV mean P.91 mmHg Ao mean P.4 mmHg MV V2 VTI: 19.0 cm MVA(P1/2t): 3.0 cm2 Ao V2 VTI: 22.6 cm LV V1 max: 107.6 cm/sec MR max christian: 489.7 cm/sec PA V2 max: 121.3 cm/sec LV V1 max P.6 mmHg MR max P.9 mmHg PA V2 mean: 77.1 cm/sec ECHO/Echo Complete W/ Contrast Interpretation Summary The estimated ejection fraction is 55 %. No evidence for diastolic dysfunction. The left atrium is mildly enlarged. Trivial mitral valve insufficiency. Ordering Physician: Jacqueline Ott Referring Physician: Ellis Fox Performed By: Herson Ocampo RCS
--- NOTE | 2022-06-17 16:40 | PCM.PN.SRG ---
Subjective Subjective Patient is doing well today. He is reporting minimal pain to his LLE, primarily complains of soreness at the groin incision site. He notes his leg has much better color and sensation in his foot has returned to normal. He did bleed through his mepilex surgical dressings and kerlix wrap last night, the kerlix wrap was changed twice overnight. CORNELL wrap was added overnight to try to reduce the oozing. He has been hemodynamically stable. He has had some nausea, but no vomiting. His diet has been progressed throughout the day and he has tolerated well. He has had difficulty urinating throughout the day, has some burning with urination. He has not ambulated much today due to soreness. Objective Data Objective Data Vital Signs: Vital Signs Temp Pulse Resp BP Pulse Ox O2 Del Method O2 Flow Rate 97.3 F L 63 16 133/70 H 97 Room Air 2 06/17/22 10:00 06/17/22 10:14 06/17/22 10:00 06/17/22 10:14 06/17/22 10:00 06/17/22 14:52 06/17/22 06:36 Oxygen Flow Rate (L/min) 2 Oxygen Delivery Method Room Air Weight: 242 lb 8.136 oz Body Mass Index (BMI) 32.0 Intake & Output: Intake and Output for Last 24 Hours 06/15/22 06/16/22 06/17/22 23:59 23:59 23:59 Intake Total 134.5 / 184.5 2433.33 / 2433.33 Output Total 350 / 350 150 / 150 Balance -215.5 / -165.5 2283.33 / 2283.33 Lab / Micro Data Result Diagrams: 06/17/22 04:48 06/17/22 04:48 Labs: Laboratory Results - last 24 hr 06/16/22 15:11: Blood Type O NEGATIVE, Antibody Screen NEGATIVE, Crossmatch See Detail 06/16/22 21:41: Sodium 138, Potassium 4.1, Chloride 107, Carbon Dioxide 28.0, Anion Gap 3 L, BUN 25 H, Creatinine 1.49 H, Estim Creat Clear Calc 51.39, Est GFR (MDRD) Af Amer 60, Est GFR (MDRD) Non-Af 49 L, BUN/Creatinine Ratio 16.8, Glucose 91, Calcium 8.6, Troponin I High Sens 41 06/16/22 21:41: Total Creatine Kinase 249 06/16/22 21:47: POC Glucose 95 06/16/22 23:40: POC Glucose 116 H 06/17/22 04:48: Total Creatine Kinase 248 06/17/22 04:48: Sodium 137, Potassium 4.9, Chloride 108 H, Carbon Dioxide 22.0, Anion Gap 7, BUN 24 H, Creatinine 1.35 H, Estim Creat Clear Calc 56.72, Est GFR (MDRD) Af Amer 67, Est GFR (MDRD) Non-Af 55 L, BUN/Creatinine Ratio 17.8, Glucose 154 H, Calcium 8.4 L 06/17/22 04:48: WBC 18.0 H, RBC 5.00, Hgb 14.6, Hct 45.0, MCV 90.0, MCH 29.2, MCHC 32.4, RDW Std Deviation 52.2 H, RDW Coeff of [place] 15.8 H, Plt Count 174, MPV 11.8, Immature Gran % (Auto) 0.900, Neut % (Auto) 84.8 H, Lymph % (Auto) 9.4 L, [place] % (Auto) 4.5, Eos % (Auto) 0.1, Baso % (Auto) 0.3, Absolute Neuts (auto) 15.3 H, Absolute Lymphs (auto) 1.69, Nucleated RBC % 0 06/17/22 06:20: POC Glucose 150 H 06/17/22 06:45: APTT 31.6 06/17/22 11:55: POC Glucose 217 H Physical Exam Const alert, oriented x3 and no apparent distress General Appearance: cooperative and comfortable HEENT normocephalic, head/scalp atraumatic, hearing grossly normal bilaterally, external ears normal and external nose normal Eyes EOMs intact bilaterally General Eye: normal appearance of both eyes Resp normal respiratory effort, normal air movement, no retractions and no use of accessory muscles Effort and Inspection: able to speak in complete sentences; Negative for stridor or audible wheezes Cardio regular rate and regular rhythm Peripheral Pulses: brachial pulses present and radial pulses present Extremity Extremity Narrative: LLE warm and pink, no pallor or mottling. Good, stable DP and PT doppler signals. L groin incision site with Provena vacuum dressing C/D/I, well-sealed. L lower leg fasciotomy incisions with minimal oozing today, carli intact without significant tension on skin edges, no significant increase in swelling noted. No significant TTP. Neuro oriented x3, CN's II-XII intact bilaterally, moves all extremities, no focal motor deficits and no sensory deficits noted Speech: speech normal Psych mental status grossly normal, thought process normal, cooperative, affect normal, speech normal and activity/motor behavior normal Assessment & Plan Assessment/Plan (1) Thrombosis of left common femoral artery: PLAN: Patient is POD#1 from left femoral thromboendarterectomy with left sartorius flap and left 4 compartment fasciotomies. L groin incision with Provena wound vac intact and functioning without issue. Leave in place for 1 week unless malfunction/unable to maintain seal. I removed the surgical site dressings from the fasciotomy incision sites today. [place] were intact, skin edges well-approximated. Minimal oozing was noted. Replaced dry dressing and CORNELL wrap. Change dressing as needed to keep clean and dry. Hgb, potassium, and CK stable overnight. D/c IV fluids, continue good oral intake. Will repeat CBC and BMP in the morning. Will continue with low-dose heparin at 500 units/hr for now. Plan to increase to full dose tomorrow to ensure tolerated prior to transitioning to DOAC. Started tamsulosin this morning due to his difficulty urinating, he has subsequently voided this afternoon. Burning with urination likely secondary to purcell from OR. Continue to monitor. Continue with full diet as tolerated. Okay to restart home diabetic medications. QAM/HS glucose checks. Possible that his presentation was due to embolic event. Ordered echo. Plan to d/c patient with 30-day holter monitor. Charges/Coding Visit Charges Inpatient E&M: 00427 [facility] L3
[2022-06-17 17:05] LABS: Bedside Glucose 238 mg/dL (74-106)
[2022-06-17] MEDS: metFORMIN HCl 1,000 MG Tablet 1000 MG PO (21:10)
--- NOTE | 2022-06-17 22:25 | NURSING ---
pt requests for sugar to be checked now and sliding scale given before pt falls asleep.
[2022-06-17 22:45] LABS: Bedside Glucose 287 mg/dL (74-106)
[2022-06-17] MEDS: HEPARIN/D5w 25,000 UNITS 25,000 UNITS/250 ML IV.SOLN. 5 UNITS CONT INF (22:50)
[2022-06-18 02:52] VITALS: BMI 32.0
[2022-06-18 04:30] VITALS: BP 131/69; PULSE 74; RESP 17; TEMP 36.9; O2SAT 97
[2022-06-18] MEDS: Levothyroxine 175 MCG Tablet PO (05:27)
[2022-06-18] MEDS: Insulin Lispro 100 UNIT/ML INSULN.PEN SC ×4 (05:32→21:23)
[2022-06-18 06:18] LABS: Absolute Lymphocyte Count 1.65 X10^3/uL (0.83-4.51); Absolute Neutrophil Count 9.9 X10^3/uL (2.0-7.7); Basophil# 0.06 X10^3/uL; Basophil% 0.5 % (0-1); Eosinophil# 0.04 X10^3/uL; Eosinophils% 0.3 % (0-5); Hematocrit 40.6 % (40-54); Hemoglobin 13.3 g/dL (13.0-16.5); Lymphocyte # 1.65 X10^3/ul (0.83-4.51); Lymphocyte % 12.8 % (19-41); Mean Corp Hgb Conc 32.8 g/dL (32-36); Mean Corpuscular Hgb 29.9 pg (27.0-32.0); Mean Corpuscular Volume 91.2 fL (80-94); Monocyte# 1.09 X10^3/uL; Monocyte% 8.4 % (0-10); NRBC Flagged by Analyzer 0 % (0-5); Neutrophil # 9.94 X10^3/uL (2.7-7.7); Neutrophil % 76.9 % (47-70); Platelet Count 156 K/mm3 (150-450); RBC Distribution Width CV 15.9 % (11.6-14.6); RBC Distribution Width SD 53.2 fl (35.1-43.9); Red Blood Count 4.45 M/mm3 (4.6-6.2); White Blood Count 12.9 K/mm3 (4.4-11.0)
[2022-06-18 07:01] LABS: Anion Gap 6 (5-15); BUN 25 mg/dL (7-18); Calcium,Total 8.5 mg/dL (8.5-10.1); Chloride 107 mmol/L (98-107); Creatinine, Serum 1.56 mg/dL (0.70-1.30); EST Glomerular Filtration Rate 47 mL/min (>60); Est Glom Filt Rate - Afr Amer 57 mL/min (>60); Estimated Creatinine Clearance 49.08 ml/min; Glucose 187 mg/dL (74-106); Potassium 4.3 mmol/L (3.5-5.1); Sodium Level 138 mmol/L (136-145)
[2022-06-18 07:15] LABS: Bedside Glucose 193 mg/dL (74-106)
[2022-06-18 08:40] VITALS: BP 127/54; PULSE 70; RESP 14; TEMP 37.1; O2SAT 94
[2022-06-18] MEDS: Aspirin 81 MG TAB.CHEW PO (08:41)
[2022-06-18 08:42] VITALS: PULSE 64
[2022-06-18] MEDS: Losartan Potassium 25 MG Tablet PO (08:42)
[2022-06-18] MEDS: Isosorbide Mononitrate 60 MG Tablet PO (08:42)
[2022-06-18] MEDS: Metoprolol Tartrate 25 MG Tablet PO ×2 (08:42→21:20)
[2022-06-18] MEDS: Cholecalciferol (VIT D3) 25 MCG TABLET (1,000 UNITS) PO (08:42)
[2022-06-18] MEDS: Famotidine 20 MG Tablet PO ×2 (08:42→21:19)
[2022-06-18] MEDS: Ezetimibe 10 MG Tablet PO (08:43)
--- NOTE | 2022-06-18 08:46 | PCM.PN.SRG ---
Subjective Subjective Feeling better today. Able to get out of bed without assistance but unsteady. Pain controlled, foot pain resolved. Objective Data Objective Data A&O x 3, NAD RRR Resp non labored, no accessory muscle use +DP/PT pulse, cap refill normal compartments soft, inc clean/dry/intact Vital Signs: Vital Signs Temp Pulse Resp BP Pulse Ox O2 Del Method O2 Flow Rate 98.7 F 64 14 127/54 H 94 Room Air 2 06/18/22 08:40 06/18/22 08:42 06/18/22 08:40 06/18/22 08:40 06/18/22 08:40 06/18/22 08:40 06/17/22 06:36 Oxygen Flow Rate (L/min) 2 Oxygen Delivery Method Room Air Weight: 242 lb 8.136 oz Body Mass Index (BMI) 32.0 Intake & Output: Intake and Output for Last 24 Hours 06/16/22 06/17/22 06/18/22 23:59 23:59 23:59 Intake Total 134.5 / 184.5 2788.83 / 2788.83 Output Total 350 / 350 550 / 1200 700 / 700 Balance -215.5 / -165.5 2238.83 / 1588.83 -700 / -700 Lab / Micro Data Result Diagrams: 06/18/22 05:55 06/18/22 05:55 Labs: Laboratory Results - last 24 hr 06/17/22 11:55: POC Glucose 217 H 06/17/22 16:27: POC Glucose 238 H 06/17/22 22:22: POC Glucose 287 H 06/18/22 05:31: POC Glucose 193 H 06/18/22 05:55: WBC 12.9 H, RBC 4.45 L, Hgb 13.3, Hct 40.6, MCV 91.2, MCH 29.9, MCHC 32.8, RDW Std Deviation 53.2 H, RDW Coeff of [place] 15.9 H, Plt Count 156, MPV 12.0, Immature Gran % (Auto) 1.100 H, Neut % (Auto) 76.9 H, Lymph % (Auto) 12.8 L, [place] % (Auto) 8.4, Eos % (Auto) 0.3, Baso % (Auto) 0.5, Absolute Neuts (auto) 9.9 H, Absolute Lymphs (auto) 1.65, Nucleated RBC % 0 06/18/22 05:55: Sodium 138, Potassium 4.3, Chloride 107, Carbon Dioxide 25.0, Anion Gap 6, BUN 25 H, Creatinine 1.56 H, Estim Creat Clear Calc 49.08, Est GFR (MDRD) Af Amer 57 L, Est GFR (MDRD) Non-Af 47 L, BUN/Creatinine Ratio 16.0, Glucose 187 H, Calcium 8.5 Assessment & Plan Assessment/Plan (1) Thrombosis of left common femoral artery: PLAN: -hgb stable, no significant bleeding from fasciotomy incisions -heparin to full dose; if no bleeding then to oral agent later today -echo -PT, progressive ambulation -dispo planning based on PT recommendations and patient comfort ambulating
[2022-06-18] MEDS: Insulin Human 75/25 Kwickpen 40 UNIT SC (09:09)
[2022-06-18] MEDS: Tamsulosin HCl 0.4 MG Capsule PO (11:15)
[2022-06-18 11:36] LABS: Bedside Glucose 227 mg/dL (74-106)
[2022-06-18] MEDS: Acetaminophen 500 MG Tablet 1000 MG PO (13:54)
[2022-06-18 15:02] VITALS: BP 143/55; PULSE 64; RESP 16; TEMP 36.8; O2SAT 98
[2022-06-18] MEDS: Insulin Human 75/25 Kwickpen 32 UNIT SC (16:12)
[2022-06-18 16:35] LABS: Bedside Glucose 308 mg/dL (74-106)
[2022-06-18 21:00] VITALS: BP 114/53; PULSE 74; RESP 18; TEMP 36.4; O2SAT 97
[2022-06-18] MEDS: metFORMIN HCl 1,000 MG Tablet 1000 MG PO (21:19)
[2022-06-18 21:20] VITALS: BP 114/53; PULSE 78
[2022-06-19 01:31] LABS: Bedside Glucose 169 mg/dL (74-106)
[2022-06-19 03:00] VITALS: BP 126/87; PULSE 74; RESP 18; TEMP 36.2; O2SAT 95
[2022-06-19] MEDS: Levothyroxine 175 MCG Tablet PO (06:33)
[2022-06-19 07:10] LABS: Bedside Glucose 142 mg/dL (74-106)
[2022-06-19 08:09] VITALS: PULSE 74
[2022-06-19 08:33] LABS: Absolute Lymphocyte Count 1.55 X10^3/uL (0.83-4.51); Absolute Neutrophil Count 8.7 X10^3/uL (2.0-7.7); Basophil# 0.05 X10^3/uL; Basophil% 0.4 % (0-1); Eosinophil# 0.15 X10^3/uL; Eosinophils% 1.3 % (0-5); Hemoglobin 12.2 g/dL (13.0-16.5); Lymphocyte # 1.55 X10^3/ul (0.83-4.51); Lymphocyte % 13.6 % (19-41); Mean Corpuscular Volume 90.9 fL (80-94); NRBC Flagged by Analyzer 0 % (0-5); Neutrophil # 8.74 X10^3/uL (2.7-7.7); Neutrophil % 76.9 % (47-70); Platelet Count 119 K/mm3 (150-450); RBC Distribution Width CV 15.8 % (11.6-14.6); RBC Distribution Width SD 52.1 fl (35.1-43.9); Red Blood Count 4.07 M/mm3 (4.6-6.2); White Blood Count 11.4 K/mm3 (4.4-11.0)
[2022-06-19 08:57] LABS: International Normalized Ratio 1.1; Prothrombin Time (Protime)PT. 14.2 SECONDS (11.7-14.9)
[2022-06-19 08:58] LABS: Partial Thromboplast Time 33.3 Seconds (24.1-36.2)
[2022-06-19 09:00] VITALS: BP 124/68; PULSE 74; RESP 17; TEMP 36.9; O2SAT 93
[2022-06-19] MEDS: HEPARIN/D5w 25,000 UNITS 25,000 UNITS/250 ML IV.SOLN. 15 UNITS CONT INF (09:01)
[2022-06-19] MEDS: Famotidine 20 MG Tablet PO (09:05)
[2022-06-19] MEDS: Isosorbide Mononitrate 60 MG Tablet PO (09:05)
[2022-06-19] MEDS: Aspirin 81 MG TAB.CHEW PO (09:05)
[2022-06-19] MEDS: Losartan Potassium 25 MG Tablet PO (09:05)
[2022-06-19 09:06] VITALS: PULSE 74
[2022-06-19] MEDS: Ezetimibe 10 MG Tablet PO (09:06)
[2022-06-19] MEDS: Cholecalciferol (VIT D3) 25 MCG TABLET (1,000 UNITS) PO (09:06)
[2022-06-19] MEDS: Metoprolol Tartrate 25 MG Tablet PO (09:06)
[2022-06-19] MEDS: Insulin Human 75/25 Kwickpen 40 UNIT SC (09:07)
[2022-06-19 11:30] LABS: Bedside Glucose 173 mg/dL (74-106)
[2022-06-19] MEDS: Insulin Lispro 100 UNIT/ML INSULN.PEN SC (11:47)
[2022-06-19] MEDS: Tamsulosin HCl 0.4 MG Capsule PO (11:47)
[2022-06-19] MEDS: 0.9% Saline Lock 10 ML Syringe IV (11:48)
--- NOTE | 2022-06-19 11:49 | CASEMGMT ---
KATIE HERNÁNDEZ reviewed therapy notes and patient ambulated 150feet SBA. KATIE HERNÁNDEZ discussed care with [facility] FELISA. Patient to discharge home on Xarelto with planned discharge for today. KATIE HERNÁNDEZ in to patient's room to discuss needs at discharge. Patient denies needs at discharge, to come in to learn wound care. Xarelto savings card provided to patient. Patient states he would like prescriptions filled at [facility], chart updated. Patient had no further questions or concerns at this time.
--- NOTE | 2022-06-19 12:48 | PCM.PN.SRG ---
Subjective Subjective Patient is feeling well, no N/V, F/C, new/worsening LLE pain. He notes soreness at the L groin incision site but this is tolerable and well managed with PO medications. Started full dose heparin this morning, no signs/symptoms of increased bleeding. He ambulated yesterday and reports it went well. He is voiding without difficulty and tolerating diet. He is feeling ready to go home. Objective Data Objective Data A&O x 3, NAD RRR Resp non labored, no accessory muscle use +DP/PT pulse, cap refill normal compartments soft, carli intact with skin edges well-approximated, no oozing noted L groin incision with Provena vac dressing in place, well-sealed, some surrounding ecchymosis but no hematoma/swelling. Vital Signs: Vital Signs Temp Pulse Resp BP Pulse Ox O2 Del Method O2 Flow Rate 98.5 F 74 17 124/68 H 93 Room Air 2 06/19/22 09:00 06/19/22 09:06 06/19/22 09:00 06/19/22 09:00 06/19/22 09:00 06/19/22 09:00 06/17/22 06:36 Oxygen Flow Rate (L/min) 2 Oxygen Delivery Method Room Air Weight: 242 lb 8.136 oz Body Mass Index (BMI) 32.0 Intake & Output: Intake and Output for Last 24 Hours 06/17/22 06/18/22 06/19/22 23:59 23:59 23:59 Intake Total 2788.83 / 2788.83 170.92 / 170.92 Output Total 550 / 1200 2200 / 2200 1300 / 1300 Balance 2238.83 / 1588.83 -2200 / -2200 -1129.08 / -1129.08 Lab / Micro Data Result Diagrams: 06/19/22 08:20 06/18/22 05:55 Labs: Laboratory Results - last 24 hr 06/18/22 16:11: POC Glucose 308 H 06/18/22 21:22: POC Glucose 169 H 06/19/22 06:35: POC Glucose 142 H 06/19/22 08:20: WBC 11.4 H, RBC 4.07 L, Hgb 12.2 L, Hct 37.0 L, MCV 90.9, MCH 30.0, MCHC 33.0, RDW Std Deviation 52.1 H, RDW Coeff of [place] 15.8 H, Plt Count 119 L, MPV 12.0, Immature Gran % (Auto) 0.800, Neut % (Auto) 76.9 H, Lymph % (Auto) 13.6 L, [place] % (Auto) 7.0, Eos % (Auto) 1.3, Baso % (Auto) 0.4, Absolute Neuts (auto) 8.7 H, Absolute Lymphs (auto) 1.55, Nucleated RBC % 0 06/19/22 08:20: PT 14.2, INR 1.1, APTT 33.3 06/19/22 11:07: POC Glucose 173 H Radiography Diagnostic Testing: Radiology Impression Echocardiogram 06/17/22 16:24 Interpretation Summary The estimated ejection fraction is 55 %. No evidence for diastolic dysfunction. The left atrium is mildly enlarged. Trivial mitral valve insufficiency. Ordering Physician: Jacqueline Ott Referring Physician: Ellis Fox Performed By: Herson Ocampo RCS Assessment & Plan Assessment/Plan (1) Thrombosis of left common femoral artery: PLAN: Patient is POD#3 from left femoral thromboendarterectomy with left sartorius flap and left 4 compartment fasciotomies. Incision sites C/D/I with no oozing noted. He is tolerating diet, voiding without difficulty, and incisional site pain is well-controlled. He has tolerated full anticoagulation so will transition to DOAC. Start Xarelto 20mg and stop heparin drip 1 hour after administration. PT worked with him yesterday afternoon, he ambulated well on his own. Echo revealed no significant abnormality. Placed order for 30 day event monitor which will be mailed to his home. Plan for d/c later this afternoon.
[2022-06-19] MEDS: Rivaroxaban 20 MG Tablet PO (13:40)
--- NOTE | 2022-06-19 14:21 | DS.PCM_ITS ---
Providers Date of Admission: 06/16/22 Date of Discharge: 06/19/22 Primary Care Physician: Dr. Ellis Fox MD Reason For Visit: ACUTE LEFT LOWER EXTREMIT ISCHEMIA Diagnosis Discharge Diagnosis (1) Thrombosis of left common femoral artery: Status: Acute Code(s): I74.3 - Embolism and thrombosis of arteries of the lower extremities Medications at Discharge Home Medications metformin 500 mg tablet 1,000 mg PO QHS DM 03/19/17 metoprolol tartrate 25 mg tablet 25 mg PO BID HEART/BLOOD PRESSURE #60 tabs 03/29/18 losartan 25 mg tablet 25 mg PO DAILY BP #90 tabs 05/25/18 nitroglycerin 0.4 mg sublingual tablet 0.4 mg sublingual Q5-15M PRN chest pain #90 tabs 05/25/18 aspirin 81 mg chewable tablet 81 mg PO DAILY@0800 HEALTH MAINTENANCE 06/16/22 cholecalciferol (vitamin D3) 25 mcg (1,000 unit) tablet 25 mcg PO DAILY SUPPLEMENT 06/16/22 ezetimibe 10 mg tablet (Zetia) 10 mg PO DAILY DM 06/16/22 insulin human U-100 NPH-regulr 70-30 mix 100 unit/mL subcutaneous susp (Novolin 70/30 U-100 Insulin) 32 unit subcut DAILY DM 06/16/22 insulin human U-100 NPH-regulr 70-30 mix 100 unit/mL subcutaneous susp (Novolin 70/30 U-100 Insulin) 40 unit subcut DAILY DM 06/16/22 isosorbide mononitrate 60 mg tablet,extended release 24 hr 60 mg PO DAILY HEART 06/16/22 levothyroxine 175 mcg tablet 175 mcg PO DAILY THYROID 06/16/22 lutein 20 mg tablet 20 mg PO DAILY SUPPLEMENT 06/16/22 pediatric multivit no.17-ferrous fumarate 15 mg iron chewable tablet 1 tab PO DAILY SUPPLEMENT 06/16/22 oxycodone 5 mg capsule 5 mg PO TID PRN pain 3 days #9 caps 06/19/22 rivaroxaban 20 mg tablet (Xarelto) 20 mg PO DAILY #30 tabs 06/19/22 tamsulosin 0.4 mg capsule 0.4 mg PO DAILY@1200 30 days #30 caps 06/19/22 Hospital Course Operations - (left femoral thromboendarterectomy with sartorius flap, left 4 compartment fasciotomies, ) Summary of Care Provided Hospital Course: Patient presented to the [facility] ED on 06/16/2022 with acute onset of left lower extremity pain, discoloration, and coolness to touch since the prior morning. He was also found to have diminished sensation to the left foot but motor function was intact. CTA was obtained which revealed left common femoral occlusion with SFA and profunda reconstitution. He was initiated on a heparin drip. Patient was taken for left femoral thromboendarterectomy with left 4 compartment fasciotomies later in the afternoon of 06/16/2022. Groin incision site closed with skin glue and Prevena vacuum dressing. The fasciotomy sites were closed with wide spaced carli to accommodate swelling. He tolerated the procedure well. Surgery achieved satisfactory results with improved blood flow down the left lower extremity. Patient had resolved pain, improved color, and palpable pulses following surgery. He had moderate oozing from the fasciotomy sites over the first night following surgery but by the following day oozing was minimal. He remained hemodynamically stable throughout and his hemoglobin was stable. His kidney function, potassium, CK remained stable throughout. Patient did have some postoperative difficulty with voiding urine, so tamsulosin was initiated. There is question of embolic versus in situ plaque thrombosis leading to his presentation. An echocardiogram was obtained postoperatively which revealed estimated EF 55%, mildly enlarged left atrium, and trivial mitral valve insufficiency. A 30-day cardiac event monitor was ordered on an outpatient basis to be mailed to patient for application. Patient will be discharged on Xarelto 20 mg. On day of discharge, patient was ambulating well, voiding without difficulty, tolerating full diet, without any bleeding complications at full anticoagu lation, incision site pain well managed. He denied any shortness of breath, chest pain, new or worsening left lower extremity pain. He felt safe for discharge to his own home under his own care with his 's assistance. He is medically stable for discharge. He will follow-up in our office in 2 weeks to have half of his carli removed. Physical Exam Const alert, oriented x3 and no apparent distress General Appearance: cooperative and comfortable HEENT normocephalic, head/scalp atraumatic, hearing grossly normal bilaterally, external ears normal and external nose normal Eyes EOMs intact bilaterally General Eye: normal appearance of both eyes Resp normal respiratory effort, normal air movement, no retractions and no use of accessory muscles Effort and Inspection: able to speak in complete sentences; Negative for stridor or audible wheezes Cardio regular rate and regular rhythm Peripheral Pulses: brachial pulses present and radial pulses present Extremity Extremity Narrative: LLE warm and pink, no pallor or mottling. Palpable DP/PT pulses, normal capillary refill. L groin incision site with Provena vacuum dressing C/D/I, well-sealed. L lower leg fasciotomy incisions with no oozing today, carli intact without significant tension on skin edges, mild swelling. No significant TTP. Neuro oriented x3, CN's II-XII intact bilaterally, moves all extremities, no focal motor deficits and no sensory deficits noted Speech: speech normal Psych mental status grossly normal, thought process normal, cooperative, affect normal, speech normal and activity/motor behavior normal Weight / BMI Weight Weight: 242 lb 8.136 oz Body Mass Index (BMI) 32.0 ABG / Lab / Microbiology Data Result Diagrams: 06/19/22 08:20 06/18/22 05:55 Laboratory: Laboratory Results - last 24 hr 06/18/22 16:11: POC Glucose 308 H 06/18/22 21:22: POC Glucose 169 H 06/19/22 06:35: POC Glucose 142 H 06/19/22 08:20: WBC 11.4 H, RBC 4.07 L, Hgb 12.2 L, Hct 37.0 L, MCV 90.9, MCH 30.0, MCHC 33.0, RDW Std Deviation 52.1 H, RDW Coeff of [place] 15.8 H, Plt Count 119 L, MPV 12.0, Immature Gran % (Auto) 0.800, Neut % (Auto) 76.9 H, Lymph % (Auto) 13.6 L, [place] % (Auto) 7.0, Eos % (Auto) 1.3, Baso % (Auto) 0.4, Absolute Neuts (auto) 8.7 H, Absolute Lymphs (auto) 1.55, Nucleated RBC % 0 06/19/22 08:20: PT 14.2, INR 1.1, APTT 33.3 06/19/22 11:07: POC Glucose 173 H D/C Instructions Discharge Diet: No restrictions May shower in (days): 1 Weight Bearing Status: Weight bearing as tolerated Lifting Restricted to (Lbs): 20 Lifting Restrictions: Do not lift greater than 20 pounds for 3 weeks Call your doctor if your incision/area has: Sudden Increased Bleeding, Increased Pain/ Swelling and Foul Smelling Discharge Call your doctor if you observe: Fever of 101 or Higher and Uncontrolled pain Additional Instructions: You may shower tomorrow. Do not submerge incision sites in water. You may remove the left groin Prevena vacuum dressing on Wednesday. Remove as demonstrated, contact our office with any questions/concerns. You may remove this dressing sooner if it is alarming and you are unable to get it to stop. For your left lower leg dressings, continue with dry gauze dressing and CORNELL bandage while it continues to ooze. Changes dressing once daily or more often as needed to keep it clean and dry. Do not lift greater than 20 pounds for 3 weeks. Continue to take Xarelto 20mg once daily as prescribed. We have ordered a 30 day cardiac event monitor as discussed. This will be mailed to your home. Follow-up in our office in 2 weeks to remove carli. Please Follow Up With: Sergei Joshua MD When: 2 weeks Meaningful Use Info Meaningful Use Diagnoses (Choose all that apply): None applicable Discharge Plan Admission Admit Date/Time: 06/16/22 13:52 Primary Reason for Your Visit: thrombosis of left common femoral artery Attending Provider: Sergei Joshua Primary Care Provider: Ellis Fox Discharge Orders/Prescriptions Prescriptions: New tamsulosin 0.4 mg Capsule 0.4 mg PO DAILY@1200 30 Days Qty: 30 0RF Xarelto 20 mg tablet 20 mg PO DAILY Qty: 30 2RF Rx Instructions: must administer with evening meal oxycodone 5 mg capsule 5 mg PO TID PRN (Reason: pain) 3 Days Qty: 9 0RF Continued metformin 500 mg tablet 1,000 mg PO QHS losartan 25 mg tablet 25 mg PO DAILY Qty: 90 3RF nitroglycerin 0.4 mg tablet, sublingual 0.4 mg SUBLINGUAL Q5-15M PRN (Reason: chest pain) Qty: 90 6RF Rx Instructions: until response; do not exceed 3 doses per episode metoprolol tartrate 25 mg tablet 25 mg PO BID Qty: 60 11RF levothyroxine 175 mcg Tablet 175 mcg PO DAILY Novolin 70/30 U-100 Insulin 100 unit/mL (70-30) suspension 32 unit SUBCUT DAILY Novolin 70/30 U-100 Insulin 100 unit/mL (70-30) suspension 40 unit SUBCUT DAILY cholecalciferol (vitamin D3) 25 mcg (1,000 unit) Tablet 25 mcg PO DAILY lutein 20 mg Tablet 20 mg PO DAILY Rx Instructions: give with meal/snack pedi multivit 17-iron fumarate 15 mg iron Tablet,Chewable 1 tab PO DAILY isosorbide mononitrate 60 mg tablet extended release 24 hr 60 mg PO DAILY aspirin 81 MG tablet,chewable 81 mg PO DAILY@0800 ezetimibe [Zetia] 10 mg tablet 10 mg PO DAILY Referrals / Follow Up: Ellis Fox MD [Primary Care Provider] - Disposition Disposition (needs filled in before D/C Order can be placed): Home, Self Care
[2022-06-19 14:47] VITALS: BP 122/65; PULSE 76; RESP 18; TEMP 36.8; O2SAT 94
--- NOTE | 2022-06-19 15:45 | PHA.DC.MC ---
Pharmacy Service has performed discharge medication reconciliation and counseling for this patient. The patient was counseled on the following discharge medications and changes in medications for homegoing were reviewed. 1. XARELTO 2. OXYCODONE 3. FLOMAX The Reason for Use, instructions for use, and potential side effects were reviewed for all new medications. The patient's questions regarding all of their medications were answered. The patient was able to verbally demonstrate an understanding of their discharge medications. Home Medications metformin 500 mg tablet 1,000 mg PO QHS DM 03/19/17 metoprolol tartrate 25 mg tablet 25 mg PO BID HEART/BLOOD PRESSURE #60 tabs 03/29/18 losartan 25 mg tablet 25 mg PO DAILY BP #90 tabs 05/25/18 nitroglycerin 0.4 mg sublingual tablet 0.4 mg sublingual Q5-15M PRN chest pain #90 tabs 05/25/18 aspirin 81 mg chewable tablet 81 mg PO DAILY@0800 HEALTH MAINTENANCE 06/16/22 cholecalciferol (vitamin D3) 25 mcg (1,000 unit) tablet 25 mcg PO DAILY SUPPLEMENT 06/16/22 ezetimibe 10 mg tablet (Zetia) 10 mg PO DAILY DM 06/16/22 insulin human U-100 NPH-regulr 70-30 mix 100 unit/mL subcutaneous susp (Novolin 70/30 U-100 Insulin) 32 unit subcut DAILY DM 06/16/22 insulin human U-100 NPH-regulr 70-30 mix 100 unit/mL subcutaneous susp (Novolin 70/30 U-100 Insulin) 40 unit subcut DAILY DM 06/16/22 isosorbide mononitrate 60 mg tablet,extended release 24 hr 60 mg PO DAILY HEART 06/16/22 levothyroxine 175 mcg tablet 175 mcg PO DAILY THYROID 06/16/22 lutein 20 mg tablet 20 mg PO DAILY SUPPLEMENT 06/16/22 pediatric multivit no.17-ferrous fumarate 15 mg iron chewable tablet 1 tab PO DAILY SUPPLEMENT 06/16/22 oxycodone 5 mg capsule 5 mg PO TID PRN pain 3 days #9 caps 06/19/22 rivaroxaban 20 mg tablet (Xarelto) 20 mg PO DAILY #30 tabs 06/19/22 tamsulosin 0.4 mg capsule 0.4 mg PO DAILY@1200 30 days #30 caps 06/19/22 The patient's discharge medication list was reviewed for discrepancies and discrepancies were resolved.
--- NOTE | 2022-06-20 09:55 | ED.RN ---
[facility] 06/16/22 15:09 [id number]
== END 2022-06-19 17:11 | disposition home or self-care (01) | DRG 254 ==
LOC: ED 13:45 → PCU 13:53
PROVIDERS: Physician Assistant; Admitting Provider Surgery Trauma Surgery; Emergency Provider Emergency Medicine; PCP Family Medicine; Visit Provider Surgery Trauma Surgery
PROC: 04CL0ZZ Extirpation of Matter from Left Femoral Artery, Open Approach (ICD-10-PCS; principal; 2022-06-16 17:15)
DX: I74.3 Embolism and thrombosis of arteries of the lower extremities (principal); E07.9 Disorder of thyroid, unspecified; E11.51 Type 2 diabetes mellitus with diabetic peripheral angiopathy without gangrene; Z79.4 Long term (current) use of insulin; I70.211 Atherosclerosis of native arteries of extremities with intermittent claudication, right leg; E78.5 Hyperlipidemia, unspecified; I10 Essential (primary) hypertension; I25.10 Atherosclerotic heart disease of native coronary artery without angina pectoris; Z95.5 Presence of coronary angioplasty implant and graft; Z87.891 Personal history of nicotine dependence; Z79.02 Long term (current) use of antithrombotics/antiplatelets; Z79.82 Long term (current) use of aspirin; Z79.01 Long term (current) use of anticoagulants
CPT/HCPCS: 36415; 75635; 80048; 80053; 82550; 82962; 84484; 85025; 85610; 85730; 86850; 86900; 86901; 86920; 86922; 88304; 88311; 93005; 93306; 94668; 97110; 97162; 97166; 99284; A4648; J7030; J7120; Q9957; Q9967; A4216; C8929; J2405

== ENCOUNTER 2022-09-16 11:13 | Emergency (ER) | payer OTHER, SELFPAY ==
[2022-09-16 11:15] VITALS: BP 141/89; PULSE 73; RESP 19; TEMP 35.3; O2SAT 94; BMI 33.0
--- NOTE | 2022-09-16 11:38 | EKG12_ITS ---
Test Reason : SOB Blood Pressure : / mmHG Vent. Rate : 054 BPM Atrial Rate : 054 BPM P-R Int : 268 ms QRS Dur : 146 ms QT Int : 504 ms P-R-T Axes : 043 -59 062 degrees QTc Int : 477 ms Sinus bradycardia with 1st degree A-V block with frequent Premature ventricular complexes in a patter n of bigeminy Right bundle branch block Left anterior fascicular block Bifascicular block Inferior infarct , age undetermined Abnormal ECG Confirmed by FABIOLA WILLETT, EDWIN ([id number]), order editor CHANNING LLOYD ([id number]) on 09/17/2022 10:39:23 AM Referred By: Confirmed By:EDWIN HICKS MD
[2022-09-16 11:54] LABS: Absolute Lymphocyte Count 1.53 X10^3/uL (0.83-4.51); Absolute Neutrophil Count 4.7 X10^3/uL (2.0-7.7); Basophil# 0.06 X10^3/uL; Basophil% 0.8 % (0-1); Eosinophil# 0.25 X10^3/uL; Eosinophils% 3.4 % (0-5); Hematocrit 44.1 % (40-54); Hemoglobin 14.4 g/dL (13.0-16.5); Lymphocyte # 1.53 X10^3/ul (0.83-4.51); Lymphocyte % 20.8 % (19-41); Mean Corp Hgb Conc 32.7 g/dL (32-36); Mean Corpuscular Hgb 29.4 pg (27.0-32.0); Mean Platelet Vol. 12.2 fl (6.2-12.0); Monocyte# 0.77 X10^3/uL; Monocyte% 10.4 % (0-10); NRBC Flagged by Analyzer 0 % (0-5); Neutrophil # 4.73 X10^3/uL (2.7-7.7); Neutrophil % 64.2 % (47-70); Platelet Count 158 K/mm3 (150-450); RBC Distribution Width CV 15.5 % (11.6-14.6); RBC Distribution Width SD 51.1 fl (35.1-43.9); White Blood Count 7.4 K/mm3 (4.4-11.0)
--- NOTE | 2022-09-16 12:01 | RAD_ITS ---
STUDY: X-RAY CHEST REASON FOR EXAM: Male, 72 years old. Two-week history of shortness of breath. Abnormal EKG. Bradycardia. TECHNIQUE: PA and lateral views of the chest. COMPARISON: Comparison is made with prior study February 08, 2018. FINDINGS: EKG electrodes are seen. Mild degree of vascular congestion and CHF. There is no demonstrated pleural abnormality. Sternal cerclage wires and vascular clips are present from a prior sternotomy and coronary artery bypass graft procedure (CABG). Cardiomegaly. Normal mediastinum and nasrin. Normal visualized pulmonary arteries. There is atherosclerotic calcification of the aortic arch with tortuosity. There is demineralization of the osseous structures. Normal visualized ribs, clavicles, and shoulders. There is no demonstrated abnormality of the visualized soft tissue structures of the upper abdomen. RAD/Chest PA and Lateral IMPRESSION: Cardiomegaly. Mild degree of vascular congestion and CHF. Electronically Signed: Jesus Alberto Blair MD at 12:15 EDT ,
[2022-09-16 12:02] LABS: International Normalized Ratio 1.5; Prothrombin Time (Protime)PT. 18.1 SECONDS (11.7-14.9)
[2022-09-16 12:03] LABS: Partial Thromboplast Time 38.3 Seconds (24.1-36.2)
[2022-09-16 12:16] LABS: Anion Gap 4 (5-15); BUN 35 mg/dL (7-18); BUN/Creat Ratio 22.9 RATIO (10-20); Calcium,Total 9.2 mg/dL (8.5-10.1); Chloride 111 mmol/L (98-107); Creatinine, Serum 1.53 mg/dL (0.70-1.30); EST Glomerular Filtration Rate 48 mL/min (>60); Est Glom Filt Rate - Afr Amer 58 mL/min (>60); Estimated Creatinine Clearance 49.32 ml/min; Glucose 106 mg/dL (74-106); Magnesium 2.1 mg/dL (1.6-2.6); Potassium 5.1 mmol/L (3.5-5.1); Sodium Level 140 mmol/L (136-145); Troponin-I HS 35 pg/mL (3.0-78.0)
--- NOTE | 2022-09-16 12:35 | ED.VIS.DYS ---
HPI History of Present Illness Chief Complaint: Shortness of Breath Informant: patient Narrative Narrative: Patient sent over from urgent care for evaluation concerns for abnormal EKG. Patient reports went there for worsening cough for 2 weeks with dyspnea. He denies COPD history. Remote tobacco years ago. Denies asthma history denies wheeze. Reports exertional dyspnea however no chest tightness. He is status post three-vessel CABG in 2017, subsequent to stenting the following year. [facility] He is on metoprolol. Heart rate runs low in the 50s on this. He states he has PVCs. He does not feel them. Since his surgery 2018 has had intermittent chest pain. None worsening. Nonbloody stools. He is status post left lower extremity DVT with thrombectomy this past May. He is on Xarelto. He denies missed doses. He states occasional productive sputum. No fevers. No chills. No myalgias. EKG reviewed from urgent care copied sinus with right bundle branch block with bigeminal PVCs. No signs of complete heart block. First-degree heart block. [facility] Medical History (Updated 09/16/22 @ 13:[address] Andrea Matias, DO) Atherosclerosis of [place] coronary artery of [place] heart without angina pectoris Diabetes mellitus Essential (primary) hypertension History of left heart catheterization History of non-ST elevation myocardial infarction (NSTEMI) Hyperlipidemia Thyroid disorder Home Medications metformin 500 mg tablet 1,000 mg PO QHS DM 03/19/17 [History Last Taken 06/15/22] metoprolol tartrate 25 mg tablet 25 mg PO BID HEART/BLOOD PRESSURE #60 tabs 03/29/18 [Rx Last Taken 06/16/22] losartan 25 mg tablet 25 mg PO DAILY BP #90 tabs 05/25/18 [Rx Last Taken 06/16/22] nitroglycerin 0.4 mg sublingual tablet 0.4 mg sublingual Q5-15M PRN chest pain #90 tabs 05/25/18 [Rx Last Taken Unknown] aspirin 81 mg chewable tablet 81 mg PO DAILY@0800 HEALTH MAINTENANCE 06/16/22 [History Last Taken 06/16/22] cholecalciferol (vitamin D3) 25 mcg (1,000 unit) tablet 25 mcg PO DAILY SUPPLEMENT 06/16/22 [History Last Taken 06/16/22] ezetimibe 10 mg tablet (Zetia) 10 mg PO DAILY DM 06/16/22 [History Last Taken 06/16/22] insulin human U-100 NPH-regulr 70-30 mix 100 unit/mL subcutaneous susp (Novolin 70/30 U-100 Insulin) 32 unit subcut DAILY DM 06/16/22 [History Last Taken 06/15/22] insulin human U-100 NPH-regulr 70-30 mix 100 unit/mL subcutaneous susp (Novolin 70/30 U-100 Insulin) 40 unit subcut DAILY DM 06/16/22 [History Last Taken 06/16/22] isosorbide mononitrate 60 mg tablet,extended release 24 hr 60 mg PO DAILY HEART 06/16/22 [History Last Taken 06/16/22] lutein 20 mg tablet 20 mg PO DAILY SUPPLEMENT 06/16/22 [History Last Taken 06/16/22] pediatric multivit no.17-ferrous fumarate 15 mg iron chewable tablet 1 tab PO DAILY SUPPLEMENT 06/16/22 [History Last Taken 06/16/22] oxycodone 5 mg capsule 5 mg PO TID PRN pain 3 days #9 caps 06/19/22 [Rx Last Taken Unknown] rivaroxaban 20 mg tablet (Xarelto) 20 mg PO DAILY #30 tabs 06/19/22 [Rx Last Taken Unknown] tamsulosin 0.4 mg capsule 0.4 mg PO DAILY@1200 30 days #30 caps 06/19/22 [Rx Last Taken Unknown] levothyroxine 175 mcg tablet 200 mcg PO DAILY THYROID 07/02/22 [History Last Taken Unknown] furosemide 20 mg tablet (Lasix) 20 mg PO DAILY #5 tabs 09/16/22 [Rx Last Taken Unknown] Allergy/AdvReac Type Severity Reaction Status Date / Time atorvastatin [From Lipitor] AdvReac Severe mylagia Verified 08/05/22 09:19 lanolin AdvReac Severe Rash Verified 08/05/22 09:19 Family History Sister CAD (coronary artery disease) Diabetes Brother CAD (coronary artery disease) Surgical History History of coronary artery bypass surgery (~01/21/17) Hx of CABG (~01/21/17) S/P coronary artery stent placement (~04/05/18) Social History household members: spouse Smoking Status: Former smoker how long ago did patient quit smokin alcohol intake: never substance use type: does not use caffeine: Yes Type: coffee Number of servings: 3 what type of physical activity do you participate in: none seatbelt use: always do you feel safe at home: Yes ROS ROS ED Constitutional Constitutional ED: Denies chills, fever(s) or sweats Eyes Eyes: Denies change in vision ENT ENT ED: Denies dysphagia or sore throat Cardiovascular Cardiovascular: Reports chest pain; Denies leg edema, palpitations or racing heartbeat Respiratory/Chest Respiratory/Chest: Reports cough, dyspnea and dyspnea on exertion Gastrointestinal Gastrointestinal: Denies abdominal pain, diarrhea, nausea or vomiting Genitourinary Genitourinary ED: Denies dysuria, hematuria or urinary frequency Musculoskeletal Musculoskeletal: Denies back pain, extremity pain or neck pain Integumentary Denies rash or wounds Neurologic Neurologic: Denies headache(s), paresthesias or weakness EXAM Physical Exam Const Vital Signs: 09/16/22 11:15 09/16/22 11:47 09/16/22 13:18 Temperature 95.6 F L Temperature Source Temporal Pulse Rate 73 72 Respiratory Rate 19 H 20 H Respiratory Effort Normal Non-Labored Blood Pressure 141/89 H Blood Pressure Mean 106 Pulse Ox 94 92 Oxygen Delivery Method Room Air Room Air Positive well nourished and well developed General Appearance ED: well developed and NAD HEENT Reports moist mucous membranes normocephalic and atraumatic Eyes PERRL, EOMs intact bilaterally and conjunctivae normal General Eye ED: Yes normal appearance of both eyes Neck no lymphadenopathy and supple General: Negative for tenderness Chest Wall Chest: Negative for tenderness Resp normal respiratory effort and normal air movement Effort and Inspection: symmetric chest movement; Negative for respiratory distress Cardio regular rate, regular rhythm and no murmurs Peripheral Pulses: pulses 2+ throughout GI normal to inspection, nondistended, normoactive bowel sounds and non-tender Palpation: Negative for guarding or rebound tenderness present Back/Spine no CVA tenderness and no thoracic nor lumbar tenderness Extremity normal to inspection Extremity Narrative: Minimal lower extremity edema. General Extremety ED: Yes edema; Negative for tenderness General Extremity: edema Neuro oriented x3, CN's II-XII intact bilaterally and no sensory deficits noted Sensorium / Orientation: awake and alert Skin no rashes or lesions noted and no wounds MDM MDM MDM Narrative Medical decision making narrative: Interventions / MDM: Differential diagnosis: Pneumonia, bronchitis, CHF, Diagnosis considered but do not suspect: Pulmonary embolism however he is on anticoagulants with no missed doses. ACS however EKG with no acute findings normal troponin. My EKG interpretation: Sinus rate of [address] changes. Right bundle branch block. Bimodal T waves in anterior lateral leads. First-degree AV block. Left anterior fascicular block. Similar EKG from May 2022. Imaging independently reviewed and interpreted by myself: Chest x-ray no infiltrate mild vascular congestion. External documents reviewed: N/A Test considered but not ordered:N/A ED course: Patient vital stable EKGs chronic findings baseline bradycardia from his history. No acute distress. He is on Xarelto with no missed doses lower concerns for PE. Work-up initiated chest x-ray mild breast congestion cardiac work-up negative. Stable creatinine 1.53. Re-evaluation: stable. He is ambulated pulse ox 92% no respiratory distress. Denies any specific orthopnea however his exertional dyspnea with leg swelling, will start Lasix for 5 days. He will follow-up with his PCP at the [place] repeat labs and an echocardiogram as an outpatient. Return precautions. All questions were answered. Disposition discussed with patient/family/significant other: Patient and significant other Case discussed with consulting clinician: N/A This note was generated with [employer] dictation software. It may contain incorrect words, spelling, and punctuation that were not noted in checking the note before signing. Lab Data Labs: Laboratory Results - last 24 hr 09/16/22 11:45 WBC 7.4 RBC 4.90 Hgb 14.4 Hct 44.1 MCV 90.0 MCH 29.4 MCHC 32.7 RDW Std Deviation 51.1 H RDW Coeff of [place] 15.5 H Plt Count 158 MPV 12.2 H Immature Gran % (Auto) 0.400 Neut % (Auto) 64.2 Lymph % (Auto) 20.8 [place] % (Auto) 10.4 H Eos % (Auto) 3.4 Baso % (Auto) 0.8 Absolute Neuts (auto) 4.7 Absolute Lymphs (auto) 1.53 Nucleated RBC % 0 PT 18.1 H INR 1.5 APTT 38.3 H Sodium 140 Potassium 5.1 Chloride 111 H Carbon Dioxide 25.0 Anion Gap 4 L BUN 35 H Creatinine 1.53 H Estim Creat Clear Calc 49.32 Est GFR (MDRD) Af Amer 58 L Est GFR (MDRD) Non-Af 48 L BUN/Creatinine Ratio 22.9 H Glucose 106 Calcium 9.2 Magnesium 2.1 Troponin I High Sens 35 Radiography Diagnostic Testing: Clinical Impression(s) from Imaging Studies Chest X-Ray 09/16/22 12:01 IMPRESSION: Cardiomegaly. Mild degree of vascular congestion and CHF. Electronically Signed: Jesus Alberto Blair MD at 12:15 EDT , Discharge Plan Triage Chief Complaint: Shortness of Breath ED Provider: Andrea Matias Dx/Rx/DC Orders Clinical Impression: Leg edema, Acute dyspnea, CHF (congestive heart failure), CKD (chronic kidney disease) Instructions: CKD Dc, ED Heart Failure, Congestive (CHF) Prescriptions: New furosemide [Lasix] 20 mg tablet 20 mg PO DAILY Qty: 5 0RF No Action metformin 500 mg tablet 1,000 mg PO QHS losartan 25 mg tablet 25 mg PO DAILY Qty: 90 3RF nitroglycerin 0.4 mg tablet, sublingual 0.4 mg SUBLINGUAL Q5-15M PRN (Reason: chest pain) Qty: 90 6RF Rx Instructions: until response; do not exceed 3 doses per episode metoprolol tartrate 25 mg tablet 25 mg PO BID Qty: 60 11RF Novolin 70/30 U-100 Insulin 100 unit/mL (70-30) suspension 32 unit SUBCUT DAILY Novolin 70/30 U-100 Insulin 100 unit/mL (70-30) suspension 40 unit SUBCUT DAILY cholecalciferol (vitamin D3) 25 mcg (1,000 unit) Tablet 25 mcg PO DAILY lutein 20 mg Tablet 20 mg PO DAILY Rx Instructions: give with meal/snack pedi multivit 17-iron fumarate 15 mg iron Tablet,Chewable 1 tab PO DAILY isosorbide mononitrate 60 mg tablet extended release 24 hr 60 mg PO DAILY aspirin 81 MG tablet,chewable 81 mg PO DAILY@0800 ezetimibe [Zetia] 10 mg tablet 10 mg PO DAILY tamsulosin 0.4 mg Capsule 0.4 mg PO DAILY@1200 30 Days Qty: 30 0RF Xarelto 20 mg tablet 20 mg PO DAILY Qty: 30 2RF Rx Instructions: must administer with evening meal oxycodone 5 mg capsule 5 mg PO TID PRN (Reason: pain) 3 Days Qty: 9 0RF levothyroxine 175 mcg tablet 200 mcg PO DAILY Primary Care Provider: [facility] Referrals: [facility] [Primary Care Provider] - 1 Week Activity Restrictions/Additional Instructions: Cardiac work-up was negative. Creatinine 1.5 stable from your previous labs. Chest x-ray with mild vascular congestion and mild leg swelling. Take Lasix as prescribed. Follow-up with your doctors at [place] for potential echocardiogram for further evaluation. Return if worsening symptoms. Disposition Disposition: Home, Self Care
[2022-09-16 13:18] VITALS: PULSE 72; RESP 20; O2SAT 92
[2022-09-16 13:45] VITALS: PULSE 74; O2SAT 92
[2022-09-16] MEDS: Furosemide 20 MG Tablet PO (13:52)
== END 2022-09-16 13:53 | disposition home or self-care (01) ==
PROVIDERS: Emergency Provider Emergency Medicine; Visit Provider Emergency Medicine
DX: I13.0 Hypertensive heart and chronic kidney disease with heart failure and stage 1 through stage 4 chronic kidney disease, or unspecified chronic kidney disease (principal); I50.9 Heart failure, unspecified; E11.22 Type 2 diabetes mellitus with diabetic chronic kidney disease; Z79.4 Long term (current) use of insulin; E78.5 Hyperlipidemia, unspecified; N18.9 Chronic kidney disease, unspecified; I25.10 Atherosclerotic heart disease of native coronary artery without angina pectoris; Z87.891 Personal history of nicotine dependence; Z95.1 Presence of aortocoronary bypass graft; Z86.718 Personal history of other venous thrombosis and embolism; Z79.01 Long term (current) use of anticoagulants; R06.00 Dyspnea, unspecified; R60.9 Edema, unspecified; I25.2 Old myocardial infarction; I5A Non-ischemic myocardial injury (non-traumatic); Z79.84 Long term (current) use of oral hypoglycemic drugs; Z79.899 Other long term (current) drug therapy; Z79.82 Long term (current) use of aspirin; E07.9 Disorder of thyroid, unspecified; Z95.5 Presence of coronary angioplasty implant and graft
CPT/HCPCS: 71046; 80048; 83735; 84484; 85025; 85610; 85730; 93005; 99285

== ENCOUNTER 2022-10-27 19:19 | Inpatient (IN) | payer OTHER, SELFPAY ==
[2022-10-27] VITALS (38 sets, daily range): BP systolic 111–173; BP diastolic 53–117; PULSE 38–64; RESP 10–25; TEMP 36.3; O2SAT 90–96; BMI 33.0
--- NOTE | 2022-10-27 20:02 | EKG12_ITS ---
Test Reason : SOB Blood Pressure : / mmHG Vent. Rate : 047 BPM Atrial Rate : 220 BPM P-R Int : 000 ms QRS Dur : 184 ms QT Int : 554 ms P-R-T Axes : 000 -88 111 degrees QTc Int : 490 ms Atrial flutter with variable A-V block with premature ventricular or aberrantly conducted complexes a nd with ventricular escape complexes Left axis deviation Right bundle branch block Inferior infarct (cited on or before 16-JUN-2022) T wave abnormality, consider lateral ischemia Abnormal ECG Confirmed by JOHN WILLETT, MOE ([id number]), technical editor LANDON GARCIA ([id number]) on 11/02/2022 9:12:00 AM Referred By: PATTI Confirmed By:SHAHBAZ LOPEZ MD
--- NOTE | 2022-10-27 20:15 | RAD_ITS ---
STUDY: X-RAY CHEST REASON FOR EXAM: Male, 72 years old. Pain TECHNIQUE: Single frontal view of the chest. COMPARISON: September 16, 2022 FINDINGS: Sternotomy wires. The lungs are clear and expanded. Small left effusion. Cardiomegaly. Normal mediastinum and nasrin. Normal visualized pulmonary arteries. Normal visualized aortic arch and descending thoracic aorta. Normal visualized thoracic spine. Normal visualized ribs, clavicles, and shoulders. There is no demonstrated abnormality of the visualized soft tissue structures of the upper abdomen. RAD/Chest 1 View (Portable) IMPRESSION: Small left effusion Electronically Signed: Romie Briscoe MD at 22:02 EDT ,
[2022-10-27] MEDS: Ipratropium/Albuterol Sulfate 3 ML AMPUL.NEB INHALATION (20:17)
[2022-10-27 20:18] LABS: Absolute Lymphocyte Count 1.84 X10^3/uL (0.83-4.51); Absolute Neutrophil Count 4.6 X10^3/uL (2.0-7.7); Basophil# 0.06 X10^3/uL; Basophil% 0.8 % (0-1); Eosinophil# 0.23 X10^3/uL; Eosinophils% 3.2 % (0-5); Hematocrit 46.2 % (40-54); Hemoglobin 14.5 g/dL (13.0-16.5); Lymphocyte # 1.84 X10^3/ul (0.83-4.51); Lymphocyte % 25.4 % (19-41); Mean Corp Hgb Conc 31.4 g/dL (32-36); Mean Corpuscular Hgb 28.5 pg (27.0-32.0); Mean Corpuscular Volume 90.8 fL (80-94); Monocyte# 0.51 X10^3/uL; NRBC Flagged by Analyzer 0 % (0-5); Neutrophil # 4.58 X10^3/uL (2.7-7.7); Neutrophil % 63.2 % (47-70); Platelet Count 134 K/mm3 (150-450); RBC Distribution Width CV 15.9 % (11.6-14.6); RBC Distribution Width SD 51.9 fl (35.1-43.9); Red Blood Count 5.09 M/mm3 (4.6-6.2); White Blood Count 7.3 K/mm3 (4.4-11.0)
[2022-10-27 20:41] LABS: ALB/GLOB Ratio 0.7 RATIO (0.9-2.4); AST(SGOT) 17 U/L (15-37); Alanine Aminotransfer ALT/SGPT 24 U/L (16-61); Albumin, Serum 3.1 g/dL (3.2-5.0); Alkaline Phosphatase 57 U/L (45-117); Anion Gap 6 (5-15); BUN 31 mg/dL (7-18); BUN/Creat Ratio 19.3 RATIO (10-20); Calcium,Total 8.8 mg/dL (8.5-10.1); Chloride 113 mmol/L (98-107); Creatinine, Serum 1.61 mg/dL (0.70-1.30); D-Dimer Quantitative (DVT/PE) 2.08 FEU/ug/m (0.27-0.49); EST Glomerular Filtration Rate 45 mL/min (>60); Est Glom Filt Rate - Afr Amer 55 mL/min (>60); Estimated Creatinine Clearance 46.87 ml/min; Globulin 4.4 g/dL (2.2-4.2); Glucose 89 mg/dL (74-106); Magnesium 2.2 mg/dL (1.6-2.6); Potassium 4.1 mmol/L (3.5-5.1); Protein, Total 7.5 g/dL (6.4-8.2); Sodium Level 142 mmol/L (136-145); Thyroid Stim Hormone (TSH) 1.66 uIU/mL (0.358-3.74); Troponin-I HS (w/2H Reflex) 62 pg/mL (3.0-78.0)
--- NOTE | 2022-10-27 20:44 | CT_ITS ---
STUDY: CTA CHEST REASON FOR EXAM: Male, 72 years old. Elevated D-dimer RADIATION DOSAGE (If Supplied By Facility): CTDIvol = ( 13.79 ) mGy, DLP = ( 581.98 ) mGycm TECHNIQUE: The examination was performed with the intravenous administration of IV 100mL Isovue-370. Post-processing of the angiographic images was performed, with multiplanar reformation and 3D reconstruction. Individualized dose optimization techniques were used for this CT. COMPARISON: Chest x-ray today FINDINGS: Normal enhancement of the main pulmonary artery and right and left pulmonary arteries. Normal enhancement of the bilateral peripheral pulmonary arteries. There is no demonstrated pulmonary embolism. Normal thoracic aorta and visualized great vessels. There is no demonstrated aortic dissection. Cardiomegaly and calcific coronary artery disease. Borderline nonspecific mediastinal lymph nodes. Small bilateral perihilar lymph nodes. Normal visualized trachea and bronchi. The lungs are well expanded. Centrilobular and paraseptal emphysema. Small right greater than left pleural effusions. Ununited sternotomy. Mild kyphoscoliosis. Normal visualized upper abdomen. CT/CTA Chest W/WO Contrast IMPRESSION: Small bilateral pleural effusions. Cardiomegaly and coronary artery disease. COPD. Ununited sternotomy. Otherwise no acute disease. Electronically Signed: Romie Briscoe MD at 23:21 EDT ,
[2022-10-27] MEDS: 0.9% Normal Saline 1,000 ML 1000 ML IV (20:48)
[2022-10-27 22:11] LABS: Reflex Troponin-HS? (from REC) Y
--- NOTE | 2022-10-27 22:19 | EX.ED.DYSGE1 ---
HPI History of Present Illness Chief Complaint: Shortness of Breath Informant: patient Onset/Context/Timing Onset: Days (4) Context: Sudden Onset Timing: Continuous Quality: Lightheaded, fatigue Location: Generalized Worsened by: Nothing Relieved by: Nothing Narrative Narrative: Patient presents with dizziness and near syncope episodes began 3 days ago. Patient states that this began rather suddenly. Patient states it has been constant For days. Patient states he feels lightheaded and fatigued. Patient states this is generalized. Patient states nothing makes it better and nothing makes it worse. Patient admits to a mild cough denies any sputum production. Patient denies any shortness of breath. Patient denies any chest pain. Patient states he noticed that his heart rate slow but he is on metoprolol. Patient denies any fevers or chills. [facility] Medical History (Updated 10/27/22 @ 23:[address] Isabella Chappell MD) Atherosclerosis of [place] coronary artery of [place] heart without angina pectoris Atrial flutter Diabetes mellitus Essential (primary) hypertension History of non-ST elevation myocardial infarction (NSTEMI) Hyperlipidemia Hypothyroidism Ischemic stroke Obesity Thrombosis of left common femoral artery Home Medications metformin 500 mg tablet 1,000 mg PO QHS DM 03/19/17 [History Last Taken 10/27/22 18:30] metoprolol tartrate 25 mg tablet 25 mg PO BID HEART/BLOOD PRESSURE #60 tabs 03/29/18 [Rx Last Taken 10/27/22 20:56] losartan 25 mg tablet 25 mg PO DAILY BP #90 tabs 05/25/18 [Rx Last Taken 10/27/22 18:30] nitroglycerin 0.4 mg sublingual tablet 0.4 mg sublingual Q5-15M PRN chest pain #90 tabs 05/25/18 [Rx Last Taken Unknown] aspirin 81 mg chewable tablet 81 mg PO DAILY@0800 HEALTH MAINTENANCE 06/16/22 [History Last Taken 10/27/22 08:00] ezetimibe 10 mg tablet (Zetia) 10 mg PO DAILY DM 06/16/22 [History Last Taken 10/27/22 08:00] insulin human U-100 NPH-regulr 70-30 mix 100 unit/mL subcutaneous susp (Novolin 70/30 U-100 Insulin) 32 unit subcut DAILY DM 06/16/22 [History Last Taken 06/15/22] insulin human U-100 NPH-regulr 70-30 mix 100 unit/mL subcutaneous susp (Novolin 70/30 U-100 Insulin) 40 unit subcut DAILY DM 06/16/22 [History Last Taken 06/16/22] isosorbide mononitrate 60 mg tablet,extended release 24 hr 60 mg PO DAILY HEART 06/16/22 [History Last Taken 10/27/22 08:00] pediatric multivit no.17-ferrous fumarate 15 mg iron chewable tablet 1 tab PO DAILY SUPPLEMENT 06/16/22 [History Last Taken 06/16/22] rivaroxaban 20 mg tablet (Xarelto) 20 mg PO DAILY #30 tabs 06/19/22 [Rx Last Taken 10/27/22 18:30] tamsulosin 0.4 mg capsule 0.4 mg PO DAILY@1200 30 days #30 caps 06/19/22 [Rx Last Taken 10/27/22 18:30] levothyroxine 175 mcg tablet 200 mcg PO DAILY THYROID 07/02/22 [History Last Taken 10/27/22 20:55] empagliflozin 25 mg tablet See Rx Instructions PO DAILY 10/27/22 [History Last Taken 10/27/22 08:00] Allergy/AdvReac Type Severity Reaction Status Date / Time atorvastatin [From Lipitor] AdvReac Severe mylagia Verified 10/27/22 19:28 lanolin AdvReac Severe Rash Verified 10/27/22 19:28 Family History Sister CAD (coronary artery disease) Diabetes Brother CAD (coronary artery disease) Surgical History (Updated 10/27/22 @ 23:[address] Isabella Chappell MD) History of coronary artery bypass surgery (~01/21/17) S/P coronary artery stent placement (~04/05/18) Social History household members: spouse Smoking Status: Former smoker how long ago did patient quit smokin alcohol intake: never substance use type: does not use caffeine: Yes Type: coffee Number of servings: 3 what type of physical activity do you participate in: none seatbelt use: always do you feel safe at home: Yes ROS ROS ED Constitutional Constitutional ED: Denies chills or fever(s) Eyes Eyes: Denies blurry vision or change in vision ENT ENT ED: Denies rhinorrhea or sore throat Cardiovascular Cardiovascular: Denies chest pain or palpitations Respiratory/Chest Respiratory/Chest: Reports cough; Denies dyspnea Gastrointestinal Gastrointestinal: Denies nausea or vomiting Genitourinary Genitourinary ED: Denies dysuria or hematuria Musculoskeletal Musculoskeletal: Denies back pain or neck pain Integumentary Denies abscess or rash Neurologic Neurologic: Denies headache(s) or weakness Allergic/Immunologic Allergic/Immunologic ED: Denies mouth swelling or urticaria EXAM Physical Exam Const Vital Signs: 10/27/22 19:20 10/27/22 19:45 10/27/22 19:54 Temperature 97.4 F L Temperature Source Temporal Pulse Rate 61 49 L 46 L Respiratory Rate 16 15 17 Respiratory Effort Blood Pressure 173/88 H 142/64 H Blood Pressure Mean 116 90 Pulse Ox 93 90 96 Oxygen Delivery Method Room Air Room Air Nasal Cannula Oxygen Flow Rate (L/min) 2 10/27/22 19:55 10/27/22 20:02 10/27/22 20:10 Temperature Temperature Source Pulse Rate 39 L 38 L Respiratory Rate 15 16 Respiratory Effort Short of Breath Blood Pressure 125/101 H Blood Pressure Mean 109 Pulse Ox 94 93 Oxygen Delivery Method Oxygen Flow Rate (L/min) 2 2 10/27/22 20:17 10/27/22 20:15 10/27/22 20:20 Temperature Temperature Source Pulse Rate 46 L 42 L 39 L Respiratory Rate 17 21 H 14 Respiratory Effort Blood Pressure 117/74 Blood Pressure Mean 85 Pulse Ox 94 94 Oxygen Delivery Method Oxygen Flow Rate (L/min) 2 10/27/22 20:30 10/27/22 20:40 10/27/22 20:45 Temperature Temperature Source Pulse Rate 42 L 47 L 51 L Respiratory Rate 17 17 12 Respiratory Effort Blood Pressure 111/71 115/89 H Blood Pressure Mean 85 97 Pulse Ox 96 93 93 Oxygen Delivery Method Oxygen Flow Rate (L/min) 2 10/27/22 20:50 10/27/22 21:07 10/27/22 21:00 Temperature Temperature Source Pulse Rate 44 L 41 L Respiratory Rate 25 H 15 Respiratory Effort Blood Pressure 131/117 H Blood Pressure Mean 123 Pulse Ox 94 95 Oxygen Delivery Method Nasal Cannula Oxygen Flow Rate (L/min) 2 10/27/22 21:12 10/27/22 21:20 10/27/22 21:26 Temperature Temperature Source Pulse Rate 46 L 42 L Respiratory Rate 15 18 Respiratory Effort Blood Pressure 114/53 L Blood Pressure Mean 69 Pulse Ox 93 92 Oxygen Delivery Method Oxygen Flow Rate (L/min) 10/27/22 21:30 10/27/22 21:31 10/27/22 21:40 Temperature Temperature Source Pulse Rate 48 L 52 L 44 L Respiratory Rate 15 17 Respiratory Effort Blood Pressure 140/101 H Blood Pressure Mean 112 Pulse Ox 96 95 96 Oxygen Delivery Method Oxygen Flow Rate (L/min) 10/27/22 21:45 10/27/22 21:50 10/27/22 22:00 Temperature Temperature Source Pulse Rate 43 L 47 L 45 L Respiratory Rate 16 15 14 Respiratory Effort Blood Pressure 145/103 H Blood Pressure Mean 116 Pulse Ox 96 93 91 Oxygen Delivery Method Oxygen Flow Rate (L/min) 10/27/22 22:10 10/27/22 22:15 10/27/22 22:20 Temperature Temperature Source Pulse Rate 47 L 49 L 45 L Respiratory Rate 13 16 20 H Respiratory Effort Blood Pressure 133/90 H Blood Pressure Mean 105 Pulse Ox 92 93 92 Oxygen Delivery Method Oxygen Flow Rate (L/min) 10/27/22 22:30 10/27/22 22:40 10/27/22 22:45 Temperature Temperature Source Pulse Rate 46 L 49 L 49 L Respiratory Rate 18 14 12 Respiratory Effort Blood Pressure 147/91 H 144/111 H Blood Pressure Mean 107 122 Pulse Ox 91 92 94 Oxygen Delivery Method Nasal Cannula Nasal Cannula Oxygen Flow Rate (L/min) 2 2 10/27/22 22:50 10/27/22 23:00 10/28/22 00:08 Temperature 97.3 F L Temperature Source Temporal Pulse Rate 45 L 43 L 46 L Respiratory Rate 19 H 10 L 12 Respiratory Effort Blood Pressure 139/101 H 168/63 H Blood Pressure Mean 114 98 Pulse Ox 92 95 92 Oxygen Delivery Method Nasal Cannula Oxygen Flow Rate (L/min) 2 10/28/22 00:13 Temperature Temperature Source Pulse Rate 59 L Respiratory Rate 13 Respiratory Effort Blood Pressure 168/63 H Blood Pressure Mean Pulse Ox 92 Oxygen Delivery Method Nasal Cannula Oxygen Flow Rate (L/min) 6 Positive well nourished and well developed General Appearance ED: well developed and NAD HEENT Reports moist mucous membranes Neck supple and no JVD Chest Wall inspection of chest normal and palpation of chest normal Resp normal respiratory effort and clear to auscultation bilaterally Cardio Rate: bradycardia Rhythm: abnormal rhythm irregularly irregular GI normal to inspection, nondistended, normoactive bowel sounds and non-tender Palpation: soft Extremity Extremity Narrative: There is mild tenderness over his left calf. There is no edema noted. Neuro oriented x3, CN's II-XII intact bilaterally and no sensory deficits noted Sensorium / Orientation: alert Motor Exam: strength 5/5 throughout Psych mental status grossly normal MDM MDM MDM Narrative Medical decision making narrative: Differential diagnosis includes cardiac dysrhythmia, cardiac ischemia, pulmonary embolism, hypothyroidism, hyperthyroidism, medication side effect, pneumonia, and pneumothorax. EKG will be obtained to assess for cardiac dysrhythmia and cardiac ischemia. Chest x-ray will be obtained to assess for pneumonia and pneumothorax. CBC will be obtained to assess for leukocytosis and anemia. Comprehensive metabolic profile will be obtained to assess for hepatic function, renal function, and electrolyte abnormality. High-sensitivity troponin will be obtained to assess for cardiac ischemia. TSH will be obtained to assess for hypothyroidism and hyperthyroidism. D-dimer will be obtained to assess for pulmonary embolism. Magnesium will be obtained to assess for hypomagnesemia and hypomagnesemia. Lab Data Attestation: I reviewed the patient's lab results. Lab results narrative: CBC was reviewed and was essentially within normal limits. Comprehensive metabolic profile was reviewed. BUN was 31 and creatinine was 1.61. These are consistent with prior results. D-dimer was reviewed and was elevated at 2.08. Initial high-sensitivity troponin was reviewed and was normal at 62. TSH was reviewed and was normal at 1.66. 2-hour repeat high-sensitivity troponin was reviewed and was normal at 60. Labs: Laboratory Results - last 24 hr 10/27/22 10/27/22 19:57 22:16 WBC 7.3 RBC 5.09 Hgb 14.5 Hct 46.2 MCV 90.8 MCH 28.5 MCHC 31.4 L RDW Std Deviation 51.9 H RDW Coeff of [place] 15.9 H Plt Count 134 L MPV 13.0 H Immature Gran % (Auto) 0.400 Neut % (Auto) 63.2 Lymph % (Auto) 25.4 [place] % (Auto) 7.0 Eos % (Auto) 3.2 Baso % (Auto) 0.8 Absolute Neuts (auto) 4.6 Absolute Lymphs (auto) 1.84 Nucleated RBC % 0 D-Dimer Quant (PE/DVT) 2.08 H* Sodium 142 Potassium 4.1 Chloride 113 H Carbon Dioxide 23.0 Anion Gap 6 BUN 31 H Creatinine 1.61 H Estim Creat Clear Calc 46.87 Est GFR (MDRD) Af Amer 55 L Est GFR (MDRD) Non-Af 45 L BUN/Creatinine Ratio 19.3 Glucose 89 Calcium 8.8 Magnesium 2.2 Total Bilirubin 0.60 AST 17 ALT 24 Alkaline Phosphatase 57 Troponin I High Sens 62 60 Total Protein 7.5 Albumin 3.1 L Globulin 4.4 H Albumin/Globulin Ratio 0.7 L TSH 1.66 Radiography Chest X-Ray - ED: 1 View, Read by ED Physician, Read by Radiologist and Left Effusion Diagnostic Testing: Clinical Impression(s) from Imaging Studies Chest X-Ray 10/27/22 20:15 IMPRESSION: Small left effusion Electronically Signed: Romie Briscoe MD at 22:02 EDT Reading Location ID and State: [facility] / [place] , Service support , Chest CTA 10/27/22 20:44 IMPRESSION: Small bilateral pleural effusions. Cardiomegaly and coronary artery disease. COPD. Ununited sternotomy. Otherwise no acute disease. Electronically Signed: Romie Briscoe MD at 23:21 EDT , Portable 1 view chest x-ray was obtained. On my independent interpretation, lung kiser show a small left pleural effusion. There is normal cardiac silhouette. Bony thorax is normal. There is no acute process noted. Radiologist also interpreted the x-ray and agrees. Because of the elevated D-dimer, CTA of the chest was obtained. There is no evidence of pulmonary embolism. There are small bilateral pleural effusions. There is evidence of COPD and coronary artery disease. This was interpreted by the radiologist and was also independently reviewed by myself. EKG Initial EKG: Attestation: I personally reviewed and interpreted this EKG as follows: Interpretation: Atrial Flutter (47) and RBBB Comments: EKG was obtained. On my independent interpretation, shows atrial flutter with variable AV block. There are occasional PVCs noted. QRS interval was prolonged at 184 ms. QTc interval was slightly prolonged at 490 ms. There is left axis deviation at -88. There is a right bundle branch block pattern noted. Prior EKG tracings: available for review Prior: Changed (Compared to previous EKG dated 09/16/2022, the atrial flutter is new. There are no other new changes.) Follow-up EKG: Attestation: I personally reviewed and interpreted this EKG as follows: Interpretation: Sinus Bradycardia (52), RBBB, LAFB and Non-Specific ST Changes Comments: EKG was obtained. On my independent interpretation, there is sinus bradycardia with a first-degree AV block with a rate of 52. HI interval was prolonged at 218 ms. QRS interval is prolonged at 156 ms. QTc interval was 531 ms. There is left axis deviation at -57. There is a right bundle branch block pattern noted. There is a left anterior fascicular block pattern noted. There are nonspecific ST-T wave changes. This was unchanged compared to previous EKG. Prior EKG tracings: available for review Prior: Unchanged Treatment and Re-Evaluation :: Patient was given a DuoNeb aerosol here. Patient was given IV fluids. Patient remained bradycardic and in atrial flutter. Patient's blood pressure remained stable. Patient clinically looks well. Patient was advised of his findings. Case was discussed with the hospitalist. She was in to evaluate the patient. She recommended attempting synchronized cardioversion. I discussed the risks and benefits with the patient. He was given the opportunity ask questions. He had no further questions. Patient was placed on continuous cardiac and pulse oximeter monitors. Patient was given 70 mg of propofol IV. After adequate sedation, the patient was cardioverted with 200 J of synchronized cardioversion. Patient remained in atrial flutter. Patient was then cardioverted with 250 J of synchronized cardioversion. Patient converted to a sinus rhythm. Patient tolerated procedure well. Patient did have some brief episodes of hypoxia that improved with a jaw thrust. Patient felt better after the procedure. Patient will be admitted to the hospital. Patient understands and is agreeable with the plan. All questions were answered. 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
[2022-10-27 22:38] LABS: Troponin-I HS 60 pg/mL (3.0-78.0)
--- NOTE | 2022-10-27 23:31 | NURSING ---
[facility] OR IF THEY WHERE ACCEPTING PATIENTS. HAD TO LEAVE A VM ON THEIR CONFIDENTIAL LINE AND FAXED OVER PATIENTS CHART.
--- NOTE | 2022-10-27 23:38 | PCM.HP.STD ---
HPI - General General Date of Admission: 10/27/22 Date of Service: 10/27/22 Chief Complaint: Dizziness, LH, bradycardia HPI Narrative The patient is a 72 y/o M w/ PMHx: WILLIAN on BIPAP q HS, Former tobacco use, CKD stage III unclear subtype, Obesity, CAD s/p CABG and PCI, HTN, HLD, Diabetes mellitus type II, Hx LLE DVT with thrombectomy, Hx CVA, BPH, Hypothyroidism, PAF/Flutter who presents to the [facility] ED on 10/27/22 with history of ongoing dizziness, near syncope sensation beginning 3 days prior starting rather suddenly ongoing for several days with lightheadedness and fatigue as well as dyspnea with a mild cough with no sputum production with no fevers or chills admitting that his heart rate has been slow and given he not been improving prompting eventual ED evaluation. From review of records and discussion with patient he has had chronic dyspnea issues for several months. He does report that he did at some point wear a Holter monitor but is unsure of results at that time. He believes there may have been discussion for possibly pacemaker status but he cannot tell us who this was discussed with. Workup in the ED included T97.4, heart rate 61, BP 173/88, respiratory rate 16, 92% on room air however patient did have frequent heart rates primarily ranging 38-49 following, most recent BP 139/101, respiratory rate 12, 94% on 2 L nasal cannula, CBC with WBC 7.3, hemoglobin 14.5, platelet 134 without any marked shift, D-dimer 2.08, CMP with chloride 113, BUN/creatinine 31/1.61, magnesium 2.2, TSH 1.66, initial troponin 62 with repeat delta 60, chest x-ray with evidence of a small left pleural effusion, CTPA with small bilateral pleural effusions, cardiomegaly and coronary artery disease with an ununited sternotomy otherwise no acute cardiopulmonary findings, EKG w/ appearance of atrial flutter with a right bundle branch block with occasional PVC. In the ED patient ministered DuoNeb therapy as well as 1 L normal saline. Given his chronic anticoagulated status and confirmed that he does take his medications discussed with ED physician and decision for cardioversion to be performed. Patient was administered propofol and cardioversion attempted with successful cardioversion on the second try with EKG confirmation with sinus bradycardia with first-degree AV block. [facility] Medical History (Updated 10/28/22 @ 00:[address] Isabella Chappell MD) Atherosclerosis of [place] coronary artery of [place] heart without angina pectoris Atrial flutter Diabetes mellitus Essential (primary) hypertension History of non-ST elevation myocardial infarction (NSTEMI) Hyperlipidemia Hypothyroidism Ischemic stroke Obesity WILLIAN treated with BiPAP Thrombosis of left common femoral artery Home Medications metformin 500 mg tablet 1,000 mg PO QHS DM 03/19/17 [History Last Taken 10/27/22 18:30] metoprolol tartrate 25 mg tablet 25 mg PO BID HEART/BLOOD PRESSURE #60 tabs 03/29/18 [Rx Last Taken 10/27/22 20:56] losartan 25 mg tablet 25 mg PO DAILY BP #90 tabs 05/25/18 [Rx Last Taken 10/27/22 18:30] nitroglycerin 0.4 mg sublingual tablet 0.4 mg sublingual Q5-15M PRN chest pain #90 tabs 05/25/18 [Rx Last Taken Unknown] aspirin 81 mg chewable tablet 81 mg PO DAILY@0800 HEALTH MAINTENANCE 06/16/22 [History Last Taken 10/27/22 08:00] ezetimibe 10 mg tablet (Zetia) 10 mg PO DAILY DM 06/16/22 [History Last Taken 10/27/22 08:00] insulin human U-100 NPH-regulr 70-30 mix 100 unit/mL subcutaneous susp (Novolin 70/30 U-100 Insulin) 32 unit subcut DAILY DM 06/16/22 [History Last Taken 06/15/22] insulin human U-100 NPH-regulr 70-30 mix 100 unit/mL subcutaneous susp (Novolin 70/30 U-100 Insulin) 40 unit subcut DAILY DM 06/16/22 [History Last Taken 06/16/22] isosorbide mononitrate 60 mg tablet,extended release 24 hr 60 mg PO DAILY HEART 06/16/22 [History Last Taken 10/27/22 08:00] pediatric multivit no.17-ferrous fumarate 15 mg iron chewable tablet 1 tab PO DAILY SUPPLEMENT 06/16/22 [History Last Taken 06/16/22] rivaroxaban 20 mg tablet (Xarelto) 20 mg PO DAILY #30 tabs 06/19/22 [Rx Last Taken 10/27/22 18:30] tamsulosin 0.4 mg capsule 0.4 mg PO DAILY@1200 30 days #30 caps 06/19/22 [Rx Last Taken 10/27/22 18:30] levothyroxine 175 mcg tablet 200 mcg PO DAILY THYROID 07/02/22 [History Last Taken 10/27/22 20:55] empagliflozin 25 mg tablet See Rx Instructions PO DAILY 10/27/22 [History Last Taken 10/27/22 08:00] Allergy/AdvReac Type Severity Reaction Status Date / Time atorvastatin [From Lipitor] AdvReac Severe mylagia Verified 10/27/22 19:28 lanolin AdvReac Severe Rash Verified 10/27/22 19:28 Family History Sister CAD (coronary artery disease) Diabetes Brother CAD (coronary artery disease) Surgical History History of coronary artery bypass surgery (~01/21/17) S/P coronary artery stent placement (~04/05/18) Social History household members: spouse Smoking Status: Former smoker how long ago did patient quit smokin alcohol intake: never substance use type: does not use caffeine: Yes Type: coffee Number of servings: 3 what type of physical activity do you participate in: none seatbelt use: always do you feel safe at home: Yes ROS ROS Narrative Admission Review of Systems: CONSTITUTIONAL: No weight loss, fever, chills, + weakness or fatigue. HEENT: + Lightheaded, dizziness. Eyes: No visual loss, blurred vision, double vision or yellow sclerae. Ears, Nose, Throat: No hearing loss, sneezing, congestion, runny nose or sore throat. SKIN: No rash or itching, lesions, wounds. CARDIOVASCULAR: + Lightheadedness, dizziness, palpitations, chronic edema. No chest pain, chest pressure or chest discomfort, orthopnea, syncopal events. RESPIRATORY: + Shortness of breath, mild cough without marked sputum. No wheezing, hemoptysis. GASTROINTESTINAL: No anorexia, nausea, vomiting or diarrhea, abdominal pain, melena, BRBPR. GENITOURINARY: No dysuria, frequency, urgency or retention. NEUROLOGICAL: + Lightheadedness, dizziness, near syncopal sensation. No headache, paralysis, ataxia, numbness or tingling in the extremities, focal weakness, change in bowel or bladder control, seizure. MUSCULOSKELETAL: + muscle, back pain, joint pain or stiffness. HEMATOLOGIC: + anemia, bleeding or bruising. LYMPHATICS: No enlarged nodes. No history of splenectomy. PSYCHIATRIC: No history of depression or anxiety. ENDOCRINOLOGIC: No reports of sweating, cold or heat intolerance. No polyuria or polydipsia. ALLERGIES: No history of asthma, hives, eczema or rhinitis. Vital Signs Vital Signs Vital Signs: 10/27/22 19:20 10/27/22 19:45 10/27/22 19:54 Temperature 97.4 F L Temperature Source Temporal Pulse Rate 61 49 L 46 L Respiratory Rate 16 15 17 Respiratory Effort Blood Pressure 173/88 H 142/64 H Blood Pressure Mean 116 90 Pulse Ox 93 90 96 Oxygen Delivery Method Room Air Room Air Nasal Cannula Oxygen Flow Rate (L/min) 2 10/27/22 19:55 10/27/22 20:02 10/27/22 20:10 Temperature Temperature Source Pulse Rate 39 L 38 L Respiratory Rate 15 16 Respiratory Effort Short of Breath Blood Pressure 125/101 H Blood Pressure Mean 109 Pulse Ox 94 93 Oxygen Delivery Method Oxygen Flow Rate (L/min) 2 2 10/27/22 20:17 10/27/22 20:15 10/27/22 20:20 Temperature Temperature Source Pulse Rate 46 L 42 L 39 L Respiratory Rate 17 21 H 14 Respiratory Effort Blood Pressure 117/74 Blood Pressure Mean 85 Pulse Ox 94 94 Oxygen Delivery Method Oxygen Flow Rate (L/min) 2 10/27/22 20:30 10/27/22 20:40 10/27/22 20:45 Temperature Temperature Source Pulse Rate 42 L 47 L 51 L Respiratory Rate 17 17 12 Respiratory Effort Blood Pressure 111/71 115/89 H Blood Pressure Mean 85 97 Pulse Ox 96 93 93 Oxygen Delivery Method Oxygen Flow Rate (L/min) 2 10/27/22 20:50 10/27/22 21:07 10/27/22 21:00 Temperature Temperature Source Pulse Rate 44 L 41 L Respiratory Rate 25 H 15 Respiratory Effort Blood Pressure 131/117 H Blood Pressure Mean 123 Pulse Ox 94 95 Oxygen Delivery Method Nasal Cannula Oxygen Flow Rate (L/min) 2 10/27/22 21:12 10/27/22 21:20 10/27/22 21:26 Temperature Temperature Source Pulse Rate 46 L 42 L Respiratory Rate 15 18 Respiratory Effort Blood Pressure 114/53 L Blood Pressure Mean 69 Pulse Ox 93 92 Oxygen Delivery Method Oxygen Flow Rate (L/min) 10/27/22 21:30 10/27/22 21:31 10/27/22 21:40 Temperature Temperature Source Pulse Rate 48 L 52 L 44 L Respiratory Rate 15 17 Respiratory Effort Blood Pressure 140/101 H Blood Pressure Mean 112 Pulse Ox 96 95 96 Oxygen Delivery Method Oxygen Flow Rate (L/min) 10/27/22 21:45 10/27/22 21:50 10/27/22 22:00 Temperature Temperature Source Pulse Rate 43 L 47 L 45 L Respiratory Rate 16 15 14 Respiratory Effort Blood Pressure 145/103 H Blood Pressure Mean 116 Pulse Ox 96 93 91 Oxygen Delivery Method Oxygen Flow Rate (L/min) 10/27/22 22:10 10/27/22 22:15 10/27/22 22:20 Temperature Temperature Source Pulse Rate 47 L 49 L 45 L Respiratory Rate 13 16 20 H Respiratory Effort Blood Pressure 133/90 H Blood Pressure Mean 105 Pulse Ox 92 93 92 Oxygen Delivery Method Oxygen Flow Rate (L/min) 10/27/22 22:30 10/27/22 22:40 10/27/22 22:45 Temperature Temperature Source Pulse Rate 46 L 49 L 49 L Respiratory Rate 18 14 12 Respiratory Effort Blood Pressure 147/91 H 144/111 H Blood Pressure Mean 107 122 Pulse Ox 91 92 94 Oxygen Delivery Method Nasal Cannula Nasal Cannula Oxygen Flow Rate (L/min) 2 2 10/27/22 22:50 10/27/22 23:00 Temperature Temperature Source Pulse Rate 45 L 43 L Respiratory Rate 19 H 10 L Respiratory Effort Blood Pressure 139/101 H Blood Pressure Mean 114 Pulse Ox 92 95 Oxygen Delivery Method Oxygen Flow Rate (L/min) Weight Weight: 250 lb Body Mass Index (BMI) 33.0 Physical Exam Narrative Physical Examination: General: Awake, alert, oriented x 3 and cooperative, seated upright in the ED bed, fatigued, heart rate on the monitor irregular, rate 30 to 40s. Skin: Normal color, normal turgor, no icterus, no cyanosis except occasional staged ecchymoses, abrasion. HEENT: AT/NC, EOMI, PERRLA, mildly dry MM, no carotid bruits or JVD noted. Lungs: Diminished greater bases, appropriate effort, no rales, ronchi or wheezing. Heart: Irregular, bradycardic; no gallop, rub audible. Abdomen: Soft, obese, NTTP, ND, moderately hyperactive BS, no HSM. Extremities: No cyanosis, no clubbing, mild ankle not markedly pitting edema. Neurological: Patient awake, alert, oriented as noted, cognitive function intact; pupils equally reactive to light and accommodation, cranial nerves II-XII grossly normal, moving all 4 extremities, no focal deficits, strength mildly to moderately global decrease secondary to acute presentation complaints. Psychiatric: Affect appears fatigued, no acute evidence of depressive or anxiety feelings. Results Lab / Micro Data 10/27/22 19:57 10/27/22 19:57 Labs: Laboratory Results - last 24 hr 10/27/22 19:57: WBC 7.3, RBC 5.09, Hgb 14.5, Hct 46.2, MCV 90.8, MCH 28.5, MCHC 31.4 L, RDW Std Deviation 51.9 H, RDW Coeff of [place] 15.9 H, Plt Count 134 L, MPV 13.0 H, Immature Gran % (Auto) 0.400, Neut % (Auto) 63.2, Lymph % (Auto) 25.4, [place] % (Auto) 7.0, Eos % (Auto) 3.2, Baso % (Auto) 0.8, Absolute Neuts (auto) 4.6, Absolute Lymphs (auto) 1.84, Nucleated RBC % 0, D-Dimer Quant (PE/DVT) 2.08 H*, Sodium 142, Potassium 4.1, Chloride 113 H, Carbon Dioxide 23.0, Anion Gap 6, BUN 31 H, Creatinine 1.61 H, Estim Creat Clear Calc 46.87, Est GFR (MDRD) Af Amer 55 L, Est GFR (MDRD) Non-Af 45 L, BUN/Creatinine Ratio 19.3, Glucose 89, Calcium 8.8, Magnesium 2.2, Total Bilirubin 0.60, AST 17, ALT 24, Alkaline Phosphatase 57, Troponin I High Sens 62, Total Protein 7.5, Albumin 3.1 L, Globulin 4.4 H, Albumin/Globulin Ratio 0.7 L, TSH 1.66 10/27/22 22:16: Troponin I High Sens 60 Radiology Impression Chest X-Ray 10/27/22 20:15 IMPRESSION: Small left effusion Electronically Signed: Romie Briscoe MD at 22:02 EDT Reading Location ID and State: [address] [place] [address] , Service support , Chest CTA 10/27/22 20:44 IMPRESSION: Small bilateral pleural effusions. Cardiomegaly and coronary artery disease. COPD. Ununited sternotomy. Otherwise no acute disease. Electronically Signed: Romie Briscoe MD at 23:21 EDT Reading Location ID and State: [facility] / [place] , Service support , Assessment & Plan Assessment/Plan (1) Atrial flutter by electrocardiogram: (2) Bradycardia: PLAN: Plan The patient is a 72 y/o M w/ PMHx: WILLIAN on BIPAP q HS, Former tobacco use, CKD stage III unclear subtype, Obesity, CAD s/p CABG and PCI, HTN, HLD, Diabetes mellitus type II, Hx LLE DVT with thrombectomy, Hx CVA, BPH, Hypothyroidism, PAF/Flutter who presents to the [facility] ED on 10/27/22 with history of ongoing dizziness, near syncope sensation beginning 3 days prior starting rather suddenly ongoing for several days with lightheadedness and fatigue as well as dyspnea with a mild cough with no sputum production with no fevers or chills admitting that his heart rate has been slow and given he not been improving prompting eventual ED evaluation. #1. Lightheadedness, dizziness, near syncope Paroxsymal atrial flutter w/ bradycardia: EKG in ED w/ atrial flutter w/ rate ranging 30-50 on telemetry monitoring. Patient administered propofol in ED given chronic anticoagulated state and underwent eventual successful cardioversion with confirmation EKG. Will admit to PCU to be cautious, maintain on telemetry, obtain cardiac enzyme serial set, obtain ECHO, magnesium and TSH normal. Will continue patient chronic anticoagulant therapy. Will temporarily hold beta-kiah therapy given notable bradycardia but quickly add back if remains appropriate. Pending further evaluation workup low threshold to involve cardiology if necessary. #2. CAD: Status post PCI and CABG, will continue home aspirin, Xarelto, losartan, holding beta-kiah given significant bradycardia, not on statin therapy but will continue Zetia regimen. #3. Chronic Kidney Disease Stage III, unclear subtype: Admission BUN/Cr 31/1.61, baseline renal function primarily 1.4-1.5 with most recent prior 09/16/2022 creatinine 1.53 at that time, repeat BMP in AM. #4. Diabetes mellitus type II: Hold oral home regimen, continue home insulin regimen, ADA diet, accu checks w/ ISS. #5. Hypothyroidism: We will continue patient on levothyroxine regimen, TSH normal range. #6. History of CVA: Will continue aspirin, Xarelto, hypertensive regimen with alterations as noted, diabetic regimen with alterations as noted, not on statin therapy, continue Zetia. #7. BPH: We will continue patient on Flomax regimen. #8. History thrombosis left common femoral artery: We will continue patient home Xarelto regimen. #9. Hypertension: Continue home regimen including losartan, isosorbide, holding beta-kiah given significant bradycardia, PRN hydralazine. #10. Hyperlipidemia: We will continue patient home Zetia regimen. #11. Obesity: Weight loss and lifestyle changes encouraged. #12. Former tobacco use: Encourage continued tobacco cessation. #13. WILLIAN: BiPAP nightly. #14. DVT prophylaxis: We will continue patient home Xarelto regimen. #15. CODE status: Patient does not have healthcare power of civil litigation attorney or living will in place but notes that his would be his primary decision-maker although he does report that she is [place]ian and does not speak Ethiopian well. Discussed CODE status at length including difference between FULL code, DNR-CCA and DNR-CC status. Following discussions about the differences in these status, requested Full Code status but reports that if things were initially unsuccessful he would want to transition to comfort care. Advanced Care Planning Face to Face Time: 16 minutes. Charges/Coding Visit Charges Inpatient E&M: 95228 Init Hosp L3 Procedures Hospitalists Procedures: 27460 Advncd Care Plan 30 Min
[2022-10-28] VITALS (28 sets, daily range): BP systolic 131–168; BP diastolic 53–133; PULSE 18–75; RESP 12–53; TEMP 36.2–36.7; O2SAT 89–100; BMI 324.0
[2022-10-28] MEDS: Propofol 200 MG/20 ML Vial IV BOLUS (00:14)
--- NOTE | 2022-10-28 00:45 | EKG12_ITS ---
Test Reason : REPEAT Blood Pressure : / mmHG Vent. Rate : 052 BPM Atrial Rate : 052 BPM P-R Int : 218 ms QRS Dur : 156 ms QT Int : 572 ms P-R-T Axes : 065 -57 007 degrees QTc Int : 531 ms Sinus bradycardia with 1st degree A-V block Right bundle branch block Left anterior fascicular block Bifascicular block Inferior infarct , age undetermined Abnormal ECG Confirmed by JOHN WILLETT, MOE ([id number]), order editor LANDON GARCIA ([id number]) on 11/02/2022 9:12:31 AM Referred By: YUSEF Confirmed By:SHAHBAZ LOPEZ MD
[2022-10-28] MEDS: hydrALAZINE 20 MG/ML Vial 10 MG IV (01:46)
[2022-10-28 02:06] LABS: Bedside Glucose 67 mg/dL (74-106)
[2022-10-28 02:59] LABS: Absolute Lymphocyte Count 1.34 X10^3/uL (0.83-4.51); Absolute Neutrophil Count 6.5 X10^3/uL (2.0-7.7); Basophil# 0.04 X10^3/uL; Basophil% 0.5 % (0-1); Eosinophil# 0.12 X10^3/uL; Eosinophils% 1.4 % (0-5); Hematocrit 42.9 % (40-54); Hemoglobin 13.8 g/dL (13.0-16.5); Lymphocyte # 1.34 X10^3/ul (0.83-4.51); Lymphocyte % 15.9 % (19-41); Mean Corp Hgb Conc 32.2 g/dL (32-36); Mean Corpuscular Hgb 28.6 pg (27.0-32.0); Mean Platelet Vol. 12.6 fl (6.2-12.0); Monocyte# 0.45 X10^3/uL; Monocyte% 5.3 % (0-10); NRBC Flagged by Analyzer 0 % (0-5); Neutrophil # 6.47 X10^3/uL (2.7-7.7); Neutrophil % 76.5 % (47-70); Platelet Count 139 K/mm3 (150-450); RBC Distribution Width SD 51.8 fl (35.1-43.9); Red Blood Count 4.82 M/mm3 (4.6-6.2); White Blood Count 8.5 K/mm3 (4.4-11.0)
[2022-10-28 03:18] LABS: Troponin-I HS 65 pg/mL (3.0-78.0)
[2022-10-28 03:22] LABS: ALB/GLOB Ratio 0.7 RATIO (0.9-2.4); AST(SGOT) 15 U/L (15-37); Alanine Aminotransfer ALT/SGPT 24 U/L (16-61); Albumin, Serum 2.9 g/dL (3.2-5.0); Alkaline Phosphatase 53 U/L (45-117); Anion Gap 5 (5-15); BUN 30 mg/dL (7-18); BUN/Creat Ratio 22.4 RATIO (10-20); Calcium,Total 8.3 mg/dL (8.5-10.1); Chloride 115 mmol/L (98-107); Creatinine, Serum 1.34 mg/dL (0.70-1.30); EST Glomerular Filtration Rate 56 mL/min (>60); Est Glom Filt Rate - Afr Amer 67 mL/min (>60); Estimated Creatinine Clearance 56.31 ml/min; Globulin 4.2 g/dL (2.2-4.2); Glucose 81 mg/dL (74-106); Potassium 4.1 mmol/L (3.5-5.1); Protein, Total 7.1 g/dL (6.4-8.2); Sodium Level 143 mmol/L (136-145)
[2022-10-28] MEDS: Levothyroxine 100 MCG Tablet 200 MCG PO (06:25)
[2022-10-28] MEDS: Insulin Human 75/25 Kwickpen 40 UNIT SC (06:29)
--- NOTE | 2022-10-28 07:16 | PCM.PN.HOSP ---
Reason for Visit Reason for Visit: Diagnoses Unspecified atrial flutter (10/27/22) Bradycardia, unspecified (10/27/22) Subjective Subjective Patient is a 73-year-old gentleman with multiple comorbidities admitted with fatigue with minimal exertion. Patient had also complained of feeling lightheaded. Objective Data Objective Data Vital Signs: Vital Signs Temp Pulse Resp BP Pulse Ox O2 Del Method O2 Flow Rate 97.7 F L 70 16 160/74 H 95 Nasal Cannula 2 10/28/22 06:00 10/28/22 06:00 10/28/22 06:00 10/28/22 06:00 10/28/22 06:00 10/28/22 06:00 10/28/22 06:00 Oxygen Flow Rate (L/min) [3] 6 Oxygen Flow Rate (L/min) [1 ( 6 Initial Baseline)] Oxygen Flow Rate (L/min) 2 Oxygen Delivery Method [3] Nasal Cannula Oxygen Delivery Method [2] Nasal Cannula Oxygen Delivery Method [1 ( Nasal Cannula Initial Baseline)] Oxygen Delivery Method Nasal Cannula Weight: 1114.2 kg Body Mass Index (BMI) 324.0 Intake & Output: Intake and Output for Last 24 Hours 10/26/22 10/27/22 10/28/22 23:59 23:59 23:59 Intake Total 1000 / 1000 Output Total 400 / 400 Balance 1000 / 1000 -400 / -400 Lab / Micro Data 10/28/22 02:50 10/28/22 02:50 Labs: Laboratory Results - last 24 hr 10/27/22 19:57: WBC 7.3, RBC 5.09, Hgb 14.5, Hct 46.2, MCV 90.8, MCH 28.5, MCHC 31.4 L, RDW Std Deviation 51.9 H, RDW Coeff of [place] 15.9 H, Plt Count 134 L, MPV 13.0 H, Immature Gran % (Auto) 0.400, Neut % (Auto) 63.2, Lymph % (Auto) 25.4, [place] % (Auto) 7.0, Eos % (Auto) 3.2, Baso % (Auto) 0.8, Absolute Neuts (auto) 4.6, Absolute Lymphs (auto) 1.84, Nucleated RBC % 0, D-Dimer Quant (PE/DVT) 2.08 H*, Sodium 142, Potassium 4.1, Chloride 113 H, Carbon Dioxide 23.0, Anion Gap 6, BUN 31 H, Creatinine 1.61 H, Estim Creat Clear Calc 46.87, Est GFR (MDRD) Af Amer 55 L, Est GFR (MDRD) Non-Af 45 L, BUN/Creatinine Ratio 19.3, Glucose 89, Calcium 8.8, Magnesium 2.2, Total Bilirubin 0.60, AST 17, ALT 24, Alkaline Phosphatase 57, Troponin I High Sens 62, Total Protein 7.5, Albumin 3.1 L, Globulin 4.4 H, Albumin/Globulin Ratio 0.7 L, TSH 1.66 10/27/22 22:16: Troponin I High Sens 60 10/28/22 01:43: POC Glucose 67 L 10/28/22 02:50: WBC 8.5, RBC 4.82, Hgb 13.8, Hct 42.9, MCV 89.0, MCH 28.6, MCHC 32.2, RDW Std Deviation 51.8 H, RDW Coeff of [place] 16.0 H, Plt Count 139 L, MPV 12.6 H, Immature Gran % (Auto) 0.400, Neut % (Auto) 76.5 H, Lymph % (Auto) 15.9 L, [place] % (Auto) 5.3, Eos % (Auto) 1.4, Baso % (Auto) 0.5, Absolute Neuts (auto) 6.5, Absolute Lymphs (auto) 1.34, Nucleated RBC % 0, Sodium 143, Potassium 4.1, Chloride 115 H, Carbon Dioxide 23.0, Anion Gap 5, BUN 30 H, Creatinine 1.34 H, Estim Creat Clear Calc 56.31, Est GFR (MDRD) Af Amer 67, Est GFR (MDRD) Non-Af 56 L, BUN/Creatinine Ratio 22.4 H, Glucose 81, Calcium 8.3 L, Total Bilirubin 0.50, AST 15, ALT 24, Alkaline Phosphatase 53, Troponin I High Sens 65, Total Protein 7.1, Albumin 2.9 L, Globulin 4.2, Albumin/Globulin Ratio 0.7 L Radiography Diagnostic Testing: Radiology Impression Chest X-Ray 10/27/22 20:15 IMPRESSION: Small left effusion Electronically Signed: Romie Briscoe MD at 22:02 EDT , Chest CTA 10/27/22 20:44 IMPRESSION: Small bilateral pleural effusions. Cardiomegaly and coronary artery disease. COPD. Ununited sternotomy. Otherwise no acute disease. Electronically Signed: Romie Briscoe MD at 23:21 EDT Reading Location ID and State: [facility] / [place] , Service support , Physical Exam Narrative GENERAL: cooperative HEENT: Atraumatic; normocephalic EYES; Anicteric, Normal Conjunctiva NECK; supple, normal thyroid, RESPIRATORY: Diminished to auscultation CARDIOVASCULAR: Regular S1 S2, GI: soft, normoactive bowel sounds, : No Renal angle tenderness; EXTREMITIES: edema, no clubbing, MUSCULOSKELETAL: no muscle wasting NEURO: Awake; no lateralizing signs. SKIN: No Rash PSYCH; Flat affect Assessment & Plan Assessment/Plan (1) Atrial flutter by electrocardiogram: (2) Bradycardia: PLAN: Plan Patient is a 73-year-old gentleman with multiple comorbidities admitted with near syncope. Admitted to a monitored bed for further management 1. Acute congestive heart failure ? With preserved ejection fraction echo from 06/17/2022 demonstrated EF of 55%. Patient has been admitted to a monitored bed managed with strict input and output, fluid restriction, daily weight and IV diuretics. 2. Exertional dyspnea ? Given patient significant past cardiac history a nuclear stress test was ordered for a.m. 3. Coronary artery disease ? With previous PCI and CABG 4. Diabetes mellitus type II -patient's oral hypoglycemics held. Placed on long acting insulin, Accu-Cheks a.c. and at bedtime and covered with sliding scale insulin 5. Hypothyroidism - Patient is on levothyroxine home dose continued 6. History of left lower extremity DVT ? With previous thrombectomy patient is on Xarelto 7. History of CVA ? Patient is on antiplatelet therapy with aspirin 8. BPH ? Patient is on Flomax did continue 9. Peripheral arterial disease ? Previous thrombosis involving the left femoral artery 10. Class II obesity with BMI of 32.4 ? Complicating care weight loss advised 11. Dyslipidemia ? Patient is on Zetia 12. Obstructive sleep apnea ? Patient is on CPAP at night consistent use encouraged 13. Chronic kidney disease stage III -Kidney function at baseline 14. DVT prophylaxis ? On Xarelto Time spent in the patient's overall evaluation,decision-making process, review of diagnostic data, adjustment of management, discussion with other providers, nursing nursing and ancillary staff involved in patient's care documentation, 50 Minutes Charges/Coding Visit Charges Inpatient E&M: 19532 Subs Hosp L3
[2022-10-28] MEDS: Isosorbide Mononitrate 60 MG Tablet PO (08:54)
[2022-10-28] MEDS: Aspirin 81 MG TAB.CHEW PO (08:54)
[2022-10-28] MEDS: Ezetimibe 10 MG Tablet PO (08:54)
[2022-10-28] MEDS: Losartan Potassium 25 MG Tablet PO (08:54)
[2022-10-28] MEDS: Furosemide 40 MG/4 ML Vial IV ×3 (09:48→21:14)
[2022-10-28] MEDS: Acetaminophen 325 MG Tablet 650 MG PO (09:49)
[2022-10-28 10:23] LABS: BNP,B-Type NATRIURETIC PEPTIDE 425.2 pg/mL (0-100)
--- NOTE | 2022-10-28 10:25 | CASEMGMT ---
RN EDGAR Face to Face with patient for initial transition planning/care coordination assessment. RN CM introduced self and role at [facility]. Patient lying in bed, alert and oriented. Patient willing to participate in assessment and is able to answer all questions appropriately. Care providers, pharmacy, and demographics verified. Patient wishes to discharge home, denies need for home health at this time. Patient states he has no further needs or concerns at this time. CM to follow for discharge planning needs that may arise. PCP: Manpreet LEDESMA Specialists: Eliza LEDESMA Food Product Inspector Preferred Pharmacy: [facility] Insurance: [place], gauzz Prescription Benefit: yes Living Will/HPOA: none LNOK: Living Arrangements: Patient lives with in a 2 story townhouse. Patient states he is independent and able to ambulate stairs. Transportation: self, DME/HHC: Patient has walker, cpap, and pulse ox at home. Patient has had [facility] in the past. Will monitor for home oxygen at discharge, no preferences for DME. Disposition Plan: Patient to discharge home with family support and follow-up plans in place. Josefina DEXTER, RN, CM
[2022-10-28] MEDS: Tamsulosin HCl 0.4 MG Capsule PO (11:16)
[2022-10-28 11:22] LABS: Bedside Glucose 130 mg/dL (74-106)
[2022-10-28 11:52] LABS: Bedside Glucose 79 mg/dL (74-106)
[2022-10-28] MEDS: Insulin Lispro 100 UNIT/ML INSULN.PEN SC ×2 (15:49→21:21)
[2022-10-28] MEDS: Insulin Human 75/25 Kwickpen 32 UNIT SC (15:50)
[2022-10-28] MEDS: Rivaroxaban 20 MG Tablet PO (15:53)
[2022-10-28 16:12] LABS: Bedside Glucose 186 mg/dL (74-106)
[2022-10-28] MEDS: 0.9% Saline Lock 10 ML Syringe IV (21:13)
[2022-10-29 01:05] LABS: Bedside Glucose 215 mg/dL (74-106)
[2022-10-29 03:10] VITALS: BP 148/65; PULSE 70; RESP 18; TEMP 36.7; O2SAT 94
--- NOTE | 2022-10-29 05:19 | CPS ---
Pt refuses Bipap
[2022-10-29 05:22] VITALS: BMI 31.4
[2022-10-29] MEDS: 0.9% Saline Lock 10 ML Syringe IV (05:45)
[2022-10-29 05:46] LABS: Absolute Lymphocyte Count 1.27 X10^3/uL (0.83-4.51); Basophil# 0.05 X10^3/uL; Basophil% 0.6 % (0-1); Eosinophil# 0.22 X10^3/uL; Eosinophils% 2.7 % (0-5); Hematocrit 45.5 % (40-54); Hemoglobin 14.5 g/dL (13.0-16.5); Lymphocyte # 1.27 X10^3/ul (0.83-4.51); Lymphocyte % 15.4 % (19-41); Mean Corp Hgb Conc 31.9 g/dL (32-36); Mean Corpuscular Hgb 28.1 pg (27.0-32.0); Mean Corpuscular Volume 88.2 fL (80-94); Mean Platelet Vol. 12.3 fl (6.2-12.0); Monocyte# 0.65 X10^3/uL; Monocyte% 7.9 % (0-10); NRBC Flagged by Analyzer 0 % (0-5); Neutrophil # 5.99 X10^3/uL (2.7-7.7); Neutrophil % 72.8 % (47-70); Platelet Count 155 K/mm3 (150-450); RBC Distribution Width CV 15.9 % (11.6-14.6); RBC Distribution Width SD 51.3 fl (35.1-43.9); Red Blood Count 5.16 M/mm3 (4.6-6.2); White Blood Count 8.2 K/mm3 (4.4-11.0)
[2022-10-29 06:00] VITALS: BMI 31.5
[2022-10-29] MEDS: Aspirin 81 MG TAB.CHEW PO (06:29)
[2022-10-29] MEDS: Levothyroxine 100 MCG Tablet 200 MCG PO (06:29)
[2022-10-29 06:37] VITALS: BMI 31.5
[2022-10-29 06:47] LABS: Anion Gap 5 (5-15); BUN 27 mg/dL (7-18); BUN/Creat Ratio 19.7 RATIO (10-20); Calcium,Total 8.9 mg/dL (8.5-10.1); Chloride 107 mmol/L (98-107); Cholesterol 101 mg/dL (200); Creatinine, Serum 1.37 mg/dL (0.70-1.30); EST Glomerular Filtration Rate 54 mL/min (>60); Est Glom Filt Rate - Afr Amer 66 mL/min (>60); Estimated Creatinine Clearance 55.08 ml/min; Glucose 141 mg/dL (74-106); High Density Lipoprotein 39 mg/dL; Magnesium 1.8 mg/dL (1.6-2.6); Potassium 3.6 mmol/L (3.5-5.1); Sodium Level 142 mmol/L (136-145); Triglycerides 91 mg/dL; Very Low Density Lipoprotein 18 mg/dL (5-40)
[2022-10-29 07:00] VITALS: O2SAT 94
[2022-10-29 07:34] LABS: Bedside Glucose 145 mg/dL (74-106)
--- NOTE | 2022-10-29 08:35 | PCM.PN.HOSP ---
Reason for Visit Reason for Visit: Diagnoses Unspecified atrial flutter (10/27/22) Bradycardia, unspecified (10/27/22) Objective Data Objective Data Vital Signs: Vital Signs Temp Pulse Resp BP Pulse Ox O2 Del Method O2 Flow Rate 98.1 F 70 18 148/65 H 94 Nasal Cannula 2 10/29/22 03:10 10/29/22 03:10 10/29/22 03:10 10/29/22 03:10 10/29/22 07:00 10/29/22 07:00 10/29/22 07:00 Oxygen Flow Rate (L/min) [3] 6 Oxygen Flow Rate (L/min) [1 ( 6 Initial Baseline)] Oxygen Flow Rate (L/min) 2 Oxygen Delivery Method [3] Nasal Cannula Oxygen Delivery Method [2] Nasal Cannula Oxygen Delivery Method [1 ( Nasal Cannula Initial Baseline)] Oxygen Delivery Method Nasal Cannula Weight: 238 lb 12.17 oz Body Mass Index (BMI) 31.5 Intake & Output: Intake and Output for Last 24 Hours 10/27/22 10/28/22 10/29/22 23:59 23:59 23:59 Intake Total 1000 / 1000 Output Total 4600 / 6100 1900 / 1900 Balance 1000 / 1000 -4600 / -6100 -1900 / -1900 Lab / Micro Data 10/29/22 05:35 10/29/22 05:35 Labs: Laboratory Results - last 24 hr 10/28/22 02:50: B-Natriuretic Peptide 425.2 H 10/28/22 06:28: POC Glucose 79 10/28/22 10:41: POC Glucose 130 H 10/28/22 15:45: POC Glucose 186 H 10/28/22 21:19: POC Glucose 215 H 10/29/22 05:35: WBC 8.2, RBC 5.16, Hgb 14.5, Hct 45.5, MCV 88.2, MCH 28.1, MCHC 31.9 L, RDW Std Deviation 51.3 H, RDW Coeff of [place] 15.9 H, Plt Count 155, MPV 12.3 H, Immature Gran % (Auto) 0.600, Neut % (Auto) 72.8 H, Lymph % (Auto) 15.4 L, [place] % (Auto) 7.9, Eos % (Auto) 2.7, Baso % (Auto) 0.6, Absolute Neuts (auto) 6.0, Absolute Lymphs (auto) 1.27, Nucleated RBC % 0, Sodium 142, Potassium 3.6, Chloride 107, Carbon Dioxide 30.0, Anion Gap 5, BUN 27 H, Creatinine 1.37 H, Estim Creat Clear Calc 55.08, Est GFR (MDRD) Af Amer 66, Est GFR (MDRD) Non-Af 54 L, BUN/Creatinine Ratio 19.7, Glucose 141 H, Calcium 8.9, Phosphorus 3.0, Magnesium 1.8, Triglycerides 91, Cholesterol 101, LDL Cholesterol 44, VLDL Cholesterol 18, HDL Cholesterol 39 L 10/29/22 06:32: POC Glucose 145 H Physical Exam Narrative GENERAL: cooperative HEENT: Atraumatic; normocephalic EYES; Anicteric, Normal Conjunctiva NECK; supple, normal thyroid, RESPIRATORY: Diminished to auscultation CARDIOVASCULAR: Regular S1 S2, GI: soft, normoactive bowel sounds, : No Renal angle tenderness; EXTREMITIES: edema, no clubbing, MUSCULOSKELETAL: no muscle wasting NEURO: Awake; no lateralizing signs. SKIN: No Rash PSYCH; Flat affect Assessment & Plan Assessment/Plan (1) Atrial flutter by electrocardiogram: (2) Bradycardia: PLAN: Plan Patient is a 73-year-old gentleman with multiple comorbidities admitted with dizziness and near syncope for 3 days and has been constant. Admitted to a monitored bed for further management 1. Acute congestive heart failure ? With preserved ejection fraction echo from 06/17/2022 demonstrated EF of 55%. Patient has been admitted to a monitored bed managed with strict input and output, fluid restriction, daily weight and IV diuretics. Twelve-lead EKG individually reviewed showed atrial flutter with right bundle branch block with occasional PVC. 2. Exertional dyspnea ? Given patient significant past cardiac history a nuclear stress test was ordered for a.m. 3. Coronary artery disease ? With previous PCI and CABG 4. Diabetes mellitus type II -patient's oral hypoglycemics held. Placed on long acting insulin, Accu-Cheks a.c. and at bedtime and covered with sliding scale insulin 5. Hypothyroidism - Patient is on levothyroxine home dose continued 6. History of left lower extremity DVT ? With previous thrombectomy patient is on Xarelto 7. History of CVA ? Patient is on antiplatelet therapy with aspirin 8. BPH ? Patient is on Flomax did continue 9. Peripheral arterial disease ? Previous thrombosis involving the left femoral artery 10. Class II obesity with BMI of 32.4 ? Complicating care weight loss advised 11. Dyslipidemia ? Patient is on Zetia 12. Obstructive sleep apnea ? Patient is on CPAP at night consistent use encouraged 13. Chronic kidney disease stage III -Kidney function at baseline 14. DVT prophylaxis ? On Xarelto Time spent in the patient's overall evaluation,decision-making process, review of diagnostic data, adjustment of management, discussion with other providers, nursing nursing and ancillary staff involved in patient's care documentation, 50 Minutes
--- NOTE | 2022-10-29 09:30 | RAD_ITS ---
STUDY: X-RAY CHEST REASON FOR EXAM: Male, 72 years old. Dyspnea. TECHNIQUE: Frontal and lateral views of the chest. COMPARISON: Chest dated October 27, 2022. FINDINGS: Cardiomegaly, sternotomy wires, aortic tortuosity with calcification, mild hyperinflation and mild diffuse interstitial prominence, all unchanged. Small bilateral pleural effusions, likely unchanged. Findings compatible with mild interstitial edema/congestive failure. Follow-up chest imaging to resolution recommended. No abnormality of the visualized soft tissue structures of the upper abdomen. RAD/Chest PA and Lateral IMPRESSION: Findings compatible with mild interstitial edema/congestive failure. Follow-up chest imaging to resolution recommended. Electronically Signed: Juan Diego Mosley MD at 10:29 EDT ,
--- NOTE | 2022-10-29 10:05 | PCM.DC ---
Discharge Instructions Diet Discharge Diet: Low fat / Low cholesterol, 8 Cup Fluid Restriction and 2000 mg Sodium Diet Activity Discharge Activity: Return to Normal Activity Weight Bearing Status: Weight bearing as tolerated Dressing / Incision Call your doctor if you observe: Fever of 101 or Higher, Coldness, Increased Pain, Numbness or Tingling, Change in Color, Inability to urinate, Inability to have a bowel movement, Shortness of breath, Dizziness, Fainting spells, Swelling in the ankles, Chest pain, Prolonged hiccupping, Increased palpitations (irregular heartbeat) and Calf discomfort Follow Up Care When: IN 2 WEEKS Test Results: Test results from this visit will be discussed in further detail at your follow-up appointment, if applicable. Discharge Plan Admission Admit Date/Time: 10/27/22 23:39 Primary Reason for Your Visit: Heart failure exacerbation Attending Provider: Sameer Houston Primary Care Provider: [place], [place] Consulting Providers: Isabella Chappell; James Valdivia Instructions Additional Instructions / Restrictions: Follow-up BMP in 3 days with PCP. Discharge Orders/Prescriptions Prescriptions: New sennosides-docusate sodium [Stool Softener-Stimulant Laxat] 8.6-50 mg Tablet 2 tab PO BID PRN PRN (Reason: Constipation) Qty: 0 0RF furosemide [Lasix] 40 mg tablet 40 mg PO BID 30 Days Qty: 60 2RF Rx Instructions: Take furosemide 80 mg at 10 AM if increased leg swelling or weight gain 5 pounds in 1 week. Continued metformin 500 mg tablet 1,000 mg PO QHS losartan 25 mg tablet 25 mg PO DAILY Qty: 90 3RF nitroglycerin 0.4 mg tablet, sublingual 0.4 mg SUBLINGUAL Q5-15M PRN (Reason: chest pain) Qty: 90 6RF Rx Instructions: until response; do not exceed 3 doses per episode Novolin 70/30 U-100 Insulin 100 unit/mL (70-30) suspension 32 unit SUBCUT QHS Novolin 70/30 U-100 Insulin 100 unit/mL (70-30) suspension 40 unit SUBCUT DAILY pedi multivit 17-iron fumarate 15 mg iron Tablet,Chewable 1 tab PO DAILY isosorbide mononitrate 60 mg tablet extended release 24 hr 60 mg PO DAILY aspirin 81 MG tablet,chewable 81 mg PO DAILY@0800 ezetimibe [Zetia] 10 mg tablet 10 mg PO DAILY tamsulosin 0.4 mg Capsule 0.4 mg PO DAILY@1200 30 Days Qty: 30 0RF Xarelto 20 mg tablet 20 mg PO DAILY Qty: 30 2RF Rx Instructions: must administer with evening meal levothyroxine 175 mcg tablet 200 mcg PO DAILY empagliflozin 25 mg tablet See Rx Instructions PO DAILY Rx Instructions: 1/2 TAB orally daily; metoprolol tartrate 25 mg tablet 25 mg PO BID Qty: 60 11RF Rx Instructions: Hold for heart less than 50 or systolic blood pressure less than 100 mmHg. Referrals / Follow Up: Moreno Smith MD [Med Staff - Active Staff] - Within 1 Month [facility] [Primary Care Provider] - Within 2 Weeks Disposition Disposition (needs filled in before D/C Order can be placed): Home, Self Care
[2022-10-29 10:41] VITALS: BP 159/76; PULSE 79; RESP 17; TEMP 36.7; O2SAT 96
[2022-10-29] MEDS: Ezetimibe 10 MG Tablet PO (10:46)
[2022-10-29] MEDS: Isosorbide Mononitrate 60 MG Tablet PO (10:47)
[2022-10-29] MEDS: Losartan Potassium 25 MG Tablet PO (10:47)
[2022-10-29 10:49] VITALS: O2SAT 93
[2022-10-29 11:21] LABS: Bedside Glucose 223 mg/dL (74-106)
[2022-10-29] MEDS: Insulin Lispro 100 UNIT/ML INSULN.PEN SC (11:35)
--- NOTE | 2022-10-29 12:37 | PCM.DC.SUM ---
Providers Date of Admission: 10/27/22 Date of Discharge: 10/29/22 Primary Care Physician: [facility] Reason For Visit: NEAR SYNCOPE, PAFLUTTER, BRADYCARDIA Diagnosis Discharge Diagnosis (1) Atrial flutter by electrocardiogram: Status: Acute Code(s): I48.92 - Unspecified atrial flutter (2) Bradycardia: Status: Acute Code(s): R00.1 - Bradycardia, unspecified Plan Patient is a 73-year-old gentleman with multiple comorbidities admitted with dizziness and near syncope for 3 days and has been constant. Patient was admitted in PCU Admitted to a monitored bed for further management 1. Acute HFpEF, exact etiology unclear but patient has history of coronary artery disease status post CABG and hypertension ? With preserved ejection fraction echo from 06/17/2022 demonstrated EF of 55%. Patient has been admitted to a monitored bed managed with strict input and output, fluid restriction, daily weight and IV diuretics. Twelve-lead EKG individually reviewed showed atrial flutter with right bundle branch block with occasional PVC. ZAMZAM, prerenal on CKD stage IIIA: Patient admitted with creatinine 1.61. His baseline creatinine runs around 1.34. Gradually his creatinine getting better but started slight elevation therefore Lasix dose decreased to 40 mg p.o. twice daily. 2. Exertional dyspnea ? Given patient significant past cardiac history a nuclear stress test was ordered for a.m. stress test is pending 3. Coronary artery disease ? With previous PCI and CABG 4. Diabetes mellitus type II -patient's oral hypoglycemics held. Placed on long acting insulin, Accu-Cheks a.c. and at bedtime and covered with sliding scale insulin 5. Hypothyroidism - Patient is on levothyroxine home dose continued 6. History of left lower extremity DVT ? With previous thrombectomy patient is on Xarelto 7. History of CVA ? Patient is on antiplatelet therapy with aspirin 8. BPH ? Patient is on Flomax did continue 9. Peripheral arterial disease ? Previous thrombosis involving the left femoral artery 10. Class II obesity with BMI of 32.4 ? Complicating care weight loss advised 11. Dyslipidemia ? Patient is on Zetia 12. Obstructive sleep apnea ? Patient is on CPAP at night consistent use encouraged DVT prophylaxis ? On Xarelto Discharge medication reconciliation done. Discharge follow-up instructions completed. Discharge process discussed with the patient and all questions were answered to patient's satisfaction. Total time spent, exact 35 minutes on discharge meds reconciliation, examination, coordination of care with nurses and ancillary staff, review of imaging and blood test and discussion with the patient on follow-up instructions. Medications at Discharge Home Medications metformin 500 mg tablet 1,000 mg PO QHS DM 03/19/17 losartan 25 mg tablet 25 mg PO DAILY BP #90 tabs 05/25/18 nitroglycerin 0.4 mg sublingual tablet 0.4 mg sublingual Q5-15M PRN chest pain #90 tabs 05/25/18 aspirin 81 mg chewable tablet 81 mg PO DAILY@0800 HEALTH MAINTENANCE 06/16/22 ezetimibe 10 mg tablet (Zetia) 10 mg PO DAILY DM 06/16/22 insulin human U-100 NPH-regulr 70-30 mix 100 unit/mL subcutaneous susp (Novolin 70/30 U-100 Insulin) 32 unit subcut QHS DM 06/16/22 insulin human U-100 NPH-regulr 70-30 mix 100 unit/mL subcutaneous susp (Novolin 70/30 U-100 Insulin) 40 unit subcut DAILY DM 06/16/22 isosorbide mononitrate 60 mg tablet,extended release 24 hr 60 mg PO DAILY HEART 06/16/22 pediatric multivit no.17-ferrous fumarate 15 mg iron chewable tablet 1 tab PO DAILY SUPPLEMENT 06/16/22 rivaroxaban 20 mg tablet (Xarelto) 20 mg PO DAILY #30 tabs 06/19/22 tamsulosin 0.4 mg capsule 0.4 mg PO DAILY@1200 30 days #30 caps 06/19/22 levothyroxine 175 mcg tablet 200 mcg PO DAILY THYROID 07/02/22 empagliflozin 25 mg tablet See Rx Instructions PO DAILY 10/27/22 furosemide 40 mg tablet (Lasix) 40 mg PO BID 30 days #60 tabs 10/29/22 metoprolol tartrate 25 mg tablet 25 mg PO BID HEART/BLOOD PRESSURE #60 tabs 10/29/22 sennosides 8.6 mg-docusate sodium 50 mg tablet (Stool Softener-Stimulant Laxative) 2 tab PO BID PRN PRN Constipation #0 tabs 10/29/22 Physical Exam Narrative General: Alert, Oriented x3, Cooperative HEENT: Atraumatic, PERRLA, EOMI, Normocephalic Oral: Oral mucosa dry. No Gingival or Mucosal Lesions/ Ulcerations Neck: Supple, No JVD, Negative Carotid Bruits Lungs: Air entry diminished in bilateral lung bases. No crepitation/rhonchi Cardiovascular: Regular rate, Regular Rhythm, Normal S1, Normal S2, subtle systolic murmur over loosely Abdomen: Bowel Sounds Present, Soft, Non Tender, mild distention/ascites. Shifting dullness present. : No renal angle tenderness. No suprapubic tenderness. Extremities: 2+ bilateral LE pitting edema, Capillary Refill Less than 3 Seconds Skin: No rashes, No breakdown Musculoskeletal: No Tenderness to Palpation of Joints or Extremities. ROM restricted due to swelling. Neurological: Cranial nerves II-XII grossly intact, DTR 2+/4. No acute focal neurological deficit. Psych/Mental Status: Normal Affect, Appropriate. Weight / BMI Weight Weight: 238 lb 12.17 oz Body Mass Index (BMI) 31.5 ABG / Lab / Microbiology Data 10/29/22 05:35 10/29/22 05:35 Laboratory: Laboratory Results - last 24 hr 10/28/22 15:45: POC Glucose 186 H 10/28/22 21:19: POC Glucose 215 H 10/29/22 05:35: WBC 8.2, RBC 5.16, Hgb 14.5, Hct 45.5, MCV 88.2, MCH 28.1, MCHC 31.9 L, RDW Std Deviation 51.3 H, RDW Coeff of [place] 15.9 H, Plt Count 155, MPV 12.3 H, Immature Gran % (Auto) 0.600, Neut % (Auto) 72.8 H, Lymph % (Auto) 15.4 L, [place] % (Auto) 7.9, Eos % (Auto) 2.7, Baso % (Auto) 0.6, Absolute Neuts (auto) 6.0, Absolute Lymphs (auto) 1.27, Nucleated RBC % 0, Sodium 142, Potassium 3.6, Chloride 107, Carbon Dioxide 30.0, Anion Gap 5, BUN 27 H, Creatinine 1.37 H, Estim Creat Clear Calc 55.08, Est GFR (MDRD) Af Amer 66, Est GFR (MDRD) Non-Af 54 L, BUN/Creatinine Ratio 19.7, Glucose 141 H, Calcium 8.9, Phosphorus 3.0, Magnesium 1.8, Triglycerides 91, Cholesterol 101, LDL Cholesterol 44, VLDL Cholesterol 18, HDL Cholesterol 39 L 10/29/22 06:32: POC Glucose 145 H 10/29/22 11:03: POC Glucose 223 H Radiography Diagnostic Testing: Radiology Impression Chest X-Ray 10/29/22 09:30 IMPRESSION: Findings compatible with mild interstitial edema/congestive failure. Follow-up chest imaging to resolution recommended. Electronically Signed: Juan Diego Mosley MD at 10:29 EDT , D/C Instructions Discharge Diet: Low fat / Low cholesterol, 8 Cup Fluid Restriction and 2000 mg Sodium Diet Weight Bearing Status: Weight bearing as tolerated Call your doctor if you observe: Fever of 101 or Higher, Coldness, Increased Pain, Numbness or Tingling, Change in Color, Inability to urinate, Inability to have a bowel movement, Shortness of breath, Dizziness, Fainting spells, Swelling in the ankles, Chest pain, Prolonged hiccupping, Increased palpitations (irregular heartbeat) and Calf discomfort When: IN 2 WEEKS Meaningful Use Info Meaningful Use Diagnoses (Choose all that apply): CHF CHF CORNELL/ARB ordered at discharge?: Yes Documented LVEF (%): 55 Discharge Plan Admission Admit Date/Time: 10/27/22 23:39 Primary Reason for Your Visit: Heart failure exacerbation Attending Provider: Sameer Houston Primary Care Provider: [facility] Consulting Providers: Isabella Chappell; James Valdivia Instructions Additional Instructions / Restrictions: Follow-up BMP in 3 days with PCP. Discharge Orders/Prescriptions Prescriptions: New sennosides-docusate sodium [Stool Softener-Stimulant Laxat] 8.6-50 mg Tablet 2 tab PO BID PRN PRN (Reason: Constipation) Qty: 0 0RF furosemide [Lasix] 40 mg tablet 40 mg PO BID 30 Days Qty: 60 2RF Rx Instructions: Take furosemide 80 mg at 10 AM if increased leg swelling or weight gain 5 pounds in 1 week. Continued metformin 500 mg tablet 1,000 mg PO QHS losartan 25 mg tablet 25 mg PO DAILY Qty: 90 3RF nitroglycerin 0.4 mg tablet, sublingual 0.4 mg SUBLINGUAL Q5-15M PRN (Reason: chest pain) Qty: 90 6RF Rx Instructions: until response; do not exceed 3 doses per episode Novolin 70/30 U-100 Insulin 100 unit/mL (70-30) suspension 32 unit SUBCUT QHS Novolin 70/30 U-100 Insulin 100 unit/mL (70-30) suspension 40 unit SUBCUT DAILY pedi multivit 17-iron fumarate 15 mg iron Tablet,Chewable 1 tab PO DAILY isosorbide mononitrate 60 mg tablet extended release 24 hr 60 mg PO DAILY aspirin 81 MG tablet,chewable 81 mg PO DAILY@0800 ezetimibe [Zetia] 10 mg tablet 10 mg PO DAILY tamsulosin 0.4 mg Capsule 0.4 mg PO DAILY@1200 30 Days Qty: 30 0RF Xarelto 20 mg tablet 20 mg PO DAILY Qty: 30 2RF Rx Instructions: must administer with evening meal levothyroxine 175 mcg tablet 200 mcg PO DAILY empagliflozin 25 mg tablet See Rx Instructions PO DAILY Rx Instructions: 1/2 TAB orally daily; metoprolol tartrate 25 mg tablet 25 mg PO BID Qty: 60 11RF Rx Instructions: Hold for heart less than 50 or systolic blood pressure less than 100 mmHg. Referrals / Follow Up: Moreno Smith MD [Med Staff - Active Staff] - Within 1 Month [facility] [Primary Care Provider] - Within 2 Weeks Disposition Disposition (needs filled in before D/C Order can be placed): Home, Self Care Charges/Coding Visit Charges Inpatient E&M: 61605 Disch Hosp >30min
--- NOTE | 2022-10-29 12:50 | STRESSREP_ITS ---
Stress Test Report Date: [] Procedure: Pharmacologic stress nuclear imaging study Indications: Chest pain Consent: Per the patient Procedure: The patient underwent pharmacologic (Regadenoson) evaluation with a peak heart rate of 98 beats per minute (66%predicted maximal heart rate) and a peak blood pressure of 158/72 mmHg. The baseline ECG demonstrated normal sinus rhythm with frequent PVCs, right bundle branch block. EKG during lexiscan infusion revealed no significant ischemic changes. EKG post infusion revealed no significant ischemic changes [There was no complaint of chest discomfort during pharmacologic infusion or recovery]. The examination was discontinued secondary to completion of protocol. Impression: 1. Lexiscan stress test test is negative for Lexiscan infusion induced EKG changes of ischemia. 2. Lexiscan stress test test is negative for Lexiscan infusion induced chest pain. 3. Results of the nuclear portion of the test is as below Myocardial perfusion imaging study: Technique: The patient was injected with 15 millicuries of technetium 99m Cardiolite and subsequently rest SPECT Cardiolite nuclear imaging was obtained in the horizontal long, vertical long, and short axis views. The patient underwent pharmacologic [Regadenoson 0.4mg] evaluation. Please see above for details. The patient was injected with 44.7 millicuries of technetium 99m Cardiolite and subsequently stress SPECT Cardiolite nuclear imaging was obtained in the horizontal long, vertical long, and short axis views. A gated Cardiolite study at peak stress was obtained. Interpretation: Rest and stress SPECT Cardiolite nuclear imaging status post realignment, normalization, and attenuation correction demonstrate severely decreased to absent radioisotope uptake in the inferior wall on both the rest and stress images. There is no significant reversibility suggestive of significant ischemia. Gated images reveal inferior hypokinesis. The reported LVEF is 49%. These findings are suggestive of old inferior myocardial infarction with no evidence of significant ischemia. Impression: 1. There is no evidence of significant ischemia. 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 2. Estimated ejection fraction is 49%. This note was generated with [employer] software. It may contain incorrect words, spelling, and punctuation that were not noted in checking the note before signing.
[2022-10-29 14:35] VITALS: O2SAT 92; O2SAT 93
== END 2022-10-29 15:17 | disposition home or self-care (01) | DRG 291 ==
LOC: ED 23:54 → PCU 10-28 00:37
PROVIDERS: Internal Medicine; Admitting Provider Family Medicine; Emergency Provider Emergency Medicine; Visit Provider Internal Medicine
DX: I13.0 Hypertensive heart and chronic kidney disease with heart failure and stage 1 through stage 4 chronic kidney disease, or unspecified chronic kidney disease (principal); I50.31 Acute diastolic (congestive) heart failure; I48.92 Unspecified atrial flutter; N17.9 Acute kidney failure, unspecified; E11.22 Type 2 diabetes mellitus with diabetic chronic kidney disease; E11.51 Type 2 diabetes mellitus with diabetic peripheral angiopathy without gangrene; N18.31 Chronic kidney disease, stage 3a; E03.9 Hypothyroidism, unspecified; G47.33 Obstructive sleep apnea (adult) (pediatric); E78.5 Hyperlipidemia, unspecified; I25.10 Atherosclerotic heart disease of native coronary artery without angina pectoris; I45.10 Unspecified right bundle-branch block; E66.9 Obesity, unspecified; Z87.891 Personal history of nicotine dependence; Z79.82 Long term (current) use of aspirin; Z79.01 Long term (current) use of anticoagulants; Z79.84 Long term (current) use of oral hypoglycemic drugs; Z86.73 Personal history of transient ischemic attack (TIA), and cerebral infarction without residual deficits; N40.0 Benign prostatic hyperplasia without lower urinary tract symptoms; Z68.32 Body mass index [BMI] 32.0-32.9, adult; Z86.718 Personal history of other venous thrombosis and embolism
CPT/HCPCS: 71045; 71046; 71275; 78452; 80048; 80053; 80061; 82962; 83735; 83880; 84100; 84443; 84484; 85025; 85379; 92960; 93005; 93017; 94640; 94668; 94762; 99252; 99285; A9500; J7030; Q9967; A4216; G0463; J1940; J2785

== ENCOUNTER 2022-11-13 11:33 | Emergency (ER) | payer OTHER, SELFPAY ==
[2022-11-13 11:33] VITALS: BP 139/65; PULSE 52; RESP 18; TEMP 35.8; O2SAT 95; BMI 30.4
--- NOTE | 2022-11-13 12:09 | EDS_ITS ---
HPI History of Present Illness Chief Complaint: Dizziness Detail of Chief Complaint: Dizziness described as balance off and li ghtheadedness Informant: patient Onset/Context/Timing Onset: Days (Onset Wednesday, November 09) Context: Sudden Onset Timing: Intermittent Quality: Balance off Location: Not applicable Current Severity: Gone Maximum Severity: Moderate Worsened by: Upright position Relieved by: Nothing per patient Associated Symptoms Associated Symptoms: Nausea and orthostatic symptoms Narrative Narrative: Patient is a 72-year-old male with history of coronary disease, nonsustained V. tach, peripheral arterial disease with recent ischemic left foot, hypertension, hyperlipidemia and diabetes who presents with dizziness described as balance being off with nausea. He also reports orthostatic symptoms. He denies headache, he denies visual, ocular auditory symptoms. [place] double vision. He denies partial or complete loss of vision. He denies trouble with speech or swallowing. He denies cardiac respiratory symptoms. Denies black or maroon- colored stool. He denies urologic symptoms. He denies paresthesia, anesthesia or motor weakness. Prior similar symptoms: No Recent Illness/Hospitalization: Yes [facility] Medical History (HFpEF) heart failure with preserved ejection fraction Aftercare following surgery of the circulatory system Atherosclerosis of [place] coronary artery of [place] heart without angina pectoris Atrial flutter Atrial flutter by electrocardiogram BPH (benign prostatic hyperplasia) CAD (coronary artery disease) CKD (chronic kidney disease) CVA (cerebral vascular accident) Diabetes mellitus Dizziness Essential (primary) hypertension History of DVT (deep vein thrombosis) History of non-ST elevation myocardial infarction (NSTEMI) Hyperlipidemia Hypothyroidism Ischemic stroke Left leg pain NSVT (nonsustained ventricular tachycardia) Obesity Open wound of scalp WILLIAN treated with BiPAP PAD (peripheral artery disease) Palpitations Peripheral neuropathy Stroke Thrombosis of left common femoral artery Thyroid disorder Home Medications metformin 500 mg tablet 1,000 mg PO QHS DM 03/19/17 [History Last Taken 10/27/22 18:30] losartan 25 mg tablet 25 mg PO DAILY BP #90 tabs 05/25/18 [Rx Last Taken 10/27/22 18:30] nitroglycerin 0.4 mg sublingual tablet 0.4 mg sublingual Q5-15M PRN chest pain #90 tabs 05/25/18 [Rx Last Taken Unknown] aspirin 81 mg chewable tablet 81 mg PO DAILY@0800 HEALTH MAINTENANCE 06/16/22 [History Last Taken 10/27/22 08:00] ezetimibe 10 mg tablet (Zetia) 10 mg PO DAILY DM 06/16/22 [History Last Taken 10/27/22 08:00] insulin human U-100 NPH-regulr 70-30 mix 100 unit/mL subcutaneous susp (Novolin 70/30 U-100 Insulin) 32 unit subcut QHS DM 06/16/22 [History Last Taken 06/15/22] insulin human U-100 NPH-regulr 70-30 mix 100 unit/mL subcutaneous susp (Novolin 70/30 U-100 Insulin) 40 unit subcut DAILY DM 06/16/22 [History Last Taken 06/16/22] isosorbide mononitrate 60 mg tablet,extended release 24 hr 60 mg PO DAILY HEART 06/16/22 [History Last Taken 10/27/22 08:00] pediatric multivit no.17-ferrous fumarate 15 mg iron chewable tablet 1 tab PO DAILY SUPPLEMENT 06/16/22 [History Last Taken 06/16/22] rivaroxaban 20 mg tablet (Xarelto) 20 mg PO DAILY #30 tabs 06/19/22 [Rx Last Taken 10/27/22 18:30] tamsulosin 0.4 mg capsule 0.4 mg PO DAILY@1200 30 days #30 caps 06/19/22 [Rx Last Taken 10/27/22 18:30] levothyroxine 175 mcg tablet 200 mcg PO DAILY THYROID 07/02/22 [History Last Taken 10/27/22 20:55] empagliflozin 25 mg tablet See Rx Instructions PO DAILY 10/27/22 [History Last Taken 10/27/22 08:00] furosemide 40 mg tablet (Lasix) 40 mg PO BID 30 days #60 tabs 10/29/22 [Rx Last Taken Unknown] metoprolol tartrate 25 mg tablet 25 mg PO BID HEART/BLOOD PRESSURE #60 tabs 10/29/22 [Rx Last Taken 10/27/22 20:56] sennosides 8.6 mg-docusate sodium 50 mg tablet (Stool Softener-Stimulant Laxative) 2 tab PO BID PRN PRN Constipation #0 tabs 10/29/22 [Rx Last Taken Unknown] Allergy/AdvReac Type Severity Reaction Status Date / Time atorvastatin [From Lipitor] AdvReac Severe mylagia Verified 10/27/22 19:28 lanolin AdvReac Severe Rash Verified 10/27/22 19:28 Family History Sister CAD (coronary artery disease) Diabetes Brother CAD (coronary artery disease) Father Asthma Mother Cancer lung Surgical History History of coronary artery bypass surgery (~01/21/17) Hx of cardiac catheterization (~01/19/17) S/P coronary artery stent placement (~04/05/18) Social History household members: spouse Smoking Status: Former smoker how long ago did patient quit smokin alcohol intake: never substance use type: does not use caffeine: Yes Type: coffee Number of servings: 3 what type of physical activity do you participate in: none seatbelt use: always do you feel safe at home: Yes ROS ROS ED Constitutional Constitutional ED: Denies chills, fever(s), subjective or sweats Eyes Eyes: Denies blurry vision, change in vision or diplopia ENT ENT ED: Denies ear pain, rhinorrhea or sore throat Cardiovascular Cardiovascular: Denies chest pain, palpitations or racing heartbeat Respiratory/Chest Respiratory/Chest: Denies cough, dyspnea or dyspnea on exertion Gastrointestinal Gastrointestinal: Reports nausea; Denies abdominal pain, diarrhea, melena or vomiting Genitourinary Genitourinary ED: Denies dysuria, hematuria or urinary frequency Musculoskeletal Musculoskeletal: Denies arthralgias, back pain or myalgias Integumentary Denies rash Neurologic Neurologic: Denies headache(s), paresthesias or weakness Psychiatric Psychiatric: Denies anxiety or depression Endocrine Endocrinology: Denies cold intolerance, heat intolerance, polydipsia or polyuria Hematologic/Lymphatic Hematologic/Lymphatic: Reports systems reviewed and no addt'l complaints, except as documented EXAM Physical Exam Const Vital Signs: 11/13/22 11:33 11/13/22 13:18 11/13/22 13:19 Temperature 96.5 F L Temperature Source Temporal Pulse Rate 52 L 51 L Pulse Rate [Lying] Pulse Rate [Standing (for 1 minute prior to obtaining)] Respiratory Rate 18 18 Respiratory Pattern Normal Blood Pressure 139/65 H 135/61 H Blood Pressure [Lying] Blood Pressure [Sitting (for 1 minute prior to obtaining)] Blood Pressure [Standing (for 1 minute prior to obtaining)] Blood Pressure Mean 89 85 Blood Pressure Mean [Lying] Blood Pressure Mean [Sitting (for 1 minute prior to obtaining)] Blood Pressure Mean [Standing (for 1 minute prior to obtaining)] Pulse Ox 95 95 Oxygen Delivery Method Room Air Room Air 11/13/22 13:47 Temperature Temperature Source Pulse Rate Pulse Rate [Lying] 47 L Pulse Rate [Standing (for 1 minute prior to obtaining)] 61 Respiratory Rate Respiratory Pattern Blood Pressure Blood Pressure [Lying] 153/69 H Blood Pressure [Sitting (for 1 minute prior to obtaining)] 132/61 H Blood Pressure [Standing (for 1 minute prior to obtaining)] 101/77 Blood Pressure Mean Blood Pressure Mean [Lying] 97 Blood Pressure Mean [Sitting (for 1 minute prior to obtaining)] 84 Blood Pressure Mean [Standing (for 1 minute prior to obtaining)] 85 Pulse Ox Oxygen Delivery Method Orthostatic vital signs are positive with drop in blood pressure this probably represents autonomic dysfunction due to his diabetes. There is no tachycardia. He did complain of some lightheadedness with standing Positive well nourished and well developed General Appearance ED: well developed and NAD; Negative for cyanotic or diaphoretic HEENT Reports moist mucous membranes HEENT Narrative: Head is atraumatic and normocephalic. Ears normal. Nares patent. Posterior pharynx out erythema or exudate. Uvula is midline. There is noted with protrusion. Eyes PERRL and EOMs intact bilaterally General Eye ED: Negative for pale conjunctiva or scleral icterus Neck no lymphadenopathy, supple and no JVD Chest Wall inspection of chest normal and palpation of chest normal Resp normal respiratory effort and clear to auscultation bilaterally Cardio regular rate, regular rhythm, S1 normal heart sound, S2 normal heart sound and no murmurs GI normal to inspection, nondistended, normoactive bowel sounds, non-tender, non- distended and no masses; Negative for hepatosplenomegaly Back/Spine no CVA tenderness Thoracic Spine / Upper Back: Negative for thoracic spinal tenderness Lumbar Spine / Lower Back: Negative for lumbar spinal tenderness Extremity normal to inspection Neuro oriented x3, CN's II-XII intact bilaterally and no sensory deficits noted Neuro Narrative: There is no dysmetria. Romberg with eyes open and close negative. The eye askew test and hand test were negative. Joyce-Hallpike maneuver was positive to the left. Gait was observed and unremarkable. Able to walk on heels and toes. Tandem gait he had slight difficulty. Sensorium / Orientation: alert Motor Exam: strength 5/5 throughout Psych mental status grossly normal Mood & Affect: Negative for depressed or anxious Skin no rashes or lesions noted, no wounds and skin turgor normal MDM MDM MDM Narrative Medical decision making narrative: Because patient complains of orthostatic symptoms orthostatic vital signs were obtained. With a positive Joyce-Hallpike maneuver suspect patient has paroxysmal benign positional vertigo. We will perform John maneuver. Since he is bradycardic EKG was obtained. Because he is diabetic BMP was obtained to assess glucose and as well as CO2 anion gap. CBC to rule out anemia. History & Record Review Additional record(s) reviewed:: Prior inpatient record (Recent inpatient for arterial occlusion left lower extremity requiring operative intervention.), Prior ED visit and Prior labs Lab Data Attestation: I reviewed the patient's lab results. Lab results narrative: CBC is normal. Basic metabolic panel reveals a BUN of 43 and a creatinine 1.67 with a GFR of 43. This is approximately patient's baseline. Glucose is elevated 119 with a normal CO2 anion gap. Labs: Laboratory Results - last 24 hr 11/13/22 12:20 WBC 9.1 RBC 5.74 Hgb 16.5 Hct 49.0 MCV 85.4 MCH 28.7 MCHC 33.7 RDW Std Deviation 46.8 H RDW Coeff of [place] 15.2 H Plt Count 202 MPV 12.6 H Immature Gran % (Auto) 0.500 Neut % (Auto) 67.8 Lymph % (Auto) 20.2 Barry % (Auto) 7.0 Eos % (Auto) 3.5 Baso % (Auto) 1.0 Absolute Neuts (auto) 6.2 Absolute Lymphs (auto) 1.85 Nucleated RBC % 0 Sodium 138 Potassium 3.7 Chloride 104 Carbon Dioxide 29.0 Anion Gap 5 BUN 43 H Creatinine 1.67 H Estim Creat Clear Calc 45.19 Est GFR (MDRD) Af Amer 52 L Est GFR (MDRD) Non-Af 43 L BUN/Creatinine Ratio 25.7 H Glucose 119 H Calcium 9.5 Procedures Other Procedures Procedure(s): Modified John maneuver was performed. Initially patient was placed on left side because he had symptoms on left side with JOYCE Hallpike maneuver. Patient had no symptoms when he was on his left side. However, when his head was turned to the right he had symptoms with nystagmus noted. This resolved after 3 to 4 minutes. Patient was placed in upright position with head flexed approximately 15 to 20 degrees. Discharge Plan Triage Chief Complaint: Dizziness ED Provider: Pawel Kapoor Dx/Rx/DC Orders Clinical Impression: Benign paroxysmal positional vertigo due to bilateral vestibular disorder, CKD (chronic kidney disease), Essential (primary) hypertension, Type 1 diabetes mellitus with autonomic dysfunction, Chronic anemia, History of stroke Instructions: ED BPV Vertigo, ED Hypotension, Orthostatic Prescriptions: No Action metformin 500 mg tablet 1,000 mg PO QHS losartan 25 mg tablet 25 mg PO DAILY Qty: 90 3RF nitroglycerin 0.4 mg tablet, sublingual 0.4 mg SUBLINGUAL Q5-15M PRN (Reason: chest pain) Qty: 90 6RF Rx Instructions: until response; do not exceed 3 doses per episode Novolin 70/30 U-100 Insulin 100 unit/mL (70-30) suspension 32 unit SUBCUT QHS Novolin 70/30 U-100 Insulin 100 unit/mL (70-30) suspension 40 unit SUBCUT DAILY pedi multivit 17-iron fumarate 15 mg iron Tablet,Chewable 1 tab PO DAILY isosorbide mononitrate 60 mg tablet extended release 24 hr 60 mg PO DAILY aspirin 81 MG tablet,chewable 81 mg PO DAILY@0800 ezetimibe [Zetia] 10 mg tablet 10 mg PO DAILY tamsulosin 0.4 mg Capsule 0.4 mg PO DAILY@1200 30 Days Qty: 30 0RF Xarelto 20 mg tablet 20 mg PO DAILY Qty: 30 2RF Rx Instructions: must administer with evening meal levothyroxine 175 mcg tablet 200 mcg PO DAILY empagliflozin 25 mg tablet See Rx Instructions PO DAILY Rx Instructions: 1/2 TAB orally daily; sennosides-docusate sodium [Stool Softener-Stimulant Laxat] 8.6-50 mg Tablet 2 tab PO BID PRN PRN (Reason: Constipation) Qty: 0 0RF furosemide [Lasix] 40 mg tablet 40 mg PO BID 30 Days Qty: 60 2RF Rx Instructions: Take furosemide 80 mg at 10 AM if increased leg swelling or weight gain 5 pounds in 1 week. metoprolol tartrate 25 mg tablet 25 mg PO BID Qty: 60 11RF Rx Instructions: Hold for heart less than 50 or systolic blood pressure less than 100 mmHg. [facility] [[facility] Provider] - 3-5 Days if not improving Disposition Disposition: Home, Self Care
[2022-11-13 12:28] LABS: Absolute Lymphocyte Count 1.85 X10^3/uL (0.83-4.51); Absolute Neutrophil Count 6.2 X10^3/uL (2.0-7.7); Basophil# 0.09 X10^3/uL; Eosinophil# 0.32 X10^3/uL; Eosinophils% 3.5 % (0-5); Hemoglobin 16.5 g/dL (13.0-16.5); Lymphocyte # 1.85 X10^3/ul (0.83-4.51); Lymphocyte % 20.2 % (19-41); Mean Corp Hgb Conc 33.7 g/dL (32-36); Mean Corpuscular Hgb 28.7 pg (27.0-32.0); Mean Corpuscular Volume 85.4 fL (80-94); Mean Platelet Vol. 12.6 fl (6.2-12.0); Monocyte# 0.64 X10^3/uL; NRBC Flagged by Analyzer 0 % (0-5); Neutrophil # 6.19 X10^3/uL (2.7-7.7); Neutrophil % 67.8 % (47-70); Platelet Count 202 K/mm3 (150-450); RBC Distribution Width CV 15.2 % (11.6-14.6); RBC Distribution Width SD 46.8 fl (35.1-43.9); Red Blood Count 5.74 M/mm3 (4.6-6.2); White Blood Count 9.1 K/mm3 (4.4-11.0)
[2022-11-13 12:45] LABS: Anion Gap 5 (5-15); BUN 43 mg/dL (7-18); BUN/Creat Ratio 25.7 RATIO (10-20); Calcium,Total 9.5 mg/dL (8.5-10.1); Chloride 104 mmol/L (98-107); Creatinine, Serum 1.67 mg/dL (0.70-1.30); EST Glomerular Filtration Rate 43 mL/min (>60); Est Glom Filt Rate - Afr Amer 52 mL/min (>60); Estimated Creatinine Clearance 45.19 ml/min; Glucose 119 mg/dL (74-106); Potassium 3.7 mmol/L (3.5-5.1); Sodium Level 138 mmol/L (136-145)
[2022-11-13 13:19] VITALS: BP 135/61; PULSE 51; RESP 18; O2SAT 95
[2022-11-13 13:47] VITALS: BP 101/77; BP 132/61; BP 153/69; PULSE 47; PULSE 61
== END 2022-11-13 14:34 | disposition home or self-care (01) ==
PROVIDERS: Emergency Provider Emergency Medicine; Visit Provider Emergency Medicine
DX: H81.13 Benign paroxysmal vertigo, bilateral (principal); E10.51 Type 1 diabetes mellitus with diabetic peripheral angiopathy without gangrene; I13.0 Hypertensive heart and chronic kidney disease with heart failure and stage 1 through stage 4 chronic kidney disease, or unspecified chronic kidney disease; I50.32 Chronic diastolic (congestive) heart failure; E10.22 Type 1 diabetes mellitus with diabetic chronic kidney disease; E10.42 Type 1 diabetes mellitus with diabetic polyneuropathy; Z79.4 Long term (current) use of insulin; Z87.891 Personal history of nicotine dependence; I25.10 Atherosclerotic heart disease of native coronary artery without angina pectoris; D64.9 Anemia, unspecified; Z86.73 Personal history of transient ischemic attack (TIA), and cerebral infarction without residual deficits; E78.5 Hyperlipidemia, unspecified; Z79.899 Other long term (current) drug therapy; Z79.84 Long term (current) use of oral hypoglycemic drugs
CPT/HCPCS: 80048; 85025; 99285

== ENCOUNTER 2023-02-14 09:13 | Inpatient (IN) | payer BC, MEDICARE, SELFPAY ==
[2023-02-14] VITALS (20 sets, daily range): BP systolic 113–166; BP diastolic 43–88; PULSE 44–72; RESP 12–25; TEMP 36.1–36.6; O2SAT 9–98; BMI 30.2; BMI 29.9
--- NOTE | 2023-02-14 09:49 | EKG12_ITS ---
Test Reason : REPEAT Blood Pressure : / mmHG Vent. Rate : 051 BPM Atrial Rate : 000 BPM P-R Int : 000 ms QRS Dur : 160 ms QT Int : 504 ms P-R-T Axes : 000 -60 133 degrees QTc Int : 464 ms Sinus rhythm Left axis deviation Right bundle branch block Inferior infarct , age undetermined T wave abnormality, consider lateral ischemia Abnormal ECG Confirmed by FABIOLA WILLETT, EDWIN ([id number]), magazine editor CHANNING LLOYD ([id number]) on 02/15/2023 12:13:20 PM Referred By: JOSE Confirmed By:EDWIN HICKS MD
[2023-02-14] MEDS: 0.9% Normal Saline (1000mL) 1,000 ML 1000 ML IV (09:58)
--- NOTE | 2023-02-14 10:00 | RAD_ITS ---
STUDY: X-RAY CHEST REASON FOR EXAM: Male, 72 years old. weakness TECHNIQUE: Single AP portable view of the chest. COMPARISON: 10/29/2022 FINDINGS: EKG leads overlie the chest The lungs are clear and expanded. There is no demonstrated pleural abnormality. Sternal cerclage wires and vascular clips are present from a prior sternotomy and coronary artery bypass graft procedure (CABG). Normal mediastinum and nasrin. Normal visualized pulmonary arteries. Normal visualized aortic arch and descending thoracic aorta. Normal visualized thoracic spine. Normal visualized ribs, clavicles, and shoulders. There is no demonstrated abnormality of the visualized soft tissue structures of the upper abdomen. RAD/Chest 1 View (Portable) IMPRESSION: No acute pulmonary process Electronically Signed: Bonifacio Smyth MD at 11:03 EST ,
[2023-02-14 10:03] LABS: Absolute Lymphocyte Count 1.88 X10^3/uL (0.83-4.51); Absolute Neutrophil Count 6.2 X10^3/uL (2.0-7.7); Basophil# 0.08 X10^3/uL; Basophil% 0.8 % (0-1); Eosinophil# 0.72 X10^3/uL; Eosinophils% 7.6 % (0-5); Hemoglobin 16.8 g/dL (13.0-16.5); Lymphocyte # 1.88 X10^3/ul (0.83-4.51); Lymphocyte % 19.7 % (19-41); Mean Corp Hgb Conc 32.9 g/dL (32-36); Mean Corpuscular Hgb 28.7 pg (27.0-32.0); Mean Corpuscular Volume 87.2 fL (80-94); Mean Platelet Vol. 12.3 fl (6.2-12.0); Monocyte# 0.63 X10^3/uL; Monocyte% 6.6 % (0-10); NRBC Flagged by Analyzer 0 % (0-5); Neutrophil # 6.16 X10^3/uL (2.7-7.7); Neutrophil % 64.7 % (47-70); Platelet Count 158 K/mm3 (150-450); RBC Distribution Width CV 15.9 % (11.6-14.6); RBC Distribution Width SD 49.6 fl (35.1-43.9); Red Blood Count 5.85 M/mm3 (4.6-6.2); White Blood Count 9.5 K/mm3 (4.4-11.0)
--- NOTE | 2023-02-14 10:05 | EDS_ITS ---
HPI History of Present Illness Chief Complaint: Weakness Narrative Narrative: 72-year-old male presenting with generalized weakness and fatigue for a week. Patient states he feels lightheaded and its nonvertiginous nature. He has mild nausea but is unable to hold down food and fluids. Patient states he drinks about 80 ounces of water daily. Patient denies any chest pain or shortness of breath. He does admit that he was recent admitted to the hospital for volume overload. He states has been placed on Lasix. He has been watching his water intake. He denies fever or chills. He denies cough productive of sputum. He denies urinary complaints. Patient states that he does have history of nonsustained V. tach, a flutter, A-fib, diabetes. Has been watching his blood sugars at home and has been between 150 and 210. [facility] Medical History (HFpEF) heart failure with preserved ejection fraction Aftercare following surgery of the circulatory system Atherosclerosis of [place] coronary artery of [place] heart without angina pectoris Atrial flutter Atrial flutter by electrocardiogram BPH (benign prostatic hyperplasia) CAD (coronary artery disease) CKD (chronic kidney disease) CVA (cerebral vascular accident) Diabetes mellitus Dizziness Essential (primary) hypertension History of DVT (deep vein thrombosis) History of non-ST elevation myocardial infarction (NSTEMI) Hyperlipidemia Hypothyroidism Ischemic stroke Left leg pain NSVT (nonsustained ventricular tachycardia) Obesity Open wound of scalp WILLIAN treated with BiPAP PAD (peripheral artery disease) Palpitations Peripheral neuropathy Stroke Thrombosis of left common femoral artery Thyroid disorder Home Medications metformin 500 mg tablet 1,000 mg PO QHS DM 03/19/17 [History Last Taken 10/27/22 18:30] losartan 25 mg tablet 25 mg PO DAILY BP #90 tabs 05/25/18 [Rx Last Taken 10/27/22 18:30] nitroglycerin 0.4 mg sublingual tablet 0.4 mg sublingual Q5-15M PRN chest pain #90 tabs 05/25/18 [Rx Last Taken Unknown] aspirin 81 mg chewable tablet 81 mg PO DAILY@0800 HEALTH MAINTENANCE 06/16/22 [History Last Taken 10/27/22 08:00] ezetimibe 10 mg tablet (Zetia) 10 mg PO DAILY DM 06/16/22 [History Last Taken 10/27/22 08:00] insulin human U-100 NPH-regulr 70-30 mix 100 unit/mL subcutaneous susp (Novolin 70/30 U-100 Insulin) 32 unit subcut QHS DM 06/16/22 [History Last Taken 06/15/22] insulin human U-100 NPH-regulr 70-30 mix 100 unit/mL subcutaneous susp (Novolin 70/30 U-100 Insulin) 40 unit subcut DAILY DM 06/16/22 [History Last Taken 06/16/22] isosorbide mononitrate 60 mg tablet,extended release 24 hr 60 mg PO DAILY HEART 06/16/22 [History Last Taken 10/27/22 08:00] pediatric multivit no.17-ferrous fumarate 15 mg iron chewable tablet 1 tab PO DAILY SUPPLEMENT 06/16/22 [History Last Taken 06/16/22] rivaroxaban 20 mg tablet (Xarelto) 20 mg PO DAILY blood thinner #30 tabs 06/19/22 [Rx Last Taken 10/27/22 18:30] tamsulosin 0.4 mg capsule 0.4 mg PO DAILY@1200 prostate 30 days #30 caps 06/19/22 [Rx Last Taken 10/27/22 18:30] levothyroxine 175 mcg tablet 200 mcg PO DAILY THYROID 07/02/22 [History Last Taken 10/27/22 20:55] furosemide 40 mg tablet (Lasix) 40 mg PO BID fluid retention 30 days #60 tabs 10/29/22 [Rx Last Taken Unknown] metoprolol tartrate 25 mg tablet 25 mg PO BID HEART/BLOOD PRESSURE #60 tabs 10/29/22 [Rx Last Taken 10/27/22 20:56] sennosides 8.6 mg-docusate sodium 50 mg tablet (Stool Softener-Stimulant Laxative) 2 tab PO BID PRN PRN Constipation #0 tabs 10/29/22 [Rx Last Taken Unknown] ascorbic acid (vitamin C) 1,000 mg tablet 1 g PO BID supplement 11/24/22 [History Last Taken Unknown] empagliflozin 25 mg tablet 12.5 mg PO DAILY diabetes 11/24/22 [History Last Taken Unknown] penicillin V potassium 500 mg tablet 500 mg PO DAILY infection 02/14/23 [History Last Taken Unknown] Allergy/AdvReac Type Severity Reaction Status Date / Time atorvastatin [From Lipitor] AdvReac Severe mylagia Verified 02/14/23 09:21 lanolin AdvReac Severe Rash Verified 02/14/23 09:21 Family History Sister CAD (coronary artery disease) Diabetes Brother CAD (coronary artery disease) Father Asthma Mother Cancer lung Surgical History History of coronary artery bypass surgery (~01/21/17) Hx of cardiac catheterization (~01/19/17) S/P coronary artery stent placement (~04/05/18) Social History household members: spouse Smoking Status: Former smoker how long ago did patient quit smokin alcohol intake: never substance use type: does not use caffeine: Yes Type: coffee Number of servings: 3 what type of physical activity do you participate in: none seatbelt use: always do you feel safe at home: Yes ROS ROS ED Constitutional Constitutional ED: Denies chills, fever(s) or sweats Eyes Eyes: Denies blurry vision or change in vision ENT ENT ED: Denies ear pain or sore throat Cardiovascular Cardiovascular: Reports palpitations; Denies chest pain or racing heartbeat Respiratory/Chest Respiratory/Chest: Denies cough, dyspnea or sputum Gastrointestinal Gastrointestinal: Denies abdominal pain, constipation, diarrhea, nausea or vomiting Genitourinary Genitourinary ED: Denies dysuria, hematuria or urinary frequency Musculoskeletal Musculoskeletal: Denies arthralgias, myalgias or neck pain Integumentary Denies abscess, Abrasions or rash Neurologic Neurologic: Denies headache(s), paresthesias or weakness Psychiatric Psychiatric: Denies anxiety, depression, suicidal ideation or suicidal thoughts Endocrine Endocrinology: Denies polydipsia or polyuria EXAM Physical Exam Const Vital Signs: 02/14/23 09:14 02/14/23 09:22 02/14/23 10:21 Temperature 96.9 F L Temperature Source Temporal Pulse Rate 72 Pulse Rate [Lying] 56 L Pulse Rate [Sitting (for 1 minute prior to obtaining)] 55 L Pulse Rate [Standing (for 1 minute prior to obtaining)] 65 Respiratory Rate 16 Respiratory Effort Normal Non-Labored Respiratory Pattern Normal Blood Pressure 146/88 H Blood Pressure [Lying] 148/60 H Blood Pressure [Sitting (for 1 minute prior to obtaining)] 146/70 H Blood Pressure [Standing (for 1 minute prior to obtaining)] 125/65 H Blood Pressure Mean 107 Blood Pressure Mean [Lying] 89 Blood Pressure Mean [Sitting (for 1 minute prior to obtaining)] 95 Blood Pressure Mean [Standing (for 1 minute prior to obtaining)] 85 Pulse Ox 98 Oxygen Delivery Method Room Air Oxygen Flow Rate (L/min) 02/14/23 11:14 Temperature Temperature Source Pulse Rate 44 L Pulse Rate [Lying] Pulse Rate [Sitting (for 1 minute prior to obtaining)] Pulse Rate [Standing (for 1 minute prior to obtaining)] Respiratory Rate 12 Respiratory Effort Respiratory Pattern Blood Pressure 131/43 H Blood Pressure [Lying] Blood Pressure [Sitting (for 1 minute prior to obtaining)] Blood Pressure [Standing (for 1 minute prior to obtaining)] Blood Pressure Mean 72 Blood Pressure Mean [Lying] Blood Pressure Mean [Sitting (for 1 minute prior to obtaining)] Blood Pressure Mean [Standing (for 1 minute prior to obtaining)] Pulse Ox 94 Oxygen Delivery Method Nasal Cannula Oxygen Flow Rate (L/min) 2 Positive well nourished General Appearance ED: NAD HEENT Reports moist mucous membranes Eyes PERRL and EOMs intact bilaterally Neck no lymphadenopathy Chest Wall inspection of chest normal and palpation of chest normal Resp normal respiratory effort and clear to auscultation bilaterally Auscultation: Negative for rales, rhonchi or wheezes Cardio regular rate and regular rhythm GI normal to inspection, nondistended, normoactive bowel sounds Neuro oriented x3 and CN's II-XII intact bilaterally Sensorium / Orientation: alert Motor Exam: strength 5/5 throughout Psych mental status grossly normal Skin no rashes or lesions noted and no wounds MDM MDM MDM Narrative Medical decision making narrative: 72-year-old male presenting with fatigue, lightheadedness, generalized weakness. He denies chest pain or shortness of breath. Patient states he is currently on Lasix for retained water. He has history of CHF. Differential includes dysrhythmia, ACS, CHF, pneumonia, dehydration, electrolyte abnormalities, paroxysmal a flutter/A-fib, NSVT, pancreatitis, GERD, gastritis. EKG will be obtained to assess for dysrhythmia/ischemia. High-sensitivity troponin will also be obtained. Chest to rule out pneumonia or CHF. CBC to assess white blood cell count, hemoglobin, platelets. CMP to assess liver function, renal function, electrolytes glucose. Lipase to assess for pancreatitis. The previous medical record shows that Dr. Smith had a permanent pacemaker for the patient however the patient had reported to him that he is less dizzy than usual. Patient decided to hold off on this for the time being. Discussed with Dr. Smith recommended that I admit the patient and have Dr. Veliz consulted for pacemaker placement. I spoke with Dr. Valdivia who requested me to call Dr. Veliz regarding the patient. He Dr. Veliz states that he will be in the hospital this week and we able to be consulted for placement of a pacemaker. CBC was unremarkable. CMP showed normal liver function. Creatinine near baseline at 1.45. Electrolytes are normal. Chest x-ray my interpretation shows no acute process. The radiologist interprets this and agrees high-sensitivity troponin is 42. Initial EKG on my interpretation sinus rhythm with a ventricular rate of 53 bpm with right bundle branch block noted. Occasional PVC's. Patient found to be orthostatic and after his orthostatic vital signs were taken he went into a bradycardic rhythm strip to be heart block on the monitor. This was all discussed with cardiology. Patient admitted to the medical floor. Pression: 1. Lightheadedness 2. Orthostatic hypotension 3. Sick sinus syndrome Lab Data Labs: Laboratory Results - last 24 hr 02/14/23 02/14/23 09:31 10:20 WBC 9.5 RBC 5.85 Hgb 16.8 H Hct 51.0 MCV 87.2 MCH 28.7 MCHC 32.9 RDW Std Deviation 49.6 H RDW Coeff of [place] 15.9 H Plt Count 158 MPV 12.3 H Immature Gran % (Auto) 0.600 Neut % (Auto) 64.7 Lymph % (Auto) 19.7 [place] % (Auto) 6.6 Eos % (Auto) 7.6 H Baso % (Auto) 0.8 Absolute Neuts (auto) 6.2 Absolute Lymphs (auto) 1.88 Nucleated RBC % 0 Sodium Cancelled 141 Potassium Cancelled 3.5 Chloride Cancelled 105 Carbon Dioxide Cancelled 30.0 Anion Gap Cancelled 6 BUN Cancelled 37 H Creatinine Cancelled 1.45 H Estim Creat Clear Calc Cancelled 52.04 Est GFR (MDRD) Af Amer Cancelled 61 Est GFR (MDRD) Non-Af Cancelled 51 L BUN/Creatinine Ratio Cancelled 25.5 H Glucose Cancelled 79 Calcium Cancelled 8.6 Total Bilirubin Cancelled 0.80 AST Cancelled 18 ALT Cancelled 21 Alkaline Phosphatase Cancelled 67 Troponin I High Sens Cancelled 42 Total Protein Cancelled 7.8 Albumin Cancelled 3.1 L Globulin Cancelled 4.7 H Albumin/Globulin Ratio Cancelled 0.7 L Lipase Cancelled 34 Radiography Diagnostic Testing: Clinical Impression(s) from Imaging Studies Chest X-Ray 02/14/23 10:00 IMPRESSION: No acute pulmonary process Electronically Signed: Bonifacio Smyth MD at 11:03 EST , Discharge Plan Disposition Disposition: Acute Care Hospital [facility] Discharge Date/Time: 02/14/23 13:03
--- NOTE | 2023-02-14 10:16 | NURSING ---
PER LAB, CHEMISTRIES HEMOLIZED
[2023-02-14 10:49] LABS: ALB/GLOB Ratio 0.7 RATIO (0.9-2.4); AST(SGOT) 18 U/L (15-37); Alanine Aminotransfer ALT/SGPT 21 U/L (16-61); Albumin, Serum 3.1 g/dL (3.2-5.0); Alkaline Phosphatase 67 U/L (45-117); Anion Gap 6 (5-15); BUN 37 mg/dL (7-18); BUN/Creat Ratio 25.5 RATIO (10-20); Calcium,Total 8.6 mg/dL (8.5-10.1); Chloride 105 mmol/L (98-107); Creatinine, Serum 1.45 mg/dL (0.70-1.30); EST Glomerular Filtration Rate 51 mL/min (>60); Est Glom Filt Rate - Afr Amer 61 mL/min (>60); Estimated Creatinine Clearance 52.04 ml/min; Globulin 4.7 g/dL (2.2-4.2); Glucose 79 mg/dL (74-106); Lipase 34 U/L (13-75); Potassium 3.5 mmol/L (3.5-5.1); Protein, Total 7.8 g/dL (6.4-8.2); Sodium Level 141 mmol/L (136-145); Troponin-I HS 42 pg/mL (3.0-78.0)
--- NOTE | 2023-02-14 11:13 | EKG12_ITS ---
Test Reason : Blood Pressure : / mmHG Vent. Rate : 053 BPM Atrial Rate : 000 BPM P-R Int : 000 ms QRS Dur : 158 ms QT Int : 500 ms P-R-T Axes : 000 -70 131 degrees QTc Int : 469 ms Wide QRS rhythm with Fusion complexes Right bundle branch block Left anterior fascicular block Bifascicular block Lateral infarct , age undetermined Cannot rule out Inferior infarct (masked by fascicular block?) , age undetermined Abnormal ECG Confirmed by FABIOLA WILLETT, EDWIN ([id number]), editor sound CHANNING LLOYD ([id number]) on 02/15/2023 12:13:37 PM Referred By: Confirmed By:EDWIN HICKS MD
--- NOTE | 2023-02-14 11:46 | NURSING ---
DR KAIT SWANSON
--- NOTE | 2023-02-14 11:56 | NURSING ---
PCU KITTOE ORTHOSTATIC HYPOTENSION, NEAR SYNCOPE
--- NOTE | 2023-02-14 11:57 | NURSING ---
ICU NOT PCU
--- NOTE | 2023-02-14 12:07 | PCM.HP.STD ---
[facility] - General General Date of Admission: 02/14/23 Date of Service: 02/14/23 Chief Complaint: Generalized weakness HPI Narrative MICKY ABDI, is a 72 M who presents presented with generalized weakness.. Patient has not been feeling himself. Patient reports feeling lightheaded on multiple occasions. Patient has history of significant cardiac arrhythmia including nonsustained VT as well as intermittent episodes of second-degree AV block. Patient had apparently been offered pacemaker in the past he declined. In view of worsening symptoms patient presented to the emergency department. Was placed on telemetry continuous telemetry monitoring and was found to have bradycardia as well as frequent PVCs, bigeminy and trigeminy's. The senior [employer] consultant on-call Dr. Smith was notified recommended admission for possible pacemaker placement in a.m. [facility] Medical History (HFpEF) heart failure with preserved ejection fraction Aftercare following surgery of the circulatory system Atherosclerosis of [place] coronary artery of [place] heart without angina pectoris Atrial flutter Atrial flutter by electrocardiogram BPH (benign prostatic hyperplasia) CAD (coronary artery disease) CKD (chronic kidney disease) CVA (cerebral vascular accident) Diabetes mellitus Dizziness Essential (primary) hypertension History of DVT (deep vein thrombosis) History of non-ST elevation myocardial infarction (NSTEMI) Hyperlipidemia Hypothyroidism Ischemic stroke Left leg pain NSVT (nonsustained ventricular tachycardia) Obesity Open wound of scalp WILLIAN treated with BiPAP PAD (peripheral artery disease) Palpitations Peripheral neuropathy Stroke Thrombosis of left common femoral artery Thyroid disorder Home Medications metformin 500 mg tablet 1,000 mg PO QHS DM 03/19/17 [History Last Taken 10/27/22 18:30] losartan 25 mg tablet 25 mg PO DAILY BP #90 tabs 05/25/18 [Rx Last Taken 10/27/22 18:30] nitroglycerin 0.4 mg sublingual tablet 0.4 mg sublingual Q5-15M PRN chest pain #90 tabs 05/25/18 [Rx Last Taken Unknown] aspirin 81 mg chewable tablet 81 mg PO DAILY@0800 HEALTH MAINTENANCE 06/16/22 [History Last Taken 10/27/22 08:00] ezetimibe 10 mg tablet (Zetia) 10 mg PO DAILY DM 06/16/22 [History Last Taken 10/27/22 08:00] insulin human U-100 NPH-regulr 70-30 mix 100 unit/mL subcutaneous susp (Novolin 70/30 U-100 Insulin) 32 unit subcut QHS DM 06/16/22 [History Last Taken 06/15/22] insulin human U-100 NPH-regulr 70-30 mix 100 unit/mL subcutaneous susp (Novolin 70/30 U-100 Insulin) 40 unit subcut DAILY DM 06/16/22 [History Last Taken 06/16/22] isosorbide mononitrate 60 mg tablet,extended release 24 hr 60 mg PO DAILY HEART 06/16/22 [History Last Taken 10/27/22 08:00] pediatric multivit no.17-ferrous fumarate 15 mg iron chewable tablet 1 tab PO DAILY SUPPLEMENT 06/16/22 [History Last Taken 06/16/22] rivaroxaban 20 mg tablet (Xarelto) 20 mg PO DAILY #30 tabs 06/19/22 [Rx Last Taken 10/27/22 18:30] tamsulosin 0.4 mg capsule 0.4 mg PO DAILY@1200 30 days #30 caps 06/19/22 [Rx Last Taken 10/27/22 18:30] levothyroxine 175 mcg tablet 200 mcg PO DAILY THYROID 07/02/22 [History Last Taken 10/27/22 20:55] furosemide 40 mg tablet (Lasix) 40 mg PO BID 30 days #60 tabs 10/29/22 [Rx Last Taken Unknown] metoprolol tartrate 25 mg tablet 25 mg PO BID HEART/BLOOD PRESSURE #60 tabs 10/29/22 [Rx Last Taken 10/27/22 20:56] sennosides 8.6 mg-docusate sodium 50 mg tablet (Stool Softener-Stimulant Laxative) 2 tab PO BID PRN PRN Constipation #0 tabs 10/29/22 [Rx Last Taken Unknown] ascorbic acid (vitamin C) 1,000 mg tablet 1 g PO BID 11/24/22 [History Last Taken Unknown] empagliflozin 25 mg tablet 12.5 mg PO DAILY 11/24/22 [History Last Taken Unknown] Allergy/AdvReac Type Severity Reaction Status Date / Time atorvastatin [From Lipitor] AdvReac Severe mylagia Verified 02/14/23 09:21 lanolin AdvReac Severe Rash Verified 02/14/23 09:21 Family History Sister CAD (coronary artery disease) Diabetes Brother CAD (coronary artery disease) Father Asthma Mother Cancer lung Surgical History History of coronary artery bypass surgery (~01/21/17) Hx of cardiac catheterization (~01/19/17) S/P coronary artery stent placement (~04/05/18) Social History household members: spouse Smoking Status: Former smoker how long ago did patient quit smokin alcohol intake: never substance use type: does not use caffeine: Yes Type: coffee Number of servings: 3 what type of physical activity do you participate in: none seatbelt use: always do you feel safe at home: Yes ROS ROS Narrative GENERAL: denies fever, chills, night sweats, weight loss, anorexia HEENT: denies headache, sinus congestion, or drainage, dysphagia RESPIRATORY: denies cough, sputum production, shortness of breath, CARDIAC: denies chest pain, palpitations, orthopnea, PND GASTROINTESTINAL: denies abdominal pain, nausea, vomiting, melena, GENITOURINARY: denies dysuria, urgency, frequency, heamaturia EXTREMITY: denies swelling MUSCULOSKELETAL: denies current joint pain or tenderness NEUROLOGIC: denies focal numbness, weakness, tingling HEMATOLOGIC: denies easy bruising and/or hemorrhage INTEGUMENT: denies rashes PSYCHIATRIC: denies suicidal or homicidal ideation Vital Signs Vital Signs Vital Signs: 02/14/23 09:14 02/14/23 09:22 02/14/23 10:21 Temperature 96.9 F L Temperature Source Temporal Pulse Rate 72 Pulse Rate [Lying] 56 L Pulse Rate [Sitting (for 1 minute prior to obtaining)] 55 L Pulse Rate [Standing (for 1 minute prior to obtaining)] 65 Respiratory Rate 16 Respiratory Effort Normal Non-Labored Respiratory Pattern Normal Blood Pressure 146/88 H Blood Pressure [Lying] 148/60 H Blood Pressure [Sitting (for 1 minute prior to obtaining)] 146/70 H Blood Pressure [Standing (for 1 minute prior to obtaining)] 125/65 H Blood Pressure Mean 107 Blood Pressure Mean [Lying] 89 Blood Pressure Mean [Sitting (for 1 minute prior to obtaining)] 95 Blood Pressure Mean [Standing (for 1 minute prior to obtaining)] 85 Pulse Ox 98 Oxygen Delivery Method Room Air Oxygen Flow Rate (L/min) 02/14/23 11:14 Temperature Temperature Source Pulse Rate 44 L Pulse Rate [Lying] Pulse Rate [Sitting (for 1 minute prior to obtaining)] Pulse Rate [Standing (for 1 minute prior to obtaining)] Respiratory Rate 12 Respiratory Effort Respiratory Pattern Blood Pressure 131/43 H Blood Pressure [Lying] Blood Pressure [Sitting (for 1 minute prior to obtaining)] Blood Pressure [Standing (for 1 minute prior to obtaining)] Blood Pressure Mean 72 Blood Pressure Mean [Lying] Blood Pressure Mean [Sitting (for 1 minute prior to obtaining)] Blood Pressure Mean [Standing (for 1 minute prior to obtaining)] Pulse Ox 94 Oxygen Delivery Method Nasal Cannula Oxygen Flow Rate (L/min) 2 Weight Weight: 104.099 kg Body Mass Index (BMI) 30.2 Physical Exam Narrative GENERAL: cooperative HEENT: Atraumatic; normocephalic EYES; Anicteric, Normal Conjunctiva NECK; supple, normal thyroid, RESPIRATORY: Diminished to auscultation CARDIOVASCULAR: Irregularly irregular GI: soft, normoactive bowel sounds, : No Renal angle tenderness; EXTREMITIES: edema, no clubbing, MUSCULOSKELETAL: no muscle wasting NEURO: Awake; no lateralizing signs. SKIN: No Rash PSYCH; Flat affect Results Lab / Micro Data 02/14/23 09:31 02/14/23 10:20 Labs: Laboratory Results - last 24 hr 02/14/23 09:31: WBC 9.5, RBC 5.85, Hgb 16.8 H, Hct 51.0, MCV 87.2, MCH 28.7, MCHC 32.9, RDW Std Deviation 49.6 H, RDW Coeff of [place] 15.9 H, Plt Count 158, MPV 12.3 H, Immature Gran % (Auto) 0.600, Neut % (Auto) 64.7, Lymph % (Auto) 19.7, [place] % (Auto) 6.6, Eos % (Auto) 7.6 H, Baso % (Auto) 0.8, Absolute Neuts (auto) 6.2, Absolute Lymphs (auto) 1.88, Nucleated RBC % 0, Sodium Cancelled, Potassium Cancelled, Chloride Cancelled, Carbon Dioxide Cancelled, Anion Gap Cancelled, BUN Cancelled, Creatinine Cancelled, Estim Creat Clear Calc Cancelled, Est GFR (MDRD) Af Amer Cancelled, Est GFR (MDRD) Non-Af Cancelled, BUN/Creatinine Ratio Cancelled, Glucose Cancelled, Calcium Cancelled, Total Bilirubin Cancelled, AST Cancelled, ALT Cancelled, Alkaline Phosphatase Cancelled, Troponin I High Sens Cancelled, Total Protein Cancelled, Albumin Cancelled, Globulin Cancelled, Albumin/Globulin Ratio Cancelled, Lipase Cancelled 02/14/23 10:20: Sodium 141, Potassium 3.5, Chloride 105, Carbon Dioxide 30.0, Anion Gap 6, BUN 37 H, Creatinine 1.45 H, Estim Creat Clear Calc 52.04, Est GFR (MDRD) Af Amer 61, Est GFR (MDRD) Non-Af 51 L, BUN/Creatinine Ratio 25.5 H, Glucose 79, Calcium 8.6, Total Bilirubin 0.80, AST 18, ALT 21, Alkaline Phosphatase 67, Troponin I High Sens 42, Total Protein 7.8, Albumin 3.1 L, Globulin 4.7 H, Albumin/Globulin Ratio 0.7 L, Lipase 34 Imagaing Radiology Impression Chest X-Ray 02/14/23 10:00 IMPRESSION: No acute pulmonary process Electronically Signed: Bonifacio Smyth MD at 11:03 EST Reading Location ID and State: [facility] , Service support , Assessment & Plan Assessment/Plan (1) Sick sinus syndrome: PLAN: Plan Patient is a 72-year-old gentleman with multiple comorbidities admitted with progressive generalized weakness lightheadedness. Found to have multiple cardiac arrhythmias on telemetry monitoring in the ED admitted for subsequent management in house 1. Cardiac arrhythmia ? Patient has history of nonsustained VT, paroxysmal A-fib/flutter, as well as second-degree AV block. With patient being symptomatic patient admitted to a monitored bed consultation placed to cardiology plan is for patient to undergo pacemaker placement in a.m. patient will be kept NPO. Case was discussed with Dr. Smith prior to patient being admitted 2. Chronic congestive heart failure with preserved ejection fraction ? Currently euvolemic. Echo from 06/17/2022 demonstrated EF of 55%. 3. Coronary artery disease ? With previous PCI and CABG 4. Diabetes mellitus type II -patient's oral hypoglycemics held. Placed on long acting insulin, Accu-Cheks a.c. and at bedtime and covered with sliding scale insulin 5. Hypothyroidism - Patient is on levothyroxine home dose continued 6. History of left lower extremity DVT ? With previous thrombectomy patient is on Xarelto 7. History of CVA ? Patient is on antiplatelet therapy with aspirin 8. BPH ? Patient is on Flomax did continue 9. Peripheral arterial disease ? Previous thrombosis involving the left femoral artery 10. Class II obesity with BMI of 32.4 ? Complicating care weight loss advised 11. Dyslipidemia ? Patient is on Zetia 12. Obstructive sleep apnea ? Patient is on CPAP at night consistent use encouraged 13. Chronic kidney disease stage III -Kidney function at baseline 14. DVT prophylaxis ? On Xarelto Time spent in the patient's overall evaluation,decision-making process, review of diagnostic data, adjustment of management, discussion with other providers, nursing nursing and ancillary staff involved in patient's care documentation, 75 Minutes Advance planning; did discuss with the patient and family regarding advanced directives as well as CODE STATUS. Did explain the various scenarios involved ( FULL CODE, DNR CCA, DNR CCA with no intubation, and DNR CC and what each meant) patient elected to be DNR CCA no intubation. Order was placed. Time spent on discussion 18 minutes. Charges/Coding Visit Charges Inpatient E&M: 28260 Init Hosp L3 Procedures Hospitalists Procedures: 38572 Advncd Care Plan 30 Min
[2023-02-14] MEDS: 0.9% Normal Saline (1000mL) 1,000 ML 50 ML IV (13:15)
[2023-02-14] MEDS: 0.9% Saline Lock 10 ML Syringe IV (13:15)
[2023-02-14 13:40] LABS: Bedside Glucose 78 mg/dL (74-106)
[2023-02-14 16:22] LABS: Bedside Glucose 111 mg/dL (74-106)
[2023-02-14] MEDS: Insulin Lispro 100 UNIT/ML INSULN.PEN SC (21:07)
[2023-02-14 21:29] LABS: Bedside Glucose 181 mg/dL (74-106)
[2023-02-15] VITALS (19 sets, daily range): BP systolic 130–162; BP diastolic 49–109; PULSE 50–69; RESP 10–17; TEMP 36.2–37; O2SAT 92–98; BMI 29.7
[2023-02-15 04:44] LABS: Absolute Lymphocyte Count 1.83 X10^3/uL (0.83-4.51); Absolute Neutrophil Count 6.7 X10^3/uL (2.0-7.7); Basophil# 0.05 X10^3/uL; Basophil% 0.5 % (0-1); Eosinophil# 0.49 X10^3/uL; Hematocrit 46.8 % (40-54); Hemoglobin 15.2 g/dL (13.0-16.5); Lymphocyte # 1.83 X10^3/ul (0.83-4.51); Lymphocyte % 18.5 % (19-41); Mean Corp Hgb Conc 32.5 g/dL (32-36); Mean Corpuscular Hgb 29.1 pg (27.0-32.0); Mean Corpuscular Volume 89.7 fL (80-94); Monocyte# 0.76 X10^3/uL; Monocyte% 7.7 % (0-10); NRBC Flagged by Analyzer 0 % (0-5); Neutrophil # 6.71 X10^3/uL (2.7-7.7); Neutrophil % 67.8 % (47-70); Platelet Count 167 K/mm3 (150-450); RBC Distribution Width CV 15.8 % (11.6-14.6); RBC Distribution Width SD 51.6 fl (35.1-43.9); Red Blood Count 5.22 M/mm3 (4.6-6.2); White Blood Count 9.9 K/mm3 (4.4-11.0)
[2023-02-15 05:12] LABS: Anion Gap 6 (5-15); BUN 31 mg/dL (7-18); BUN/Creat Ratio 20.7 RATIO (10-20); Calcium,Total 8.6 mg/dL (8.5-10.1); Chloride 108 mmol/L (98-107); EST Glomerular Filtration Rate 49 mL/min (>60); Est Glom Filt Rate - Afr Amer 59 mL/min (>60); Estimated Creatinine Clearance 50.31 ml/min; Glucose 137 mg/dL (74-106); Magnesium 2.2 mg/dL (1.6-2.6); Phosphorus 3.3 mg/dL (2.5-4.9); Potassium 3.9 mmol/L (3.5-5.1); Sodium Level 142 mmol/L (136-145)
--- NOTE | 2023-02-15 07:25 | PCM.CONS.C ---
Assessment & Plan Assessment/Plan (1) Bifascicular bundle branch block: PLAN: The patient appears to have symptomatic bifascicular block. I have suggested to him as before that he will likely need a permanent pacemaker. Risk benefits alternatives have been explained to him he understands and agrees to proceed. (2) Sick sinus syndrome: PLAN: He does appear to have sick sinus syndrome. And the recommendation at this time will be to hold his beta-kiah and for him to proceed with a permanent pacemaker. Depending on the findings further recommendations will be made. (3) Atrial flutter: PLAN: He does have a previous history of atrial flutter. He is maintaining sinus rhythm at this time we will continue him on the current medical therapy. His Xarelto will be held while he undergoes a permanent pacemaker implantation. (4) CAD (coronary artery disease): PLAN: He does have a history of coronary artery disease and the plan will be to continue the current medical therapy at this particular time. (5) Essential (primary) hypertension: PLAN: His blood pressure appears to be under good control at this particular time I would not necessarily make changes at this particular time. Thank you for allowing me to participate in the care of your patient. Please don't hesitate to call if any issues arise. HPI Consult Data Date of Consult: 02/15/23 HPI Narrative HPI Narrative: MICKY ABDI, is a 72 M who presents to the emergency room complaining of generalized weakness. He does have a significant coronary artery history with coronary bypass surgery in 2017 with a THRASHER to the LAD saphenous vein graft to the posterolateral branch and saphenous vein graft to obtuse marginal branch. He also had a cardiomyopathy. In 2019 he underwent a cardiac catheterization which demonstrated patent THRASHER to the LAD but occluded saphenous vein grafts. Medical therapy was recommended. He underwent PCI of the ramus intermedius as well as the mid circumflex artery. He has also had intermittent periods of feeling lightheaded on multiple occasions as well as Holter monitors which have demonstrated intermittent second-degree AV block. At the last visit he was seen by his primary yarding engineer who recommended a permanent pacemaker but he declined. This time he presented to the emergency room noted to have the same and was noted to have a left anterior fascicular block, first-degree AV block, and a right bundle branch block with premature ventricular complexes. Cardiology was called for further evaluation and management his primary yarding engineer was called who recommended a permanent pacemaker implantation. He does also have a history of paroxysmal atrial fibrillation flutter. [facility] Medical History (HFpEF) heart failure with preserved ejection fraction Aftercare following surgery of the circulatory system Atherosclerosis of [place] coronary artery of [place] heart without angina pectoris Atrial flutter Atrial flutter by electrocardiogram BPH (benign prostatic hyperplasia) CAD (coronary artery disease) CKD (chronic kidney disease) CVA (cerebral vascular accident) Diabetes mellitus Dizziness Essential (primary) hypertension History of DVT (deep vein thrombosis) History of non-ST elevation myocardial infarction (NSTEMI) Hyperlipidemia Hypothyroidism Ischemic stroke Left leg pain NSVT (nonsustained ventricular tachycardia) Obesity Open wound of scalp WILLIAN treated with BiPAP PAD (peripheral artery disease) Palpitations Peripheral neuropathy Stroke Thrombosis of left common femoral artery Thyroid disorder Home Medications metformin 500 mg tablet 1,000 mg PO QHS DM 03/19/17 [History Last Taken 10/27/22 18:30] losartan 25 mg tablet 25 mg PO DAILY BP #90 tabs 05/25/18 [Rx Last Taken 10/27/22 18:30] nitroglycerin 0.4 mg sublingual tablet 0.4 mg sublingual Q5-15M PRN chest pain #90 tabs 05/25/18 [Rx Last Taken Unknown] aspirin 81 mg chewable tablet 81 mg PO DAILY@0800 HEALTH MAINTENANCE 06/16/22 [History Last Taken 10/27/22 08:00] ezetimibe 10 mg tablet (Zetia) 10 mg PO DAILY DM 06/16/22 [History Last Taken 10/27/22 08:00] insulin human U-100 NPH-regulr 70-30 mix 100 unit/mL subcutaneous susp (Novolin 70/30 U-100 Insulin) 32 unit subcut QHS DM 06/16/22 [History Last Taken 06/15/22] insulin human U-100 NPH-regulr 70-30 mix 100 unit/mL subcutaneous susp (Novolin 70/30 U-100 Insulin) 40 unit subcut DAILY DM 06/16/22 [History Last Taken 06/16/22] isosorbide mononitrate 60 mg tablet,extended release 24 hr 60 mg PO DAILY HEART 06/16/22 [History Last Taken 10/27/22 08:00] pediatric multivit no.17-ferrous fumarate 15 mg iron chewable tablet 1 tab PO DAILY SUPPLEMENT 06/16/22 [History Last Taken 06/16/22] rivaroxaban 20 mg tablet (Xarelto) 20 mg PO DAILY blood thinner #30 tabs 06/19/22 [Rx Last Taken 10/27/22 18:30] tamsulosin 0.4 mg capsule 0.4 mg PO DAILY@1200 prostate 30 days #30 caps 06/19/22 [Rx Last Taken 10/27/22 18:30] levothyroxine 175 mcg tablet 200 mcg PO DAILY THYROID 07/02/22 [History Last Taken 10/27/22 20:55] furosemide 40 mg tablet (Lasix) 40 mg PO BID fluid retention 30 days #60 tabs 10/29/22 [Rx Last Taken Unknown] metoprolol tartrate 25 mg tablet 25 mg PO BID HEART/BLOOD PRESSURE #60 tabs 10/29/22 [Rx Last Taken 10/27/22 20:56] sennosides 8.6 mg-docusate sodium 50 mg tablet (Stool Softener-Stimulant Laxative) 2 tab PO BID PRN PRN Constipation #0 tabs 10/29/22 [Rx Last Taken Unknown] ascorbic acid (vitamin C) 1,000 mg tablet 1 g PO BID supplement 11/24/22 [History Last Taken Unknown] empagliflozin 25 mg tablet 12.5 mg PO DAILY diabetes 11/24/22 [History Last Taken Unknown] penicillin V potassium 500 mg tablet 500 mg PO DAILY infection 02/14/23 [History Last Taken Unknown] Allergy/AdvReac Type Severity Reaction Status Date / Time atorvastatin [From Lipitor] AdvReac Severe mylagia Verified 02/14/23 09:21 lanolin AdvReac Severe Rash Verified 02/14/23 09:21 Family History Sister CAD (coronary artery disease) Diabetes Brother CAD (coronary artery disease) Father Asthma Mother Cancer lung Surgical History History of coronary artery bypass surgery (~01/21/17) Hx of cardiac catheterization (~01/19/17) S/P coronary artery stent placement (~04/05/18) Social History household members: spouse Smoking Status: Former smoker how long ago did patient quit smokin alcohol intake: never substance use type: does not use caffeine: Yes Type: coffee Number of servings: 3 what type of physical activity do you participate in: none seatbelt use: always do you feel safe at home: Yes ROS Constitutional Constitutional: Denies fever(s) or weight loss Eyes Eyes: Reports systems reviewed and no addt'l complaints, except as documented ENT HEENT: Reports systems reviewed and no addt'l complaints, except as documented Cardiovascular Cardiovascular: Denies chest pain at rest, chest pain with activity, dyspnea at rest, dyspnea on exertion, edema, palpitations or paroxysmal nocturnal dyspnea Respiratory/Chest Respiratory/Chest: Denies dyspnea on exertion, productive cough, shortness of breath at rest or shortness of breath with exertion Gastrointestinal Gastrointestinal: Denies change in bowel habits, nausea, vomiting or weight changes Genitourinary Genitourinary: Denies difficulty urinating Musculoskeletal Musculoskeletal: Denies joint stiffness or muscle weakness Integumentary Integumentary: Denies lesions Neurologic Neurologic: Reports dizziness; Denies syncope Psychiatric Psychiatric: Denies anxiety Endocrine Endocrinology: Denies excessive sweating or fatigue Hematologic/Lymphatic Hematologic/Lymphatic: Denies anemia Allergic/Immunologic Allergic/Immunologic: Denies seasonal rhinorrhea Physical Exam Const alert, oriented x3 and no apparent distress General Appearance: cooperative HEENT hearing grossly normal bilaterally Head and Scalp: atraumatic Eyes EOMs intact bilaterally Neck General: normal visual inspection Chest inspection of chest normal and palpation of chest normal Resp normal respiratory effort Auscultation: clear to auscultation bilaterally Cardio regular rate, regular rhythm, S1 normal heart sound and S2 normal heart sound Jugular Venous Distention: JVD GI normal to inspection, nondistended, normoactive bowel sounds Extremity normal capillary refill and no pedal edema Peripheral Pulses: Yes pulses 2+ throughout and femoral pulses present Skin no rashes or lesions noted Neuro oriented x3 and CN's II-XII intact bilaterally Psych Appearance: grossly normal and appropriate Risk Stratification Risk Stratification Applicable: No Objective Data Vital Signs: Vital Signs Temp Pulse Resp BP Pulse Ox O2 Del Method O2 Flow Rate 97.2 F L 69 15 162/76 H 98 Nasal Cannula 2 02/15/23 04:00 02/15/23 06:00 02/15/23 06:00 02/15/23 06:00 02/15/23 06:00 02/15/23 06:00 02/15/23 06:00 Oxygen Flow Rate (L/min) 2 Oxygen Delivery Method Nasal Cannula Weight: 224 lb 10.417 oz Body Mass Index (BMI) 29.7 Intake & Output: Intake and Output for Last 24 Hours 02/13/23 02/14/23 02/15/23 23:59 23:59 23:59 Intake Total 2220 / 2220 690.83 / 690.83 Output Total 1050 / 1050 600 / 600 Balance 1170 / 1170 90.83 / 90.83 Lab / Micro Data 02/15/23 04:25 02/15/23 04:25 Labs: Laboratory Results - last 24 hr 02/14/23 09:31: WBC 9.5, RBC 5.85, Hgb 16.8 H, Hct 51.0, MCV 87.2, MCH 28.7, MCHC 32.9, RDW Std Deviation 49.6 H, RDW Coeff of [place] 15.9 H, Plt Count 158, MPV 12.3 H, Immature Gran % (Auto) 0.600, Neut % (Auto) 64.7, Lymph % (Auto) 19.7, [place] % (Auto) 6.6, Eos % (Auto) 7.6 H, Baso % (Auto) 0.8, Absolute Neuts (auto) 6.2, Absolute Lymphs (auto) 1.88, Nucleated RBC % 0, Sodium Cancelled, Potassium Cancelled, Chloride Cancelled, Carbon Dioxide Cancelled, Anion Gap Cancelled, BUN Cancelled, Creatinine Cancelled, Estim Creat Clear Calc Cancelled, Est GFR (MDRD) Af Amer Cancelled, Est GFR (MDRD) Non-Af Cancelled, BUN/Creatinine Ratio Cancelled, Glucose Cancelled, Calcium Cancelled, Total Bilirubin Cancelled, AST Cancelled, ALT Cancelled, Alkaline Phosphatase Cancelled, Troponin I High Sens Cancelled, Total Protein Cancelled, Albumin Cancelled, Globulin Cancelled, Albumin/Globulin Ratio Cancelled, Lipase Cancelled 02/14/23 10:20: Sodium 141, Potassium 3.5, Chloride 105, Carbon Dioxide 30.0, Anion Gap 6, BUN 37 H, Creatinine 1.45 H, Estim Creat Clear Calc 52.04, Est GFR (MDRD) Af Amer 61, Est GFR (MDRD) Non-Af 51 L, BUN/Creatinine Ratio 25.5 H, Glucose 79, Calcium 8.6, Total Bilirubin 0.80, AST 18, ALT 21, Alkaline Phosphatase 67, Troponin I High Sens 42, Total Protein 7.8, Albumin 3.1 L, Globulin 4.7 H, Albumin/Globulin Ratio 0.7 L, Lipase 34 02/14/23 13:20: POC Glucose 78 02/14/23 15:59: POC Glucose 111 H 02/14/23 21:03: POC Glucose 181 H 02/15/23 04:25: WBC 9.9, RBC 5.22, Hgb 15.2, Hct 46.8, MCV 89.7, MCH 29.1, MCHC 32.5, RDW Std Deviation 51.6 H, RDW Coeff of [place] 15.8 H, Plt Count 167, MPV 12.0, Immature Gran % (Auto) 0.500, Neut % (Auto) 67.8, Lymph % (Auto) 18.5 L, [place] % (Auto) 7.7, Eos % (Auto) 5.0, Baso % (Auto) 0.5, Absolute Neuts (auto) 6.7, Absolute Lymphs (auto) 1.83, Nucleated RBC % 0, Sodium 142, Potassium 3.9, Chloride 108 H, Carbon Dioxide 28.0, Anion Gap 6, BUN 31 H, Creatinine 1.50 H, Estim Creat Clear Calc 50.31, Est GFR (MDRD) Af Amer 59 L, Est GFR (MDRD) Non-Af 49 L, BUN/Creatinine Ratio 20.7 H, Glucose 137 H, Calcium 8.6, Phosphorus 3.3, Magnesium 2.2 Cardiology Labs/Tests 02/14/23 09:31: WBC 9.5, RBC 5.85, Hgb 16.8 H, Hct 51.0, MCV 87.2, MCH 28.7, MCHC 32.9, Plt Count 158, MPV 12.3 H, Immature Gran % (Auto) 0.600, Neut % (Auto) 64.7, Lymph % (Auto) 19.7, [place] % (Auto) 6.6, Eos % (Auto) 7.6 H, Baso % (Auto) 0.8, Absolute Neuts (auto) 6.2, Nucleated RBC % 0, Sodium Cancelled, Potassium Cancelled, Chloride Cancelled, Carbon Dioxide Cancelled, Anion Gap Cancelled, BUN Cancelled, Creatinine Cancelled, Est GFR (MDRD) Af Amer Cancelled, Est GFR (MDRD) Non-Af Cancelled, BUN/Creatinine Ratio Cancelled, Glucose Cancelled, Calcium Cancelled, Total Bilirubin Cancelled 02/14/23 10:20: Sodium 141, Potassium 3.5, Chloride 105, Carbon Dioxide 30.0, Anion Gap 6, BUN 37 H, Creatinine 1.45 H, Est GFR (MDRD) Af Amer 61, Est GFR (MDRD) Non-Af 51 L, BUN/Creatinine Ratio 25.5 H, Glucose 79, Calcium 8.6, Total Bilirubin 0.80 02/15/23 04:25: WBC 9.9, RBC 5.22, Hgb 15.2, Hct 46.8, MCV 89.7, MCH 29.1, MCHC 32.5, Plt Count 167, MPV 12.0, Immature Gran % (Auto) 0.500, Neut % (Auto) 67.8, Lymph % (Auto) 18.5 L, [place] % (Auto) 7.7, Eos % (Auto) 5.0, Baso % (Auto) 0.5, Absolute Neuts (auto) 6.7, Nucleated RBC % 0, Sodium 142, Potassium 3.9, Chloride 108 H, Carbon Dioxide 28.0, Anion Gap 6, BUN 31 H, Creatinine 1.50 H, Est GFR (MDRD) Af Amer 59 L, Est GFR (MDRD) Non-Af 49 L, BUN/Creatinine Ratio 20.7 H, Glucose 137 H, Calcium 8.6, Phosphorus 3.3, Magnesium 2.2 Rhythm: EKG: ECHO: Stress Test: Cardiac Cath: PCI: CT Surgery: Holter monitor: EPS: PPM: CXR: Chest CT Scan: Radiography Diagnostic Testing: Radiology Impression Chest X-Ray 02/14/23 10:00 IMPRESSION: No acute pulmonary process Electronically Signed: Bonifacio Smyth MD at 11:03 EST ,
[2023-02-15 08:12] LABS: Bedside Glucose 147 mg/dL (74-106)
[2023-02-15] MEDS: 0.9% Normal Saline (1000mL) 1,000 ML 50 ML IV (09:37)
--- NOTE | 2023-02-15 12:36 | CL.IE_ITS ---
Patient: MICKY ABDI Study Date: 02/15/2023 Performing: Baron Veliz MD : 1950 Age: 72 Gender: male PROCEDURES PERFORMED [id number])INITIAL PACER INSERT+DUAL LEADS INDICATIONS Mobitz (type II) AV block Sinoatrial node dysfunction/Sick sinus syndrome PROCEDURE DETAILS The patient was brought to the Catheterization Lab in the postabsorptive nonsedated state. Informed consent was obtained prior to the procedure. Local anesthetic was given subcutaneously to the left upper chest area with Lidocaine 2%. Access was achieved and a guidewire was advanced into the left subclavian vein. Incision was made to the left upper chest. PPM ventricular lead was inserted / positioned to right ventricular apex. PPM ventricular lead testing performed. PPM ventricular lead testing performed. The sheath was then removed. PPM atrial lead was inserted / positioned to the right atrial appendage. PPM atrial lead testing performed. The sheath was then removed. The Atrial lead sutured in place with 2-0 Silk. The Ventricular PM lead sutured in place with 2-0 Silk. Device pocket was irrigated with antibiotic. PPM generator was attached to the lead(s) and inserted into the pocket. PPM generator was then interrogated by the gis programmer. Subcutaneous closure was completed with 3-0 Vicryl. Skin closure was completed with 4-0 Vicryl. The patient tolerated the procedure well. Estimated Blood Loss: 10 ml's IMPLANTED / EX-PLANTED DEVICES IMPLANTED DEVICE(S): PPM Generator - Territory Account Representative: Modern Feed, Model # Essentio MRI DR Model L111 , Serial # [id number] PPM Atrial lead - Territory Account Representative: Modern Feed, Model # Ingevity 7841 , Serial # [id number] PPM Ventricular lead - Territory Account Representative: Modern Feed, Model # Ingevity 7842 , Serial # [id number] DEVICE PARAMETERS ATRIAL LEAD PARAMETERS: P wave- 5.6 (mV) threshold- 0.9 (V) impedence- 608 (OHMS) Current- 1.3 (mA) VENTRICULAR LEAD PARAMETERS: R wave- 14.4 (mV) Current- 0.6 (mA) threshold- 0.5 (V) impedence- 879 (OHMS) DEVICE PARAMETERS: Mode- DDDR Lower rate- 60 Upper rate- 130 CONCLUSIONS / RECOMMENDATIONS Device Conclusions: Successful implantation of a dual chamber pacemaker Device Recommendations: Follow up with Primary Care Physician PROCEDURE MEDICATIONS Fentanyl 50 mcg IV Versed 1 mg IV Versed 1 mg IV Fentanyl 50 mcg IV Oxygen: 2 L/min via nasal cannula Antibiotic given in appropriate timeframe. Ancef 2 Gm IV @ 02/15/2023 11:10:19 Signed By Baron Veliz MD On 02/15/2023 12:35:37 Baron Veliz MD
[2023-02-15 13:34] LABS: Bedside Glucose 122 mg/dL (74-106)
--- NOTE | 2023-02-15 13:35 | CASEMGMT ---
RN CM Face to Face with patient for initial transition planning/care coordination assessment. RN CM introduced self and role at [facility]. Patient lying in bed, alert and oriented. Patient willing to participate in assessment and is able to answer all questions appropriately. Care providers, pharmacy, and demographics verified. Patient wishes to discharge home, denies need for home health at this time. Patient states he has no further needs or concerns at this time. CM to follow for discharge planning needs that may arise. PCP: Manpreet Medina [place] Specialists: Keren nightman; Eliza Frame Feeder Preferred Pharmacy: [facility] [place] Prescription Benefit: yes Living Will/HPOA: none LNOK: Living Arrangements: Patient lives with in 2 story [facility] with 1 step to enter. Patient is independent at home Transportation: self, DME/HHC: Patient has walker, glucometer, and BP cuff at home. No previous HHC or SNF Disposition Plan: Patient to discharge home with family support and follow-up plans in place. Josefina DEXTER, RN, CM
--- NOTE | 2023-02-15 15:25 | CHAPLAIN ---
Type of Pastoral Visit _x__ Initial Visit ___ Follow-up Visit ___ On-call Visit ___ General Patient Visit ___ Spiritual Assessment ___ Family Conference ___ Bereavement ___ Rapid Response ___ Code Blue ___ Other (describe below) Pastoral Care Referral From _x__ Patient ___ Family ___ Nurse ___ Physician ___ Cigarette Catcher ___ Ultrasonic Hand Solderer ___ Other (describe below) Sacrament/Intervention _x__ Active listening ___ Anointing ___ Buddhism ___ Bereavement ___ Communion _x__ Estee exploration ___ ___ Life review _x__ Prayer ___ Reconciliation ___ Sacrament of Sick ___ Supportive presence ___ Wedding ___ Other (describe below) Pastoral Comments patient speaks of his estee in God and how he gives great praise for God's work in his body and life; pt gives some brief life review and continues to be positive and grateful; pt welcomes presence and prayer for support; pt has no other needs at this time
--- NOTE | 2023-02-15 15:31 | PCM.PN.HOSP ---
Reason for Visit Reason for Visit: Diagnoses Essential (primary) hypertension (02/14/23) Atherosclerotic heart disease of [place] coronary artery without angina pectoris (02/14/23) Bifascicular block (02/14/23) Unspecified atrial flutter (02/14/23) Sick sinus syndrome (02/14/23) Subjective Subjective Patient was seen and examined today, he had a pacemaker inserted today. Patient will be placed on most of his home medications today. Objective Data Objective Data Vital Signs: Vital Signs Temp Pulse Resp BP Pulse Ox O2 Del Method O2 Flow Rate 97.5 F L 68 14 147/59 H 94 Room Air 2 02/15/23 14:00 02/15/23 14:00 02/15/23 14:00 02/15/23 14:00 02/15/23 14:00 02/15/23 14:00 02/15/23 13:45 Oxygen Flow Rate (L/min) 2 Oxygen Delivery Method Room Air Weight: 101.9 kg Body Mass Index (BMI) 29.7 Intake & Output: Intake and Output for Last 24 Hours 02/13/23 02/14/23 02/15/23 23:59 23:59 23:59 Intake Total 2220 / 2220 1360.00 / 1360.00 Output Total 1050 / 1050 950 / 950 Balance 1170 / 1170 410.00 / 410.00 Lab / Micro Data 02/15/23 04:25 02/15/23 04:25 Labs: Laboratory Results - last 24 hr 02/14/23 15:59: POC Glucose 111 H 02/14/23 21:03: POC Glucose 181 H 02/15/23 04:25: WBC 9.9, RBC 5.22, Hgb 15.2, Hct 46.8, MCV 89.7, MCH 29.1, MCHC 32.5, RDW Std Deviation 51.6 H, RDW Coeff of [place] 15.8 H, Plt Count 167, MPV 12.0, Immature Gran % (Auto) 0.500, Neut % (Auto) 67.8, Lymph % (Auto) 18.5 L, [place] % (Auto) 7.7, Eos % (Auto) 5.0, Baso % (Auto) 0.5, Absolute Neuts (auto) 6.7, Absolute Lymphs (auto) 1.83, Nucleated RBC % 0, Sodium 142, Potassium 3.9, Chloride 108 H, Carbon Dioxide 28.0, Anion Gap 6, BUN 31 H, Creatinine 1.50 H, Estim Creat Clear Calc 50.31, Est GFR (MDRD) Af Amer 59 L, Est GFR (MDRD) Non-Af 49 L, BUN/Creatinine Ratio 20.7 H, Glucose 137 H, Calcium 8.6, Phosphorus 3.3, Magnesium 2.2 02/15/23 07:51: POC Glucose 147 H 02/15/23 13:16: POC Glucose 122 H Physical Exam Const alert, oriented x3, no apparent distress and healthy appearing General Appearance: cooperative, well kempt and well developed Orientation / Consciousness: awake, oriented to person, oriented to place and oriented to time HEENT normocephalic, head/scalp atraumatic and moist oral mucous membranes Eyes PERRL, EOMs intact bilaterally and conjunctivae normal Neck supple, no JVD, thyroid normal and no carotid bruits General: trachea midline Resp normal respiratory effort, no retractions, no use of accessory muscles and clear to auscultation bilaterally Auscultation: Negative for rales, rhonchi or wheezes Cardio S1 normal heart sound, S2 normal heart sound, no murmurs, no rub and no gallops Cardio Narrative: Heart rate and rhythm is regular with occasional PVCs GI normal to inspection, nondistended, normoactive bowel sounds, soft to palpation, non-tender and non-distended Extremity no clubbing, cyanosis or edema Skin no rashes or lesions noted General Skin Exam: no breakdown Neuro oriented x3, CN's II-XII intact bilaterally, no focal motor deficits and no sensory deficits noted Sensorium / Orientation: awake and alert Speech: speech normal Psych affect normal Assessment & Plan Assessment/Plan (1) 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 atrioventricular block: PLAN: Plan 1. Mobitz type II AV block/sinoatrial node dysfunction-status post pacemaker insertion today, patient will be placed on several of his home medications, Xarelto will be held at this time #2 coronary artery disease-patient will resume his aspirin and beta-kiah #3 chronic kidney disease stage IIIa-labs will be monitored as necessary #4 cerebrovascular disease-patient will remain on his present medication including aspirin and Zetia #5 type 2 diabetes-patient's blood sugars will be monitored, sliding scale insulin will be given as needed #6 hypothyroidism-patient is on Synthroid #7 essential hypertension-patient will remain on his home medications for blood pressure at this time #8 paroxysmal atrial flutter-patient will need to stay off his anticoagulation at this time due to his pacemaker insertion, he will remain on Lopressor Total clinical time spent by myself addressing the patient's medical issues, reviewing all of his data, and collaborating with patient's care team: 35 minutes Charges/Coding Visit Charges Inpatient E&M: 99444 Subs Hosp L2
[2023-02-15] MEDS: Insulin Lispro 100 UNIT/ML INSULN.PEN SC ×2 (17:41→20:08)
[2023-02-15 18:01] LABS: Bedside Glucose 198 mg/dL (74-106)
[2023-02-15] MEDS: Acetaminophen 325 MG Tablet 650 MG PO (18:41)
[2023-02-16 01:45] LABS: Bedside Glucose 165 mg/dL (74-106)
[2023-02-16 02:00] VITALS: BP 162/67; PULSE 60; RESP 15; TEMP 36.8; O2SAT 96
[2023-02-16 03:39] VITALS: BMI 30.1
[2023-02-16 03:52] LABS: Absolute Lymphocyte Count 1.94 X10^3/uL (0.83-4.51); Absolute Neutrophil Count 6.5 X10^3/uL (2.0-7.7); Basophil# 0.07 X10^3/uL; Basophil% 0.7 % (0-1); Eosinophil# 0.51 X10^3/uL; Eosinophils% 5.2 % (0-5); Hematocrit 50.5 % (40-54); Hemoglobin 16.1 g/dL (13.0-16.5); Lymphocyte # 1.94 X10^3/ul (0.83-4.51); Lymphocyte % 19.9 % (19-41); Mean Corp Hgb Conc 31.9 g/dL (32-36); Mean Corpuscular Hgb 28.8 pg (27.0-32.0); Mean Corpuscular Volume 90.2 fL (80-94); Mean Platelet Vol. 12.1 fl (6.2-12.0); Monocyte# 0.73 X10^3/uL; Monocyte% 7.5 % (0-10); NRBC Flagged by Analyzer 0 % (0-5); Neutrophil # 6.45 X10^3/uL (2.7-7.7); Neutrophil % 66.2 % (47-70); Platelet Count 170 K/mm3 (150-450); RBC Distribution Width CV 15.6 % (11.6-14.6); RBC Distribution Width SD 50.8 fl (35.1-43.9); White Blood Count 9.8 K/mm3 (4.4-11.0)
[2023-02-16 04:02] LABS: Anion Gap 6 (5-15); BUN 23 mg/dL (7-18); BUN/Creat Ratio 16.1 RATIO (10-20); Calcium,Total 8.9 mg/dL (8.5-10.1); Chloride 108 mmol/L (98-107); Creatinine, Serum 1.43 mg/dL (0.70-1.30); EST Glomerular Filtration Rate 52 mL/min (>60); Est Glom Filt Rate - Afr Amer 62 mL/min (>60); Estimated Creatinine Clearance 52.77 ml/min; Glucose 165 mg/dL (74-106); Sodium Level 142 mmol/L (136-145)
--- NOTE | 2023-02-16 05:15 | RAD_ITS ---
INDICATION: Post permanent ICD/Pacemaker -- inspiration/expiration. Arms Down. Wet read to EXAMINATION/TECHNIQUE: X-RAY - XR Chest 2 Views COMPARISON: Prior study dated: [2622. FINDINGS: LINES/DEVICES: Dual-chamber left-sided cardiac pacer device with leads tip in the right atrium and right ventricle. LUNGS: No consolidation, edema or effusion. No pneumothorax. MEDIASTINUM AND CARDIOVASCULAR STRUCTURES: Stable cardiac mediastinal silhouette. Status post median sternotomy. BONES AND SOFT TISSUES: No demonstrated acute osseous changes. RAD/Chest PA and Lateral IMPRESSION: 1. New left-sided dual-chamber cardiac pacer device in place. 2. No evidence of pneumothorax. 3. No active pulmonary disease. Electronically Signed: Xander Leos MD at 15:52 EST ,
[2023-02-16] MEDS: Levothyroxine 100 MCG Tablet 200 MCG PO (05:29)
[2023-02-16] MEDS: 0.9% Normal Saline (1000mL) 1,000 ML 50 ML IV (05:29)
[2023-02-16 06:00] VITALS: BP 181/78; PULSE 61; RESP 16; TEMP 37.1; O2SAT 94
--- NOTE | 2023-02-16 07:53 | PCM.DC ---
Discharge Instructions Diet Discharge Diet: 1800 Calorie Control Diet Activity Discharge Activity: Return to Normal Activity and - (Pacemaker instructions) Weight Bearing Status: Full weight bearing Follow Up Care Test Results: Test results from this visit will be discussed in further detail at your follow-up appointment, if applicable. Discharge Plan Admission Admit Date/Time: 02/14/23 11:51 Primary Reason for Your Visit: Second-degree AV block, sick sinus syndrome Attending Provider: Mynor Hartley Primary Care Provider: [facility],[place] Consulting Providers: James Valdivia; Moreno Smith Instructions Patient Instructions: Living with a Pacemaker, Pacemaker Implant Dc Discharge Orders/Prescriptions Prescriptions: New losartan 100 mg Tablet 100 mg PO DAILY Qty: 30 0RF Continued metformin 500 mg tablet 1,000 mg PO QHS nitroglycerin 0.4 mg tablet, sublingual 0.4 mg SUBLINGUAL Q5-15M PRN (Reason: chest pain) Qty: 90 6RF Rx Instructions: until response; do not exceed 3 doses per episode ascorbic acid (vitamin C) 1,000 mg tablet 1 g PO BID Novolin 70/30 U-100 Insulin 100 unit/mL (70-30) suspension 32 unit SUBCUT QHS Novolin 70/30 U-100 Insulin 100 unit/mL (70-30) suspension 40 unit SUBCUT DAILY pedi multivit 17-iron fumarate 15 mg iron Tablet,Chewable 1 tab PO DAILY Hold Instructions: Order Changed isosorbide mononitrate 60 mg tablet extended release 24 hr 60 mg PO DAILY aspirin 81 MG tablet,chewable 81 mg PO DAILY@0800 ezetimibe [Zetia] 10 mg tablet 10 mg PO DAILY tamsulosin 0.4 mg Capsule 0.4 mg PO DAILY@1200 30 Days Qty: 30 0RF levothyroxine 175 mcg tablet 200 mcg PO DAILY sennosides-docusate sodium [Stool Softener-Stimulant Laxat] 8.6-50 mg Tablet 2 tab PO BID PRN PRN (Reason: Constipation) Qty: 0 0RF furosemide [Lasix] 40 mg tablet 40 mg PO BID 30 Days Qty: 60 2RF Rx Instructions: Take furosemide 80 mg at 10 AM if increased leg swelling or weight gain 5 pounds in 1 week. metoprolol tartrate 25 mg tablet 25 mg PO BID Qty: 60 11RF Rx Instructions: Hold for heart less than 50 or systolic blood pressure less than 100 mmHg. empagliflozin 25 mg tablet 12.5 mg PO DAILY penicillin V potassium 500 mg tablet 500 mg PO DAILY Patient Comments: TAKE 1 TABLET BY MOUTH 4 TIMES A DAY UNTIL GONE Held Xarelto 20 mg tablet 20 mg PO DAILY Qty: 30 2RF Hold Instructions: Hold Xarelto until you follow-up with cardiology Rx Instructions: must administer with evening meal Discontinued losartan 25 mg tablet 25 mg PO DAILY Qty: 90 3RF Referrals / Follow Up: Baron Veliz MD [Med Staff - Active Staff] - See Referral Note (Contact the office later this week to schedule a follow-up appointment if they do not contact you) [facility] [[facility] - See Referral Note (At your regular appointment time) Disposition Disposition (needs filled in before D/C Order can be placed): Home, Self Care
[2023-02-16 08:00] VITALS: BP 181/76; PULSE 69; RESP 18; TEMP 36.8; O2SAT 96
--- NOTE | 2023-02-16 08:07 | DS.PCM_ITS ---
Providers Date of Admission: 02/14/23 Date of Discharge: 02/16/23 Primary Care Physician: [facility] Consultations 02/14/23 13:12 Consult: Cardiology Routine Consulting Provider: Moreno Smith Reason for Consult: cardaic arrythmia EMERGENT Consult: Yes MD Notified: Yes Date Notified: 02/14/23 Time Notified: 12:06 Method of Notification: ED Physician Initiated Reason For Visit: ARRHYTHMIA Diagnosis Discharge Diagnosis (1) 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 atrioventricular block: Status: Acute Code(s): I44.1 - Atrioventricular block, second degree Plan 1. Mobitz type II AV block/sinoatrial node dysfunction-status post pacemaker insertion today, patient will be placed on several of his home medications, Xarelto will be held at this time #2 coronary artery disease-patient will resume his aspirin and beta-kiah #3 chronic kidney disease stage IIIa-labs will be monitored as necessary #4 cerebrovascular disease-patient will remain on his present medication i ncluding aspirin and Zetia #5 type 2 diabetes-patient's blood sugars will be monitored, sliding scale insulin will be given as needed #6 hypothyroidism-patient is on Synthroid #7 essential hypertension-patient will remain on his home medications for blood pressure at this time #8 paroxysmal atrial flutter-patient will need to stay off his anticoagulation at this time due to his pacemaker insertion, he will remain on Lopressor Total clinical time spent by myself addressing the patient's medical issues, reviewing all of his data, and collaborating with patient's care team: 35 minutes Medications at Discharge Home Medications metformin 500 mg tablet 1,000 mg PO QHS DM 03/19/17 nitroglycerin 0.4 mg sublingual tablet 0.4 mg sublingual Q5-15M PRN chest pain #90 tabs 05/25/18 aspirin 81 mg chewable tablet 81 mg PO DAILY@0800 HEALTH MAINTENANCE 06/16/22 ezetimibe 10 mg tablet (Zetia) 10 mg PO DAILY DM 06/16/22 insulin human U-100 NPH-regulr 70-30 mix 100 unit/mL subcutaneous susp (Novolin 70/30 U-100 Insulin) 32 unit subcut QHS DM 06/16/22 insulin human U-100 NPH-regulr 70-30 mix 100 unit/mL subcutaneous susp (Novolin 70/30 U-100 Insulin) 40 unit subcut DAILY DM 06/16/22 isosorbide mononitrate 60 mg tablet,extended release 24 hr 60 mg PO DAILY HEART 06/16/22 pediatric multivit no.17-ferrous fumarate 15 mg iron chewable tablet 1 tab PO DAILY SUPPLEMENT 06/16/22 rivaroxaban 20 mg tablet (Xarelto) 20 mg PO DAILY blood thinner #30 tabs 06/19/22 tamsulosin 0.4 mg capsule 0.4 mg PO DAILY@1200 prostate 30 days #30 caps 06/19/22 levothyroxine 175 mcg tablet 200 mcg PO DAILY THYROID 07/02/22 furosemide 40 mg tablet (Lasix) 40 mg PO BID fluid retention 30 days #60 tabs 10/29/22 metoprolol tartrate 25 mg tablet 25 mg PO BID HEART/BLOOD PRESSURE #60 tabs 10/29/22 sennosides 8.6 mg-docusate sodium 50 mg tablet (Stool Softener-Stimulant Laxative) 2 tab PO BID PRN PRN Constipation #0 tabs 10/29/22 ascorbic acid (vitamin C) 1,000 mg tablet 1 g PO BID supplement 11/24/22 empagliflozin 25 mg tablet 12.5 mg PO DAILY diabetes 11/24/22 penicillin V potassium 500 mg tablet 500 mg PO DAILY infection 02/14/23 losartan 100 mg tablet 100 mg PO DAILY #30 tabs 02/16/23 Hospital Course Procedures - (Pacemaker implant) Summary of Care Provided Minutes Spent on Discharge: 32 Hospital Course: 72-year-old white male presented to the emergency room at [facility] with generalized weakness and fatigue, he also felt lightheaded. Patient's labs were remarkable for creatinine of 1.45, BUN was 37, CBC was unremarkable, and troponin was normal. Chest x-ray showed no acute pulmonary process. Patient had an episode of bradycardia felt to be heart block while in the emergency room, this was discussed with cardiology and the patient was admitted to ICU. Patient was seen in consultation by cardiology, cardiology felt the patient had sick sinus syndrome and recommended to hold his beta-kiah and place a pacemaker. On 02/15/2023, patient underwent implantation of a dual-lead pacemaker, he tolerated the procedure well and there were no complications. On 02/16/2023, patient was seen and examined: On examination he appeared in good health and spirits. Vital signs as documented. Skin warm and dry and without overt rashes. Neck without JVD, neck was supple, trachea midline, thyroid was normal. Lungs clear bilaterally, normal air movement was noted. Heart exam notable for regular rhythm, normal sounds and absence of murmurs, rubs or gallops. Abdomen unremarkable and without evidence of organomegaly, masses, or abdominal aortic enlargement. Bowel sounds are present, abdomen is not distended. Extremities nonedematous, no cyanosis was noted, no clubbing was noted. Neuro: Cranial nerves II through XII are grossly intact, no focal motor deficits were noted, sensation to light touch and pinprick intact, motor exam 5/5 throughout. Psych: Patient is alert and oriented x3, he does not appear anxious or depressed, he does not appear agitated. Patient was discharged home in stable condition on 02/16/2023. Weight / BMI Weight Weight: 103.1 kg Body Mass Index (BMI) 30.1 ABG / Lab / Microbiology Data 02/16/23 03:35 02/16/23 03:35 Laboratory: Laboratory Results - last 24 hr 02/15/23 07:51: POC Glucose 147 H 02/15/23 13:16: POC Glucose 122 H 02/15/23 17:40: POC Glucose 198 H 02/15/23 20:07: POC Glucose 165 H 02/16/23 03:35: WBC 9.8, RBC 5.60, Hgb 16.1, Hct 50.5, MCV 90.2, MCH 28.8, MCHC 31.9 L, RDW Std Deviation 50.8 H, RDW Coeff of [place] 15.6 H, Plt Count 170, MPV 12.1 H, Immature Gran % (Auto) 0.500, Neut % (Auto) 66.2, Lymph % (Auto) 19.9, [place] % (Auto) 7.5, Eos % (Auto) 5.2 H, Baso % (Auto) 0.7, Absolute Neuts (auto) 6.5, Absolute Lymphs (auto) 1.94, Nucleated RBC % 0, Sodium 142, Potassium 4.0, Chloride 108 H, Carbon Dioxide 28.0, Anion Gap 6, BUN 23 H, Creatinine 1.43 H, Estim Creat Clear Calc 52.77, Est GFR (MDRD) Af Amer 62, Est GFR (MDRD) Non-Af 52 L, BUN/Creatinine Ratio 16.1, Glucose 165 H, Calcium 8.9 D/C Instructions Discharge Diet: 1800 Calorie Control Diet Weight Bearing Status: Full weight bearing Meaningful Use Info Meaningful Use Diagnoses (Choose all that apply): None applicable Discharge Plan Admission Admit Date/Time: 02/14/23 11:51 Primary Reason for Your Visit: Second-degree AV block, sick sinus syndrome Attending Provider: Mynor Hartley Primary Care Provider: [facility],[place] Consulting Providers: James Valdivia; Moreno Smith Instructions Patient Instructions: Living with a Pacemaker, Pacemaker Implant Dc Discharge Orders/Prescriptions Prescriptions: New losartan 100 mg Tablet 100 mg PO DAILY Qty: 30 0RF Continued metformin 500 mg tablet 1,000 mg PO QHS nitroglycerin 0.4 mg tablet, sublingual 0.4 mg SUBLINGUAL Q5-15M PRN (Reason: chest pain) Qty: 90 6RF Rx Instructions: until response; do not exceed 3 doses per episode ascorbic acid (vitamin C) 1,000 mg tablet 1 g PO BID Novolin 70/30 U-100 Insulin 100 unit/mL (70-30) suspension 32 unit SUBCUT QHS Novolin 70/30 U-100 Insulin 100 unit/mL (70-30) suspension 40 unit SUBCUT DAILY pedi multivit 17-iron fumarate 15 mg iron Tablet,Chewable 1 tab PO DAILY Hold Instructions: Order Changed isosorbide mononitrate 60 mg tablet extended release 24 hr 60 mg PO DAILY aspirin 81 MG tablet,chewable 81 mg PO DAILY@0800 ezetimibe [Zetia] 10 mg tablet 10 mg PO DAILY tamsulosin 0.4 mg Capsule 0.4 mg PO DAILY@1200 30 Days Qty: 30 0RF levothyroxine 175 mcg tablet 200 mcg PO DAILY sennosides-docusate sodium [Stool Softener-Stimulant Laxat] 8.6-50 mg Tablet 2 tab PO BID PRN PRN (Reason: Constipation) Qty: 0 0RF furosemide [Lasix] 40 mg tablet 40 mg PO BID 30 Days Qty: 60 2RF Rx Instructions: Take furosemide 80 mg at 10 AM if increased leg swelling or weight gain 5 pounds in 1 week. metoprolol tartrate 25 mg tablet 25 mg PO BID Qty: 60 11RF Rx Instructions: Hold for heart less than 50 or systolic blood pressure less than 100 mmHg. empagliflozin 25 mg tablet 12.5 mg PO DAILY penicillin V potassium 500 mg tablet 500 mg PO DAILY Patient Comments: TAKE 1 TABLET BY MOUTH 4 TIMES A DAY UNTIL GONE Held Xarelto 20 mg tablet 20 mg PO DAILY Qty: 30 2RF Hold Instructions: Hold Xarelto until you follow-up with cardiology Rx Instructions: must administer with evening meal Discontinued losartan 25 mg tablet 25 mg PO DAILY Qty: 90 3RF Referrals / Follow Up: Baron Veliz MD [Med Staff - Active Staff] - See Referral Note (Contact the office later this week to schedule a follow-up appointment if they do not contact you) [facility]] - See Referral Note (At your regular appointment time) Disposition Disposition (needs filled in before D/C Order can be placed): Home, Self Care Charges/Coding Visit Charges Inpatient E&M: 22605 Disch Hosp >30min
[2023-02-16] MEDS: Aspirin 81 MG TAB.CHEW PO (08:27)
[2023-02-16] MEDS: Furosemide 40 MG Tablet PO (08:27)
[2023-02-16] MEDS: Insulin Lispro 100 UNIT/ML INSULN.PEN SC ×2 (08:27→11:19)
[2023-02-16] MEDS: Isosorbide Mononitrate 60 MG Tablet PO (08:27)
[2023-02-16 08:28] VITALS: PULSE 77
[2023-02-16] MEDS: Ezetimibe 10 MG Tablet PO (08:28)
[2023-02-16] MEDS: Metoprolol Tartrate 25 MG Tablet PO (08:28)
[2023-02-16 08:41] LABS: Bedside Glucose 175 mg/dL (74-106)
[2023-02-16] MEDS: Losartan Potassium 100 MG Tablet PO (09:22)
--- NOTE | 2023-02-16 09:39 | PCM.PN.CARD ---
Subjective Subjective Patient seen and evaluated. Appears to be doing well. Objective Data Vital Signs: Vital Signs Temp Pulse Resp BP Pulse Ox O2 Del Method O2 Flow Rate 98.2 F 77 18 181/76 H 96 Room Air 2 02/16/23 08:00 02/16/23 08:28 02/16/23 08:00 02/16/23 08:00 02/16/23 08:00 02/16/23 08:00 02/15/23 17:00 Oxygen Flow Rate (L/min) 2 Oxygen Delivery Method Room Air Weight: 227 lb 4.745 oz Body Mass Index (BMI) 30.1 Intake & Output: Intake and Output for Last 24 Hours 02/14/23 02/15/23 02/16/23 23:59 23:59 23:59 Intake Total 2220 / 2220 1480.00 / 1580.00 1859.16 / 1859.16 Output Total 1050 / 1050 1400 / 1650 2250 / 2250 Balance 1170 / 1170 80.00 / -70.00 -390.84 / -390.84 Lab / Micro Data 02/16/23 03:35 02/16/23 03:35 Labs: Laboratory Results - last 24 hr 02/15/23 13:16: POC Glucose 122 H 02/15/23 17:40: POC Glucose 198 H 02/15/23 20:07: POC Glucose 165 H 02/16/23 03:35: WBC 9.8, RBC 5.60, Hgb 16.1, Hct 50.5, MCV 90.2, MCH 28.8, MCHC 31.9 L, RDW Std Deviation 50.8 H, RDW Coeff of [place] 15.6 H, Plt Count 170, MPV 12.1 H, Immature Gran % (Auto) 0.500, Neut % (Auto) 66.2, Lymph % (Auto) 19.9, [place] % (Auto) 7.5, Eos % (Auto) 5.2 H, Baso % (Auto) 0.7, Absolute Neuts (auto) 6.5, Absolute Lymphs (auto) 1.94, Nucleated RBC % 0, Sodium 142, Potassium 4.0, Chloride 108 H, Carbon Dioxide 28.0, Anion Gap 6, BUN 23 H, Creatinine 1.43 H, Estim Creat Clear Calc 52.77, Est GFR (MDRD) Af Amer 62, Est GFR (MDRD) Non-Af 52 L, BUN/Creatinine Ratio 16.1, Glucose 165 H, Calcium 8.9 02/16/23 08:22: POC Glucose 175 H Cardiology Labs/Tests 02/16/23 03:35: WBC 9.8, RBC 5.60, Hgb 16.1, Hct 50.5, MCV 90.2, MCH 28.8, MCHC 31.9 L, Plt Count 170, MPV 12.1 H, Immature Gran % (Auto) 0.500, Neut % (Auto) 66.2, Lymph % (Auto) 19.9, [place] % (Auto) 7.5, Eos % (Auto) 5.2 H, Baso % (Auto) 0.7, Absolute Neuts (auto) 6.5, Nucleated RBC % 0, Sodium 142, Potassium 4.0, Chloride 108 H, Carbon Dioxide 28.0, Anion Gap 6, BUN 23 H, Creatinine 1.43 H, Est GFR (MDRD) Af Amer 62, Est GFR (MDRD) Non-Af 52 L, BUN/Creatinine Ratio 16.1, Glucose 165 H, Calcium 8.9 Rhythm: EKG: ECHO: Stress Test: Cardiac Cath: PCI: CT Surgery: Holter monitor: EPS: PPM: CXR: Chest CT Scan: Physical Exam Const alert, oriented x3, no apparent distress and healthy appearing General Appearance: cooperative, well kempt and well developed Orientation / Consciousness: awake, oriented to person, oriented to place and oriented to time HEENT normocephalic, head/scalp atraumatic and moist oral mucous membranes Eyes PERRL, EOMs intact bilaterally and conjunctivae normal Neck supple, no JVD, thyroid normal and no carotid bruits General: trachea midline Resp normal respiratory effort, no retractions, no use of accessory muscles and clear to auscultation bilaterally Auscultation: Negative for rales, rhonchi or wheezes Cardio S1 normal heart sound, S2 normal heart sound, no murmurs, no rub and no gallops Cardio Narrative: Heart rate and rhythm is regular with occasional PVCs GI normal to inspection, nondistended, normoactive bowel sounds, soft to palpation, non-tender and non-distended Extremity no clubbing, cyanosis or edema Skin no rashes or lesions noted General Skin Exam: no breakdown Neuro oriented x3, CN's II-XII intact bilaterally, no focal motor deficits and no sensory deficits noted Sensorium / Orientation: awake and alert Speech: speech normal Psych affect normal Assessment & Plan Assessment/Plan (1) Bifascicular bundle branch block: PLAN: The patient appears to have symptomatic bifascicular block. He underwent placement of a permanent pacemaker and is doing well. This was interrogated and is functioning well. He will be seen as an outpatient. (2) Atrial flutter: PLAN: He does have a previous history of atrial flutter. He is maintaining sinus rhythm at this time we will continue him on the current medical therapy. His Xarelto will be held while he undergoes a permanent pacemaker implantation. (3) CAD (coronary artery disease): PLAN: He does have a history of coronary artery disease and the plan will be to continue the current medical therapy at this particular time. (4) Essential (primary) hypertension: PLAN: His blood pressure appears to be under good control at this particular time I would not necessarily make changes at this particular time. Thank you for allowing me to participate in the care of your patient. Please don't hesitate to call if any issues arise.
--- NOTE | 2023-02-16 09:41 | DCINST_ITS ---
Discharge Instructions Diet Discharge Diet: 1800 Calorie Control Diet Activity Discharge Activity: May Not Drive May shower in (days): 2 Weight Bearing Status: Full weight bearing Additional Activity Instructions:: May shower or bathe on [day 3]. Do not scrub the incision or soak in the tub. Just wash with soap and let the water run over the incision. Gently pat dry with towel. Medications: Take your pain medication as directed. Refer to your discharge instruction sheet for a list of medications you are to take. Dressing / Incision Call your doctor if your incision/area has: Continuous Slow Oozing, Sudden Increased Bleeding, Increased Pain/ Swelling, Increased Redness, Foul Smelling Discharge and Swelling at the incision site Call your doctor if you observe: Fever of 101 or Higher, Shortness of breath, Dizziness, Fainting spells, Swelling in the ankles, Chest pain, Prolonged hiccupping and Increased palpitations (irregular heartbeat) Suture Line Care: Avoid Pulling/Pushing and Avoid Pinching/Bending Additional Dressing/Incision Instructions:: When dressing is removed, wash and dry incision. Keep covered with a light bandage if it is rubbing against your clothing. Do not cover the incision with an airtight bandage. Change the bandage daily. Do not remove steri strips. The strips will fall off on their own. Follow Up Care Please Follow Up With: Baron Veliz MD When: Pacer follow-up on February 22 at 1:30 PM. No Xarelto until then. Test Results: Test results from this visit will be discussed in further detail at your follow- up appointment, if applicable. Discharge Plan Admission Admit Date/Time: 02/14/23 11:51 Primary Reason for Your Visit: Second-degree AV block, sick sinus syndrome Attending Provider: Mynor Hartley Primary Care Provider: [facility],[place] Consulting Providers: James Valdivia; Moreno Smith Instructions Patient Instructions: Living with a Pacemaker, Pacemaker Implant Dc Discharge Orders/Prescriptions Prescriptions: New losartan 100 mg Tablet 100 mg PO DAILY Qty: 30 0RF Continued metformin 500 mg tablet 1,000 mg PO QHS nitroglycerin 0.4 mg tablet, sublingual 0.4 mg SUBLINGUAL Q5-15M PRN (Reason: chest pain) Qty: 90 6RF Rx Instructions: until response; do not exceed 3 doses per episode ascorbic acid (vitamin C) 1,000 mg tablet 1 g PO BID Novolin 70/30 U-100 Insulin 100 unit/mL (70-30) suspension 32 unit SUBCUT QHS Novolin 70/30 U-100 Insulin 100 unit/mL (70-30) suspension 40 unit SUBCUT DAILY pedi multivit 17-iron fumarate 15 mg iron Tablet,Chewable 1 tab PO DAILY Hold Instructions: Order Changed isosorbide mononitrate 60 mg tablet extended release 24 hr 60 mg PO DAILY aspirin 81 MG tablet,chewable 81 mg PO DAILY@0800 ezetimibe [Zetia] 10 mg tablet 10 mg PO DAILY tamsulosin 0.4 mg Capsule 0.4 mg PO DAILY@1200 30 Days Qty: 30 0RF levothyroxine 175 mcg tablet 200 mcg PO DAILY sennosides-docusate sodium [Stool Softener-Stimulant Laxat] 8.6-50 mg Tablet 2 tab PO BID PRN PRN (Reason: Constipation) Qty: 0 0RF furosemide [Lasix] 40 mg tablet 40 mg PO BID 30 Days Qty: 60 2RF Rx Instructions: Take furosemide 80 mg at 10 AM if increased leg swelling or weight gain 5 pounds in 1 week. metoprolol tartrate 25 mg tablet 25 mg PO BID Qty: 60 11RF Rx Instructions: Hold for heart less than 50 or systolic blood pressure less than 100 mmHg. empagliflozin 25 mg tablet 12.5 mg PO DAILY penicillin V potassium 500 mg tablet 500 mg PO DAILY Patient Comments: TAKE 1 TABLET BY MOUTH 4 TIMES A DAY UNTIL GONE Held Xarelto 20 mg tablet 20 mg PO DAILY Qty: 30 2RF Hold Instructions: Hold Xarelto until you follow-up with cardiology Rx Instructions: must administer with evening meal Discontinued losartan 25 mg tablet 25 mg PO DAILY Qty: 90 3RF Referrals / Follow Up: Baron Veliz MD [Med Staff - Active Staff] - See Referral Note (Contact the office later this week to schedule a follow-up appointment if they do not contact you) [facility] [[facility] - See Referral Note (At your regular appointment time) Disposition Disposition (needs filled in before D/C Order can be placed): Home, Self Care
[2023-02-16 11:45] LABS: Bedside Glucose 197 mg/dL (74-106)
[2023-02-16] MEDS: Penicillin Vk 250 MG Tablet 500 MG PO (12:35)
[2023-02-16 13:30] VITALS: BP 117/62; PULSE 65; RESP 16; TEMP 36.6; O2SAT 98
== END 2023-02-16 16:05 | disposition home or self-care (01) | DRG 243 ==
LOC: ED 11:23 → ICU 12:23
PROVIDERS: Admitting Provider Internal Medicine; Emergency Provider Student in an Organized Health Care Education/Training Program; Visit Provider Internal Medicine
DX: I44.1 Atrioventricular block, second degree (principal); I50.32 Chronic diastolic (congestive) heart failure; I13.0 Hypertensive heart and chronic kidney disease with heart failure and stage 1 through stage 4 chronic kidney disease, or unspecified chronic kidney disease; E11.22 Type 2 diabetes mellitus with diabetic chronic kidney disease; I42.9 Cardiomyopathy, unspecified; N18.31 Chronic kidney disease, stage 3a; I49.5 Sick sinus syndrome; I48.92 Unspecified atrial flutter; E11.42 Type 2 diabetes mellitus with diabetic polyneuropathy; E11.51 Type 2 diabetes mellitus with diabetic peripheral angiopathy without gangrene; I48.91 Unspecified atrial fibrillation; E03.9 Hypothyroidism, unspecified; I45.2 Bifascicular block; G47.33 Obstructive sleep apnea (adult) (pediatric); I95.1 Orthostatic hypotension; I25.10 Atherosclerotic heart disease of native coronary artery without angina pectoris; I45.10 Unspecified right bundle-branch block; E78.5 Hyperlipidemia, unspecified; E66.9 Obesity, unspecified; I49.3 Ventricular premature depolarization; Z87.891 Personal history of nicotine dependence; Z66 Do not resuscitate; Z95.0 Presence of cardiac pacemaker; Z68.32 Body mass index [BMI] 32.0-32.9, adult; Z79.01 Long term (current) use of anticoagulants; Z79.84 Long term (current) use of oral hypoglycemic drugs; Z79.82 Long term (current) use of aspirin
CPT/HCPCS: 33208; 71045; 71046; 80048; 80053; 82962; 83690; 83735; 84100; 84484; 85025; 93005; 94762; 99152; 99153; 99285; J7030; J7050; A4216; C1894

== ENCOUNTER → 2023-02-22 | Outpatient (CLI) | payer BC, SELFPAY ==
--- NOTE | 2023-02-22 14:00 | RAD_ITS ---
STUDY: X-RAY CHEST REASON FOR EXAM: Male, 72 years old. Confirm that atrial lead hasn''t dropped into RV TECHNIQUE: PA and lateral views of the chest. COMPARISON: Comparison is made with prior study dated February 16, 2023. FINDINGS: Stable increased markings at the lung bases suggestive of either mild scarring and/or atelectasis. There is no demonstrated pleural abnormality. Sternal cerclage wires and vascular clips are present from a prior sternotomy and coronary artery bypass graft procedure (CABG). A left-sided dual-chamber pacemaker is seen. The lead positioning is unchanged. Normal mediastinum and nasrin. Normal visualized pulmonary arteries. There is atherosclerotic calcification of the aortic arch with tortuosity. Normal visualized thoracic spine. Normal visualized ribs, clavicles, and shoulders. There is no demonstrated abnormality of the visualized soft tissue structures of the upper abdomen. RAD/Chest PA and Lateral IMPRESSION: Stable examination. Electronically Signed: Jesus Alberto Blair MD at 14:28 EST ,
== END | disposition home or self-care (01) ==
LOC: RAD 14:00
PROVIDERS: Referring Provider Internal Medicine Cardiovascular Disease; Visit Provider Internal Medicine Cardiovascular Disease
DX: I44.1 Atrioventricular block, second degree (principal); I48.92 Unspecified atrial flutter; I49.5 Sick sinus syndrome; I45.2 Bifascicular block
CPT/HCPCS: 71046

== ENCOUNTER 2023-03-17 05:54 | Emergency (ER) | payer BC, SELFPAY ==
[2023-03-17 05:56] VITALS: BP 155/60; PULSE 65; RESP 15; TEMP 36.4; O2SAT 94; BMI 32.0
--- NOTE | 2023-03-17 06:12 | EDS_ITS ---
HPI History of Present Illness Chief Complaint: Dizziness Informant: patient Onset/Context/Timing Onset: Yesterday Context: Gradual Onset Timing: Intermittent Quality: Lightheaded Location: Generalized Worsened by: Standing Relieved by: Nothing Narrative Narrative: Patient presents with lightheadedness and dizziness that began yesterday. Patient states it has been intermittent since yesterday. Patient states he feels lightheaded. Patient states it feels like he is at the [place], looking over the edge, and trying not to fall over. Patient states it is worse when he stands up even when he stands up slowly. Patient admits to some occasional palpitations. Patient states he can feel an occasional PVC. Patient admits to some shortness of breath. Patient admits to some nausea but denies any vomiting. Patient denies any fevers or chills. Patient denies any headaches or hearing changes. [facility] Medical History (HFpEF) heart failure with preserved ejection fraction Aftercare following surgery of the circulatory system Atherosclerosis of [place] coronary artery of [place] heart without angina p ectoris Atrial flutter Atrial flutter by electrocardiogram BPH (benign prostatic hyperplasia) CAD (coronary artery disease) CKD (chronic kidney disease) CVA (cerebral vascular accident) Diabetes mellitus Dizziness Essential (primary) hypertension History of DVT (deep vein thrombosis) History of non-ST elevation myocardial infarction (NSTEMI) Hyperlipidemia Hypothyroidism Ischemic stroke Left leg pain 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 atrioventricular block NSVT (nonsustained ventricular tachycardia) Obesity Open wound of scalp WILLIAN treated with BiPAP PAD (peripheral artery disease) Palpitations Peripheral neuropathy Presence of cardiac pacemaker Stroke Thrombosis of left common femoral artery Thyroid disorder Home Medications metformin 500 mg tablet 1,000 mg PO QHS DM 03/19/17 [History Last Taken 10/27/22 18:30] nitroglycerin 0.4 mg sublingual tablet 0.4 mg sublingual Q5-15M PRN chest pain #90 tabs 05/25/18 [Rx Last Taken Unknown] aspirin 81 mg chewable tablet 81 mg PO DAILY@0800 HEALTH MAINTENANCE 06/16/22 [History Last Taken 10/27/22 08:00] ezetimibe 10 mg tablet (Zetia) 10 mg PO DAILY DM 06/16/22 [History Last Taken 10/27/22 08:00] insulin human U-100 NPH-regulr 70-30 mix 100 unit/mL subcutaneous susp (Novolin 70/30 U-100 Insulin) 32 unit subcut QHS DM 06/16/22 [History Last Taken 06/15/22] insulin human U-100 NPH-regulr 70-30 mix 100 unit/mL subcutaneous susp (Novolin 70/30 U-100 Insulin) 40 unit subcut DAILY DM 06/16/22 [History Last Taken 06/16/22] isosorbide mononitrate 60 mg tablet,extended release 24 hr 60 mg PO DAILY HEART 06/16/22 [History Last Taken 10/27/22 08:00] rivaroxaban 20 mg tablet (Xarelto) 20 mg PO DAILY blood thinner #30 tabs 06/19/22 [Rx Last Taken 10/27/22 18:30] tamsulosin 0.4 mg capsule 0.4 mg PO DAILY@1200 prostate 30 days #30 caps 06/19/22 [Rx Last Taken 10/27/22 18:30] levothyroxine 175 mcg tablet 200 mcg PO DAILY THYROID 07/02/22 [History Last Taken 10/27/22 20:55] furosemide 40 mg tablet (Lasix) 40 mg PO BID fluid retention 30 days #60 tabs 10/29/22 [Rx Last Taken Unknown] sennosides 8.6 mg-docusate sodium 50 mg tablet (Stool Softener-Stimulant Laxative) 2 tab PO BID PRN PRN Constipation #0 tabs 10/29/22 [Rx Last Taken Unknown] empagliflozin 25 mg tablet 12.5 mg PO DAILY diabetes 11/24/22 [History Last Taken Unknown] penicillin V potassium 500 mg tablet 500 mg PO DAILY infection 02/14/23 [History Last Taken Unknown] losartan 100 mg tablet 100 mg PO DAILY #30 tabs 02/16/23 [Rx Last Taken Unknown] metoprolol tartrate 25 mg tablet 12.5 mg PO BID HEART/BLOOD PRESSURE 03/02/23 [History Last Taken Unknown] Allergy/AdvReac Type Severity Reaction Status Date / Time atorvastatin [From Lipitor] AdvReac Severe mylagia Verified 03/17/23 06:03 lanolin AdvReac Severe Rash Verified 03/17/23 06:03 Family History Sister CAD (coronary artery disease) Diabetes Brother CAD (coronary artery disease) Father Asthma Mother Cancer lung Surgical History History of coronary artery bypass surgery (~01/21/17) Hx of cardiac catheterization (~01/19/17) S/P coronary artery stent placement (~04/05/18) Social History household members: spouse Smoking Status: Former smoker how long ago did patient quit smokin alcohol intake: never substance use type: does not use caffeine: Yes Type: coffee Number of servings: 3 what type of physical activity do you participate in: none seatbelt use: always do you feel safe at home: Yes ROS ROS ED Constitutional Constitutional ED: Denies chills or fever(s) Eyes Eyes: Denies blurry vision or change in vision ENT ENT ED: Denies rhinorrhea or sore throat Cardiovascular Cardiovascular: Reports palpitations; Denies chest pain Respiratory/Chest Respiratory/Chest: Reports dyspnea; Denies cough Gastrointestinal Gastrointestinal: Reports nausea; Denies vomiting Genitourinary Genitourinary ED: Denies dysuria or hematuria Musculoskeletal Musculoskeletal: Denies back pain or neck pain Integumentary Denies abscess or rash Neurologic Neurologic: Denies headache(s) or weakness Allergic/Immunologic Allergic/Immunologic ED: Denies mouth swelling or urticaria EXAM Physical Exam Const Vital Signs: 03/17/23 05:56 03/17/23 06:02 03/17/23 07:45 Temperature 97.5 F L Temperature Source Temporal Pulse Rate 65 Pulse Rate [Lying] 62 Pulse Rate [Sitting (for 1 minute prior to obtaining)] 61 Pulse Rate [Standing (for 1 minute prior to obtaining)] 68 Respiratory Rate 15 Respiratory Effort Non-Labored Short of Breath Respiratory Pattern Normal Blood Pressure 155/60 H Blood Pressure [Lying] 123/94 H Blood Pressure [Sitting (for 1 minute prior to obtaining)] 111/74 Blood Pressure [Standing (for 1 minute prior to obtaining)] 117/74 Blood Pressure Mean 91 Blood Pressure Mean [Lying] 103 Blood Pressure Mean [Sitting (for 1 minute prior to obtaining)] 86 Blood Pressure Mean [Standing (for 1 minute prior to obtaining)] 88 Pulse Ox 94 Oxygen Delivery Method Room Air Positive well nourished and well developed General Appearance ED: well developed and NAD HEENT Reports moist mucous membranes Neck supple and no JVD Resp normal respiratory effort and clear to auscultation bilaterally Cardio regular rate and regular rhythm GI non-tender and non-distended Palpation: soft Extremity normal to inspection General Extremety ED: Negative for edema or tenderness General Extremity: Negative for edema Neuro oriented x3, CN's II-XII intact bilaterally and no sensory deficits noted Sensorium / Orientation: alert Motor Exam: strength 5/5 throughout Psych mental status grossly normal MDM MDM MDM Narrative Medical decision making narrative: Differential diagnosis includes cardiac dysrhythmia, cardiac ischemia, stroke, electrolyte abnormality, dehydration, orthostatic hypotension, and anxiety. EKG will be obtained to assess for cardiac dysrhythmia and cardiac ischemia. CT scan of the brain will be obtained to assess for stroke and intracranial bleeding. Chest x-ray will be obtained to assess for pneumonia and pneumothorax. CBC will be obtained to assess for leukocytosis and anemia. Basic metabolic profile will be obtained to assess for electrolyte abnormality and renal function. High-sensitivity troponin will be obtained to assess for cardiac ischemia. Lab Data Attestation: I reviewed the patient's lab results. Lab results narrative: CBC was reviewed and was within normal limits. Basic metabolic profile was reviewed. BUN was 35 and creatinine was 1.7. These are consistent with previous results. High-sensitivity troponin was reviewed and was normal at 32. COVID-19 rapid antigen was reviewed and was negative. Influenza A and influenza B antigens were reviewed and were negative. Labs: Laboratory Results - last 24 hr 03/17/23 06:05 WBC 9.9 RBC 5.67 Hgb 16.3 Hct 50.8 MCV 89.6 MCH 28.7 MCHC 32.1 RDW Std Deviation 49.4 H RDW Coeff of [place] 15.0 H Plt Count 185 MPV 11.8 Immature Gran % (Auto) 0.800 Neut % (Auto) 68.2 Lymph % (Auto) 19.9 [place] % (Auto) 5.8 Eos % (Auto) 4.3 Baso % (Auto) 1.0 Absolute Neuts (auto) 6.7 Absolute Lymphs (auto) 1.96 Nucleated RBC % 0 Sodium 140 Potassium 3.5 Chloride 104 Carbon Dioxide 28.0 Anion Gap 8 BUN 35 H Creatinine 1.70 H Estim Creat Clear Calc 44.39 Est GFR (MDRD) Af Amer 51 L Est GFR (MDRD) Non-Af 42 L BUN/Creatinine Ratio 20.6 H Glucose 157 H Calcium 9.7 Troponin I High Sens 32 Radiography Chest X-Ray - ED: 1 View, Read by ED Physician, Read by Radiologist and No Acute Disease Diagnostic Testing: Clinical Impression(s) from Imaging Studies Brain CT 03/17/23 06:37 IMPRESSION: 1. Chronic involutional changes of the brain. 2. No CT evidence of acute intracranial hemorrhage. Electronically Signed: Tricia Melendez MD at 7:48 EST , Chest X-Ray 03/17/23 07:03 IMPRESSION: No evidence of acute cardiopulmonary disease. Electronically Signed: Ellis Giordano DO at 7:41 EST , Portable 1 view chest x-ray was obtained. On my independent interpretation, lung kiser are clear. There is normal cardiac silhouette. Bony thorax is normal. There is no acute process noted. Radiologist also interpreted the x- ray and agrees. CT scan of the brain was obtained. There is no acute intracranial abnormality. This was interpreted by the radiologist and was also independently reviewed by myself. EKG Initial EKG: Attestation: I personally reviewed and interpreted this EKG as follows: Interpretation: Paced (63) and LBBB Comments: EKG was obtained. On my independent interpretation, it shows a paced rhythm with a rate of 63. VA interval was 160. QRS interval was slightly prolonged at 196 ms. QTc interval was 515 ms. There is left axis deviation at -80. There is a left bundle branch block pattern noted. Prior EKG tracings: available for review Prior: Unchanged (02/14/2023) Treatment and Re-Evaluation :: Orthostatic vital signs were obtained and were negative. Patient was advised of his findings. Patient will be ambulated here in the emergency department. If he is able to ambulate with a steady gait, I feel he can be discharged home. If he is unable to ambulate and is unsteady on his feet, I will discuss the patient with the hospitalist. Discharge Plan Triage Chief Complaint: Dizziness Other Complaint: General Illness ED Provider: Sergei Barahona Dx/Rx/DC Orders Clinical Impression: Dizziness of unknown etiology, Essential (primary) hypertension, CKD (chronic kidney disease) Instructions: ED Dizziness, Uncertain Cause Prescriptions: No Action metformin 500 mg tablet 1,000 mg PO QHS nitroglycerin 0.4 mg tablet, sublingual 0.4 mg SUBLINGUAL Q5-15M PRN (Reason: chest pain) Qty: 90 6RF Rx Instructions: until response; do not exceed 3 doses per episode metoprolol tartrate 25 mg tablet 12.5 mg PO BID Rx Instructions: Hold for heart less than 50 or systolic blood pressure less than 100 mmHg. Novolin 70/30 U-100 Insulin 100 unit/mL (70-30) suspension 32 unit SUBCUT QHS Novolin 70/30 U-100 Insulin 100 unit/mL (70-30) suspension 40 unit SUBCUT DAILY isosorbide mononitrate 60 mg tablet extended release 24 hr 60 mg PO DAILY aspirin 81 MG tablet,chewable 81 mg PO DAILY@0800 ezetimibe [Zetia] 10 mg tablet 10 mg PO DAILY tamsulosin 0.4 mg Capsule 0.4 mg PO DAILY@1200 30 Days Qty: 30 0RF Xarelto 20 mg tablet 20 mg PO DAILY Qty: 30 2RF Hold Instructions: Hold Xarelto until you follow-up with cardiology Rx Instructions: must administer with evening meal levothyroxine 175 mcg tablet 200 mcg PO DAILY sennosides-docusate sodium [Stool Softener-Stimulant Laxat] 8.6-50 mg Tablet 2 tab PO BID PRN PRN (Reason: Constipation) Qty: 0 0RF furosemide [Lasix] 40 mg tablet 40 mg PO BID 30 Days Qty: 60 2RF Rx Instructions: Take furosemide 80 mg at 10 AM if increased leg swelling or weight gain 5 pounds in 1 week. empagliflozin 25 mg tablet 12.5 mg PO DAILY penicillin V potassium 500 mg tablet 500 mg PO DAILY Patient Comments: TAKE 1 TABLET BY MOUTH 4 TIMES A DAY UNTIL GONE losartan 100 mg Tablet 100 mg PO DAILY Qty: 30 0RF Primary [facility] Provider: [facility] Referrals: [facility] [Primary Care Provider] -
--- NOTE | 2023-03-17 06:37 | CT_ITS ---
STUDY: CT BRAIN WITHOUT CONTRAST REASON FOR EXAM: Male, 72 years old patient with headache. RADIATION DOSAGE (If Supplied By Facility): CTDIvol = ( 44.99 ) mGy, DLP = ( 846.73 ) mGycm TECHNIQUE: Transaxial CT imaging of the brain was performed without administration of intravenous contrast material. Multiplanar reformations are submitted for interpretation. Individualized dose optimization techniques were used for this CT. COMPARISON: MRI of the brain dated February 08, 2018. FINDINGS: Normal soft tissue structures. Normal calvarium. There is mild cerebral atrophy with widening of the extra-axial spaces and ventricular dilatation. There are areas of decreased attenuation within the white matter tracts of the supratentorial brain, consistent with microvascular disease changes. Normal basal ganglia and thalami. Normal brainstem. There is a colleen cisterna magnum. Cerebellum is otherwise within normal limits in appearance. There is no intracranial hemorrhage. There is atherosclerotic calcification of intracranial arteries. There is encephalomalacia visible within the posterior left temporal lobe consistent with old infarct. There is opacification of several left-sided ethmoid sinuses. CT/Brain/Head without Contrast IMPRESSION: 1. Chronic involutional changes of the brain. 2. No CT evidence of acute intracranial hemorrhage. Electronically Signed: Tricia Melendez MD at 7:48 EST ,
[2023-03-17 06:53] LABS: Absolute Lymphocyte Count 1.96 X10^3/uL (0.83-4.51); Absolute Neutrophil Count 6.7 X10^3/uL (2.0-7.7); Eosinophil# 0.42 X10^3/uL; Eosinophils% 4.3 % (0-5); Hematocrit 50.8 % (40-54); Hemoglobin 16.3 g/dL (13.0-16.5); Lymphocyte # 1.96 X10^3/ul (0.83-4.51); Lymphocyte % 19.9 % (19-41); Mean Corp Hgb Conc 32.1 g/dL (32-36); Mean Corpuscular Hgb 28.7 pg (27.0-32.0); Mean Corpuscular Volume 89.6 fL (80-94); Mean Platelet Vol. 11.8 fl (6.2-12.0); Monocyte# 0.57 X10^3/uL; Monocyte% 5.8 % (0-10); NRBC Flagged by Analyzer 0 % (0-5); Neutrophil # 6.74 X10^3/uL (2.7-7.7); Neutrophil % 68.2 % (47-70); Platelet Count 185 K/mm3 (150-450); RBC Distribution Width SD 49.4 fl (35.1-43.9); Red Blood Count 5.67 M/mm3 (4.6-6.2); White Blood Count 9.9 K/mm3 (4.4-11.0)
--- NOTE | 2023-03-17 07:03 | RAD_ITS ---
INDICATION: Dizziness EXAMINATION/TECHNIQUE: X-RAY - XR Chest 1 View COMPARISON: 02/22/2023. FINDINGS: LINES/DEVICES: Cardiac pacer and leads are stable. LUNGS: No consolidation or evidence of an effusion. No evidence of edema or a pneumothorax. MEDIASTINUM AND CARDIOVASCULAR STRUCTURES: Cardiac silhouette is normal in size and contour. Stable postsurgical changes. BONES AND SOFT TISSUES: No acute abnormality. RAD/Chest 1 View (Portable) IMPRESSION: No evidence of acute cardiopulmonary disease. Electronically Signed: Ellis Giordano DO at 7:41 EST ,
[2023-03-17 07:14] LABS: Anion Gap 8 (5-15); BUN 35 mg/dL (7-18); BUN/Creat Ratio 20.6 RATIO (10-20); Calcium,Total 9.7 mg/dL (8.5-10.1); Chloride 104 mmol/L (98-107); EST Glomerular Filtration Rate 42 mL/min (>60); Est Glom Filt Rate - Afr Amer 51 mL/min (>60); Estimated Creatinine Clearance 44.39 ml/min; Glucose 157 mg/dL (74-106); Potassium 3.5 mmol/L (3.5-5.1); Sodium Level 140 mmol/L (136-145); Troponin-I HS 32 pg/mL (3.0-78.0)
[2023-03-17 07:45] VITALS: BP 111/74; BP 117/74; BP 123/94; PULSE 61; PULSE 62; PULSE 68
[2023-03-17 08:24] VITALS: BP 106/74; PULSE 61
== END 2023-03-17 08:27 | disposition home or self-care (01) ==
PROVIDERS: Emergency Provider Emergency Medicine; Visit Provider Emergency Medicine
DX: R42 Dizziness and giddiness (principal); I13.0 Hypertensive heart and chronic kidney disease with heart failure and stage 1 through stage 4 chronic kidney disease, or unspecified chronic kidney disease; I50.32 Chronic diastolic (congestive) heart failure; E11.42 Type 2 diabetes mellitus with diabetic polyneuropathy; E11.22 Type 2 diabetes mellitus with diabetic chronic kidney disease; Z79.4 Long term (current) use of insulin; E78.5 Hyperlipidemia, unspecified; Z87.891 Personal history of nicotine dependence; I25.10 Atherosclerotic heart disease of native coronary artery without angina pectoris; N18.9 Chronic kidney disease, unspecified; R00.2 Palpitations; Z86.718 Personal history of other venous thrombosis and embolism; G47.33 Obstructive sleep apnea (adult) (pediatric); Z99.89 Dependence on other enabling machines and devices; I25.2 Old myocardial infarction; Z86.73 Personal history of transient ischemic attack (TIA), and cerebral infarction without residual deficits; Z95.1 Presence of aortocoronary bypass graft; Z95.5 Presence of coronary angioplasty implant and graft
CPT/HCPCS: 70450; 71045; 80048; 84484; 85025; 87428; 93005; 99285; A4216

== ENCOUNTER 2023-04-23 07:46 | Emergency (ER) | payer OTHER, SELFPAY ==
[2023-04-23 07:46] VITALS: BP 129/81; PULSE 75; RESP 22; TEMP 35.7; O2SAT 96; BMI 32.3
--- NOTE | 2023-04-23 07:56 | EDS_ITS ---
HPI History of Present Illness Chief Complaint: Shortness of Breath Detail of Chief Complaint: Out of Lasix. 10 pound weight gain over the last 3 days. Informant: patient Onset/Context/Timing Onset: Days Context: gradual Timing: Continuous Quality: Positive for Dyspnea on exertion and Orthopnea; Negative for Wheezing Current Severity: Mild Maximum Severity: Mild Worsened by: Exertion and Lying flat Relieved by: Nothing Associated Symptoms Negative for cough Chest Pain: Positive for None Narrative Narrative: 72-year-old male extensive past medical history of CAD, CHF, a flutter and pacemaker. He is on the blood thinner Xarelto. Also has a history of diabetes prior CABG and DVT. He is on Lasix that is prescribed 40 mg twice a day he said for about the last 30 days he is only been taking it once a day and then 3 days ago he ran out. He is put on about 10 pounds and he is having some shortness of breath with exertion and lying supine. No chest pain. No fever or cough. He has had the same symptoms before when he gets recurrent CHF. He was admitted to the hospital in January for this. PE Risk Factors: Positive for Prior DVT or PE; Negative for Cancer, OCP + Smoking + > 35, Recent immobilization, Recent surgery or Recent travel Prior similar symptoms: Yes Recent Illness/Hospitalization: Yes PFSH [facility] Medical History (HFpEF) heart failure with preserved ejection fraction Aftercare following surgery of the circulatory system Atherosclerosis of [place] coronary artery of [place] heart without angina pectoris Atrial flutter Atrial flutter by electrocardiogram BPH (benign prostatic hyperplasia) CAD (coronary artery disease) CKD (chronic kidney disease) CVA (cerebral vascular accident) Diabetes mellitus Dizziness Essential (primary) hypertension History of DVT (deep vein thrombosis) History of non-ST elevation myocardial infarction (NSTEMI) Hyperlipidemia Hypothyroidism Ischemic stroke Left leg pain 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 atrioventricular block NSVT (nonsustained ventricular tachycardia) Obesity Open wound of scalp WILLIAN treated with BiPAP PAD (peripheral artery disease) Palpitations Peripheral neuropathy Presence of cardiac pacemaker Stroke Thrombosis of left common femoral artery Thyroid disorder Home Medications metformin 500 mg tablet 1,000 mg PO QHS DM 03/19/17 [History Last Taken 10/27/22 18:30] nitroglycerin 0.4 mg sublingual tablet 0.4 mg sublingual Q5-15M PRN chest pain #90 tabs 05/25/18 [Rx Last Taken Unknown] aspirin 81 mg chewable tablet 81 mg PO DAILY@0800 HEALTH MAINTENANCE 06/16/22 [History Last Taken 10/27/22 08:00] ezetimibe 10 mg tablet (Zetia) 10 mg PO DAILY DM 06/16/22 [History Last Taken 10/27/22 08:00] insulin human U-100 NPH-regulr 70-30 mix 100 unit/mL subcutaneous susp (Novolin 70/30 U-100 Insulin) 32 unit subcut QHS DM 06/16/22 [History Last Taken 06/15/22] insulin human U-100 NPH-regulr 70-30 mix 100 unit/mL subcutaneous susp (Novolin 70/30 U-100 Insulin) 40 unit subcut DAILY DM 06/16/22 [History Last Taken 06/16/22] rivaroxaban 20 mg tablet (Xarelto) 20 mg PO DAILY blood thinner #30 tabs 06/19/22 [Rx Last Taken 10/27/22 18:30] tamsulosin 0.4 mg capsule 0.4 mg PO DAILY@1200 prostate 30 days #30 caps 06/19/22 [Rx Last Taken 10/27/22 18:30] levothyroxine 175 mcg tablet 200 mcg PO DAILY THYROID 07/02/22 [History Last Taken 10/27/22 20:55] furosemide 40 mg tablet (Lasix) 40 mg PO BID fluid retention 30 days #60 tabs 10/29/22 [Rx Last Taken Unknown] empagliflozin 25 mg tablet 12.5 mg PO DAILY diabetes 11/24/22 [History Last Taken Unknown] isosorbide mononitrate 60 mg tablet,extended release 24 hr 30 mg PO DAILY HEART 04/01/23 [History Last Taken Unknown] losartan 100 mg tablet 25 mg PO DAILY 04/01/23 [History Last Taken Unknown] metoprolol tartrate 25 mg tablet 12.5 mg PO BID HEART/BLOOD PRESSURE 04/01/23 [History Last Taken Unknown] furosemide 40 mg tablet (Lasix) 40 mg PO DAILY 30 days #30 tabs 04/23/23 [Rx Last Taken Unknown] Allergy/AdvReac Type Severity Reaction Status Date / Time atorvastatin [From Lipitor] AdvReac Severe mylagia Verified 04/01/23 13:08 lanolin AdvReac Severe Rash Verified 04/01/23 13:08 Family History Sister CAD (coronary artery disease) Diabetes Brother CAD (coronary artery disease) Father Asthma Mother Cancer lung Surgical History History of coronary artery bypass surgery (~01/21/17) Hx of cardiac catheterization (~01/19/17) S/P coronary artery stent placement (~04/05/18) Social History household members: spouse Smoking Status: Former smoker how long ago did patient quit smokin alcohol intake: never substance use type: does not use caffeine: Yes Type: coffee Number of servings: 3 what type of physical activity do you participate in: none seatbelt use: always do you feel safe at home: Yes ROS ROS ED ROS Narrative Dyspnea. Weight gain. Review of Systems ROS Unobtainable: Denies due to encephalopathy Constitutional Constitutional ED: Denies chills or fever(s) Eyes Eyes: Denies blurry vision ENT ENT ED: Denies ear pain Cardiovascular Cardiovascular: Reports orthopnea; Denies chest pain Respiratory/Chest Respiratory/Chest: Reports dyspnea, dyspnea on exertion and orthopnea; Denies cough Gastrointestinal Gastrointestinal: Reports diarrhea; Denies abdominal pain, constipation, melena, nausea or vomiting Genitourinary Genitourinary ED: Denies dysuria or hematuria Musculoskeletal Musculoskeletal: Denies arthralgias, back pain, myalgias or neck pain Integumentary Denies abscess or Abrasions Neurologic Neurologic: Denies headache(s) Psychiatric Psychiatric: Denies anxiety or depression Endocrine Endocrinology: Denies cold intolerance Hematologic/Lymphatic Hematologic/Lymphatic: Denies easy bleeding Allergic/Immunologic Allergic/Immunologic ED: Denies mouth swelling EXAM Physical Exam Narrative Exam Narrative: 72-year-old male vital signs stable afebrile. Initial blood pressure 129/81. Pulse ox 96% on room air sitting up in bed. Patient does not look septic toxic or in any distress. H EENT exam unremarkable other than poor dentition. Multiple missing teeth. Neck nontender. No JVD. Lungs clear to auscultation bilaterally. Heart regular rhythm no murmur rate about 75. Abdomen soft nontender. Moving all 4 extremities. Nontender. There is no edema in his lower legs. Neurologically is awake and alert with no focal motor deficits. Const Vital Signs: 04/23/23 07:46 04/23/23 07:46 04/23/23 07:57 Temperature 96.2 F L Temperature Source Temporal Pulse Rate 75 Respiratory Rate 22 H Respiratory Effort Short of Breath Respiratory Depth Normal Respiratory Pattern Normal Blood Pressure 129/81 H Blood Pressure Mean 97 Pulse Ox 96 Oxygen Delivery Method Room Air Room Air Room Air 04/23/23 09:46 Temperature Temperature Source Pulse Rate 94 Respiratory Rate 16 Respiratory Effort Respiratory Depth Respiratory Pattern Blood Pressure 137/72 H Blood Pressure Mean 93 Pulse Ox 98 Oxygen Delivery Method Room Air Positive well nourished and well developed; Negative for cachectic, contractures or unkempt General Appearance ED: well developed and NAD; Negative for unkempt, cachectic, contractures or pallor Nutritional Appearance: Negative for cachectic HEENT Reports moist mucous membranes; Denies dry mucous membranes atraumatic; Negative for trauma or tenderness Mouth ED: No dry mucous membranes Mouth: No dry mucous membranes Eyes PERRL and EOMs intact bilaterally General Eye ED: Negative for pale conjunctiva or scleral icterus Neck no lymphadenopathy, supple, no meningeal signs and no JVD General: Negative for tenderness Lymph Lymphatic: Negative for other Chest Wall Chest: Negative for other Resp normal respiratory effort and clear to auscultation bilaterally Effort and Inspection: Negative for pain with movement Auscultation: Negative for rales, rhonchi, wheezes or diminished lung sounds Cardio regular rate, regular rhythm, S1 normal heart sound, S2 normal heart sound and no murmurs Rate: Negative for bradycardia or tachycardic GI non-tender, non-distended and no masses Auscultation: normoactive bowel sounds Palpation: soft; Negative for tender or guarding Back/Spine no CVA tenderness and normal to inspection General Back: Negative for CVA tenderness, tenderness or other Extremity normal to inspection General Extremety ED: Negative for edema or tenderness General Extremity: Negative for edema Neuro oriented x3 and CN's II-XII intact bilaterally Sensorium / Orientation: alert, oriented to person, oriented to place and oriented to time; Negative for orientation impaired, confused, lethargic or stuporous Speech: speech normal Motor Exam: strength 5/5 throughout Psych mental status grossly normal Appearance: Negative for unkempt Attitude: No agitated and No other Mood & Affect: Negative for depressed, anxious or tearful Thought Process: normal thought process Skin no wounds and skin turgor normal General Skin Exam: Negative for jaundice or pallor Lesions: no lesions Rashes: no rashes Trauma: Negative for abrasion, laceration or puncture MDM MDM MDM Narrative Medical decision making narrative: Well-appearing 72-year-old male most likely has exacerbation of underlying CHF due to for the last month he has been taking half of the dose that he is prescribed for his Lasix he is taking 40 mg once a day instead of twice a day. And over the last 3 days he is run out of medication. Cardiac workup will be obtained. He is having no chest pain. No fever. I do not think this is infectious. Repeat exam patient is doing well at 11:05 AM patient doing well. We discussed his test results he thought this was secondary to CHF which I believe also. He will be started back on his Lasix 40 mg twice a day I will give him a month supply with a refill. He knows his creatinine was 1.73 and [facility] to have [facility] function rechecked. He will be given a dose of p.o. Lasix here prior to discharge. History & Record Review Discussion w/independent historian: Patient Additional record(s) reviewed:: Prior inpatient record, Prior outpatient record, Prior ED visit and Prior labs Lab Data Attestation: I reviewed the patient's lab results. Lab results narrative: CBC shows a white count 8 H&H of 15 and 49. Platelets 156. Electrolytes show a gap of 2 BUN and creatinine at 28 and 1.73. Prior cr eatinine was 1.7. Glucose 97. Troponins 45. BNP is 1134 consistent with the patient's congestive heart failure. Labs: Laboratory Results - last 24 hr 04/23/23 07:04 WBC 8.0 RBC 5.37 Hgb 15.9 Hct 49.1 MCV 91.4 MCH 29.6 MCHC 32.4 RDW Std Deviation 53.8 H RDW Coeff of [place] 16.2 H Plt Count 156 MPV 12.5 H Immature Gran % (Auto) 0.400 Neut % (Auto) 72.0 H Lymph % (Auto) 19.5 [place] % (Auto) 4.9 Eos % (Auto) 2.6 Baso % (Auto) 0.6 Absolute Neuts (auto) 5.8 Absolute Lymphs (auto) 1.56 Nucleated RBC % 0 Sodium 142 Potassium 4.2 Chloride 115 H Carbon Dioxide 25.0 Anion Gap 2 L BUN 28 H Creatinine 1.73 H Estim Creat Clear Calc 50.47 Est GFR (MDRD) Af Amer 50 L Est GFR (MDRD) Non-Af 41 L BUN/Creatinine Ratio 16.2 Glucose 97 Calcium 9.0 Troponin I High Sens 45 B-Natriuretic Peptide 1134.2 H Radiography Chest X-Ray - ED: Read by ED Physician, Normal, Mediastinum, Bony Structures, No Acute Disease, CHF, No Infiltrates, Left Infiltrate, Right Effusion, Left Eff usion and Right Rib Fx Diagnostic Testing: Clinical Impression(s) from Imaging Studies Chest X-Ray 04/23/23 08:10 IMPRESSION: New infiltrate at the right lung base. Stable pleural parenchymal changes at the left lung base. Electronically Signed: Jesus Alberto Blair MD at 8:30 EST , Chest x-ray, portable, single view shows normal cardiac silhouette. Bilateral pulmonary edema consistent with CHF Prior sternotomy. Left-sided pacemaker. F. Radiologist read infiltrates and old like there is infiltrates. Rhythm Strip Rhythm Strip: PACED Rate: 89 Ectopy: None EKG Initial EKG: Attestation: I personally reviewed and interpreted this EKG as follows: Interpretation: Paced Comments: Paced rhythm rate 89. Discharge Plan Triage Chief Complaint: Shortness of Breath ED Provider: Will [facility] Dx/Rx/DC Orders Clinical Impression: CHF (congestive heart failure), Diabetes mellitus, Acute dyspnea, Chronic renal insufficiency, History of atrial fibrillation Instructions: ED Heart Failure, Congestive (CHF) Prescriptions: New furosemide [Lasix] 40 mg tablet 40 mg PO DAILY 30 Days Qty: 30 1RF No Action metformin 500 mg tablet 1,000 mg PO QHS nitroglycerin 0.4 mg tablet, sublingual 0.4 mg SUBLINGUAL Q5-15M PRN (Reason: chest pain) Qty: 90 6RF Rx Instructions: until response; do not exceed 3 doses per episode losartan 100 mg tablet 25 mg PO DAILY isosorbide mononitrate 60 mg tablet extended release 24 hr 30 mg PO DAILY metoprolol tartrate 25 mg tablet 12.5 mg PO BID Rx Instructions: Hold for heart less than 50 or systolic blood pressure less than 100 mmHg. Novolin 70/30 U-100 Insulin 100 unit/mL (70-30) suspension 32 unit SUBCUT QHS Novolin 70/30 U-100 Insulin 100 unit/mL (70-30) suspension 40 unit SUBCUT DAILY aspirin 81 MG tablet,chewable 81 mg PO DAILY@0800 ezetimibe [Zetia] 10 mg tablet 10 mg PO DAILY tamsulosin 0.4 mg Capsule 0.4 mg PO DAILY@1200 30 Days Qty: 30 0RF Xarelto 20 mg tablet 20 mg PO DAILY Qty: 30 2RF Hold Instructions: Hold Xarelto until you follow-up with cardiology Rx Instructions: must administer with evening meal levothyroxine 175 mcg tablet 200 mcg PO DAILY furosemide [Lasix] 40 mg tablet 40 mg PO BID 30 Days Qty: 60 2RF Rx Instructions: Take furosemide 80 mg at 10 AM if increased leg swelling or weight gain 5 pounds in 1 week. empagliflozin 25 mg tablet 12.5 mg PO DAILY [facility] - 1-2 Weeks Activity Restrictions/Additional Instructions: Restarted on her Lasix 40 mg twice a day. Make sure you follow[facility] with [facility] to have your kidney function (creatinine) rechecked in 1 to 2 weeks. Today's creatinine was 1.73. You have been 1.7 before. The Lasix can dehydrate your kidneys and make the kidney function worse as well when it rechecked. Disposition Disposition: Home, Self Care
--- NOTE | 2023-04-23 08:10 | RAD_ITS ---
STUDY: X-RAY CHEST REASON FOR EXAM: Male, 72 years old. Chest pain TECHNIQUE: Single AP portable view of the chest. COMPARISON: Comparison is made with prior study dated March 17, 2023. FINDINGS: EKG electrodes are seen. New focal infiltrate in the right lung base. Stable pleural parenchymal changes at the left lung base. Normal size heart. A left-sided dual chamber pacemaker is seen. Prior CABG. Borderline cardiomegaly. Normal mediastinum and nasrin. Normal visualized pulmonary arteries. Normal visualized aortic arch and descending thoracic aorta. Normal visualized thoracic spine. Normal visualized ribs, clavicles, and shoulders. There is no demonstrated abnormality of the visualized soft tissue structures of the upper abdomen. RAD/Chest 1 View (Portable) IMPRESSION: New infiltrate at the right lung base. Stable pleural parenchymal changes at the left lung base. Electronically Signed: Jesus Alberto Blair MD at 8:30 EST ,
[2023-04-23 08:30] LABS: Anion Gap 2 (5-15); BUN 28 mg/dL (7-18); BUN/Creat Ratio 16.2 RATIO (10-20); Chloride 115 mmol/L (98-107); Creatinine, Serum 1.73 mg/dL (0.70-1.30); EST Glomerular Filtration Rate 41 mL/min (>60); Est Glom Filt Rate - Afr Amer 50 mL/min (>60); Estimated Creatinine Clearance 50.47 ml/min; Glucose 97 mg/dL (74-106); Potassium 4.2 mmol/L (3.5-5.1); Sodium Level 142 mmol/L (136-145); Troponin-I HS 45 pg/mL (3.0-78.0)
[2023-04-23 08:32] LABS: Absolute Lymphocyte Count 1.56 X10^3/uL (0.83-4.51); Absolute Neutrophil Count 5.8 X10^3/uL (2.0-7.7); Basophil# 0.05 X10^3/uL; Basophil% 0.6 % (0-1); Eosinophil# 0.21 X10^3/uL; Eosinophils% 2.6 % (0-5); Hematocrit 49.1 % (40-54); Hemoglobin 15.9 g/dL (13.0-16.5); Lymphocyte # 1.56 X10^3/ul (0.83-4.51); Lymphocyte % 19.5 % (19-41); Mean Corp Hgb Conc 32.4 g/dL (32-36); Mean Corpuscular Hgb 29.6 pg (27.0-32.0); Mean Corpuscular Volume 91.4 fL (80-94); Mean Platelet Vol. 12.5 fl (6.2-12.0); Monocyte# 0.39 X10^3/uL; Monocyte% 4.9 % (0-10); NRBC Flagged by Analyzer 0 % (0-5); Neutrophil # 5.78 X10^3/uL (2.7-7.7); Platelet Count 156 K/mm3 (150-450); RBC Distribution Width CV 16.2 % (11.6-14.6); RBC Distribution Width SD 53.8 fl (35.1-43.9); Red Blood Count 5.37 M/mm3 (4.6-6.2)
--- OUTSIDE RECORDS SUMMARY | 2023-04-23 08:50 | XMS RPT_ITS | CCD ---
Author Name Unknown Address [address] [place] [address] Organization [facility] Care Team Providers Care Tag Clerk Name Role Phone [facility] Unavailable Unavailable María Hughes Unavailable Unavailable María Hughes Unavailable Unavailable María Hughes Unavailable Unavailable María Hughes Unavailable Unavailable Harish Rodriguez Unavailable Unavailable DAYANA AGUIRRE Attending Unavailable MARÍA HUGHES Primary Care Unavailable LUCIE VALIENTE Consulting Unavailable LUCIE VALIENTE Admitting Unavailable LUCIE VALIENTE Attending Unavailable MARÍA HUGHES Primary Care Unavailable MARÍA HUGHES Consulting Unavailable PHILIP PLUNKETT Consulting Unavailable ADRIEN FREIRE Consulting Unavailable COSMO NICK Consulting Unavailable ELISE MARTIN Consulting Unavailable Problems Active Problems Problem Classification Problem Date Documented Date Episodic/Chronic Complication of device; implant or graft (2 sources) Atherosclerosis of coronary artery bypass graft(s) without angina pectoris; Translations: [Atherosclerosis of CABG w/o angina pectoris] Onset: 07-03-2017 Chronic Diabetes mellitus without complication (2 sources) Type 2 diabetes mellitus without complications; Translations: [Type 2 diabetes mellitus without complications] Onset: 07-03-2017 Chronic Disorders of lipid metabolism (2 sources) Hyperlipidemia, unspecified; Translations: [Hyperlipidemia, unspecified] Onset: 07-03-2017 Chronic Essential hypertension (2 sources) Essential (primary) hypertension; Translations: [Essential (primary) hypertension] Onset: 07-03-2017 Chronic External Injury - Machinery (2 sources) Contact with other specified machinery, initial encounter; Translations: [Contact with other specified machinery, initial encounter] Onset: 07-03-2017 External Injury - Unspecified (2 sources) Civilian activity done for income or pay; Translations: [Civilian activity done for income or pay] Onset: 07-03-2017 Other injuries and conditions due to external causes (2 sources) Unspecified injury of head, initial encounter; Translations: [Unspecified injury of head, initial encounter] Onset: 07-03-2017 Past or Other Problems Problem Classification Problem Date Documented Date Episodic/Chronic Abdominal hernia (2 sources) Umbilical hernia without obstruction or gangrene; Translations: [Umbilical hernia without obstruction or gangrene] Onset: 07-03-2017 Episodic Allergic reactions (2 sources) Allergy status to other drugs, medicaments and biological substances status; Translations: [Allergy status to oth drug/meds/biol subst status] Onset: 07-03-2017 Episodic Intracranial injury (2 sources) Concussion with loss of consciousness of unspecified duration, initial encounter; Translations: [Concussion w loss of consciousness of unsp duration, init] Onset: 07-03-2017 Episodic Open wounds of head; neck; and trunk (2 sources) Laceration without foreign body of scalp, initial encounter; Translations: [Laceration without foreign body of scalp, initial encounter] Onset: 07-03-2017 Episodic Other non-traumatic joint disorders (2 sources) Pain in left shoulder; Translations: [Pain in left shoulder] Onset: 07-03-2017 Episodic Superficial injury; contusion (4 sources) Abrasion of left wrist, initial encounter; Translations: [Abrasion of left shoulder, initial encounter] Onset: 07-03-2017 Episodic Results Test Name Value Interpretation Reference Range Facil ity Encounters Encounter Date Encounter Type Care Provider Facility Start: 04-04-2018 End: 04-06-2018 Patient encounter procedure LUCIE VALEINTE Facility:A Start: 04-04-2018 End: 04-04-2018 Emergency department patient visit DAYANA AGUIRRE Facility:B Start: 07-03-2017 Patient encounter María Hughes [facility] Start: 07-03-2017 Emergency department patient visit [facility] Payers Date Payer Category Payer Unknown [id number] 1950 Unknown [id number] 1950 Unknown [id number] Worker's Compensation Clinical Note 12-10-2020 Note Date & Type Note Facility 12-10-2020 Note Patient Outreach (NE TNAV) MICKY ABDI ([id number]) 1950 M Date Time Provider Department 12/10/20 JOSI IBARRA (PSS) NETNAV During your visit today, we recorded the following information about you: Josi Ibarra Pss 12/10/2020 10:57 AM Signed POPULATION HEALTH NAVIGATION OUTREACH Action/ Care Gap: Colorectal Cancer Screening Reached out to patient to schedule Colonoscopy LMTCB, sent my chart message Contact made with patient or family member? NO Pt identified by name and : NO Outreach Outcome/Action Unable to reach patient: Left message [email or web address] message sent Reason for Outreach Care Gap or Scheduling/Wellness visits Payer: No coverage found. Care Gap Reviewed:: Colorectal Cancer Screening Reminder: Reminder note to check Health Maintenance for items below Health Maintenance items due: ABDOMINAL AORTIC ANEURYSM SCREENING Never done COVID-19 VACCINE(1) Never done ANNUAL PCP TEAM CHRONIC DISEASE VISIT Never done BP CONTROLLED (<130/80) Never done SHINGRIX VACCINE(1 of 2) Never done ADVANCE DIRECTIVE DISCUSSION Never done DILATED RETINAL EXAM due on 08/31/2018 DEPRESSION SCREENING due on 09/07/2018 HBA1C due on 11/21/2018 COLORECTAL CANCER SCREENING due on 03/01/2019 URINE ALBUMIN:CREATININE RATIO due on 05/22/2019 LDL CHOLESTEROL due on 05/22/2019 DIABETIC FOOT EXAM due on 06/01/2019 Advanced Directives Completed: Have you ever planned for future healthcare decisions with a power of news video editor, living will, or advance directives? Referrals: Message Sent to Practice: Navigation Signature: Josi Ibarra Pss December 10, 2020 10:56 AM Allergies As of Date: 12/10/2020 Noted Allergy Reaction CRESTOR (ROSUVASTATIN CALCIUM) 09/07/2017 17 - Myalgia LANOLIN 02/15/2008 9 - Itching LIPITOR (ATORVASTATIN CALCIUM) 09/07/2017 17 - Myalgia Date Reviewed: 05/31/2018 Reviewed by: María Hughes - Fully Assessed Reason for Visit: Population Health Navigation Outreach [3910] Cmt: Colorectal Cancer Screening Prescriptions as of 12/10/2020 - blood sugar diagnostic (FREESTYLE LITE STRIPS) test strip Test blood sugar 3-4 times daily Dx E11.40 on insulin - levothyroxine (SYNTHROID) 125 mcg tablet TAKE 1 TABLET BY MOUTH ONCE DAILY. TAKE ON EMPTY STOMACH. FOR THYROID. - clopidogrel (PLAVIX) 75 mg tablet Take 1 tablet by mouth once daily. - metFORMIN (GLUCOPHAGE) 500 mg tablet Take 2 tablets by mouth twice daily. - insulin 75/25 lispro protamine/lispro units/mL (HUMALOG MIX 75-25 KWIKPEN) 100 unit/mL (75-25) inpn 34 units in AM and 30 units in the PM - insulin needles, DISPOSABLE, (PEN NEEDLE) 31 gauge x 5/16 ndle Use with 75/25 twice daily - ezetimibe (ZETIA) 10 mg tablet Take 1 tablet by mouth once daily. Per cardio - losartan (COZAAR) 25 mg tablet Take 1 tablet by mouth once daily. Per cardio - metoprolol tartrate, short acting, (LOPRESSOR) 25 mg tablet Take 1 tablet by mouth twice daily. Per cardio - isosorbide mononitrate ER (IMDUR) 30 mg 24 hr tablet Take 1 tablet by mouth once daily. Per cardio - nitroglycerin sublingual (NITROQUICK) 0.4 mg SL tablet Dissolve 1 tablet under the tongue every 5 minutes as needed for Chest Pain. Per cardio - aspirin, enteric coated (ASPIRIN LOW DOSE) 81 mg EC tablet Take 81 mg by mouth once daily. - meclizine (ANTIVERT) 12.5 mg tab 3 TIMES DAILY NEEDED PRN For Dizziness - acetaminophen (TYLENOL) 325 mg tablet Take 2 tablets by mouth every 6 hours as needed for Pain. - MULTIVIT-MINERALS/FERROUS FUM (MULTI VITAMIN ORAL) Take by mouth. Problem List As Of Date 12/10/2020 Noted Resolved Idiopathic peripheral neuropathy [G60.9] Pyoderma, unspecified [L08.0] 09/26/2007 Other acne [L70.8] 09/26/2007 Seborrheic dermatitis, unspecified [L21.9] 09/26/2007 Other psoriasis [L40.8] 09/26/2007 XEROSIS///SEBACEOUS GLAND DIS NEC [L73.8] 09/26/2007 Other specified disease of nail [L60.8] 09/26/2007 Other seborrheic keratosis [L82.1] 12/16/2007 H/O balance disorder [Z87.898] PVC (premature ventricular contraction) [I49.3] Diabetic eye exam (HCC) [Z01.00, E11.9] 10/25/2013 Dyslipidemia [E78.5] 10/25/2013 02/19/2014 Well adult exam [Z00.00] 10/25/2013 Colon cancer screening [Z12.11] 06/20/2014 Acquired hypothyroidism [E03.9] 02/20/2015 Mixed hyperlipidemia [E78.2] 02/20/2015 Prostate cancer screening [Z12.5] 02/20/2015 Uncontrolled type 2 diabetes mellitus without c*09/02/2015 06/04/2017 Essential hypertension with goal blood pressure*09/02/2015 Ex-smoker [Z87.891] 09/08/2016 Plantar fasciitis, left [M72.2] 09/08/2016 Multiple lung nodules [R91.8] 09/30/2016 History of CVA (cerebrovascular accident) [Z86.*02/09/2017 History of [place] (myocardial infarction) [I25.2] 02/25/2017 Coronary artery disease due to lipid rich plaqu*02/25/2017 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] 02/25/2017 Uncontrolled typ (more content not included)... [facility] Progress note 12-10-2020 Note Date & Type Note Facility 12-10-2020 Note HNO ID: [id number] Author: Josi Ibarra Pss Service: ? Author Type: ? Type: Progress Notes Filed: 12/10/2020 10:57 AM Note Text: POPULATION HEALTH NAVIGATION OUTREACH Action/ Care Gap: Colorectal Cancer Screening Reached out to patient to schedule Colonoscopy LMTCB, sent my chart message Contact made with patient or family member? NO Pt identified by name and : NO Outreach Outcome/Action Unable to reach patient: Left message MyChart message sent Reason for Outreach Care Gap or Scheduling/Wellness visits Payer: No coverage found. Care Gap Reviewed:: Colorectal Cancer Screening Reminder: Reminder note to check Health Maintenance for items below Health Maintenance items due: ABDOMINAL AORTIC ANEURYSM SCREENING Never done COVID-19 VACCINE(1) Never done ANNUAL PCP TEAM CHRONIC DISEASE VISIT Never done BP CONTROLLED (<130/80) Never done SHINGRIX VACCINE(1 of 2) Never done ADVANCE DIRECTIVE DISCUSSION Never done DILATED RETINAL EXAM due on 08/31/2018 DEPRESSION SCREENING due on 09/07/2018 HBA1C due on 11/21/2018 COLORECTAL CANCER SCREENING due on 03/01/2019 URINE ALBUMIN:CREATININE RATIO due on 05/22/2019 LDL CHOLESTEROL due on 05/22/2019 DIABETIC FOOT EXAM due on 06/01/2019 Advanced Directives Completed: Have you ever planned for future healthcare decisions with a power of news video editor, living will, or advance directives? Referrals: Message Sent to Practice: Navigation Signature: Josi Douglas December 10, 2020 10:56 AM [facility] Progress note 07-10-2020 Note Date & Type Note Facility 07-10-2020 Note HNO ID: [id number] Author: Samara Nolasco Service: ? Author Type: ? Type: Progress Notes Filed: 07/10/2020 1:11 PM Note Text: POPULATION HEALTH NAVIGATION OUTREACH Action/FYI No answer, lvm and sent my chart message to schedule Colonoscopy and Diab Eye Exam Contact made with patient or family member? NO Pt identified by name and : NO Outreach Outcome/Action Unable to reach patient: Left message Reason for Outreach Care Gap or Scheduling/Wellness visits Payer: No coverage found. Care Gap Reviewed:: Colorectal Cancer Screening Diabetic Eye Exam Reminder: Reminder note to check Health Maintenance for items below Health Maintenance items due: ABDOMINAL AORTIC ANEURYSM SCREENING Completed ANNUAL PCP TEAM CHRONIC DISEASE VISIT Completed BP CONTROLLED (<130/80) Completed SHINGRIX VACCINE(1 of 2) Completed ADVANCE DIRECTIVE DISCUSSION Completed DILATED RETINAL EXAM due on 08/31/2018 DEPRESSION SCREENING due on 09/07/2018 HBA1C due on 11/21/2018 COLORECTAL CANCER SCREENING due on 03/01/2019 URINE ALBUMIN:CREATININE RATIO due on 05/22/2019 LDL CHOLESTEROL due on 05/22/2019 DIABETIC FOOT EXAM due on 06/01/2019 Advanced Directives Completed: Have you ever planned for future healthcare decisions with a power of news video editor, living will, or advance directives? Referrals: Message Sent to Practice: NO Navigation Signature: Samara Nolasco July 10, 2020 1:11 PM [facility] Clinical Note 07-10-2020 Note Date & Type Note Facility 07-10-2020 Note Patient Outreach (RICHARD TNAV) MICKY ABDI ([id number]) 1950 M Date Time Provider Department 07/10/20 NOPCOOKIE (HISTORICAL) MATTIE During your visit today, we recorded the following information about you: Samara Nolasco 07/10/2020 1:11 PM Signed POPULATION HEALTH NAVIGATION OUTREACH Action/FYI No answer, lvm and sent my chart message to schedule Colonoscopy and Diab Eye Exam Contact made with patient or family member? NO Pt identified by name and : NO Outreach Outcome/Action Unable to reach patient: Left message Reason for Outreach Care Gap or Scheduling/Wellness visits Payer: No coverage found. Care Gap Reviewed:: Colorectal Cancer Screening Diabetic Eye Exam Reminder: Reminder note to check Health Maintenance for items below Health Maintenance items due: ABDOMINAL AORTIC ANEURYSM SCREENING Completed ANNUAL PCP TEAM CHRONIC DISEASE VISIT Completed BP CONTROLLED (<130/80) Completed SHINGRIX VACCINE(1 of 2) Completed ADVANCE DIRECTIVE DISCUSSION Completed DILATED RETINAL EXAM due on 08/31/2018 DEPRESSION SCREENING due on 09/07/2018 HBA1C due on 11/21/2018 COLORECTAL CANCER SCREENING due on 03/01/2019 URINE ALBUMIN:CREATININE RATIO due on 05/22/2019 LDL CHOLESTEROL due on 05/22/2019 DIABETIC FOOT EXAM due on 06/01/2019 Advanced Directives Completed: Have you ever planned for future healthcare decisions with a power of news video editor, living will, or advance directives? Referrals: Message Sent to Practice: NO Navigation Signature: Samara Nolasco July 10, 2020 1:11 PM Allergies As of Date: 07/10/2020 Noted Allergy Reaction CRESTOR (ROSUVASTATIN CALCIUM) 09/07/2017 17 - Myalgia LANOLIN 02/15/2008 9 - Itching LIPITOR (ATORVASTATIN CALCIUM) 09/07/2017 17 - Myalgia Date Reviewed: 05/31/2018 Reviewed by: María Hughes - Fully Assessed Reason for Visit: Population Health Navigation Outreach [3910] Cmt: deferred care Prescriptions as of 07/10/2020 Sig: BLOOD SUGAR DIAGNOSTIC STRIPS Test blood sugar 3-4 times da* LEVOTHYROXINE 125 MCG TABLET TAKE 1 TABLET BY MOUTH ONCE D* CLOPIDOGREL 75 MG TABLET Take 1 tablet by mouth once d* METFORMIN 500 MG TABLET Take 2 tablets by mouth twice* INSULIN LISPRO AND LISPRO PROT * 34 units in AM and 30 units i* PEN NEEDLE, DIABETIC 31 GAUGE* Use with 75/25 twice daily EZETIMIBE 10 MG TABLET Take 1 tablet by mouth once d* LOSARTAN 25 MG TABLET Take 1 tablet by mouth once d* METOPROLOL TARTRATE 25 MG TAB* Take 1 tablet by mouth twice * ISOSORBIDE MONONITRATE ER 30 * Take 1 tablet by mouth once d* NITROGLYCERIN 0.4 MG SUBLINGU* Dissolve 1 tablet under the t* ASPIRIN 81 MG TABLET,DELAYED * Take 81 mg by mouth once cindy* MECLIZINE 12.5 MG TABLET 3 TIMES DAILY NEEDED PRN F* ACETAMINOPHEN 325 MG TABLET Take 2 tablets by mouth every* MULTI VITAMIN ORAL Take by mouth. Problem List As Of Date 07/10/2020 Noted Resolved Idiopathic peripheral neuropathy [G60.9] Pyoderma, unspecified [L08.0] 09/26/2007 Other acne [L70.8] 09/26/2007 Seborrheic dermatitis, unspecified [L21.9] 09/26/2007 Other psoriasis [L40.8] 09/26/2007 XEROSIS///SEBACEOUS GLAND DIS NEC [L73.8] 09/26/2007 Other specified disease of nail [L60.8] 09/26/2007 Other seborrheic keratosis [L82.1] 12/16/2007 H/O balance disorder [Z87.898] PVC (premature ventricular contraction) [I49.3] Diabetic eye exam (HCC) [Z01.00, E11.9] 10/25/2013 Dyslipidemia [E78.5] 10/25/2013 02/19/2014 Well adult exam [Z00.00] 10/25/2013 Colon cancer screening [Z12.11] 06/20/2014 Acquired hypothyroidism [E03.9] 02/20/2015 Mixed hyperlipidemia [E78.2] 02/20/2015 Prostate cancer screening [Z12.5] 02/20/2015 Uncontrolled type 2 diabetes mellitus without c*09/02/2015 06/04/2017 Essential hypertension with goal blood pressure*09/02/2015 Ex-smoker [Z87.891] 09/08/2016 Plantar fasciitis, left [M72.2] 09/08/2016 Multiple lung nodules [R91.8] 09/30/2016 History of CVA (cerebrovascular accident) [Z86.*02/09/2017 History of [place] (myocardial infarction) [I25.2] 02/25/2017 Coronary artery disease due to lipid rich plaqu*02/25/2017 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] 02/25/2017 Uncontrolled type 2 diabetes mellitus with diab*06/04/2017 History of ischemic cerebrovascular accident (C*08/02/2017 Iron deficiency anemia [D50.9] 09/08/2017 NSVT (nonsustained ventricular tachycardia) (HC*03/31/2018 Pulmonary hypertension (HCC) [I27.20] 08/16/2018 Encounter Status:Closed by SAMARA KENNY on 07/10/20 [facility] Progress note 06-27-2020 Note Date & Type Note Facility 06-27-2020 Note HNO ID: [id number] Author: Carter Kasper MA Service: ? Author Type: Inspector Glass Or Mirror Type: Progress Notes Filed: 06/27/2020 3:00 PM Note Text: Care Gap Reviewed: HBA1C Phone call placed to patient. Pt identified by name and : YES Outreach Outcome/Action: Spoke to patient or caregiver: Patient declined navigation services If patient deferred or declined to schedule appointment, please indicate the reason(s): Received care somewhere else Carter Kasper [facility] Clinical Note 06-27-2020 Note Date & Type Note Facility 06-27-2020 Note Patient Outreach (FA MPWS) MICKY ABDI ([id number]) 1950 M Date Time Provider Department 06/27/20 CARTER KASPER During your visit today, we recorded the following information about you: Carter Kasper MA 06/27/2020 3:00 PM Signed Care Gap Reviewed: HBA1C Phone call placed to patient. Pt identified by name and : YES Outreach Outcome/Action: Spoke to patient or caregiver: Patient declined navigation services If patient deferred or declined to schedule appointment, please indicate the reason(s): Received care somewhere else Carter Kasper Allergies As of Date: 06/27/2020 Noted Allergy Reaction CRESTOR (ROSUVASTATIN CALCIUM) 09/07/2017 17 - Myalgia LANOLIN 02/15/2008 9 - Itching LIPITOR (ATORVASTATIN CALCIUM) 09/07/2017 17 - Myalgia Date Reviewed: 05/31/2018 Reviewed by: María Hughes - Fully Assessed Reason for Visit: Appointment [186] Cmt: A1C Prescriptions as of 06/27/2020 Sig: BLOOD SUGAR DIAGNOSTIC STRIPS Test blood sugar 3-4 times da* LEVOTHYROXINE 125 MCG TABLET TAKE 1 TABLET BY MOUTH ONCE D* CLOPIDOGREL 75 MG TABLET Take 1 tablet by mouth once d* METFORMIN 500 MG TABLET Take 2 tablets by mouth twice* INSULIN LISPRO AND LISPRO PROT * 34 units in AM and 30 units i* PEN NEEDLE, DIABETIC 31 GAUGE* Use with 75/25 twice daily EZETIMIBE 10 MG TABLET Take 1 tablet by mouth once d* LOSARTAN 25 MG TABLET Take 1 tablet by mouth once d* METOPROLOL TARTRATE 25 MG TAB* Take 1 tablet by mouth twice * ISOSORBIDE MONONITRATE ER 30 * Take 1 tablet by mouth once d* NITROGLYCERIN 0.4 MG SUBLINGU* Dissolve 1 tablet under the t* ASPIRIN 81 MG TABLET,DELAYED * Take 81 mg by mouth once cindy* MECLIZINE 12.5 MG TABLET 3 TIMES DAILY NEEDED PRN F* ACETAMINOPHEN 325 MG TABLET Take 2 tablets by mouth every* MULTI VITAMIN ORAL Take by mouth. Problem List As Of Date 06/27/2020 Noted Resolved Idiopathic peripheral neuropathy [G60.9] Pyoderma, unspecified [L08.0] 09/26/2007 Other acne [L70.8] 09/26/2007 Seborrheic dermatitis, unspecified [L21.9] 09/26/2007 Other psoriasis [L40.8] 09/26/2007 XEROSIS///SEBACEOUS GLAND DIS NEC [L73.8] 09/26/2007 Other specified disease of nail [L60.8] 09/26/2007 Other seborrheic keratosis [L82.1] 12/16/2007 H/O balance disorder [Z87.898] PVC (premature ventricular contraction) [I49.3] Diabetic eye exam (HCC) [Z01.00, E11.9] 10/25/2013 Dyslipidemia [E78.5] 10/25/2013 02/19/2014 Well adult exam [Z00.00] 10/25/2013 Colon cancer screening [Z12.11] 06/20/2014 Acquired hypothyroidism [E03.9] 02/20/2015 Mixed hyperlipidemia [E78.2] 02/20/2015 Prostate cancer screening [Z12.5] 02/20/2015 Uncontrolled type 2 diabetes mellitus without c*09/02/2015 06/04/2017 Essential hypertension with goal blood pressure*09/02/2015 Ex-smoker [Z87.891] 09/08/2016 Plantar fasciitis, left [M72.2] 09/08/2016 Multiple lung nodules [R91.8] 09/30/2016 History of CVA (cerebrovascular accident) [Z86.*02/09/2017 History of [place] (myocardial infarction) [I25.2] 02/25/2017 Coronary artery disease due to lipid rich plaqu*02/25/2017 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] 02/25/2017 Uncontrolled type 2 diabetes mellitus with diab*06/04/2017 History of ischemic cerebrovascular accident (C*08/02/2017 Iron deficiency anemia [D50.9] 09/08/2017 NSVT (nonsustained ventricular tachycardia) (HC*03/31/2018 Pulmonary hypertension (HCC) [I27.20] 08/16/2018 Encounter Status:Closed by CARTER KASPER MA on 06/27/20 [facility] Summary Purpose Family History No Family History Records FoundNo Family History Records FoundNo Family History Records FoundNo Family History Records Found Advance Directives No Advanced Directives Records FoundNo Advanced Directives Records FoundNo Advanced Directives Records FoundNo Advanced Directives Records Found Additional Source Comments (unrecognized sect ion and content) No Status Records FoundNo Status Records FoundNo Status Records FoundNo Status Records Found INFORMATION SOURCE (unrecogn ized section and content) DATE CREATED AUTHOR AUTHOR'S ORGANIZ ATION 11/01/2017 [facility] DATE CREATED AUTHOR AUTHOR'S ORGANIZ ATION 04/20/2018 [facility] ([place]) DATE CREATED AUTHOR AUTHOR'S ORGANIZ ATION 04/13/2021 [facility] FOR RECORDS PERTAINING TO PATIENTS WHO ARE OR HAVE BEEN ENROLLED IN A CHEMICAL DEPENDENCY/SUBSTANCEABUSE PROGRAM, SOME INFORMATION MAY BE OMITTED. This clinical summary was aggregated from multiple sources. Caution should be exercised in using it in the provision of clinical care. This summary normalizes information from multiple sources, and as a consequence, information in this document may materially change the coding, format and clinical context of patient data. In addition, data may be omitted in some cases. CLINICAL DECISIONS SHOULD BE BASED ON THE PRIMARY CLINICAL RECORDS. [facility] [employer] [facility]. provides no warranty or guarantee of the accuracy or completeness of information in this document.
[2023-04-23 08:58] LABS: BNP,B-Type NATRIURETIC PEPTIDE 1134.2 pg/mL (0-100)
[2023-04-23 09:46] VITALS: BP 137/72; PULSE 94; RESP 16; O2SAT 98
[2023-04-23 11:27] VITALS: BP 129/82; PULSE 60
[2023-04-23] MEDS: Furosemide 40 MG Tablet PO (11:27)
== END 2023-04-23 11:30 | disposition home or self-care (01) ==
PROVIDERS: Emergency Provider Emergency Medicine; Visit Provider Emergency Medicine
DX: I13.0 Hypertensive heart and chronic kidney disease with heart failure and stage 1 through stage 4 chronic kidney disease, or unspecified chronic kidney disease (principal); E11.51 Type 2 diabetes mellitus with diabetic peripheral angiopathy without gangrene; I50.30 Unspecified diastolic (congestive) heart failure; E11.22 Type 2 diabetes mellitus with diabetic chronic kidney disease; E11.42 Type 2 diabetes mellitus with diabetic polyneuropathy; I48.91 Unspecified atrial fibrillation; Z79.4 Long term (current) use of insulin; I25.10 Atherosclerotic heart disease of native coronary artery without angina pectoris; Z87.891 Personal history of nicotine dependence; N18.9 Chronic kidney disease, unspecified; Z95.0 Presence of cardiac pacemaker; Z79.01 Long term (current) use of anticoagulants; Z95.1 Presence of aortocoronary bypass graft; E78.5 Hyperlipidemia, unspecified; I25.2 Old myocardial infarction; Z86.73 Personal history of transient ischemic attack (TIA), and cerebral infarction without residual deficits; Z79.84 Long term (current) use of oral hypoglycemic drugs; Z79.899 Other long term (current) drug therapy; Z79.82 Long term (current) use of aspirin; E03.9 Hypothyroidism, unspecified; Z95.5 Presence of coronary angioplasty implant and graft; R06.00 Dyspnea, unspecified
CPT/HCPCS: 71045; 80048; 83880; 84484; 85025; 93005; 99284; A4216

== ENCOUNTER 2023-05-14 17:03 | Inpatient (IN) | payer OTHER, SELFPAY ==
[2023-05-14] VITALS (7 sets, daily range): BP systolic 123–151; BP diastolic 68–73; PULSE 60–85; RESP 14–18; TEMP 36–36.6; O2SAT 88–95; BMI 31.2; BMI 30.4
--- NOTE | 2023-05-14 17:46 | EKG12_ITS ---
Test Reason : Blood Pressure : / mmHG Vent. Rate : 068 BPM Atrial Rate : 068 BPM P-R Int : 000 ms QRS Dur : 146 ms QT Int : 404 ms P-R-T Axes : 000 -87 113 degrees QTc Int : 429 ms Ventricular-paced rhythm Abnormal ECG Confirmed by FABIOLA WILLETT, EDWIN ([id number]), sound editor CHANNING LLOYD ([id number]) on 05/17/2023 9:42:03 AM Referred By: YUSEF Confirmed By:EDWIN HICKS MD
--- NOTE | 2023-05-14 18:09 | EDS_ITS ---
HPI <FELISA Diaz - Last Filed: 05/14/23 22:00> History of Present Illness Chief Complaint: General Illness Narrative Narrative: Patient presenting due to generalized weakness. He reports that last week he was sick with flulike symptoms. He went to the urgent care and they performed a chest x-ray and influenza swab, the swab was negative and chest x-ray did not show any pneumonia. He was started on doxycycline and still has a few doses left of this. He reports that his nasal congestion has improved but he still has a productive cough. Yesterday he tried to go back to work but now has increased fatigue, weakness, and shortness of breath with exertion. He reports a history of CHF and takes 40 mg Lasix twice daily, he has been out of this for 2 days. PMH includes diabetes mellitus, CHF, hypertension, CKD, CVA, and CAD. He denies fevers, chills, chest pain, abdominal pain, nausea, and vomiting. PFSH <FELISA Diaz - Last Filed: 05/14/23 22:00> PFSH Medical History (HFpEF) heart failure with preserved ejection fraction Aftercare following surgery of the circulatory system Atherosclerosis of [place] coronary artery of [place] heart without angina pectoris Atrial flutter Atrial flutter by electrocardiogram BPH (benign prostatic hyperplasia) CAD (coronary artery disease) CKD (chronic kidney disease) CVA (cerebral vascular accident) Diabetes mellitus Dizziness Essential (primary) hypertension History of DVT (deep vein thrombosis) History of non-ST elevation myocardial infarction (NSTEMI) Hyperlipidemia Hypothyroidism Ischemic stroke Left leg pain 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 atrioventricular block NSVT (nonsustained ventricular tachycardia) Obesity Open wound of scalp WILLIAN treated with BiPAP PAD (peripheral artery disease) Palpitations Peripheral neuropathy Presence of cardiac pacemaker Stroke Thrombosis of left common femoral artery Thyroid disorder Home Medications metformin 500 mg tablet 1,000 mg PO QHS DM 03/19/17 [History Last Taken 10/27/22 18:30] nitroglycerin 0.4 mg sublingual tablet 0.4 mg sublingual Q5-15M PRN chest pain #90 tabs 05/25/18 [Rx Last Taken Unknown] aspirin 81 mg chewable tablet 81 mg PO DAILY@0800 HEALTH MAINTENANCE 06/16/22 [History Last Taken 10/27/22 08:00] ezetimibe 10 mg tablet (Zetia) 10 mg PO DAILY DM 06/16/22 [History Last Taken 10/27/22 08:00] insulin human U-100 NPH-regulr 70-30 mix 100 unit/mL subcutaneous susp (Novolin 70/30 U-100 Insulin) 32 unit subcut QHS DM 06/16/22 [History Last Taken 06/15/22] insulin human U-100 NPH-regulr 70-30 mix 100 unit/mL subcutaneous susp (Novolin 70/30 U-100 Insulin) 40 unit subcut DAILY DM 06/16/22 [History Last Taken 06/16/22] levothyroxine 175 mcg tablet 200 mcg PO DAILY THYROID 07/02/22 [History Last Taken 10/27/22 20:55] furosemide 40 mg tablet (Lasix) 40 mg PO BID fluid retention 30 days #60 tabs 10/29/22 [Rx Last Taken Unknown] empagliflozin 25 mg tablet 12.5 mg PO DAILY diabetes 11/24/22 [History Last Taken Unknown] isosorbide mononitrate 60 mg tablet,extended release 24 hr 30 mg PO DAILY HEART 04/01/23 [History Last Taken Unknown] losartan 100 mg tablet 100 mg PO DAILY 04/01/23 [History Last Taken Unknown] metoprolol tartrate 25 mg tablet 12.5 mg PO BID HEART/BLOOD PRESSURE 04/01/23 [History Last Taken Unknown] cholecalciferol (vitamin D3) 25 mcg (1,000 unit) chewable tablet (VitaJoy Daily D) 25 mcg PO DAILY 05/14/23 [History Last Taken Unknown] doxycycline hyclate 100 mg tablet 100 mg PO BID 05/14/23 [History Last Taken Unknown] furosemide 40 mg tablet (Lasix) 40 mg PO BID 05/14/23 [History Last Taken Unknown] magnesium glycinate 325 mg PO BID 05/14/23 [History Last Taken Unknown] rivaroxaban 20 mg tablet (Xarelto) 20 mg PO QHS blood thinner 05/14/23 [History Last Taken Unknown] tamsulosin 0.4 mg capsule 0.4 mg PO QHS prostate 05/14/23 [History Last Taken Unknown] Allergy/AdvReac Type Severity Reaction Status Date / Time atorvastatin [From Lipitor] AdvReac Severe mylagia Verified 05/14/23 17:05 lanolin AdvReac Severe Rash Verified 05/14/23 17:05 Family History Sister CAD (coronary artery disease) Diabetes Brother CAD (coronary artery disease) Father Asthma Mother Cancer lung Surgical History History of coronary artery bypass surgery (~01/21/17) Hx of cardiac catheterization (~01/19/17) S/P coronary artery stent placement (~04/05/18) Social History household members: spouse Smoking Status: Former smoker how long ago did patient quit smokin alcohol intake: never substance use type: does not use caffeine: Yes Type: coffee Number of servings: 3 what type of physical activity do you participate in: none seatbelt use: always do you feel safe at home: Yes ROS <FELISA Diaz - Last Filed: 05/14/23 22:00> ROS ED Constitutional Constitutional ED: Denies chills or fever(s) Cardiovascular Cardiovascular: Denies chest pain or palpitations Respiratory/Chest Respiratory/Chest: Reports dyspnea on exertion; Denies cough Gastrointestinal Gastrointestinal: Denies abdominal pain, nausea or vomiting Genitourinary Genitourinary ED: Denies dysuria, hematuria or urinary frequency Musculoskeletal Musculoskeletal: Denies arthralgias or myalgias Integumentary Denies rash Neurologic Neurologic: Reports weakness; Denies paresthesias EXAM <FELISA Diaz - Last Filed: 05/14/23 22:00> Physical Exam Const Vital Signs: 05/14/23 17:06 05/14/23 17:08 05/14/23 18:33 Temperature 96.8 F L 96.8 F L Temperature Source Temporal Temporal Pulse Rate 85 85 Respiratory Rate 18 16 Respiratory Effort Short of Breath Respiratory Pattern Tachypnea Blood Pressure 151/72 H 151/72 H Blood Pressure Mean 98 98 Pulse Ox 93 93 Oxygen Delivery Method Room Air Room Air Oxygen Flow Rate (L/min) 05/14/23 18:35 05/14/23 18:37 05/14/23 20:00 Temperature Temperature Source Pulse Rate 77 Respiratory Rate 16 Respiratory Effort Respiratory Pattern Blood Pressure 140/73 H Blood Pressure Mean 95 Pulse Ox 88 93 94 Oxygen Delivery Method Room Air Nasal Cannula Nasal Cannula Oxygen Flow Rate (L/min) 2 2 Positive well nourished, well developed and no apparent distress General Appearance ED: well developed HEENT Reports normocephalic and head/scalp atraumatic Mouth ED: Yes moist mucous membranes normal Eyes PERRL and EOMs intact bilaterally Neck full ROM and supple Chest Wall inspection of chest normal Resp normal respiratory effort and clear to auscultation bilaterally Cardio regular rate and regular rhythm GI soft to palpation, non-tender, non-distended and no masses Back/Spine normal ROM and normal to inspection Extremity normal to inspection and full ROM Neuro oriented x3, CN's II-XII intact bilaterally, moves all extremities, no focal motor deficits and no sensory deficits noted Sensorium / Orientation: awake and alert Psych mental status grossly normal and thought process normal Skin no rashes or lesions noted and no wounds <Dr. Sergei Barahona DO - Last Filed: 05/14/23 22:26> Physical Exam Const Vital Signs: 05/14/23 17:06 05/14/23 17:08 05/14/23 18:33 Temperature 96.8 F L 96.8 F L Temperature Source Temporal Temporal Pulse Rate 85 85 Respiratory Rate 18 16 Respiratory Effort Short of Breath Respiratory Pattern Tachypnea Blood Pressure 151/72 H 151/72 H Blood Pressure Mean 98 98 Pulse Ox 93 93 Oxygen Delivery Method Room Air Room Air Oxygen Flow Rate (L/min) 05/14/23 18:35 05/14/23 18:37 05/14/23 20:00 Temperature Temperature Source Pulse Rate 77 Respiratory Rate 16 Respiratory Effort Respiratory Pattern Blood Pressure 140/73 H Blood Pressure Mean 95 Pulse Ox 88 93 94 Oxygen Delivery Method Room Air Nasal Cannula Nasal Cannula Oxygen Flow Rate (L/min) 2 2 MDM <FELISA Diaz - Last Filed: 05/14/23 22:00> [facility] Narrative Medical decision making narrative: Patient presenting today due to flu like symptoms and shortness of breath on exertion. His symptoms do sound viral in nature. He is currently taking doxycycline. He is nontoxic-appearing and in no acute distress. He has been out of his Lasix for the past 2 days and takes 40 mg twice daily. He is afebrile, not hypoxic. Cardiac labs will be obtained. Chest x-ray be obtained to rule out infiltrate, pleural effusions, and other cardiopulmonary abnormality. COVID, RSV, and influenza swab will be obtained. He reports that his oxygen saturation at the urgent care was 89% on room air. Patient is currently 93% here on 2 L O2. Given he is on Xarelto, low suspicion for PE he does have a WBC of 12, BUN 36, creatinine 1.68 this is consistent with his CKD. Initial troponin is 132, repeat troponin 144. He was given aspirin. Given his elevated troponin and hypoxia I do think he would benefit from admission to the hospital. His chest x-ray is negative for acute findings. I will discuss patient with the hospitalist and he will be admitted in stable condition. Lab Data Attestation: I reviewed the patient's lab results. Labs: Laboratory Results - last 24 hr 05/14/23 05/14/23 18:05 20:05 WBC 12.0 H RBC 5.30 Hgb 15.1 Hct 47.9 MCV 90.4 MCH 28.5 MCHC 31.5 L RDW Std Deviation 51.1 H RDW Coeff of [place] 15.6 H Plt Count 181 MPV 11.6 Immature Gran % (Auto) 0.600 Neut % (Auto) 82.4 H Lymph % (Auto) 9.9 L [place] % (Auto) 5.8 Eos % (Auto) 0.7 Baso % (Auto) 0.6 Absolute Neuts (auto) 9.9 H Absolute Lymphs (auto) 1.19 Nucleated RBC % 0 Sodium 140 Potassium 4.1 Chloride 108 H Carbon Dioxide 30.0 Anion Gap 2 L BUN 36 H Creatinine 1.68 H Estim Creat Clear Calc 51.12 Est GFR (MDRD) Af Amer 52 L Est GFR (MDRD) Non-Af 43 L BUN/Creatinine Ratio 21.4 H Glucose 102 Calcium 9.3 Troponin I High Sens 132 H* 144 H* Radiography X-Ray: Read by ED Physician and Read by Radiologist Diagnostic Testing: Clinical Impression(s) from Imaging Studies Chest X-Ray 05/14/23 18:22 IMPRESSION: Mild chronic bibasilar interstitial thickening. No gross infiltration or pulmonary edema. Electronically Signed: Ellis Barriga MD at 18:48 EST , EKG Initial EKG: Comments: 60 bpm, ventricular paced rhythm, no ST elevation, reviewed and interpreted by attending ED physician <Dr. Sergei Barahona, DO - Last Filed: 05/14/23 22:26> [facility] Lab Data Labs: Laboratory Results - last 24 hr 05/14/23 05/14/23 18:05 20:05 WBC 12.0 H RBC 5.30 Hgb 15.1 Hct 47.9 MCV 90.4 MCH 28.5 MCHC 31.5 L RDW Std Deviation 51.1 H RDW Coeff of [place] 15.6 H Plt Count 181 MPV 11.6 Immature Gran % (Auto) 0.600 Neut % (Auto) 82.4 H Lymph % (Auto) 9.9 L [place] % (Auto) 5.8 Eos % (Auto) 0.7 Baso % (Auto) 0.6 Absolute Neuts (auto) 9.9 H Absolute Lymphs (auto) 1.19 Nucleated RBC % 0 Sodium 140 Potassium 4.1 Chloride 108 H Carbon Dioxide 30.0 Anion Gap 2 L BUN 36 H Creatinine 1.68 H Estim Creat Clear Calc 51.12 Est GFR (MDRD) Af Amer 52 L Est GFR (MDRD) Non-Af 43 L BUN/Creatinine Ratio 21.4 H Glucose 102 Calcium 9.3 Troponin I High Sens 132 H* 144 H* Radiography Diagnostic Testing: Clinical Impression(s) from Imaging Studies Chest X-Ray 05/14/23 18:22 IMPRESSION: Mild chronic bibasilar interstitial thickening. No gross infiltration or pulmonary edema. Electronically Signed: Ellis Barriga MD at 18:48 EST Reading Location ID and State: [address] [place] [address] Tel , Service support , Treatment and Re-Evaluation :: I have personally performed a face to face assessment of the patient and have reviewed the BERTHA Note. I performed a substantive portion of the visit including all aspects of the following. My padilla findings include: History: Patient presents with shortness of breath and myalgias that have been getting worse over the past 2 and half weeks. Patient states he went to an urgent care recently and had a negative influenza test. Patient states he feels tired all the time. Patient states it is gradually getting worse. Patient states it is better when he is able to sleep. Patient states nothing makes it worse. Patient admits to some subjective chills but denies any fevers. Patient admits to a cough and some shortness of breath. Patient denies any nausea or vomiting. Patient denies any chest pain. Patient states he has not taken his Lasix in the past couple days because he ran out of his medication and has not felt well enough to go get his prescription refilled. Exam: Vital signs are stable except for mildly elevated blood pressure 151/72. Patient is afebrile. Patient is in no acute distress. Oral mucosa is pink and moist. Neck is supple. Trachea is midline. There is no JVD. Heart was regular rate and rhythm. Lungs are clear and equal bilaterally. Abdomen is soft. Bowel sounds are normal. There is no tenderness. Cranial nerves II through XII are intact. There are no focal motor or sensory deficits noted. Medical Decision Making: Differential diagnosis includes viral infection, pneumonia, congestive heart failure, cardiac dysrhythmia, cardiac ischemia, electrolyte abnormality, and anxiety. EKG will be obtained to assess for cardiac dysrhythmia and cardiac ischemia. Chest x-ray will be obtained to assess for pneumonia and congestive heart failure. CBC will be obtained to assess for leukocytosis and anemia. Basic metabolic profile will be obtained to assess for electrolyte abnormality and renal function. High-sensitivity troponin will be obtained to assess for cardiac ischemia. COVID-19, influenza, and RSV PCR will be obtained to assess for viral infection. EKG was obtained. On my independent interpretation, it shows a paced rhythm with a rate of 68. There is left bundle branch block pattern noted. There is left axis deviation at -87. There are no acute ST or T wave changes noted. CBC was reviewed. There is a mild leukocytosis of 12.0. Basic metabolic profile was reviewed. BUN was 36 and creatinine was 1.68. These are consistent with prior results. High-sensitivity troponin was reviewed and was elevated at 132. 2-hour repeat high-sensitivity troponin was reviewed and was slightly elevated at 144. Because of this, I recommended admission to the hospital. Case was discussed with the hospitalist. She will admit the patient to her service. Patient understood and was agreeable with the plan. All questions were answered. Discharge Plan Dx/Rx/DC Orders Clinical Impression: Shortness of breath, Chronic anticoagulation, CKD (chronic kidney disease), Elevated troponin level Disposition Disposition: Acute Care Hospital [facility]
[2023-05-14 18:11] LABS: Absolute Lymphocyte Count 1.19 X10^3/uL (0.83-4.51); Absolute Neutrophil Count 9.9 X10^3/uL (2.0-7.7); Basophil# 0.07 X10^3/uL; Basophil% 0.6 % (0-1); Eosinophil# 0.08 X10^3/uL; Eosinophils% 0.7 % (0-5); Hematocrit 47.9 % (40-54); Hemoglobin 15.1 g/dL (13.0-16.5); Lymphocyte # 1.19 X10^3/ul (0.83-4.51); Lymphocyte % 9.9 % (19-41); Mean Corp Hgb Conc 31.5 g/dL (32-36); Mean Corpuscular Hgb 28.5 pg (27.0-32.0); Mean Corpuscular Volume 90.4 fL (80-94); Mean Platelet Vol. 11.6 fl (6.2-12.0); Monocyte% 5.8 % (0-10); NRBC Flagged by Analyzer 0 % (0-5); Neutrophil # 9.88 X10^3/uL (2.7-7.7); Neutrophil % 82.4 % (47-70); Platelet Count 181 K/mm3 (150-450); RBC Distribution Width CV 15.6 % (11.6-14.6); RBC Distribution Width SD 51.1 fl (35.1-43.9)
--- NOTE | 2023-05-14 18:22 | RAD_ITS ---
STUDY: X-RAY CHEST REASON FOR EXAM: Male, 72 years old. shortness of breath TECHNIQUE: PA and lateral COMPARISON: April 23, 2023 FINDINGS: Mild chronic interstitial changes in both lower lobes.. There is no demonstrated pleural abnormality. Postop change status post sternotomy and CABG Normal size heart. Normal mediastinum and nasrin. Normal visualized pulmonary arteries. Mildly calcified aortic arch and descending thoracic aorta. Pacer noted on the left with electrodes in satisfactory position Normal visualized thoracic spine. Normal visualized ribs, clavicles, and shoulders. There is no demonstrated abnormality of the visualized soft tissue structures of the upper abdomen. . RAD/Chest PA and Lateral IMPRESSION: Mild chronic bibasilar interstitial thickening. No gross infiltration or pulmonary edema. Electronically Signed: Ellis Barriga MD at 18:48 EST ,
[2023-05-14 18:48] LABS: Anion Gap 2 (5-15); BUN 36 mg/dL (7-18); BUN/Creat Ratio 21.4 RATIO (10-20); Calcium,Total 9.3 mg/dL (8.5-10.1); Chloride 108 mmol/L (98-107); Creatinine, Serum 1.68 mg/dL (0.70-1.30); EST Glomerular Filtration Rate 43 mL/min (>60); Est Glom Filt Rate - Afr Amer 52 mL/min (>60); Estimated Creatinine Clearance 51.12 ml/min; Glucose 102 mg/dL (74-106); Potassium 4.1 mmol/L (3.5-5.1); Sodium Level 140 mmol/L (136-145); Troponin-I HS 132 pg/mL (3.0-78.0)
--- OUTSIDE RECORDS SUMMARY | 2023-05-14 19:13 | XMS RPT_ITS | CCD ---
Author Name Unknown Address [address] [place] [address] Organization [facility] Care Team Providers Care Block Press Operator Name Role Phone [facility] EM Unavailable Unavailable María Hughes Unavailable Unavailable María Hughes Unavailable Unavailable María Hughes Unavailable Unavailable María Hughes Unavailable Unavailable Harish Rodriguez Unavailable Unavailable DAYANA AGUIRRE Attending Unavailable MARÍA HUGHES Primary Care Unavailable LUCIE VALIENTE Consulting Unavailable LUCIE VALIENTE Admitting Unavailable LUCIE VALIENTE Attending Unavailable MARÍA HUGHES Primary Care Unavailable MARÍA HUGHES Consulting Unavailable PHILIP PLUNEKTT Consulting Unavailable ADRIEN FREIRE Consulting Unavailable COSMO NICK Consulting Unavailable ELISE MARTIN Consulting Unavailable Unavailable Primary Care Provider UnavailSARITA Rosenberg Referring Unavailable Allergies Allergy Classification Reported Allergen(s) Allergy Type Date of Onset Reaction(s) Facility (3 sources) atorvastatin; Translations: [ATORVASTATIN CALCIUM] Drug Allergy 09-07-[address] [facility] Work Phone: (3 sources) Lanolin; Translations: [LANOLIN] Drug Allergy 02-15-[address] [facility] Work Phone: (3 sources) rosuvastatin; Translations: [ROSUVASTATIN CALCIUM] Drug Allergy 09-07-[address] [facility] Work Phone: Medications Current Medications Medication Drug Class(es) Dates Sig (Normalized) Sig (Original) doxycycline hyclate 100 mg oral tablet (1 source) Tetracycline-clas s Drug Start: 05-06-2023 End: 05-16-2023 take 1 tablet by mouth twice daily doxycycline (VIBRA-TABS) 100 mg tablet Take 1 tablet by mouth two times a day for 10 days. 20 tablet 0 05/06/2023 05/16/2023 Active Completed/Discontinued Medications Medication Drug Class(es) Dates Sig (Normalized) Sig (Original) acetaminophen 325 mg oral tablet (2 sources) Start: 02-25-2017 take 2 tablets by mouth every six hours as needed acetaminophen (TYLENOL) 325 mg tablet Take 2 tablets by mouth every 6 hours as needed for Pain. 0 02/25/2017 Active Problems Active Problems Problem Classification Problem Date Documented Date Episodic/Chronic Cardiac dysrhythmias (4 sources) Multiple premature ventricular complexes; Translations: [Ventricular premature depolarization] Onset: 03-31-2018 10-25-2013 Chronic Complication of device; implant or graft (2 sources) Atherosclerosis of coronary artery bypass graft(s) without angina pectoris; Translations: [Atherosclerosis of CABG w/o angina pectoris] Onset: 07-03-2017 Chronic Coronary atherosclerosis and other heart disease (4 sources) History of myocardial infarction; Translations: [Old myocardial infarction] Onset: 02-25-2017 02-25-2017 Chronic Diabetes mellitus with complications (2 sources) Insulin treated type 2 diabetes mellitus; Translations: [Uncontrolled type 2 diabetes mellitus with diabetic neuropathy, with long-term current use of insulin] Onset: 06-04-2017 08-06-2017 Chronic Diabetes mellitus without complication (2 sources) Type 2 diabetes mellitus without complications; Translations: [Type 2 diabetes mellitus without complications] Onset: 07-03-2017 Chronic Disorders of lipid metabolism (4 sources) Hyperlipidemia, unspecified; Translations: [Mixed hyperlipidemia] Onset: 02-20-2015 02-20-2015 Chronic Essential hypertension (4 sources) Essential (primary) hypertension; Translations: [Essential hypertension] Onset: 09-02-2015 09-02-2015 Chronic External Injury - Machinery (2 sources) Contact with other specified machinery, initial encounter; Translations: [Contact with other specified machinery, initial encounter] Onset: 07-03-2017 External Injury - Unspecified (2 sources) Civilian activity done for income or pay; Translations: [Civilian activity done for income or pay] Onset: 07-03-2017 Late effects of cerebrovascular disease (2 sources) History of ischemic cerebrovascular accident with residual deficit; Translations: [Unspecified sequelae of cerebral infarction] Onset: 08-02-2017 01-25-2018 Chronic Other inflammatory condition of skin (2 sources) Psoriasis; Translations: [Other psoriasis] Onset: 09-26-2007 10-25-2013 Chronic Other injuries and conditions due to external causes (2 sources) Unspecified injury of head, initial encounter; Translations: [Unspecified injury of head, initial encounter] Onset: 07-03-2017 Other lower respiratory disease (1 source) Cough; Translations: [Acute cough] 05-06-2023 Episodic Other nervous system disorders (2 sources) Idiopathic peripheral neuropathy; Translations: [Hereditary and idiopathic neuropathy, unspecified] 02-20-2015 Chronic Other nutritional; endocrine; and metabolic disorders (1 source) Weight gain; Translations: [Abnormal weight gain] 04-23-2023 Episodic Other upper respiratory infections (1 source) Chronic sinusitis, unspecified; Translations: [Unspecified sinusitis (chronic)] 05-06-2023 Chronic Pulmonary heart disease (2 sources) Pulmonary hypertension; Translations: [Pulmonary hypertension, unspecified] Onset: 08-16-2018 08-16-2018 Chronic Residual codes; unclassified (2 sources) H/O: Disorder; Translations: [Personal history of other specified conditions] 03-17-2021 Episodic Thyroid disorders (2 sources) Acquired hypothyroidism; Translations: [Hypothyroidism, unspecified] Onset: 02-20-2015 02-20-2015 Chronic Unclassified (1 source) Acute cough; Translations: [Acute cough] Onset: 05-06-2023 Past or Other Problems Problem Classification Problem Date Documented Date Episodic/Chronic Abdominal hernia (2 sources) Umbilical hernia without obstruction or gangrene; Translations: [Umbilical hernia without obstruction or gangrene] Onset: 07-03-2017 Episodic Allergic reactions (2 sources) Allergy status to other drugs, medicaments and biological substances status; Translations: [Allergy status to oth drug/meds/biol subst status] Onset: 07-03-2017 Episodic Deficiency and other anemia (2 sources) Iron deficiency anemia; Translations: [Iron deficiency anemia, unspecified] Onset: 09-08-2017 09-08-2017 Episodic Intracranial injury (2 sources) Concussion with loss of consciousness of unspecified duration, initial encounter; Translations: [Concussion w loss of consciousness of unsp duration, init] Onset: 07-03-2017 Episodic Open wounds of head; neck; and trunk (2 sources) Laceration without foreign body of scalp, initial encounter; Translations: [Laceration without foreign body of scalp, initial encounter] Onset: 07-03-2017 Episodic Other circulatory disease (2 sources) History of cerebrovascular accident; Translations: [Personal history of transient ischemic attack (TIA), and cerebral infarction without residual deficits] Onset: 02-09-2017 04-11-2018 Episodic Other connective tissue disease (2 sources) Plantar fasciitis of left foot; Translations: [Plantar fascial fibromatosis] Onset: 09-08-2016 08-06-2017 Episodic Other inflammatory condition of skin (2 sources) Seborrheic dermatitis; Translations: [Seborrheic dermatitis, unspecified] Onset: 09-26-2007 10-25-2013 Episodic Other lower respiratory disease (2 sources) Multiple nodules of lung; Translations: [Other nonspecific abnormal finding of lung field] Onset: 09-30-2016 02-13-2018 Episodic Other non-traumatic joint disorders (2 sources) Pain in left shoulder; Translations: [Pain in left shoulder] Onset: 07-03-2017 Episodic Other screening for suspected conditions (not mental disorders or infectious disease) (4 sources) Patient encounter status; Translations: [Encounter for screening for malignant neoplasm of colon] Onset: 06-20-2014 06-20-2014 Episodic Other skin disorders (2 sources) Acne; Translations: [Other acne] Onset: 09-26-2007 10-25-2013 Episodic Other skin disorders (2 sources) Disorder of sebaceous gland; Translations: [Other specified follicular disorders] Onset: 09-26-2007 10-25-2013 Episodic Other skin disorders (2 sources) Disorder of nail; Translations: [Other nail disorders] Onset: 09-26-2007 10-25-2013 Episodic Other skin disorders (2 sources) Seborrheic keratosis; Translations: [Other seborrheic keratosis] Onset: 12-16-2007 10-25-2013 Episodic Screening and history of mental health and substance abuse codes (2 sources) Ex-smoker; Translations: [Personal history of nicotine dependence] Onset: 09-08-2016 09-08-2016 Episodic Skin and subcutaneous tissue infections (2 sources) Pyoderma; Translations: [Pyoderma] Onset: 09-26-2007 10-25-2013 Episodic Superficial injury; contusion (4 sources) Abrasion of left wrist, initial encounter; Translations: [Abrasion of left shoulder, initial encounter] Onset: 07-03-2017 Episodic Results Test Name Value Interpretation Reference Range Facil ity Vital Signs Date Time Vital Sign Value Performing Clinician Colt hansen 05-06-2023 13:56-0500 Body temperature 97 [degF] Sarita Phipps VACUUM REPAIRER.PLANT PATHOLOGIST Work Phone: [facility] 05-06-2023 13:56-0500 Body weight 107.41 kg Sarita Phipps VACUUM REPAIRER.PLANT PATHOLOGIST Work Phone: [facility] 05-06-2023 13:56-0500 Diastolic blood pressure 52 mm[Hg] Sarita Phipps VACUUM REPAIRER.PLANT PATHOLOGIST Work Phone: [facility] 05-06-2023 13:56-0500 Heart rate 54 /min Sarita Phipps VACUUM REPAIRER.PLANT PATHOLOGIST Work Phone: [facility] 05-06-2023 13:56-0500 Respiratory rate 18 /min Sarita Phipps VACUUM REPAIRER.PLANT PATHOLOGIST Work Phone: [facility] 05-06-2023 13:56-0500 SaO2% (BldA) [Mass fraction] 96 % Sarita Phipps VACUUM REPAIRER.PLANT PATHOLOGIST Work Phone: [facility] 05-06-2023 13:56-0500 Systolic blood pressure 100 mm[Hg] Sarita Phipps VACUUM REPAIRER.PLANT PATHOLOGIST Work Phone: [facility] 04-23-2023 07:29-0500 Body temperature 97.59 [degF] Lizeth Hernandez VACUUM REPAIRER.PLANT PATHOLOGIST Work Phone: [facility] 04-23-2023 07:29-0500 Body weight 111.13 kg Lizeth Hernandez VACUUM REPAIRER.PLANT PATHOLOGIST Work Phone: [facility] 04-23-2023 07:29-0500 Diastolic blood pressure 72 mm[Hg] Lizeth Hernandez VACUUM REPAIRER.PLANT PATHOLOGIST Work Phone: [facility] 04-23-2023 07:29-0500 Heart rate 111 /min Lizteh Hernandez VACUUM REPAIRER.PLANT PATHOLOGIST Work Phone: [facility] 04-23-2023 07:29-0500 Respiratory rate 16 /min Lizeth Hernandez APRN.CNP Work Phone: [facility] 04-23-2023 07:29-0500 SaO2% (BldA) [Mass fraction] 96 % Lizeth Hernandez APRN.CNP Work Phone: [facility] 04-23-2023 07:29-0500 Systolic blood pressure 122 mm[Hg] Lizeth Hernandez APRN.PLANT PATHOLOGIST Work Phone: [facility] Encounters Encounter Date Encounter Type Care Provider Facility Start: 05-06-2023 End: 05-06-2023 ambulatory SARITA PHIPPS Facility:[facility] Start: 05-06-2023 End: 05-06-2023 Patient encounter procedure Sarita Phipps APRN.CNP Work Phone: [facility] Procedures Date Procedure Procedure Detail Performing Clinician Start: 05-06-2023 INFLUENZA A&B MOLECU LAR (POC) Sarita Phipps APRN.PLANT PATHOLOGIST Work Phone: Start: 02-25-2017 History of coronary artery bypass grafting S/P CABG x 3 Lizeth Hernandez APRN.CNP Work Phone: Plan of Treatment Date Care Activity Detail Author Start: 07-04-2027 Urine microalbumin profile DTa P,Tdap,Td Vaccine (3 - Td or Tdap) [facility] Start: 05-06-2024 BP Controlled (<130/80) BP Controlle d (<130/80) [facility] Start: 04-23-2024 BP Controlled (<130/80) BP Controlle d (<130/80) [facility] Start: 03-22-2023 Advance Directive Discussion Advance Directive Discussion [facility] Start: 03-22-2023 Depression Assessment Depression Ass essment 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 Start: 06-01-2019 Diabetic foot examination Diabetic F oot Exam [facility] Start: 05-22-2019 Hepatitis B screening Urine Al bumin:Creatinine Ratio [facility] Start: 05-22-2019 Hepatitis B surface antibody level LDL Cholesterol [facility] Start: 03-01-2019 Screening for malign ant neoplasm of colon [facility] Start: 11-21-2018 Hemoglobin A1c measurement HbA1C [facility] Start: 08-31-2018 Glaucoma screening Dilated Retinal E xam [facility] Start: 2010 RSV Vaccine (1 - 1-d ose 60+ series) RSV Vaccine (1 - 1-dose 60+ series) [facility] Start: 2000 Shingrix Vaccine (1 of 2) Brink grix Vaccine (1 of 2) [facility] Start: 08-30-1995 Screening for malign ant neoplasm of colon [facility] Start: 02-28-1951 Covid-19 Vaccine (#1) Covid-19 Vacci ne (#1) [facility] Start: 1950 Abdominal aortic ane urysm screening Abdominal Aortic Aneurysm Screening [facility] Immunizations Immunization Date Immunization Notes Care Provider Fa ariela 05-31-2018 pneumococcal polysaccharide vaccine, 23 valent Lizeth Hernandez APRN.[facility] Work Phone: [facility] 07-03-2017 tetanus toxoid, redu anabel diphtheria toxoid, and acellular pertussis vaccine, adsorbed Lizeth Hernandez APRN.[facility] Work Phone: [facility] 06-20-2014 pneumococcal conjuga te vaccine, 13 valent Lizeth Hernandez APRN.[facility] Work Phone: [facility] Work Phone: 04-26-2013 pneumococcal polysaccharide vaccine, 23 valent Lizeth Hernandez APRN.[facility] Work Phone: [facility] Work Phone: 02-15-2008 hepatitis B vaccine, adult dosage Lizeth Hernandez APRN.PLANT PATHOLOGIST Work Phone: [facility] Work Phone: 12-14-2007 hepatitis A vaccine, unspecified formulation Lizeth Hernandez APRN.PLANT PATHOLOGIST Work Phone: [facility] Work Phone: 12-14-2007 hepatitis B vaccine, adult dosage Lizeth Hernandez APRN.[facility] Work Phone: [facility] Work Phone: 05-24-2007 hepatitis A vaccine, unspecified formulation Lizeth Hernandez APRN.[facility] Work Phone: [facility] Work Phone: 05-24-2007 hepatitis B vaccine, adult dosage Lizeth Hernandez APRN.PLANT PATHOLOGIST Work Phone: [facility] Work Phone: 12-15-2006 pneumococcal polysaccharide vaccine, 23 valent Lizeth Hernandez APRN.PLANT PATHOLOGIST Work Phone: [facility] Work Phone: 12-15-2006 tetanus toxoid, redu anabel diphtheria toxoid, and acellular pertussis vaccine, adsorbed Lizeth Hernandez APRN.[facility] Work Phone: [facility] Work Phone: 01-22-2006 influenza virus vacc ine, unspecified formulation Lizeth Hernandez APRN.[facility] Work Phone: [facility] Work Phone: Payers Date Payer Category Payer Unknown [employer] PPO OOS [id number] 2023-Present [phone] [id number] [place] [address] PPO [id number] 2023 Unknown [id number] 2018 Unknown [id number] 1950 Unknown [id number] 1950 Unknown [id number] Worker's Compensation Social History Date Type Detail Facility Start: [facility]-23-2023 [facility] History of tobacco use Current smoker [facility] Start: 04-23-2023 Tobacco use and exposure Formjuan r smokeless tobacco user [facility] History of tobacco use Snuff User [facility] History of tobacco use Chews Tobacco [facility] Start: 04-23-2023 End: 05-06-2023 Alcohol intake Current non-drinker of alcohol (finding) [facility] Start: 02-27-2020 End: 04-23-2023 History of Social function [facility] Start: 02-27-2020 End: 04-23-2023 Tobacco use panel [facility] Adult Depression Scr eening Assessment [address] [facility] Start: 1950 Sex Assigned At Not on file C [facility] Medical Equipment Procedure Code Equipment Code Equipment Origin al Text Equipment Identifier Dates Start: 08-03-2018 Progress note 05-06-2023 Note Date & Type Note Facility 05-06-2023 Note HNO ID: [id number] Author: ANAMIKA JIMENEZ RT(R) Service: ? Author Type: [facility] [employer] Type: Progress Notes Filed: 05/06/2023 14:33 Note Text: Radiology Service Progress Note PATIENT NAME: Micky Roldan DATE OF SERVICE: May 06, 2023 TIME: 2:33 PM PATIENT IDENTITY VERIFICATION COMPLETED USING TWO (2) IDENTIFIERS: Name and Date of confirmed by patient verbally. FALL SCREENING: Has the patient had 2 falls in the last year or 1 fall with injury or currently using an Ambulatory Assistive Device (Walker, Cane, Wheelchair, Crutches, etc.)? No PATIENT GENDER DATA: Male PATIENT RELEVANT IMPLANT DATA REVIEWED: Yes PATIENT PRESENTS WITH AN IMPLANTABLE OR ATTACHED CERAMIC ENGINEERING PROFESSOR: No RADIOLOGY DEPARTMENT: General X-ray: Exam(s) Completed: Chest X-Ray PERIPHERAL IV DATA: Not applicable SIGNED BY: RT Ashley(R) May 06, 2023 2:33 PM [facility] Progress note 05-06-2023 Note Date & Type Note Facility 05-06-2023 Note HNO ID: [id number] Author: SARITA PHIPPS APRN.ROCIO Service: ? Author Type: Nurse Practitioner Type: Progress Notes Filed: 05/06/2023 16:34 Note Text: This note was created using NoteWriter. Subjective Micky Roldan is a 72 year old male. 72 year old male with PMH of DM, CKD, CHF, IA, CABG, and former smoker presents today with acute onset URI symptoms for one week. States symptoms go better two days ago and then got worse yesterday. Pertinent positives include productive cough with white sputum, fatigue/malaise, body aches, chills, nasal congestion, sinus pressure, and rhinorrhea with white drainage. Pertinent negatives include dyspnea, chest pain, dizziness, edema, GI upset, fever, ear pain, and ear drainage. The history is provided by the patient. URI He complains of cough and sputum production. There is no chest tightness, difficulty breathing or shortness of breath. This is a new problem. The current episode started 1 to 4 weeks ago. The problem occurs constantly. The problem has been gradually worsening. The cough is productive of sputum (white). Associated symptoms include headaches, malaise/fatigue, myalgias, nasal congestion and rhinorrhea. Pertinent negatives include no appetite change, chest pain, dyspnea on exertion, ear congestion, ear pain or fever. His symptoms are aggravated by nothing. His symptoms are alleviated by nothing. There is no history of asthma or COPD. PAST MEDICAL HISTORY Diagnosis Date ACNE NEC 09/26/2007 Acquired hypothyroidism 02/20/2015 Coronary artery disease due to lipid rich plaque 02/25/[address] Milton DISEASES OF NAIL NEC 09/26/2007 Essential hypertension with goal blood pressure less than 130/85 09/02/2015 H/O balance disorder chronic due to frequent ear infections in the past. History of IA (myocardial infarction) 02/25/201701/2017 Idiopathic peripheral neuropathy Ischemic cerebrovascular accident (CVA) ([facility]) 08/02/201707/2017: left temporal Mixed hyperlipidemia 02/20/2015 Multiple lung nodules 09/30/[address] 09/2016, repeat CT 03/2017 Other psoriasis 09/26/2007 PRURITIC DISORDER NOS 09/26/2007 PVC (premature ventricular contraction) PYODERMA NOS 09/26/2007 Right-sided cerebrovascular accident (CVA) ([facility]) 02/09/2017 MRI at [place] 01/2017 showed right cortical stroke. S/P CABG x 3 02/25/2017 01/22/2017 Following [facility]. SEBORRHEIC DERMATITIS NOS 09/26/2007 SEBORRHEIC KERATOSIS NOS 12/16/2007 Shoulder pain 05/05/2013 SOLAR LENGINES////DYSCHROMIA OTHER 12/16/2007 Uncontrolled type 2 diabetes mellitus with diabetic neuropathy, with long-term current use of insulin 06/04/2017 PAST SURGICAL HISTORY Procedure Laterality Date 2D ECHO (EXEP) 01/2017 EF=50-55%, with nl function 2D ECHO (EXEP) 08/02/2017 EF=53%, mild infante dysf, mild IA and TI PAST SURGICAL HISTORY OF 01/22/2017 CABG x3 ALLERGIES Crestor [Rosuvastatin Calcium], Lanolin, and Lipitor [Atorvastatin Calcium] MEDICATIONS empagliflozin (JARDIANCE) 25 mg tablet Take 0.5 tablets by mouth once daily. furosemide (LASIX) 40 mg tablet Take 1 tablet by mouth twice a day for 30 days. If increased leg swelling or weight gain of 5 pounds in 1 week occurs, take 2 tablets at 10 insulin aspart prot/insuln asp (NOVOLOG MIX 70-30 SUBCUTANEOUS) Inject subcutaneously. blood sugar diagnostic (FREESTYLE LITE STRIPS) test strip Test blood sugar 3-4 times daily Dx E11.40 on insulin levothyroxine (SYNTHROID) 125 mcg tablet TAKE 1 TABLET BY MOUTH ONCE DAILY. TAKE ON EMPTY STOMACH. FOR THYROID. metFORMIN (GLUCOPHAGE) 500 mg tablet Take 2 tablets by mouth twice daily. insulin needles, DISPOSABLE, (PEN NEEDLE) 31 gauge x 08/04 ndle Use with 75/25 twice daily ezetimibe (ZETIA) 10 mg tablet Take 1 tablet by mouth once daily. Per cardio losartan (COZAAR) 25 mg tablet Take 1 tablet by mouth once daily. Per cardio metoprolol tartrate, short acting, (LOPRESSOR) 25 mg tablet Take 1 tablet by mouth twice daily. Per cardio isosorbide mononitrate ER (IMDUR) 30 mg 24 hr tablet Take 1 tablet by mouth once daily. Per cardio nitroglycerin sublingual (NITROQUICK) 0.4 mg SL tablet Dissolve 1 tablet under the tongue every 5 minutes as needed for Chest Pain. Per cardio aspirin, enteric coated (ASPIRIN LOW DOSE) 81 mg EC tablet Take 81 mg by mouth once daily. acetaminophen (TYLENOL) 325 mg tablet Take 2 tablets by mouth every 6 hours as needed for Pain. MULTIVIT-MINERALS/FERROUS FUM (MULTI VITAMIN ORAL) Take by mouth. clopidogrel (PLAVIX) 75 mg tablet Take 1 tablet by mouth once daily. (Patient not taking: Reported on 04/23/2023) insulin 75/25 lispro protamine/lispro units/mL (HUMALOG MIX 75-25 KWIKPEN) 100 unit/mL (75-25) inpn 34 units in AM and 30 units in the PM (Patient not taking: Reported on 04/23/2023) meclizine (ANTIVERT) 12.5 mg tab 3 TIMES DAILY NEEDED PRN For Dizziness (Patient not taking: Reported on 04/23/2023) FAMILY HISTORY Problem Relation A (more content not included)... [facility] History of Present illness Narrative 05-06-2023 Sarita Phipps APRN.PLANT PATHOLOGIST - 05/06/2023 2:15 PM EST Note Date & Type Note Facility 05-06-2023 History of Presen t illness Narrative This note was created using BrightNestriter. Subjective Micky Roldan is a 72 year old male. 72 year old male with PMH of DM, CKD, CHF, IA, CABG, and former smoker presents today with acute onset URI symptoms for one week. States symptoms go better two days ago and then got worse yesterday. Pertinent positives include productive cough with white sputum, fatigue/malaise, body aches, chills, nasal congestion, sinus pressure, and rhinorrhea with white drainage. Pertinent negatives include dyspnea, chest pain, dizziness, edema, GI upset, fever, ear pain, and ear drainage. The history is provided by the patient. URI He complains of cough and sputum production. There is no chest tightness, difficulty breathing or shortness of breath. This is a new problem. The current episode started 1 to 4 weeks ago. The problem occurs constantly. The problem has been gradually worsening. The cough is productive of sputum (white). Associated symptoms include headaches, malaise/fatigue, myalgias, nasal congestion and rhinorrhea. Pertinent negatives include no appetite change, chest pain, dyspnea on exertion, ear congestion, ear pain or fever. His symptoms are aggravated by nothing. His symptoms are alleviated by nothing. There is no history of asthma or COPD. PAST MEDICAL HISTORY Diagnosis Date ACNE NEC 09/26/2007 Acquired hypothyroidism 02/20/2015 Coronary artery disease due to lipid rich plaque 02/25/[address] Milton DISEASES OF NAIL NEC 09/26/2007 Essential hypertension with goal blood pressure less than 130/85 09/02/2015 H/O balance disorder chronic due to frequent ear infections in the past. History of IA (myocardial infarction) 02/25/201701/2017 Idiopathic peripheral neuropathy Ischemic cerebrovascular accident (CVA) ([facility]) 08/02/201707/2017: left temporal Mixed hyperlipidemia 02/20/2015 Multiple lung nodules 09/30/[address] 09/2016, repeat CT 03/2017 Other psoriasis 09/26/2007 PRURITIC DISORDER NOS 09/26/2007 PVC (premature ventricular contraction) PYODERMA NOS 09/26/2007 Right-sided cerebrovascular accident (CVA) ([facility]) 02/09/2017 MRI at [place] 01/2017 showed right cortical stroke. S/P CABG x 3 02/25/2017 01/22/2017 Following [facility]. SEBORRHEIC DERMATITIS NOS 09/26/2007 SEBORRHEIC KERATOSIS NOS 12/16/2007 Shoulder pain 05/05/2013 SOLAR LENGINES////DYSCHROMIA OTHER 12/16/2007 Uncontrolled type 2 diabetes mellitus with diabetic neuropathy, with long-term current use of insulin 06/04/2017 PAST SURGICAL HISTORY Procedure Laterality Date 2D ECHO (EXEP) 01/2017 EF=50-55%, with nl function 2D ECHO (EXEP) 08/02/2017 EF=53%, mild infante dysf, mild IA and TI PAST SURGICAL HISTORY OF 01/22/2017 CABG x3 ALLERGIES Crestor [Rosuvastatin Calcium], Lanolin, and Lipitor [Atorvastatin Calcium] MEDICATIONS empagliflozin (JARDIANCE) 25 mg tablet Take 0.5 tablets by mouth once daily. furosemide (LASIX) 40 mg tablet Take 1 tablet by mouth twice a day for 30 days. If increased leg swelling or weight gain of 5 pounds in 1 week occurs, take 2 tablets at 10 insulin aspart prot/insuln asp (NOVOLOG MIX 70-30 SUBCUTANEOUS) Inject subcutaneously. blood sugar diagnostic (FREESTYLE LITE STRIPS) test strip Test blood sugar 3-4 times daily Dx E11.40 on insulin levothyroxine (SYNTHROID) 125 mcg tablet TAKE 1 TABLET BY MOUTH ONCE DAILY. TAKE ON EMPTY STOMACH. FOR THYROID. metFORMIN (GLUCOPHAGE) 500 mg tablet Take 2 tablets by mouth twice daily. insulin needles, DISPOSABLE, (PEN NEEDLE) 31 gauge x 5/16 ndle Use with 75/25 twice daily ezetimibe (ZETIA) 10 mg tablet Take 1 tablet by mouth once daily. Per cardio losartan (COZAAR) 25 mg tablet Take 1 tablet by mouth once daily. Per cardio metoprolol tartrate, short acting, (LOPRESSOR) 25 mg tablet Take 1 tablet by mouth twice daily. Per cardio isosorbide mononitrate ER (IMDUR) 30 mg 24 hr tablet Take 1 tablet by mouth once daily. Per cardio nitroglycerin sublingual (NITROQUICK) 0.4 mg SL tablet Dissolve 1 tablet under the tongue every 5 minutes as needed for Chest Pain. Per cardio aspirin, enteric coated (ASPIRIN LOW DOSE) 81 mg EC tablet Take 81 mg by mouth once daily. acetaminophen (TYLENOL) 325 mg tablet Take 2 tablets by mouth every 6 hours as needed for Pain. MULTIVIT-MINERALS/FERROUS FUM (MULTI VITAMIN ORAL) Take by mouth. clopidogrel (PLAVIX) 75 mg tablet Take 1 tablet by mouth once daily. (Patient not taking: Reported on 04/23/2023) insulin 75/25 lispro protamine/lispro units/mL (HUMALOG MIX 75-25 KWIKPEN) 100 unit/mL (75-25) inpn 34 units in AM and 30 units in the PM (Patient not taking: Reported on 04/23/2023) meclizine (ANTIVERT) 12.5 mg tab 3 TIMES DAILY NEEDED PRN For Dizziness (Patient not taking: Reported on 04/23/2023) FAMILY HISTORY Problem Relation Age of Onset other (toxic shock) Mother None Father Thyroid Sister Social History Tobacco Use Smoking status: Former Smokeless tobacco: Former Types: Snuff, Chew Substance Use Topics Alcohol use: No Drug use: No Review of Systems Constitutional: Positive for activity change, chills, fatigue and malaise/fatigue. Negative for appetite change and fever. HENT: Positive for congestion, rhinorrhea and sinus pressure. Negative for ear discharge, ear pain and sinus pain. Eyes: Negative for pain, discharge, redness and itching. Respiratory: Positive for cough and sputum production. Negative for chest tightness and shortness of breath. Cardiovascular: Negative for chest pain, dyspnea on exertion, palpitations and leg swelling. Gastrointestinal: Positive for diarrhea. Negative for abdominal pain, constipation, nausea and vomiting. Diarrhea is baseline from metformin Genitourinary: Negative for decreased urine volume. Musculoskeletal: Positive for arthralgias and myalgias. Skin: Negative for color change. Neurological: Positive for headaches. Negative for dizziness and light-headedness. Objective BP 100/52 Pulse (!) 54 Temp 36.1 C (97 F) Resp 18 Wt 107.4 kg (236 lb 12.8 oz) SpO2 96% BMI 31.24 kg/m Physical Exam Vitals reviewed. Constitutional: General: He is awake. He is not in acute distress. Appearance: Normal appearance. He is normal weight. He is not ill-appearing, toxic-appearing or diaphoretic. HENT: Head: Normocephalic. Right Ear: Hearing, ear canal and external ear normal. No decreased hearing noted. No laceration, drainage, swelling or tenderness. No middle ear effusion. There is no impacted cerumen. No foreign body. No mastoid tenderness. No PE tube. No hemotympanum. Tympanic membrane is erythematous. Tympanic membrane is not injected, scarred, perforated, retracted or bulging. Tympanic membrane has normal mobility. Left Ear: Hearing, ear canal and external ear normal. No decreased hearing noted. No laceration, drainage, swelling or tenderness. No middle ear effusion. There is no impacted cerumen. No foreign body. No mastoid tenderness. No PE tube. No hemotympanum. Tympanic membrane is erythematous. Tympanic membrane is not injected, scarred, perforated, retracted or bulging. Tympanic membrane has normal mobility. Nose: Congestion and rhinorrhea present. No nasal deformity, septal deviation, signs of injury, laceration, nasal tenderness or mucosal edema. Rhinorrhea is clear. Right Nostril: No foreign body, epistaxis, septal hematoma or occlusion. Left Nostril: No foreign body, epistaxis, septal hematoma or occlusion. Right Turbinates: Swollen. Not enlarged or pale. Left Turbinates: Swollen. Not enlarged or pale. Right Sinus: No maxillary sinus tenderness or frontal sinus tenderness. Left Sinus: No maxillary sinus tenderness or frontal sinus tenderness. Mouth/Throat: Lips: [place]. No lesions. Mouth: Mucous membranes are moist. No oral lesions. Tongue: No lesions. Palate: No lesions. Pharynx: Oropharynx is clear. Uvula midline. Posterior oropharyngeal erythema present. No pharyngeal swelling, oropharyngeal exudate or uvula swelling. Tonsils: No tonsillar exudate or tonsillar abscesses. 1+ on the right. 1+ on the left. Eyes: General: Lids are normal. No scleral icterus. Right eye: No foreign body, discharge or hordeolum. Left eye: No foreign body, discharge or hordeolum. Conjunctiva/sclera: Conjunctivae normal. Right eye: Right conjunctiva is not injected. No chemosis, exudate or hemorrhage. Left eye: Left conjunctiva is not injected. No chemosis, exudate or hemorrhage. Cardiovascular: Rate and Rhythm: Bradycardia present. Rhythm irregular. Pulses: Normal pulses. Heart sounds: Normal heart sounds, S1 normal and S2 normal. Heart sounds not distant. No murmur heard. No friction rub. No gallop. No S3 or S4 sounds. Pulmonary: Effort: Pulmonary effort is normal. No tachypnea, bradypnea, accessory muscle usage, prolonged expiration, respiratory distress or retractions. Breath sounds: No stridor or decreased air movement. Examination of the right-upper field reveals decreased breath sounds. Examination of the left-upper field reveals decreased breath sounds. Examination of the right-middle field reveals decreased breath sounds. Examination of the right-lower field reveals decreased breath sounds. Examination of the left-lower field reveals decreased breath sounds. Decreased breath sounds present. No wheezing, rhonchi or rales. Comments: Lung sounds are clear/diminished throughout. Chest: Chest wall: No tenderness. Musculoskeletal: General: Normal range of motion. Cervical back: Normal range of motion. No tenderness. Lymphadenopathy: Head: Right side of head: Submental adenopathy present. No submandibular, tonsillar, preauricular, posterior auricular or occipital adenopathy. Left side of head: Submental adenopathy present. No submandibular, tonsillar, preauricular, posterior auricular or occipital adenopathy. Cervical: No cervical adenopathy. Right cervical: No superficial, deep or posterior cervical adenopathy. Left cervical: No superficial, deep or posterior cervical adenopathy. Skin: General: Skin is warm and dry. Capillary Refill: Capillary refill takes less than 2 seconds. Coloration: Skin is pale. Neurological: General: No focal deficit present. Mental Status: He is alert and oriented to person, place, and time. Mental status is at baseline. Motor: No weakness. Coordination: Coordination normal. Gait: Gait normal. Psychiatric: Mood and Affect: Mood normal. Behavior: Behavior normal. Behavior is cooperative. Thought Content: Thought content normal. Judgment: Judgment normal. Assessment and Plan ASSESSMENT/PLAN: 1. Acute cough - ICD9: 786.2, ICD10: R05.1 - Acute onset URI symptoms that started one week ago including productive cough with green sputum, nasal congestion, headache, fatigue and body aches. He improved 2 days ago and then got worse yesterday. Denies dyspnea. - Former smoker, history of CHF and DM - Vitals this visit 100/52 pulse 54 temp 97 SpO2 96% RR 18 - Per patient Home BP logs have similar pulse reading and SBP in 110s - Lungs are clear and diminished, TM erythematous but not bulging bilaterally, pharynx erythematous, in no acute distress - INFLUENZA A&B MOLECULAR (POC)- negative - XR CHEST 2V FRONTAL/LAT- No acute radiographic abnormality. No consolidation. No lung mass. No pleural effusion. No pneumothorax. - Start doxycycline - Got to ED if experiencing shortness of breath, dizziness, weakness or chest pain 2. Rhinosinusitis - ICD9: 473.9, ICD10: J32.9 - Acute onset URI symptoms for one week. Symptoms improved for one day then got worse yesterday. - Lungs are clear and diminished, TM erythematous but not bulging bilaterally, pharynx erythematous, in no acute distress. - Will begin treatment with Doxycycline - Return if symptoms worsen or do not improve Shira Torres TEACHING PROVIDER (Physician/PA/VACUUM REPAIRER) NOTE OF PERSONAL INVOLVEMENT IN CARE: I have personally seen and examined the patient and performed the medical decision-making components. I have reviewed the Advanced Practice Registered Nurse (VACUUM REPAIRER) Student's documentation and verified the findings in the note as written. Any additions or changes are noted in bold/italics. Signature: Sarita Phipps Date: 05/06/2023 Time: 4:34 PM documented in this encounter [facility] Progress note 04-23-2023 Note Date & Type Note Facility 04-23-2023 Note HNO ID: [id number] Author: LIZETH HERNANDEZ APRN.PLANT PATHOLOGIST Service: ? Author Type: Nurse Practitioner Type: Progress Notes Filed: 04/23/2023 07:38 Note Text: Patient came in with complaints of chest congestion cough and shortness of breath. Patient did recently get off her water pill. Patient says that he has gained 10 pounds in 3 days. At this time patient is being referred to the emergency room for full evaluation. Patient was okay with this care plan. [facility] History of Present illness Narrative 04-23-2023 Lizeth Hernandez APRN.PLANT PATHOLOGIST - 04/23/2023 7:37 AM EST Note Date & Type Note Facility 04-23-2023 History of Presen t illness Narrative Patient came in with complaints of chest congestion cough and shortness of breath. Patient did recently get off her water pill. Patient says that he has gained 10 pounds in 3 days. At this time patient is being referred to the emergency room for full evaluation. Patient was okay with this care plan. documented in this encounter [facility] History of Past illness Narrative 09-02-2015 Note Date & Type Note Facility documented as of this encounter (statuses as of 04/23/2023) [facility] History of Past illness Narrative 09-02-2015 Note Date & Type Note Facility documented as of this encounter (statuses as of 05/06/2023) [facility] Evaluation note Note Date & Type Note Facility documented in this encounter [facility] Evaluation note Note Date & Type Note Facility documented in this encounter [facility] Summary Purpose Family History No Family History [...] DATE CREATED AUTHOR AUTHOR'S ORGANIZ ATION 11/01/2017 [facility] DATE CREATED AUTHOR AUTHOR'S ORGANIZ ATION 04/20/2018 [facility] ([place] DATE CREATED AUTHOR AUTHOR'S ORGANIZ ATION 05/08/2023 [facility] Source Comments (unrecognize d section and content) In the event this informatio n is protected by the Federal Confidentiality of Alcohol and Drug Abuse Patient Records regulations: The Federal rules restrict any use of the information to criminally investigate or prosecute any alcohol or drug abuse patient.[facility] the event this information is protected by the Federal Confidentiality of Alcohol and Drug Abuse Patient Records regulations: The Federal rules restrict any use of the information to criminally investigate or prosecute any alcohol or drug abuse patient.[facility] Reason for Visit (unrecogniz ed section and content) Reason Comments Head Congestion Bodyaches, congestio n, cough, IGNACIO x1 week FOR RECORDS PERTAINING TO PATIENTS WHO ARE [...] BE BASED ON THE PRIMARY CLINICAL RECORDS. [employer] [facility]. provides no warranty or guarantee of the accuracy or completeness of information in this document.
[2023-05-14] MEDS: Aspirin 325 MG Tablet PO (20:01)
[2023-05-14 20:34] LABS: Troponin-I HS 144 pg/mL (3.0-78.0)
--- NOTE | 2023-05-14 21:22 | HP.PCM.HOS_ITS ---
HPI - General General Date of Admission: 05/14/23 Date of Service: 05/14/23 Chief Complaint: Cough, dyspnea, fatigue. HPI Narrative The patient is a 72 y/o M w/ PMHx: HFpEF, CKD stage III unclear subtype, WILLIAN on BIPAP q HS, Former tobacco use, CKD stage III unclear subtype, Obesity, CAD s/p CABG and PCI, HTN, HLD, Diabetes mellitus type II, Hx LLE DVT with thrombectomy, Hx CVA, BPH, Hypothyroidism, PAF/Flutter who presents to the [facility] ED on 05/14/23 with history of onset of flulike symptoms the week prior with urgent care evaluation with chest x-ray and influenza swab with no evidence of any pneumonia and negative influenza assessment however was started on doxycycline which she started with some improvement of his nasal congestion but still has an ongoing productive cough with ongoing fatigue, malaise and shortness of breath worse with exertion with no specific increased lower extremity swelling orthopnea with underlying history of heart failure however he does report he is been out of his Lasix for 2 days and given ongoing symptoms prompted ED evaluation. Workup in the ED included T96.8, heart rate 85, BP 151/72, respiratory rate 18, initially 93% on room air however desaturated at rest 88% eventually improving to 93% on 2 L nasal cannula, CBC with WBC 12, hemofifteen 0.1, platelet 181 with left shift, BMP with chloride 108, BUN/creatinine 36/1.68, troponin initial 132 with delta repeat 144 and prior to this noted 04/23/2023 troponin 45, chest x-ray with mild chronic bibasilar interstitial thickening with no acute cardiopulmonary findings, SARS COVID/influenza/RSV PCR negative, EKG with paced rhythm with no acute evidence of ischemia. In the ED full-strength aspirin therapy administered. [facility] Medical History (HFpEF) heart failure with preserved ejection fraction Aftercare following surgery of the circulatory system Atherosclerosis of [place] coronary artery of [place] heart without angina pectoris Atrial flutter Atrial flutter by electrocardiogram BPH (benign prostatic hyperplasia) CAD (coronary artery disease) CKD (chronic kidney disease) CVA (cerebral vascular accident) Diabetes mellitus Dizziness Essential (primary) hypertension History of DVT (deep vein thrombosis) History of non-ST elevation myocardial infarction (NSTEMI) Hyperlipidemia Hypothyroidism Ischemic stroke Left leg pain 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 atrioventricular block NSVT (nonsustained ventricular tachycardia) Obesity Open wound of scalp WILLIAN treated with BiPAP PAD (peripheral artery disease) Palpitations Peripheral neuropathy Presence of cardiac pacemaker Stroke Thrombosis of left common femoral artery Thyroid disorder Home Medications metformin 500 mg tablet 1,000 mg PO QHS DM 03/19/17 [History Last Taken 10/27/22 18:30] nitroglycerin 0.4 mg sublingual tablet 0.4 mg sublingual Q5-15M PRN chest pain #90 tabs 05/25/18 [Rx Last Taken Unknown] aspirin 81 mg chewable tablet 81 mg PO DAILY@0800 HEALTH MAINTENANCE 06/16/22 [History Last Taken 10/27/22 08:00] ezetimibe 10 mg tablet (Zetia) 10 mg PO DAILY DM 06/16/22 [History Last Taken 10/27/22 08:00] insulin human U-100 NPH-regulr 70-30 mix 100 unit/mL subcutaneous susp (Novolin 70/30 U-100 Insulin) 32 unit subcut QHS DM 06/16/22 [History Last Taken 06/15/22] insulin human U-100 NPH-regulr 70-30 mix 100 unit/mL subcutaneous susp (Novolin 70/30 U-100 Insulin) 40 unit subcut DAILY DM 06/16/22 [History Last Taken 06/16/22] levothyroxine 175 mcg tablet 200 mcg PO DAILY THYROID 07/02/22 [History Last Taken 10/27/22 20:55] furosemide 40 mg tablet (Lasix) 40 mg PO BID fluid retention 30 days #60 tabs 10/29/22 [Rx Last Taken Unknown] empagliflozin 25 mg tablet 12.5 mg PO DAILY diabetes 11/24/22 [History Last Taken Unknown] isosorbide mononitrate 60 mg tablet,extended release 24 hr 30 mg PO DAILY HEART 04/01/23 [History Last Taken Unknown] losartan 100 mg tablet 100 mg PO DAILY 04/01/23 [History Last Taken Unknown] metoprolol tartrate 25 mg tablet 12.5 mg PO BID HEART/BLOOD PRESSURE 04/01/23 [History Last Taken Unknown] cholecalciferol (vitamin D3) 25 mcg (1,000 unit) chewable tablet (VitaJoy Daily D) 25 mcg PO DAILY 05/14/23 [History Last Taken Unknown] doxycycline hyclate 100 mg tablet 100 mg PO BID 05/14/23 [History Last Taken Unknown] furosemide 40 mg tablet (Lasix) 40 mg PO BID 05/14/23 [History Last Taken Unknown] magnesium glycinate 325 mg PO BID 05/14/23 [History Last Taken Unknown] rivaroxaban 20 mg tablet (Xarelto) 20 mg PO QHS blood thinner 05/14/23 [History Last Taken Unknown] tamsulosin 0.4 mg capsule 0.4 mg PO QHS prostate 05/14/23 [History Last Taken Unknown] Allergy/AdvReac Type Severity Reaction Status Date / Time atorvastatin [From Lipitor] AdvReac Severe mylagia Verified 05/14/23 17:05 lanolin AdvReac Severe Rash Verified 05/14/23 17:05 Family History Sister CAD (coronary artery disease) Diabetes Brother CAD (coronary artery disease) Father Asthma Mother Cancer lung Surgical History History of coronary artery bypass surgery (~01/21/17) Hx of cardiac catheterization (~01/19/17) S/P coronary artery stent placement (~04/05/18) Social History household members: spouse Smoking Status: Former smoker how long ago did patient quit smokin alcohol intake: never substance use type: does not use caffeine: Yes Type: coffee Number of servings: 3 what type of physical activity do you participate in: none seatbelt use: always do you feel safe at home: Yes ROS ROS Narrative Admission Review of Systems: CONSTITUTIONAL: No weight loss, fever, chills, + weakness or fatigue. HEENT: + Congestion, rhinorrhea. Eyes: No visual loss, blurred vision, double vision or yellow sclerae. Ears, Nose, Throat: No hearing loss, sneezing, congestion, runny nose or sore throat. SKIN: No rash or itching, lesions, wounds except + notable venous stasis skin changes. CARDIOVASCULAR: No chest pain, chest pressure or chest discomfort, palpitations, edema, orthopnea, syncopal events. RESPIRATORY: + Shortness of breath, cough with mildly productive sputum. No wheezing, hemoptysis. GASTROINTESTINAL: + anorexia. No nausea, vomiting or diarrhea, abdominal pain, melena, BRBPR. GENITOURINARY: No dysuria, frequency, urgency or retention. NEUROLOGICAL: No headache, dizziness, syncope, paralysis, ataxia, numbness or tingling in the extremities, focal weakness, change in bowel or bladder control, seizure. MUSCULOSKELETAL: + muscle, back pain, joint pain or stiffness. HEMATOLOGIC: No anemia. + Easy bleeding/bruising. LYMPHATICS: No enlarged nodes. No history of splenectomy. PSYCHIATRIC: No history of depression or anxiety. ENDOCRINOLOGIC: No reports of sweating, cold or heat intolerance. No polyuria or polydipsia. ALLERGIES: No history of asthma, hives, eczema or rhinitis. Vital Signs Vital Signs Vital Signs: 05/14/23 17:06 05/14/23 17:08 05/14/23 18:33 Temperature 96.8 F L 96.8 F L Temperature Source Temporal Temporal Pulse Rate 85 85 Respiratory Rate 18 16 Respiratory Effort Short of Breath Respiratory Pattern Tachypnea Blood Pressure 151/72 H 151/72 H Blood Pressure Mean 98 98 Pulse Ox 93 93 Oxygen Delivery Method Room Air Room Air Oxygen Flow Rate (L/min) 05/14/23 18:35 05/14/23 18:37 05/14/23 20:00 Temperature Temperature Source Pulse Rate 77 Respiratory Rate 16 Respiratory Effort Respiratory Pattern Blood Pressure 140/73 H Blood Pressure Mean 95 Pulse Ox 88 93 94 Oxygen Delivery Method Room Air Nasal Cannula Nasal Cannula Oxygen Flow Rate (L/min) 2 2 Weight Weight: 236 lb 15.951 oz Body Mass Index (BMI) 31.2 Physical Exam Narrative Physical Examination: General: Awake, alert, oriented x 3 and cooperative, seated upright in the ED bed, fatigued, mildly ill-appearing. Skin: Normal color, normal turgor, no icterus, no cyanosis except for occasional staged ecchymoses, significant bilateral lower extremity venous stasis skin changes. HEENT: AT/NC, EOMI, PERRLA, mildly dry MM, no carotid bruits or JVD noted; however thickened neck and smith make evaluation difficult. Lungs: Diminished, greater bases, moderate effort, no evidence of any distress no rales, ronchi or wheezing. Heart: Regular rate and rhythm/paced; no gallop, rub audible. Abdomen: Soft, obese, NTTP, ND, mildly hyperactive BS, no appreciated HSM. Extremities: No cyanosis, no clubbing, bilateral lower extremity chronic edema with bilateral lower extremity venous stasis skin changes. Neurological: Patient awake, alert, oriented as noted, cognitive function intact; pupils equally reactive to light and accommodation, cranial nerves II- XII grossly normal, moving all 4 extremities, no focal deficits, strength moderately to severely global decrease secondary to acute presentation. Psychiatric: Affect appears flat, fatigued, no acute evidence of depressive or anxiety feelings. Results Lab / Micro Data 05/14/23 18:05 05/14/23 18:05 Labs: Laboratory Results - last 24 hr 05/14/23 18:05: WBC 12.0 H, RBC 5.30, Hgb 15.1, Hct 47.9, MCV 90.4, MCH 28.5, MCHC 31.5 L, RDW Std Deviation 51.1 H, RDW Coeff of [place] 15.6 H, Plt Count 181, MPV 11.6, Immature Gran % (Auto) 0.600, Neut % (Auto) 82.4 H, Lymph % (Auto) 9.9 L, [place] % (Auto) 5.8, Eos % (Auto) 0.7, Baso % (Auto) 0.6, Absolute Neuts (auto) 9.9 H, Absolute Lymphs (auto) 1.19, Nucleated RBC % 0, Sodium 140, Potassium 4.1, Chloride 108 H, Carbon Dioxide 30.0, Anion Gap 2 L, BUN 36 H, Creatinine 1.68 H, Estim Creat Clear Calc 51.12, Est GFR (MDRD) Af Amer 52 L, Est GFR (MDRD) Non-Af 43 L, BUN/Creatinine Ratio 21.4 H, Glucose 102, Calcium 9.3, Troponin I High Sens 132 H* 05/14/23 20:05: Troponin I High Sens 144 H* Micro: Microbiology 05/14/23 18:18 Mucosa - Nose SARS-CoV-2, Influenza & RSV (PCR) - Final Imaging Radiology Impression Chest X-Ray 05/14/23 18:22 IMPRESSION: Mild chronic bibasilar interstitial thickening. No gross infiltration or pulmonary edema. Electronically Signed: Ellis Barriga MD at 18:48 EST , Assessment & Plan Assessment/Plan (1) Viral syndrome: PLAN: Plan The patient is a 72 y/o M w/ PMHx: HFpEF, CKD stage III unclear subtype, WILLIAN on BIPAP q HS, Former tobacco use, CKD stage III unclear subtype, Obesity, CAD s/p CABG and PCI, HTN, HLD, Diabetes mellitus type II, Hx LLE DVT with thrombectomy, Hx CVA, BPH, Hypothyroidism, PAF/Flutter who presents to the [facility] ED on 05/14/23 with history of onset of flulike symptoms the week prior with urgent care evaluation with chest x-ray and influenza swab with no evidence of any pneumonia and negative influenza assessment however was started on doxycycline which she started with some improvement of his nasal congestion but still has an ongoing productive cough with ongoing fatigue, malaise and shortness of breath worse with exertion with no specific increased lower extremity swelling orthopnea with underlying history of heart failure however he does report he is been out of his Lasix for 2 days and given ongoing symptoms prompted ED evaluation. #1. Adult Failure to Thrive secondary to Suspected recent Acute viral syndrome with associated Acute Hypoxia with associated elevated troponin possibly demand but unclear significance, questionable concurrent bronchitis versus PNA (administered oral doxycycline outpatient): EKG in ED w/ paced rhythm with no acute evidence of ischemia, CXR w/ no acute cardiopulmonary findings at this time. Trop elevated, 132 with repeat delta 144. Will admit to PCU, maintain on a monitored bed, continue serial cardiac enzymes and EKGs. Obtain magnesium level upon admission. Patient is chronically anticoagulant on Xarelto thus we will continue at this time pending cardiac enzyme trending however if needed could certainly transition to heparin drip at next dose due. Continue medical management. ECHO requested. Cardiology consulted. Will maintain oxygen with wean as tolerated to room air, will maintain on ATC budesonide, as needed albuterol, requested sputum culture, full respiratory viral panel and urine antigens as well as procalcitonin, will maintain on IV rocephin and IV azithromycin until further assessment for superimposed bacterial infection given recent abx therapies, repeat CXR in am following judicious overnight IVFs. #2. PAF/Flutter: We will continue patient home metoprolol and Xarelto at home regimen, repeat echocardiogram given elevated troponins requested as noted above. #3. CAD: Status post PCI and CABG, will continue home aspirin, Xarelto, losartan, continue metoprolol, losartan, Zetia regimen, not on statin therapy. #4. Chronic Kidney Disease Stage III, unclear subtype: Admission BUN/Cr 36/1.68, baseline renal function primarily 1.4-1.6, similar to previous, will continue to trend. #5. Diabetes mellitus type II: Hold oral home regimen, continue home insulin regimen, ADA diet, accu checks w/ ISS. #6. Hypothyroidism: We will continue patient on levothyroxine regimem. #7. History of CVA: Will continue aspirin, Xarelto, hypertensive regimen, diabetic regimen with alterations as noted, not on statin therapy, continue Zeti a. #8. BPH: We will continue patient on Flomax regimen. #9. History thrombosis left common femoral artery: We will continue patient home Xarelto regimen. #10. Hypertension: Continue home regimen including losartan, isosorbide, metoprolol, Lasix, PRN hydralazine. #11. Hyperlipidemia: We will continue patient home Zetia regimen. Not on statin therapy. FLP in AM. #12. Obesity: Weight loss and lifestyle changes encouraged. #13. Former tobacco use: Encourage continued tobacco cessation. #14. HFpEF: Will continue patient on aspirin, Xarelto, metoprolol, losartan, Lasix home regimen, will judiciously hydrate only if necessary. Repeat echocardiogram requested as noted. #15. WILLIAN: BiPAP nightly. #16. DVT prophylaxis: We will continue patient home Xarelto regimen. #17. CODE status: Patient does not have healthcare power of document review attorney or living will in place but notes that his would be his primary decision-maker. Full Code. Charges/Coding Visit Charges Inpatient E&M: 80756 Init Hosp L3
--- OUTSIDE RECORDS SUMMARY | 2023-05-14 22:21 | XMS RPT_ITS | CCD ---
Author Name Unknown Address [id number] [place] [address] Organization [facility] Care Team Providers Care Jewelry Sales Associate Name Role Phone [facility] EM Unavailable Unavailable [...] Translations: [ATORVASTATIN CALCIUM] Drug Allergy 09-07-2017 Myalgia [facility] Work Phone: (3 sources) Lanolin; Translations: [LANOLIN] Drug Allergy 02-15-2008 Itching [facility] Work Phone: (3 sources) rosuvastatin; Translations: [ROSUVASTATIN CALCIUM] Drug Allergy 09-07-2017 Myalgia [facility] Work Phone: Medications Current Medications Medication Drug [...] 13:56-0500 Body temperature 97 [degF] Sarita Phipps DIVE MASTER.[employer] Work Phone: [facility] 05-06-2023 13:56-0500 Body weight 107.41 kg Sarita Phipps DIVE MASTER.[employer] DE[employer] Work Phone: [facility] 05-06-2023 13:56-0500 Diastolic blood pressure 52 mm[Hg] Sarita Phipps DIVE MASTER.[employer] DELE[employer]ATE Work Phone: [facility] 05-06-2023 13:56-0500 Heart rate 54 /min Sarita Phipps DIVE MASTER.[employer] DELE[employer]ATE Work Phone: [facility] 05-06-2023 13:56-0500 Respiratory rate 18 /min Sarita Phipps DIVE MASTER.[employer] DELE[employer]ATE Work Phone: [facility] 05-06-2023 13:56-0500 SaO2% (BldA) [Mass fraction] 96 % Sarita Phipps DIVE MASTER.[employer] DELE[employer]ATE Work Phone: [facility] 05-06-2023 13:56-0500 Systolic blood pressure 100 mm[Hg] Sarita Phipps DIVE MASTER.[employer] Work Phone: [facility] 04-23-2023 07:29-0500 Body temperature 97.59 [degF] Lizeth Hernandez DIVE MASTER.[employer] Work Phone: [facility] 04-23-2023 07:29-0500 Body weight 111.13 kg Lizeth Hernandez DIVE MASTER.[employer] Work Phone: [facility] 04-23-2023 07:29-0500 Diastolic blood pressure 72 mm[Hg] Lizeth Hernandez DIVE MASTER.[employer] Work Phone: [facility] 04-23-2023 07:29-0500 Heart rate 111 /min Lizeth Hernandez DIVE MASTER.[employer] Work Phone: [facility] 04-23-2023 07:29-0500 Respiratory rate 16 /min Lizeth Hernandez APRN.CNP Work Phone: [facility] 04-23-2023 07:29-0500 SaO2% (BldA) [Mass fraction] 96 % Lizeth Hernandez APRN.CNP Work Phone: [facility] 04-23-2023 07:29-0500 Systolic blood pressure 122 mm[Hg] Lizeth Hernandez APRN.[employer] Work Phone: [facility] Encounters Encounter Date Encounter Type Care Provider Facility Start: 05-06-2023 End: 05-06-2023 ambulatory SARITA PHIPPS Facility:[facility] Start: 05-06-2023 End: 05-06-2023 Patient encounter procedure Sarita Phipps APRN.CNP Work Phone: [facility] Procedures Date Procedure Procedure Detail Performing Clinician Start: 05-06-2023 INFLUENZA A&B MOLECU LAR (POC) Sarita Phipps APRN.[employer] Work Phone: Start: 02-25-2017 History of coronary artery bypass grafting S/P CABG x 3 Lizeth Hernandez APRN.CNP Work Phone: Plan of Treatment Date Care Activity Detail Author Start: 07-04-2027 Urine microalbumin profile DTa P,Tdap,Td Vaccine (3 - Td or Tdap) [facility] Start: 05-06-2024 BP Controlled (<130/80) BP Controlle d (<130/80) [facility] Start: 04-23-2024 BP Controlled (<130/80) BP Controlle d (<130/80) [facility] Start: 03-22-2023 Advance Directive Discussion Advance Directive Discussion [facility] Start: 03-22-2023 Depression Assessment Depression Ass essment [facility] Start: 06-01-2019 Annual PCP Team Senior Qc Technician lee Disease Visit Annual PCP Team Chronic Disease Visit [facility] Start: 06-01-2019 Diabetic foot examination Diabetic F oot Exam [facility] Start: 05-22-2019 Hepatitis B screening Urine Al bumin:Creatinine Ratio [facility] Start: 05-22-2019 Hepatitis B surface antibody level LDL Cholesterol [facility] Start: 03-01-2019 Screening for malign ant neoplasm of colon [facility] Start: 11-21-2018 Hemoglobin A1c measurement HbA1C [facility] Start: 08-31-2018 Glaucoma screening Dilated Retinal E xam [facility] Start: 2010 RSV Vaccine (1 - 1-d ose 60+ series) RSV Vaccine (1 - 1-dose 60+ series) [facility] Start: 2000 Shingrix Vaccine (1 of 2) Brink grix Vaccine (1 of 2) [facility] Start: 08-30-1995 Screening for malign ant neoplasm of colon [facility] Start: 02-28-1951 Covid-19 Vaccine (#1) Covid-19 Vacci ne (#1) [facility] Start: 1950 Abdominal aortic ane urysm screening Abdominal Aortic Aneurysm Screening [facility] Immunizations Immunization Date Immunization Notes Care Provider Fa ariela 05-31-2018 pneumococcal polysaccharide vaccine, 23 valent Lizeth Hernandez APRN.[facility] Work Phone: [facility] 07-03-2017 tetanus toxoid, redu anabel diphtheria toxoid, and acellular pertussis vaccine, adsorbed Lizeth Hernandez APRN.[facility] Work Phone: [facility] 06-20-2014 pneumococcal conjuga te vaccine, 13 valent Lizeth Hernandez APRN.[facility] Work Phone: [facility] Work Phone: 04-26-2013 pneumococcal polysaccharide vaccine, 23 valent Lizeth Hernandez APRN.[facility] Work Phone: [facility] Work Phone: 02-15-2008 hepatitis B vaccine, adult dosage Lizeth Hernandez APRN.[employer] Work Phone: [facility] Work Phone: 12-14-2007 hepatitis A vaccine, unspecified formulation Lizeth Hernandez APRN.[employer] Work Phone: [facility] Work Phone: 12-14-2007 hepatitis B vaccine, adult dosage Lizeth Hernandez APRN.[facility] Work Phone: [facility] Work Phone: 05-24-2007 hepatitis A vaccine, unspecified formulation Lzieth Hernandez APRN.[facility] Work Phone: [facility] Work Phone: 05-24-2007 hepatitis B vaccine, adult dosage Lizeth Hernandez APRN.[employer] Work Phone: [facility] Work Phone: 12-15-2006 pneumococcal polysaccharide vaccine, 23 valent Lizeth Hernandez APRN.[employer] Work Phone: [facility] Work Phone: 12-15-2006 tetanus toxoid, redu anabel diphtheria toxoid, and acellular pertussis vaccine, adsorbed Lizeth Hernandez APRN.[facility] Work Phone: [facility] Work Phone: 01-22-2006 influenza virus vacc ine, unspecified formulation Lizeth Hernandez APRN.[facility] Work Phone: [facility] Work Phone: Payers Date Payer Category Payer Unknown [employer] PPO OOS [id number] 2023-Present [phone] [address] [place] [address] PPO [id number] 2023 Unknown [id number] 2018 Unknown [id number] 1950 Unknown [id number] 1950 Unknown [id number] Worker's Compensation Social History Date Type Detail Facility Start: [facility]2023 [facility] History of tobacco use Current smoker [facility] Start: 04-23-2023 Tobacco use and exposure Formjuan r smokeless tobacco user [facility] History of tobacco use Snuff User [facility] History of tobacco use Chews Tobacco [facility] Start: 04-23-2023 End: 05-06-2023 Alcohol intake Current non-drinker of alcohol (finding) [facility] Start: 02-27-2020 End: 04-23-2023 History of Social function [facility] Start: 02-27-2020 End: 04-23-2023 Tobacco use panel [facility] Adult Depression Scr eening Assessment 0 [facility] Start: 1950 Sex Assigned At Not on file [facility] Medical Equipment Procedure Code Equipment Code Equipment Origin al Text Equipment Identifier Dates Start: 08-03-2018 Progress note 05-06-2023 Note Date & Type Note Facility 05-06-2023 Note HNO ID: [id number] Author: ANAMIKA JIMENEZ RT(R) Service: ? Author Type: Plant Technical Specialist Type: Progress Notes Filed: 05/06/2023 14:33 Note [...] PATIENT PRESENTS WITH AN IMPLANTABLE OR ATTACHED MUSHROOM PICKER: No RADIOLOGY DEPARTMENT: General X-ray: Exam(s) Completed: Chest X-Ray PERIPHERAL IV DATA: Not applicable SIGNED BY: RT Ashley(R) May 06, 2023 2:33 PM [facility] Progress note 05-06-2023 Note Date & Type Note Facility 05-06-2023 Note HNO ID: [id number] Author: SARITA PHIPPS APRN.ROCIO Service: ? Author Type: Nurse Practitioner Type: Progress Notes Filed: 05/06/2023 16:34 Note Text: This note was created using NoteWriter. Subjective Micky Roldan is a 72 year old male. 72 year old male with PMH of DM, CKD, CHF, KS, CABG, and former smoker presents today with [...] ear infections in the past. History of KS (myocardial infarction) 02/25/201701/2017 Idiopathic peripheral neuropathy Ischemic cerebrovascular accident (CVA) ([facility]) 08/02/201707/2017: left temporal Mixed hyperlipidemia 02/20/2015 Multiple lung nodules 09/30/[address] 09/2016, repeat CT 03/2017 Other psoriasis 09/26/2007 PRURITIC DISORDER NOS 09/26/2007 PVC (premature ventricular contraction) PYODERMA NOS 09/26/2007 Right-sided cerebrovascular accident (CVA) ([facility]) 02/09/2017 MRI at [place] 01/2017 showed right cortical stroke. S/P CABG x 3 02/25/2017 01/22/2017 Following [facility]. SEBORRHEIC DERMATITIS NOS 09/26/2007 SEBORRHEIC KERATOSIS NOS 12/16/2007 Shoulder pain 05/05/2013 SOLAR LENGINES////DYSCHROMIA OTHER 12/16/2007 Uncontrolled type 2 diabetes mellitus with diabetic neuropathy, with long-term current use of insulin 06/04/2017 PAST SURGICAL HISTORY Procedure Laterality Date 2D ECHO (EXEP) 01/2017 EF=50-55%, with nl function 2D ECHO (EXEP) 08/02/2017 EF=53%, mild infante dysf, mild KS and TI PAST SURGICAL HISTORY OF 01/22/2017 [...] Problem Relation A (more content not included)... [facility] History of Present illness Narrative 05-06-2023 Sarita Phipps APRN.[employer] DELEGATE - 05/06/2023 2:15 PM EST Note Date & Type Note Facility 05-06-2023 History of Presen t illness Narrative This note was created using Transgenomicriter. Subjective Micky Roldan is a 72 year old male. 72 year old male with PMH of DM, CKD, CHF, KS, CABG, and former smoker presents today with [...] ear infections in the past. History of KS (myocardial infarction) 02/25/201701/2017 Idiopathic peripheral neuropathy Ischemic cerebrovascular accident (CVA) ([facility]) 08/02/201707/2017: left temporal Mixed hyperlipidemia 02/20/2015 Multiple lung nodules 09/30/[address] 09/2016, repeat CT 03/2017 Other psoriasis 09/26/2007 PRURITIC DISORDER NOS 09/26/2007 PVC (premature ventricular contraction) PYODERMA NOS 09/26/2007 Right-sided cerebrovascular accident (CVA) ([facility]) 02/09/2017 MRI at [place] 01/2017 showed right cortical stroke. S/P CABG x 3 02/25/2017 01/22/2017 Following [facility]. SEBORRHEIC DERMATITIS NOS 09/26/2007 SEBORRHEIC KERATOSIS NOS 12/16/2007 Shoulder pain 05/05/2013 SOLAR LENGINES////DYSCHROMIA OTHER 12/16/2007 Uncontrolled type 2 diabetes mellitus with diabetic neuropathy, with long-term current use of insulin 06/04/2017 PAST SURGICAL HISTORY Procedure Laterality Date 2D ECHO (EXEP) 01/2017 EF=50-55%, with nl function 2D ECHO (EXEP) 08/02/2017 EF=53%, mild infante dysf, mild KS and TI PAST SURGICAL HISTORY OF 01/22/2017 [...] tenderness or frontal sinus tenderness. Mouth/Throat: Lips: Mendes. No lesions. Mouth: Mucous membranes are moist. [...] do not improve Shira Torres TEACHING PROVIDER (Physician/PA/DIVE MASTER) NOTE OF PERSONAL INVOLVEMENT IN CARE: I have personally seen and examined the patient and performed the medical decision-making components. I have reviewed the Advanced Practice Registered Nurse (DIVE MASTER) Student's documentation and verified the findings in the note as written. Any additions or changes are noted in bold/italics. Signature: Sarita Phipps Date: 05/06/2023 Time: 4:34 PM documented in this encounter [facility] Progress note 04-23-2023 Note Date & Type Note Facility 04-23-2023 Note HNO ID: [id number] Author: LIZETH HERNANDEZ APRN.[employer]LE[employer] Service: ? Author Type: Nurse Practitioner Type: [...] Patient was okay with this care plan. [facility] History of Present illness Narrative 04-23-2023 Lizeth Hernandez APRN.[employer]LE[employer]ATE - 04/23/2023 7:37 AM EST Note Date [...] this care plan. documented in this encounter [facility] History of Past illness Narrative 09-02-2015 Note Date & Type Note Facility documented as of this encounter (statuses as of 04/23/2023) [facility] History of Past illness Narrative 09-02-2015 Note Date & Type Note Facility documented as of this encounter (statuses as of 05/06/2023) [facility] Evaluation note Note Date & Type Note Facility documented in this encounter [facility] Evaluation note Note Date & Type Note Facility documented in this encounter [facility] Summary Purpose Family History No Family History [...] DATE CREATED AUTHOR AUTHOR'S ORGANIZ ATION 11/01/2017 [facility] DATE CREATED AUTHOR AUTHOR'S ORGANIZ ATION 04/20/2018 [facility] ([place] DATE CREATED AUTHOR AUTHOR'S ORGANIZ ATION 05/08/2023 [facility] Source Comments (unrecognize d section and content) In the event this informatio n is protected by the Federal Confidentiality of Alcohol and Drug Abuse Patient Records regulations: The Federal rules restrict any use of the information to criminally investigate or prosecute any alcohol or drug abuse patient.[facility] the event this information is protected by the Federal Confidentiality of Alcohol and Drug Abuse Patient Records regulations: The Federal rules restrict any use of the information to criminally investigate or prosecute any alcohol or drug abuse patient.[facility] Reason for Visit (unrecogniz ed section and [...] BE BASED ON THE PRIMARY CLINICAL RECORDS. [facility]. provides no warranty or guarantee of the accuracy or completeness of information in this document.
--- NOTE | 2023-05-14 23:09 | ECHOCS_ITS ---
Reason For Study: ELEVATED TROPONINS Procedure This was a 2D Doppler, Color Flow transthoracic echocardiogram. The study was technically difficult. Contrast injection was performed. Exam performed portable in patient room. Left Ventricle Mildly dilated left ventricle. The estimated ejection fraction is 35-40 %. Right Ventricle Normal right ventricle. Normal systolic function. Atria The left atrium is mildly enlarged. Normal right atrium. Mitral Valve The mitral valve is structurally normal. No prolapse or stenosis seen. Mild (1+) mitral valve insufficiency. Tricuspid Valve Normal tricuspid valve. Mild tricuspid valve insufficiency. Aortic Valve Trisinus/trileaflet aortic valve. Pulmonic Valve The pulmonic valve is not well visualized. Great Vessels Normal aortic root. Pericardium/Pleural No pericardial effusion. Medication Diluted definity 2.0ml given slow IV push to enhance endocardial definition. MMode/2D Measurements & Calculations LVIDd: 6.0 cm IVSd: 1.0 cm Ao root diam: 3.5 cm LVIDs: 5.0 cm LVPWd: 1.2 cm RVDd: 3.7 cm FS: 17.1 % LAV(MOD-bp): 99.6 ml LVAd ap4: 42.3 cm2 SV(MOD-sp4): 61.6 ml LAV(MOD-bp) Indexed: 43.5 ml/m2 LVLd ap4: 9.4 cm LAV(MOD-sp2): 100.3 ml EDV(MOD-sp4): 154.3 ml LAV(MOD-sp4): 100.0 ml EDV(sp4-el): 162.6 ml LVAs ap4: 32.0 cm2 LVLs ap4: 8.8 cm ESV(MOD-sp4): 92.7 ml ESV(sp4-el): 98.7 ml EF(MOD-sp4): 39.9 % EF(sp4-el): 39.3 % SV(sp4-el): 63.9 ml LA A4 area: 28.9 cm2 LA dimension(2D): 5.2 cm RA A4 area: 18.9 cm2 TAPSE: 1.4 cm Time Measurements MV dec time: 0.15 sec Doppler Measurements & Calculations MV E max christian: 67.9 cm/sec Lat Peak E' Christian: 9.1 cm/sec Med Peak E' Christian: 3.9 cm/sec MV A max christian: 36.0 cm/sec E/E' lat: 7.5 E/E' med: 17.5 MV E/A: 1.9 MV V2 max: 81.1 cm/sec MV P1/2t max christian: 93.4 cm/sec Ao V2 max: 94.4 cm/sec MV max P.6 mmHg MV P1/2t: 49.1 msec Ao max P.6 mmHg MV V2 mean: 43.2 cm/sec MV dec slope: 557.2 cm/sec2 Ao V2 mean: 64.1 cm/sec MV mean P.86 mmHg MVA(P1/2t): 4.5 cm2 Ao mean P.9 mmHg MV V2 VTI: 15.2 cm Ao V2 VTI: 20.1 cm AV (velocity ratio): 0.73 LV V1 max: 72.6 cm/sec MR max christian: 446.4 cm/sec PA V2 max: 87.7 cm/sec LV V1 max P.1 mmHg MR max P.7 mmHg PA V2 mean: 58.3 cm/sec LV V1 mean P.0 mmHg LV V1 mean: 46.3 cm/sec LV V1 VTI: 14.6 cm TR max christian: 340.8 cm/sec TR max P.4 mmHg ECHO/Echo Complete W/ Contrast Interpretation Summary The estimated ejection fraction is 35-40 %. Reduced LV systolic function in comparison to previous echo 06/18/2022 Mild MR Mild TR Ordering Physician: Isabella Chappell Referring Physician: [facility] Performed By: Elizabeth Narayanan, OPAL, RVT
[2023-05-14] MEDS: 0.9% Normal Saline (1000mL) 1,000 ML 75 ML IV (23:27)
[2023-05-14] MEDS: 0.9% Saline Lock 10 ML Syringe IV (23:28)
[2023-05-14] MEDS: Azithromycin 500 MG in Dextrose 5%-Water (250mL Bag) 250 ML 250 MG IV (23:58)
[2023-05-15] VITALS (13 sets, daily range): BP systolic 103–152; BP diastolic 46–89; PULSE 61–89; RESP 16–20; TEMP 36.1–37.3; O2SAT 88–98; BMI 30.4
[2023-05-15] MEDS: Ceftriaxone 1 GM/50 ML BAG IV ×2 (01:13→22:16)
[2023-05-15] MEDS: Levothyroxine 100 MCG Tablet 200 MCG PO (05:54)
[2023-05-15 06:04] LABS: Absolute Lymphocyte Count 1.32 X10^3/uL (0.83-4.51); Absolute Neutrophil Count 8.2 X10^3/uL (2.0-7.7); Basophil# 0.06 X10^3/uL; Basophil% 0.6 % (0-1); Eosinophil# 0.16 X10^3/uL; Eosinophils% 1.5 % (0-5); Hematocrit 45.7 % (40-54); Hemoglobin 14.6 g/dL (13.0-16.5); Lymphocyte # 1.32 X10^3/ul (0.83-4.51); Lymphocyte % 12.6 % (19-41); Mean Corp Hgb Conc 31.9 g/dL (32-36); Mean Corpuscular Hgb 28.6 pg (27.0-32.0); Mean Corpuscular Volume 89.4 fL (80-94); Mean Platelet Vol. 11.7 fl (6.2-12.0); Monocyte# 0.73 X10^3/uL; NRBC Flagged by Analyzer 0 % (0-5); Neutrophil # 8.15 X10^3/uL (2.7-7.7); Neutrophil % 77.6 % (47-70); Platelet Count 158 K/mm3 (150-450); RBC Distribution Width CV 15.7 % (11.6-14.6); RBC Distribution Width SD 50.8 fl (35.1-43.9); Red Blood Count 5.11 M/mm3 (4.6-6.2); White Blood Count 10.5 K/mm3 (4.4-11.0)
[2023-05-15 06:20] LABS: Bedside Glucose 136 mg/dL (74-106)
--- NOTE | 2023-05-15 06:35 | RAD_ITS ---
STUDY: X-RAY CHEST REASON FOR EXAM: Male, 72 years old. Dyspnea. Cough. TECHNIQUE: Single frontal view of the chest. COMPARISON: 05/14/2023 FINDINGS: Mild diffuse interstitial pattern. Patchy opacity at the left base peripherally which may represent atelectasis or early/developing pneumonia. There is no demonstrated pleural abnormality. Stable cardiomegaly, dual lead cardiac pacer and sternotomy wires. Normal mediastinum and nasrin. Stable prominent central pulmonary arteries. Aortic tortuosity with calcification unchanged. Normal visualized thoracic spine. Normal visualized ribs, clavicles, and shoulders. No abnormality of the visualized soft tissue structures of the upper abdomen. RAD/Chest 1 View (Portable) IMPRESSION: Cardiomegaly with findings compatible with mild interstitial edema/congestive failure. Patchy opacity at the left base peripherally representing atelectasis or early/developing pneumonia. Follow-up chest imaging to resolution recommended. Electronically Signed: Juan Diego Mosley MD at 9:24 EST ,
[2023-05-15 06:52] LABS: Troponin-I HS 95 pg/mL (3.0-78.0)
[2023-05-15 06:54] LABS: ALB/GLOB Ratio 0.6 RATIO (0.9-2.4); AST(SGOT) 18 U/L (15-37); Alanine Aminotransfer ALT/SGPT 18 U/L (16-61); Albumin, Serum 2.8 g/dL (3.2-5.0); Alkaline Phosphatase 64 U/L (45-117); Anion Gap 6 (5-15); BUN 31 mg/dL (7-18); BUN/Creat Ratio 21.4 RATIO (10-20); Calcium,Total 9.4 mg/dL (8.5-10.1); Chloride 112 mmol/L (98-107); Cholesterol 97 mg/dL (200); Creatinine, Serum 1.45 mg/dL (0.70-1.30); EST Glomerular Filtration Rate 51 mL/min (>60); Est Glom Filt Rate - Afr Amer 61 mL/min (>60); Estimated Creatinine Clearance 58.48 ml/min; Globulin 4.5 g/dL (2.2-4.2); Glucose 149 mg/dL (74-106); High Density Lipoprotein 39 mg/dL; Protein, Total 7.3 g/dL (6.4-8.2); Sodium Level 141 mmol/L (136-145); Triglycerides 76 mg/dL; Very Low Density Lipoprotein 15 mg/dL (5-40)
[2023-05-15] MEDS: Budesonide Respules 0.5 MG/2 ML AMPUL.NEB. INHALATION (07:02)
[2023-05-15 07:55] LABS: Procalcitonin < 0.04 ng/mL (0.00-0.09)
--- NOTE | 2023-05-15 09:43 | PN.HOSP_ITS ---
Reason for Visit Reason for Visit: Diagnoses Viral infection, unspecified (05/14/23) Objective Data Objective Data Vital Signs: Vital Signs Temp Pulse Resp BP Pulse Ox O2 Del Method O2 Flow Rate 97 F L 89 20 H 141/79 H 96 Room Air 2 05/15/23 05:52 05/15/23 07:02 05/15/23 07:02 05/15/23 05:52 05/15/23 07:02 05/15/23 07:02 05/14/23 22:00 Oxygen Flow Rate (L/min) 2 Oxygen Delivery Method Room Air Weight: 230 lb 9.656 oz Body Mass Index (BMI) 30.4 Intake & Output: Intake and Output for Last 24 Hours 05/13/23 05/14/23 05/15/23 23:59 23:59 23:59 Intake Total 765 / 765 Output Total 700 / 700 Balance 65 / 65 Lab / Micro Data 05/15/23 05:51 05/15/23 05:51 Labs: Laboratory Results - last 24 hr 05/14/23 18:05: WBC 12.0 H, RBC 5.30, Hgb 15.1, Hct 47.9, MCV 90.4, MCH 28.5, MCHC 31.5 L, RDW Std Deviation 51.1 H, RDW Coeff of [place] 15.6 H, Plt Count 181, MPV 11.6, Immature Gran % (Auto) 0.600, Neut % (Auto) 82.4 H, Lymph % (Auto) 9.9 L, [place] % (Auto) 5.8, Eos % (Auto) 0.7, Baso % (Auto) 0.6, Absolute Neuts (auto) 9.9 H, Absolute Lymphs (auto) 1.19, Nucleated RBC % 0, Sodium 140, Potassium 4.1, Chloride 108 H, Carbon Dioxide 30.0, Anion Gap 2 L, BUN 36 H, Creatinine 1.68 H, Estim Creat Clear Calc 51.12, Est GFR (MDRD) Af Amer 52 L, Est GFR (MDRD) Non-Af 43 L, BUN/Creatinine Ratio 21.4 H, Glucose 102, Calcium 9.3, Troponin I High Sens 132 H* 05/14/23 20:05: Magnesium 2.0, Troponin I High Sens 144 H* 05/15/23 05:49: POC Glucose 136 H 02/24/24 05:51: WBC 10.5, RBC 5.11, Hgb 14.6, Hct 45.7, MCV 89.4, MCH 28.6, MCHC 31.9 L, RDW Std Deviation 50.8 H, RDW Coeff of [place] 15.7 H, Plt Count 158, MPV 11.7, Immature Gran % (Auto) 0.700, Neut % (Auto) 77.6 H, Lymph % (Auto) 12.6 L, [place] % (Auto) 7.0, Eos % (Auto) 1.5, Baso % (Auto) 0.6, Absolute Neuts (auto) 8.2 H, Absolute Lymphs (auto) 1.32, Nucleated RBC % 0, Sodium 141, Potassium 4.0, Chloride 112 H, Carbon Dioxide 23.0, Anion Gap 6, BUN 31 H, Creatinine 1.45 H, Estim Creat Clear Calc 58.48, Est GFR (MDRD) Af Amer 61, Est GFR (MDRD) Non- Af 51 L, BUN/Creatinine Ratio 21.4 H, Glucose 149 H, Calcium 9.4, Total Bilirubin 1.60 H, AST 18, ALT 18, Alkaline Phosphatase 64, Troponin I High Sens 95 H, Total Protein 7.3, Albumin 2.8 L, Globulin 4.5 H, Albumin/Globulin Ratio 0.6 L, Triglycerides 76, Cholesterol 97, LDL Cholesterol 43, VLDL Cholesterol 15, HDL Cholesterol 39 L, Procalcitonin < 0.04 Micro: Microbiology 05/15/23 00:05 Urine, Clean Catch Legionella Antigen - Final 05/15/23 00:05 Urine, Clean Catch Streptococcus pneumoniae Antigen (M - Final 05/14/23 18:18 Mucosa - Nose SARS-CoV-2, Influenza & RSV (PCR) - Final Radiography Diagnostic Testing: Radiology Impression Chest X-Ray 05/14/23 18:22 IMPRESSION: Mild chronic bibasilar interstitial thickening. No gross infiltration or pulmonary edema. Electronically Signed: Ellis Barriga MD at 18:48 EST Reading Location ID and State: [facility] / [place] Tel , Service support , Chest X-Ray 05/15/23 06:35 IMPRESSION: Cardiomegaly with findings compatible with mild interstitial edema/congestive failure. Patchy opacity at the left base peripherally representing atelectasis or early/developing pneumonia. Follow-up chest imaging to resolution recommended. Electronically Signed: Juan Diego Mosley MD at 9:24 EST , Physical Exam Narrative Seen and examined. Patient came with hypoxia and shortness of breath. He states normally he does not have shortness of breath and he works in [employer]. For last 1 week he is feeling shortness of breath getting worse especially on exertion and could not go for work. Denies chest pain or pressure or tightness. Denies history of COPD or chronic lung disease or smoking history. History of CABG and stents Former smoker quit in 1997, smoked cigarettes about a pack per day before. Physical exam General: Alert, Oriented x3, Cooperative HEENT: Atraumatic, PERRLA, EOMI, Normocephalic Oral: Oral mucosa moist. No Gingival or Mucosal Lesions/ Ulcerations Neck: Supple, No JVD, Negative Carotid Bruits Chest wall/Lungs: Air entry diminished in bilateral lung bases. No crepitation/rhonchi. Mild hypoxia but no tachypnea. Cardiovascular: Paced rhythm, Normal S1, Normal S2, No M/G/R. Has pacemaker Abdomen: Bowel Sounds Present, Soft, Non Tender, Non-Distended : No dysuria. No renal angle tenderness. No suprapubic tenderness. Extremities: No significant edema, Capillary Refill Less than 3 Seconds Skin: No rashes, No breakdown Musculoskeletal: Scar on the medial aspect of left leg from clot evacuation in the past. No Tenderness to Palpation of Joints or Extremities Neurological: Cranial nerves II-XII grossly intact, DTR 2+/4. No acute focal neurological deficit. Psych/Mental Status: Normal Affect, Appropriate. Assessment & Plan Assessment/Plan (1) Viral syndrome: PLAN: Plan The patient is a 72 y/o M Was admitted for generalized weakness when he tried to go for work, flulike symptoms, cough with clear sputum, shortness of breath on exertion since last week.He went to urgent care and had chest x-ray influenza swab which were negative chest did not show pneumonia. Patient was started on doxycycline but reported has productive cough. #1. Generalized weakness suspected due to acute viral syndrome, suspected left basilar pneumonia with associated hypoxia: Patient is being admitted in PCU. Chest x-ray shows mild chronic diffuse interstitial pattern with patchy opacity at left base possible atelectasis or early developing pneumonia. Repeat chest x-ray prominent interstitial markings more than previous. RSV, influenza and COVID PCR negative. Urinary antigens are negative. Patient on IV ceftriaxone and azithromycin. 2. Elevated troponin with history of CAD status post PCI and CABG and chronic HFpEF: Patient first troponin 132, repeat 144 and 95 therefore decreasing trends. 2D echo requested. Most likely elevated troponin due to demand ischemia in view of CKD. EKG shows paced rhythm with no acute evidence of ischemia. Patient on metoprolol Xarelto. Clinic Lpn is consulted. 2D echo ordered. previous echo on 06/08/2022 showed EF 55%, no regional wall motion abnormality, L A mildly enlarged. Trivial TR, trivial MR. Patient does not seem to be in acute heart failure 05/15: Clinic Lpn was consulted. Repeat 2D echo shows reduced LV function in the range of 35 to 40%. Recommended outpatient Lexiscan to evaluate for myocardial ischemia 3. PAF/Flutter status post pacemaker for sick sinus syndrome: We will continue patient home metoprolol, losartan and Zetia; not on statin due to myalgia/allergy and Xarelto at home regimen, alarm security or surveillance monitor shows paced rhythm. #4. Chronic Kidney Disease Stage III, type a: Admission BUN/Cr 36/1.68, baseline renal function primarily 1.4-1.6, similar to previous, will continue to trend. #5. Diabetes mellitus type II: Hold oral home regimen, continue home insulin regimen, ADA diet, accu checks w/ ISS. #6. Hypothyroidism: continue patient on levothyroxine regimem. #7. History of CVA: Will continue aspirin, Xarelto, hypertensive regimen, diabetic regimen with alterations as noted, not on statin therapy, continue Ze tia. #8. BPH: We will continue patient on Flomax regimen. #9. History thrombosis left common femoral artery: continue patient home Xarelto regimen. #10. Hypertension: Continue home regimen including losartan, isosorbide, metoprolol, Lasix, PRN hydralazine. #11. Hyperlipidemia: We will continue patient home Zetia regimen. Not on statin therapy. FLP in AM. #12. Obesity: Weight loss and lifestyle changes encouraged. #13. Former tobacco use: Encourage continued tobacco cessation. #14. HFpEF: Will continue patient on aspirin, Xarelto, metoprolol, losartan, Lasix home regimen, will judiciously hydrate only if necessary. Repeat echocardiogram requested as noted. #15. WILLIAN: BiPAP nightly. #16. DVT prophylaxis: We will continue patient home Xarelto regimen. #17. CODE status: Patient does not have healthcare power of erisa attorney or living will in place but notes that his would be his primary decision-maker. Full Code. Charges/Coding Visit Charges Inpatient E&M: 62807 Subs Hosp L2
[2023-05-15] MEDS: Aspirin 81 MG TAB.CHEW PO (10:12)
[2023-05-15] MEDS: Losartan Potassium 100 MG Tablet PO (10:12)
[2023-05-15] MEDS: Isosorbide Mononitrate 30 MG Tablet PO (10:13)
[2023-05-15] MEDS: Ezetimibe 10 MG Tablet PO (10:13)
[2023-05-15] MEDS: Furosemide 40 MG Tablet PO ×2 (10:13→17:24)
[2023-05-15] MEDS: Metoprolol Tartrate 25 MG Tablet 12.5 MG PO ×2 (10:13→22:16)
[2023-05-15] MEDS: Insulin Human 75/25 Kwickpen 40 UNIT SC (11:33)
[2023-05-15 11:58] LABS: Bedside Glucose 181 mg/dL (74-106)
[2023-05-15] MEDS: Acetaminophen 325 MG Tablet 650 MG PO (13:08)
--- NOTE | 2023-05-15 16:02 | PCM.CONS.C ---
Assessment & Plan Assessment/Plan (1) Viral syndrome: (2) Elevated troponin level: (3) Chronic anticoagulation: (4) Presence of cardiac pacemaker: (5) Paroxysmal atrial flutter: (6) CKD (chronic kidney disease): (7) Atrial flutter: (8) PAD (peripheral artery disease): (9) CAD (coronary artery disease): (10) Stroke: (11) S/P coronary artery stent placement: (12) History of non-ST elevation myocardial infarction (NSTEMI): (13) Diabetes mellitus: QUALIFIERS: Qualified Code(s): E11.9 - Type 2 diabetes mellitus without complications; E11.9 - Type 2 diabetes mellitus without complications; E11.9 - Type 2 diabetes mellitus without complications (14) Hyperlipidemia: QUALIFIERS: Hyperlipidemia type: unspecified Qualified Code(s): E78.5 - Hyperlipidemia, unspecified PLAN: Plan 72-year-old patient with multiple medical problems From cardiac standpoint he had a history of CAD with CABG 2017 done at [place] and had a PCI and stent subsequently 2 years later At the same hospital. This admission patient presenting with symptoms of cough shortness of breath does not have any active chest pain. He is known to have history of CKD stage III, diabetes mellitus, WILLIAN, hypertension history of former tobacco user. Cardiac consultation is requested as he has a mild elevation of high sensitive troponins And patient does not have any active chest pain. The chest x-ray showed mild chronic bibasilar interstitial full-thickness Patient has viral syndrome From cardiac standpoint had a history of PA AF/flutter and has been on anticoagulation with Xarelto as well as on rate control using metoprolol And underlying cardiac rhythm showed paced electronic ventricular rhythm. Further evaluation by echocardiogram showed reduced LV function ejection fraction in the range of around 35-40%. Patient has a history of paroxysmal A-fib/atrial flutter and was on anticoagulation. History of a pacemaker/permanent pacemaker for underlying sick sinus syndrome. Type II NM with demand myocardial ischemia in the setting of CKD Patient does not have any active chest pain EKG is not informative as it is a paced electronic ventricular rhythm. I recommended to evaluate further once stable clinically with the Lexiscan sestamibi to assess for myocardial ischemia In view of the reduced LV systolic function in comparison to previous echocardiogram Will continue to monitor and follow-up clinically. Jaylan Perry MD,FACC,[facility] HPI Consult Data Date of Consult: 05/15/23 HPI Narrative Reason for Consultation: Known CAD/CABG/PCI stent/presenting with shortness of breath HPI Narrative: JUAN DIEGO ABDI, is a 72 M who presents [facility] Medical History (HFpEF) heart failure with preserved ejection fraction Aftercare following surgery of the circulatory system Atherosclerosis of [place] coronary artery of [place] heart without angina pectoris Atrial flutter Atrial flutter by electrocardiogram BPH (benign prostatic hyperplasia) CAD (coronary artery disease) CKD (chronic kidney disease) CVA (cerebral vascular accident) Diabetes mellitus Dizziness Essential (primary) hypertension History of DVT (deep vein thrombosis) History of non-ST elevation myocardial infarction (NSTEMI) Hyperlipidemia Hypothyroidism Ischemic stroke Left leg pain 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 atrioventricular block NSVT (nonsustained ventricular tachycardia) Obesity Open wound of scalp WILLIAN treated with BiPAP PAD (peripheral artery disease) Palpitations Peripheral neuropathy Presence of cardiac pacemaker Stroke Thrombosis of left common femoral artery Thyroid disorder Home Medications metformin 500 mg tablet 1,000 mg PO QHS DM 03/19/17 [History Last Taken 10/27/22 18:30] nitroglycerin 0.4 mg sublingual tablet 0.4 mg sublingual Q5-15M PRN chest pain #90 tabs 05/25/18 [Rx Last Taken Unknown] aspirin 81 mg chewable tablet 81 mg PO DAILY@0800 HEALTH MAINTENANCE 06/16/22 [History Last Taken 10/27/22 08:00] ezetimibe 10 mg tablet (Zetia) 10 mg PO DAILY DM 06/16/22 [History Last Taken 10/27/22 08:00] insulin human U-100 NPH-regulr 70-30 mix 100 unit/mL subcutaneous susp (Novolin 70/30 U-100 Insulin) 32 unit subcut QHS DM 06/16/22 [History Last Taken 06/15/22] insulin human U-100 NPH-regulr 70-30 mix 100 unit/mL subcutaneous susp (Novolin 70/30 U-100 Insulin) 40 unit subcut DAILY DM 06/16/22 [History Last Taken 06/16/22] levothyroxine 175 mcg tablet 200 mcg PO DAILY THYROID 07/02/22 [History Last Taken 10/27/22 20:55] furosemide 40 mg tablet (Lasix) 40 mg PO BID fluid retention 30 days #60 tabs 10/29/22 [Rx Last Taken Unknown] empagliflozin 25 mg tablet 12.5 mg PO DAILY diabetes 11/24/22 [History Last Taken Unknown] isosorbide mononitrate 60 mg tablet,extended release 24 hr 30 mg PO DAILY HEART 04/01/23 [History Last Taken Unknown] losartan 100 mg tablet 100 mg PO DAILY 04/01/23 [History Last Taken Unknown] metoprolol tartrate 25 mg tablet 12.5 mg PO BID HEART/BLOOD PRESSURE 04/01/23 [History Last Taken Unknown] cholecalciferol (vitamin D3) 25 mcg (1,000 unit) chewable tablet (VitaJoy Daily D) 25 mcg PO DAILY 05/14/23 [History Last Taken Unknown] doxycycline hyclate 100 mg tablet 100 mg PO BID 05/14/23 [History Last Taken Unknown] furosemide 40 mg tablet (Lasix) 40 mg PO BID 05/14/23 [History Last Taken Unknown] magnesium glycinate 325 mg PO BID 05/14/23 [History Last Taken Unknown] rivaroxaban 20 mg tablet (Xarelto) 20 mg PO QHS blood thinner 05/14/23 [History Last Taken Unknown] tamsulosin 0.4 mg capsule 0.4 mg PO QHS prostate 05/14/23 [History Last Taken Unknown] Allergy/AdvReac Type Severity Reaction Status Date / Time atorvastatin [From Lipitor] AdvReac Severe mylagia Verified 05/14/23 17:05 lanolin AdvReac Severe Rash Verified 05/14/23 17:05 Family History Sister CAD (coronary artery disease) Diabetes Brother CAD (coronary artery disease) Father Asthma Mother Cancer lung Surgical History History of coronary artery bypass surgery (~01/21/17) Hx of cardiac catheterization (~01/19/17) S/P coronary artery stent placement (~04/05/18) Social History household members: spouse Smoking Status: Former smoker how long ago did patient quit smokin alcohol intake: never substance use type: does not use caffeine: Yes Type: coffee Number of servings: 3 what type of physical activity do you participate in: none seatbelt use: always do you feel safe at home: Yes Physical Exam Cardio Cardio Narrative: Patient seen and examined at bedside today His underlying cardiac rhythm is paced electronic ventricular rhythm His cardiac exam S1-S2 is regular Chest examination showed diminished air entry well noted on both sides. Risk Stratification Risk Stratification Applicable: No Objective Data Vital Signs: Vital Signs Temp Pulse Resp BP Pulse Ox O2 Del Method O2 Flow Rate 99.2 F H 78 18 152/89 H 94 Nasal Cannula 2 05/15/23 09:52 05/15/23 10:13 05/15/23 09:52 05/15/23 10:13 05/15/23 09:52 05/15/23 09:52 05/15/23 09:52 Oxygen Flow Rate (L/min) 2 Oxygen Delivery Method Nasal Cannula Weight: 230 lb 9.656 oz Body Mass Index (BMI) 30.4 Intake & Output: Intake and Output for Last 24 Hours 05/13/23 05/14/23 05/15/23 23:59 23:59 23:59 Intake Total 1537.5 / 1537.5 Output Total 700 / 700 Balance 837.5 / 837.5 Lab / Micro Data 05/15/23 05:51 05/15/23 05:51 Labs: Laboratory Results - last 24 hr 05/14/23 18:05: WBC 12.0 H, RBC 5.30, Hgb 15.1, Hct 47.9, MCV 90.4, MCH 28.5, MCHC 31.5 L, RDW Std Deviation 51.1 H, RDW Coeff of [place] 15.6 H, Plt Count 181, MPV 11.6, Immature Gran % (Auto) 0.600, Neut % (Auto) 82.4 H, Lymph % (Auto) 9.9 L, [place] % (Auto) 5.8, Eos % (Auto) 0.7, Baso % (Auto) 0.6, Absolute Neuts (auto) 9.9 H, Absolute Lymphs (auto) 1.19, Nucleated RBC % 0, Sodium 140, Potassium 4.1, Chloride 108 H, Carbon Dioxide 30.0, Anion Gap 2 L, BUN 36 H, Creatinine 1.68 H, Estim Creat Clear Calc 51.12, Est GFR (MDRD) Af Amer 52 L, Est GFR (MDRD) Non-Af 43 L, BUN/Creatinine Ratio 21.4 H, Glucose 102, Calcium 9.3, Troponin I High Sens 132 H* 05/14/23 20:05: Magnesium 2.0, Troponin I High Sens 144 H* 05/15/23 05:49: POC Glucose 136 H 05/15/23 05:51: WBC 10.5, RBC 5.11, Hgb 14.6, Hct 45.7, MCV 89.4, MCH 28.6, MCHC 31.9 L, RDW Std Deviation 50.8 H, RDW Coeff of [place] 15.7 H, Plt Count 158, MPV 11.7, Immature Gran % (Auto) 0.700, Neut % (Auto) 77.6 H, Lymph % (Auto) 12.6 L, [place] % (Auto) 7.0, Eos % (Auto) 1.5, Baso % (Auto) 0.6, Absolute Neuts (auto) 8.2 H, Absolute Lymphs (auto) 1.32, Nucleated RBC % 0, Sodium 141, Potassium 4.0, Chloride 112 H, Carbon Dioxide 23.0, Anion Gap 6, BUN 31 H, Creatinine 1.45 H, Estim Creat Clear Calc 58.48, Est GFR (MDRD) Af Amer 61, Est GFR (MDRD) Non-Af 51 L, BUN/Creatinine Ratio 21.4 H, Glucose 149 H, Calcium 9.4, Total Bilirubin 1.60 H, AST 18, ALT 18, Alkaline Phosphatase 64, Troponin I High Sens 95 H, Total Protein 7.3, Albumin 2.8 L, Globulin 4.5 H, Albumin/Globulin Ratio 0.6 L, Triglycerides 76, Cholesterol 97, LDL Cholesterol 43, VLDL Cholesterol 15, HDL Cholesterol 39 L, Procalcitonin < 0.04 05/15/23 11:31: POC Glucose 181 H Micro: Microbiology 05/15/23 07:50 Mucosa - Nose Respiratory Panel (PCR) - Final 05/15/23 00:05 Urine, Clean Catch Legionella Antigen - Final 05/15/23 00:05 Urine, Clean Catch Streptococcus pneumoniae Antigen (M - Final 05/14/23 18:18 Mucosa - Nose SARS-CoV-2, Influenza & RSV (PCR) - Final Cardiology Labs/Tests 05/14/23 18:05: WBC 12.0 H, RBC 5.30, Hgb 15.1, Hct 47.9, MCV 90.4, MCH 28.5, MCHC 31.5 L, Plt Count 181, MPV 11.6, Immature Gran % (Auto) 0.600, Neut % (Auto) 82.4 H, Lymph % (Auto) 9.9 L, [place] % (Auto) 5.8, Eos % (Auto) 0.7, Baso % (Auto) 0.6, Absolute Neuts (auto) 9.9 H, Nucleated RBC % 0, Sodium 140, Potassium 4.1, Chloride 108 H, Carbon Dioxide 30.0, Anion Gap 2 L, BUN 36 H, Creatinine 1.68 H, Est GFR (MDRD) Af Amer 52 L, Est GFR (MDRD) Non-Af 43 L, BUN/Creatinine Ratio 21.4 H, Glucose 102, Calcium 9.3 05/14/23 20:05: Magnesium 2.0 05/15/23 05:51: WBC 10.5, RBC 5.11, Hgb 14.6, Hct 45.7, MCV 89.4, MCH 28.6, MCHC 31.9 L, Plt Count 158, MPV 11.7, Immature Gran % (Auto) 0.700, Neut % (Auto) 77.6 H, Lymph % (Auto) 12.6 L, [place] % (Auto) 7.0, Eos % (Auto) 1.5, Baso % (Auto) 0.6, Absolute Neuts (auto) 8.2 H, Nucleated RBC % 0, Sodium 141, Potassium 4.0, Chloride 112 H, Carbon Dioxide 23.0, Anion Gap 6, BUN 31 H, Creatinine 1.45 H, Est GFR (MDRD) Af Amer 61, Est GFR (MDRD) Non-Af 51 L, BUN/Creatinine Ratio 21.4 H, Glucose 149 H, Calcium 9.4, Total Bilirubin 1.60 H, Triglycerides 76, Cholesterol 97, LDL Cholesterol 43, VLDL Cholesterol 15, HDL Cholesterol 39 L Rhythm: EKG: ECHO: Stress Test: Cardiac Cath: PCI: CT Surgery: Holter monitor: EPS: PPM: CXR: Chest CT Scan: Radiography Diagnostic Testing: Radiology Impression Chest X-Ray 05/14/23 18:22 IMPRESSION: Mild chronic bibasilar interstitial thickening. No gross infiltration or pulmonary edema. Electronically Signed: Ellis Barriga MD at 18:48 EST , Echocardiogram 05/14/23 23:09 Interpretation Summary The estimated ejection fraction is 35-40 %. Reduced LV systolic function in comparison to previous echo 06/18/2022 Mild MR Mild TR Ordering Physician: Isabella Chappell Referring Physician: [facility] Performed By: Elizabeth Narayanan, ISABELCS, RVT Chest X-Ray 05/15/23 06:35 IMPRESSION: Cardiomegaly with findings compatible with mild interstitial edema/congestive failure. Patchy opacity at the left base peripherally representing atelectasis or early/developing pneumonia. Follow-up chest imaging to resolution recommended. Electronically Signed: Juan Diego Mosley MD at 9:24 EST ,
--- NOTE | 2023-05-15 16:49 | CASEMGMT ---
RN?CM?SURGEON ASSISTANT?CM?to room to meet with patient for initial transition planning/care coordination?assessment.?RN?CM?introduced self and role at [facility].? Pt voices understanding and consents to?assessment?at this time.? Pt resting in bed in no distress at this time.? @ bedside. Pt is A/O at this time and answers all questions appropriately.?? Care providers, pharmacy, and demographics verified/updated at this time. PCP: Lina @ [facility] Specialists: VIRIDIANA/Keren Preferred Pharmacy: [facility]. Pt states he ran out of Lasix 2 days prior to [facility] admission. He states he has a Rx @ [facility], but that he felt too crappy to go get it. Insurance: [facility], [place] Prescription Benefit:?[facility] benefits [place]. LNOK: , Hank Living Arrangements: Lives w/ in 2-story townhouse w/one step to enter. Independent. Denies difficulty w/stairs. Works part-time @ [employer]. Transportation:?Pt states drives self and states no transportation concerns at this time.? also drives. DME: States has the following DME:?2 BP machines, walker available but does not use it, functioning glucometer w/supplies, insulin w/supplies, CPAP, and pulse ox. Pt does not have home O2. He states if he qualifies for O2 @ discharge, [facility]. Pt states no need for further DME at this time.? HHC/SNF: No hx of either. Pt wishes to discharge home and denies wanting HHC. Pt wishes to return home and states has no concerns with going home at time of discharge.? CM?to follow for home oxygen needs and any further discharge planning/needs.? Pt voices no further concerns/needs at this time.? Advised pt to ask for?CM?if any further questions/concerns/needs arise.? Voices understanding. PLAN:??Home Follow for possible Home O2 @ d/c No Rx benefits. Follow Adebayo BSN?RN?CM
[2023-05-15] MEDS: Glucerna Shake 120 ML LIQUID PO (17:23)
[2023-05-15] MEDS: Rivaroxaban 20 MG Tablet PO (17:24)
[2023-05-15 17:46] LABS: Bedside Glucose 141 mg/dL (74-106)
[2023-05-15] MEDS: Tamsulosin HCl 0.4 MG Capsule 0.400000000000000022 MG PO (22:16)
[2023-05-15] MEDS: 0.9% Saline Lock 10 ML Syringe IV (22:16)
[2023-05-15] MEDS: Azithromycin 500 MG in Dextrose 5%-Water (250mL Bag) 250 ML 250 MG IV (22:17)
[2023-05-15] MEDS: Insulin Lispro 100 UNIT/ML INSULN.PEN SC (22:18)
[2023-05-15] MEDS: Insulin Human 75/25 Kwickpen 32 UNIT SC (22:19)
[2023-05-15 22:49] LABS: Bedside Glucose 159 mg/dL (74-106)
[2023-05-16] VITALS (11 sets, daily range): BP systolic 102–113; BP diastolic 59–69; PULSE 59–68; RESP 16–18; TEMP 36.5–36.9; O2SAT 94–97; BMI 30.3
[2023-05-16 04:34] LABS: Absolute Lymphocyte Count 1.71 X10^3/uL (0.83-4.51); Basophil# 0.05 X10^3/uL; Basophil% 0.5 % (0-1); Eosinophil# 0.24 X10^3/uL; Eosinophils% 2.4 % (0-5); Hematocrit 42.9 % (40-54); Hemoglobin 13.9 g/dL (13.0-16.5); Lymphocyte # 1.71 X10^3/ul (0.83-4.51); Lymphocyte % 17.4 % (19-41); Mean Corp Hgb Conc 32.4 g/dL (32-36); Mean Corpuscular Hgb 28.8 pg (27.0-32.0); Mean Platelet Vol. 11.7 fl (6.2-12.0); Monocyte# 0.73 X10^3/uL; Monocyte% 7.4 % (0-10); NRBC Flagged by Analyzer 0 % (0-5); Neutrophil # 7.01 X10^3/uL (2.7-7.7); Neutrophil % 71.7 % (47-70); Platelet Count 147 K/mm3 (150-450); RBC Distribution Width CV 15.6 % (11.6-14.6); RBC Distribution Width SD 51.4 fl (35.1-43.9); Red Blood Count 4.82 M/mm3 (4.6-6.2); White Blood Count 9.8 K/mm3 (4.4-11.0)
[2023-05-16 04:50] LABS: Anion Gap 5 (5-15); BUN 33 mg/dL (7-18); BUN/Creat Ratio 22.3 RATIO (10-20); Calcium,Total 8.8 mg/dL (8.5-10.1); Chloride 107 mmol/L (98-107); Creatinine, Serum 1.48 mg/dL (0.70-1.30); EST Glomerular Filtration Rate 50 mL/min (>60); Est Glom Filt Rate - Afr Amer 60 mL/min (>60); Estimated Creatinine Clearance 57.29 ml/min; Glucose 126 mg/dL (74-106); Potassium 3.8 mmol/L (3.5-5.1); Sodium Level 140 mmol/L (136-145)
[2023-05-16] MEDS: Levothyroxine 100 MCG Tablet 200 MCG PO (06:30)
[2023-05-16] MEDS: Acetaminophen 325 MG Tablet 650 MG PO (06:31)
[2023-05-16 06:57] LABS: Bedside Glucose 122 mg/dL (74-106)
[2023-05-16] MEDS: 0.9% Saline Lock 10 ML Syringe IV (08:33)
--- NOTE | 2023-05-16 09:47 | PN.HOSP_ITS ---
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 (05/14/23) Presence of cardiac pacemaker (05/14/23) Presence of coronary angioplasty implant and graft (05/14/23) Objective Data Objective Data Vital Signs: Vital Signs Temp Pulse Resp BP Pulse Ox O2 Del Method O2 Flow Rate 98.5 F 67 16 102/61 96 Nasal Cannula 2 05/16/23 03:34 05/16/23 08:36 05/16/23 03:34 05/16/23 03:34 05/16/23 07:34 05/16/23 08:36 05/16/23 08:36 Oxygen Flow Rate (L/min) 2 Oxygen Delivery Method Nasal Cannula Weight: 229 lb 15.074 oz Body Mass Index (BMI) 30.3 Intake & Output: Intake and Output for Last 24 Hours 05/14/23 05/15/23 05/16/23 23:59 23:59 23:59 Intake Total 2067.5 / 2067.5 255 / 255 Output Total 3455 / 3455 1275 / 1275 Balance -1387.5 / -1387.5 -1020 / -1020 Lab / Micro Data 05/16/23 04:05 05/16/23 04:05 Labs: Laboratory Results - last 24 hr 05/15/23 11:31: POC Glucose 181 H 05/15/23 17:13: POC Glucose 141 H 05/15/23 22:18: POC Glucose 159 H 05/16/23 04:05: WBC 9.8, RBC 4.82, Hgb 13.9, Hct 42.9, MCV 89.0, MCH 28.8, MCHC 32.4, RDW Std Deviation 51.4 H, RDW Coeff of [place] 15.6 H, Plt Count 147 L, MPV 11.7, Immature Gran % (Auto) 0.600, Neut % (Auto) 71.7 H, Lymph % (Auto) 17.4 L, [place] % (Auto) 7.4, Eos % (Auto) 2.4, Baso % (Auto) 0.5, Absolute Neuts (auto) 7.0, Absolute Lymphs (auto) 1.71, Nucleated RBC % 0, Sodium 140, Potassium 3.8, Chloride 107, Carbon Dioxide 28.0, Anion Gap 5, BUN 33 H, Creatinine 1.48 H, Estim Creat Clear Calc 57.29, Est GFR (MDRD) Af Amer 60, Est GFR (MDRD) Non-Af 50 L, BUN/Creatinine Ratio 22.3 H, Glucose 126 H, Calcium 8.8 05/16/23 06:28: POC Glucose 122 H Micro: Microbiology 05/15/23 07:50 Mucosa - Nose Respiratory Panel (PCR) - Final 05/15/23 00:05 Urine, Clean Catch Legionella Antigen - Final 05/15/23 00:05 Urine, Clean Catch Streptococcus pneumoniae Antigen (M - Final 05/14/23 18:18 Mucosa - Nose SARS-CoV-2, Influenza & RSV (PCR) - Final Radiography Diagnostic Testing: Radiology Impression Echocardiogram 05/14/23 23:09 Interpretation Summary The estimated ejection fraction is 35-40 %. Reduced LV systolic function in comparison to previous echo 06/18/2022 Mild MR Mild TR Ordering Physician: Isabella Chappell Referring Physician: [facility] Performed By: Elizabeth Narayanan, OPAL, RVT Physical Exam Narrative Seen and examined. Patient is states his symptoms overall better but is still on 2 L of oxygen. Has mild cough. He states he feels like he will be able to go walk tomorrow. Denies chest pain or pressure or tightness. Denies history of COPD or chronic lung disease or smoking history. History of CABG and stents Former smoker quit in 1997, smoked cigarettes about a pack per day before. Physical exam General: Alert, Oriented x3, Cooperative HEENT: Atraumatic, PERRLA, EOMI, Normocephalic Oral: Oral mucosa moist. No Gingival or Mucosal Lesions/ Ulcerations Neck: Supple, No JVD, Negative Carotid Bruits Chest wall/Lungs: Air entry diminished in bilateral lung bases. Mild bilateral lung bases coarse crepitations. Mild hypoxia but no tachypnea. Cardiovascular: Paced rhythm, Normal S1, Normal S2, No M/G/R. Has pacemaker Abdomen: Bowel Sounds Present, Soft, Non Tender, Non-Distended : No dysuria. No renal angle tenderness. No suprapubic tenderness. Extremities: No significant edema, Capillary Refill Less than 3 Seconds Skin: No rashes, No breakdown Musculoskeletal: Scar on the medial aspect of left leg from clot evacuation in the past. No Tenderness to Palpation of Joints or Extremities Neurological: Cranial nerves II-XII grossly intact, DTR 2+/4. No acute focal neurological deficit. Psych/Mental Status: Normal Affect, Appropriate. Assessment & Plan Assessment/Plan (1) Viral syndrome: PLAN: Plan The patient is a 72 y/o M Was admitted for generalized weakness when he tried to go for work, flulike symptoms, cough with clear sputum, shortness of breath on exertion since last week.He went to urgent care and had chest x-ray influenza swab which were negative chest did not show pneumonia. Patient was started on doxycycline but reported has productive cough. #1. Generalized weakness suspected due to acute viral syndrome, suspected left basilar pneumonia with associated hypoxia: Patient is being admitted in PCU. Chest x-ray shows mild chronic diffuse interstitial pattern with patchy opacity at left base possible atelectasis or early developing pneumonia. Repeat chest x-ray prominent interstitial markings more than previous. RSV, influenza and COVID PCR negative. Urinary antigens are negative. Patient on IV ceftriaxone and azithromycin. 05/16: Respiratory panel is negative. Continue above antibiotic. 2. Elevated troponin with history of CAD status post PCI and CABG and chronic HFpEF: Patient first troponin 132, repeat 144 and 95 therefore decreasing trends. 2D echo requested. Most likely elevated troponin due to demand ischemia in view of CKD. EKG shows paced rhythm with no acute evidence of ischemia. Patient on metoprolol Xarelto. Wireline Field Operator is consulted. 2D echo ordered. previous echo on 06/08/2022 showed EF 55%, no regional wall motion abnormality, LA mildly enlarged. Trivial TR, trivial MR. Patient does not seem to be in acute heart failure 05/15: Wireline Field Operator was consulted. Repeat 2D echo shows reduced LV function in the range of 35 to 40%. Recommended outpatient Lexiscan to evaluate for myocardial ischemia 05/16: Heart rate 67/min, paced rhythm. Optimize medication with metoprolol 25 mg twice daily. Decrease losartan as BP is low. 3. PAF/Flutter status post pacemaker for sick sinus syndrome: We will continue patient home metoprolol, losartan and Zetia; not on statin due to myalgia/allergy and Xarelto at home regimen, hospital monitor shows paced rhythm. #4. Chronic Kidney Disease Stage III, type a: Admission BUN/Cr 36/1.68, baseline renal function primarily 1.4-1.6, similar to previous, will continue to trend. 05/16: Creatinine 1.48. #5. Diabetes mellitus type II: Hold oral home regimen, continue home insulin regimen, ADA diet, accu checks w/ ISS. 05/16 glucose is better #6. Hypothyroidism: continue patient on levothyroxine regimem. #7. History of CVA: Will continue aspirin, Xarelto, hypertensive regimen, d iabetic regimen with alterations as noted, not on statin therapy, continue Zetia. #8. BPH: We will continue patient on Flomax regimen. #9. History thrombosis left common femoral artery: continue patient home Xarelto regimen. #10. Hypertension: Continue home regimen including losartan, isosorbide, metoprolol, Lasix, PRN hydralazine. #11. Hyperlipidemia: We will continue patient home Zetia regimen. Not on statin therapy. FLP in AM. #12. Obesity: Weight loss and lifestyle changes encouraged. #13. Former tobacco use: Encourage continued tobacco cessation. #14. HFpEF: Will continue patient on aspirin, Xarelto, metoprolol, losartan, Lasix home regimen, will judiciously hydrate only if necessary. Repeat echocardiogram requested as noted. #15. WILLIAN: BiPAP nightly. #16. DVT prophylaxis: We will continue patient home Xarelto regimen. #17. CODE status: Patient does not have healthcare power of corporate associate attorney or living will in place but notes that his would be his primary decision-maker. Full Code. Charges/Coding Visit Charges Inpatient E&M: 60016 Subs Hosp L2
[2023-05-16] MEDS: Aspirin 81 MG TAB.CHEW PO (11:02)
[2023-05-16] MEDS: Ezetimibe 10 MG Tablet PO (11:02)
[2023-05-16] MEDS: Isosorbide Mononitrate 30 MG Tablet PO (11:02)
[2023-05-16] MEDS: Furosemide 40 MG Tablet PO ×2 (11:03→17:21)
[2023-05-16] MEDS: Metoprolol Tartrate 25 MG Tablet PO ×2 (11:03→21:09)
[2023-05-16] MEDS: Insulin Human 75/25 Kwickpen 40 UNIT SC (11:04)
[2023-05-16] MEDS: Losartan Potassium 50 MG Tablet PO (11:19)
[2023-05-16] MEDS: Glucerna Shake 120 ML LIQUID PO ×2 (11:20→17:18)
[2023-05-16] MEDS: Azithromycin 250 MG Tablet 500 MG PO (11:20)
[2023-05-16] MEDS: guaiFENesin/D-Methorphan TAB.SR.12H 2 TABLET PO ×2 (11:20→21:09)
[2023-05-16 11:31] LABS: Bedside Glucose 237 mg/dL (74-106)
[2023-05-16 12:53] LABS: Magnesium 1.9 mg/dL (1.6-2.6)
[2023-05-16 12:58] LABS: Phosphorus 3.4 mg/dL (2.5-4.9)
--- NOTE | 2023-05-16 13:23 | PN.CARD_ITS ---
Subjective Subjective I saw this patient today bedside He was standing in the room shortness of breath improving as well as oxygen saturation Does not have any active chest pain Objective Data Vital Signs: Vital Signs Temp Pulse Resp BP Pulse Ox O2 Del Method O2 Flow Rate 97.7 F L 67 18 113/59 L 94 Room Air 2 05/16/23 10:23 05/16/23 11:03 05/16/23 10:32 05/16/23 11:03 05/16/23 11:49 05/16/23 11:49 05/16/23 10:23 Oxygen Flow Rate (L/min) 2 Oxygen Delivery Method Room Air Weight: 229 lb 15.074 oz Body Mass Index (BMI) 30.3 Intake & Output: Intake and Output for Last 24 Hours 05/14/23 05/15/23 05/16/23 23:59 23:59 23:59 Intake Total 2067.5 / 2067.5 255 / 255 Output Total 3455 / 3455 1275 / 1275 Balance -1387.5 / -1387.5 -1020 / -1020 Lab / Micro Data 05/16/23 04:05 05/16/23 04:05 Labs: Laboratory Results - last 24 hr 05/15/23 17:13: POC Glucose 141 H 05/15/23 22:18: POC Glucose 159 H 05/16/23 04:05: WBC 9.8, RBC 4.82, Hgb 13.9, Hct 42.9, MCV 89.0, MCH 28.8, MCHC 32.4, RDW Std Deviation 51.4 H, RDW Coeff of [place] 15.6 H, Plt Count 147 L, MPV 11.7, Immature Gran % (Auto) 0.600, Neut % (Auto) 71.7 H, Lymph % (Auto) 17.4 L, [place] % (Auto) 7.4, Eos % (Auto) 2.4, Baso % (Auto) 0.5, Absolute Neuts (auto) 7.0, Absolute Lymphs (auto) 1.71, Nucleated RBC % 0, Sodium 140, Potassium 3.8, Chloride 107, Carbon Dioxide 28.0, Anion Gap 5, BUN 33 H, Creatinine 1.48 H, Estim Creat Clear Calc 57.29, Est GFR (MDRD) Af Amer 60, Est GFR (MDRD) Non-Af 50 L, BUN/Creatinine Ratio 22.3 H, Glucose 126 H, Calcium 8.8, Phosphorus 3.4, Magnesium 1.9 05/16/23 06:28: POC Glucose 122 H 05/16/23 11:01: POC Glucose 237 H Micro: Microbiology 05/15/23 07:50 Mucosa - Nose Respiratory Panel (PCR) - Final Cardiology Labs/Tests 05/16/23 04:05: WBC 9.8, RBC 4.82, Hgb 13.9, Hct 42.9, MCV 89.0, MCH 28.8, MCHC 32.4, Plt Count 147 L, MPV 11.7, Immature Gran % (Auto) 0.600, Neut % (Auto) 71.7 H, Lymph % (Auto) 17.4 L, [place] % (Auto) 7.4, Eos % (Auto) 2.4, Baso % (Auto) 0.5, Absolute Neuts (auto) 7.0, Nucleated RBC % 0, Sodium 140, Potassium 3.8, Chloride 107, Carbon Dioxide 28.0, Anion Gap 5, BUN 33 H, Creatinine 1.48 H , Est GFR (MDRD) Af Amer 60, Est GFR (MDRD) Non-Af 50 L, BUN/Creatinine Ratio 22.3 H, Glucose 126 H, Calcium 8.8, Phosphorus 3.4, Magnesium 1.9 Rhythm: EKG: ECHO: Stress Test: Cardiac Cath: PCI: CT Surgery: Holter monitor: EPS: PPM: CXR: Chest CT Scan: Radiography Diagnostic Testing: Radiology Impression Echocardiogram 05/14/23 23:09 Interpretation Summary The estimated ejection fraction is 35-40 %. Reduced LV systolic function in comparison to previous echo 06/18/2022 Mild MR Mild TR Ordering Physician: Isabella Chappell Referring Physician: [facility] Performed By: Elizabeth Narayanan, OPAL, RVT Physical Exam Cardio Cardio Narrative: Underlying cardiac rhythm is paced ventricular rhythm Cardiac exam S1-S2 is irregular Chest exam mildly diminished air entry bilateral. Assessment & Plan Assessment/Plan (1) Elevated troponin level: (2) Chronic anticoagulation: (3) Shortness of breath: (4) Presence of cardiac pacemaker: (5) Paroxysmal atrial flutter: (6) Sick sinus syndrome: (7) CKD (chronic kidney disease): (8) PAD (peripheral artery disease): (9) CAD (coronary artery disease): (10) CVA (cerebral vascular accident): (11) S/P coronary artery stent placement: (12) Diabetes mellitus: QUALIFIERS: Qualified Code(s): E11.9 - Type 2 diabetes mellitus without complications; E11.9 - Type 2 diabetes mellitus without complications; E11.9 - Type 2 diabetes mellitus without complications (13) Hyperlipidemia: QUALIFIERS: Hyperlipidemia type: unspecified Qualified Code(s): E78.5 - Hyperlipidemia, unspecified PLAN: Plan 72-year-old patient with symptoms of shortness of breath Cardiac consultation requested , mild elevation of cardiac biomarker. Noted his serum creatinine is 1.48 This patient has extensive medical comorbidities On this admission had a viral syndrome with shortness of breath Repeat echocardiogram showed moderate LV dysfunction EF in the range of 35-40% o n review of his previous cardiac evaluation his EF by nuclear, cardiac catheterization and echocardiogram appears to be similar around 40-45% at that time. And has been treated with medical therapy The cardiac history had a history of CAD with non-ST elevation AK And had a cardiac catheterization and a bypass surgery in 2017 where he had CABG Subsequently in April 05, 2018 he had a PCI and stent of the ramus intermedius using drug-eluting stent The cardiac catheterization demonstrated Distal left main around 5030 Proximal LAD 75 This patient has extensive cardiac history Mid LAD is occluded. With filling from the THRASHER As well his had a multivessel CAD With patent THRASHER to LAD and occluded SVG to left circumflex OM,occluded SVG to RCA. left to right collaterals. Other medical problem include history of atrial flutter and has been on anticoagulation. 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 Recommended evaluation by nuclear stress test. And to continue medical treatment The last echocardiogram showed reduced LV function EF 35-40% with mild MR mild TR., Mild change from previous echo with mildly reduced ejection fraction at th is time. Will continue to monitor and follow-up clinically. I discussed the cardiac care plan with medical team. And will set up the patient for Vin hastings Patient to follow-up with his primary instructor of spanish [facility] Dr.Arshad Luis Perry MD,[facility]
[2023-05-16 17:10] LABS: Bedside Glucose 150 mg/dL (74-106)
[2023-05-16] MEDS: Rivaroxaban 20 MG Tablet PO (17:20)
[2023-05-16] MEDS: Tamsulosin HCl 0.4 MG Capsule 0.400000000000000022 MG PO (21:10)
[2023-05-16] MEDS: Insulin Human 75/25 Kwickpen 32 UNIT SC (21:10)
[2023-05-16] MEDS: Ceftriaxone 1 GM/50 ML BAG IV (21:12)
[2023-05-16 22:30] LABS: Bedside Glucose 168 mg/dL (74-106)
[2023-05-17 01:55] VITALS: BMI 30.3
[2023-05-17 03:00] VITALS: BP 140/92; PULSE 59; RESP 18; TEMP 36.8; O2SAT 93
[2023-05-17] MEDS: Losartan Potassium 50 MG Tablet PO (04:51)
[2023-05-17] MEDS: 0.9% Saline Lock 10 ML Syringe IV (04:52)
[2023-05-17 05:11] LABS: Bedside Glucose 98 mg/dL (74-106)
[2023-05-17 07:30] VITALS: BP 109/77; PULSE 84; RESP 16; TEMP 36.3; O2SAT 95
[2023-05-17] MEDS: Aspirin 81 MG TAB.CHEW PO (07:33)
[2023-05-17 07:48] VITALS: O2SAT 97
[2023-05-17 08:00] VITALS: PULSE 84; RESP 16; O2SAT 95
[2023-05-17 11:16] VITALS: BP 133/81; PULSE 72; RESP 16; TEMP 36.2; O2SAT 96
[2023-05-17 11:24] VITALS: BP 133/81; PULSE 72
[2023-05-17] MEDS: Metoprolol Tartrate 25 MG Tablet PO (11:24)
[2023-05-17] MEDS: Furosemide 40 MG Tablet PO (11:25)
[2023-05-17] MEDS: Isosorbide Mononitrate 30 MG Tablet PO (11:25)
[2023-05-17] MEDS: guaiFENesin/D-Methorphan TAB.SR.12H 2 TABLET PO (11:26)
[2023-05-17] MEDS: Azithromycin 250 MG Tablet 500 MG PO (11:26)
[2023-05-17] MEDS: Ezetimibe 10 MG Tablet PO (11:26)
[2023-05-17 12:05] LABS: Bedside Glucose 165 mg/dL (74-106)
--- NOTE | 2023-05-17 12:21 | DCINST_ITS ---
Discharge Instructions Diet Discharge Diet: No restrictions Activity Discharge Activity: Return to Normal Activity Weight Bearing Status: Weight bearing as tolerated Dressing / Incision Call your doctor if you observe: Fever of 101 or Higher, Coldness, Increased Pain, Numbness or Tingling, Change in Color, Inability to urinate, Inability to have a bowel movement, Shortness of breath, Dizziness, Fainting spells, Swelling in the ankles, Chest pain, Prolonged hiccupping, Increased palpitations (irregular heartbeat) and Calf discomfort Follow Up Care When: IN 2 WEEKS Test Results: Test results from this visit will be discussed in further detail at your follow- up appointment, if applicable. Discharge Plan Admission Admit Date/Time: 05/14/23 21:39 Primary Reason for Your Visit: Left basilar pneumonia. Attending Provider: Sameer Houston Primary Care Provider: [place], [place] Consulting Providers: Jaylan Perry; Isabella Chappell Discharge Orders/Prescriptions Prescriptions: New Mucinex DM 30-600 mg Tablet Extended Release 12 Hr 2 tab PO BID 7 Days Qty: 28 0RF levofloxacin 500 mg tablet 500 mg PO DAILY 5 Days Qty: 5 0RF Continued metformin 500 mg tablet 1,000 mg PO QHS nitroglycerin 0.4 mg tablet, sublingual 0.4 mg SUBLINGUAL Q5-15M PRN (Reason: chest pain) Qty: 90 6RF Rx Instructions: until response; do not exceed 3 doses per episode isosorbide mononitrate 60 mg tablet extended release 24 hr 30 mg PO DAILY metoprolol tartrate 25 mg tablet 12.5 mg PO BID Rx Instructions: Hold for heart less than 50 or systolic blood pressure less than 100 mmHg. Novolin 70/30 U-100 Insulin 100 unit/mL (70-30) suspension 32 unit SUBCUT QHS Novolin 70/30 U-100 Insulin 100 unit/mL (70-30) suspension 40 unit SUBCUT DAILY aspirin 81 MG tablet,chewable 81 mg PO DAILY@0800 ezetimibe [Zetia] 10 mg tablet 10 mg PO DAILY levothyroxine 175 mcg tablet 200 mcg PO DAILY furosemide [Lasix] 40 mg tablet 40 mg PO BID 30 Days Qty: 60 2RF Hold Instructions: Ordered Rx Instructions: Take furosemide 80 mg at 10 AM if increased leg swelling or weight gain 5 pounds in 1 week. empagliflozin 25 mg tablet 12.5 mg PO DAILY magnesium glycinate 100 mg magnesium capsule 325 mg PO BID cholecalciferol (vitamin D3) [VitaJoy Daily D] 25 mcg (1,000 unit) tablet,chewable 25 mcg PO DAILY furosemide [Lasix] 40 mg tablet 40 mg PO BID tamsulosin 0.4 mg Capsule 0.4 mg PO QHS Xarelto 20 mg tablet 20 mg PO QHS Rx Instructions: must administer with evening meal Changed losartan 100 mg tablet 50 mg PO DAILY 30 Days Qty: 0 0RF Rx Instructions: Dose decreased to 50 mg daily. Hold for SBP less than 130 mmHg Discontinued doxycycline hyclate 100 mg tablet 100 mg PO BID Patient Comments: Take 1 tablet by mouth two times a day for 10 days. Referrals / Follow Up: Moreno Smith MD [Med Staff - Active Staff] - Within 1 Month Finesse Mosley DO [Med Staff - Active Staff] - Within 1 Month (Outpatient PFT and sleep study.) [facility] [Primary Care Provider[facility] - Disposition Disposition (needs filled in before D/C Order can be placed): Home, Self Care
--- NOTE | 2023-05-17 12:36 | PCM.DC.SUM ---
Providers Date of Admission: 05/14/23 Date of Discharge: 05/17/23 Primary Care Physician: [facility] Consultations 05/14/23 23:09 Consult: Cardiology Routine Consulting Provider: Jaylan Perry Reason for Consult: Elevated trop, suspect demand with viral illness EMERGENT Consult: No MD Notified: Yes Date Notified: 05/14/23 Time Notified: 22:33 Method of Notification: Text Reason For Visit: HYPOXIA, VIRAL SYNDROME, ELEVATED TROP Diagnosis Discharge Diagnosis (1) Elevated troponin level: Status: Acute Code(s): R79.89 - Other specified abnormal findings of blood chemistry (2) Chronic anticoagulation: Status: Acute Code(s): Z79.01 - manager terminal (current) use of anticoagulants (3) Shortness of breath: Status: Acute Code(s): R06.02 - Shortness of breath (4) Presence of cardiac pacemaker: Status: Acute Code(s): Z95.0 - Presence of cardiac pacemaker (5) Paroxysmal atrial flutter: Status: Chronic Code(s): I48.92 - Unspecified atrial flutter (6) Sick sinus syndrome: Status: Chronic Code(s): I49.5 - Sick sinus syndrome (7) CKD (chronic kidney disease): Status: Chronic Code(s): N18.9 - Chronic kidney disease, unspecified (8) PAD (peripheral artery disease): Status: Acute Code(s): I73.9 - Peripheral vascular disease, unspecified (9) CAD (coronary artery disease): Status: Chronic Code(s): I25.10 - Atherosclerotic heart disease of [place] coronary artery without angina pectoris (10) CVA (cerebral vascular accident): Status: Acute Code(s): I63.9 - Cerebral infarction, unspecified (11) S/P coronary artery stent placement: Status: Chronic Code(s): Z95.5 - Presence of coronary angioplasty implant and graft (12) Diabetes mellitus: Status: Chronic Code(s): E11.9 - Type 2 diabetes mellitus without complications Qualifiers: Qualified Code(s): E11.9 - Type 2 diabetes mellitus without complications; E11.9 - Type 2 diabetes mellitus without complications; E11.9 - Type 2 diabetes mellitus without complications (13) Hyperlipidemia: Status: Chronic Code(s): E78.5 - Hyperlipidemia, unspecified Qualifiers: Hyperlipidemia type: unspecified Qualified Code(s): E78.5 - Hyperlipidemia, unspecified Plan The patient is a 72 y/o M Was admitted for generalized weakness when he tried to go for work, flulike symptoms, cough with clear sputum, shortness of breath on exertion since last week.He went to urgent care and had chest x-ray influenza swab which were negative chest did not show pneumonia. Patient was started on doxycycline but reported has productive cough. #1. Generalized weakness suspected due to acute viral syndrome, suspected left basilar pneumonia with associated hypoxia: Patient is being admitted in PCU. Chest x-ray shows mild chronic diffuse interstitial pattern with patchy opacity at left base possible atelectasis or early developing pneumonia. Repeat chest x-ray prominent interstitial markings more than previous. RSV, influenza and COVID PCR negative. Urinary antigens are negative. Patient on IV ceftriaxone and azithromycin. 05/16: Respiratory panel is negative. Continue above antibiotic. 05/17: Patient had about 3 days of antibiotic therefore discharged on levofloxacin 500 mg once daily for 5 more days. Follow-up in pulmonary clinic as patient has history of smoking And needs PFT. 2. Elevated troponin with history of CAD status post PCI and CABG and chronic HFpEF: Patient first troponin 132, repeat 144 and 95 therefore decreasing trends. 2D echo requested. Most likely elevated troponin due to demand ischemia in view of CKD. EKG shows paced rhythm with no acute evidence of ischemia. Patient on metoprolol Xarelto. Coating Inspector is consulted. 2D echo ordered. previous echo on 06/08/2022 showed EF 55%, no regional wall motion abnormality, LA mildly enlarged. Trivial TR, trivial MR. Patient does not seem to be in acute heart failure 05/15: Coating Inspector was consulted. Repeat 2D echo shows reduced LV function in the range of 35 to 40%. Recommended outpatient Lexiscan to evaluate for myocardial ischemia 05/16: Heart rate 67/min, paced rhythm. Optimize medication with metoprolol 25 mg twice daily. Decrease losartan as BP is low. 05/17: Paced rhythm. Lexiscan nuclear stress test is negative for acute ischemia. BP on systolic 100 and was on losartan 50 mg daily here therefore discharged on the same dose 50 mg daily. 3. PAF/Flutter status post pacemaker for sick sinus syndrome: We will continue patient home metoprolol, losartan and Zetia; not on statin due to myalgia/allergy and Xarelto at home regimen, surveillance system monitor shows paced rhythm. #4. Chronic Kidney Disease Stage III, type a: Admission BUN/Cr 36/1.68, baseline renal function primarily 1.4-1.6, similar to previous, will continue to trend. 05/16: Creatinine 1.48. #5. Diabetes mellitus type II: Hold oral home regimen, continue home insulin regimen, ADA diet, accu checks w/ ISS. 05/16 glucose is better #6. Hypothyroidism: continue patient on levothyroxine regimem. #7. History of CVA: Will continue aspirin, Xarelto, hypertensive regimen, diabetic regimen with alterations as noted, not on statin therapy, continue Zetia. #8. BPH: We will continue patient on Flomax regimen. #9. History thrombosis left common femoral artery: continue patient home Xarelto regimen. #10. Hypertension: Continue home regimen including losartan, isosorbide, metoprolol, Lasix, PRN hydralazine. #11. Hyperlipidemia: We will continue patient home Zetia regimen. Not on statin therapy. FLP in AM. #12. Obesity: Weight loss and lifestyle changes encouraged. #13. Former tobacco use: Encourage continued tobacco cessation. #14. HFpEF: Will continue patient on aspirin, Xarelto, metoprolol, losartan, Lasix home regimen, will judiciously hydrate only if necessary. Repeat echocardiogram requested as noted. #15. WILLIAN: BiPAP nightly. #16. DVT prophylaxis: We will continue patient home Xarelto regimen. #17. CODE status: Patient does not have healthcare power of admission liaison or living will in place but notes that his would be his primary decision-maker. Full Code. Discharge medication reconciliation done. Discharge follow-up instructions completed. Discharge process discussed with the patient and all questions were answered to patient's satisfaction. Follow with PCP in 1 to 2 weeks Total time spent, exact 35 minutes on discharge meds reconciliation, examination, coordination of care with nurses and ancillary staff, review of imaging and blood test and discussion with the patient on follow-up instructions. Medications at Discharge Home Medications metformin 500 mg tablet 1,000 mg PO QHS DM 03/19/17 nitroglycerin 0.4 mg sublingual tablet 0.4 mg sublingual Q5-15M PRN chest pain #90 tabs 05/25/18 aspirin 81 mg chewable tablet 81 mg PO DAILY@0800 HEALTH MAINTENANCE 06/16/22 ezetimibe 10 mg tablet (Zetia) 10 mg PO DAILY DM 06/16/22 insulin human U-100 NPH-regulr 70-30 mix 100 unit/mL subcutaneous susp (Novolin 70/30 U-100 Insulin) 32 unit subcut QHS DM 06/16/22 insulin human U-100 NPH-regulr 70-30 mix 100 unit/mL subcutaneous susp (Novolin 70/30 U-100 Insulin) 40 unit subcut DAILY DM 06/16/22 levothyroxine 175 mcg tablet 200 mcg PO DAILY THYROID 07/02/22 furosemide 40 mg tablet (Lasix) 40 mg PO BID fluid retention 30 days #60 tabs 10/29/22 empagliflozin 25 mg tablet 12.5 mg PO DAILY diabetes 11/24/22 isosorbide mononitrate 60 mg tablet,extended release 24 hr 30 mg PO DAILY HEART 04/01/23 metoprolol tartrate 25 mg tablet 12.5 mg PO BID HEART/BLOOD PRESSURE 04/01/23 cholecalciferol (vitamin D3) 25 mcg (1,000 unit) chewable tablet (VitaJoy Daily D) 25 mcg PO DAILY 05/14/23 furosemide 40 mg tablet (Lasix) 40 mg PO BID 05/14/23 magnesium glycinate 325 mg PO BID 05/14/23 rivaroxaban 20 mg tablet (Xarelto) 20 mg PO QHS blood thinner 05/14/23 tamsulosin 0.4 mg capsule 0.4 mg PO QHS prostate 05/14/23 dextromethorphan-guaifenesin 30 mg-600 mg tablet extended [id number] hr (Mucinex DM) 2 tab PO BID 7 days #28 tabs 05/17/23 levofloxacin 500 mg tablet 500 mg PO DAILY 5 days #5 tabs 05/17/23 losartan 100 mg tablet 50 mg (1/2 x 100 mg) PO DAILY 30 days #0 tabs 05/17/23 Physical Exam Narrative Seen and examined. Patient is states his symptoms overall better has much improved. Hypoxia has resolved. Cough is also better. Going for nuclear stress test today. Denies history of COPD or chronic lung disease or smoking history. History of CABG and stents Former smoker quit in 1997, smoked cigarettes about a pack per day before. Physical exam General: Alert, Oriented x3, Cooperative HEENT: Atraumatic, PERRLA, EOMI, Normocephalic Oral: Oral mucosa moist. No Gingival or Mucosal Lesions/ Ulcerations Neck: Supple, No JVD, Negative Carotid Bruits Chest wall/Lungs: Air entry diminished in bilateral lung bases. Mild occasional coarse crepitation otherwise much improved Cardiovascular: Paced rhythm, Normal S1, Normal S2, No M/G/R. Has pacemaker Abdomen: Bowel Sounds Present, Soft, Non Tender, Non-Distended : No dysuria. No renal angle tenderness. No suprapubic tenderness. Extremities: No significant edema, Capillary Refill Less than 3 Seconds Skin: No rashes, No breakdown Musculoskeletal: Scar on the medial aspect of left leg from clot evacuation in the past. No Tenderness to Palpation of Joints or Extremities Neurological: Cranial nerves II-XII grossly intact, DTR 2+/4. No acute focal neurological deficit. Psych/Mental Status: Normal Affect, Appropriate. Weight / BMI Weight Weight: 229 lb 11.547 oz Body Mass Index (BMI) 30.3 ABG / Lab / Microbiology Data 05/16/23 04:05 05/16/23 04:05 Laboratory: Laboratory Results - last 24 hr 05/16/23 04:05: Phosphorus 3.4, Magnesium 1.9 05/16/23 16:35: POC Glucose 150 H 05/16/23 21:07: POC Glucose 168 H 05/17/23 04:49: POC Glucose 98 05/17/23 11:19: POC Glucose 165 H Microbiology: Microbiology 05/15/23 07:50 Mucosa - Nose Respiratory Panel (PCR) - Final 05/15/23 00:05 Urine, Clean Catch Legionella Antigen - Final 05/15/23 00:05 Urine, Clean Catch Streptococcus pneumoniae Antigen (M - Final 05/14/23 18:18 Mucosa - Nose SARS-CoV-2, Influenza & RSV (PCR) - Final D/C Instructions Discharge Diet: No restrictions Weight Bearing Status: Weight bearing as tolerated Call your doctor if you observe: Fever of 101 or Higher, Coldness, Increased Pain, Numbness or Tingling, Change in Color, Inability to urinate, Inability to have a bowel movement, Shortness of breath, Dizziness, Fainting spells, Swelling in the ankles, Chest pain, Prolonged hiccupping, Increased palpitations (irregular heartbeat) and Calf discomfort When: IN 2 WEEKS Meaningful Use Info Meaningful Use Diagnoses (Choose all that apply): None applicable Discharge Plan Admission Admit Date/Time: 05/14/23 21:39 Primary Reason for Your Visit: Left basilar pneumonia. Attending Provider: Sameer Houston Primary Care Provider: [facility] Consulting Providers: Jaylan Perry; Isabella Chappell Discharge Orders/Prescriptions Prescriptions: New Mucinex DM 30-600 mg Tablet Extended Release 12 Hr 2 tab PO BID 7 Days Qty: 28 0RF levofloxacin 500 mg tablet 500 mg PO DAILY 5 Days Qty: 5 0RF Continued metformin 500 mg tablet 1,000 mg PO QHS nitroglycerin 0.4 mg tablet, sublingual 0.4 mg SUBLINGUAL Q5-15M PRN (Reason: chest pain) Qty: 90 6RF Rx Instructions: until response; do not exceed 3 doses per episode isosorbide mononitrate 60 mg tablet extended release 24 hr 30 mg PO DAILY metoprolol tartrate 25 mg tablet 12.5 mg PO BID Rx Instructions: Hold for heart less than 50 or systolic blood pressure less than 100 mmHg. Novolin 70/30 U-100 Insulin 100 unit/mL (70-30) suspension 32 unit SUBCUT QHS Novolin 70/30 U-100 Insulin 100 unit/mL (70-30) suspension 40 unit SUBCUT DAILY aspirin 81 MG tablet,chewable 81 mg PO DAILY@0800 ezetimibe [Zetia] 10 mg tablet 10 mg PO DAILY levothyroxine 175 mcg tablet 200 mcg PO DAILY furosemide [Lasix] 40 mg tablet 40 mg PO BID 30 Days Qty: 60 2RF Hold Instructions: MD Ordered Rx Instructions: Take furosemide 80 mg at 10 AM if increased leg swelling or weight gain 5 pounds in 1 week. empagliflozin 25 mg tablet 12.5 mg PO DAILY magnesium glycinate 100 mg magnesium capsule 325 mg PO BID cholecalciferol (vitamin D3) [VitaJoy Daily D] 25 mcg (1,000 unit) tablet,chewable 25 mcg PO DAILY furosemide [Lasix] 40 mg tablet 40 mg PO BID tamsulosin 0.4 mg Capsule 0.4 mg PO QHS Xarelto 20 mg tablet 20 mg PO QHS Rx Instructions: must administer with evening meal Changed losartan 100 mg tablet 50 mg PO DAILY 30 Days Qty: 0 0RF Rx Instructions: Dose decreased to 50 mg daily. Hold for SBP less than 130 mmHg Discontinued doxycycline hyclate 100 mg tablet 100 mg PO BID Patient Comments: Take 1 tablet by mouth two times a day for 10 days. Referrals / Follow Up: Moreno Smith MD [Med Staff - Active Staff] - Within 1 Month Finesse Mosley DO [Med Staff - Active Staff] - Within 1 Month (Outpatient PFT and sleep study.) [facility] [[facility] - Disposition Disposition (needs filled in before D/C Order can be placed): Home, Self Care Charges/Coding Visit Charges Inpatient E&M: 65699 Disch Hosp >30min
--- NOTE | 2023-05-17 12:45 | STRESSREP ---
Stress Test Report Pharmacologic myocardial perfusion stress test. 72-year-old man with a history of coronary artery disease Resting EKG demonstrates atrial fibrillation with ventricular pacing and a rate of 70 bpm Resting blood pressure is 100/62 mmHg. 0.4 mg of regadenoson was infused per usual protocol followed by rapid intravenous saline flush injection. Continuous EKG monitoring was performed. The maximum heart rate was 105 bpm which was 70% of max impacted heart rate the maximum workload was 1 metabolic equivalent. At rest there were no ST or T wave changes noted to suggest ischemia and at peak infusion nonspecific ST changes were noted which did not meet the criteria for ischemia. No clinical angina is noted. The final blood pressure was 112/62 mmHg. Myocardial perfusion protocol. 15.0 mCi of technetium 99m sestamibi was injected at rest. 0.4 mg of regadenoson was infused per usual protocol. At peak infusion 44.7 mCi of technetium 99m sestamibi was injected stress images were obtained stress and rest images were reconstructed and compared in the short axis vertical long and horizontal long axis. Gated images were also obtained. Perfusion SPECT analysis: Review of the stress images demonstrate normal uptake of tracer noted in all areas of the myocardium but there is an area involving the inferior apex as well as mid inferior wall with a defect. The resting images similar demonstrated normal uptake of tracer noted in all areas of the myocardium except for the above-named areas with minimal improvement at the edges suggestive of a previous inferior infarct, apical infarct and minimal mis-infarct ischemia. Gated SPECT analysis: The gated ejection fraction is 33%. Conclusion: Minimally abnormal pharmacologic myocardial perfusion stress test. Previous inferior infarct, apical infarct and inferior apical ischemia Reduced ejection fraction.
--- NOTE | 2023-05-17 13:01 | CASEMGMT ---
Patient has order for discharge. Patient has script for Levaquin and Mucinex DM. RN CM called [facility] and Levaquin cost is $13.85. RN CM in to discuss needs at discharge and updated regarding cost of antibiotic. Patient states he can afford ATB and will purchase Mucinex over the counter. Patient denied needs or help at discharge. Patient had no further questions or concerns.
--- NOTE | 2023-05-17 14:06 | PHA.DC_ITS ---
Pharmacy [facility] has performed discharge medication reconciliation and counseling for this patient. 1. LEVOFLOXACIN 500MG PO DAILY X 5 DAYS 2. MUCINEX DM 2T PO BID X 7 DAYS The patient's discharge medication list was reviewed for discrepancies and discrepancies were resolved. The patient was counseled on the following discharge medications and changes in medications for homegoing were reviewed. The Reason for Use, instructions for use, and potential side effects were reviewed for all new medications. The patient's questions regarding all of their medications were answered. The patient was able to verbally demonstrate an understanding of their discharge medications. Patient counseled by pharmacy customer care specialist, Uriah. Medications at Discharge Home Medications metformin 500 mg tablet 1,000 mg PO QHS DM 03/19/17 nitroglycerin 0.4 mg sublingual tablet 0.4 mg sublingual Q5-15M PRN chest pain #90 tabs 05/25/18 aspirin 81 mg chewable tablet 81 mg PO DAILY@0800 HEALTH MAINTENANCE 06/16/22 ezetimibe 10 mg tablet (Zetia) 10 mg PO DAILY DM 06/16/22 insulin human U-100 NPH-regulr 70-30 mix 100 unit/mL subcutaneous susp (Novolin 70/30 U-100 Insulin) 32 unit subcut QHS DM 06/16/22 insulin human U-100 NPH-regulr 70-30 mix 100 unit/mL subcutaneous susp (Novolin 70/30 U-100 Insulin) 40 unit subcut DAILY DM 06/16/22 levothyroxine 175 mcg tablet 200 mcg PO DAILY THYROID 07/02/22 furosemide 40 mg tablet (Lasix) 40 mg PO BID fluid retention 30 days #60 tabs 10/29/22 empagliflozin 25 mg tablet 12.5 mg PO DAILY diabetes 11/24/22 isosorbide mononitrate 60 mg tablet,extended release 24 hr 30 mg PO DAILY HEART 04/01/23 metoprolol tartrate 25 mg tablet 12.5 mg PO BID HEART/BLOOD PRESSURE 04/01/23 cholecalciferol (vitamin D3) 25 mcg (1,000 unit) chewable tablet (VitaJoy Daily D) 25 mcg PO DAILY 05/14/23 furosemide 40 mg tablet (Lasix) 40 mg PO BID 05/14/23 magnesium glycinate 325 mg PO BID 05/14/23 rivaroxaban 20 mg tablet (Xarelto) 20 mg PO QHS blood thinner 05/14/23 tamsulosin 0.4 mg capsule 0.4 mg PO QHS prostate 05/14/23 dextromethorphan-guaifenesin 30 mg-600 mg tablet extended hr (Mucinex DM) 2 tab PO BID 7 days #28 tabs 05/17/23 levofloxacin 500 mg tablet 500 mg PO DAILY 5 days #5 tabs 05/17/23 losartan 100 mg tablet 50 mg (1/2 x 100 mg) PO DAILY 30 days #0 tabs 05/17/23
== END 2023-05-17 15:56 | disposition home or self-care (01) | DRG 194 ==
LOC: ED 21:29 → PCU 22:18
PROVIDERS: Physician Assistant; Admitting Provider Family Medicine; Emergency Provider Emergency Medicine; Visit Provider Internal Medicine
DX: J18.9 Pneumonia, unspecified organism (principal); I13.0 Hypertensive heart and chronic kidney disease with heart failure and stage 1 through stage 4 chronic kidney disease, or unspecified chronic kidney disease; I50.32 Chronic diastolic (congestive) heart failure; I24.89 Other forms of acute ischemic heart disease; I48.92 Unspecified atrial flutter; I45.2 Bifascicular block; E11.22 Type 2 diabetes mellitus with diabetic chronic kidney disease; N18.30 Chronic kidney disease, stage 3 unspecified; E11.51 Type 2 diabetes mellitus with diabetic peripheral angiopathy without gangrene; E11.42 Type 2 diabetes mellitus with diabetic polyneuropathy; I48.0 Paroxysmal atrial fibrillation; E03.9 Hypothyroidism, unspecified; I25.10 Atherosclerotic heart disease of native coronary artery without angina pectoris; E78.5 Hyperlipidemia, unspecified; G47.33 Obstructive sleep apnea (adult) (pediatric); E66.9 Obesity, unspecified; Z79.01 Long term (current) use of anticoagulants; Z79.82 Long term (current) use of aspirin; Z95.0 Presence of cardiac pacemaker; Z79.84 Long term (current) use of oral hypoglycemic drugs; R62.7 Adult failure to thrive; Z87.891 Personal history of nicotine dependence; Z82.5 Family history of asthma and other chronic lower respiratory diseases; R77.8 Other specified abnormalities of plasma proteins; Z95.5 Presence of coronary angioplasty implant and graft; Z86.73 Personal history of transient ischemic attack (TIA), and cerebral infarction without residual deficits; N40.0 Benign prostatic hyperplasia without lower urinary tract symptoms; Z95.1 Presence of aortocoronary bypass graft; B34.9 Viral infection, unspecified; R09.02 Hypoxemia; Z68.30 Body mass index [BMI] 30.0-30.9, adult
CPT/HCPCS: 36415; 71045; 71046; 78452; 80048; 80053; 80061; 82962; 83735; 84100; 84145; 84484; 85025; 87449; 87631; 87633; 93005; 93017; 93306; 94640; 99285; A9500; J7030; Q9957; A4216; C8929; J2785

== ENCOUNTER 2023-06-03 06:04 | Emergency (ER) | payer OTHER, MEDICARE, SELFPAY ==
[2023-06-03 06:09] VITALS: BP 134/71; PULSE 70; RESP 16; TEMP 36.4; O2SAT 96; BMI 30.7
--- NOTE | 2023-06-03 06:22 | RAD_ITS ---
INDICATION: cough EXAMINATION/TECHNIQUE: X-RAY - frontal and lateral views of chest COMPARISON: Chest x-ray from 05/15/2023 FINDINGS: LINES/DEVICES: Left AICD in place. LUNGS: Mild left basilar opacity. Mild blunting left costophrenic angle. No detectable pneumothorax. MEDIASTINUM AND CARDIOVASCULAR STRUCTURES: Stable upper limits normal heart size. Status post sternotomy and CABG. Atherosclerotic calcifications along aorta. BONES AND SOFT TISSUES: Skeletal degenerative changes. RAD/Chest PA and Lateral IMPRESSION: Left basilar atelectasis versus infiltrate and small pleural effusion Electronically Signed: Mynor Haider MD at 7:40 EDT ,
--- OUTSIDE RECORDS SUMMARY | 2023-06-03 06:35 | XMS RPT_ITS | CCD ---
Author Name Unknown Address [address] [facility] [address] [place] [address] Organization [facility] Care Team Providers Care Sanitation Director Name Role Phone [facility] EM Unavailable Unavailable [...] Allergy Type Date of Onset Reaction(s) Facility (4 sources) atorvastatin; Translations: [ATORVASTATIN CALCIUM] Drug Allergy 09-07-2017 Myalgia [facility] Work Phone: (4 sources) Lanolin; Translations: [LANOLIN] Drug Allergy 02-15-2008 Itching [facility] Work Phone: (4 sources) rosuvastatin; Translations: [ROSUVASTATIN CALCIUM] Drug Allergy 09-07-2017 Myalgia [facility] Work Phone: Medications Current Medications Medication Drug Class(es) Dates Sig (Normalized) Sig (Original) doxycycline hyclate 100 mg oral tablet (2 sources) Tetracycline-clas s Drug Start: 05-06-2023 End: 05-16-2023 take 1 tablet by mouth twice daily doxycycline (VIBRA-TABS) 100 mg tablet Take 1 tablet by mouth two times a day for 10 days. 20 tablet 0 05/06/2023 05/16/2023 Active Completed/Discontinued Medications Medication Drug Class(es) Dates Sig (Normalized) Sig (Original) acetaminophen 325 mg oral tablet (3 sources) Start: 02-25-2017 take 2 tablets by mouth every six hours as needed acetaminophen (TYLENOL) 325 mg tablet Take 2 tablets by mouth every 6 hours as needed for Pain. 0 02/25/2017 Active Problems Active Problems Problem Classification Problem Date Documented Date Episodic/Chronic Cardiac dysrhythmias (6 sources) Multiple premature ventricular complexes; Translations: [Ventricular premature depolarization] Onset: 03-31-2018 10-25-2013 Chronic Complication of device; implant or graft (2 sources) Atherosclerosis of coronary artery bypass graft(s) without angina pectoris; Translations: [Atherosclerosis of CABG w/o angina pectoris] Onset: 07-03-2017 Chronic Coronary atherosclerosis and other heart disease (6 sources) History of myocardial infarction; Translations: [Old myocardial infarction] Onset: 02-25-2017 02-25-2017 Chronic Diabetes mellitus with complications (3 sources) Insulin treated type 2 diabetes mellitus; Translations: [Uncontrolled type 2 diabetes mellitus with diabetic neuropathy, with long-term current use of insulin] Onset: 06-04-2017 08-06-2017 Chronic Diabetes mellitus without complication (2 sources) Type 2 diabetes mellitus without complications; Translations: [Type 2 diabetes mellitus without complications] Onset: 07-03-2017 Chronic Disorders of lipid metabolism (5 sources) Hyperlipidemia, unspecified; Translations: [Mixed hyperlipidemia] Onset: 02-20-2015 02-20-2015 Chronic Essential hypertension (5 sources) Essential (primary) hypertension; Translations: [Essential hypertension] Onset: 09-02-2015 09-02-2015 Chronic External Injury - Machinery (2 sources) Contact with other specified machinery, initial encounter; Translations: [Contact with other specified machinery, initial encounter] Onset: 07-03-2017 External Injury - Unspecified (2 sources) Civilian activity done for income or pay; Translations: [Civilian activity done for income or pay] Onset: 07-03-2017 Late effects of cerebrovascular disease (3 sources) History of ischemic cerebrovascular accident with residual deficit; Translations: [Unspecified sequelae of cerebral infarction] Onset: 08-02-2017 01-25-2018 Chronic Other inflammatory condition of skin (3 sources) Psoriasis; Translations: [Other psoriasis] Onset: 09-26-2007 10-25-2013 Chronic Other injuries and conditions due to external causes (2 sources) Unspecified injury of head, initial encounter; Translations: [Unspecified injury of head, initial encounter] Onset: 07-03-2017 Other lower respiratory disease (1 source) Cough; Translations: [Acute cough] 05-06-2023 Episodic Other lower respiratory disease (1 source) Hypoxia; Translations: [Hypoxemia] 05-14-2023 Episodic Other lower respiratory disease (1 source) Dyspnea; Translations: [Shortness of breath] 05-14-2023 Episodic Other nervous system disorders (3 sources) Idiopathic peripheral neuropathy; Translations: [Hereditary and idiopathic neuropathy, unspecified] 02-20-2015 Chronic Other nutritional; endocrine; and metabolic disorders (1 source) Weight gain; Translations: [Abnormal weight gain] 04-23-2023 Episodic Other upper respiratory infections (1 source) Chronic sinusitis, unspecified; Translations: [Unspecified sinusitis (chronic)] 05-06-2023 Chronic Pulmonary heart disease (3 sources) Pulmonary hypertension; Translations: [Pulmonary hypertension, unspecified] Onset: 08-16-2018 08-16-2018 Chronic Residual codes; unclassified (3 sources) H/O: Disorder; Translations: [Personal history of other specified conditions] 03-17-2021 Episodic Thyroid disorders (3 sources) Acquired hypothyroidism; Translations: [Hypothyroidism, unspecified] Onset: [...] Onset: 07-03-2017 Episodic Deficiency and other anemia (3 sources) Iron deficiency anemia; Translations: [Iron deficiency [...] encounter] Onset: 07-03-2017 Episodic Other circulatory disease (3 sources) History of cerebrovascular accident; Translations: [Personal history of transient ischemic attack (TIA), and cerebral infarction without residual deficits] Onset: 02-09-2017 04-11-2018 Episodic Other connective tissue disease (3 sources) Plantar fasciitis of left foot; Translations: [Plantar fascial fibromatosis] Onset: 09-08-2016 08-06-2017 Episodic Other inflammatory condition of skin (3 sources) Seborrheic dermatitis; Translations: [Seborrheic dermatitis, unspecified] Onset: 09-26-2007 10-25-2013 Episodic Other lower respiratory disease (3 sources) Multiple nodules of lung; Translations: [Other nonspecific abnormal finding of lung field] Onset: 09-30-2016 02-13-2018 Episodic Other non-traumatic joint disorders (2 sources) Pain in left shoulder; Translations: [Pain in left shoulder] Onset: 07-03-2017 Episodic Other screening for suspected conditions (not mental disorders or infectious disease) (6 sources) Patient encounter status; Translations: [Encounter for screening for malignant neoplasm of colon] Onset: 06-20-2014 06-20-2014 Episodic Other skin disorders (3 sources) Acne; Translations: [Other acne] Onset: 09-26-2007 10-25-2013 Episodic Other skin disorders (3 sources) Disorder of sebaceous gland; Translations: [Other specified follicular disorders] Onset: 09-26-2007 10-25-2013 Episodic Other skin disorders (3 sources) Disorder of nail; Translations: [Other nail disorders] Onset: 09-26-2007 10-25-2013 Episodic Other skin disorders (3 sources) Seborrheic keratosis; Translations: [Other seborrheic keratosis] Onset: 12-16-2007 10-25-2013 Episodic Screening and history of mental health and substance abuse codes (3 sources) Ex-smoker; Translations: [Personal history of nicotine dependence] Onset: 09-08-2016 09-08-2016 Episodic Skin and subcutaneous tissue infections (3 sources) Pyoderma; Translations: [Pyoderma] Onset: 09-26-2007 10-25-2013 Episodic Superficial injury; contusion (4 sources) Abrasion of left wrist, initial encounter; Translations: [Abrasion of left shoulder, initial encounter] Onset: 07-03-2017 Episodic Results Test Name Value Interpretation Reference Range Facil ity Vital Signs Date Time Vital Sign Value Performing Clinician Colt hansen 05-14-2023 16:37-0500 Body temperature 99.1 [degF] Krislyn Aberegg PA Work Phone: [facility] 05-14-2023 16:37-0500 Body weight 107.05 kg Krislyn Aberegg PA Work Phone: [facility] 05-14-2023 16:37-0500 Diastolic blood pressure 87 mm[Hg] Krislyn Aberegg PA Work Phone: [facility] 05-14-2023 16:37-0500 Heart rate 113 /min Krislyn Aberegg PA Work Phone: [facility] 05-14-2023 16:37-0500 Respiratory rate 24 /min Krislyn Aberegg PA Work Phone: [facility] 05-14-2023 16:37-0500 SaO2% (BldA) [Mass fraction] 93 % Krislyn Aberegg PA Work Phone: [facility] 05-14-2023 16:37-0500 Systolic blood pressure 154 mm[Hg] Krislyn Aberegg PA Work Phone: [facility] 05-06-2023 13:56-0500 Body temperature 97 [degF] Sarita Phipps PRODUCT SAFETY TESTER.CUTTING PRESSMAN Work Phone: [facility] 05-06-2023 13:56-0500 Body weight 107.41 kg Sarita Phipps PRODUCT SAFETY TESTER.C[employer]TING PRESSMAN Work Phone: [facility] 05-06-2023 13:56-0500 Diastolic blood pressure 52 mm[Hg] Sarita Phipps PRODUCT SAFETY TESTER.CUTTING PRESSMAN Work Phone: [facility] 05-06-2023 13:56-0500 Heart rate 54 /min Sarita Phipps PRODUCT SAFETY TESTER.[employer]TING PR[employer] Work Phone: [facility] 05-06-2023 13:56-0500 Respiratory rate 18 /min Sarita Phipps PRODUCT SAFETY TESTER.CUTTING PRESSMAN Work Phone: [facility] 05-06-2023 13:56-0500 SaO2% (BldA) [Mass fraction] 96 % Sarita Phipps PRODUCT SAFETY TESTER.CUTTING PRESSMAN Work Phone: [facility] 05-06-2023 13:56-0500 Systolic blood pressure 100 mm[Hg] Sarita Phipps PRODUCT SAFETY TESTER.CUTTING PRESSMAN Work Phone: [facility] 04-23-2023 07:29-0500 Body temperature 97.59 [degF] Lizeth Hernandez PRODUCT SAFETY TESTER.C[employer]TING PRESSMAN Work Phone: [facility] 04-23-2023 07:29-0500 Body weight 111.13 kg Lizeth Hernandez APRN.CUTTING PRESSMAN Work Phone: [facility] 04-23-2023 07:29-0500 Diastolic blood pressure 72 mm[Hg] Lizeth Hernandez APRN.CUTTING PRESSMAN Work Phone: [facility] 04-23-2023 07:29-0500 Heart rate 111 /min Lizeth Hernandez APRN.CUTTING PRESSMAN Work Phone: [facility] 04-23-2023 07:29-0500 Respiratory rate 16 /min Lizeth Hernandez APRN.CUTTING PRESSMAN Work Phone: [facility] 04-23-2023 07:29-0500 SaO2% (BldA) [Mass fraction] 96 % Lizeth Hernandez PRODUCT SAFETY TESTER.C[employer]TING PR[employer] Work Phone: [facility] 04-23-2023 07:29-0500 Systolic blood pressure 122 mm[Hg] Lizeth Hernandez PRODUCT SAFETY TESTER.C[employer]TING PR[employer] Work Phone: [facility] Encounters Encounter Date Encounter Type Care Provider Facility Start: 05-14-2023 End: 05-14-2023 Patient encounter procedure Kunal ROBERTO Work Phone: [facility] Procedures Date Procedure Procedure Detail Performing Clinician Start: 05-06-2023 INFLUENZA A&B MOLECU LAR (POC) Saritaivet Phipps APRN.CUTTING PRESSMAN Work Phone: Start: 02-25-2017 History of coronary artery bypass grafting S/P CABG x 3 Lizeth Hernandez PRODUCT SAFETY TESTER.C[employer]TING PR[employer] Work Phone: Plan of Treatment Date Care Activity Detail Author Start: 07-04-2027 Urine microalbumin profile DTa P,Tdap,Td Vaccine (3 - Td or Tdap) [facility] Start: 05-06-2024 BP Controlled (<130/80) BP Controlle d (<130/80) [facility] Start: 04-23-2024 BP Controlled (<130/80) BP Controlle d (<130/80) [facility] Start: 03-22-2023 Advance Directive Discussion Advance Directive Discussion [facility] Start: 03-22-2023 Depression Assessment Depression Ass essment [facility] Start: 06-01-2019 Annual PCP Team Retail Clerk lee Disease Visit Annual PCP Team Chronic Disease Visit [facility] Start: 06-01-2019 Diabetic foot examination Diabetic F oot Exam [facility] Start: 05-22-2019 Hepatitis B screening Urine Al bumin:Creatinine Ratio [facility] Start: 05-22-2019 Hepatitis B surface antibody level LDL Cholesterol [facility] Start: 03-01-2019 Screening for malign ant neoplasm of colon [facility] Start: 11-21-2018 Hemoglobin A1c measurement HbA1C [facility] Start: 08-31-2018 Glaucoma screening Dilated Retinal E xam [facility] Start: 2010 RSV Vaccine (1 - 1-d ose 60+ series) RSV Vaccine (1 - 1-dose 60+ series) [facility] Start: 2000 Shingrix Vaccine (1 of 2) Brink grix Vaccine (1 of 2) [facility] Start: 08-30-1995 Screening for malign ant neoplasm of colon [facility] Start: 1968 BP Controlled (<130/80) BP Controlle d (<130/80) [facility] Start: 02-28-1951 Covid-19 Vaccine (#1) Covid-19 Vacci ne (#1) [facility] Start: 1950 Abdominal aortic ane urysm screening Abdominal Aortic Aneurysm Screening [facility] Immunizations Immunization Date Immunization Notes Care Provider Christy titus 05-31-2018 pneumococcal polysaccharide vaccine, 23 valent Lizeth Hernandez PRODUCT SAFETY TESTER.[facility] Work Phone: [facility] 07-03-2017 tetanus toxoid, redu anabel diphtheria toxoid, and acellular pertussis vaccine, adsorbed Lizeth James PRODUCT SAFETY TESTER.CUTTING PRESSMAN Work Phone: [facility] 06-20-2014 pneumococcal conjuga te vaccine, 13 valent Lizeth Irving PRODUCT SAFETY TESTER.[facility] Work Phone: [facility] Work Phone: 04-26-2013 pneumococcal polysaccharide vaccine, 23 valent Lizeth Hernandez PRODUCT SAFETY TESTER.[facility] Work Phone: [facility] Work Phone: 02-15-2008 hepatitis B vaccine, adult dosage Lizeth James PRODUCT SAFETY TESTER.[facility] Work Phone: [facility] Work Phone: 12-14-2007 hepatitis A vaccine, unspecified formulation Lizeth Hernandez PRODUCT SAFETY TESTER.[facility] Work Phone: [facility] Work Phone: 12-14-2007 hepatitis B vaccine, adult dosage Lizeth James PRODUCT SAFETY TESTER.[facility] Work Phone: [facility] Work Phone: 05-24-2007 hepatitis A vaccine, unspecified formulation Lizeth Hernandez PRODUCT SAFETY TESTER.[employer] Work Phone: [facility] Work Phone: 05-24-2007 hepatitis B vaccine, adult dosage Lizeth Irving PRODUCT SAFETY TESTER.[employer] Work Phone: [facility] Work Phone: 12-15-2006 pneumococcal polysaccharide vaccine, 23 valent Lizeth James PRODUCT SAFETY TESTER.[employer] Work Phone: [facility] Work Phone: 12-15-2006 tetanus toxoid, redu anabel diphtheria toxoid, and acellular pertussis vaccine, adsorbed Lizeth Irving PRODUCT SAFETY TESTER.[facility] Work Phone: [facility] Work Phone: 01-22-2006 influenza virus vacc ine, unspecified formulation Lizeth Hernandez APRN.[facility] Work Phone: [facility] Work Phone: Payers Date Payer Category Payer Unknown [id number] 2023 Unknown [id number] 2018 Unknown [id number] 1950 Unknown [id number] 1950 Unknown [id number] Worker's Compensation Social History Date Type Detail Facility Start: 04-23-2023 [facility] History of tobacco use Current smoker [facility] Start: 04-23-2023 Tobacco use and exposure Forme r smokeless tobacco user [facility] History of tobacco use Snuff User [facility] History of tobacco use Chews Tobacco [facility] Start: 04-23-2023 End: 05-14-2023 Alcohol intake Current non-drinker of alcohol (finding) [facility] Start: 02-27-2020 End: 04-23-2023 History of Social function [facility] Start: 02-27-2020 End: 04-23-2023 Tobacco use panel [facility] Adult Depression Scr eening Assessment 0 [facility] Start: 1950 Sex Assigned At Not on file [facility] Medical Equipment Procedure Code Equipment Code Equipment Origin al Text Equipment Identifier Dates Start: 08-03-2018 Clinical Notes 09-02-2015 to 05-14-2023 Kunal Sampson, PA - 05/14/2023 4:57 PM Sarita Santos APRN.CUTTING PRESSMAN - 05/06/2023 2:15 PM Lizeth Go APRN.[facility] - 04/23/2023 7:37 AM EST Note Date & Type Note Facility 05-14-2023 History of Present illness Narrative This note was created using [email or web address]. Subjective Juan Diego Roldan is a 72 year old male. HPI 72-year-old male presents for cough, shortness of breath, fatigue. Patient states that he has had a cough for few weeks now. He was seen here a week ago and had a chest x-ray which was clear. He states that he was given doxycycline. He states that has not really been helping. He still has cough. He is short of breath and feels fatigued and weak. He states he tried to go to work today and was unable to due to not feeling well. He has a low-grade fever here. He denies any chest pain. States he has bodyaches, headache. No history of COPD or asthma. Does not use inhalers at home. No other complaint. PAST MEDICAL HISTORY Diagnosis Date ACNE NEC 09/26/2007 Acquired hypothyroidism 02/20/2015 Coronary artery disease due to lipid rich plaque 02/25/[address] Milton DISEASES OF NAIL NEC 09/26/2007 Essential hypertension with goal blood pressure less than 130/85 09/02/2015 H/O balance disorder chronic due to frequent ear infections in the past. History of TX (myocardial infarction) 02/25/201701/2017 Idiopathic peripheral neuropathy Ischemic cerebrovascular accident (CVA) ([facility]) 08/02/201707/2017: left temporal Mixed hyperlipidemia 02/20/2015 Multiple lung nodules 09/30/[address] 09/2016, repeat CT 03/2017 Other psoriasis 09/26/2007 PRURITIC DISORDER NOS 09/26/2007 PVC (premature ventricular contraction) PYODERMA NOS 09/26/2007 Right-sided cerebrovascular accident (CVA) ([facility]) 02/09/2017 MRI at [place] 01/2017 showed right cortical stroke. S/P CABG x 3 02/25/2017 01/22/2017 Following [facility]. SEBORRHEIC DERMATITIS NOS 09/26/2007 SEBORRHEIC KERATOSIS NOS 12/16/2007 Shoulder pain 05/05/2013 SOLAR LENGINES////DYSCHROMIA OTHER 12/16/2007 Uncontrolled type 2 diabetes mellitus with diabetic neuropathy, with long-term current use of insulin 06/04/2017 PAST SURGICAL HISTORY Procedure Laterality Date 2D ECHO (EXEP) 01/2017 EF=50-55%, with nl function 2D ECHO (EXEP) 08/02/2017 EF=53%, mild infante dysf, mild TX and TI PAST SURGICAL HISTORY OF 01/22/2017 CABG x3 ALLERGIES Crestor [Rosuvastatin Calcium], Lanolin, and Lipitor [Atorvastatin Calcium] MEDICATIONS doxycycline (VIBRA-TABS) 100 mg tablet Take 1 tablet by mouth two times a day for 10 days. empagliflozin (JARDIANCE) 25 mg tablet Take 0.5 tablets by mouth once daily. blood sugar diagnostic (FREESTYLE LITE STRIPS) test strip Test blood sugar 3-4 times daily Dx E11.40 on insulin levothyroxine (SYNTHROID) 125 mcg tablet TAKE 1 TABLET BY MOUTH ONCE DAILY. TAKE ON EMPTY STOMACH. FOR THYROID. metFORMIN (GLUCOPHAGE) 500 mg tablet Take 2 tablets by mouth twice daily. insulin 75/25 lispro protamine/lispro units/mL (HUMALOG MIX 75-25 KWIKPEN) 100 unit/mL (75-25) inpn 34 units in AM and 30 units in the PM insulin needles, DISPOSABLE, (PEN NEEDLE) 31 gauge x 5/16 ndle Use with 75/25 twice daily metoprolol tartrate, short acting, (LOPRESSOR) 25 mg [...] FUM (MULTI VITAMIN ORAL) Take by mouth. furosemide (LASIX) 40 mg tablet Take 1 tablet by mouth twice a day for 30 days. If increased leg swelling or weight gain of 5 pounds in 1 week occurs, take 2 tablets at 10 insulin aspart prot/insuln asp (NOVOLOG MIX 70-30 SUBCUTANEOUS) Inject subcutaneously. clopidogrel (PLAVIX) 75 mg tablet Take 1 tablet by mouth once daily. (Patient not taking: Reported on 04/23/2023) ezetimibe (ZETIA) 10 mg tablet Take 1 tablet by mouth once daily. Per cardio (Patient not taking: Reported on 05/14/2023) losartan (COZAAR) 25 mg tablet Take 1 tablet by mouth once daily. Per cardio meclizine (ANTIVERT) 12.5 mg tab 3 TIMES DAILY NEEDED PRN For Dizziness (Patient not taking: Reported on 04/23/2023) FAMILY HISTORY Problem Relation Age of Onset other (toxic shock) Mother None Father Thyroid Sister Social History Tobacco Use Smoking status: Former Smokeless tobacco: Former Types: Snuff, Chew Substance Use Topics Alcohol use: No Drug use: No Review of Systems Constitutional: Positive for chills, fatigue and fever. HENT: Positive for congestion. Negative for sore throat. Respiratory: Positive for cough and shortness of breath. Gastrointestinal: Negative for diarrhea and vomiting. Neurological: Positive for weakness. Objective BP 154/87 Pulse 113 Temp 37.3 C (99.1 F) Resp 24 Wt 107 kg (236 lb) SpO2 93% BMI 31.14 kg/m Physical Exam Vitals and nursing note reviewed. Constitutional: General: He is not in acute distress. Appearance: Normal appearance. He is ill-appearing. He is not toxic-appearing. HENT: Nose: Nose normal. Mouth/Throat: Mouth: Mucous membranes are moist. Eyes: Conjunctiva/sclera: Conjunctivae normal. Cardiovascular: Rate and Rhythm: Regular rhythm. Tachycardia present. Pulmonary: Effort: Pulmonary effort is normal. Breath sounds: Normal breath sounds. No wheezing, rhonchi or rales. Skin: General: Skin is warm and dry. Coloration: Skin is pale. Neurological: Mental Status: He is alert. Assessment and Plan ASSESSMENT/PLAN: 1. Hypoxia - ICD9: 799.02, ICD10: R09.02 (primary diagnosis) -Patient's pulse ox is 90 to 91% on room air. He is tachycardic. He had a chest x-ray 1 week ago that was normal. He appears pale and ill. -At this time due to hypoxia and appearance of patient, I recommended evaluation in the emergency room. He declines EMS. His friend that is with him will take him now. 2. SOB (shortness of breath) - ICD9: 786.05, ICD10: R06.02 -See above. Diagnosis and treatment plan were discussed and questions were answered to the patient's satisfaction. Pt acknowledged understanding of concepts and follow up plan. Specific signs and symptoms that would indicate the need for higher level of care were discussed in detail warranting prompt ER evaluation. FELISA Reyna documented in this encounter [facility] 05-06-2023 Note HNO ID: [id number] Author: ANAMIKA JIMENEZ RT(R) Service: ? Author Type: Counter Pocket Sewer Type: Progress Notes Filed: 05/06/2023 14:33 Note Text: Radiology Service Progress Note PATIENT NAME: Juan Diego Roldan DATE OF SERVICE: May 06, 2023 [...] PATIENT PRESENTS WITH AN IMPLANTABLE OR ATTACHED MANAGER KNOWLEDGE: No RADIOLOGY DEPARTMENT: General X-ray: Exam(s) Completed: Chest X-Ray PERIPHERAL IV DATA: Not applicable SIGNED BY: RT Ashley(R) May 06, 2023 2:33 PM [facility] 05-06-2023 Note HNO ID: [id number] Author: SARITA PHIPPS APRN.CUTTING PRESSMAN Service: ? Author Type: Nurse Practitioner Type: Progress Notes Filed: 05/06/2023 16:34 Note Text: This note was created using Note[employer]. Subjective Juan Diego Roldan is a 72 year old male. 72 year old male with PMH of DM, CKD, CHF, TX, CABG, and former smoker presents today with [...] ear infections in the past. History of TX (myocardial infarction) 02/25/201701/2017 Idiopathic peripheral neuropathy Ischemic cerebrovascular accident (CVA) ([facility]) 08/02/201707/2017: left temporal Mixed hyperlipidemia 02/20/2015 Multiple lung nodules 09/30/[address] 09/2016, repeat CT 03/2017 Other psoriasis 09/26/2007 PRURITIC DISORDER NOS 09/26/2007 PVC (premature ventricular contraction) PYODERMA NOS 09/26/2007 Right-sided cerebrovascular accident (CVA) ([facility]) 02/09/2017 MRI at [place] 01/2017 showed right cortical stroke. S/P CABG x 3 02/25/2017 01/22/2017 Following [facility]. SEBORRHEIC DERMATITIS NOS 09/26/2007 SEBORRHEIC KERATOSIS NOS 12/16/2007 Shoulder pain 05/05/2013 [facility]GIN[facility]////DYSCHROMIA OTHER 12/16/2007 Uncontrolled type 2 diabetes mellitus with diabetic neuropathy, with long-term current use of insulin 06/04/2017 PAST SURGICAL HISTORY Procedure Laterality Date 2D ECHO (EXEP) 01/2017 EF=50-55%, with nl function 2D ECHO (EXEP) 08/02/2017 EF=53%, mild infante dysf, mild TX and TI PAST SURGICAL HISTORY OF 01/22/2017 [...] Problem Relation A (more content not included)... [facility] 05-06-2023 History of Present illness Narrative This note was created using NoteWriter. Subjective Juan Diego Roldan is a 72 year old male. 72 year old male with PMH of DM, CKD, CHF, TX, CABG, and former smoker presents today with [...] ear infections in the past. History of TX (myocardial infarction) 02/25/201701/2017 Idiopathic peripheral neuropathy Ischemic cerebrovascular accident (CVA) ([facility]) 08/02/201707/2017: left temporal Mixed hyperlipidemia 02/20/2015 Multiple lung nodules 09/30/[address] 09/2016, repeat CT 03/2017 Other psoriasis 09/26/2007 PRURITIC DISORDER NOS 09/26/2007 PVC (premature ventricular contraction) PYODERMA NOS 09/26/2007 Right-sided cerebrovascular accident (CVA) ([facility]) 02/09/2017 MRI at [place] 01/2017 showed right cortical stroke. S/P CABG x 3 02/25/2017 01/22/2017 Following [facility]. SEBORRHEIC DERMATITIS NOS 09/26/2007 SEBORRHEIC KERATOSIS NOS 12/16/2007 Shoulder pain 05/05/2013 SOL[facility]ENGINES////DYSCHROMIA OTHER 12/16/2007 Uncontrolled type 2 diabetes mellitus with diabetic neuropathy, with long-term current use of insulin 06/04/2017 PAST SURGICAL HISTORY Procedure Laterality Date 2D ECHO (EXEP) 01/2017 EF=50-55%, with nl function 2D ECHO (EXEP) 08/02/2017 EF=53%, mild infante dysf, mild TX and TI PAST SURGICAL HISTORY OF 01/22/2017 [...] tenderness or frontal sinus tenderness. Mouth/Throat: Lips: [place]. No lesions. Mouth: Mucous membranes are moist. [...] do not improve Shira Torres TEACHING PROVIDER (Physician/PA/PRODUCT SAFETY TESTER) NOTE OF PERSONAL INVOLVEMENT IN CARE: I have personally seen and examined the patient and performed the medical decision-making components. I have reviewed the Advanced Practice Registered Nurse (PRODUCT SAFETY TESTER) Student's documentation and verified the findings in the note as written. Any additions or changes are noted in bold/italics. Signature: Sarita Phipps Date: 05/06/2023 Time: 4:34 PM documented in this encounter [facility] 04-23-2023 Note HNO ID: [id number] Author: LIZETH HERNANDEZ APRN.CUTTING PRESSMAN Service: ? Author Type: Nurse Practitioner Type: [...] Patient was okay with this care plan. [facility] 04-23-2023 History of Present illness Narrative Patient came in with complaints of chest congestion cough and shortness of breath. Patient did recently get off her water pill. Patient says that he has gained 10 pounds in 3 days. At this time patient is being referred to the emergency room for full evaluation. Patient was okay with this care plan. documented in this encounter [facility] documented as of this encounter (statuses as of 04/23/2023) [facility] History of Past illness Narrative* Problem Noted Date Diagnosed Date Resolved Date Uncontrolled type 2 diabetes mellitus without complication, without long-term current use of insulin 09/02/2015 06/04/2017 Dyslipidemia 10/25/2013 02/19/2014 documented as of this encounter (statuses as of 05/06/2023) [facility] History of Past illness Narrative* Problem Noted Date Diagnosed Date Resolved Date Uncontrolled type 2 diabetes mellitus without complication, without long-term current use of insulin 09/02/2015 06/04/2017 Dyslipidemia 10/25/2013 02/19/2014 documented as of this encounter (statuses as of 05/14/2023) [facility] Weight gain- Primary Abnormal weight gain [facility] Diagnosis Acute cough- Primary Rhinosinusitis Unspecified sinusitis (chronic) [facility] Hypoxia- Primary Hypoxemia SOB (shortness of breath) Shortness of breath documented in this encounter [facility] Summary Purpose Family History No [...] DATE CREATED AUTHOR AUTHOR'S ORGANIZ ATION 11/01/2017 [facility] [employer] DATE CREATED AUTHOR AUTHOR'S ORGANIZ ATION 04/20/2018 [facility] ([place]) DATE CREATED AUTHOR AUTHOR'S ORGANIZ ATION 05/08/2023 [facility] Source Comments (unrecognize d section and content) In the event this informatio n is protected by the Federal Confidentiality of Alcohol and Drug Abuse Patient Records regulations: The Federal rules restrict any use of the information to criminally investigate or prosecute any alcohol or drug abuse patient.[facility] the event this information is protected by the Federal Confidentiality of Alcohol and Drug Abuse Patient Records regulations: The Federal rules restrict any use of the information to criminally investigate or prosecute any alcohol or drug abuse patient.[facility] the event this information is protected by the Federal Confidentiality of Alcohol and Drug Abuse Patient Records regulations: The Federal rules restrict any use of the information to criminally investigate or prosecute any alcohol or drug abuse patient.[facility] Reason for Visit (unrecogniz ed section and content) Reason Comments Head Congestion Bodyaches, congestio n, cough, IGNACIO x1 week Reason Comments Shortness of Breath Body aches, fatigue, cough, congestion headache x couple weeks FOR RECORDS PERTAINING TO PATIENTS WHO ARE [...] BE BASED ON THE PRIMARY CLINICAL RECORDS. [facility]. provides no warranty or guarantee of the accuracy or completeness of information in this document.
[2023-06-03] MEDS: 0.9% Normal Saline (1000mL) 1,000 ML 999 ML IV (06:52)
[2023-06-03 06:55] VITALS: BP 123/63
[2023-06-03 07:01] VITALS: BP 120/72; PULSE 72; RESP 16; O2SAT 95
[2023-06-03 07:01] LABS: Absolute Neutrophil Count 6.9 X10^3/uL (2.0-7.7); Basophil# 0.08 X10^3/uL; Basophil% 0.8 % (0-1); Eosinophil# 0.25 X10^3/uL; Eosinophils% 2.6 % (0-5); Hematocrit 46.2 % (40-54); Hemoglobin 14.8 g/dL (13.0-16.5); Lymphocyte % 16.9 % (19-41); Mean Corpuscular Hgb 28.5 pg (27.0-32.0); Mean Platelet Vol. 11.7 fl (6.2-12.0); Monocyte# 0.59 X10^3/uL; Monocyte% 6.3 % (0-10); NRBC Flagged by Analyzer 0 % (0-5); Neutrophil # 6.87 X10^3/uL (2.7-7.7); Neutrophil % 72.9 % (47-70); Platelet Count 188 K/mm3 (150-450); RBC Distribution Width CV 14.9 % (11.6-14.6); RBC Distribution Width SD 48.8 fl (35.1-43.9); Red Blood Count 5.19 M/mm3 (4.6-6.2); White Blood Count 9.4 K/mm3 (4.4-11.0)
[2023-06-03 07:25] LABS: AST(SGOT) 20 U/L (15-37); Alanine Aminotransfer ALT/SGPT 21 U/L (16-61); Alkaline Phosphatase 65 U/L (45-117); Anion Gap 8 (5-15); BUN 29 mg/dL (7-18); BUN/Creat Ratio 19.7 RATIO (10-20); Bilirubin, Direct 0.29 mg/dL (0.00-0.30); Calcium,Total 8.9 mg/dL (8.5-10.1); Chloride 104 mmol/L (98-107); Creatinine, Serum 1.47 mg/dL (0.70-1.30); EST Glomerular Filtration Rate 50 mL/min (>60); Est Glom Filt Rate - Afr Amer 60 mL/min (>60); Estimated Creatinine Clearance 57.96 ml/min; Globulin 4.7 g/dL (2.2-4.2); Glucose 155 mg/dL (74-106); Lipase 22 U/L (13-75); Magnesium 1.8 mg/dL (1.6-2.6); Potassium 3.6 mmol/L (3.5-5.1); Protein, Total 7.7 g/dL (6.4-8.2); Sodium Level 141 mmol/L (136-145); Thyroid Stim Hormone (TSH) 0.08 uIU/mL (0.358-3.74)
--- NOTE | 2023-06-03 07:57 | EX.ED.DYSGE1 ---
HPI History of Present Illness Chief Complaint: General Illness Informant: patient Narrative Narrative: Patient is a 72-year-old male with past medical history of hypertension hyperlipidemia diabetes and chronic kidney disease. He states he went to bed feeling normal and awoke just feeling crummy . He states he feels fatigued but he cannot define his symptoms other than just feeling bad . He states there is mild congestion and cough but he denies any shortness of breath nausea vomiting diarrhea or dysuria. He states he had to be admitted roughly 1 to 2 weeks ago for similar symptoms and with that concern he comes in for evaluation [facility] Medical History (HFpEF) heart failure with preserved ejection fraction Aftercare following surgery of the circulatory system Atherosclerosis of [place] coronary artery of [place] heart without angina pectoris Atrial flutter Atrial flutter by electrocardiogram BPH (benign prostatic hyperplasia) CAD (coronary artery disease) CKD (chronic kidney disease) CVA (cerebral vascular accident) Diabetes mellitus Dizziness Essential (primary) hypertension History of DVT (deep vein thrombosis) History of non-ST elevation myocardial infarction (NSTEMI) Hyperlipidemia Hypothyroidism Ischemic stroke Left leg pain 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 atrioventricular block NSVT (nonsustained ventricular tachycardia) Obesity Open wound of scalp WILLIAN treated with BiPAP PAD (peripheral artery disease) Palpitations Peripheral neuropathy Presence of cardiac pacemaker Stroke Thrombosis of left common femoral artery Thyroid disorder Home Medications metformin 500 mg tablet 1,000 mg PO QHS DM 03/19/17 [History Last Taken 10/27/22 18:30] nitroglycerin 0.4 mg sublingual tablet 0.4 mg sublingual Q5-15M PRN chest pain #90 tabs 05/25/18 [Rx Last Taken Unknown] aspirin 81 mg chewable tablet 81 mg PO DAILY@0800 HEALTH MAINTENANCE 06/16/22 [History Last Taken 10/27/22 08:00] ezetimibe 10 mg tablet (Zetia) 10 mg PO DAILY DM 06/16/22 [History Last Taken 10/27/22 08:00] insulin human U-100 NPH-regulr 70-30 mix 100 unit/mL subcutaneous susp (Novolin 70/30 U-100 Insulin) 32 unit subcut QHS DM 06/16/22 [History Last Taken 06/15/22] insulin human U-100 NPH-regulr 70-30 mix 100 unit/mL subcutaneous susp (Novolin 70/30 U-100 Insulin) 40 unit subcut DAILY DM 06/16/22 [History Last Taken 06/16/22] empagliflozin 25 mg tablet 12.5 mg PO DAILY diabetes 11/24/22 [History Last Taken Unknown] isosorbide mononitrate 60 mg tablet,extended release 24 hr 30 mg PO DAILY HEART 04/01/23 [History Last Taken Unknown] metoprolol tartrate 25 mg tablet 12.5 mg PO BID HEART/BLOOD PRESSURE 04/01/23 [History Last Taken Unknown] cholecalciferol (vitamin D3) 25 mcg (1,000 unit) chewable tablet (VitaJoy Daily D) 25 mcg PO DAILY 05/14/23 [History Last Taken Unknown] rivaroxaban 20 mg tablet (Xarelto) 20 mg PO QHS blood thinner 05/14/23 [History Last Taken Unknown] tamsulosin 0.4 mg capsule 0.4 mg PO QHS prostate 05/14/23 [History Last Taken Unknown] dextromethorphan-guaifenesin 30 mg-600 mg tablet extended [id number] hr (Mucinex DM) 2 tab PO BID 7 days #28 tabs 05/17/23 [Rx Last Taken Unknown] losartan 100 mg tablet 50 mg (1/2 x 100 mg) PO DAILY 30 days #0 tabs 05/17/23 [Rx Last Taken Unknown] doxycycline hyclate 100 mg capsule 100 mg PO BID 7 days #14 caps 06/03/23 [Rx Last Taken Unknown] furosemide 40 mg tablet (Lasix) 40 mg PO DAILY fluid retention 06/03/23 [History Last Taken Unknown] levothyroxine 200 mcg tablet (Euthyrox) 200 mcg PO DAILY 06/03/23 [History Last Taken Unknown] Allergy/AdvReac Type Severity Reaction Status Date / Time atorvastatin [From Lipitor] AdvReac Severe mylagia Verified 06/03/23 06:05 lanolin AdvReac Severe Rash Verified 06/03/23 06:05 Family History Sister CAD (coronary artery disease) Diabetes Brother CAD (coronary artery disease) Father Asthma Mother Cancer lung Surgical History History of coronary artery bypass surgery (~01/21/17) Hx of cardiac catheterization (~01/19/17) S/P coronary artery stent placement (~04/05/18) Social History household members: spouse Smoking Status: Former smoker how long ago did patient quit smokin alcohol intake: never substance use type: does not use caffeine: Yes Type: coffee Number of servings: 3 what type of physical activity do you participate in: none seatbelt use: always do you feel safe at home: Yes ROS ROS ED Constitutional Constitutional ED: Denies chills or fever(s) Eyes Eyes: Denies change in vision ENT ENT ED: Reports rhinorrhea; Denies sore throat Cardiovascular Cardiovascular: Denies chest pain Respiratory/Chest Respiratory/Chest: Reports cough; Denies dyspnea Gastrointestinal Gastrointestinal: Denies abdominal pain, diarrhea, nausea or vomiting Genitourinary Genitourinary ED: Denies dysuria or hematuria Musculoskeletal Musculoskeletal: Denies myalgias Integumentary Denies rash Neurologic Neurologic: Denies headache(s) Hematologic/Lymphatic Hematologic/Lymphatic: Reports easy bleeding and easy bruising EXAM Physical Exam Const Vital Signs: 06/03/23 06:09 06/03/23 06:11 06/03/23 06:55 Temperature 97.6 F L Temperature Source Temporal Pulse Rate 70 Respiratory Rate 16 Respiratory Effort Normal Respiratory Pattern Normal Blood Pressure 134/71 H 123/63 H Blood Pressure Mean 92 83 Pulse Ox 96 06/03/23 07:01 06/03/23 08:49 Temperature 97.9 F Temperature Source Pulse Rate 72 70 Respiratory Rate 16 18 Respiratory Effort Respiratory Pattern Blood Pressure 120/72 124/66 H Blood Pressure Mean 88 85 Pulse Ox 95 96 Positive well nourished and well developed General Appearance ED: well developed; Negative for pallor HEENT HEENT Narrative: [place]bl[place] is noted in the posterior pharynx consistent with sinus drainage without airway edema or compromise No secondary changes in the posterior pharynx to suggest infection Eyes PERRL and EOMs intact bilaterally General Eye ED: Negative for scleral icterus Neck supple and no JVD Neck Narrative: No nuchal rigidity or meningeal signs Chest Wall palpation of chest normal Resp normal respiratory effort and clear to auscultation bilaterally Resp Narrative: No nasal flaring retractions tachypnea or accessory muscle use Cardio regular rate and regular rhythm Rate: other Other Details: Radial and carotid pulses are equal and symmetric GI normal to inspection, nondistended, normoactive bowel sounds, non-tender, non-distended and no masses GI Narrative: No voluntary guarding or rigidity or pulsatile mass Auscultation: normoactive bowel sounds Palpation: soft Extremity Extremity Narrative: Trace pitting edema to the bilateral lower extremities that is equal and symmetric with negative Homans' sign bilaterally Neuro oriented x3, CN's II-XII intact bilaterally and no sensory deficits noted Neuro Narrative: Cranial nerves II through XII are grossly intact there are no focal neurologic deficit No pronator drift no dysmetria no truncal ataxia NIH stroke scale score of 0 Sensorium / Orientation: alert Motor Exam: strength 5/5 throughout Psych mental status grossly normal Skin no rashes or lesions noted General Skin Exam: Negative for jaundice or pallor MDM MDM MDM Narrative Medical decision making narrative: Patient presented to the ER with stable vitals and in no acute respiratory distress. He reported that he awoke this morning feeling unwell which she cannot describe any further and came into the hospital as he was recently admitted for similar event. His symptoms only been present for a few hours but differential diagnosis could be due to viral infection such as COVID versus influenza versus RSV versus acute on chronic kidney injury versus pneumonia versus adverse diabetic effect versus electrolyte abnormality. Secondary to his viral swabs with chest x-ray and basic labs were obtained. Labs showed chronic kidney disease with patient's creatinine at baseline and otherwise no clinically significant findings. Chest x-ray question atelectasis versus pneumonia. Patient is only had mild cough he is not have a white count or fever and therefore I feel this is most likely atelectasis. However as patient's symptoms only been present for a short timeframe this could be early developing pneumonia and therefore I will place him on doxycycline to cover for this. However at this time he is not hypoxic he is not in respiratory distress he is not requiring supplemental oxygen and vitals are stable and so there is no need for admission and he is otherwise safe for discharge History & Record Review Discussion w/independent historian: Patient Lab Data Attestation: I reviewed the patient's lab results. Labs: Laboratory Results - last 24 hr 06/03/23 06:50 WBC 9.4 RBC 5.19 Hgb 14.8 Hct 46.2 MCV 89.0 MCH 28.5 MCHC 32.0 RDW Std Deviation 48.8 H RDW Coeff of [place] 14.9 H Plt Count 188 MPV 11.7 Immature Gran % (Auto) 0.500 Neut % (Auto) 72.9 H Lymph % (Auto) 16.9 L [place] % (Auto) 6.3 Eos % (Auto) 2.6 Baso % (Auto) 0.8 Absolute Neuts (auto) 6.9 Absolute Lymphs (auto) 1.60 Nucleated RBC % 0 Sodium 141 Potassium 3.6 Chloride 104 Carbon Dioxide 29.0 Anion Gap 8 BUN 29 H Creatinine 1.47 H Estim Creat Clear Calc 57.96 Est GFR (MDRD) Af Amer 60 Est GFR (MDRD) Non-Af 50 L BUN/Creatinine Ratio 19.7 Glucose 155 H Calcium 8.9 Magnesium 1.8 Total Bilirubin 0.80 Direct Bilirubin 0.29 AST 20 ALT 21 Alkaline Phosphatase 65 Total Protein 7.7 Albumin 3.0 L Globulin 4.7 H Lipase 22 TSH 0.08 L Radiography Diagnostic Testing: Clinical Impression(s) from Imaging Studies Chest X-Ray 06/03/23 06:22 IMPRESSION: Left basilar atelectasis versus infiltrate and small pleural effusion Electronically Signed: Mynor Haider MD at 7:40 EDT , Chest x-ray as interpreted by the emergency medicine physician reveals bibasilar atelectasis without pneumothorax or significant pleural effusion Discharge Plan Triage Chief Complaint: General Illness ED Provider: Balaji Navarro Dx/Rx/DC Orders Clinical Impression: Viral syndrome, Diabetes mellitus, Hypothyroidism, CKD (chronic kidney disease) Instructions: ED Viral Syndrome (Adult) Prescriptions: New doxycycline hyclate 100 mg capsule 100 mg PO BID 7 Days Qty: 14 0RF No Action metformin 500 mg tablet 1,000 mg PO QHS nitroglycerin 0.4 mg tablet, sublingual 0.4 mg SUBLINGUAL Q5-15M PRN (Reason: chest pain) Qty: 90 6RF Rx Instructions: until response; do not exceed 3 doses per episode isosorbide mononitrate 60 mg tablet extended release 24 hr 30 mg PO DAILY metoprolol tartrate 25 mg tablet 12.5 mg PO BID Rx Instructions: Hold for heart less than 50 or systolic blood pressure less than 100 mmHg. Novolin 70/30 U-100 Insulin 100 unit/mL (70-30) suspension 32 unit SUBCUT QHS Novolin 70/30 U-100 Insulin 100 unit/mL (70-30) suspension 40 unit SUBCUT DAILY aspirin 81 MG tablet,chewable 81 mg PO DAILY@0800 ezetimibe [Zetia] 10 mg tablet 10 mg PO DAILY empagliflozin 25 mg tablet 12.5 mg PO DAILY cholecalciferol (vitamin D3) [VitaJoy Daily D] 25 mcg (1,000 unit) tablet,chewable 25 mcg PO DAILY tamsulosin 0.4 mg Capsule 0.4 mg PO QHS Xarelto 20 mg tablet 20 mg PO QHS Rx Instructions: must administer with evening meal Mucinex DM 30-600 mg Tablet Extended Release 12 Hr 2 tab PO BID 7 Days Qty: 28 0RF losartan 100 mg tablet 50 mg PO DAILY 30 Days Qty: 0 0RF Rx Instructions: Dose decreased to 50 mg daily. Hold for SBP less than 130 mmHg levothyroxine [Euthyrox] 200 mcg tablet 200 mcg PO DAILY furosemide [Lasix] 40 mg tablet 40 mg PO DAILY Rx Instructions: Take furosemide 80 mg at 10 AM if increased leg swelling or weight gain 5 pounds in 1 week. [facility] [Primary Care Provider] - Activity Restrictions/Additional Instructions: Your symptoms and workup are most consistent with a viral infection which will just take time to run its course. However as radiologist question developing pneumonia please take the prescribed antibiotic as directed and return to the ER should you have any further concerns Disposition Disposition: Home, Self Care Discharge Date/Time: 06/03/23 08:50
[2023-06-03 08:49] VITALS: BP 124/66; PULSE 70; RESP 18; TEMP 36.6; O2SAT 96
== END 2023-06-03 08:50 | disposition home or self-care (01) ==
PROVIDERS: Emergency Provider Emergency Medicine; Visit Provider Emergency Medicine
DX: B34.9 Viral infection, unspecified (principal); E11.51 Type 2 diabetes mellitus with diabetic peripheral angiopathy without gangrene; I13.0 Hypertensive heart and chronic kidney disease with heart failure and stage 1 through stage 4 chronic kidney disease, or unspecified chronic kidney disease; I50.30 Unspecified diastolic (congestive) heart failure; E11.22 Type 2 diabetes mellitus with diabetic chronic kidney disease; E11.42 Type 2 diabetes mellitus with diabetic polyneuropathy; Z79.4 Long term (current) use of insulin; N18.9 Chronic kidney disease, unspecified; Z87.891 Personal history of nicotine dependence; E03.9 Hypothyroidism, unspecified; E78.5 Hyperlipidemia, unspecified; I25.10 Atherosclerotic heart disease of native coronary artery without angina pectoris; I25.2 Old myocardial infarction; Z86.73 Personal history of transient ischemic attack (TIA), and cerebral infarction without residual deficits; G47.33 Obstructive sleep apnea (adult) (pediatric); Z99.81 Dependence on supplemental oxygen; Z95.0 Presence of cardiac pacemaker; Z79.84 Long term (current) use of oral hypoglycemic drugs; Z79.899 Other long term (current) drug therapy; Z79.82 Long term (current) use of aspirin; Z79.01 Long term (current) use of anticoagulants; N40.0 Benign prostatic hyperplasia without lower urinary tract symptoms; Z95.5 Presence of coronary angioplasty implant and graft
CPT/HCPCS: 71046; 80048; 80076; 83690; 83735; 84443; 85025; 87631; 93005; 99283; J7030; A4216

== ENCOUNTER 2023-07-16 11:36 | Emergency (ER) | payer OTHER, SELFPAY ==
[2023-07-16 11:36] VITALS: BP 122/95; PULSE 47; RESP 16; TEMP 36.1; O2SAT 95; BMI 29.2
--- NOTE | 2023-07-16 11:55 | EKG12_ITS ---
Test Reason : SOB Blood Pressure : / mmHG Vent. Rate : 070 BPM Atrial Rate : 070 BPM P-R Int : 000 ms QRS Dur : 200 ms QT Int : 514 ms P-R-T Axes : 000 -85 116 degrees QTc Int : 555 ms Ventricular-paced rhythm Abnormal ECG Confirmed by EDWIN HICKS MD ([id number]), commercial production editor LANDON GARCIA ([id number]) on 07/19/2023 9:36:32 AM Referred By: BERNARDO Confirmed By:EDWIN HICKS MD
--- NOTE | 2023-07-16 12:03 | EX.ED.DYSGE1 ---
HPI <SUKI Hercules - Last Filed: 07/16/23 15:17> History of Present Illness Chief Complaint: Shortness of Breath Narrative Narrative: Patient is a 72-year-old male with a long cardiac history with 2 stent placed, history of CABG in 2017, who does see the heart group here, hypertension hyperlipidemia diabetes. Patient states that over the last several months he has not felt himself. However over the last 2 to 3 days he been feeling more short of breath on exertion, feeling some chest heaviness, he is also states the shortness of breath is worse in the morning. He denies any fever chills nausea or vomiting. Patient denies any diaphoresis, denies any sharp pain that radiates anywhere. PFS <SUKI Hercules - Last Filed: 07/16/23 15:17> [facility] Medical History (Updated 07/16/23 @ 15:16 by SUKI Hercules) (HFpEF) heart failure with preserved ejection fraction Aftercare following surgery of the circulatory system Atherosclerosis of crow coronary artery of crow heart without angina pectoris Atrial flutter Atrial flutter by electrocardiogram BPH (benign prostatic hyperplasia) CAD (coronary artery disease) Cardiomyopathy CKD (chronic kidney disease) CVA (cerebral vascular accident) Diabetes mellitus Dizziness Essential (primary) hypertension History of DVT (deep vein thrombosis) History of non-ST elevation myocardial infarction (NSTEMI) Hyperlipidemia Hypothyroidism Ischemic stroke Left leg pain 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 atrioventricular block NSVT (nonsustained ventricular tachycardia) Obesity Open wound of scalp WILLIAN treated with BiPAP PAD (peripheral artery disease) Palpitations Peripheral neuropathy Presence of cardiac pacemaker Stroke Thrombosis of left common femoral artery Thyroid disorder Home Medications metformin 500 mg tablet 1,000 mg PO QHS DM 03/19/17 [History Last Taken 10/27/22 18:30] nitroglycerin 0.4 mg sublingual tablet 0.4 mg sublingual Q5-15M PRN chest pain #90 tabs 05/25/18 [Rx Last Taken Unknown] aspirin 81 mg chewable tablet 81 mg PO DAILY@0800 HEALTH MAINTENANCE 06/16/22 [History Last Taken 10/27/22 08:00] ezetimibe 10 mg tablet (Zetia) 10 mg PO DAILY DM 06/16/22 [History Last Taken 10/27/22 08:00] insulin human U-100 NPH-regulr 70-30 mix 100 unit/mL subcutaneous susp (Novolin 70/30 U-100 Insulin) 32 unit subcut QHS DM 06/16/22 [History Last Taken 06/15/22] insulin human U-100 NPH-regulr 70-30 mix 100 unit/mL subcutaneous susp (Novolin 70/30 U-100 Insulin) 40 unit subcut DAILY DM 06/16/22 [History Last Taken 06/16/22] empagliflozin 25 mg tablet 12.5 mg PO DAILY diabetes 11/24/22 [History Last Taken Unknown] isosorbide mononitrate 60 mg tablet,extended release 24 hr 30 mg PO DAILY HEART 04/01/23 [History Last Taken Unknown] metoprolol tartrate 25 mg tablet 12.5 mg PO BID HEART/BLOOD PRESSURE 04/01/23 [History Last Taken Unknown] cholecalciferol (vitamin D3) 25 mcg (1,000 unit) chewable tablet (VitaJoy Daily D) 25 mcg PO DAILY 05/14/23 [History Last Taken Unknown] rivaroxaban 20 mg tablet (Xarelto) 20 mg PO QHS blood thinner 05/14/23 [History Last Taken Unknown] tamsulosin 0.4 mg capsule 0.4 mg PO QHS prostate 05/14/23 [History Last Taken Unknown] losartan 100 mg tablet 50 mg (1/2 x 100 mg) PO DAILY 30 days #0 tabs 05/17/23 [Rx Last Taken Unknown] furosemide 40 mg tablet (Lasix) 40 mg PO DAILY fluid retention 06/03/23 [History Last Taken Unknown] levothyroxine 200 mcg tablet (Euthyrox) 200 mcg PO DAILY 06/03/23 [History Last Taken Unknown] dextromethorphan-guaifenesin 30 mg-600 mg tablet extended hr (Mucinex DM) 2 tab PO BID PRN cough 07/16/23 [History Last Taken Unknown] prednisone 50 mg tablet 50 mg PO DAILY #5 tabs 07/16/23 [Rx Last Taken Unknown] Allergy/AdvReac Type Severity Reaction Status Date / Time atorvastatin [From Lipitor] AdvReac Severe mylagia Verified 07/16/23 11:43 lanolin AdvReac Severe Rash Verified 07/16/23 11:43 Family History Sister CAD (coronary artery disease) Diabetes Brother CAD (coronary artery disease) Father Asthma Mother Cancer lung Surgical History History of coronary artery bypass surgery (~01/21/17) Hx of cardiac catheterization (~01/19/17) S/P coronary artery stent placement (~04/05/18) Social History household members: spouse Smoking Status: Former smoker how long ago did patient quit smokin alcohol intake: never substance use type: does not use caffeine: Yes Type: coffee Number of servings: 3 what type of physical activity do you participate in: none seatbelt use: always do you feel safe at home: Yes ROS <SUKI Hercules - Last Filed: 07/16/23 15:17> ROS ED ROS Narrative Constitutional: Negative for fever, chills, weight loss. Positive for weakness Eyes: Negative for vision loss, vision change, double vision ENT: Negative for any sore throat, ear pain, congestion Cardiovascular: Negative for any chest pain, palpitations. Positive for tightness Respiratory: Negative for any cough, sputum production, hemoptysis .positive dyspnea, dyspnea on exertion, orthopnea Gastrointestinal: Negative for any abdominal pain, nausea, vomiting, diarrhea, constipation, blood in stool, blood in vomit : Negative for any urinary frequency, dysuria, retention, blood in urine Muscle skeletal: Negative for any neck pain, back pain Neurological: Negative for any headache, syncope, dizziness Skin: Negative for any rashes, itching, abrasions, lacerations Psychiatric: Negative for any depression, anxiety, stress, suicidal ideation, homicidal ideation Hematologic: Negative for any excessive bruising, easy bleeding EXAM <SUKI Hercules - Last Filed: 07/16/23 15:17> Physical Exam Narrative Exam Narrative: Vital signs reviewed. HEET: Head normocephalic atraumatic, TMs clear bilaterally. Posterior pharynx is clear, moist mucous membranes. Nares clear bilaterally. Neck: Supple with no lymphadenopathy or tenderness. No signs of meningismus. Cardiac: Regular rate and rhythm no murmurs gallops or rubs, equal peripheral pulses bilaterally. Respiratory: Lung sounds show slight crackles to the left lower lobe, the remainder was clear. No chest tenderness. Abdomen: Soft, nontender, nondistended. No abdominal bruit or pulsatile masses. No hepatosplenomegaly Extremities: No peripheral edema, no signs of gross trauma or deformity. Active full range of motion of all extremities. Neuro: Cranial nerves II through XII intact, no focal neurological deficits. Skin: Clean dry and intact with no rash, purpura, petechiae, vesicles or pustules. Backs/flank: No CVA tenderness, no midline spinal tenderness, no deformity. Psych: Normal mood and affect. No SI, HI or acute psychosis. Const Vital Signs: 07/16/23 11:36 07/16/23 11:43 07/16/23 12:59 Temperature 97.0 F L 98.7 F Temperature Source Temporal Oral Pulse Rate 47 L 78 Respiratory Rate 16 18 Respiratory Effort Normal Non-Labored Respiratory Depth Normal Respiratory Pattern Normal Blood Pressure 122/95 H 112/62 Blood Pressure Mean 104 78 Pulse Ox 95 94 Oxygen Delivery Method Room Air Room Air 07/16/23 14:54 Temperature Temperature Source Pulse Rate 75 Respiratory Rate 18 Respiratory Effort Respiratory Depth Respiratory Pattern Blood Pressure 123/75 H Blood Pressure Mean 91 Pulse Ox 94 Oxygen Delivery Method Room Air <Dr. Norm Phelps MD - Last Filed: 07/16/23 15:12> Physical Exam Const Vital Signs: 07/16/23 11:36 07/16/23 11:43 07/16/23 12:59 Temperature 97.0 F L 98.7 F Temperature Source Temporal Oral Pulse Rate 47 L 78 Respiratory Rate 16 18 Respiratory Effort Normal Non-Labored Respiratory Depth Normal Respiratory Pattern Normal Blood Pressure 122/95 H 112/62 Blood Pressure Mean 104 78 Pulse Ox 95 94 Oxygen Delivery Method Room Air Room Air 07/16/23 14:54 Temperature Temperature Source Pulse Rate 75 Respiratory Rate 18 Respiratory Effort Respiratory Depth Respiratory Pattern Blood Pressure 123/75 H Blood Pressure Mean 91 Pulse Ox 94 Oxygen Delivery Method Room Air MDM <SUKI Hercules - Last Filed: 07/16/23 15:17> MDM Lab Data Labs: Laboratory Results - last 24 hr 07/16/23 07/16/23 07/16/23 12:05 14:17 14:46 WBC 11.2 H RBC 5.54 Hgb 15.8 Hct 48.2 MCV 87.0 MCH 28.5 MCHC 32.8 RDW Std Deviation 49.1 H RDW Coeff of [place] 15.9 H Plt Count 178 MPV 11.7 Immature Gran % (Auto) 0.500 Neut % (Auto) 72.5 H Lymph % (Auto) 18.0 L [place] % (Auto) 6.5 Eos % (Auto) 2.0 Baso % (Auto) 0.5 Absolute Neuts (auto) 8.1 H Absolute Lymphs (auto) 2.01 Nucleated RBC % 0 Sodium 139 Potassium 3.6 Chloride 107 Carbon Dioxide 25.0 Anion Gap 7 BUN 29 H Creatinine 1.53 H Estim Creat Clear Calc 54.43 Est GFR (MDRD) Af Amer 58 L Est GFR (MDRD) Non-Af 48 L BUN/Creatinine Ratio 19.0 Glucose 144 H Calcium 9.0 Troponin I High Sens 38 Cancelled 33 B-Natriuretic Peptide 591.2 H Radiography Diagnostic Testing: Clinical Impression(s) from Imaging Studies Chest X-Ray 07/16/23 12:10 IMPRESSION: Stable mild increased markings at the left lung base suggestive of scarring. Electronically Signed: Jesus Alberto Blair MD at 12:35 EDT , EKG Ventricular paced rhythm: Attestation: I personally reviewed and interpreted this EKG as follows: Comments: Ventricular paced rhythm, rate of [address] elevation, no acute infarct noted. Treatment and Re-Evaluation :: Differential diagnosis includes however is not limited to: ACS, ND, CHF exacerbation, decreased output, pneumonia Patient appears to be in no obvious respiratory distress vital signs are stable. Patient presents to the emergency department with complaints of chest pressure, dyspnea worse in the morning. Essentially this is been ongoing for multiple weeks however patient states last 2 to 3 days has been worse. Patient will receive a full cardiac workup, chest x-ray, patient is currently not complaining of any chest pain. All radiologic examinations were read, reviewed by the emergency department attending. From these reads, a plan of care will be put in place. Patient's chest x-ray shows stable mild increasing markings in the left lung base, no acute process. Patient's laboratory values showed a slight leukocytosis with a white blood count of 11.2, patient has no infectious symptoms. Patient's chemistries shows a chronic renal sufficiency with a creatinine of 1.53, this is baseline for the patient over the last year. Patient's BNP is 591 which is elevated however the patient's previous 1 in April 2023 was 1134. Patient's troponin was 38 which is negative. Patient will receive a delta troponin. Patient vital signs remained stable. Repeat troponin was negative. At this time, there is no evidence suspect any ACS ND. Patient will be treated for more of a COPD exacerbation. He will be given prednisone here, placed on a short course of a burst of steroids. [facility] He was given strict return precaution, all questions answered stable for discharge. <Dr. Norm Phelps MD - Last Filed: 07/16/23 15:12> [facility] MDM Narrative Medical decision making narrative: I have personally performed a face to face assessment of the patient and have reviewed the BERTHA Note. I performed a substantive portion of the visit including all aspects of the following. My padilla findings include: History is exertional dyspnea for months. Few episodes of chest heaviness associated within the last few days, the last episode was last night, it has been intermittent. No fevers, chills. He does have a productive cough that has been worse in the past week. Was on antibiotics for all of this several times in the past 2 months. He feels this is all continuation of the productive cough and dyspnea on exertion that he has had in the last couple months. The last antibiotic he was on 2 or 3 weeks ago. Following with the [facility] in [place]. States right now he is breathing better after finally clearing some phlegm from his chest/throat. Admits that when he has shortness of breath, he is wheezing. No history of COPD that he knows of, but he has a history of approximately 45 pack years of smoking although he does not currently smoke. Exam is heart regular no murmur no tachycardia. Lungs diminished throughout, but clear throughout. Speaking in full sentences. No peripheral edema. No JVD. Abdomen benign. Medical Decison Making cardiac workup and 2 troponin measurements. Chest x-ray 2 views my interpretation shows no acute pneumonia. Radiology in agreement. If second troponin measurement is negative since everything else looks good, in discussing with the patient he really does not want to try more antibiotic since it did not help in the past, we will try a prednisone burst for 5 days and have him follow-up he is comfortable with that plan. Other additions or changes: [None] Lab Data Labs: Laboratory Results - last 24 hr 07/16/23 07/16/23 07/16/23 12:05 14:17 14:46 WBC 11.2 H RBC 5.54 Hgb 15.8 Hct 48.2 MCV 87.0 MCH 28.5 MCHC 32.8 RDW Std Deviation 49.1 H RDW Coeff of [place] 15.9 H Plt Count 178 MPV 11.7 Immature Gran % (Auto) 0.500 Neut % (Auto) 72.5 H Lymph % (Auto) 18.0 L [place] % (Auto) 6.5 Eos % (Auto) 2.0 Baso % (Auto) 0.5 Absolute Neuts (auto) 8.1 H Absolute Lymphs (auto) 2.01 Nucleated RBC % 0 Sodium 139 Potassium 3.6 Chloride 107 Carbon Dioxide 25.0 Anion Gap 7 BUN 29 H Creatinine 1.53 H Estim Creat Clear Calc 54.43 Est GFR (MDRD) Af Amer 58 L Est GFR (MDRD) Non-Af 48 L BUN/Creatinine Ratio 19.0 Glucose 144 H Calcium 9.0 Troponin I High Sens 38 Cancelled 33 B-Natriuretic Peptide 591.2 H Radiography Diagnostic Testing: Clinical Impression(s) from Imaging Studies Chest X-Ray 07/16/23 12:10 IMPRESSION: Stable mild increased markings at the left lung base suggestive of scarring. Electronically Signed: Jesus Alberto Blair MD at 12:35 EDT , Discharge Plan Triage Chief Complaint: Shortness of Breath ED Midlevel Provider: Wali Valerio ED Provider: Norm Phelps Dx/Rx/DC Orders Clinical Impression: Chronic dyspnea, COPD (chronic obstructive pulmonary disease) Instructions: COPD and Heart Disease Prescriptions: New prednisone 50 mg tablet 50 mg PO DAILY Qty: 5 0RF No Action metformin 500 mg tablet 1,000 mg PO QHS nitroglycerin 0.4 mg tablet, sublingual 0.4 mg SUBLINGUAL Q5-15M PRN (Reason: chest pain) Qty: 90 6RF Rx Instructions: until response; do not exceed 3 doses per episode isosorbide mononitrate 60 mg tablet extended release 24 hr 30 mg PO DAILY metoprolol tartrate 25 mg tablet 12.5 mg PO BID Rx Instructions: Hold for heart less than 50 or systolic blood pressure less than 100 mmHg. Novolin 70/30 U-100 Insulin 100 unit/mL (70-30) suspension 32 unit SUBCUT QHS Novolin 70/30 U-100 Insulin 100 unit/mL (70-30) suspension 40 unit SUBCUT DAILY aspirin 81 MG tablet,chewable 81 mg PO DAILY@0800 ezetimibe [Zetia] 10 mg tablet 10 mg PO DAILY empagliflozin 25 mg tablet 12.5 mg PO DAILY cholecalciferol (vitamin D3) [VitaJoy Daily D] 25 mcg (1,000 unit) tablet,chewable 25 mcg PO DAILY tamsulosin 0.4 mg Capsule 0.4 mg PO QHS Xarelto 20 mg tablet 20 mg PO QHS Rx Instructions: must administer with evening meal losartan 100 mg tablet 50 mg PO DAILY 30 Days Qty: 0 0RF Rx Instructions: Dose decreased to 50 mg daily. Hold for SBP less than 130 mmHg levothyroxine [Euthyrox] 200 mcg tablet 200 mcg PO DAILY furosemide [Lasix] 40 mg tablet 40 mg PO DAILY Rx Instructions: Take furosemide 80 mg at 10 AM if increased leg swelling or weight gain 5 pounds in 1 week. Mucinex DM 30-600 mg Tablet Extended Release 12 Hr 2 tab PO BID PRN (Reason: cough) [facility] [Primary Care Provider] - Activity Restrictions/Additional Instructions: Take the prednisone as prescribed. Please return for any worsening symptoms. Disposition Disposition: Home, Self Care
--- NOTE | 2023-07-16 12:10 | RAD_ITS ---
STUDY: X-RAY CHEST REASON FOR EXAM: Male, 72 years old. Chest pain and shortness of breath. TECHNIQUE: PA and lateral views of the chest. COMPARISON: Comparison is made with prior study June 03, 2023. FINDINGS: EKG electrodes are seen. Stable mild increased markings at the left lung base suggestive of scarring. There is no demonstrated pleural abnormality. Sternal cerclage wires and vascular clips are present from a prior sternotomy and coronary artery bypass graft procedure (CABG). Borderline cardiomegaly. A left-sided dual-chamber pacemaker is seen. Normal mediastinum and nasrin. Normal visualized pulmonary arteries. There is atherosclerotic calcification of the aortic arch with tortuosity. There is demineralization of the osseous structures. Normal visualized ribs, clavicles, and shoulders. There is no demonstrated abnormality of the visualized soft tissue structures of the upper abdomen. RAD/Chest PA and Lateral IMPRESSION: Stable mild increased markings at the left lung base suggestive of scarring. Electronically Signed: Jesus Alberto Blair MD at 12:35 EDT ,
[2023-07-16 12:16] LABS: Absolute Lymphocyte Count 2.01 X10^3/uL (0.83-4.51); Absolute Neutrophil Count 8.1 X10^3/uL (2.0-7.7); Basophil# 0.06 X10^3/uL; Basophil% 0.5 % (0-1); Eosinophil# 0.22 X10^3/uL; Hematocrit 48.2 % (40-54); Hemoglobin 15.8 g/dL (13.0-16.5); Lymphocyte # 2.01 X10^3/ul (0.83-4.51); Mean Corp Hgb Conc 32.8 g/dL (32-36); Mean Corpuscular Hgb 28.5 pg (27.0-32.0); Mean Platelet Vol. 11.7 fl (6.2-12.0); Monocyte# 0.73 X10^3/uL; Monocyte% 6.5 % (0-10); NRBC Flagged by Analyzer 0 % (0-5); Neutrophil # 8.11 X10^3/uL (2.7-7.7); Neutrophil % 72.5 % (47-70); Platelet Count 178 K/mm3 (150-450); RBC Distribution Width CV 15.9 % (11.6-14.6); RBC Distribution Width SD 49.1 fl (35.1-43.9); Red Blood Count 5.54 M/mm3 (4.6-6.2); White Blood Count 11.2 K/mm3 (4.4-11.0)
[2023-07-16 12:30] LABS: Anion Gap 7 (5-15); BUN 29 mg/dL (7-18); Chloride 107 mmol/L (98-107); Creatinine, Serum 1.53 mg/dL (0.70-1.30); EST Glomerular Filtration Rate 48 mL/min (>60); Est Glom Filt Rate - Afr Amer 58 mL/min (>60); Estimated Creatinine Clearance 54.43 ml/min; Glucose 144 mg/dL (74-106); Potassium 3.6 mmol/L (3.5-5.1); Sodium Level 139 mmol/L (136-145); Troponin-I HS (w/2H Reflex) 38 pg/mL (3.0-78.0)
[2023-07-16 12:49] LABS: BNP,B-Type NATRIURETIC PEPTIDE 591.2 pg/mL (0-100)
[2023-07-16 12:59] VITALS: BP 112/62; PULSE 78; RESP 18; TEMP 37.1; O2SAT 94
[2023-07-16 14:06] LABS: Reflex Troponin-HS? (from REC) Y
[2023-07-16 14:54] VITALS: BP 123/75; PULSE 75; RESP 18; O2SAT 94
[2023-07-16 15:14] LABS: Troponin-I HS 33 pg/mL (3.0-78.0)
[2023-07-16] MEDS: predniSONE 20 MG Tablet 60 MG PO (15:22)
[2023-07-16 15:28] VITALS: BP 118/69; PULSE 75; RESP 18; TEMP 37.1; O2SAT 94
== END 2023-07-16 15:30 | disposition home or self-care (01) ==
PROVIDERS: Nurse Practitioner; Emergency Provider Emergency Medicine; Visit Provider Emergency Medicine
DX: J44.9 Chronic obstructive pulmonary disease, unspecified (principal); I13.0 Hypertensive heart and chronic kidney disease with heart failure and stage 1 through stage 4 chronic kidney disease, or unspecified chronic kidney disease; I50.30 Unspecified diastolic (congestive) heart failure; Z79.4 Long term (current) use of insulin; E11.22 Type 2 diabetes mellitus with diabetic chronic kidney disease; Z87.891 Personal history of nicotine dependence; R06.00 Dyspnea, unspecified; Z95.5 Presence of coronary angioplasty implant and graft; Z95.1 Presence of aortocoronary bypass graft; I25.10 Atherosclerotic heart disease of native coronary artery without angina pectoris; N18.9 Chronic kidney disease, unspecified; Z86.73 Personal history of transient ischemic attack (TIA), and cerebral infarction without residual deficits; I25.2 Old myocardial infarction; Z95.0 Presence of cardiac pacemaker; Z79.899 Other long term (current) drug therapy; Z79.84 Long term (current) use of oral hypoglycemic drugs; Z79.01 Long term (current) use of anticoagulants; N40.0 Benign prostatic hyperplasia without lower urinary tract symptoms; E03.9 Hypothyroidism, unspecified
CPT/HCPCS: 71046; 80048; 83880; 84484; 85025; 93005; 99285; A4216

== ENCOUNTER 2023-11-28 10:11 | Inpatient (IN) | payer OTHER, SELFPAY ==
[2023-11-28] VITALS (15 sets, daily range): BP systolic 106–129; BP diastolic 58–95; PULSE 61–87; RESP 16–25; TEMP 36.2–36.8; O2SAT 91–99; BMI 29.8
[2023-11-28 10:54] LABS: Anion Gap 4 (5-15); BUN 31 mg/dL (7-18); BUN/Creat Ratio 19.6 RATIO (10-20); Calcium,Total 9.5 mg/dL (8.5-10.1); Chloride 102 mmol/L (98-107); Creatinine, Serum 1.58 mg/dL (0.70-1.30); EST Glomerular Filtration Rate 46 mL/min (>60); Est Glom Filt Rate - Afr Amer 56 mL/min (>60); Glucose 72 mg/dL (74-106); Potassium 3.3 mmol/L (3.5-5.1); Sodium Level 138 mmol/L (136-145); Troponin-I HS 44 pg/mL (3.0-78.0)
[2023-11-28 11:01] LABS: Absolute Neutrophil Count 5.7 X10^3/uL (2.0-7.7); Basophil# 0.08 X10^3/uL; Basophil% 0.9 % (0-1); Eosinophil# 0.25 X10^3/uL; Eosinophils% 2.8 % (0-5); Hematocrit 51.2 % (40-54); Hemoglobin 16.2 g/dL (13.0-16.5); Lymphocyte % 26.5 % (19-41); Mean Corp Hgb Conc 31.6 g/dL (32-36); Mean Corpuscular Hgb 28.6 pg (27.0-32.0); Mean Corpuscular Volume 90.3 fL (80-94); Mean Platelet Vol. 11.7 fl (6.2-12.0); Monocyte# 0.57 X10^3/uL; Monocyte% 6.3 % (0-10); NRBC Flagged by Analyzer 0 % (0-5); Neutrophil # 5.72 X10^3/uL (2.7-7.7); Neutrophil % 63.2 % (47-70); Platelet Count 209 K/mm3 (150-450); RBC Distribution Width CV 17.1 % (11.6-14.6); RBC Distribution Width SD 54.1 fl (35.1-43.9); Red Blood Count 5.67 M/mm3 (4.6-6.2); White Blood Count 9.1 K/mm3 (4.4-11.0)
--- NOTE | 2023-11-28 11:31 | RAD_ITS ---
INDICATION: Shortness of breath EXAMINATION/TECHNIQUE: X-RAY - XR Chest 2 Views COMPARISON: July 16, 2023 FINDINGS: LINES/DEVICES: There is a dual-lead cardiac pacer device in place. LUNGS: There are bilateral prominent interstitial markings. There is a round opacity projecting over the right upper lung. No pneumothorax. MEDIASTINUM AND CARDIOVASCULAR STRUCTURES: There are sternotomy wires in place. There is cardiomegaly. Central airways and mediastinal contour are unremarkable. BONES AND SOFT TISSUES: Unremarkable. RAD/Chest PA and Lateral IMPRESSION: Findings may reflect congestive heart failure. Indeterminate round opacity projecting over the right upper lung which may be artifactual however cannot exclude a nodular opacity, consider chest CT for further evaluation. Electronically Signed: Kat Gamez MD at 12:38 EDT ,
--- NOTE | 2023-11-28 11:32 | ED.VIS.DYS ---
HPI History of Present Illness Chief Complaint: Shortness of Breath Informant: patient Narrative Narrative: Patient is a 73-year-old male with history of proximal atrial flutter, sick sinus syndrome (status post pacemaker), DVT (on Xarelto), heart failure with preserved ejection fraction, peripheral arterial disease, hypothyroidism, coronary artery disease and cardiomyopathy presenting with worsening shortness of breath. Patient states she has had a productive cough for years. He has had worsening shortness of breath over the past few months. His doctor through the [place] prescribed an albuterol inhaler which does help a little as well as cetirizine which helps some as well. He notes today his breathing is significantly worse. He feels like he is wheezing more. He also feels that he is may be holding onto fluids however he checks his weight daily denies any change in his weight today. He does feel little dizzy and states he is felt this way for the past few days. He notes some nausea but no vomiting. Does have chronic diarrhea which he attributes to his metformin and no change in this. Denies any black or blood in his stool. Denies any URI symptoms or fever. Notes that was hospitalized back in April for flulike illness but they never really figured out what caused it. Does not report any sick contacts. No other complaints or concerns at this time. [facility] Medical History (Updated 11/28/23 @ 13:[address] Yola Hummel DO) CKD stage 3a, GFR 45-59 ml/min Cardiomyopathy Presence of cardiac pacemaker 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 atrioventricular block Peripheral neuropathy (HFpEF) heart failure with preserved ejection fraction History of DVT (deep vein thrombosis) BPH (benign prostatic hyperplasia) PAD (peripheral artery disease) CAD (coronary artery disease) WILLIAN treated with BiPAP Obesity Atrial flutter Hypothyroidism Atrial flutter by electrocardiogram CKD (chronic kidney disease) Aftercare following surgery of the circulatory system Thrombosis of left common femoral artery Left leg pain Palpitations NSVT (nonsustained ventricular tachycardia) History of non-ST elevation myocardial infarction (NSTEMI) Stroke CVA (cerebral vascular accident) Open wound of scalp Ischemic stroke Dizziness Essential (primary) hypertension Atherosclerosis of [place] coronary artery of [place] heart without angina pectoris Thyroid disorder Diabetes mellitus Hyperlipidemia Home Medications ?Medication ?Instructions ?Recorded ?Last Taken ?Type metformin 500 mg tablet 1,000 mg PO QHS DM 03/19/17 11/27/23 History nitroglycerin 0.4 mg sublingual 0.4 mg sublingual Q5-15M PRN chest 05/25/18 Unknown Rx tablet pain #90 tabs aspirin 81 mg chewable tablet 81 mg PO DAILY@0800 HEALTH 06/16/22 11/28/23 History MAINTENANCE ezetimibe 10 mg tablet (Zetia) 10 mg PO DAILY DM 06/16/22 11/28/23 History insulin human U-100 NPH-regulr 32 unit subcut QHS DM 06/16/22 11/27/23 History 70-30 mix 100 unit/mL subcutaneous susp (Novolin 70/30 U-100 Insulin) insulin human U-100 NPH-regulr 40 unit subcut DAILY DM 06/16/22 11/28/23 History 70-30 mix 100 unit/mL subcutaneous susp (Novolin 70/30 U-100 Insulin) empagliflozin 25 mg tablet 12.5 mg PO DAILY diabetes 11/24/22 11/28/23 History isosorbide mononitrate 60 mg 30 mg PO DAILY HEART 04/01/23 11/28/23 History tablet,extended release 24 hr metoprolol tartrate 25 mg tablet 12.5 mg PO BID HEART/BLOOD PRESSURE 04/01/23 11/28/23 History rivaroxaban 20 mg tablet (Xarelto) 20 mg PO QHS blood thinner 05/14/23 11/27/23 History tamsulosin 0.4 mg capsule 0.4 mg PO QHS prostate 05/14/23 11/27/23 History furosemide 40 mg tablet (Lasix) 40 mg PO DAILY fluid retention 06/03/23 11/28/23 History levothyroxine 200 mcg tablet 200 mcg PO DAILY 06/03/23 11/28/23 History (Euthyrox) cetirizine 10 mg tablet (24Hour 10 mg PO DAILY 11/28/23 11/28/23 History Allergy) losartan 100 mg tablet 100 mg PO DAILY 11/28/23 11/28/23 History Allergy/AdvReac Type Severity Reaction Status Date / Time atorvastatin (From Lipitor) AdvReac Severe mylagia Verified 11/28/23 10:13 lanolin AdvReac Severe Rash Verified 11/28/23 10:13 Family History Sister CAD (coronary artery disease) Diabetes Brother CAD (coronary artery disease) Father Asthma Mother Cancer lung Surgical History Hx of cardiac catheterization (~01/19/17) S/P coronary artery stent placement (~04/05/18) History of coronary artery bypass surgery (~01/21/17) Social History household members: spouse Smoking Status: Former smoker how long ago did patient quit smokin alcohol intake: never substance use type: does not use caffeine: Yes Type: coffee Number of servings: 3 what type of physical activity do you participate in: none seatbelt use: always do you feel safe at home: Yes ROS ROS ED Constitutional Constitutional ED: Reports other Details: Positive dizziness ; Denies chills or fever(s) ENT ENT ED: Denies ear pain, rhinorrhea or sore throat Cardiovascular Cardiovascular: Denies chest pain or palpitations Respiratory/Chest Respiratory/Chest: Reports cough, dyspnea, dyspnea on exertion and sputum Gastrointestinal Gastrointestinal: Reports diarrhea; Denies abdominal pain, nausea or vomiting Musculoskeletal Musculoskeletal: Denies arthralgias or myalgias Integumentary Denies rash Neurologic Neurologic: Denies headache(s) Hematologic/Lymphatic Hematologic/Lymphatic: Reports easy bleeding and easy bruising EXAM Physical Exam Const Vital Signs: 11/28/23 10:12 11/28/23 10:27 11/28/23 10:29 Temperature 97.2 F L Temperature Source Temporal Pulse Rate 82 Respiratory Rate 16 23 H Respiratory Effort Non-Labored Labored Respiratory Pattern Blood Pressure 121/84 H Blood Pressure Mean 96 Pulse Ox 99 94 Oxygen Delivery Method Room Air Room Air Room Air 11/28/23 10:30 11/28/23 10:52 11/28/23 11:22 Temperature Temperature Source Pulse Rate 80 75 Respiratory Rate 25 H 21 H Respiratory Effort Respiratory Pattern Blood Pressure 117/85 H 125/85 H Blood Pressure Mean 95 98 Pulse Ox 93 96 Oxygen Delivery Method Room Air Room Air Room Air 11/28/23 11:42 11/28/23 13:00 Temperature Temperature Source Pulse Rate 74 87 Respiratory Rate 18 16 Respiratory Effort Respiratory Pattern Normal Blood Pressure 116/95 H Blood Pressure Mean 102 Pulse Ox 92 Oxygen Delivery Method Room Air Positive well nourished and well developed General Appearance ED: well developed and pallor HEENT Reports TM's clear and moist mucous membranes HEENT Narrative: Normal oropharynx. atraumatic Tympanic Membrane ED: Yes TM's clear Eyes PERRL Neck supple and no JVD Resp normal respiratory effort Resp Narrative: No increased work of breathing. Diminished breath sounds at the bases with slight crackles appreciated at the right base. No wheezing at this time. Cardio regular rate and regular rhythm Cardio Narrative: 2+ radial DP pulses present. GI non-tender and non-distended Extremity normal to inspection General Extremety ED: Negative for edema General Extremity: Negative for edema Neuro oriented x3 Sensorium / Orientation: alert Motor Exam: Negative for general weakness Psych mental status grossly normal Skin no wounds General Skin Exam: pallor Rashes: no rashes MDM MDM MDM Narrative Medical decision making narrative: Patient is evaluated for worsening shortness of breath. Sounds like he has underlying lung disease that has not been fully diagnosed and he is in the process of getting worked up. He also has significant cardiac history. He does not clinically appear fluid overloaded. Low suspicion for PE as he is chronically anticoagulated. Will give a DuoNeb. Will check labs including CBC, BMP, troponin and BNP. Will check for COVID swab as there is high community spread at this time. Will obtain a chest x-ray. 2 view chest x-ray viewed by myself as well as radiology shows signs of pulmonary vascular congestion consistent with CHF. Patient has an elevation of his BNP at 914 which is above his baseline. He has some very mild hypokalemia with a potassium of 3.3 and some baseline CKD with a creatinine of 1.58 without signs of an acute kidney injury. High since he troponin is normal at 44. Patient is ambulated and drops down to 8 86%. I do think patient would benefit from admission for IV diuresis. He started on IV Lasix in the ER. He is also given oral potassium supplementation. He is chronically anticoagulated to have a low suspicion for pulmonary emboli. Chest x-ray does show possible nodule in the right upper lobe. I do not think this is consistent with his acute presentation today and can be followed up either inpatient or outpatient. Will discuss the case with hospitalist. Lab Data Attestation: I reviewed the patient's lab results. Labs: Laboratory Results - last 24 hr 11/28/23 10:27 WBC 9.1 RBC 5.67 Hgb 16.2 Hct 51.2 MCV 90.3 MCH 28.6 MCHC 31.6 L RDW Std Deviation 54.1 H RDW Coeff of [place] 17.1 H Plt Count 209 MPV 11.7 Immature Gran % (Auto) 0.300 Neut % (Auto) 63.2 Lymph % (Auto) 26.5 [place] % (Auto) 6.3 Eos % (Auto) 2.8 Baso % (Auto) 0.9 Absolute Neuts (auto) 5.7 Absolute Lymphs (auto) 2.40 Nucleated RBC % 0 Sodium 138 Potassium 3.3 L Chloride 102 Carbon Dioxide 32.0 Anion Gap 4 L BUN 31 H Creatinine 1.58 H Est GFR (MDRD) Af Amer 56 L Est GFR (MDRD) Non-Af 46 L BUN/Creatinine Ratio 19.6 Glucose 72 L Calcium 9.5 Troponin I High Sens 44 B-Natriuretic Peptide 914.1 H Radiography Diagnostic Testing: Clinical Impression(s) from Imaging Studies Chest X-Ray 11/28/23 11:31 IMPRESSION: Findings may reflect congestive heart failure. Indeterminate round opacity projecting over the right upper lung which may be artifactual however cannot exclude a nodular opacity, consider chest CT for further evaluation. Electronically Signed: Kat Gamez MD at 12:38 EDT , Rhythm Strip Rhythm Strip: paced Rate: 64 Ectopy: PVC(s) EKG Initial EKG: Attestation: I personally reviewed and interpreted this EKG as follows: Interpretation: Paced Comments: AV dual paced rhythm with PVCs presents and what appears to be underlying atrial fibrillation Left axis deviation Widened QRS complex No significant change compared to prior EKG but does show PVCs now Prior EKG tracings: available for review Prior: Changed Discharge Plan Dx/Rx/DC Orders Clinical Impression: Acute exacerbation of chronic heart failure, MOURA (dyspnea on exertion), Hypokalemia Disposition Disposition: Acute Care [facility]
[2023-11-28] MEDS: Ipratropium/Albuterol Sulfate 3 ML AMPUL.NEB INHALATION (11:39)
--- NOTE | 2023-11-28 11:43 | EKG12_ITS ---
Test Reason : SOB Blood Pressure : / mmHG Vent. Rate : 064 BPM Atrial Rate : 357 BPM P-R Int : 200 ms QRS Dur : 182 ms QT Int : 500 ms P-R-T Axes : 111 -83 115 degrees QTc Int : 515 ms AV dual-paced rhythm with premature ventricular or aberrantly conducted complexes Abnormal ECG Confirmed by FABIOLA WILLETT, EDWIN ([id number]), film editor CHANNING LLOYD ([id number]) on 11/29/2023 2:47:22 PM Referred By: YUSEF/CHASE Confirmed By:EDWIN HICKS MD
[2023-11-28 12:15] LABS: BNP,B-Type NATRIURETIC PEPTIDE 914.1 pg/mL (0-100)
[2023-11-28] MEDS: Furosemide 40 MG/4 ML Vial IV ×2 (13:19→22:20)
[2023-11-28] MEDS: Potassium Chloride Oral Tablet 20 MEQ PO (13:19)
--- NOTE | 2023-11-28 13:21 | CT_ITS ---
STUDY: CT Chest W/O Contrast Injection 11/28/2023 2:09 PM REASON FOR EXAM: Male, 73 years old. abn CXR Individualized dose optimization techniques were used for this CT. TECHNIQUE: Transaxial imaging was performed without contrast material. COMPARISON: Chest x-ray the same day FINDINGS: There are degenerative changes of the shoulders. There is no pneumothorax. There is no demonstrated pleural abnormality. Pulmonary emphysema changes in the right upper lobe with overlying fibrosis. Minimal infiltrate periphery of the left upper lobe. Groundglass infiltrate in the right middle lobe small bilateral pleural effusions. There is a left sided pacemaker batterypack. There are multiple median sternotomy wires. Enlarged heart. There are calcifications of the coronary arteries. Normal mediastinum. Normal hilar regions. Normal pulmonary arteries. There is atherosclerotic calcification of the aortic arch with tortuosity and elongation of the aortic arch and descending thoracic aorta. There are multi-level degenerative changes of the thoracic spine. There are no acute findings of the upper abdomen. CT/Chest without Contrast IMPRESSION: Bilateral pneumonia. Consider atypical pneumonia. Small bilateral pleural effusions. Electronically Signed: Russ Banerjee MD at 14:12 EDT ,
--- NOTE | 2023-11-28 13:25 | PCM.HP.STD ---
[facility] - General General Date of Admission: 11/28/23 Date of Service: 11/28/23 Chief Complaint: Shortness of breath HPI Narrative MICKY ABDI, is a 73 M who presented to the emergency department at [facility] on 11/28/2023 with a chief complaint of shortness of breath. He indicated he has chronic shortness of breath and a chronic cough with chronic sputum production. He states his chronic cough is stable and his sputum production has not changed at all however his shortness of breath has gotten worse especially with exertion. This has been progressively getting worse over the last week or so. He has had no fever or chills. He admits to history of heart failure and it appears his last visit with the [facility] office was 06/09/2023. He had an echocardiogram done in April along with a stress test when he was admitted for similar symptoms. Echocardiogram at that time showed an EF of 35-40% with reduction in LV function from previous echo in 2022 as well as mild MR and mild TR. Stress test was minimally abnormal with previous inferior infarct and apical infarct as well as inferior apical ischemia and reduced ejection fraction. He does have a history of smoking but quit remotely and 1997. He was seen by his physician at the [facility] who prescribed an albuterol inhaler and cetirizine which he indicates has helped some but not entirely. He noted that his breathing was significantly worse today and that is why he came to the emergency department. He denies any weight gain. Drinks about 64 ounces of fluid daily at least. States he does not really watch his salt intake however his cooks [place] food and he does not feel there is a lot of sodium in that. He does have some intermittent nausea but no vomiting. Vital signs on presentation showed a temperature of 97.2, heart rate 82, respiratory 16, blood pressure 121/84 and pulse ox is 99% on room air. Upon exertion he became acutely short of breath and hypoxic at 86%. CBC is unremarkable and shows a normal white count and hemoglobin with no left shift. Chemistry panel shows mild hypokalemia with potassium of 3.3, stable CKD stage III AA with a serum creatinine of 1.58 and a glucose of 72. Troponin was 44 and his BNP was 914.1. At his previous admission in April for similar symptoms his BNP was noted to be markedly elevated as well. EKG shows AV paced rhythm with prolonged QTc and no ST-T wave changes concerning for acute ischemia. Chest x-ray is consistent with vascular congestion. COVID/flu/RSV are negative. He was treated with IV diuretics in the emergency department and admitted due to exertional hypoxia. [facility] Medical History CKD stage 3a, GFR 45-59 ml/min Cardiomyopathy Presence of cardiac pacemaker 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 atrioventricular block Peripheral neuropathy (HFpEF) heart failure with preserved ejection fraction History of DVT (deep vein thrombosis) BPH (benign prostatic hyperplasia) PAD (peripheral artery disease) CAD (coronary artery disease) WILLIAN treated with BiPAP Obesity Atrial flutter Hypothyroidism Atrial flutter by electrocardiogram CKD (chronic kidney disease) Aftercare following surgery of the circulatory system Thrombosis of left common femoral artery Left leg pain Palpitations NSVT (nonsustained ventricular tachycardia) History of non-ST elevation myocardial infarction (NSTEMI) Stroke CVA (cerebral vascular accident) Open wound of scalp Ischemic stroke Dizziness Essential (primary) hypertension Atherosclerosis of [place] coronary artery of [place] heart without angina pectoris Thyroid disorder Diabetes mellitus Hyperlipidemia Home Medications ?Medication ?Instructions ?Recorded ?Last Taken ?Type metformin 500 mg tablet 1,000 mg PO QHS DM 03/19/17 11/27/23 History nitroglycerin 0.4 mg sublingual 0.4 mg sublingual Q5-15M PRN chest 05/25/18 Unknown Rx tablet pain #90 tabs aspirin 81 mg chewable tablet 81 mg PO DAILY@0800 HEALTH 06/16/22 11/28/23 History MAINTENANCE ezetimibe 10 mg tablet (Zetia) 10 mg PO DAILY DM 06/16/22 11/28/23 History insulin human U-100 NPH-regulr 32 unit subcut QHS DM 06/16/22 11/27/23 History 70-30 mix 100 unit/mL subcutaneous susp (Novolin 70/30 U-100 Insulin) insulin human U-100 NPH-regulr 40 unit subcut DAILY DM 06/16/22 11/28/23 History 70-30 mix 100 unit/mL subcutaneous susp (Novolin 70/30 U-100 Insulin) empagliflozin 25 mg tablet 12.5 mg PO DAILY diabetes 11/24/22 11/28/23 History isosorbide mononitrate 60 mg 30 mg PO DAILY HEART 04/01/23 11/28/23 History tablet,extended release 24 hr metoprolol tartrate 25 mg tablet 12.5 mg PO BID HEART/BLOOD PRESSURE 04/01/23 11/28/23 History rivaroxaban 20 mg tablet (Xarelto) 20 mg PO QHS blood thinner 05/14/23 11/27/23 History tamsulosin 0.4 mg capsule 0.4 mg PO QHS prostate 05/14/23 11/27/23 History furosemide 40 mg tablet (Lasix) 40 mg PO DAILY fluid retention 06/03/23 11/28/23 History levothyroxine 200 mcg tablet 200 mcg PO DAILY 06/03/23 11/28/23 History (Euthyrox) albuterol sulfate 90 mcg/actuation 2 inh inhalation Q4H PRN sob 11/28/23 Unknown History aerosol inhaler cetirizine 10 mg tablet (24Hour 10 mg PO DAILY 11/28/23 11/28/23 History Allergy) losartan 100 mg tablet 100 mg PO DAILY 11/28/23 11/28/23 History Allergy/AdvReac Type Severity Reaction Status Date / Time atorvastatin (From Lipitor) AdvReac Severe mylagia Verified 11/28/23 10:13 lanolin AdvReac Severe Rash Verified 11/28/23 10:13 Family History Sister CAD (coronary artery disease) Diabetes Brother CAD (coronary artery disease) Father Asthma Mother Cancer lung Surgical History Hx of cardiac catheterization (~01/19/17) S/P coronary artery stent placement (~04/05/18) History of coronary artery bypass surgery (~01/21/17) Social History household members: spouse Smoking Status: Former smoker how long ago did patient quit smokin alcohol intake: never substance use type: does not use caffeine: Yes Type: coffee Number of servings: 3 what type of physical activity do you participate in: none seatbelt use: always do you feel safe at home: Yes ROS Constitutional Constitutional: Reports fatigue and weakness Eyes Eyes: Denies blurry vision, change in eye color, change in vision, discharge from eye(s), double vision, erythema, eye pain, loss of vision or other ENT HEENT: Denies abnormal hearing, dysphagia, ear pain, epistaxis, headache(s), hearing loss, nasal congestion, nasal discharge, post nasal drip, sinus pressure, sore throat or other Cardiovascular Cardiovascular: Reports dyspnea on exertion; Denies chest pain, claudication, edema, lightheadedness, orthopnea, palpitations, paroxysmal nocturnal dyspnea, rapid heart rate, syncope or other Respiratory/Chest Respiratory/Chest: Reports cough, dyspnea, excessive phlegm production and shortness of breath with exertion; Denies hemoptysis, productive cough, shortness of breath at rest, wheezing or other Gastrointestinal Gastrointestinal: Reports diarrhea and nausea; Denies abdominal pain, coffee ground emesis, constipation, dyspepsia, hematemesis, hematochezia, loose stools, melena, vomiting or other Genitourinary Genitourinary: Denies burning urination, difficulty urinating, dysuria, hematuria, nocturia, urinary frequency, urinary hesitancy, urinary incontinence, urinary urgency or other Musculoskeletal Musculoskeletal: Reports back pain, joint pain and joint stiffness; Denies arthralgias, joint swelling, myalgias, neck pain or other Neurologic Neurologic: Denies abnormal gait, abnormal speech, confusion, disequilibrium, dizziness, focal weakness, headache(s), numbness, paresthesias, seizure-like activity, seizures, syncope, tingling, tremor(s) or other Psychiatric Psychiatric: Denies anxiety, depression, homicidal ideation, suicidal ideation or other Endocrine Endocrinology: Denies change in body appearance, cold intolerance, excessive sweating, heat intolerance, polydipsia, polyuria or other Hematologic/Lymphatic Hematologic/Lymphatic: Reports easy bleeding and easy bruising; Denies anemia, lymphadenopathy or other Allergic/Immunologic Allergic/Immunologic: Denies rhinitis, hives, eczemia, asthma or other Vital Signs Vital Signs Vital Signs: 11/28/23 10:12 11/28/23 10:27 11/28/23 10:29 Temperature 97.2 F L Temperature Source Temporal Pulse Rate 82 Respiratory Rate 16 23 H Respiratory Effort Non-Labored Labored Respiratory Pattern Blood Pressure 121/84 H Blood Pressure Mean 96 Pulse Ox 99 94 Oxygen Delivery Method Room Air Room Air Room Air 11/28/23 10:30 11/28/23 10:52 11/28/23 11:22 Temperature Temperature Source Pulse Rate 80 75 Respiratory Rate 25 H 21 H Respiratory Effort Respiratory Pattern Blood Pressure 117/85 H 125/85 H Blood Pressure Mean 95 98 Pulse Ox 93 96 Oxygen Delivery Method Room Air Room Air Room Air 11/28/23 11:42 11/28/23 13:00 Temperature Temperature Source Pulse Rate 74 87 Respiratory Rate 18 16 Respiratory Effort Respiratory Pattern Normal Blood Pressure 116/95 H Blood Pressure Mean 102 Pulse Ox 92 Oxygen Delivery Method Room Air Physical Exam Const alert, oriented x3, no apparent distress and well nourished; Negative for healthy appearing Constitutional Narrative: Older, white male, sitting up in bed, on room air, no signs of respiratory distress, appears comfortable, nontoxic, at bedside General Appearance: cooperative HEENT normocephalic, head/scalp atraumatic, hearing grossly normal bilaterally and moist oral mucous membranes HEENT Narrative: Dentition is poor, Mallampati is 3, no thrush Eyes PERRL, EOMs intact bilaterally and conjunctivae normal Eyes Narrative: No scleral icterus Neck no lymphadenopathy, supple and No no JVD Neck Narrative: Trachea midline, no thyroid large meant, JVD is present-mild, positive hepatojugular reflux Resp normal respiratory effort, no retractions, no use of accessory muscles and clear to auscultation bilaterally Resp Narrative: Diminished at bases bilaterally with few scattered crackles Auscultation: crackles; Negative for rhonchi or wheezes Cardio regular rate, regular rhythm, S1 normal heart sound, S2 normal heart sound, no murmurs, no rub, no gallops and no clicks GI normal to inspection, nondistended, normoactive bowel sounds, soft to palpation and non-tender Extremity no clubbing, cyanosis or edema Extremity Narrative: Pedal and radial pulses are 2+ Skin skin turgor normal, no jaundice, no petechiae and no mottling Neuro oriented x3, moves all extremities and no focal motor deficits Speech: speech normal Psych affect normal Psych Narrative: Extremely pleasant, eye contact is good and patient interacts appropriately Results Lab / Micro Data 11/28/23 10:27 11/28/23 10:27 Labs: Laboratory Results - last 24 hr 11/28/23 10:27: WBC 9.1, RBC 5.67, Hgb 16.2, Hct 51.2, MCV 90.3, MCH 28.6, MCHC 31.6 L, RDW Std Deviation 54.1 H, RDW Coeff of [place] 17.1 H, Plt Count 209, MPV 11.7, Immature Gran % (Auto) 0.300, Neut % (Auto) 63.2, Lymph % (Auto) 26.5, [place] % (Auto) 6.3, Eos % (Auto) 2.8, Baso % (Auto) 0.9, Absolute Neuts (auto) 5.7, Absolute Lymphs (auto) 2.40, Nucleated RBC % 0, Sodium 138, Potassium 3.3 L, Chloride 102, Carbon Dioxide 32.0, Anion Gap 4 L, BUN 31 H, Creatinine 1.58 H, Est GFR (MDRD) Af Amer 56 L, Est GFR (MDRD) Non-Af 46 L, BUN/Creatinine Ratio 19.6, Glucose 72 L, Calcium 9.5, Troponin I High Sens 44, B-Natriuretic Peptide 914.1 H Micro: Microbiology 11/28/23 11:40 Mucosa - Nasopharyngeal SARS-CoV-2, Influenza & RSV (PCR) - Final Rhythm Strip Rhythm Strip: paced Rate: 64 Ectopy: PVC(s) Imaging Radiology Impression Chest X-Ray 11/28/23 11:31 IMPRESSION: Findings may reflect congestive heart failure. Indeterminate round opacity projecting over the right upper lung which may be artifactual however cannot exclude a nodular opacity, consider chest CT for further evaluation. Electronically Signed: Kat Gamez MD at 12:38 EDT , Assessment & Plan Assessment/Plan (1) Hypokalemia: (2) MOURA (dyspnea on exertion): (3) Acute on chronic HFrEF (heart failure with reduced ejection fraction): (4) Hypoxia: (5) Abnormal chest x-ray: PLAN: Plan Hypoxia secondary to acute on chronic HFrEF -Saturations stable on room air at rest however desats to 86% with exertion -Chest x-ray is consistent with volume overload and BNP is markedly elevated -Check echocardiogram -Most recent from 04/2023 showed an EF of 35 to 40% which was reduced compared to previous echo, mild MR and mild TR -Fluid restricted diet to 1750 cc daily -Sodium restricted diet -Strict I's and O's -Daily weights -Lasix 40 IV every 8 hours -Check TSH -Consult dietitian for assistance with discharge diet and education -[facility] at [facility] -Had stress test in April that was not entirely normal but no further invasive workup was recommended at that time -Check ambulatory pulse ox prior to discharge Abnormal chest x-ray -Check CT chest -Chest x-ray makes comment of a round opacity projecting over the right upper lung Hypokalemia -Replaced in the emergency department with 40 mill equivalents p.o. potassium -Recheck lab in a.m. with diuretics -Check a.m. magnesium and phosphorus level Generalized weakness/debility -PT/OT consultation -Case management/social work consultation for assistance with discharge planning CAD/essential hypertension/hyperlipidemia/ischemic cardiomyopathy -Status post CABG-January 2017 at [facility] with THRASHER to LAD, reverse SVG to the posterior lateral left ventricular branch, and reverse SVG to obtuse marginal -Also underwent angioplasty/PCI at [facility] to proximal ramus intermedius and mid left circumflex in March 2018 -Continue home aspirin -Continue home Jardiance -Continue home Zetia -Hold home Lasix and use IV as noted above -Continue home isosorbide mononitrate -Continue home losartan -Continue home metoprolol -Patient is not statin tolerant -Will recommend outpatient follow-up with cardiology after discharge Chronic cough -Highly suspect patient has COPD at baseline -No change in cough or sputum production at the time of admission -As needed albuterol -Continue home cetirizine -Needs outpatient PFTs -Recommend pulmonary follow-up after discharge History of sick sinus syndrome/paroxysmal atrial flutter -Status post apparent pacemaker placement -Continue home Xarelto -Continue home metoprolol CKD stage IIIa -Serum creatinine is at baseline -Monitor closely with aggressive diuresis DM-2 -Continue home Novolin 70/30 but decrease at bedtime dose from 32 to 22 units and a.m. dose from 40 to 30 units given hospitalization -SSI added -Check hemoglobin A1c -Accu-Cheks as ordered -Cardiac/carb controlled diet -Hold home metformin/continue home Jardiance BPH with obstruction -Continue home Flomax Hypothyroidism -Continue home levothyroxine -Check TSH History of tobacco abuse -Quit 1997 -Encourage ongoing cessation History of stroke -Continue home aspirin -Continue home Xarelto DVT prophylaxis -Continue Xarelto CODE STATUS -Full code as verified on admission Charges/Coding Visit Charges Inpatient E&M: 04836 Init Hosp L3
[2023-11-28 14:05] LABS: Thyroid Stim Hormone (TSH) 0.072 uIU/mL (0.358-3.740)
[2023-11-28 15:22] LABS: D-Dimer Quantitative (DVT/PE) 0.57 FEU/ug/m (0.27-0.49)
[2023-11-28] MEDS: Rivaroxaban 20 MG Tablet PO (16:57)
[2023-11-28 17:16] LABS: Bedside Glucose 138 mg/dL (74-106)
[2023-11-28] MEDS: Insulin Human 75/25 Kwickpen 22 UNIT SC (22:18)
[2023-11-28] MEDS: Tamsulosin HCl 0.4 MG Capsule PO (22:19)
[2023-11-28] MEDS: Metoprolol Tartrate 25 MG Tablet 12.5 MG PO (22:19)
[2023-11-28] MEDS: 0.9% Saline Lock 10 ML Syringe IV (22:21)
[2023-11-28 22:47] LABS: Bedside Glucose 210 mg/dL (74-106)
[2023-11-29] VITALS (8 sets, daily range): BP systolic 104–123; BP diastolic 58–87; PULSE 60–92; RESP 15–18; TEMP 36.6–37.1; O2SAT 94–95; BMI 29.8
--- NOTE | 2023-11-29 05:55 | ECHOD_ITS ---
Reason For Study: CHF Procedure This was a 2D Doppler, Color Flow transthoracic echocardiogram. The study was technically difficult. Patient states they had a reaction to definity. Exam performed portable in patient room. Left Ventricle Normal LV size. The left ventricular ejection fraction is 25 %. There is moderate to severe global hypokinesis of the left ventricle. Right Ventricle Normal RV size. ICD or pacer leads identified within the right ventricle. Normal systolic function. Atria Normal left atrium. Normal right atrium. Mitral Valve Normal mitral valve. Mild (1+) eccentric mitral valve insufficiency. Tricuspid Valve Normal tricuspid valve. Mild (1+) tricuspid valve insufficiency. Pulmonary artery systolic pressure is 30 mmHg. Pulmonic Valve Normal pulmonic valve. Great Vessels Normal aortic root. The pulmonary artery is normal size. Normal inferior vena cava. Pericardium/Pleural No pericardial effusion. MMode/2D Measurements & Calculations LVIDd: 6.1 cm IVSd: 1.2 cm LVOT diam: 2.2 cm LVIDs: 6.0 cm LVPWd: 0.79 cm LVOT area: 3.8 cm2 RVDd: 3.3 cm FS: 2.0 % Ao root diam: 3.6 cm LAV(MOD-sp4): 118.2 ml LVAd ap4: 31.7 cm2 LVLd ap4: 8.1 cm EDV(MOD-sp4): 102.7 ml EDV(sp4-el): 105.9 ml LVAs ap4: 28.9 cm2 LVLs ap4: 8.5 cm ESV(MOD-sp4): 82.9 ml ESV(sp4-el): 83.6 ml EF(MOD-sp4): 19.3 % EF(sp4-el): 21.0 % SV(MOD-sp4): 19.9 ml SV(sp4-el): 22.3 ml LA A4 area: 31.4 cm2 LA dimension(2D): 5.1 cm RA A4 area: 21.6 cm2 Doppler Measurements & Calculations MV E max re: 43.4 cm/sec Ao V2 max: 76.5 cm/sec LV V1 max: 81.6 cm/sec Ao max P.4 mmHg LV V1 max P.7 mmHg Ao V2 mean: 54.3 cm/sec LV V1 mean P.4 mmHg Ao mean P.3 mmHg LV V1 mean: 54.9 cm/sec Ao V2 VTI: 11.1 cm LV V1 VTI: 12.9 cm AV (velocity ratio): 1.2 JOSEPH(I,D): 4.4 cm2 JOSEPH(V,D): 4.0 cm2 SV(LVOT): 49.1 ml PA V2 max: 53.6 cm/sec TR max re: 255.8 cm/sec TR max P.2 mmHg ECHO/Echo Complete Interpretation Summary The left ventricular ejection fraction is 25 %. Normal LV size. There is moderate to severe global hypokinesis of the left ventricle. Mild (1+) eccentric mitral valve insufficiency. Mild (1+) tricuspid valve insufficiency. Pulmonary artery systolic pressure is 30 mmHg. Ordering Physician: Yola Hummel Referring Physician: [facility] Performed By: Lily Parish RCS
[2023-11-29] MEDS: Levothyroxine 100 MCG Tablet 200 MCG PO (06:24)
[2023-11-29] MEDS: Furosemide 40 MG/4 ML Vial IV ×2 (06:24→13:42)
[2023-11-29] MEDS: 0.9% Saline Lock 10 ML Syringe IV ×3 (06:24→13:42)
[2023-11-29 06:52] LABS: Bedside Glucose 144 mg/dL (74-106)
[2023-11-29 07:17] LABS: Absolute Lymphocyte Count 1.59 X10^3/uL (0.83-4.51); Absolute Neutrophil Count 5.6 X10^3/uL (2.0-7.7); Basophil# 0.07 X10^3/uL; Basophil% 0.8 % (0-1); Eosinophil# 0.29 X10^3/uL; Eosinophils% 3.5 % (0-5); Hematocrit 48.1 % (40-54); Hemoglobin 15.3 g/dL (13.0-16.5); Lymphocyte # 1.59 X10^3/ul (0.83-4.51); Lymphocyte % 19.1 % (19-41); Mean Corp Hgb Conc 31.8 g/dL (32-36); Mean Corpuscular Hgb 28.2 pg (27.0-32.0); Mean Corpuscular Volume 88.6 fL (80-94); Mean Platelet Vol. 11.7 fl (6.2-12.0); Monocyte# 0.69 X10^3/uL; Monocyte% 8.3 % (0-10); NRBC Flagged by Analyzer 0 % (0-5); Neutrophil # 5.64 X10^3/uL (2.7-7.7); Neutrophil % 67.8 % (47-70); Platelet Count 197 K/mm3 (150-450); RBC Distribution Width CV 16.4 % (11.6-14.6); RBC Distribution Width SD 52.7 fl (35.1-43.9); Red Blood Count 5.43 M/mm3 (4.6-6.2); White Blood Count 8.3 K/mm3 (4.4-11.0)
[2023-11-29 07:48] LABS: ALB/GLOB Ratio 0.6 RATIO (0.9-2.4); AST(SGOT) 15 U/L (15-37); Alanine Aminotransfer ALT/SGPT 14 U/L (16-61); Albumin, Serum 2.9 g/dL (3.2-5.0); Alkaline Phosphatase 73 U/L (45-117); Anion Gap 11 (5-15); BUN 35 mg/dL (7-18); BUN/Creat Ratio 22.6 RATIO (10-20); Calcium,Total 9.5 mg/dL (8.5-10.1); Chloride 103 mmol/L (98-107); Creatinine, Serum 1.55 mg/dL (0.70-1.30); EST Glomerular Filtration Rate 47 mL/min (>60); Est Glom Filt Rate - Afr Amer 57 mL/min (>60); Globulin 5.1 g/dL (2.2-4.2); Glucose 155 mg/dL (74-106); Magnesium 2.1 mg/dL (1.6-2.6); Phosphorus 3.8 mg/dL (2.5-4.9); Potassium 3.5 mmol/L (3.5-5.1); Sodium Level 139 mmol/L (136-145)
[2023-11-29 08:20] LABS: Hemoglobin A1c 6.1 % (3.8-5.6)
[2023-11-29] MEDS: Isosorbide Mononitrate 30 MG Tablet PO (09:10)
[2023-11-29] MEDS: Insulin Human 75/25 Kwickpen 30 UNIT SC (09:10)
[2023-11-29] MEDS: Ezetimibe 10 MG Tablet PO (09:10)
[2023-11-29] MEDS: Aspirin 81 MG TAB.CHEW PO (09:10)
[2023-11-29] MEDS: Losartan Potassium 100 MG Tablet PO (09:10)
[2023-11-29] MEDS: Empagliflozin 25 MG Tablet 12.5 MG PO (09:10)
[2023-11-29] MEDS: Loratadine 10 MG Tablet PO (09:11)
[2023-11-29] MEDS: Metoprolol Tartrate 25 MG Tablet 12.5 MG PO ×2 (09:11→21:45)
--- NOTE | 2023-11-29 09:48 | PN.HOSP_ITS ---
Reason for Visit Reason for Visit: Diagnoses Hypokalemia (11/28/23) Acute on chronic systolic (congestive) heart failure (11/28/23) Other forms of dyspnea (11/28/23) Hypoxemia (11/28/23) Abnormal findings on diagnostic imaging of other specified body structures (11/28/23) Subjective Subjective Still with dyspnea on exertion. Objective Data Objective Data Vital Signs: Vital Signs Temp Pulse Resp BP Pulse Ox O2 Del Method 37.1 C 77 18 118/87 H 95 Room Air 11/29/23 09:10 11/29/23 09:11 11/29/23 09:10 11/29/23 09:10 11/29/23 09:10 11/29/23 09:10 Oxygen Delivery Method Room Air Weight: 102.5 kg Body Mass Index (BMI) 29.8 Intake & Output: Intake and Output for Last 24 Hours 11/27/23 11/28/23 11/29/23 23:59 23:59 23:59 Intake Total 500 / 620 240 / 240 Balance 500 / 620 240 / 240 Lab / Micro Data 11/29/23 06:56 11/29/23 06:56 Labs: Laboratory Results - last 24 hr 11/28/23 10:27: WBC 9.1, RBC 5.67, Hgb 16.2, Hct 51.2, MCV 90.3, MCH 28.6, MCHC 31.6 L, RDW Std Deviation 54.1 H, RDW Coeff of [place] 17.1 H, Plt Count 209, MPV 11.7, Immature Gran % (Auto) 0.300, Neut % (Auto) 63.2, Lymph % (Auto) 26.5, [place] % (Auto) 6.3, Eos % (Auto) 2.8, Baso % (Auto) 0.9, Absolute Neuts (auto) 5.7, Absolute Lymphs (auto) 2.40, Nucleated RBC % 0, D-Dimer Quant (PE/DVT) 0.57 H*, Sodium 138, Potassium 3.3 L, Chloride 102, Carbon Dioxide 32.0, Anion Gap 4 L, BUN 31 H, Creatinine 1.58 H, Est GFR (MDRD) Af Amer 56 L, Est GFR (MDRD) Non- Af 46 L, BUN/Creatinine Ratio 19.6, Glucose 72 L, Calcium 9.5, Troponin I High Sens 44, B-Natriuretic Peptide 914.1 H, TSH 0.072 L 11/28/23 16:50: POC Glucose 138 H 11/28/23 22:17: POC Glucose 210 H 11/29/23 06:22: POC Glucose 144 H 11/29/23 06:56: WBC 8.3, RBC 5.43, Hgb 15.3, Hct 48.1, MCV 88.6, MCH 28.2, MCHC 31.8 L, RDW Std Deviation 52.7 H, RDW Coeff of [place] 16.4 H, Plt Count 197, MPV 11.7, Immature Gran % (Auto) 0.500, Neut % (Auto) 67.8, Lymph % (Auto) 19.1, [place] % (Auto) 8.3, Eos % (Auto) 3.5, Baso % (Auto) 0.8, Absolute Neuts (auto) 5.6, Absolute Lymphs (auto) 1.59, Nucleated RBC % 0, Sodium 139, Potassium 3.5, Chloride 103, Carbon Dioxide 25.0, Anion Gap 11, BUN 35 H, Creatinine 1.55 H, Estim Creat Clear Calc 53.40, Est GFR (MDRD) Af Amer 57 L, Est GFR (MDRD) Non-Af 47 L, BUN/Creatinine Ratio 22.6 H, Glucose 155 H, Hemoglobin A1c 6.1 H, Calcium 9.5, Phosphorus 3.8, Magnesium 2.1, Total Bilirubin 1.10 H, AST 15, ALT 14 L, Alkaline Phosphatase 73, Total Protein 8.0, Albumin 2.9 L, Globulin 5.1 H, A lbumin/Globulin Ratio 0.6 L Micro: Microbiology 11/28/23 11:40 Mucosa - Nasopharyngeal SARS-CoV-2, Influenza & RSV (PCR) - Final Radiography Diagnostic Testing: Radiology Impression Chest X-Ray 11/28/23 11:31 IMPRESSION: Findings may reflect congestive heart failure. Indeterminate round opacity projecting over the right upper lung which may be artifactual however cannot exclude a nodular opacity, consider chest CT for further evaluation. Electronically Signed: Kat Gamez MD at 12:38 EDT , Chest CT 11/28/23 13:21 IMPRESSION: Bilateral pneumonia. Consider atypical pneumonia. Small bilateral pleural effusions. Electronically Signed: Russ Banerjee MD at 14:12 EDT Reading Location ID and State: [facility] / [place] , Service support , Rhythm Strip Rhythm Strip: paced Rate: 64 Ectopy: PVC(s) Physical Exam Const alert and no apparent distress HEENT head/scalp atraumatic and moist oral mucous membranes Resp normal respiratory effort, no retractions, no use of accessory muscles and clear to auscultation bilaterally Cardio regular rate, regular rhythm, S1 normal heart sound and S2 normal heart sound GI normal to inspection, nondistended, normoactive bowel sounds, soft to palpation, non-tender and non-distended Neuro Sensorium / Orientation: awake and alert Assessment & Plan Assessment/Plan (1) Hypokalemia: (2) MOURA (dyspnea on exertion): (3) Acute on chronic HFrEF (heart failure with reduced ejection fraction): (4) Hypoxia: (5) Abnormal chest x-ray: PLAN: Plan Pneumonia, suspected pneumococcal * CT shows bilateral pneumonia. * Start antibiotics with ceftriaxone and azithromycin. Check sputum culture, PEP, check Streptococcus and Legionella antigens. Suspected COPD exacerbation, acute * Patient never been diagnosed with COPD but patient does have emphysematous changes on his CAT scan. * Continue with bronchodilators and add prednisone. * Patient is a remote smoker but I did advise that he follow-up with pulmonology to have pulmonary function test to evaluate if he does have indeed have COPD. Chronic heart failure with reduced ejection fraction * Patient with very small pleural effusions on CAT scan. No lower extremity edema. Reviewing the CAT scan does not show any volume overload. Will discontinue the IV furosemide and resume his daily dosing of 40 mg of furosemide. * Continue with losartan and isosorbide. Generalized weakness/debility * PT/OT consultation. -Case management/social work consultation for assistance with discharge planning Chronic conditions: * CAD/essential hypertension/hyperlipidemia/ischemic cardiomyopathy-Status post CABG-January 2017 at [facility] with THRASHER to LAD, reverse SVG to the posterior lateral left ventricular branch, and reverse SVG to obtuse marginal- Also underwent angioplasty/PCI at [facility] to proximal ramus intermedius and mid left circumflex in March 2018-Continue home aspirin- Continue home Jardiance-Continue home Zetia-Hold home Lasix and use IV as noted above-Continue home isosorbide mononitrate-Continue home losartan- Continue home metoprolol-Patient is not statin tolerant-Will recommend outpatient follow-up with cardiology after discharge * Chronic cough-Highly suspect patient has COPD at baseline-No change in cough or sputum production at the time of admission-As needed albuterol-Continue home cetirizine-Needs outpatient PFTs-Recommend pulmonary follow-up after discharge * History of sick sinus syndrome/paroxysmal atrial flutter-Status post apparent pacemaker placement-Continue home Xarelto-Continue home metoprolol * CKD stage IIIa-Serum creatinine is at baseline-Monitor closely with aggressive diuresis * [id number] home Novolin 70/30 but decrease at bedtime dose from 32 to 22 units and a.m. 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 TSH 0.072. Check free T4 and T3. * history of stroke-Continue home aspirin-Continue home Xarelto DVT prophylaxis: Not indicated is already on rivaroxaban -Continue Xarelto CODE STATUS: Full code Did interdisciplinary rounds today with nursing, case management and social work. Greater than 55 minutes of which greater than 50% of time was discussing in rounds, discussing at bedside with the patient. Charges/Coding Visit Charges Inpatient E&M: 79429 [facility] L3
[2023-11-29 10:25] LABS: Free T3 2.3 pg/mL (2.18-3.98); T4 Free Direct 1.66 ng/dL (0.76-1.46)
[2023-11-29] MEDS: guaiFENesin 600 MG Tablet PO ×2 (10:46→21:45)
[2023-11-29] MEDS: Ceftriaxone 1 GM/50 ML BAG IV (10:46)
--- NOTE | 2023-11-29 11:23 | CASEMGMT ---
KATIE HERNÁNDEZ Assessment Face to Face with patient for initial transition planning/care coordination assessment. KATIE HERNÁNDEZ introduced self and role at [facility], pt voices understanding. Pt is A&Ox4 and is resting comfortably in bed and is calm. Care providers, pharmacy, and demographics verified. Admitting dx: HF LACE Strata: 3 PCP: Lina ([facility]) Specialists: VIRIDIANA Preferred Pharmacy: [facility] Insurance: [place], [facility] A Only, [place] Prescription Benefit: Yes LNOK: Hank Jimenez (W) Living Arrangements: Pt lives with his in a 2 story townhouse with one step to enter ADLs/IADLs: Ind Transportation: Self, DME: CPAP, Pulse Ox, BGM and supplies, FWW, BP Monitor. Denies needs HHC/SNF: Hx of HHC through [facility] in 2017 after cardiac surgery. Denies SNF Pt?s goal: Home Plan: Home no needs. 6-Click is 24. Pt takes Xarelto at home. Pt denies the need for HHC, OP Tx, SNF, CCN/ pt Link. Pt states that he feels safe discharging home with his once he is medically ready and denies further questions or concerns at this time. Haile Melendez RN, CM
[2023-11-29] MEDS: Azithromycin 500 MG in Dextrose 5%-Water (250mL Bag) 250 ML 250 MG IV (11:31)
[2023-11-29 11:53] LABS: Bedside Glucose 109 mg/dL (74-106)
[2023-11-29] MEDS: Rivaroxaban 20 MG Tablet PO (16:44)
[2023-11-29 17:02] LABS: Bedside Glucose 154 mg/dL (74-106)
[2023-11-29] MEDS: predniSONE 20 MG Tablet 60 MG PO (17:06)
[2023-11-29] MEDS: Ipratropium/Albuterol Sulfate 3 ML AMPUL.NEB INHALATION (19:17)
[2023-11-29] MEDS: Tamsulosin HCl 0.4 MG Capsule PO (21:47)
[2023-11-29] MEDS: Insulin Human 75/25 Kwickpen 22 UNIT SC (22:39)
[2023-11-30] VITALS (8 sets, daily range): BP systolic 108–130; BP diastolic 70–83; PULSE 56–85; RESP 12–20; TEMP 36.4–36.6; O2SAT 90–95; BMI 27.0
[2023-11-30 00:40] LABS: Bedside Glucose 231 mg/dL (74-106)
[2023-11-30 06:14] LABS: Absolute Lymphocyte Count 1.07 X10^3/uL (0.83-4.51); Absolute Neutrophil Count 7.6 X10^3/uL (2.0-7.7); Basophil# 0.01 X10^3/uL; Basophil% 0.1 % (0-1); Eosinophil# 0.01 X10^3/uL; Eosinophils% 0.1 % (0-5); Hematocrit 47.6 % (40-54); Hemoglobin 15.3 g/dL (13.0-16.5); Lymphocyte # 1.07 X10^3/ul (0.83-4.51); Lymphocyte % 11.9 % (19-41); Mean Corp Hgb Conc 32.1 g/dL (32-36); Mean Corpuscular Hgb 28.1 pg (27.0-32.0); Mean Corpuscular Volume 87.5 fL (80-94); Mean Platelet Vol. 11.6 fl (6.2-12.0); Monocyte# 0.26 X10^3/uL; Monocyte% 2.9 % (0-10); NRBC Flagged by Analyzer 0 % (0-5); Neutrophil # 7.55 X10^3/uL (2.7-7.7); Neutrophil % 84.1 % (47-70); Platelet Count 208 K/mm3 (150-450); RBC Distribution Width CV 16.3 % (11.6-14.6); RBC Distribution Width SD 51.3 fl (35.1-43.9); Red Blood Count 5.44 M/mm3 (4.6-6.2)
[2023-11-30 06:33] LABS: Anion Gap 7 (5-15); BUN 42 mg/dL (7-18); Calcium,Total 9.6 mg/dL (8.5-10.1); Chloride 105 mmol/L (98-107); Creatinine, Serum 1.75 mg/dL (0.70-1.30); EST Glomerular Filtration Rate 41 mL/min (>60); Est Glom Filt Rate - Afr Amer 49 mL/min (>60); Estimated Creatinine Clearance 42.49 ml/min; Glucose 182 mg/dL (74-106); Potassium 3.6 mmol/L (3.5-5.1); Sodium Level 137 mmol/L (136-145)
[2023-11-30] MEDS: Levothyroxine 100 MCG Tablet 200 MCG PO (06:35)
[2023-11-30] MEDS: Insulin Lispro 100 UNIT/ML INSULN.PEN SC ×2 (06:41→11:25)
[2023-11-30 07:02] LABS: Bedside Glucose 186 mg/dL (74-106)
[2023-11-30] MEDS: Ipratropium/Albuterol Sulfate 3 ML AMPUL.NEB INHALATION ×2 (07:28→12:57)
[2023-11-30] MEDS: 0.9% Saline Lock 10 ML Syringe IV (08:42)
[2023-11-30] MEDS: Ceftriaxone 1 GM/50 ML BAG IV (08:42)
[2023-11-30] MEDS: Insulin Human 75/25 Kwickpen 30 UNIT SC (08:44)
[2023-11-30] MEDS: Aspirin 81 MG TAB.CHEW PO (08:45)
[2023-11-30] MEDS: Empagliflozin 25 MG Tablet 12.5 MG PO (08:45)
[2023-11-30] MEDS: Metoprolol Tartrate 25 MG Tablet 12.5 MG PO (08:46)
[2023-11-30] MEDS: predniSONE 20 MG Tablet 40 MG PO (08:46)
[2023-11-30] MEDS: Ezetimibe 10 MG Tablet PO (08:46)
[2023-11-30] MEDS: guaiFENesin 600 MG Tablet PO (08:46)
[2023-11-30] MEDS: Isosorbide Mononitrate 30 MG Tablet PO (08:47)
[2023-11-30] MEDS: Furosemide 40 MG Tablet PO (08:48)
[2023-11-30] MEDS: Loratadine 10 MG Tablet PO (08:48)
[2023-11-30] MEDS: Losartan Potassium 100 MG Tablet PO (08:48)
--- NOTE | 2023-11-30 08:59 | PCM.PN.HOSP ---
Reason for Visit Reason for Visit: Diagnoses Hypokalemia (11/28/23) Acute on chronic systolic (congestive) heart failure (11/28/23) Other forms of dyspnea (11/28/23) Hypoxemia (11/28/23) Abnormal findings on diagnostic imaging of other specified body structures (11/28/23) Subjective Subjective Breathing better. Objective Data Objective Data Vital Signs: Vital Signs Temp Pulse Resp BP Pulse Ox O2 Del Method 36.4 C L 58 L 12 108/83 H 93 Room Air 11/30/23 08:40 11/30/23 08:46 11/30/23 08:40 11/30/23 08:40 11/30/23 08:40 11/30/23 08:40 Oxygen Delivery Method Room Air Weight: 92.9 kg Body Mass Index (BMI) 27.0 Intake & Output: Intake and Output for Last 24 Hours 11/28/23 11/29/23 11/30/23 23:59 23:59 23:59 Intake Total 500 / 620 1525 / 1645 240 / 240 Balance 500 / 620 1525 / 1645 240 / 240 Lab / Micro Data 11/30/23 05:38 11/30/23 05:38 Labs: Laboratory Results - last 24 hr 11/29/23 06:56: Free T4 1.66 H, Free T3 pg/dL 2.3 11/29/23 11:34: POC Glucose 109 H 11/29/23 16:43: POC Glucose 154 H 11/29/23 21:52: POC Glucose 231 H 11/30/23 05:38: WBC 9.0, RBC 5.44, Hgb 15.3, Hct 47.6, MCV 87.5, MCH 28.1, MCHC 32.1, RDW Std Deviation 51.3 H, RDW Coeff of [place] 16.3 H, Plt Count 208, MPV 11.6, Immature Gran % (Auto) 0.900, Neut % (Auto) 84.1 H, Lymph % (Auto) 11.9 L, [place] % (Auto) 2.9, Eos % (Auto) 0.1, Baso % (Auto) 0.1, Absolute Neuts (auto) 7.6, Absolute Lymphs (auto) 1.07, Nucleated RBC % 0, Sodium 137, Potassium 3.6, Chloride 105, Carbon Dioxide 25.0, Anion Gap 7, BUN 42 H, Creatinine 1.75 H, Estim Creat Clear Calc 42.49, Est GFR (MDRD) Af Amer 49 L, Est GFR (MDRD) Non-Af 41 L, BUN/Creatinine Ratio 24.0 H, Glucose 182 H, Calcium 9.6 11/30/23 06:31: POC Glucose 186 H Micro: Microbiology 11/29/23 11:05 Sputum, Expectorated/Coughed Gram Stain - Final 11/29/23 11:05 Sputum, Expectorated/Coughed Respiratory Culture - Preliminary Appears to be normal respiratory tolu. Further studies to follow. 11/29/23 13:47 Urine, Clean Catch Legionella Antigen - Final 11/29/23 13:47 Urine, Clean Catch Streptococcus pneumoniae Antigen (M - Final 11/28/23 11:40 Mucosa - Nasopharyngeal SARS-CoV-2, Influenza & RSV (PCR) - Final Radiography Diagnostic Testing: Radiology Impression Echocardiogram 11/29/23 05:55 Interpretation Summary The left ventricular ejection fraction is 25 %. Normal LV size. There is moderate to severe global hypokinesis of the left ventricle. Mild (1+) eccentric mitral valve insufficiency. Mild (1+) tricuspid valve insufficiency. Pulmonary artery systolic pressure is 30 mmHg. Ordering Physician: Yola Hummel Referring Physician: [facility] Performed By: Lily Parish RCS Rhythm Strip Rhythm Strip: paced Rate: 64 Ectopy: PVC(s) Physical Exam Const alert and no apparent distress HEENT head/scalp atraumatic and moist oral mucous membranes Resp normal respiratory effort, no retractions, no use of accessory muscles and clear to auscultation bilaterally Cardio regular rate, regular rhythm, S1 normal heart sound and S2 normal heart sound GI normal to inspection, nondistended, normoactive bowel sounds, soft to palpation, non-tender and non-distended Neuro Sensorium / Orientation: awake and alert Assessment & Plan Assessment/Plan (1) Hypokalemia: (2) MOURA (dyspnea on exertion): (3) Acute on chronic HFrEF (heart failure with reduced ejection fraction): (4) Hypoxia: (5) Abnormal chest x-ray: PLAN: Plan Pneumonia, suspected pneumococcal CT shows bilateral pneumonia. Start antibiotics with ceftriaxone and azithromycin. Will discharge with Augmentin Strep and Legionella antigens negative. Sputum culture showing normal respiratory tolu Ambulatory pulse ox performed and patient did not drop below 90%, therefore, oxygen will not be required upon discharge. Suspected COPD exacerbation, acute Patient never been diagnosed with COPD but patient does have emphysematous changes on his CAT scan. Continue with bronchodilators and add prednisone. Patient is a remote smoker but I did advise that he follow-up with pulmonology to have pulmonary function test to evaluate if he does have indeed have COPD. Patient states that he is going to be following up at the [place] where it is already in the works for him to have more formal lung evaluation, presumably PFTs. Chronic heart failure with reduced ejection fraction Patient with very small pleural effusions on CAT scan. No lower extremity edema. Reviewing the CAT scan does not show any volume overload. Will discontinue the IV furosemide and resume his daily dosing of 40 mg of furosemide. Continue with losartan and isosorbide. Generalized weakness/debility PT/OT consultation. -Case management/social work consultation for assistance with discharge planning Chronic conditions: CAD/essential hypertension/hyperlipidemia/ischemic cardiomyopathy-Status post CABG-January [address] [facility] with THRASHER to LAD, reverse SVG to the posterior lateral left ventricular branch, and reverse SVG to obtuse marginal-Also underwent angioplasty/PCI at [facility] to proximal ramus intermedius and mid left circumflex in March 2018-Continue home aspirin-Continue home Jardiance-Continue home Zetia-Hold home Lasix and use IV as noted above-Continue home isosorbide mononitrate-Continue home losartan-Continue home metoprolol-Patient is not statin tolerant-Will recommend outpatient follow-up with cardiology after discharge Chronic cough-Highly suspect patient has COPD at baseline-No change in cough or sputum production at the time of admission-As needed albuterol-Continue home cetirizine-Needs outpatient PFTs-Recommend pulmonary follow-up after discharge History of sick sinus syndrome/paroxysmal atrial flutter-Status post apparent pacemaker placement-Continue home Xarelto-Continue home metoprolol CKD stage IIIa-Serum creatinine is at baseline-Monitor closely with aggressive diuresis [id number] home Novolin 70/30 but decrease at bedtime dose from 32 to 22 units and a.m. 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 TSH 0.072. Check free T4 and T3. history of stroke-Continue home aspirin-Continue home Xarelto DVT prophylaxis: Not indicated is already on rivaroxaban CODE STATUS: Full code [place] home
[2023-11-30] MEDS: Azithromycin 500 MG in Dextrose 5%-Water (250mL Bag) 250 ML 250 MG IV (09:33)
--- NOTE | 2023-11-30 11:43 | DS.PCM_ITS ---
Providers Date of Admission: 11/28/23 Primary Care Physician: [facility] Reason For Visit: ACUTE ON CHRONIC HEART FAILURE WITH REDUCED Diagnosis Discharge Diagnosis (1) Hypokalemia: Status: Acute Code(s): E87.6 - Hypokalemia (2) MOURA (dyspnea on exertion): Status: Acute Code(s): R06.09 - Other forms of dyspnea (3) Acute on chronic HFrEF (heart failure with reduced ejection fraction): Status: Chronic Code(s): I50.23 - Acute on chronic systolic (congestive) heart failure (4) Hypoxia: Status: Acute Code(s): R09.02 - Hypoxemia (5) Abnormal chest x-ray: Status: Acute Code(s): R93.89 - Abnormal findings on diagnostic imaging of other specified body structures Plan Pneumonia, suspected pneumococcal * CT shows bilateral pneumonia. * Start antibiotics with ceftriaxone and azithromycin. Will discharge with Augmentin * Strep and Legionella antigens negative. Sputum culture showing normal respiratory tolu * Ambulatory pulse ox performed and patient did not drop below 90%, therefore, oxygen will not be required upon discharge. Suspected COPD exacerbation, acute * Patient never been diagnosed with COPD but patient does have emphysematous changes on his CAT scan. * Continue with bronchodilators and add prednisone. * Patient is a remote smoker but I did advise that he follow-up with pulmonology to have pulmonary function test to evaluate if he does have indeed have COPD. Patient states that he is going to be following up at the [facility] where it is already in the works for him to have more formal lung evaluation, presumably PFTs. Chronic heart failure with reduced ejection fraction * Patient with very small pleural effusions on CAT scan. No lower extremity edema. Reviewing the CAT scan does not show any volume overload. Will discontinue the IV furosemide and resume his daily dosing of 40 mg of furosemide. * Continue with losartan and isosorbide. Generalized weakness/debility * PT/OT consultation. -Case management/social work consultation for assistance with discharge planning Chronic conditions: * CAD/essential hypertension/hyperlipidemia/ischemic cardiomyopathy-Status post CABG-January 2017 at [facility] with THRASHER to LAD, reverse SVG to the posterior lateral left ventricular branch, and reverse SVG to obtuse marginal- Also underwent angioplasty/PCI at [facility] to proximal ramus intermedius and mid left circumflex in March 2018-Continue home aspirin- Continue home Jardiance-Continue home Zetia-Hold home Lasix and use IV as noted above-Continue home isosorbide mononitrate-Continue home losartan- Continue home metoprolol-Patient is not statin tolerant-Will recommend outpatient follow-up with cardiology after discharge * Chronic cough-Highly suspect patient has COPD at baseline-No change in cough or sputum production at the time of admission-As needed albuterol-Continue home cetirizine-Needs outpatient PFTs-Recommend pulmonary follow-up after discharge * History of sick sinus syndrome/paroxysmal atrial flutter-Status post apparent pacemaker placement-Continue home Xarelto-Continue home metoprolol * CKD stage IIIa-Serum creatinine is at baseline-Monitor closely with aggressive diuresis * UG-8-Qxcxxnei home Novolin 70/30 but decrease at bedtime dose from 32 to 22 units and a.m. 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 TSH 0.072. Check free T4 and T3. * history of stroke-Continue home aspirin-Continue home Xarelto DVT prophylaxis: Not indicated is already on rivaroxaban CODE STATUS: Full code DC home Medications at Discharge Home Medications metformin 500 mg tablet 1,000 mg PO QHS DM 03/19/17 nitroglycerin 0.4 mg sublingual tablet 0.4 mg sublingual Q5-15M PRN chest pain #90 tabs 05/25/18 aspirin 81 mg chewable tablet 81 mg PO DAILY@0800 HEALTH MAINTENANCE 06/16/22 ezetimibe 10 mg tablet (Zetia) 10 mg PO DAILY DM 06/16/22 insulin human U-100 NPH-regulr 70-30 mix 100 unit/mL subcutaneous susp (Novolin 70/30 U-100 Insulin) 32 unit subcut QHS DM 06/16/22 insulin human U-100 NPH-regulr 70-30 mix 100 unit/mL subcutaneous susp (Novolin 70/30 U-100 Insulin) 40 unit subcut DAILY DM 06/16/22 empagliflozin 25 mg tablet 12.5 mg PO DAILY diabetes 11/24/22 isosorbide mononitrate 60 mg tablet,extended release 24 hr 30 mg PO DAILY HEART 04/01/23 metoprolol tartrate 25 mg tablet 12.5 mg PO BID HEART/BLOOD PRESSURE 04/01/23 rivaroxaban 20 mg tablet (Xarelto) 20 mg PO QHS blood thinner 05/14/23 tamsulosin 0.4 mg capsule 0.4 mg PO QHS prostate 05/14/23 furosemide 40 mg tablet (Lasix) 40 mg PO DAILY fluid retention 06/03/23 levothyroxine 200 mcg tablet (Euthyrox) 200 mcg PO DAILY 06/03/23 albuterol sulfate 90 mcg/actuation aerosol inhaler 2 inh inhalation Q4H PRN sob 11/28/23 cetirizine 10 mg tablet (24Hour Allergy) 10 mg PO DAILY 11/28/23 losartan 100 mg tablet 100 mg PO DAILY 11/28/23 amoxicillin 875 mg-potassium clavulanate 125 mg tablet 1 tab PO BID #10 tabs 11/30/23 guaifenesin 600 mg tablet, extended release 12 hr (Mucinex) 600 mg PO BID #10 tabs 11/30/23 prednisone 20 mg tablet 40 mg (2 x 20 mg) PO BREAKFAST #8 tabs 11/30/23 Hospital Course Operations None Procedures None Summary of Care Provided Minutes Spent on Discharge: 32 Hospital Course: Patient presents with shortness of breath. Initially felt to be due to CHF exacerbation, however CAT scan did not show any pulmonary vascular congestion but did show bilateral pneumonia. Additionally he also had some emphysematous changes. Patient will be treated with azithromycin and ceftriaxone while he was in the hospital and also started on prednisone. He is feeling better. Upon discharge, he will be discharged with Augmentin as well as prednisone. [facility] as it looks like he has COPD but has never been formally diagnosed. Weight / BMI Weight Weight: 92.9 kg Body Mass Index (BMI) 27.0 ABG / Lab / Microbiology Data 11/30/23 05:38 11/30/23 05:38 Laboratory: Laboratory Results - last 24 hr 11/29/23 11:34: POC Glucose 109 H 11/29/23 16:43: POC Glucose 154 H 11/29/23 21:52: POC Glucose 231 H 11/30/23 05:38: WBC 9.0, RBC 5.44, Hgb 15.3, Hct 47.6, MCV 87.5, MCH 28.1, MCHC 32.1, RDW Std Deviation 51.3 H, RDW Coeff of [place] 16.3 H, Plt Count 208, MPV 11.6, Immature Gran % (Auto) 0.900, Neut % (Auto) 84.1 H, Lymph % (Auto) 11.9 L, [place] % (Auto) 2.9, Eos % (Auto) 0.1, Baso % (Auto) 0.1, Absolute Neuts (auto) 7.6, Absolute Lymphs (auto) 1.07, Nucleated RBC % 0, Sodium 137, Potassium 3.6, Chloride 105, Carbon Dioxide 25.0, Anion Gap 7, BUN 42 H, Creatinine 1.75 H, Estim Creat Clear Calc 42.49, Est GFR (MDRD) Af Amer 49 L, Est GFR (MDRD) Non-Af 41 L, BUN/Creatinine Ratio 24.0 H, Glucose 182 H, Calcium 9.6 11/30/23 06:31: POC Glucose 186 H Microbiology: Microbiology 11/29/23 11:05 Sputum, Expectorated/Coughed Gram Stain - Final 11/29/23 11:05 Sputum, Expectorated/Coughed Respiratory Culture - Preliminary Appears to be normal respiratory tolu. Further studies to follow. 11/29/23 13:47 Urine, Clean Catch Legionella Antigen - Final 11/29/23 13:47 Urine, Clean Catch Streptococcus pneumoniae Antigen (M - Final 11/28/23 11:40 Mucosa - Nasopharyngeal SARS-CoV-2, Influenza & RSV (PCR) - Final Radiography Diagnostic Testing: Radiology Impression Echocardiogram 11/29/23 05:55 Interpretation Summary The left ventricular ejection fraction is 25 %. Normal LV size. There is moderate to severe global hypokinesis of the left ventricle. Mild (1+) eccentric mitral valve insufficiency. Mild (1+) tricuspid valve insufficiency. Pulmonary artery systolic pressure is 30 mmHg. Ordering Physician: Yola Hummel Referring Physician: [facility] Performed By: Lily Parish RCS D/C Instructions Discharge Diet: 1999 Calorie Control Diet Meaningful Use Info Meaningful Use Meaningful Use Diagnoses (Choose all that apply): None applicable Ischemic Stroke Statin Dosing Therapy Reference: STATIN DOSE THERAPY REFERENCE: * Patients > 75 years receive moderate or high dose statin therapy. * Patients 75 years or YOUNGER should receive HIGH intensity statin dose unless contraindicated. You will be required to document reason for non-treatment if statin daily dose does not meet guidelines. HIGH DOSE STATIN THERAPY DAILY Atorvastatin > than or = to 40 mg Rosuvastatin > than or = to 20 mg Amlodipine + Atorvastatin > than or = to 2.5/40 mg Ezetimibe + Simvastatin 10/80 mg Simvastatin 80mg Discharge Plan Admission Admit Date/Time: 11/28/23 13:27 Primary Reason for Your Visit: pneumonia Attending Provider: Sergei Trujillo Primary Care Provider: [facility] Consulting Providers: Yola Hummel Instructions Additional Instructions / Restrictions: You had pneumonia. Please take antibiotics as prescribed. Also looks like you have's COPD. You will need to have formal testing to formally determine if you have COPD but I will be on prednisone in the meantime. Please follow-up with the [facility] to have your pulmonary function test performed. Discharge Orders/Prescriptions Prescriptions: New prednisone 20 mg Tablet 40 mg PO BREAKFAST Qty: 8 0RF guaifenesin [Mucinex] 600 mg Tablet Extended Release 12hr 600 mg PO BID Qty: 10 0RF amoxicillin-pot clavulanate 875-125 mg tablet 1 tab PO BID Qty: 10 0RF Continued metformin 500 mg tablet 1,000 mg PO QHS nitroglycerin 0.4 mg tablet, sublingual 0.4 mg SUBLINGUAL Q5-15M PRN (Reason: chest pain) Qty: 90 6RF Rx Instructions: until response; do not exceed 3 doses per episode isosorbide mononitrate 60 mg tablet extended release 24 hr 30 mg PO DAILY metoprolol tartrate 25 mg tablet 12.5 mg PO BID Rx Instructions: Hold for heart less than 50 or systolic blood pressure less than 100 mmHg. Novolin 70/30 U-100 Insulin 100 unit/mL (70-30) suspension 32 unit SUBCUT QHS Novolin 70/30 U-100 Insulin 100 unit/mL (70-30) suspension 40 unit SUBCUT DAILY aspirin 81 MG tablet,chewable 81 mg PO DAILY@0800 ezetimibe [Zetia] 10 mg tablet 10 mg PO DAILY empagliflozin 25 mg tablet 12.5 mg PO DAILY tamsulosin 0.4 mg Capsule 0.4 mg PO QHS Xarelto 20 mg tablet 20 mg PO QHS Rx Instructions: must administer with evening meal levothyroxine [Euthyrox] 200 mcg tablet 200 mcg PO DAILY furosemide [Lasix] 40 mg tablet 40 mg PO DAILY Rx Instructions: Take furosemide 80 mg at 10 AM if increased leg swelling or weight gain 5 pounds in 1 week. losartan 100 mg tablet 100 mg PO DAILY albuterol sulfate 90 mcg/actuation HFA aerosol inhaler 2 inh inhalation Q4H PRN (Reason: sob) No Action cetirizine [24Hour Allergy] 10 mg tablet 10 mg PO DAILY [facility]errals [facility] - Within 2 Weeks Disposition Disposition (needs filled in before D/C Order can be placed): Home, Self Care Charges/Coding Visit Charges Inpatient E&M: 60381 Disch Hosp >30min
[2023-11-30 11:45] LABS: Bedside Glucose 350 mg/dL (74-106)
--- NOTE | 2023-11-30 14:18 | CASEMGMT ---
Patient has order for discharge. RN CM in to discuss needs at discharge. Patient denies needs or help at discharge. Patient had no further questions or concerns.
== END 2023-11-30 15:50 | disposition home or self-care (01) | DRG 194 ==
LOC: ED 13:29 → PCU 13:36
PROVIDERS: Admitting Provider Internal Medicine; Emergency Provider Emergency Medicine
DX: J13 Pneumonia due to Streptococcus pneumoniae (principal); I13.0 Hypertensive heart and chronic kidney disease with heart failure and stage 1 through stage 4 chronic kidney disease, or unspecified chronic kidney disease; I50.22 Chronic systolic (congestive) heart failure; J44.0 Chronic obstructive pulmonary disease with (acute) lower respiratory infection; I48.92 Unspecified atrial flutter; J44.1 Chronic obstructive pulmonary disease with (acute) exacerbation; N13.8 Other obstructive and reflux uropathy; E11.22 Type 2 diabetes mellitus with diabetic chronic kidney disease; I49.5 Sick sinus syndrome; N18.31 Chronic kidney disease, stage 3a; E03.9 Hypothyroidism, unspecified; E11.42 Type 2 diabetes mellitus with diabetic polyneuropathy; I25.5 Ischemic cardiomyopathy; E87.6 Hypokalemia; K52.9 Noninfective gastroenteritis and colitis, unspecified; I25.10 Atherosclerotic heart disease of native coronary artery without angina pectoris; E11.51 Type 2 diabetes mellitus with diabetic peripheral angiopathy without gangrene; E78.5 Hyperlipidemia, unspecified; Z79.4 Long term (current) use of insulin; R09.02 Hypoxemia; N40.1 Benign prostatic hyperplasia with lower urinary tract symptoms; R53.81 Other malaise; Z11.52 Encounter for screening for COVID-19; Z79.84 Long term (current) use of oral hypoglycemic drugs; Z79.01 Long term (current) use of anticoagulants; Z87.891 Personal history of nicotine dependence; Z86.73 Personal history of transient ischemic attack (TIA), and cerebral infarction without residual deficits; Z86.718 Personal history of other venous thrombosis and embolism; Z95.0 Presence of cardiac pacemaker; Z95.1 Presence of aortocoronary bypass graft; Z95.5 Presence of coronary angioplasty implant and graft
CPT/HCPCS: 36415; 71046; 71250; 80048; 80053; 82962; 83036; 83735; 83880; 84100; 84439; 84443; 84481; 84484; 85025; 85379; 87070; 87205; 87449; 87631; 93005; 93306; 94640; 94668; 94760; 97802; 99252; 99284; J7040; Q9957; A4216; G0463; J1940

== ENCOUNTER 2024-02-11 06:40 | Emergency (ER) | payer OTHER, SELFPAY ==
[2024-02-11 06:42] VITALS: BP 137/94; PULSE 62; RESP 18; TEMP 35.9; O2SAT 94; BMI 30.9
--- NOTE | 2024-02-11 07:02 | EKG12_ITS ---
Test Reason : CHEST PAIN Blood Pressure : */* mmHG Vent. Rate : 69 BPM Atrial Rate : 104 BPM P-R Int : 122 ms QRS Dur : 202 ms QT Int : 540 ms P-R-T Axes : 117 -83 109 degrees QTcB Int : 578 ms AV dual-paced rhythm with premature ventricular or aberrantly conducted complexes Abnormal ECG Suspect Afib/flutter is underlying rhythm Confirmed by Antonio Clifford ([id number]), editor in chief newspaper CHANNING LLOYD ([id number]) on 02/14/2024 6:18:38 AM Referred By: Confirmed By: Antonio Clifford
--- NOTE | 2024-02-11 07:05 | RAD_ITS ---
EXAM: XR CHEST, 2 VIEWS CLINICAL INDICATION: chest pain and dyspnea, rales R base greater L TECHNIQUE: Frontal and lateral views of the chest. COMPARISON: Chest x-ray 11/28/[address] scan of the chest 11/28/2023. FINDINGS: LUNGS AND PLEURAL SPACES: Ill-defined opacity right midlung measuring up to 3.5 cm was also seen on the prior CT scan but appears mildly increased. Persistent coarse reticular interstitial disease in the lower lungs bilaterally likely due to pulmonary fibrosis. Previous CT scan demonstrated interstitial disease with traction bronchiectasis in these regions. No pneumothorax. No effusion. HEART: Status post coronary artery bypass graft. MEDIASTINUM: Central airways and mediastinal contour are unremarkable. BONES/JOINTS: Sternal wires. No acute fracture. SOFT TISSUES: Unremarkable. TUBES, LINES AND DEVICES: No change pacemaker. RAD/Chest PA and Lateral IMPRESSION: 1. Persistent coarse reticular interstitial disease in the lower lungs bilaterally likely due to pulmonary fibrosis. Previous CT scan demonstrated interstitial disease with traction bronchiectasis in these regions. 2. Ill-defined opacity right midlung measuring up to 3.5 cm was also seen on the prior CT scan but appears mildly increased. Consider follow-up CT. Differential diagnosis includes pneumonia and neoplasm. Electronically Signed: Antonio Craig MD at 7:50 EST ,
--- NOTE | 2024-02-11 07:14 | EX.ED.DYSGE1 ---
HPI History of Present Illness Chief Complaint: Shortness of Breath Detail of Chief Complaint: Intermittent shortness of breath and chest discomfort Informant: patient and spouse/S.O. Onset/Context/Timing Onset: Days Context: Sudden Onset Timing: Intermittent Quality: Shortness of breath and left-sided chest pain Location: Dyspnea is not related to activity or change in position. Chest discomfort Current Severity: Gone Maximum Severity: Moderate Worsened by: Nothing Relieved by: Nothing Associated Symptoms Associated Symptoms: HPI narrative Narrative Narrative: Patient is a 73-year-old male with history of coronary disease status post coronary bypass surgery January 2017. He also has history of non-ST elevation myocardial infarction since bypass surgery. His clinical support manager Dr. Chance. He has a pacemaker and reportedly defibrillator placed. He does have history of cardiomyopathy and states his EF is low. He also has history of elevated troponin in the past. Patient does have history of atrial flutter, bifascicular block, CVA on long-term anticoagulant use. He had a pacemaker placed because he has history of sick sinus syndrome. He also has diabetes, hyperlipidemia and hypertension. Patient presents because over the past several days she has had intermittent shortness of breath. It is not associated with exertion. He denies orthopnea. He denies swelling of his feet or legs. He denies symptoms of claudication. He states he does have a stent left leg and reason he is on Xarelto. He also has history of irregular heartbeats. The chest discomfort is left chest region anteriorly. This is not associated with change in position, eating or exertion. Described as pain. There is no radiation or associated symptoms. He denies history of peptic ulcer disease, hiatal hernia, reflux. Denies black or maroon-colored stool. He denies intolerance to greasy or fried foods. He does endorse mild congestion. He does have a cough which is productive of white sputum. He denies hemoptysis. He denies leg pain, swelling discoloration. He has no history of VTE. Prior similar symptoms: Yes Recent Illness/Hospitalization: Yes [facility] Medical History CKD stage 3a, GFR 45-59 ml/min Cardiomyopathy Presence of cardiac pacemaker 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 atrioventricular block Peripheral neuropathy (HFpEF) heart failure with preserved ejection fraction History of DVT (deep vein thrombosis) BPH (benign prostatic hyperplasia) PAD (peripheral artery disease) CAD (coronary artery disease) [facility]IAN treated with BiPAP Obesity Atrial flutter Hypothyroidism Atrial flutter by electrocardiogram CKD (chronic kidney disease) Aftercare following surgery of the circulatory system Thrombosis of left common femoral artery Left leg pain Palpitations NSVT (nonsustained ventricular tachycardia) History of non-ST elevation myocardial infarction (NSTEMI) Stroke CVA (cerebral vascular accident) Open wound of scalp Ischemic stroke Dizziness Essential (primary) hypertension Atherosclerosis of [place] coronary artery of [place] heart without angina pectoris Thyroid disorder Diabetes mellitus Hyperlipidemia Home Medications ?Medication ?Instructions ?Recorded ?Last Taken ?Type metformin 500 mg tablet 1,000 mg PO BID DM 03/19/17 11/27/23 History nitroglycerin 0.4 mg sublingual 0.4 mg sublingual Q5-15M PRN chest 05/25/18 Unknown Rx tablet pain #90 tabs aspirin 81 mg chewable tablet 81 mg PO DAILY@0800 HEALTH 06/16/22 11/28/23 History MAINTENANCE ezetimibe 10 mg tablet (Zetia) 10 mg PO DAILY DM 06/16/22 11/28/23 History empagliflozin 25 mg tablet 12.5 mg PO DAILY diabetes 11/24/22 11/28/23 History metoprolol tartrate 25 mg tablet 12.5 mg PO BID HEART/BLOOD PRESSURE 04/01/23 11/28/23 History rivaroxaban 20 mg tablet (Xarelto) 20 mg PO QHS blood thinner 05/14/23 11/27/23 History tamsulosin 0.4 mg capsule 0.4 mg PO QHS prostate 05/14/23 11/27/23 History furosemide 40 mg tablet (Lasix) 40 mg PO DAILY fluid retention 06/03/23 11/28/23 History levothyroxine 200 mcg tablet 200 mcg PO DAILY 06/03/23 11/28/23 History (Euthyrox) albuterol sulfate 90 mcg/actuation 2 inh inhalation Q4H PRN sob 11/28/23 Unknown History aerosol inhaler losartan 100 mg tablet 100 mg PO DAILY 11/28/23 11/28/23 History guaifenesin 600 mg tablet, 600 mg PO BID #10 tabs 11/30/23 Unknown Rx extended release 12 hr (Mucinex) doxycycline monohydrate 100 mg 100 mg PO BID #14 CAPSULES 02/11/24 Unknown Rx capsule insulin aspar prt-insulin aspart 32 unit subcut QDAY 02/11/24 Unknown History 100 unit/mL (70-30) subcutaneous soln (Novolog Mix 70-30 U-100 Insuln) insulin aspar prt-insulin aspart 40 unit subcut QHS 02/11/24 Unknown History 100 unit/mL (70-30) subcutaneous soln (Novolog Mix 70-30 U-100 Insuln) Allergy/AdvReac Type Severity Reaction Status Date / Time atorvastatin (From Lipitor) AdvReac Severe mylagia Verified 02/11/24 06:41 lanolin AdvReac Severe Rash Verified 02/11/24 06:41 Family History Sister CAD (coronary artery disease) Diabetes Brother CAD (coronary artery disease) Father Asthma Mother Cancer lung Surgical History Hx of cardiac catheterization (~01/19/17) S/P coronary artery stent placement (~04/05/18) History of coronary artery bypass surgery (~01/21/17) Social History household members: spouse Smoking Status: Former smoker how long ago did patient quit smokin alcohol intake: never substance use type: does not use caffeine: Yes Type: coffee Number of servings: 3 what type of physical activity do you participate in: none seatbelt use: always do you feel safe at home: Yes ROS ROS ED Constitutional Constitutional ED: Denies chills, fever(s), subjective or sweats Eyes Eyes: Denies blurry vision or change in vision ENT ENT ED: Reports sore throat; Denies ear pain or rhinorrhea Cardiovascular Cardiovascular: Reports chest pain; Denies orthopnea, palpitations, paroxysmal nocturnal dyspnea or racing heartbeat Respiratory/Chest Respiratory/Chest: Reports cough, dyspnea and sputum; Denies dyspnea on exertion, orthopnea or paroxysmal nocturnal dyspnea Gastrointestinal Gastrointestinal: Denies abdominal pain, nausea or vomiting Genitourinary Genitourinary ED: Denies dysuria, hematuria or urinary frequency Musculoskeletal Musculoskeletal: Denies arthralgias or myalgias Integumentary Denies rash Neurologic Neurologic: Denies headache(s), paresthesias or weakness Hematologic/Lymphatic Hematologic/Lymphatic: Reports easy bruising EXAM Physical Exam Const Vital Signs: 02/11/24 06:42 02/11/24 06:54 02/11/24 07:03 Temperature 96.6 F L Temperature Source Oral Pulse Rate 62 Respiratory Rate 18 Respiratory Effort Normal Blood Pressure 137/94 H Blood Pressure Mean 108 Pulse Ox 94 Oxygen Delivery Method Room Air Room Air 02/11/24 08:40 02/11/24 10:00 Temperature Temperature Source Pulse Rate 74 82 Respiratory Rate 17 18 Respiratory Effort Blood Pressure 114/91 H 135/89 H Blood Pressure Mean 98 104 Pulse Ox 95 97 Oxygen Delivery Method Room Air Room Air Positive well nourished and well developed Constitutional Narrative: BMI is 30.9. General Appearance ED: well developed and NAD; Negative for cyanotic, diaphoretic or pallor HEENT Reports moist mucous membranes HEENT Narrative: Head is atraumatic normocephalic. Ears normal. Nares patent. Mucosa moist. Eyes PERRL and EOMs intact bilaterally General Eye ED: Negative for pale conjunctiva or scleral icterus Neck no lymphadenopathy, supple and no JVD Neck Narrative: Trachea is midline. There is no dysphonia. There is no stridor. Chest Wall inspection of chest normal and palpation of chest normal Resp normal respiratory effort and No clear to auscultation bilaterally Auscultation: rales bilateral base (Right greater than left.) Cardio regular rate and no murmurs Rhythm: abnormal rhythm irregularly irregular GI normal to inspection, nondistended, normoactive bowel sounds, non-tender, non-distended and no masses; Negative for hepatosplenomegaly Back/Spine no CVA tenderness Extremity Negative for normal to inspection Extremity Narrative: Patient has absence of hair on his legs and toes. There is thickened nails. DP pulses not palpable either side. Feet are warm. Capillary refill is normal. There is no discoloration, asymmetry, leg vein distention, palpable cords or tenderness on the distribution deep venous system. Neuro oriented x3 and CN's II-XII intact bilaterally Sensorium / Orientation: alert Psych mental status grossly normal Skin no rashes or lesions noted, no wounds and skin turgor normal General Skin Exam: Negative for elasticity normal, jaundice or pallor MDM MDM MDM Narrative Medical decision making narrative: Intermittent shortness of breath and chest pain. In light of patient's risk factors history need to evaluate for cardiac versus noncardiac. Noncardiac would include pneumonia, pneumothorax, congestive heart failure. PE is unlikely based on history and no risk factors for pulmonary embolus. He is also on an anticoagulant, Xarelto due to peripheral arterial disease. Patient recently saw his dermatologist managing partner at the [facility]. He suspect his dyspnea is due to left ventricular dysfunction. Patient does have history of congestive heart failure. CBC was obtained assess white count and H&H since there is concern for pneumonia. Since he is reporting chest pain troponin was obtained with 2-hour troponin. Cardiac disease is not very likely since it is intermittent not associated with activity and localized to the left lower pectoral region. Lab Data Attestation: I reviewed the patient's lab results. Lab results narrative: CBC is unremarkable. Patient's first and second troponin are normal with a delta of -3. Patient's BUN and creatinine are elevated at 32 and 1.65. Estimated GFR is 44. Patient has chronically elevated troponin levels at the upper end of normal.Patient's previous BUN and creatinine were 42 and 1.75. Labs: Laboratory Results - last 24 hr 02/11/24 02/11/24 07:06 09:10 WBC 9.3 RBC 5.71 Hgb 16.0 Hct 51.5 MCV 90.2 MCH 28.0 MCHC 31.1 L RDW Std Deviation 59.4 H RDW Coeff of [place] 19.0 H Plt Count 192 MPV 11.4 Immature Gran % (Auto) 0.600 Neut % (Auto) 69.2 Lymph % (Auto) 21.2 [place] % (Auto) 6.6 Eos % (Auto) 1.5 Baso % (Auto) 0.9 Absolute Neuts (auto) 6.5 Absolute Lymphs (auto) 1.97 Nucleated RBC % 0.3 Sodium 142 Potassium 3.4 L Chloride 106 Carbon Dioxide 28.0 Anion Gap 8 BUN 32 H Creatinine 1.65 H Estim Creat Clear Calc 50.99 Est GFR (MDRD) Af Amer 53 L Est GFR (MDRD) Non-Af 44 L BUN/Creatinine Ratio 19.4 Glucose 125 H Calcium 9.2 Troponin I High Sens 65 62 Radiography Chest X-Ray - ED: 2 View and Read by ED Physician (Comparison November 2023. There is increased interstitial markings inferior segment of the right upper lobe versus superior segment of the right middle lobe. There is cardiomegaly. Patient has dual-chamber pacemaker noted. [place] is unchanged. Osseous structures are unremarkable. 0715) Diagnostic Testing: Clinical Impression(s) from Imaging Studies Chest X-Ray 02/11/24 07:05 IMPRESSION: 1. Persistent coarse reticular interstitial disease in the lower lungs bilaterally likely due to pulmonary fibrosis. Previous CT scan demonstrated interstitial disease with traction bronchiectasis in these regions. 2. Ill-defined opacity right midlung measuring up to 3.5 cm was also seen on the prior CT scan but appears mildly increased. Consider follow-up CT. Differential diagnosis includes pneumonia and neoplasm. Electronically Signed: Antonio Craig MD at 7:50 EST , Chest CT 02/11/24 08:06 IMPRESSION: Emphysematous changes with scarring as described worse in the right upper lobe with areas of bronchiectasis and emphysematous changes. Small bilateral pleural effusions. Stable multiple mediastinal lymph nodes measuring upper limits of normal. Electronically Signed: Jesus Alberto Blair MD at 8:24 EST , EKG Initial EKG: Attestation: I personally reviewed and interpreted this EKG as follows: Interpretation: Paced (AV dual paced rhythm with premature ventricular beats versus aberrant beats. Underlying rhythm is atrial flutter. [place] interval is 122 ms. QS duration 202 ms. QT duration is 540 ms.) Treatment and Re-Evaluation :: Patient was informed of his laboratory results, chest x-ray results and reason for CAT scan. He was informed the CAT scan results. Patient has emphysematous changes and probable undiagnosed COPD based on CT results. Since he does have a cough we will treat with doxycycline. Discharge Plan Triage Chief Complaint: Shortness of Breath ED Provider: Pawel Kapoor Dx/Rx/DC Orders Clinical Impression: Non-cardiac chest pain, S/P coronary artery stent placement, Hyperlipidemia, CAD (coronary artery disease), Shortness of breath, Cardiomyopathy, Essential (primary) hypertension, Bronchiectasis, Emphysema of lung Instructions: ED COPD Flare Prescriptions: New doxycycline monohydrate 100 mg capsule 100 mg PO BID Qty: 14 0RF No Action metformin 500 mg tablet 1,000 mg PO BID nitroglycerin 0.4 mg tablet, sublingual 0.4 mg SUBLINGUAL Q5-15M PRN (Reason: chest pain) Qty: 90 6RF Rx Instructions: until response; do not exceed 3 doses per episode metoprolol tartrate 25 mg tablet 12.5 mg PO BID Rx Instructions: Hold for heart less than 50 or systolic blood pressure less than 100 mmHg. aspirin 81 MG tablet,chewable 81 mg PO DAILY@0800 ezetimibe [Zetia] 10 mg tablet 10 mg PO DAILY empagliflozin 25 mg tablet 12.5 mg PO DAILY tamsulosin 0.4 mg Capsule 0.4 mg PO QHS Xarelto 20 mg tablet 20 mg PO QHS Rx Instructions: must administer with evening meal levothyroxine [Euthyrox] 200 mcg tablet 200 mcg PO DAILY furosemide [Lasix] 40 mg tablet 40 mg PO DAILY Rx Instructions: Take furosemide 80 mg at 10 AM if increased leg swelling or weight gain 5 pounds in 1 week. losartan 100 mg tablet 100 mg PO DAILY albuterol sulfate 90 mcg/actuation HFA aerosol inhaler 2 inh inhalation Q4H PRN (Reason: sob) guaifenesin [Mucinex] 600 mg Tablet Extended Release 12hr 600 mg PO BID Qty: 10 0RF insulin asp prt-insulin aspart [Novolog Mix 70-30 U-100 Insuln] 100 unit/mL (70-30) solution 32 unit subcut QDAY insulin asp prt-insulin aspart [Novolog Mix 70-30 U-100 Insuln] 100 unit/mL (70-30) solution 40 unit subcut QHS [facility] [[facility] Provider] - Print Language: Yi Disposition Disposition: Home, Self Care
[2024-02-11 07:15] LABS: Absolute Lymphocyte Count 1.97 X10^3/uL (0.83-4.51); Absolute Neutrophil Count 6.5 X10^3/uL (2.0-7.7); Basophil# 0.08 X10^3/uL; Basophil% 0.9 % (0-1); Eosinophil# 0.14 X10^3/uL; Eosinophils% 1.5 % (0-5); Hematocrit 51.5 % (40-54); Lymphocyte # 1.97 X10^3/ul (0.83-4.51); Lymphocyte % 21.2 % (19-41); Mean Corp Hgb Conc 31.1 g/dL (32-36); Mean Corpuscular Volume 90.2 fL (80-94); Mean Platelet Vol. 11.4 fl (6.2-12.0); Monocyte# 0.61 X10^3/uL; Monocyte% 6.6 % (0-10); NRBC Flagged by Analyzer 0.3 % (0-5); Neutrophil # 6.45 X10^3/uL (2.7-7.7); Neutrophil % 69.2 % (47-70); Platelet Count 192 K/mm3 (150-450); RBC Distribution Width SD 59.4 fl (35.1-43.9); Red Blood Count 5.71 M/mm3 (4.6-6.2); White Blood Count 9.3 K/mm3 (4.4-11.0)
[2024-02-11 07:34] LABS: Anion Gap 8 (5-15); BUN 32 mg/dL (7-18); BUN/Creat Ratio 19.4 RATIO (10-20); Calcium,Total 9.2 mg/dL (8.5-10.1); Chloride 106 mmol/L (98-107); Creatinine, Serum 1.65 mg/dL (0.70-1.30); EST Glomerular Filtration Rate 44 mL/min (>60); Est Glom Filt Rate - Afr Amer 53 mL/min (>60); Estimated Creatinine Clearance 50.99 ml/min; Glucose 125 mg/dL (74-106); Potassium 3.4 mmol/L (3.5-5.1); Sodium Level 142 mmol/L (136-145); Troponin-I HS (w/2H Reflex) 65 pg/mL (3.0-78.0)
--- NOTE | 2024-02-11 08:06 | CT_ITS ---
STUDY: CT CHEST WITHOUT CONTRAST REASON FOR EXAM: Male, 73 years old. Ill-defined mass right lung field neoplasm versus RADIATION DOSAGE (If Supplied By Facility): CTDIvol = ( 14.74 ) mGy, DLP = ( 537.93 ) mGycm TECHNIQUE: Transaxial imaging was performed without the administration of intravenous contrast material. Multiplanar coronal and sagittal images were reformatted. Individualized dose optimization techniques were used for this CT. COMPARISON: Comparison is made with prior chest radiograph dated February 11, [address] scan of the thorax dated November 28, 2023. FINDINGS: CHEST Hyperinflation. Stable emphysematous changes. Stable scarring in the anterior aspect of the right upper lobe with fibrosis and bronchiectasis anteriorly. Stable irregular area of a groundglass appearance with evidence of bronchiectasis and scarring. This is essentially unchanged. Stable scarring and emphysematous changes at the lung bases. Small bilateral pleural effusions slightly greater on the left side. Sternal cerclage wires and vascular clips are present from a prior sternotomy and coronary artery bypass graft procedure (CABG). Coronary artery calcification. The left-sided dual-chamber pacemaker is seen. There are multiple small lymph nodes within the mediastinum, which are normal in size and morphology most compatible with reactive lymph hyperplasia. Normal hilar regions. Normal unenhanced pulmonary arteries. There is atherosclerotic calcification of the aortic arch with tortuosity and elongation of the aortic arch and descending thoracic aorta. There are multi-level degenerative changes of the thoracic spine. There is no demonstrated abnormality of the visualized upper abdomen. CT/Chest without Contrast IMPRESSION: Emphysematous changes with scarring as described worse in the right upper lobe with areas of bronchiectasis and emphysematous changes. Small bilateral pleural effusions. Stable multiple mediastinal lymph nodes measuring upper limits of normal. Electronically Signed: Jesus Alberto Blair MD at 8:24 EST ,
[2024-02-11 08:40] VITALS: BP 114/91; PULSE 74; RESP 17; O2SAT 95
[2024-02-11 09:12] LABS: Reflex Troponin-HS? (from REC) Y
[2024-02-11 09:38] LABS: Troponin-I HS 62 pg/mL (3.0-78.0)
[2024-02-11 10:00] VITALS: BP 135/89; PULSE 82; RESP 18; O2SAT 97
[2024-02-11 12:14] VITALS: BP 108/77; PULSE 78; RESP 18; TEMP 36.9; O2SAT 95
== END 2024-02-11 12:14 | disposition home or self-care (01) ==
PROVIDERS: Emergency Provider Emergency Medicine; Visit Provider Emergency Medicine
DX: R07.89 Other chest pain (principal); I13.0 Hypertensive heart and chronic kidney disease with heart failure and stage 1 through stage 4 chronic kidney disease, or unspecified chronic kidney disease; I50.32 Chronic diastolic (congestive) heart failure; J47.9 Bronchiectasis, uncomplicated; J43.9 Emphysema, unspecified; I42.9 Cardiomyopathy, unspecified; E11.51 Type 2 diabetes mellitus with diabetic peripheral angiopathy without gangrene; E11.42 Type 2 diabetes mellitus with diabetic polyneuropathy; E11.22 Type 2 diabetes mellitus with diabetic chronic kidney disease; Z79.4 Long term (current) use of insulin; N18.31 Chronic kidney disease, stage 3a; R06.02 Shortness of breath; Z95.0 Presence of cardiac pacemaker; I25.10 Atherosclerotic heart disease of native coronary artery without angina pectoris; E78.5 Hyperlipidemia, unspecified; Z87.891 Personal history of nicotine dependence; Z95.5 Presence of coronary angioplasty implant and graft; Z79.01 Long term (current) use of anticoagulants; Z86.718 Personal history of other venous thrombosis and embolism; Z86.73 Personal history of transient ischemic attack (TIA), and cerebral infarction without residual deficits
CPT/HCPCS: 71046; 71250; 80048; 84484; 85025; 93005; 99283; A4216

== ENCOUNTER 2024-02-20 08:48 | Inpatient (IN) | payer OTHER, SELFPAY ==
[2024-02-20] VITALS (15 sets, daily range): BP systolic 122–149; BP diastolic 75–125; PULSE 75–94; RESP 16–27; TEMP 35.3–37.3; O2SAT 87–96; BMI 30.4; BMI 29.9
--- NOTE | 2024-02-20 09:03 | EKG12_ITS ---
Test Reason : Blood Pressure : */* mmHG Vent. Rate : 82 BPM Atrial Rate : 89 BPM P-R Int : * ms QRS Dur : 146 ms QT Int : 460 ms P-R-T Axes : * 208 -46 degrees QTcB Int : 537 ms Poor data quality Probable NSR with frequent PVC's and PAC's Right bundle branch block Inferior infarct , age undetermined T wave abnormality, consider lateral ischemia Abnormal ECG Confirmed by Antonio Clifford ([id number]), news video editor CHANNING LLOYD ([id number]) on 02/21/2024 11:43:44 AM Referred By: Confirmed By: Antonio Clifford
--- NOTE | 2024-02-20 09:07 | ED.VIS.DYS ---
HPI History of Present Illness Chief Complaint: Shortness of Breath Detail of Chief Complaint: Cough and shortness of breath for weeks to months. Informant: patient Onset/Context/Timing Onset: Weeks and Month(s) Context: gradual Timing: Intermittent Current Severity: Mild Maximum Severity: Mild Worsened by: Coughing Relieved by: Nothing Associated Symptoms cough and white sputum Chest Pain: Positive for None Narrative Narrative: 73-year-old male history of chronic kidney disease, cardiomyopathy, MA, CHF, DVT on Xarelto states he has not missed a dose. Also diabetic. Patient states for the last several weeks to months he has had chronic cough of white sputum and shortness of breath. Denies any chest pain. No hemoptysis. No leg swelling. No fever. He is not on oxygen at home. He used to be a smoker but quit in 9825 years ago. PE Risk Factors: Positive for Prior DVT or PE; Negative for Cancer, OCP + Smoking + > 35, Recent immobilization, Recent surgery or Recent travel Prior similar symptoms: Yes Recent Illness/Hospitalization: Yes PFSH PFS Medical History CKD stage 3a, GFR 45-59 ml/min Cardiomyopathy Presence of cardiac pacemaker 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 atrioventricular block Peripheral neuropathy (HFpEF) heart failure with preserved ejection fraction History of DVT (deep vein thrombosis) BPH (benign prostatic hyperplasia) PAD (peripheral artery disease) CAD (coronary artery disease) WILLIAN treated with BiPAP Obesity Atrial flutter Hypothyroidism Atrial flutter by electrocardiogram CKD (chronic kidney disease) Aftercare following surgery of the circulatory system Thrombosis of left common femoral artery Left leg pain Palpitations NSVT (nonsustained ventricular tachycardia) History of non-ST elevation myocardial infarction (NSTEMI) Stroke CVA (cerebral vascular accident) Open wound of scalp Ischemic stroke Dizziness Essential (primary) hypertension Atherosclerosis of [place] coronary artery of [place] heart without angina pectoris Thyroid disorder Diabetes mellitus Hyperlipidemia Home Medications ?Medication ?Instructions ?Recorded ?Last Taken ?Type metformin 500 mg tablet 1,000 mg PO BID DM 03/19/17 11/27/23 History nitroglycerin 0.4 mg sublingual 0.4 mg sublingual Q5-15M PRN chest 05/25/18 Unknown Rx tablet pain #90 tabs aspirin 81 mg chewable tablet 81 mg PO DAILY@0800 HEALTH 06/16/22 11/28/23 History MAINTENANCE ezetimibe 10 mg tablet (Zetia) 10 mg PO DAILY DM 06/16/22 11/28/23 History empagliflozin 25 mg tablet 12.5 mg PO DAILY diabetes 11/24/22 11/28/23 History metoprolol tartrate 25 mg tablet 12.5 mg PO BID HEART/BLOOD PRESSURE 04/01/23 11/28/23 History rivaroxaban 20 mg tablet (Xarelto) 20 mg PO QHS blood thinner 05/14/23 11/27/23 History tamsulosin 0.4 mg capsule 0.4 mg PO QHS prostate 05/14/23 11/27/23 History furosemide 40 mg tablet (Lasix) 40 mg PO DAILY fluid retention 06/03/23 11/28/23 History levothyroxine 200 mcg tablet 200 mcg PO DAILY 06/03/23 11/28/23 History (Euthyrox) albuterol sulfate 90 mcg/actuation 2 inh inhalation Q4H PRN sob 11/28/23 Unknown History aerosol inhaler losartan 100 mg tablet 100 mg PO DAILY 11/28/23 11/28/23 History guaifenesin 600 mg tablet, 600 mg PO BID #10 tabs 11/30/23 Unknown Rx extended release 12 hr (Mucinex) doxycycline monohydrate 100 mg 100 mg PO BID #14 CAPSULES 02/11/24 Unknown Rx capsule insulin aspar prt-insulin aspart 32 unit subcut QDAY 02/11/24 Unknown History 100 unit/mL (70-30) subcutaneous soln (Novolog Mix 70-30 U-100 Insuln) insulin aspar prt-insulin aspart 40 unit subcut QHS 02/11/24 Unknown History 100 unit/mL (70-30) subcutaneous soln (Novolog Mix 70-30 U-100 Insuln) Allergy/AdvReac Type Severity Reaction Status Date / Time atorvastatin (From Lipitor) AdvReac Severe mylagia Verified 02/20/24 08:51 lanolin AdvReac Severe Rash Verified 02/20/24 08:51 Family History Sister CAD (coronary artery disease) Diabetes Brother CAD (coronary artery disease) Father Asthma Mother Cancer lung Surgical History Hx of cardiac catheterization (~01/19/17) S/P coronary artery stent placement (~04/05/18) History of coronary artery bypass surgery (~01/21/17) Social History household members: spouse Smoking Status: Former smoker how long ago did patient quit smokin alcohol intake: never substance use type: does not use caffeine: Yes Type: coffee Number of servings: 3 what type of physical activity do you participate in: none seatbelt use: always do you feel safe at home: Yes ROS ROS ED ROS Narrative Cough. Shortness of breath. Constitutional Constitutional ED: Denies chills or fever(s) Eyes Eyes: Denies blurry vision ENT ENT ED: Denies ear pain Cardiovascular Cardiovascular: Denies chest pain, palpitations or racing heartbeat Respiratory/Chest Respiratory/Chest: Reports cough, dyspnea and sputum Gastrointestinal Gastrointestinal: Denies abdominal pain or constipation Genitourinary Genitourinary ED: Denies dysuria or hematuria Musculoskeletal Musculoskeletal: Denies arthralgias Integumentary Denies abscess Neurologic Neurologic: Denies headache(s) Psychiatric Psychiatric: Denies anxiety Endocrine Endocrinology: Denies cold intolerance Hematologic/Lymphatic Hematologic/Lymphatic: Denies lymphadenopathy Allergic/Immunologic Allergic/Immunologic ED: Denies mouth swelling, tongue swelling or urticaria EXAM Physical Exam Narrative Exam Narrative: 73-year-old male vital signs are stable except pulse ox is 87% on room air no hypoxia. He is afebrile. He does not look septic or toxic. Sitting upright in bed. No distress. H EENT exam unremarkable. Mytrex membranes. Neck nontender no JVD. No lymphadenopathy. Lungs clear to auscultation bilaterally. Dry cough. Heart regular rhythm rate about 90 no murmur. Chest wall ribs nontender. Abdomen soft nontender. Moving all 4 extremities. Nontender no edema or cords. Normal range of motion. Normal strength. He is awake and alert. No focal motor deficits. Const Vital Signs: 02/20/24 08:49 02/20/24 08:51 02/20/24 09:03 Temperature 95.5 F L Temperature Source Temporal Pulse Rate 91 Respiratory Rate 26 H Respiratory Effort Short of Breath Labored Respiratory Depth Respiratory Pattern Normal Blood Pressure 145/107 H Blood Pressure Mean 119 Pulse Ox 87 Oxygen Delivery Method Room Air Room Air Oxygen Flow Rate (L/min) 12/01/24 09:14 02/20/24 09:40 02/20/24 10:03 Temperature Temperature Source Pulse Rate 79 Respiratory Rate 27 H Respiratory Effort Short of Breath Labored Respiratory Depth Shallow Respiratory Pattern Tachypnea Blood Pressure 149/125 H Blood Pressure Mean 134 Pulse Ox 94 Oxygen Delivery Method Room Air Nasal Cannula Oxygen Flow Rate (L/min) 3 Positive well nourished and well developed; Negative for obese, cachectic, contractures or unkempt General Appearance ED: well developed and NAD; Negative for unkempt, cachectic, contractures or pallor Nutritional Appearance: Negative for cachectic or obese HEENT Reports moist mucous membranes atraumatic; Negative for trauma or tenderness Eyes PERRL and EOMs intact bilaterally General Eye ED: Negative for pale conjunctiva Neck no lymphadenopathy, supple, no meningeal signs and no JVD Resp normal respiratory effort and clear to auscultation bilaterally Effort and Inspection: Negative for pain with movement Auscultation: Negative for rales, rhonchi or wheezes Cardio regular rate, regular rhythm, S1 normal heart sound, S2 normal heart sound and no murmurs GI non-tender, non-distended and no masses Palpation: soft; Negative for tender, guarding or rebound tenderness present Back/Spine no CVA tenderness and normal to inspection Extremity normal to inspection General Extremety ED: Negative for edema or tenderness General Extremity: Negative for edema Neuro CN's II-XII intact bilaterally Sensorium / Orientation: alert, oriented to person, oriented to place and oriented to time; Negative for orientation impaired, confused, lethargic or stuporous Speech: speech normal Motor Exam: strength 5/5 throughout Psych mental status grossly normal Appearance: Negative for unkempt Attitude: No agitated Mood & Affect: Negative for depressed, anxious or tearful Thought Process: normal thought process Skin no wounds General Skin Exam: Negative for jaundice or pallor Lesions: no lesions Rashes: no rashes MDM MDM MDM Narrative Medical decision making narrative: 73-year-old male on blood thinner Xarelto complaining of cough and shortness of breath. Hypoxia to 87%. Her undergo a cardiac workup also consider pneumonia versus CHF versus effusions versus other. He had a DVT before but again he is chronically on anticoagulation and states he has not missed a dose. Repeat exam at 10:53 AM patient resting comfortably on oxygen. On oxygen is 91% off oxygen he is about 87%. He does not have oxygen at home. I think his hypoxia and shortness of breath is secondary to pulmonary edema. He does have a history of a cardiomyopathy with his last echo that I saw had an EF of 25%. Will be given IV Lasix and admitted. History & Record Review Discussion w/independent historian: Patient Additional record(s) reviewed:: Prior inpatient record, Prior outpatient record, Prior ED visit and Prior labs Lab Data Attestation: I reviewed the patient's lab results. Lab results narrative: COVID, flu and RSV negative. CBC shows white count 13.5. H&H 16.7 and 52.8. Platelets 232. Electrolytes show gap 11. BUN 32 creatinine 1.73 history of renal insufficiency. Glucose 144. Troponins elevated 112. BNP is elevated at 1626. Consistent with CHF consistent with a chest x-ray. Labs: Laboratory Results - last 24 hr 02/20/24 09:10 WBC 13.5 H RBC 5.85 Hgb 16.7 H Hct 52.8 MCV 90.3 MCH 28.5 MCHC 31.6 L RDW Std Deviation 61.5 H RDW Coeff of [place] 19.8 H Plt Count 232 MPV 12.1 H Immature Gran % (Auto) 0.700 Neut % (Auto) 80.9 H Lymph % (Auto) 11.9 L [place] % (Auto) 4.8 Eos % (Auto) 1.1 Baso % (Auto) 0.6 Absolute Neuts (auto) 10.9 H Absolute Lymphs (auto) 1.60 Nucleated RBC % 0.3 Sodium 140 Potassium 3.8 Chloride 104 Carbon Dioxide 26.0 Anion Gap 11 BUN 32 H Creatinine 1.73 H Estim Creat Clear Calc 48.27 Est GFR (MDRD) Af Amer 50 L Est GFR (MDRD) Non-Af 41 L BUN/Creatinine Ratio 18.5 Glucose 144 H Calcium 9.4 Troponin I High Sens 112 H B-Natriuretic Peptide 1626.7 H Radiography Chest X-Ray - ED: 1 View and Read by ED Physician Diagnostic Testing: Clinical Impression(s) from Imaging Studies Chest X-Ray 02/20/24 09:25 IMPRESSION: 1. Persistent bilateral pneumonia/atypical pulmonary edema, slightly worse on the right. 2. Stable cardiomegaly. Electronically Signed: Daniel García MD at 10:02 EST , Rhythm Strip Rhythm Strip: Sinus Rhythm Rate: 82 Ectopy: None EKG Initial EKG: Attestation: I personally reviewed and interpreted this EKG as follows: Interpretation: Sinus Rhythm Comments: Sinus rhythm rate 82. Right bundle branch block. Prior inferior MA. Occasional PVCs. Discharge Plan Triage Chief Complaint: Shortness of Breath Other Complaint: Cold Sx ED Provider: Will [facility] Dx/Rx/DC Orders Prescriptions: No Action metformin 500 mg tablet 1,000 mg PO BID nitroglycerin 0.4 mg tablet, sublingual 0.4 mg SUBLINGUAL Q5-15M PRN (Reason: chest pain) Qty: 90 6RF Rx Instructions: until response; do not exceed 3 doses per episode metoprolol tartrate 25 mg tablet 12.5 mg PO BID Rx Instructions: Hold for heart less than 50 or systolic blood pressure less than 100 mmHg. aspirin 81 MG tablet,chewable 81 mg PO DAILY@0800 ezetimibe [Zetia] 10 mg tablet 10 mg PO DAILY empagliflozin 25 mg tablet 12.5 mg PO DAILY tamsulosin 0.4 mg Capsule 0.4 mg PO QHS Xarelto 20 mg tablet 20 mg PO QHS Rx Instructions: must administer with evening meal levothyroxine [Euthyrox] 200 mcg tablet 200 mcg PO DAILY furosemide [Lasix] 40 mg tablet 40 mg PO DAILY Rx Instructions: Take furosemide 80 mg at 10 AM if increased leg swelling or weight gain 5 pounds in 1 week. losartan 100 mg tablet 100 mg PO DAILY albuterol sulfate 90 mcg/actuation HFA aerosol inhaler 2 inh inhalation Q4H PRN (Reason: sob) guaifenesin [Mucinex] 600 mg Tablet Extended Release 12hr 600 mg PO BID Qty: 10 0RF insulin asp prt-insulin aspart [Novolog Mix 70-30 U-100 Insuln] 100 unit/mL (70-30) solution 32 unit subcut QDAY insulin asp prt-insulin aspart [Novolog Mix 70-30 U-100 Insuln] 100 unit/mL (70-30) solution 40 unit subcut QHS doxycycline monohydrate 100 mg capsule 100 mg PO BID Qty: 14 0RF Primary Care Provider: [facility] [[facility] - Print Language: Telugu
[2024-02-20 09:18] LABS: Absolute Neutrophil Count 10.9 X10^3/uL (2.0-7.7); Basophil# 0.08 X10^3/uL; Basophil% 0.6 % (0-1); Eosinophil# 0.15 X10^3/uL; Eosinophils% 1.1 % (0-5); Hematocrit 52.8 % (40-54); Hemoglobin 16.7 g/dL (13.0-16.5); Lymphocyte % 11.9 % (19-41); Mean Corp Hgb Conc 31.6 g/dL (32-36); Mean Corpuscular Hgb 28.5 pg (27.0-32.0); Mean Corpuscular Volume 90.3 fL (80-94); Mean Platelet Vol. 12.1 fl (6.2-12.0); Monocyte# 0.65 X10^3/uL; Monocyte% 4.8 % (0-10); NRBC Flagged by Analyzer 0.3 % (0-5); Neutrophil # 10.93 X10^3/uL (2.7-7.7); Neutrophil % 80.9 % (47-70); Platelet Count 232 K/mm3 (150-450); RBC Distribution Width CV 19.8 % (11.6-14.6); RBC Distribution Width SD 61.5 fl (35.1-43.9); Red Blood Count 5.85 M/mm3 (4.6-6.2); White Blood Count 13.5 K/mm3 (4.4-11.0)
--- NOTE | 2024-02-20 09:25 | RAD_ITS ---
EXAM: XR CHEST, 1 VIEW CLINICAL INDICATION: chest pain TECHNIQUE: Frontal view of the chest. COMPARISON: XR Chest dated 02/11/2024 FINDINGS: LUNGS AND PLEURAL SPACES: Bilateral airspace opacification of the lungs again noted with increasing involvement of the right lung. Minimal left pleural effusion. Pulmonary vascular congestion. HEART: Stable mild cardiomegaly. Surgical changes of coronary artery bypass graft (CABG). MEDIASTINUM: No mediastinal or hilar mass. BONES/JOINTS: No acute abnormality. TUBES, LINES AND DEVICES: Atrial and ventricular pacemaker wires remain in place. RAD/Chest 1 View (Portable) IMPRESSION: 1. Persistent bilateral pneumonia/atypical pulmonary edema, slightly worse on the right. 2. Stable cardiomegaly. Electronically Signed: Daniel García MD at 10:02 EST ,
[2024-02-20 09:35] LABS: Anion Gap 11 (5-15); BUN 32 mg/dL (7-18); BUN/Creat Ratio 18.5 RATIO (10-20); Calcium,Total 9.4 mg/dL (8.5-10.1); Chloride 104 mmol/L (98-107); Creatinine, Serum 1.73 mg/dL (0.70-1.30); EST Glomerular Filtration Rate 41 mL/min (>60); Est Glom Filt Rate - Afr Amer 50 mL/min (>60); Estimated Creatinine Clearance 48.27 ml/min; Glucose 144 mg/dL (74-106); Potassium 3.8 mmol/L (3.5-5.1); Sodium Level 140 mmol/L (136-145); Troponin-I HS 112 pg/mL (3.0-78.0)
[2024-02-20 09:52] LABS: BNP,B-Type NATRIURETIC PEPTIDE 1626.7 pg/mL (0-100)
[2024-02-20] MEDS: Furosemide 100 MG/10 ML Vial 60 MG IV (11:31)
--- NOTE | 2024-02-20 11:36 | HP.PCM.HOS_ITS ---
HPI - General General Date of Admission: 02/20/24 Date of Service: 02/20/24 Chief Complaint: shortness of breath. HPI Narrative MICKY ABDI, is a 73 M with CHF who presents with progressive SOB and MOURA over the past 3 weeks. He presents to the ED today and had pulmonary vascular congestion on his CXR. He received 60mg of IV furosemide. He denies weight gain, LE edema. He was hypoxic upon arrival at the ED and placed on oxygen. He is not on oxygen at home. He has had CHF exacerbations previously. [facility] Medical History CKD stage 3a, GFR 45-59 ml/min Cardiomyopathy Presence of cardiac pacemaker 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 atrioventricular block Peripheral neuropathy (HFpEF) heart failure with preserved ejection fraction History of DVT (deep vein thrombosis) BPH (benign prostatic hyperplasia) PAD (peripheral artery disease) CAD (coronary artery disease) WILLIAN treated with BiPAP Obesity Atrial flutter Hypothyroidism Atrial flutter by electrocardiogram CKD (chronic kidney disease) Aftercare following surgery of the circulatory system Thrombosis of left common femoral artery Left leg pain Palpitations NSVT (nonsustained ventricular tachycardia) History of non-ST elevation myocardial infarction (NSTEMI) Stroke CVA (cerebral vascular accident) Open wound of scalp Ischemic stroke Dizziness Essential (primary) hypertension Atherosclerosis of [place] coronary artery of [place] heart without angina pectoris Thyroid disorder Diabetes mellitus Hyperlipidemia Home Medications ?Medication ?Instructions ?Recorded ?Last Taken ?Type nitroglycerin 0.4 mg sublingual 0.4 mg sublingual Q5-15M PRN chest 05/25/18 Unknown Rx tablet pain #90 tabs aspirin 81 mg chewable tablet 81 mg PO DAILY@0800 HEALTH 06/16/22 02/19/24 History MAINTENANCE ezetimibe 10 mg tablet (Zetia) 10 mg PO DAILY DM 06/16/22 02/19/24 History empagliflozin 25 mg tablet 12.5 mg PO DAILY diabetes 11/24/22 02/19/24 History metoprolol tartrate 25 mg tablet 12.5 mg PO BID HEART/BLOOD PRESSURE 04/01/23 02/19/24 History tamsulosin 0.4 mg capsule 0.4 mg PO QHS prostate 05/14/23 02/19/24 History furosemide 40 mg tablet (Lasix) 40 mg PO DAILY fluid retention 06/03/23 02/19/24 History levothyroxine 200 mcg tablet 200 mcg PO DAILY 06/03/23 02/19/24 History (Euthyrox) albuterol sulfate 90 mcg/actuation 2 inh inhalation Q4H PRN sob 11/28/23 Unknown History aerosol inhaler losartan 100 mg tablet 100 mg PO DAILY 11/28/23 02/19/24 History insulin aspar prt-insulin aspart 32 unit subcut QHS 02/11/24 02/19/24 History 100 unit/mL (70-30) subcutaneous soln (Novolog Mix 70-30 U-100 Insuln) insulin aspar prt-insulin aspart 40 unit subcut 0800 02/11/24 02/19/24 History 100 unit/mL (70-30) subcutaneous soln (Novolog Mix 70-30 U-100 Insuln) budesonide 160 mcg-glycopyr 9 2 inh inhalation BID 02/20/24 02/19/24 History mcg-formot 4.8 mcg/actuation HFA inhaler (Breztri Aerosphere) metformin 1,000 mg tablet 2,000 mg PO QPM 02/20/24 02/19/24 History Allergy/AdvReac Type Severity Reaction Status Date / Time atorvastatin (From Lipitor) AdvReac Severe mylagia Verified 02/20/24 08:51 lanolin AdvReac Severe Rash Verified 02/20/24 08:51 Family History Sister CAD (coronary artery disease) Diabetes Brother CAD (coronary artery disease) Father Asthma Mother Cancer lung Surgical History Hx of cardiac catheterization (~01/19/17) S/P coronary artery stent placement (~04/05/18) History of coronary artery bypass surgery (~01/21/17) Social History household members: spouse Smoking Status: Former smoker how long ago did patient quit smokin alcohol intake: never substance use type: does not use caffeine: Yes Type: coffee Number of servings: 3 what type of physical activity do you participate in: none seatbelt use: always do you feel safe at home: Yes ROS ROS Narrative All review of systems were negative except as mentioned above in the history of present illness and the other review of systems. Vital Signs Vital Signs Vital Signs: 02/20/24 08:49 02/20/24 08:51 02/20/24 09:03 Temperature 35.3 C L Temperature Source Temporal Pulse Rate 91 Respiratory Rate 26 H Respiratory Effort Short of Breath Labored Respiratory Depth Respiratory Pattern Normal Blood Pressure 145/107 H Blood Pressure Mean 119 Pulse Ox 87 Oxygen Delivery Method Room Air Room Air Oxygen Flow Rate (L/min) 02/20/24 09:14 02/20/24 09:40 02/20/24 10:03 Temperature Temperature Source Pulse Rate 79 Respiratory Rate 27 H Respiratory Effort Short of Breath Labored Respiratory Depth Shallow Respiratory Pattern Tachypnea Blood Pressure 149/125 H Blood Pressure Mean 134 Pulse Ox 94 Oxygen Delivery Method Room Air Nasal Cannula Oxygen Flow Rate (L/min) 3 02/20/24 10:15 02/20/24 10:30 02/20/24 10:45 Temperature Temperature Source Pulse Rate 76 85 75 Respiratory Rate 26 H 26 H 25 H Respiratory Effort Respiratory Depth Respiratory Pattern Blood Pressure Blood Pressure Mean Pulse Ox Oxygen Delivery Method Oxygen Flow Rate (L/min) 02/20/24 11:00 02/20/24 11:09 Temperature 36.4 C L Temperature Source Pulse Rate 79 79 Respiratory Rate 19 H 19 H Respiratory Effort Respiratory Depth Respiratory Pattern Blood Pressure 122/76 H 122/76 H Blood Pressure Mean 92 91 Pulse Ox 90 Oxygen Delivery Method Oxygen Flow Rate (L/min) Weight Weight: 104.5 kg Body Mass Index (BMI) 30.4 Physical Exam Const alert and no apparent distress Constitutional Narrative: no respiratory distress. no conversational dyspnea. HEENT normocephalic, head/scalp atraumatic and hearing grossly normal bilaterally Neck no lymphadenopathy Neck Narrative: No JVD while sitting up. Resp normal respiratory effort and no retractions Resp Narrative: bibasilar crackles and diminished BS throughout. Cardio regular rate, regular rhythm, S1 normal heart sound and S2 normal heart sound GI normal to inspection, nondistended, normoactive bowel sounds, soft to palpation, non-tender and non-distended Extremity normal to inspection, full ROM and no clubbing, cyanosis or edema Neuro moves all extremities Sensorium / Orientation: awake and alert Psych affect normal Results Lab / Micro Data 02/20/24 09:10 02/20/24 09:10 Labs: Laboratory Results - last 24 hr 02/20/24 09:10: WBC 13.5 H, RBC 5.85, Hgb 16.7 H, Hct 52.8, MCV 90.3, MCH 28.5, MCHC 31.6 L, RDW Std Deviation 61.5 H, RDW Coeff of [place] 19.8 H, Plt Count 232, M PV 12.1 H, Immature Gran % (Auto) 0.700, Neut % (Auto) 80.9 H, Lymph % (Auto) 11.9 L, [place] % (Auto) 4.8, Eos % (Auto) 1.1, Baso % (Auto) 0.6, Absolute Neuts (auto) 10.9 H, Absolute Lymphs (auto) 1.60, Nucleated RBC % 0.3, Sodium 140, Potassium 3.8, Chloride 104, Carbon Dioxide 26.0, Anion Gap 11, BUN 32 H, C reatinine 1.73 H, Estim Creat Clear Calc 48.27, Est GFR (MDRD) Af Amer 50 L, Est GFR (MDRD) Non-Af 41 L, BUN/Creatinine Ratio 18.5, Glucose 144 H, Calcium 9.4, T roponin I High Sens 112 H, B-Natriuretic Peptide 1626.7 H Micro: Microbiology 02/20/24 09:11 Mucosa - Nose SARS-CoV-2, Influenza & RSV (PCR) - Final Rhythm Strip Rhythm Strip: Sinus Rhythm Rate: 82 Ectopy: None Imaging Radiology Impression Chest X-Ray 02/20/24 09:25 IMPRESSION: 1. Persistent bilateral pneumonia/atypical pulmonary edema, slightly worse on the right. 2. Stable cardiomegaly. Electronically Signed: Daniel García MD at 10:02 EST , Assessment & Plan Assessment/Plan (1) HFrEF (heart failure with reduced ejection fraction): PLAN: EF 25% from echo from 11/29/2023 Continue with IV furosemide. Fluid restrict. Daily weights. Continue empagliflozin, losartan and metoprolol tartrate (2) COPD exacerbation: PLAN: Diminshed BS bilaterally. CT shows emphasematous changes. [facility] has [facility] who has told him he has COPD like symptoms. Add methylprednisone, BDs. PLAN: Plan Chronic conditions: DM2: continue insulin mix and add SSI. metformin on hold given CHF hypothyroidism: continue levothyroxine CKD IIIb: stable. monitor VTE prophylaxis: SQ heparin Code status: DW pt--full code. Charges/Coding Visit Charges Inpatient E&M: 30427 Init Hosp L3
[2024-02-20 12:38] LABS: Troponin-I HS 124 pg/mL (3.0-78.0)
[2024-02-20] MEDS: Ipratropium/Albuterol Sulfate 3 ML AMPUL.NEB INHALATION ×2 (15:11→19:32)
[2024-02-20 15:44] LABS: Troponin-I HS 110 pg/mL (3.0-78.0)
[2024-02-20] MEDS: Furosemide 40 MG/4 ML Vial IV (16:49)
[2024-02-20] MEDS: Insulin Lispro 100 UNIT/ML INSULN.PEN SC ×2 (16:53→21:39)
[2024-02-20 17:08] LABS: Bedside Glucose 243 mg/dL (74-106)
[2024-02-20] MEDS: Heparin Injection (Vial) 5,000 UNIT/ML VIAL 5000 UNIT SC (21:39)
[2024-02-20] MEDS: Metoprolol Tartrate 25 MG Tablet 12.5 MG PO (21:39)
[2024-02-20] MEDS: Insulin Human 75/25 Kwickpen 32 UNIT SC (21:41)
[2024-02-20 21:59] LABS: Bedside Glucose 315 mg/dL (74-106)
[2024-02-21] VITALS (11 sets, daily range): BP systolic 108–144; BP diastolic 51–87; PULSE 59–66; RESP 16–18; TEMP 36.4–36.7; O2SAT 86–97; BMI 29.9
[2024-02-21] MEDS: Levothyroxine 100 MCG Tablet 200 MCG PO (05:20)
[2024-02-21] MEDS: 0.9% Saline Lock 10 ML Syringe IV ×4 (05:20→17:25)
[2024-02-21 06:45] LABS: Absolute Lymphocyte Count 1.21 X10^3/uL (0.83-4.51); Basophil# 0.02 X10^3/uL; Basophil% 0.2 % (0-1); Hematocrit 48.1 % (40-54); Hemoglobin 15.1 g/dL (13.0-16.5); Lymphocyte # 1.21 X10^3/ul (0.83-4.51); Lymphocyte % 11.5 % (19-41); Mean Corp Hgb Conc 31.4 g/dL (32-36); Mean Corpuscular Volume 89.2 fL (80-94); Mean Platelet Vol. 11.6 fl (6.2-12.0); Monocyte# 0.23 X10^3/uL; Monocyte% 2.2 % (0-10); NRBC Flagged by Analyzer 0 % (0-5); Neutrophil # 8.96 X10^3/uL (2.7-7.7); Neutrophil % 85.3 % (47-70); Platelet Count 203 K/mm3 (150-450); RBC Distribution Width SD 60.1 fl (35.1-43.9); Red Blood Count 5.39 M/mm3 (4.6-6.2); White Blood Count 10.5 K/mm3 (4.4-11.0)
[2024-02-21 07:12] LABS: Anion Gap 8 (5-15); BUN 45 mg/dL (7-18); BUN/Creat Ratio 24.9 RATIO (10-20); Calcium,Total 9.3 mg/dL (8.5-10.1); Chloride 104 mmol/L (98-107); Creatinine, Serum 1.81 mg/dL (0.70-1.30); EST Glomerular Filtration Rate 39 mL/min (>60); Est Glom Filt Rate - Afr Amer 47 mL/min (>60); Estimated Creatinine Clearance 45.83 ml/min; Glucose 299 mg/dL (74-106); Potassium 4.3 mmol/L (3.5-5.1); Sodium Level 136 mmol/L (136-145); Thyroid Stim Hormone (TSH) 0.164 uIU/mL (0.358-3.740)
[2024-02-21] MEDS: Ipratropium/Albuterol Sulfate 3 ML AMPUL.NEB INHALATION ×3 (07:15→22:11)
[2024-02-21] MEDS: Insulin Lispro 100 UNIT/ML INSULN.PEN SC ×4 (08:15→21:21)
[2024-02-21] MEDS: Aspirin 81 MG TAB.CHEW PO (08:15)
[2024-02-21] MEDS: Insulin Human 75/25 Kwickpen 40 UNIT SC (08:16)
[2024-02-21] MEDS: Metoprolol Tartrate 25 MG Tablet 12.5 MG PO ×2 (09:44→21:20)
[2024-02-21] MEDS: Heparin Injection (Vial) 5,000 UNIT/ML VIAL 5000 UNIT SC (09:46)
[2024-02-21] MEDS: Losartan Potassium 100 MG Tablet PO (09:46)
[2024-02-21] MEDS: Empagliflozin 25 MG Tablet 12.5 MG PO (09:46)
[2024-02-21] MEDS: Furosemide 40 MG/4 ML Vial IV ×2 (09:47→17:25)
--- NOTE | 2024-02-21 09:47 | PN.HOSP_ITS ---
Reason for Visit Reason for Visit: Diagnoses Unspecified systolic (congestive) heart failure (02/20/24) Chronic obstructive pulmonary disease with (acute) exacerbation (02/20/24) Subjective Subjective Patient is a 73-year-old gentleman with multiple comorbidities admitted with shortness of breath cough as well as exertional fatigue.Imaging studies obtained on admission demonstrated pulmonary vascular congestion. An assessment of acute congestive heart failure made admitted to monitored bed for further management Objective Data Objective Data Vital Signs: Vital Signs Temp Pulse Resp BP Pulse Ox O2 Del Method O2 Flow Rate 98.1 F 66 18 136/87 H 96 Nasal Cannula 2 02/21/24 09:41 02/21/24 09:41 02/21/24 09:41 02/21/24 09:41 02/21/24 09:41 02/21/24 09:41 02/21/24 09:41 Oxygen Flow Rate (L/min) 2 Oxygen Delivery Method Nasal Cannula Weight: 103 kg Body Mass Index (BMI) 29.9 Intake & Output: Intake and Output for Last 24 Hours 02/19/24 02/20/24 02/21/24 23:59 23:59 23:59 Intake Total 500 / 980 600 / 600 Output Total 1200 / 3275 2450 / 2450 Balance -700 / -2295 -1850 / -1850 Lab / Micro Data 02/21/24 05:56 02/21/24 05:56 Labs: Laboratory Results - last 24 hr 02/20/24 09:10: B-Natriuretic Peptide 1626.7 H 02/20/24 12:05: Troponin I High Sens 124 H* 02/20/24 15:10: Troponin I High Sens 110 H 02/20/24 16:48: POC Glucose 243 H 02/20/24 21:37: POC Glucose 315 H 02/21/24 05:56: WBC 10.5, RBC 5.39, Hgb 15.1, Hct 48.1, MCV 89.2, MCH 28.0, MCHC 31.4 L, RDW Std Deviation 60.1 H, RDW Coeff of [place] 19.0 H, Plt Count 203, MPV 11.6, Immature Gran % (Auto) 0.800, Neut % (Auto) 85.3 H, Lymph % (Auto) 11.5 L, [place] % (Auto) 2.2, Eos % (Auto) 0.0, Baso % (Auto) 0.2, Absolute Neuts (auto) 9.0 H, Absolute Lymphs (auto) 1.21, Nucleated RBC % 0, Sodium 136, Potassium 4.3, Chloride 104, Carbon Dioxide 24.0, Anion Gap 8, BUN 45 H, Creatinine 1.81 H , Estim Creat Clear Calc 45.83, Est GFR (MDRD) Af Amer 47 L, Est GFR (MDRD) Non- Af 39 L, BUN/Creatinine Ratio 24.9 H, Glucose 299 H, Calcium 9.3, TSH 0.164 L Micro: Microbiology 02/20/24 09:11 Mucosa - Nose SARS-CoV-2, Influenza & RSV (PCR) - Final Radiography Diagnostic Testing: Radiology Impression Chest X-Ray 02/20/24 09:25 IMPRESSION: 1. Persistent bilateral pneumonia/atypical pulmonary edema, slightly worse on the right. 2. Stable cardiomegaly. Electronically Signed: Daniel García MD at 10:02 EST , Rhythm Strip Rhythm Strip: Sinus Rhythm Rate: 82 Ectopy: None Physical Exam Narrative GENERAL: cooperative HEENT: Atraumatic; normocephalic EYES; Anicteric, Normal Conjunctiva NECK; supple, normal thyroid, RESPIRATORY: Diminished to auscultation CARDIOVASCULAR: Regular S1 S2, GI: soft, normoactive bowel sounds, : No Renal angle tenderness; EXTREMITIES: No edema, no clubbing, MUSCULOSKELETAL: no muscle wasting NEURO: Awake; no lateralizing signs. SKIN: No Rash PSYCH; Flat affect Assessment & Plan Assessment/Plan (1) HFrEF (heart failure with reduced ejection fraction): PLAN: Plan Patient is a 73-year-old gentleman with multiple comorbidities admitted with shortness of breath cough as well as exertional fatigue.Imaging studies obtained on admission demonstrated pulmonary vascular congestion. An assessment of acute congestive heart failure made admitted to monitored bed for further management 1. Acute hypoxia ? Secondary to acute on chronic congestive heart failure admitted to monitored bed with treatment of underlying etiology. Plan is for patient to be assessed for possible home oxygen needs prior to discharge 2. Acute on chronic congestive heart failure ? Echo obtained on 11/29/2023 did show The left ventricular ejection fraction is 25 %. Normal LV size. There is moderate to severe global hypokinesis of the left ventricle. Mild (1+) eccentric mitral valve insufficiency. Mild (1+) tricuspid valve insufficiency. Pulmonary artery systolic pressure is 30 mmHg. ?Admitted to monitored bed managed with strict input and output, daily weight, fluid restriction low-sodium diet as well as IV diuretic therapy #3. Coronary artery disease -Status post CABG-January [address] [facility] with THRASHER to LAD, reverse SVG to the posterior lateral left ventricular branch, and reverse SVG to obtuse marginal. Subsequent underwent angioplasty/PCI at [facility] to proximal ramus intermedius and mid left circumflex in March 2018. Patient is on guideline directed medical therapy 4. Sick sinus syndrome ? Status post pacemaker placement 5. Paroxysmal A-fib/flutter ? Rate controlled on systemic anticoagulation with Xarelto plan is to resume following home med reconciliation 6. Diabetes mellitus type II -patient's oral hypoglycemics held. Placed on long acting insulin, Accu-Cheks a.c. and at bedtime and covered with sliding scale insulin 7. BPH with lower urinary obstructive symptoms - Patient treated with tamsulosin 8. Chronic kidney disease stage III ? Patient kidney function did worsen with diuretics we will continue to monitor 9. Hypothyroidism ? Patient is on levothyroxine home dose continued 10. COPD ? With mild exacerbation patient treated with corticosteroid as well as bronchodilator treatment in addition to supplemental oxygen titrated to keep saturation greater than 90 11. Class I obesity with BMI of 30 ? Complicating care weight loss advised 12. Previous CVA ? With no residual effects ? Patient is on antiplatelet therapy with aspirin continue 13. DVT prophylaxis ? On Xarelto Time spent in the patient's overall evaluation,decision-making process, review of diagnostic data, adjustment of management, discussion with other providers, nursing nursing and ancillary staff involved in patient's care documentation, 53 Minutes Charges/Coding Visit Charges Inpatient E&M: 57002 [facility] L3
[2024-02-21] MEDS: Ezetimibe 10 MG Tablet PO (09:48)
[2024-02-21 11:33] LABS: Bedside Glucose 311 mg/dL (74-106)
[2024-02-21 11:35] LABS: Bedside Glucose 196 mg/dL (74-106)
--- NOTE | 2024-02-21 14:45 | CASEMGMT ---
RN CM Face to Face with patient for initial transition planning/care coordination assessment. RN CM introduced self and role at [facility]. Patient sitting in chair, alert and oriented. Patient willing to participate in assessment and is able to answer all questions appropriately. Care providers, pharmacy, and demographics verified. Strata: 3 PCP: Manpreet Mills Specialists: Pulp Plant Supervisor, Eliza LEDESMA; Keren, vet tech; Preferred Pharmacy: [facility] Insurance: [employer] [facility] Prescription Benefit: yes Living Will/HPOA: none LNOK: Living Arrangements: Patient lives with in a 2 story Townhouse. Patient is independent and able to ambulate stairs. Transportation: self, DME/HHC: Patient has shower chair, walker, glucometer, and bipap at home. No previous HHC or SNF. Will monitor for home oxygen Patient wishes to discharge home, denies need for home health at this time. Patient states he has no further needs or concerns at this time. CM to follow for discharge planning needs that may arise. Disposition Plan: Patient to discharge home with family support and follow-up plans in place. Josefina DEXTER, RN, CM
[2024-02-21 16:21] LABS: Bedside Glucose 214 mg/dL (74-106)
--- NOTE | 2024-02-21 16:30 | CHAPLAIN ---
Type of Pastoral Visit _x__ Initial Visit ___ Follow-up Visit ___ On-call Visit ___ General Patient Visit ___ Spiritual Assessment ___ Family Conference ___ Bereavement ___ Rapid Response ___ Code Blue ___ Other (describe below) Pastoral Care Referral From _x__ Patient ___ Family ___ Nurse ___ Physician ___ Freight Loader ___ Home Health Assistant ___ Other (describe below) Sacrament/Intervention _x__ Active listening ___ Anointing ___ Evangelical ___ Bereavement ___ Communion _x__ Estee exploration ___ _x__ Life review _x__ Prayer ___ Reconciliation ___ Sacrament of Sick _x__ Supportive presence ___ Wedding ___ Other (describe below) Pastoral Comments patient speaks of his health concern and the need to stay longer so more information can be given and a plan decided; pt talks mostly about his estee in God and how that is his source of help; pt has strong estee; pt gives some life review and includes his delight in having found his from [place] over 16 years ago; pt expresses his estee and how that helps him; pt expresses ideas about estee and the coming of the end times; pt welcomes prayer and presence
[2024-02-21] MEDS: Rivaroxaban 15 MG Tablet PO (17:24)
[2024-02-21] MEDS: Insulin Human 75/25 Kwickpen 32 UNIT SC (21:21)
[2024-02-21 23:11] LABS: Bedside Glucose 291 mg/dL (74-106)
[2024-02-22] VITALS (11 sets, daily range): BP systolic 93–120; BP diastolic 67–70; PULSE 58–82; RESP 16–18; TEMP 36.4–36.9; O2SAT 93–97; BMI 29.5
[2024-02-22] MEDS: Levothyroxine 100 MCG Tablet 200 MCG PO (06:15)
[2024-02-22 06:40] LABS: Absolute Lymphocyte Count 1.47 X10^3/uL (0.83-4.51); Absolute Neutrophil Count 15.6 X10^3/uL (2.0-7.7); Basophil# 0.04 X10^3/uL; Basophil% 0.2 % (0-1); Hematocrit 47.4 % (40-54); Hemoglobin 15.1 g/dL (13.0-16.5); Lymphocyte # 1.47 X10^3/ul (0.83-4.51); Lymphocyte % 8.1 % (19-41); Mean Corp Hgb Conc 31.9 g/dL (32-36); Mean Corpuscular Hgb 28.3 pg (27.0-32.0); Mean Corpuscular Volume 88.8 fL (80-94); Mean Platelet Vol. 11.6 fl (6.2-12.0); Monocyte# 0.84 X10^3/uL; Monocyte% 4.6 % (0-10); NRBC Flagged by Analyzer 0.1 % (0-5); Neutrophil # 15.63 X10^3/uL (2.7-7.7); Neutrophil % 86.4 % (47-70); Platelet Count 252 K/mm3 (150-450); RBC Distribution Width SD 59.6 fl (35.1-43.9); Red Blood Count 5.34 M/mm3 (4.6-6.2); White Blood Count 18.1 K/mm3 (4.4-11.0)
[2024-02-22] MEDS: Ipratropium/Albuterol Sulfate 3 ML AMPUL.NEB INHALATION ×4 (07:02→19:13)
--- NOTE | 2024-02-22 07:21 | PN.HOSP_ITS ---
Reason for Visit Reason for Visit: Diagnoses Unspecified systolic (congestive) heart failure (02/20/24) Chronic obstructive pulmonary disease with (acute) exacerbation (02/20/24) Subjective Subjective Patient continues to diurese well. Had a negative fluid balance of 3.145 L over the past 24 hours. There was slight worsening of kidney function necessitating consultation with nephro Objective Data Objective Data Vital Signs: Vital Signs Temp Pulse Resp BP Pulse Ox O2 Del Method O2 Flow Rate 98.1 F 63 18 93/70 94 Nasal Cannula 1 02/22/24 03:45 02/22/24 07:03 02/22/24 07:03 02/22/24 03:45 02/22/24 07:03 02/22/24 07:03 02/22/24 07:03 Oxygen Flow Rate (L/min) 1 Oxygen Delivery Method Nasal Cannula Weight: 101.4 kg Body Mass Index (BMI) 29.5 Intake & Output: Intake and Output for Last 24 Hours 02/20/24 02/21/24 02/22/24 23:59 23:59 23:59 Intake Total 500 / 980 600 / 600 Output Total 1200 / 3275 4495 / 4495 1100 / 1100 Balance -700 / -2295 -3895 / -3895 -1100 / -1100 Lab / Micro Data 02/22/24 06:04 02/22/24 06:04 Labs: Laboratory Results - last 24 hr 02/21/24 08:12: POC Glucose 311 H 02/21/24 11:14: POC Glucose 196 H 02/21/24 16:00: POC Glucose 214 H 02/21/24 21:19: POC Glucose 291 H 02/22/24 06:04: WBC 18.1 H, RBC 5.34, Hgb 15.1, Hct 47.4, MCV 88.8, MCH 28.3, M CHC 31.9 L, RDW Std Deviation 59.6 H, RDW Coeff of [place] 19.0 H, Plt Count 252, MPV 11.6, Immature Gran % (Auto) 0.700, Neut % (Auto) 86.4 H, Lymph % (Auto) 8.1 L, [place] % (Auto) 4.6, Eos % (Auto) 0.0, Baso % (Auto) 0.2, Absolute Neuts (auto) 15.6 H, Absolute Lymphs (auto) 1.47, Nucleated RBC % 0.1 Micro: Microbiology 02/20/24 09:11 Mucosa - Nose SARS-CoV-2, Influenza & RSV (PCR) - Final Rhythm Strip Rhythm Strip: Sinus Rhythm Rate: 82 Ectopy: None Physical Exam Narrative GENERAL: cooperative HEENT: Atraumatic; normocephalic EYES; Anicteric, Normal Conjunctiva NECK; supple, normal thyroid, RESPIRATORY: Diminished to auscultation CARDIOVASCULAR: Regular S1 S2, GI: soft, normoactive bowel sounds, : No Renal angle tenderness; EXTREMITIES: No edema, no clubbing, MUSCULOSKELETAL: no muscle wasting NEURO: Awake; no lateralizing signs. SKIN: No Rash PSYCH; Flat affect Assessment & Plan Assessment/Plan (1) HFrEF (heart failure with reduced ejection fraction): PLAN: Plan Patient is a 73-year-old gentleman with multiple comorbidities admitted with shortness of breath cough as well as exertional fatigue.Imaging studies obtained on admission demonstrated pulmonary vascular congestion. An assessment of acute congestive heart failure made admitted to monitored bed for further management 1. Acute hypoxia ? Secondary to acute on chronic congestive heart failure admitted to monitored bed with treatment of underlying etiology. Plan is for patient to be assessed for possible home oxygen needs prior to discharge 2. Acute on chronic congestive heart failure ? Echo obtained on 11/29/2023 did show The left ventricular ejection fraction is 25 %. Normal LV size. There is moderate to severe global hypokinesis of the left ventricle. Mild (1+) eccentric mitral valve insufficiency. Mild (1+) tricuspid valve insufficiency. Pulmonary artery systolic pressure is 30 mmHg. ?Admitted to monitored bed managed with strict input and output, daily weight, fluid restriction low-sodium diet as well as IV diuretic therapy ? 02/22/2024;Patient continues to diurese well. Had a negative fluid balance of 3.145 L over the past 24 hours. There was slight worsening of kidney function necessitating consultation with nephro 3. Coronary artery disease -Status post CABG-January 2017 at [facility] with THRASHER to LAD, reverse SVG to the posterior lateral left ventricular branch, and reverse SVG to obtuse marginal. Subsequent underwent angioplasty/PCI at [facility] to proximal ramus intermedius and mid left circumflex in March 2018. Patient is on guideline directed medical therapy 4. Sick sinus syndrome ? Status post pacemaker placement 5. Paroxysmal A-fib/flutter ? Rate controlled on systemic anticoagulation with Xarelto plan is to resume following home med reconciliation 6. Diabetes mellitus type II -patient's oral hypoglycemics held. Placed on long acting insulin, Accu-Cheks a.c. and at bedtime and covered with sliding scale insulin 7. BPH with lower urinary obstructive symptoms - Patient treated with tamsulosin 8. Chronic kidney disease stage III ? Patient kidney function did worsen with diuretics we will continue to monitor ? 02/22/2024; consult placed to nephrology 9. Hypothyroidism ? Patient is on levothyroxine home dose continued 10. COPD ? With mild exacerbation patient treated with corticosteroid as well as bronchodilator treatment in addition to supplemental oxygen titrated to keep saturation greater than 90 11. Class I obesity with BMI of 30 ? Complicating care weight loss advised 12. Previous CVA ? With no residual effects ? Patient is on antiplatelet therapy with aspirin continue 13. DVT prophylaxis ? On Xarelto Time spent in the patient's overall evaluation,decision-making process, review of diagnostic data, adjustment of management, discussion with other providers, nursing nursing and ancillary staff involved in patient's care documentation, 40 Minutes Charges/Coding Visit Charges Inpatient E&M: 91432 [facility] Hosp L2
[2024-02-22 08:23] LABS: Anion Gap 10 (5-15); BUN 62 mg/dL (7-18); BUN/Creat Ratio 33.9 RATIO (10-20); Calcium,Total 9.5 mg/dL (8.5-10.1); Chloride 108 mmol/L (98-107); Creatinine, Serum 1.83 mg/dL (0.70-1.30); EST Glomerular Filtration Rate 39 mL/min (>60); Est Glom Filt Rate - Afr Amer 47 mL/min (>60); Glucose 94 mg/dL (74-106); Magnesium 2.5 mg/dL (1.6-2.6); Phosphorus 4.6 mg/dL (2.5-4.9); Potassium 3.9 mmol/L (3.5-5.1); Sodium Level 140 mmol/L (136-145)
[2024-02-22] MEDS: Aspirin 81 MG TAB.CHEW PO (08:26)
[2024-02-22] MEDS: predniSONE 20 MG Tablet 40 MG PO (08:26)
[2024-02-22] MEDS: Insulin Human 75/25 Kwickpen 40 UNIT SC (08:32)
[2024-02-22 08:47] LABS: Bedside Glucose 81 mg/dL (74-106)
[2024-02-22] MEDS: Furosemide 40 MG/4 ML Vial IV ×2 (10:07→18:12)
[2024-02-22] MEDS: Empagliflozin 25 MG Tablet 12.5 MG PO (10:07)
[2024-02-22] MEDS: Losartan Potassium 100 MG Tablet PO (10:07)
[2024-02-22] MEDS: Metoprolol Tartrate 25 MG Tablet 12.5 MG PO ×2 (10:08→21:20)
[2024-02-22] MEDS: Ezetimibe 10 MG Tablet PO (10:08)
[2024-02-22] MEDS: 0.9% Saline Lock 10 ML Syringe IV ×2 (10:08→18:12)
[2024-02-22 11:33] LABS: Bedside Glucose 74 mg/dL (74-106)
[2024-02-22] MEDS: Insulin Lispro 100 UNIT/ML INSULN.PEN SC ×2 (16:59→21:22)
[2024-02-22] MEDS: Rivaroxaban 15 MG Tablet PO (17:00)
[2024-02-22 18:35] LABS: Bedside Glucose 155 mg/dL (74-106)
[2024-02-22] MEDS: Insulin Human 75/25 Kwickpen 32 UNIT SC (21:21)
[2024-02-22] MEDS: Tamsulosin HCl 0.4 MG Capsule PO (21:21)
[2024-02-22 21:49] LABS: Bedside Glucose 249 mg/dL (74-106)
[2024-02-23] VITALS (11 sets, daily range): BP systolic 104–116; BP diastolic 55–82; PULSE 58–74; RESP 16–18; TEMP 36.2–36.8; O2SAT 86–95
[2024-02-23 07:35] LABS: Absolute Neutrophil Count 13.2 X10^3/uL (2.0-7.7); Basophil# 0.02 X10^3/uL; Basophil% 0.1 % (0-1); Hematocrit 48.5 % (40-54); Hemoglobin 15.1 g/dL (13.0-16.5); Lymphocyte % 13.3 % (19-41); Mean Corp Hgb Conc 31.1 g/dL (32-36); Mean Corpuscular Hgb 27.8 pg (27.0-32.0); Mean Corpuscular Volume 89.3 fL (80-94); Mean Platelet Vol. 10.7 fl (6.2-12.0); Monocyte# 0.98 X10^3/uL; Monocyte% 5.9 % (0-10); NRBC Flagged by Analyzer 0 % (0-5); Platelet Count 251 K/mm3 (150-450); RBC Distribution Width CV 19.2 % (11.6-14.6); RBC Distribution Width SD 60.5 fl (35.1-43.9); Red Blood Count 5.43 M/mm3 (4.6-6.2); White Blood Count 16.5 K/mm3 (4.4-11.0)
[2024-02-23] MEDS: Ipratropium/Albuterol Sulfate 3 ML AMPUL.NEB INHALATION ×3 (07:57→15:00)
[2024-02-23 08:32] LABS: Anion Gap 11 (5-15); BUN 67 mg/dL (7-18); BUN/Creat Ratio 33.8 RATIO (10-20); Calcium,Total 9.3 mg/dL (8.5-10.1); Chloride 105 mmol/L (98-107); Creatinine, Serum 1.98 mg/dL (0.70-1.30); EST Glomerular Filtration Rate 35 mL/min (>60); Est Glom Filt Rate - Afr Amer 43 mL/min (>60); Estimated Creatinine Clearance 41.59 ml/min; Glucose 114 mg/dL (74-106); Potassium 3.7 mmol/L (3.5-5.1); Sodium Level 138 mmol/L (136-145)
[2024-02-23] MEDS: Insulin Human 75/25 Kwickpen 40 UNIT SC (08:59)
[2024-02-23] MEDS: Insulin Lispro 100 UNIT/ML INSULN.PEN SC ×2 (09:00→11:13)
[2024-02-23] MEDS: Aspirin 81 MG TAB.CHEW PO (09:01)
[2024-02-23] MEDS: Metoprolol Tartrate 25 MG Tablet 12.5 MG PO (09:01)
[2024-02-23] MEDS: predniSONE 20 MG Tablet 40 MG PO (09:02)
[2024-02-23] MEDS: Ezetimibe 10 MG Tablet PO (09:02)
[2024-02-23] MEDS: Losartan Potassium 100 MG Tablet PO (09:03)
[2024-02-23] MEDS: Furosemide 40 MG/4 ML Vial IV (09:03)
[2024-02-23] MEDS: Empagliflozin 25 MG Tablet 12.5 MG PO (09:03)
[2024-02-23 10:51] LABS: Bedside Glucose 154 mg/dL (74-106)
[2024-02-23 11:50] LABS: Bedside Glucose 209 mg/dL (74-106)
--- NOTE | 2024-02-23 12:57 | PCM.DC.SUM ---
Providers Date of Admission: 02/20/24 Date of Discharge: 02/23/24 Primary Care Physician: [facility] Consultations 02/22/24 10:28 Consult: Nephrology Routine Consulting Provider: Emile Espinal Reason for Consult: CKD EMERGENT Consult: No MD Notified: Yes Date Notified: 02/22/24 Time Notified: 10:42 Method of Notification: Answering Service Reason For Visit: CHF EXACERBATION Diagnosis Discharge Diagnosis (1) HFrEF (heart failure with reduced ejection fraction): Status: Acute Code(s): I50.20 - Unspecified systolic (congestive) heart failure Plan Patient is a 73-year-old gentleman with multiple comorbidities admitted with shortness of breath cough as well as exertional fatigue.Imaging studies obtained on admission demonstrated pulmonary vascular congestion. An assessment of acute congestive heart failure made admitted to monitored bed for further management 1. Acute hypoxia ? Secondary to acute on chronic congestive heart failure admitted to monitored bed with treatment of underlying etiology. Plan is for patient to be assessed for possible home oxygen needs prior to discharge I have reviewed the oxygen testing, and this patient qualifies for the home equipment and portability. The patient is mobile in the home and the community. 2. Acute on chronic congestive heart failure ? Echo obtained on 11/29/2023 did show The left ventricular ejection fraction is 25 %. Normal LV size. There is moderate to severe global hypokinesis of the left ventricle. Mild (1+) eccentric mitral valve insufficiency. Mild (1+) tricuspid valve insufficiency. Pulmonary artery systolic pressure is 30 mmHg. ?Admitted to monitored bed managed with strict input and output, daily weight, fluid restriction low-sodium diet as well as IV diuretic therapy ? 02/22/2024;Patient continues to diurese well. Had a negative fluid balance of 3.145 L over the past 24 hours. There was slight worsening of kidney function necessitating consultation with nephro 3. Coronary artery disease -Status post CABG-January 2017 at [facility] with THRASHER to LAD, reverse SVG to the posterior lateral left ventricular branch, and reverse SVG to obtuse marginal. Subsequent underwent angioplasty/PCI at [facility] to proximal ramus intermedius and mid left circumflex in March 2018. Patient is on guideline directed medical therapy 4. Sick sinus syndrome ? Status post pacemaker placement 5. Paroxysmal A-fib/flutter ? Rate controlled on systemic anticoagulation with Xarelto plan is to resume following home med reconciliation 6. Diabetes mellitus type II -patient's oral hypoglycemics held. Placed on long acting insulin, Accu-Cheks a.c. and at bedtime and covered with sliding scale insulin 7. BPH with lower urinary obstructive symptoms - Patient treated with tamsulosin 8. Chronic kidney disease stage III ? Patient kidney function did worsen with diuretics we will continue to monitor ? 02/22/2024; consult placed to nephrology 9. Hypothyroidism ? Patient is on levothyroxine home dose continued 10. COPD ? With mild exacerbation patient treated with corticosteroid as well as bronchodilator treatment in addition to supplemental oxygen titrated to keep saturation greater than 90 11. Class I obesity with BMI of 30 ? Complicating care weight loss advised 12. Previous CVA ? With no residual effects ? Patient is on antiplatelet therapy with aspirin continue 13. DVT prophylaxis ? On Xarelto Time spent in the patient's overall evaluation,decision-making process, review of diagnostic data, adjustment of management, discussion with other providers, nursing nursing and ancillary staff involved in patient's care documentation, 40 Minutes Medications at Discharge Home Medications nitroglycerin 0.4 mg sublingual tablet 0.4 mg sublingual Q5-15M PRN chest pain #90 tabs 05/25/18 aspirin 81 mg chewable tablet 81 mg PO DAILY@0800 HEALTH MAINTENANCE 06/16/22 ezetimibe 10 mg tablet (Zetia) 10 mg PO DAILY DM 06/16/22 empagliflozin 25 mg tablet 12.5 mg PO DAILY diabetes 11/24/22 metoprolol tartrate 25 mg tablet 12.5 mg PO BID HEART/BLOOD PRESSURE 04/01/23 tamsulosin 0.4 mg capsule 0.4 mg PO QHS prostate 05/14/23 furosemide 40 mg tablet (Lasix) 40 mg PO DAILY fluid retention 06/03/23 levothyroxine 200 mcg tablet (Euthyrox) 200 mcg PO DAILY 06/03/23 albuterol sulfate 90 mcg/actuation aerosol inhaler 2 inh inhalation Q4H PRN sob 11/28/23 losartan 100 mg tablet 100 mg PO DAILY 11/28/23 insulin aspar prt-insulin aspart 100 unit/mL (70-30) subcutaneous soln (Novolog Mix 70-30 U-100 Insuln) 32 unit subcut QHS 02/11/24 insulin aspar prt-insulin aspart 100 unit/mL (70-30) subcutaneous soln (Novolog Mix 70-30 U-100 Insuln) 40 unit subcut 0800 02/11/24 budesonide 160 mcg-glycopyr 9 mcg-formot 4.8 mcg/actuation HFA inhaler (Breztri Aerosphere) 2 inh inhalation BID 02/20/24 doxycycline hyclate 100 mg capsule 100 mg PO BID #14 caps 02/23/24 guaifenesin 1,200 mg tablet, extended release 12 hr (Mucinex) 1,200 mg PO BID #20 tabs 02/23/24 prednisone 20 mg tablet 40 mg (2 x 20 mg) PO BREAKFAST #10 tabs 02/23/24 rivaroxaban 15 mg tablet (Xarelto) 15 mg PO DINNER #0 tabs 02/23/24 Physical Exam Narrative GENERAL: cooperative HEENT: Atraumatic; normocephalic EYES; Anicteric, Normal Conjunctiva NECK; supple, normal thyroid, RESPIRATORY: Diminished to auscultation CARDIOVASCULAR: Regular S1 S2, GI: soft, normoactive bowel sounds, : No Renal angle tenderness; EXTREMITIES: No edema, no clubbing, MUSCULOSKELETAL: no muscle wasting NEURO: Awake; no lateralizing signs. SKIN: No Rash PSYCH; Flat affect Weight / BMI Weight Weight: 101.4 kg Body Mass Index (BMI) 29.5 ABG / Lab / Microbiology Data 02/23/24 03:25 02/23/24 03:25 Laboratory: Laboratory Results - last 24 hr 02/22/24 16:58: POC Glucose 155 H 02/22/24 21:18: POC Glucose 249 H 02/23/24 03:25: WBC 16.5 H, RBC 5.43, Hgb 15.1, Hct 48.5, MCV 89.3, MCH 27.8, MCHC 31.1 L, RDW Std Deviation 60.5 H, RDW Coeff of [place] 19.2 H, Plt Count 251, MPV 10.7, Immature Gran % (Auto) 0.700, Neut % (Auto) 80.0 H, Lymph % (Auto) 13.3 L, [place] % (Auto) 5.9, Eos % (Auto) 0.0, Baso % (Auto) 0.1, Absolute Neuts (auto) 13.2 H, Absolute Lymphs (auto) 2.20, Nucleated RBC % 0, Sodium 138, Potassium 3.7, Chloride 105, Carbon Dioxide 23.0, Anion Gap 11, BUN 67 H, Creatinine 1.98 H, Estim Creat Clear Calc 41.59, Est GFR (MDRD) Af Amer 43 L, Est GFR (MDRD) Non-Af 35 L, BUN/Creatinine Ratio 33.8 H, Glucose 114 H, Calcium 9.3 02/23/24 08:58: POC Glucose 154 H 02/23/24 11:12: POC Glucose 209 H Microbiology: Microbiology 02/20/24 09:11 Mucosa - Nose SARS-CoV-2, Influenza & RSV (PCR) - Final D/C Instructions Discharge Diet: 1800 Calorie Control Diet, 8 Cup Fluid Restriction and 2000 mg Sodium Diet Discharge Activity: Return to Normal Activity Call your doctor if you observe: Fever of 101 or Higher, Shortness of breath, Fainting spells and Chest pain DC O2, CPAP, BIPAP Needs RN Home O2 Qualification: Home O2 Qualification: Is the patient on home oxygen No 02/23/24 10:42 Home O2 Qualification: AT REST 1- Pulse Ox at rest 92 02/23/24 10:42 Home O2 Qualification: WITH AMBULATION 1- Pulse Ox with ambulation 87 02/23/24 10:42 1- Oxygen Flow Rate with 2 02/23/24 10:42 ambulation 2- Pulse Ox with ambulation 91 02/23/24 10:42 2- Oxygen Flow Rate with 3 02/23/24 10:42 ambulation Additional Home O2 Discharge instructions: Yes Type of respiratory needs?: Oxygen Oxygen frequency: Continuous Continuous oxygen liters per minute: 3L DC home with Oxygen: Yes Home O2 MD Review: I have reviewed the oxygen testing, and the patient qualifies for home oxygen equipment and portability. The patient is mobile in the home and the community. Meaningful Use Info Meaningful Use Meaningful Use Diagnoses (Choose all that apply): CHF CHF CORNELL/ARB ordered at discharge?: Yes Documented LVEF (%): 25 Ischemic Stroke Statin Dosing Therapy Reference: STATIN DOSE THERAPY REFERENCE: * Patients > 75 years receive moderate or high dose statin therapy. * Patients 75 years or YOUNGER should receive HIGH intensity statin dose unless contraindicated. You will be required to document reason for non-treatment if statin daily dose does not meet guidelines. HIGH DOSE STATIN THERAPY DAILY Atorvastatin > than or = to 40 mg Rosuvastatin > than or = to 20 mg Amlodipine + Atorvastatin > than or = to 2.5/40 mg Ezetimibe + Simvastatin 10/80 mg Simvastatin 80mg Discharge Plan Admission Admit Date/Time: 02/20/24 11:10 Attending Provider: James Valdivia Primary Care Provider: [facility] Consulting Providers: Sergei Trujillo; Emile Espinal Discharge Orders/Prescriptions Prescriptions: New prednisone 20 mg Tablet 40 mg PO BREAKFAST Qty: 10 0RF Xarelto 15 mg Tablet 15 mg PO DINNER Qty: 0 0RF guaifenesin [Mucinex] 1,200 mg tablet extended release 12hr 1,200 mg PO BID Qty: 20 0RF doxycycline hyclate 100 mg capsule 100 mg PO BID Qty: 14 0RF Continued nitroglycerin 0.4 mg tablet, sublingual 0.4 mg SUBLINGUAL Q5-15M PRN (Reason: chest pain) Qty: 90 6RF Rx Instructions: until response; do not exceed 3 doses per episode metoprolol tartrate 25 mg tablet 12.5 mg PO BID Rx Instructions: Hold for heart less than 50 or systolic blood pressure less than 100 mmHg. aspirin 81 MG tablet,chewable 81 mg PO DAILY@0800 ezetimibe [Zetia] 10 mg tablet 10 mg PO DAILY empagliflozin 25 mg tablet 12.5 mg PO DAILY tamsulosin 0.4 mg Capsule 0.4 mg PO QHS levothyroxine [Euthyrox] 200 mcg tablet 200 mcg PO DAILY furosemide [Lasix] 40 mg tablet 40 mg PO DAILY Rx Instructions: Take furosemide 80 mg at 10 AM if increased leg swelling or weight gain 5 pounds in 1 week. losartan 100 mg tablet 100 mg PO DAILY albuterol sulfate 90 mcg/actuation HFA aerosol inhaler 2 inh inhalation Q4H PRN (Reason: sob) insulin asp prt-insulin aspart [Novolog Mix 70-30 U-100 Insuln] 100 unit/mL (70-30) solution 32 unit subcut QHS insulin asp prt-insulin aspart [Novolog Mix 70-30 U-100 Insuln] 100 unit/mL (70-30) solution 40 unit subcut 0800 Breztri Aerosphere 160-9-4.8 mcg/actuation HFA aerosol inhaler 2 inh inhalation BID Discontinued metformin 1,000 mg tablet 2,000 mg PO QPM Other Ambulatory Orders: Basic Metabolic Profile (BMP) (Routine) Timeframe: 20240228 Facility: [facility] - Location: Laboratory Ordered By: Dr. James Valdivia Referrals / Follow Up: Emile Espinal MD [Med Staff - Consulting] - Within 2 Weeks [facility] [Primary [facility] Provider] - Within 2 Weeks Disposition Disposition (needs filled in before D/C Order can be placed): Home, Self Care Charges/Coding Visit Charges Inpatient E&M: 57660 Disch Hosp >30min
--- NOTE | 2024-02-23 15:00 | CASEMGMT ---
Patient has order for discharge. Patient qualifies for home oxygen. KATIE CM in to discuss needs at discharge. Pateint prefers to use [employer] under his [place] insurance. Patient denies further needs or help at discharge. KATIE HERNÁNDEZ received script from hospitalist and referral sent to [facility] via [facility]. KATIE HERNÁNDEZ arranged for tank to be delivered to patient's room for at discharge. Discharge plan updated.
== END 2024-02-23 15:54 | disposition home or self-care (01) | DRG 291 ==
LOC: ED 11:19 → PCU 11:20
PROVIDERS: Emergency Provider Emergency Medicine; Visit Provider Internal Medicine
DX: I13.0 Hypertensive heart and chronic kidney disease with heart failure and stage 1 through stage 4 chronic kidney disease, or unspecified chronic kidney disease (principal); I50.23 Acute on chronic systolic (congestive) heart failure; I24.89 Other forms of acute ischemic heart disease; J44.1 Chronic obstructive pulmonary disease with (acute) exacerbation; E11.22 Type 2 diabetes mellitus with diabetic chronic kidney disease; N18.32 Chronic kidney disease, stage 3b; E03.9 Hypothyroidism, unspecified; I08.1 Rheumatic disorders of both mitral and tricuspid valves; Z68.30 Body mass index [BMI] 30.0-30.9, adult; I48.0 Paroxysmal atrial fibrillation; I25.10 Atherosclerotic heart disease of native coronary artery without angina pectoris; E11.51 Type 2 diabetes mellitus with diabetic peripheral angiopathy without gangrene; E11.42 Type 2 diabetes mellitus with diabetic polyneuropathy; I42.9 Cardiomyopathy, unspecified; E78.5 Hyperlipidemia, unspecified; I49.5 Sick sinus syndrome; Z79.4 Long term (current) use of insulin; I25.2 Old myocardial infarction; N13.9 Obstructive and reflux uropathy, unspecified; R09.02 Hypoxemia; Z11.52 Encounter for screening for COVID-19; E66.811 Obesity, class 1; Z79.82 Long term (current) use of aspirin; Z79.84 Long term (current) use of oral hypoglycemic drugs; Z79.01 Long term (current) use of anticoagulants; Z79.890 Hormone replacement therapy; Z79.899 Other long term (current) drug therapy; Z87.891 Personal history of nicotine dependence; Z86.73 Personal history of transient ischemic attack (TIA), and cerebral infarction without residual deficits; Z86.718 Personal history of other venous thrombosis and embolism; Z95.0 Presence of cardiac pacemaker; Z95.1 Presence of aortocoronary bypass graft; Z95.5 Presence of coronary angioplasty implant and graft
CPT/HCPCS: 36415; 71045; 80048; 82962; 83735; 83880; 84100; 84443; 84484; 85025; 87631; 93005; 94640; 94668; 97161; 97166; 97802; 99285; A4216; J1940

== ENCOUNTER 2024-03-17 17:04 | Emergency (ER) | payer OTHER, SELFPAY ==
[2024-03-17] VITALS (8 sets, daily range): BP systolic 93–114; BP diastolic 54–90; PULSE 54–93; RESP 16–26; TEMP 36.4–36.8; O2SAT 87–95; BMI 29.5
--- NOTE | 2024-03-17 17:33 | EKG12_ITS ---
Test Reason : GENERAL Blood Pressure : */* mmHG Vent. Rate : 67 BPM Atrial Rate : 375 BPM P-R Int : 196 ms QRS Dur : 184 ms QT Int : 530 ms P-R-T Axes : * -82 120 degrees QTcB Int : 560 ms AV dual-paced rhythm with premature ventricular or aberrantly conducted complexes Abnormal ECG Confirmed by FABIOLA WILLETT, EDWIN ([id number]), electronic news gathering editor LANDON GARCIA ([id number]) on 03/20/2024 6:45:17 AM Referred By: Confirmed By: EDWIN HICKS MD
--- NOTE | 2024-03-17 17:34 | EX.ED.DYSGE1 ---
HPI History of Present Illness Chief Complaint: General Illness Informant: patient Narrative Narrative: 73-year-old male states that he woke this morning not feeling well. States he feels very fatigued. Notes a chronic cough that began in 2009 no significant change in that. He chronically wears home oxygen. Denies any diarrhea or vomiting. He notes some mild nasal congestion. No chest pain or palpitations. He has an extensive cardiac history including cardiomyopathy sick sinus syndrome paroxysmal atrial flutter coronary artery disease with stent placement CABG diabetes stroke. States that he was on Xarelto but discontinued it because of tasting blood in his mouth. He denies any fevers. [facility] Medical History CKD stage 3a, GFR 45-59 ml/min Cardiomyopathy Presence of cardiac pacemaker 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 atrioventricular block Peripheral neuropathy (HFpEF) heart failure with preserved ejection fraction History of DVT (deep vein thrombosis) BPH (benign prostatic hyperplasia) PAD (peripheral artery disease) CAD (coronary artery disease) WILLIAN treated with BiPAP Obesity Atrial flutter Hypothyroidism Atrial flutter by electrocardiogram CKD (chronic kidney disease) Aftercare following surgery of the circulatory system Thrombosis of left common femoral artery Left leg pain Palpitations NSVT (nonsustained ventricular tachycardia) History of non-ST elevation myocardial infarction (NSTEMI) Stroke CVA (cerebral vascular accident) Open wound of scalp Ischemic stroke Dizziness Essential (primary) hypertension Atherosclerosis of [place] coronary artery of [place] heart without angina pectoris Thyroid disorder Diabetes mellitus Hyperlipidemia Home Medications ?Medication ?Instructions ?Recorded ?Last Taken ?Type nitroglycerin 0.4 mg sublingual 0.4 mg sublingual Q5-15M PRN chest 05/25/18 Unknown Rx tablet pain #90 tabs aspirin 81 mg chewable tablet 81 mg PO DAILY@0800 HEALTH 06/16/22 02/19/24 History MAINTENANCE ezetimibe 10 mg tablet (Zetia) 10 mg PO DAILY DM 06/16/22 02/19/24 History empagliflozin 25 mg tablet 12.5 mg PO DAILY diabetes 11/24/22 02/19/24 History metoprolol tartrate 25 mg tablet 12.5 mg PO BID HEART/BLOOD PRESSURE 04/01/23 02/19/24 History tamsulosin 0.4 mg capsule 0.4 mg PO QHS prostate 05/14/23 02/19/24 History furosemide 40 mg tablet (Lasix) 40 mg PO DAILY fluid retention 06/03/23 02/19/24 History levothyroxine 200 mcg tablet 200 mcg PO DAILY thyroid 06/03/23 02/19/24 History (Euthyrox) albuterol sulfate 90 mcg/actuation 2 inh inhalation Q4H PRN sob 11/28/23 Unknown History aerosol inhaler losartan 100 mg tablet 100 mg PO DAILY blood pressure 11/28/23 02/19/24 History insulin aspar prt-insulin aspart 32 unit subcut QHS diabetes 02/11/24 02/19/24 History 100 unit/mL (70-30) subcutaneous soln (Novolog Mix 70-30 U-100 Insuln) insulin aspar prt-insulin aspart 40 unit subcut 0800 diabetes 02/11/24 02/19/24 History 100 unit/mL (70-30) subcutaneous soln (Novolog Mix 70-30 U-100 Insuln) budesonide 160 mcg-glycopyr 9 2 inh inhalation BID breathing 02/20/24 02/19/24 History mcg-formot 4.8 mcg/actuation HFA inhaler (Breztri Aerosphere) doxycycline hyclate 100 mg capsule 100 mg PO BID #14 caps 02/23/24 Unknown Rx guaifenesin 1,200 mg tablet, 1,200 mg PO BID #20 tabs 02/23/24 Unknown Rx extended release 12 hr (Mucinex) prednisone 20 mg tablet 40 mg (2 x 20 mg) PO BREAKFAST #10 02/23/24 Unknown Rx tabs rivaroxaban 15 mg tablet (Xarelto) 15 mg PO DINNER #0 tabs 02/23/24 Unknown Rx azithromycin 250 mg tablet 250 mg PO DAILY #4 TABLETS 03/17/24 Unknown Rx prednisone 20 mg tablet 60 mg (3 x 20 mg) PO DAILY #12 03/17/24 Unknown Rx TABLETS Allergy/AdvReac Type Severity Reaction Status Date / Time atorvastatin (From Lipitor) AdvReac Severe mylagia Verified 03/17/24 17:08 lanolin AdvReac Severe Rash Verified 03/17/24 17:08 Family History Sister CAD (coronary artery disease) Diabetes Brother CAD (coronary artery disease) Father Asthma Mother Cancer lung Surgical History Hx of cardiac catheterization (~01/19/17) S/P coronary artery stent placement (~04/05/18) History of coronary artery bypass surgery (~01/21/17) Social History household members: spouse Smoking Status: Former smoker how long ago did patient quit smokin alcohol intake: never substance use type: does not use caffeine: Yes Type: coffee Number of servings: 3 what type of physical activity do you participate in: none seatbelt use: always do you feel safe at home: Yes ROS ROS ED ROS Narrative Generalized weakness Constitutional Constitutional ED: Denies chills, fever(s) or weight loss Eyes Eyes: Denies change in vision or diplopia ENT ENT ED: Reports rhinorrhea; Denies ear pain or sore throat Cardiovascular Cardiovascular: Denies chest pain, orthopnea, palpitations or racing heartbeat Respiratory/Chest Respiratory/Chest: Reports cough and other Details: Chronic dyspnea no change ; Denies dyspnea or orthopnea Gastrointestinal Gastrointestinal: Denies abdominal pain, diarrhea, nausea or vomiting Genitourinary Genitourinary ED: Denies dysuria, hematuria or urinary frequency Musculoskeletal Musculoskeletal: Denies arthralgias or myalgias Integumentary Denies abscess or rash Neurologic Neurologic: Denies headache(s) or weakness Psychiatric Psychiatric: Denies anxiety, depression, suicidal ideation or suicidal thoughts Endocrine Endocrinology: Denies polydipsia, polyphagia or polyuria Allergic/Immunologic Allergic/Immunologic ED: Denies mouth swelling, tongue swelling or urticaria EXAM Physical Exam Const Vital Signs: 03/17/24 17:04 03/17/24 17:08 03/17/24 17:08 Temperature 97.5 F L 97.5 F L Temperature Source Oral Oral Pulse Rate 54 L 62 Pulse Rate [Lying] Pulse Rate [Sitting (for 1 minute prior to obtaining)] Pulse Rate [Standing (for 1 minute prior to obtaining)] Respiratory Rate 26 H 18 16 Respiratory Effort Blood Pressure 93/65 107/56 L Blood Pressure [Lying] Blood Pressure [Sitting (for 1 minute prior to obtaining)] Blood Pressure [Standing (for 1 minute prior to obtaining)] Blood Pressure Mean 74 73 Blood Pressure Mean [Lying] Blood Pressure Mean [Sitting (for 1 minute prior to obtaining)] Blood Pressure Mean [Standing (for 1 minute prior to obtaining)] Pulse Ox 87 93 92 Oxygen Delivery Method Room Air Nasal Cannula Nasal Cannula Oxygen Flow Rate (L/min) 3 3 03/17/24 17:13 03/17/24 17:33 03/17/24 17:34 Temperature Temperature Source Pulse Rate Pulse Rate [Lying] 60 Pulse Rate [Sitting (for 1 minute prior to obtaining)] 69 Pulse Rate [Standing (for 1 minute prior to obtaining)] 76 Respiratory Rate Respiratory Effort Labored Blood Pressure Blood Pressure [Lying] 114/57 L Blood Pressure [Sitting (for 1 minute prior to obtaining)] 103/80 Blood Pressure [Standing (for 1 minute prior to obtaining)] 104/54 L Blood Pressure Mean Blood Pressure Mean [Lying] 76 Blood Pressure Mean [Sitting (for 1 minute prior to obtaining)] 87 Blood Pressure Mean [Standing (for 1 minute prior to obtaining)] 70 Pulse Ox Oxygen Delivery Method Nasal Cannula Oxygen Flow Rate (L/min) 3 03/17/24 18:08 03/17/24 19:00 03/17/24 20:00 Temperature 98.3 F Temperature Source Oral Pulse Rate 64 62 93 Pulse Rate [Lying] Pulse Rate [Sitting (for 1 minute prior to obtaining)] Pulse Rate [Standing (for 1 minute prior to obtaining)] Respiratory Rate 16 20 H 19 H Respiratory Effort Blood Pressure 104/54 L 112/60 111/90 H Blood Pressure [Lying] Blood Pressure [Sitting (for 1 minute prior to obtaining)] Blood Pressure [Standing (for 1 minute prior to obtaining)] Blood Pressure Mean 70 77 97 Blood Pressure Mean [Lying] Blood Pressure Mean [Sitting (for 1 minute prior to obtaining)] Blood Pressure Mean [Standing (for 1 minute prior to obtaining)] Pulse Ox 92 93 93 Oxygen Delivery Method Nasal Cannula Nasal Cannula Nasal Cannula Oxygen Flow Rate (L/min) 3 3 3 03/17/24 20:51 Temperature 98.3 F Temperature Source Pulse Rate 63 Pulse Rate [Lying] Pulse Rate [Sitting (for 1 minute prior to obtaining)] Pulse Rate [Standing (for 1 minute prior to obtaining)] Respiratory Rate 19 H Respiratory Effort Blood Pressure 106/67 Blood Pressure [Lying] Blood Pressure [Sitting (for 1 minute prior to obtaining)] Blood Pressure [Standing (for 1 minute prior to obtaining)] Blood Pressure Mean 80 Blood Pressure Mean [Lying] Blood Pressure Mean [Sitting (for 1 minute prior to obtaining)] Blood Pressure Mean [Standing (for 1 minute prior to obtaining)] Pulse Ox 95 Oxygen Delivery Method Oxygen Flow Rate (L/min) Positive well nourished and well developed General Appearance ED: well developed and NAD HEENT Reports normocephalic, head/scalp atraumatic and moist mucous membranes Eyes PERRL and EOMs intact bilaterally Neck no lymphadenopathy, supple and no JVD Resp normal respiratory effort and clear to auscultation bilaterally Cardio regular rate, regular rhythm and no murmurs GI normal to inspection, nondistended, normoactive bowel sounds and non-tender Palpation: soft Back/Spine no CVA tenderness and normal ROM Extremity normal to inspection General Extremety ED: Negative for edema General Extremity: Negative for edema Neuro oriented x3 and CN's II-XII intact bilaterally Sensorium / Orientation: alert Motor Exam: strength 5/5 throughout Psych mental status grossly normal Mood & Affect: Negative for depressed or tearful Skin no rashes or lesions noted and no wounds MDM MDM MDM Narrative Medical decision making narrative: Differential diagnosis includes but not limited to cardiac dysrhythmia pulmonary embolism pneumonia viral syndrome dehydration anemia electrolyte abnormality White count 8.7 hemoglobin 14.9 platelet count of 213 BMP with a potassium of 3.4 creatinine 1.55 BUN of 33 BNP is up 1136 he has been higher before. I do not see significant peripheral edema my independent interpretation the chest x-ray is chronic changes no obvious pulmonary edema. His troponin is normal at 61. Lactic acid is normal at 1.9 glucose 172 urinalysis with no overt infection. CT of the chest was obtained given his underlying atrial flutter rhythm on the EKG and his lack of anticoagulation. This is negative for pulmonary embolism. Please see radiologist read for full details. There is some large unexpected mediastinal nodes. There are some changes in the periphery which she has had before but appears somewhat different. I do wonder if this could be like a pneumonitis like picture. He sees pulmonology at the [place] and he does not really know much about his pulmonary history. We talked about sarcoidosis carcinomatosis but he states he has not heard of these things before. Patient ambulated states that he felt pretty much his normal self. He did desat briefly down to 87%. He does have home oxygen at home. He does however state that his oxygen tubing is over 50 feet long. We talked about the potential need to increase his flow rate at home. He wonders if the machine is not working as well particularly at night and he wakes up tired and fatigued like he did today. And to give him a copy of his CT to take to his child specialist. We are going to try a short course of prednisone and some azithromycin see if this may help him overall. He is comfortable with this plan. He will continue to use his Lasix which she has been taking. Patient understands return instructions History & Record Review Discussion w/independent historian: Patient Additional record(s) reviewed:: Prior inpatient record, Prior ED visit and Prior labs Lab Data Attestation: I reviewed the patient's lab results. Labs: Laboratory Results - last 24 hr 03/17/24 03/17/24 17:38 17:59 WBC 8.7 RBC 5.25 Hgb 14.9 Hct 45.8 MCV 87.2 MCH 28.4 MCHC 32.5 RDW Std Deviation 55.4 H RDW Coeff of [place] 17.3 H Plt Count 213 MPV 11.2 Immature Gran % (Auto) 0.500 Neut % (Auto) 71.0 H Lymph % (Auto) 19.1 Cook % (Auto) 5.4 Eos % (Auto) 3.2 Baso % (Auto) 0.8 Absolute Neuts (auto) 6.2 Absolute Lymphs (auto) 1.67 Nucleated RBC % 0 Sodium 137 Potassium 3.4 L Chloride 102 Carbon Dioxide 30.0 Anion Gap 5 BUN 33 H Creatinine 1.55 H Estim Creat Clear Calc 53.15 Est GFR (MDRD) Af Amer 57 L Est GFR (MDRD) Non-Af 47 L BUN/Creatinine Ratio 21.3 H Glucose 172 H Lactic Acid 1.9 Calcium 8.7 Total Bilirubin 0.90 Direct Bilirubin 0.32 H AST 14 L ALT 16 Alkaline Phosphatase 74 Troponin I High Sens 61 B-Natriuretic Peptide 1136.8 H Total Protein 7.3 Albumin 2.3 L Globulin 5.0 H Urine Color Yellow Urine Clarity Clear Urine pH 6.0 Ur Specific [place] 1.010 Urine Protein 30 H Urine Glucose (UA) 1000 H Urine Ketones Negative Urine Occult Blood Negative Urine Nitrite Negative Urine Bilirubin Negative Urine Urobilinogen Normal Ur Leukocyte Esterase Negative Urine RBC 0-5 SEEN Urine WBC 0-5 SEEN Ur Squamous Epith Cells 0-5 SEEN Urine Bacteria 1+ Hyaline Casts 0-5 SEEN Urine Mucus 0 SEEN Radiography Diagnostic Testing: Clinical Impression(s) from Imaging Studies Chest X-Ray 03/17/24 17:45 IMPRESSION: Interval worsening in bilateral interstitial and airspace opacities. Otherwise, no change from prior study. Electronically Signed: Ganesh Franco MD at 18:44 EST , Chest CTA 03/17/24 19:39 IMPRESSION: No acute pulmonary emboli to the segmental level. Bilateral groundglass opacities with irregular thickened intralobular septa. Etiologies include but are not limited to lymphangitic carcinomatosis, lymphoid interstitial pneumonia and sarcoidosis. Mediastinal lymphadenopathy. Moderate cardiomegaly with small bilateral pleural effusions. Electronically Signed: Ganesh Franco MD at 20:31 EST , Discharge Plan Triage Chief Complaint: General Illness ED Provider: Forrest Guzman Dx/Rx/DC Orders Clinical Impression: Atrial flutter, CHF (congestive heart failure), Weakness, Chronic hypoxemic respiratory failure Prescriptions: New azithromycin 250 mg tablet 250 mg PO DAILY Qty: 4 0RF prednisone 20 mg tablet 60 mg PO DAILY Qty: 12 0RF No Action nitroglycerin 0.4 mg tablet, sublingual 0.4 mg SUBLINGUAL Q5-15M PRN (Reason: chest pain) Qty: 90 6RF Rx Instructions: until response; do not exceed 3 doses per episode metoprolol tartrate 25 mg tablet 12.5 mg PO BID Rx Instructions: Hold for heart less than 50 or systolic blood pressure less than 100 mmHg. aspirin 81 MG tablet,chewable 81 mg PO DAILY@0800 ezetimibe [Zetia] 10 mg tablet 10 mg PO DAILY empagliflozin 25 mg tablet 12.5 mg PO DAILY tamsulosin 0.4 mg Capsule 0.4 mg PO QHS levothyroxine [Euthyrox] 200 mcg tablet 200 mcg PO DAILY furosemide [Lasix] 40 mg tablet 40 mg PO DAILY Rx Instructions: Take furosemide 80 mg at 10 AM if increased leg swelling or weight gain 5 pounds in 1 week. losartan 100 mg tablet 100 mg PO DAILY albuterol sulfate 90 mcg/actuation HFA aerosol inhaler 2 inh inhalation Q4H PRN (Reason: sob) insulin asp prt-insulin aspart [Novolog Mix 70-30 U-100 Insuln] 100 unit/mL (70-30) solution 32 unit subcut QHS insulin asp prt-insulin aspart [Novolog Mix 70-30 U-100 Insuln] 100 unit/mL (70-30) solution 40 unit subcut 0800 Breztri Aerosphere 160-9-4.8 mcg/actuation HFA aerosol inhaler 2 inh inhalation BID prednisone 20 mg Tablet 40 mg PO BREAKFAST Qty: 10 0RF Xarelto 15 mg Tablet 15 mg PO DINNER Qty: 0 0RF guaifenesin [Mucinex] 1,200 mg tablet extended release 12hr 1,200 mg PO BID Qty: 20 0RF doxycycline hyclate 100 mg capsule 100 mg PO BID Qty: 14 0RF [facility] [[facility] - Activity Restrictions/Additional Instructions: I would recommend calling [facility] for a follow-up appointment. Please take a copy of your CT and the CT reading to them. Please check your oxygen concentrator at home Please return if worsening or concerns particularly fever or change in breathing Print Language: Hungarian Disposition Disposition: Home, Self Care Discharge Date/Time: 03/17/24 20:57
--- NOTE | 2024-03-17 17:45 | RAD_ITS ---
INDICATION: cough EXAMINATION/TECHNIQUE: X-RAY - XR Chest 1 View COMPARISON: 02/20/2024. FINDINGS: Interval worsening in bilateral interstitial and airspace opacities. The cardiomediastinal silhouette is stable. Left-sided cardiac device. Questionable trace bilateral pleural effusions. No pneumothorax. The osseous structures are unchanged. RAD/Chest 1 View (Portable) IMPRESSION: Interval worsening in bilateral interstitial and airspace opacities. Otherwise, no change from prior study. Electronically Signed: Ganesh Franco MD at 18:44 EST ,
[2024-03-17 17:48] LABS: Absolute Lymphocyte Count 1.67 X10^3/uL (0.83-4.51); Absolute Neutrophil Count 6.2 X10^3/uL (2.0-7.7); Basophil# 0.07 X10^3/uL; Basophil% 0.8 % (0-1); Eosinophil# 0.28 X10^3/uL; Eosinophils% 3.2 % (0-5); Hematocrit 45.8 % (40-54); Hemoglobin 14.9 g/dL (13.0-16.5); Lymphocyte # 1.67 X10^3/ul (0.83-4.51); Lymphocyte % 19.1 % (19-41); Mean Corp Hgb Conc 32.5 g/dL (32-36); Mean Corpuscular Hgb 28.4 pg (27.0-32.0); Mean Corpuscular Volume 87.2 fL (80-94); Mean Platelet Vol. 11.2 fl (6.2-12.0); Monocyte# 0.47 X10^3/uL; Monocyte% 5.4 % (0-10); NRBC Flagged by Analyzer 0 % (0-5); Neutrophil # 6.21 X10^3/uL (2.7-7.7); Platelet Count 213 K/mm3 (150-450); RBC Distribution Width CV 17.3 % (11.6-14.6); RBC Distribution Width SD 55.4 fl (35.1-43.9); Red Blood Count 5.25 M/mm3 (4.6-6.2); White Blood Count 8.7 K/mm3 (4.4-11.0)
[2024-03-17 18:04] LABS: Mucous, Urine 0 SEEN /hpf (<or=2+)
[2024-03-17 18:10] LABS: Color, Urine Yellow (Yellow); Glucose, Dipstick 1000 mg/dl (Normal); Ketone-Dipstick Negative (Negative); Leukocyte Esterase-Dipstick Negative /ul (Negative); Nitrite-Dipstick Negative (Negative); Occult Blood-Urine Negative /ul (Negative); Protein-Dipstick 30 mg/dl (Negative); Urine Bilirubin Dipstick Negative (Negative); Urine Clarity Clear (Clear); Urine Urobilinogen Normal (Normal)
[2024-03-17 18:10] LABS: AST(SGOT) 14 U/L (15-37); Alanine Aminotransfer ALT/SGPT 16 U/L (16-61); Albumin, Serum 2.3 g/dL (3.2-5.0); Alkaline Phosphatase 74 U/L (45-117); Anion Gap 5 (5-15); BUN 33 mg/dL (7-18); BUN/Creat Ratio 21.3 RATIO (10-20); Bilirubin, Direct 0.32 mg/dL (0.00-0.30); Calcium,Total 8.7 mg/dL (8.5-10.1); Chloride 102 mmol/L (98-107); Creatinine, Serum 1.55 mg/dL (0.70-1.30); EST Glomerular Filtration Rate 47 mL/min (>60); Est Glom Filt Rate - Afr Amer 57 mL/min (>60); Estimated Creatinine Clearance 53.15 ml/min; Glucose 172 mg/dL (74-106); Potassium 3.4 mmol/L (3.5-5.1); Protein, Total 7.3 g/dL (6.4-8.2); Sodium Level 137 mmol/L (136-145); Troponin-I HS 61 pg/mL (3.0-78.0)
[2024-03-17 18:12] LABS: Lactic Acid 1.9 mmol/L (0.4-1.9)
[2024-03-17 18:27] LABS: BNP,B-Type NATRIURETIC PEPTIDE 1136.8 pg/mL (0-100)
[2024-03-17 18:45] LABS: Bacteria 1+ /hpf (None Seen)
[2024-03-17 18:46] LABS: Hyaline Cast 0-5 SEEN /lpf (0-5); Red Blood Cells-Urine 0-5 SEEN /hpf (0-5); White Blood Cells 0-5 SEEN /hpf (0-5)
[2024-03-17 18:48] LABS: Squamous Epithelial Cells - UA 0-5 SEEN /hpf (0-5)
--- NOTE | 2024-03-17 19:39 | CT_ITS ---
INDICATION: pulmonary embolism EXAMINATION: CTA Chest WO/W Contrast Injection TECHNIQUE: Helically acquired images were obtained of the chest following administration of IV contrast. A radiation dose optimization technique was used for this scan. 3D postprocessing images including MIPS were reviewed. IV Contrast dosage and agent: IV 100mL Isovue-370 COMPARISON: 02/11/2024. FINDINGS: Lungs: Bilateral reticular and groundglass opacities. There is irregular intralobular septal thickening. There is emphysematous changes. Mediastinum: The heart is moderately enlarged. There is mediastinal lymphadenopathy. No hilar or axillary lymphadenopathy. Mild aortic arch and coronary artery calcifications. No obvious filling defect seen within the visualized pulmonary arteries. Pleura: Small bilateral pleural effusions. Bones/Soft tissues: There are diffuse degenerative changes of the spine. Upper abdomen: No visualized abnormalities in the upper abdomen. CT/CTA Chest W/WO Contrast IMPRESSION: No acute pulmonary emboli to the segmental level. Bilateral groundglass opacities with irregular thickened intralobular septa. Etiologies include but are not limited to lymphangitic carcinomatosis, lymphoid interstitial pneumonia and sarcoidosis. Mediastinal lymphadenopathy. Moderate cardiomegaly with small bilateral pleural effusions. Electronically Signed: Ganesh Franco MD at 20:31 EST ,
[2024-03-17] MEDS: predniSONE 20 MG Tablet 60 MG PO (20:54)
[2024-03-17] MEDS: Azithromycin 250 MG Tablet 500 MG PO (20:54)
== END 2024-03-17 20:57 | disposition home or self-care (01) ==
PROVIDERS: Emergency Provider Emergency Medicine; Visit Provider Emergency Medicine
DX: J96.11 Chronic respiratory failure with hypoxia (principal); I13.0 Hypertensive heart and chronic kidney disease with heart failure and stage 1 through stage 4 chronic kidney disease, or unspecified chronic kidney disease; I50.32 Chronic diastolic (congestive) heart failure; I48.0 Paroxysmal atrial fibrillation; I48.92 Unspecified atrial flutter; E11.42 Type 2 diabetes mellitus with diabetic polyneuropathy; E11.22 Type 2 diabetes mellitus with diabetic chronic kidney disease; N18.31 Chronic kidney disease, stage 3a; Z95.5 Presence of coronary angioplasty implant and graft; Z87.891 Personal history of nicotine dependence; I25.10 Atherosclerotic heart disease of native coronary artery without angina pectoris; E78.5 Hyperlipidemia, unspecified; Z86.73 Personal history of transient ischemic attack (TIA), and cerebral infarction without residual deficits; Z86.718 Personal history of other venous thrombosis and embolism; Z79.52 Long term (current) use of systemic steroids; R53.1 Weakness; R05.3 Chronic cough
CPT/HCPCS: 71045; 71275; 80048; 80076; 81001; 83605; 83880; 84484; 85025; 87631; 93005; 99284; Q9967

== ENCOUNTER 2024-03-28 06:39 | Emergency (ER) | payer OTHER, SELFPAY ==
[2024-03-28 06:43] VITALS: BP 131/70; PULSE 62; PULSE 76; RESP 18; RESP 19; TEMP 36.6; O2SAT 87; O2SAT 92; O2SAT 95; BMI 27.0
--- NOTE | 2024-03-28 06:43 | CT_ITS ---
We are attempting to reach an attending provider to discuss findings. An addendum with communication details will be sent when the communication is complete. EXAM: CT HEAD WITHOUT INTRAVENOUS CONTRAST CLINICAL INDICATION: Neuro deficit, acute, stroke suspected TECHNIQUE: Multiple axial images were obtained of the head without intravenous contrast. This CT exam was performed using one or more of the following dose reduction techniques: automated exposure control, adjustment of the mA and/or kV according to patient size, and/or use of iterative reconstruction technique. COMPARISON: Head CT 03/17/2023 FINDINGS: BRAIN AND EXTRA-AXIAL SPACES: Diffuse cerebral volume loss. Periventricular small vessel ischemic changes. Stable areas of encephalomalacia in the occipital lobes. No intra- or extra-axial hemorrhage. No intracranial mass or mass effect. Normal variant colleen cisterna magna. Posterior fossa structures are otherwise unremarkable. No hydrocephalus. Basal cisterns are patent. BONES/JOINTS: Unremarkable. No discrete lytic or blastic abnormalities. VASCULATURE: Vascular calcifications. SINUSES: Unremarkable as visualized. Clear. MASTOID AIR CELLS: Unremarkable. Clear. ORBITS: Visualized globes, extraocular muscles, optic nerves and retrobulbar fat appear unremarkable. ASPECTS: 10. CT/STROKE Brain/Head without Cont IMPRESSION: 1. No acute intracranial abnormalities. 2. Age-related changes. Electronically Signed: Russ Silva MD at 6:58 EST ,
--- NOTE | 2024-03-28 06:43 | EKG12_ITS ---
Test Reason : NEURO Blood Pressure : */* mmHG Vent. Rate : 65 BPM Atrial Rate : 48 BPM P-R Int : 200 ms QRS Dur : 188 ms QT Int : 508 ms P-R-T Axes : * -76 120 degrees QTcB Int : 528 ms AV dual-paced rhythm with occasional ventricular-paced complexes and with occasional Premature ventri cular complexes Abnormal ECG Confirmed by Antonio Clifford ([id number]), editor in chief newspaper LANDON GARCIA ([id number]) on 03/29/2024 8:24:22 AM Referred By: Confirmed By: Antonio Clifford
--- NOTE | 2024-03-28 06:43 | CT_ITS ---
EXAM: CT ANGIOGRAPHY HEAD AND NECK WITH INTRAVENOUS CONTRAST CLINICAL INDICATION: Neuro deficit, acute, stroke suspected TECHNIQUE: [place]/head and neck CT angiography protocol performed with intravenous contrast. This CT exam was performed using one or more of the following dose reduction techniques: automated exposure control, adjustment of the mA and/or kV according to patient size, and/or use of iterative reconstruction technique. MIP reconstructed images were created and reviewed. CONTRAST: IV 100mL Isovue-370 RADIATION DOSE: CTDIvol = 25.96 mGy, DLP = 1592.12 mGy-cm COMPARISON: No relevant prior studies available. FINDINGS: HEAD: RIGHT ANTERIOR CEREBRAL ARTERY: Unremarkable. No occlusion or significant stenosis. Anterior communicating artery is present. No aneurysm. RIGHT MIDDLE CEREBRAL ARTERY: There is a large vessel occlusion involving the distal portion of the M1 segment of the right middle cerebral artery. Significantly diminished flow within the right MCA territory. No aneurysm. RIGHT POSTERIOR CEREBRAL ARTERY: Unremarkable. No occlusion or significant stenosis. No aneurysm. RIGHT INTRACRANIAL INTERNAL CAROTID ARTERY: Mild stenosis in the cavernous sinus segment. No dissection or occlusion. RIGHT INTRACRANIAL VERTEBRAL ARTERY: Diminutive, terminating as the right PICA, normal variant. No significant stenosis. No dissection or occlusion. LEFT ANTERIOR CEREBRAL ARTERY: Unremarkable. No occlusion or significant stenosis. No aneurysm. LEFT MIDDLE CEREBRAL ARTERY: Unremarkable. No occlusion or significant stenosis. No aneurysm. LEFT POSTERIOR CEREBRAL ARTERY: Unremarkable. No occlusion or significant stenosis. No aneurysm. LEFT INTRACRANIAL INTERNAL CAROTID ARTERY: Mild stenosis in the cavernous sinus segment. No dissection or occlusion. LEFT INTRACRANIAL VERTEBRAL ARTERY: Dominant, providing the sole supply to the basilar artery, normal variant. No significant stenosis. No dissection or occlusion. BASILAR ARTERY: Unremarkable. No occlusion or significant stenosis. No aneurysm. OTHER VASCULATURE: No vascular malformation. NECK: RIGHT COMMON CAROTID ARTERY: Unremarkable. No significant stenosis. No dissection or occlusion. RIGHT EXTRACRANIAL INTERNAL CAROTID ARTERY: Unremarkable. No significant stenosis. No dissection or occlusion. RIGHT EXTERNAL CAROTID ARTERY: Unremarkable. No occlusion. RIGHT EXTRACRANIAL VERTEBRAL ARTERY: Diminutive, normal variant. No significant stenosis. No dissection or occlusion. LEFT COMMON CAROTID ARTERY: Unremarkable. No significant stenosis. No dissection or occlusion. LEFT EXTRACRANIAL INTERNAL CAROTID ARTERY: Mild stenosis proximally, less than 50%. No dissection or occlusion. LEFT EXTERNAL CAROTID ARTERY: Unremarkable. No occlusion. LEFT EXTRACRANIAL VERTEBRAL ARTERY: Dominant, normal variant. No significant stenosis. No dissection or occlusion. THYROID: Thyroidectomy. BRACHIOCEPHALIC AND SUBCLAVIAN ARTERIES: Unremarkable as visualized. No occlusion or significant stenosis. LUNG APICES: Some patchy airspace disease in the lung apices with small left pleural effusion. HEAD and NECK: BONES/JOINTS: Unremarkable. No discrete lytic or blastic abnormalities. SOFT TISSUES: Unremarkable. CAROTID STENOSIS REFERENCE USING NASCET CRITERIA: % ICA stenosis = (1 - narrowest ICA diameter/diameter of distal cervical ICA) x 100. Mild - <50% stenosis. Moderate - 50-69% stenosis. Severe - 70-94% stenosis. Near occlusion - 95-99% stenosis. Occluded - 100% stenosis. CT/STROKE CTA Head AND Neck W/Con IMPRESSION: 1. There is a large vessel occlusion involving the distal portion of the M1 segment of the right middle cerebral artery. Significantly diminished flow within the right MCA territory. 2. No other acute arterial abnormalities identified in the head/neck. 3. Some patchy airspace disease in the lung apices with small left pleural effusion. Findings may indicate pneumonia. N.B. : The above Results were Read Back by Russ Silva MD to Forrest Guzman DO, and understanding confirmed on 03/28/2024 07:14:36 (ET). Electronically Signed: Russ Silva MD at 7:11 EST ,
[2024-03-28 06:50] LABS: Absolute Lymphocyte Count 2.37 X10^3/uL (0.83-4.51); Absolute Neutrophil Count 9.5 X10^3/uL (2.0-7.7); Basophil# 0.12 X10^3/uL; Basophil% 0.9 % (0-1); Eosinophil# 0.23 X10^3/uL; Eosinophils% 1.7 % (0-5); Hematocrit 50.4 % (40-54); Hemoglobin 16.2 g/dL (13.0-16.5); Lymphocyte # 2.37 X10^3/ul (0.83-4.51); Lymphocyte % 17.3 % (19-41); Mean Corp Hgb Conc 32.1 g/dL (32-36); Mean Corpuscular Hgb 28.5 pg (27.0-32.0); Mean Corpuscular Volume 88.7 fL (80-94); Mean Platelet Vol. 11.3 fl (6.2-12.0); NRBC Flagged by Analyzer 0 % (0-5); Neutrophil # 9.48 X10^3/uL (2.7-7.7); Neutrophil % 69.3 % (47-70); Platelet Count 286 K/mm3 (150-450); RBC Distribution Width CV 17.6 % (11.6-14.6); RBC Distribution Width SD 55.5 fl (35.1-43.9); Red Blood Count 5.68 M/mm3 (4.6-6.2); White Blood Count 13.7 K/mm3 (4.4-11.0)
[2024-03-28 07:09] LABS: Anion Gap 4 (5-15); BUN 31 mg/dL (7-18); Calcium,Total 9.1 mg/dL (8.5-10.1); Chloride 102 mmol/L (98-107); Creatinine, Serum 1.35 mg/dL (0.70-1.30); EST Glomerular Filtration Rate 55 mL/min (>60); Est Glom Filt Rate - Afr Amer 67 mL/min (>60); Estimated Creatinine Clearance 55.08 ml/min; Glucose 98 mg/dL (74-106); Potassium 3.5 mmol/L (3.5-5.1); Sodium Level 139 mmol/L (136-145); Troponin-I HS 147 pg/mL (3.0-78.0)
--- NOTE | 2024-03-28 07:12 | EX.ED.DYSGE1 ---
HPI History of Present Illness Chief Complaint: Stroke Alert Informant: patient, spouse/S.O. and EMS Narrative Narrative: 73-year-old male presenting to the emergency room as a prehospital stroke alert. states that the patient went to bed at 2000 hours last night looking his normal self. He was recently in the emergency department was diagnosed with more of a bronchitis-like picture. At that visit he had made mention that he had stopped his Xarelto due to tasting blood. He has an underlying atrial flutter rhythm. states that she heard a thud this morning and found him next to the bed. She noticed that he had slurred speech and was not moving the left side of his body. EMS was called they brought him to the hospital. [facility] Medical History CKD stage 3a, GFR 45-59 ml/min Cardiomyopathy Presence of cardiac pacemaker 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 atrioventricular block Peripheral neuropathy (HFpEF) heart failure with preserved ejection fraction History of DVT (deep vein thrombosis) BPH (benign prostatic hyperplasia) PAD (peripheral artery disease) CAD (coronary artery disease) WILLIAN treated with BiPAP Obesity Atrial flutter Hypothyroidism Atrial flutter by electrocardiogram CKD (chronic kidney disease) Aftercare following surgery of the circulatory system Thrombosis of left common femoral artery Left leg pain Palpitations NSVT (nonsustained ventricular tachycardia) History of non-ST elevation myocardial infarction (NSTEMI) Stroke CVA (cerebral vascular accident) Open wound of scalp Ischemic stroke Dizziness Essential (primary) hypertension Atherosclerosis of [place] coronary artery of [place] heart without angina pectoris Thyroid disorder Diabetes mellitus Hyperlipidemia Home Medications ?Medication ?Instructions ?Recorded ?Last Taken ?Type nitroglycerin 0.4 mg sublingual 0.4 mg sublingual Q5-15M PRN chest 05/25/18 Unknown Rx tablet pain #90 tabs aspirin 81 mg chewable tablet 81 mg PO DAILY@0800 HEALTH 06/16/22 02/19/24 History MAINTENANCE ezetimibe 10 mg tablet (Zetia) 10 mg PO DAILY DM 06/16/22 02/19/24 History empagliflozin 25 mg tablet 12.5 mg PO DAILY diabetes 11/24/22 02/19/24 History metoprolol tartrate 25 mg tablet 12.5 mg PO BID HEART/BLOOD PRESSURE 04/01/23 02/19/24 History tamsulosin 0.4 mg capsule 0.4 mg PO QHS prostate 05/14/23 02/19/24 History furosemide 40 mg tablet (Lasix) 40 mg PO DAILY fluid retention 06/03/23 02/19/24 History levothyroxine 200 mcg tablet 200 mcg PO DAILY thyroid 06/03/23 02/19/24 History (Euthyrox) albuterol sulfate 90 mcg/actuation 2 inh inhalation Q4H PRN sob 11/28/23 Unknown History aerosol inhaler losartan 100 mg tablet 100 mg PO DAILY blood pressure 11/28/23 02/19/24 History insulin aspar prt-insulin aspart 32 unit subcut QHS diabetes 02/11/24 02/19/24 History 100 unit/mL (70-30) subcutaneous soln (Novolog Mix 70-30 U-100 Insuln) insulin aspar prt-insulin aspart 40 unit subcut 0800 diabetes 02/11/24 02/19/24 History 100 unit/mL (70-30) subcutaneous soln (Novolog Mix 70-30 U-100 Insuln) budesonide 160 mcg-glycopyr 9 2 inh inhalation BID breathing 02/20/24 02/19/24 History mcg-formot 4.8 mcg/actuation HFA inhaler (Breztri Aerosphere) doxycycline hyclate 100 mg capsule 100 mg PO BID #14 caps 02/23/24 Unknown Rx guaifenesin 1,200 mg tablet, 1,200 mg PO BID #20 tabs 02/23/24 Unknown Rx extended release 12 hr (Mucinex) prednisone 20 mg tablet 40 mg (2 x 20 mg) PO BREAKFAST #10 02/23/24 Unknown Rx tabs rivaroxaban 15 mg tablet (Xarelto) 15 mg PO DINNER #0 tabs 02/23/24 Unknown Rx azithromycin 250 mg tablet 250 mg PO DAILY #4 TABLETS 03/17/24 Unknown Rx prednisone 20 mg tablet 60 mg (3 x 20 mg) PO DAILY #12 03/17/24 Unknown Rx TABLETS Allergy/AdvReac Type Severity Reaction Status Date / Time atorvastatin (From Lipitor) AdvReac Severe mylagia Verified 03/17/24 17:08 lanolin AdvReac Severe Rash Verified 03/17/24 17:08 Family History Sister CAD (coronary artery disease) Diabetes Brother CAD (coronary artery disease) Father Asthma Mother Cancer lung Surgical History Hx of cardiac catheterization (~01/19/17) S/P coronary artery stent placement (~04/05/18) History of coronary artery bypass surgery (~01/21/17) Social History household members: spouse Smoking Status: Former smoker how long ago did patient quit smokin alcohol intake: never substance use type: does not use caffeine: Yes Type: coffee Number of servings: 3 what type of physical activity do you participate in: none seatbelt use: always do you feel safe at home: Yes ROS ROS ED Constitutional Constitutional ED: Denies chills or weight loss Eyes Eyes: Denies change in vision or diplopia ENT ENT ED: Denies ear pain, rhinorrhea or sore throat Cardiovascular Cardiovascular: Denies chest pain, orthopnea, palpitations or racing heartbeat Respiratory/Chest Respiratory/Chest: Reports cough; Denies dyspnea or orthopnea Gastrointestinal Gastrointestinal: Denies abdominal pain, diarrhea, nausea or vomiting Genitourinary Genitourinary ED: Denies dysuria, hematuria or urinary frequency Musculoskeletal Musculoskeletal: Denies arthralgias or myalgias Integumentary Denies abscess or rash Neurologic Neurologic: Reports headache(s) and weakness Psychiatric Psychiatric: Denies anxiety, depression, suicidal ideation or suicidal thoughts Endocrine Endocrinology: Denies polydipsia, polyphagia or polyuria Allergic/Immunologic Allergic/Immunologic ED: Denies mouth swelling, tongue swelling or urticaria EXAM Physical Exam Const Vital Signs: 03/28/24 06:43 03/28/24 06:43 03/28/24 06:43 Temperature 97.9 F Temperature Source Temporal Pulse Rate 76 62 Respiratory Rate 18 19 H Blood Pressure 131/70 H 131/70 H Blood Pressure Mean 90 90 Pulse Ox 92 87 95 Oxygen Delivery Method Room Air Room Air Nasal Cannula Oxygen Flow Rate (L/min) 5 03/28/24 07:15 Temperature Temperature Source Pulse Rate Respiratory Rate Blood Pressure Blood Pressure Mean Pulse Ox 95 Oxygen Delivery Method Oxygen Flow Rate (L/min) 5 Positive well nourished and well developed General Appearance ED: well developed HEENT Reports normocephalic, head/scalp atraumatic and moist mucous membranes Eyes PERRL and EOMs intact bilaterally Neck no lymphadenopathy, supple and no JVD Resp normal respiratory effort and clear to auscultation bilaterally Cardio regular rate, regular rhythm and no murmurs GI normal to inspection, nondistended, normoactive bowel sounds and non-tender Palpation: soft Back/Spine no CVA tenderness and normal ROM Extremity normal to inspection General Extremety ED: Negative for edema General Extremity: Negative for edema Neuro oriented x3 Sensorium / Orientation: alert Skin no rashes or lesions noted and no wounds MDM MDM MDM Narrative Medical decision making narrative: Prehospital stroke team was called I met the patient in the ambulance bay and performed a quick neurologic assessment. He is not a thrombolytic candidate but could possibly be a endovascular candidate. He was taken from the ambulance bay directly to the CT scanner where a noncontrasted head CT was reviewed by myself. I do not see an obvious hemorrhage. A CTA of the head and neck was obtained and upon my review demonstrates an acute M1 occlusion. I spoke with [facility] neurology who recommends transfer there for endovascular treatment. While nursing was trying to obtain transportation I spoke with the . She is in agreement with transfer but would not like him to have open heart surgery again if needed. I did speak with the radiologist after their review who confirms the above findings. He was given rectal aspirin. Because his blood pressure was 131/70 he was laid flat and given a small fluid bolus followed by maintenance fluids. We are going to continue to monitor his airway. My independent interpretation of the single view chest x-ray is chronic changes no acute process noted when compared to prior. History & Record Review Discussion w/independent historian: EMS personnel, Patient and Significant other Additional record(s) reviewed:: Prior ED visit and Prior labs Lab Data Attestation: I reviewed the patient's lab results. Labs: Laboratory Results - last 24 hr 03/28/24 06:44 WBC 13.7 H RBC 5.68 Hgb 16.2 Hct 50.4 MCV 88.7 MCH 28.5 MCHC 32.1 RDW Std Deviation 55.5 H RDW Coeff of [place] 17.6 H Plt Count 286 MPV 11.3 Immature Gran % (Auto) 2.800 H Neut % (Auto) 69.3 Lymph % (Auto) 17.3 L [place] % (Auto) 8.0 Eos % (Auto) 1.7 Baso % (Auto) 0.9 Absolute Neuts (auto) 9.5 H Absolute Lymphs (auto) 2.37 Nucleated RBC % 0 PT 13.3 INR 1.0 APTT 26.3 Sodium 139 Potassium 3.5 Chloride 102 Carbon Dioxide 33.0 H Anion Gap 4 L BUN 31 H Creatinine 1.35 H Estim Creat Clear Calc 55.08 Est GFR (MDRD) Af Amer 67 Est GFR (MDRD) Non-Af 55 L BUN/Creatinine Ratio 23.0 H Glucose 98 Calcium 9.1 Troponin I High Sens 147 H* Radiography Diagnostic Testing: Clinical Impression(s) from Imaging Studies Brain CT 03/28/24 06:43 IMPRESSION: 1. No acute intracranial abnormalities. 2. Age-related changes. Electronically Signed: Russ Silva MD at 6:58 EST Reading Location ID and State: [facility] / [employer] , Service support , ADDENDUM: 03/28/2409 IMPRESSION: 1. No acute intracranial abnormalities. 2. Age-related changes. N.B. : The above Results were Read Back by Russ Silva MD to Forrest Guzman DO, and understanding confirmed on 03/28/2024 07:02:31 (ET). Electronically Signed: Russ Silva MD at 6:58 EST [facility] [employer] , Service support , Head/Neck CTA 03/28/24 06:43 IMPRESSION: 1. There is a large vessel occlusion involving the distal portion of the M1 segment of the right middle cerebral artery. Significantly diminished flow within the right MCA territory. 2. No other acute arterial abnormalities identified in the head/neck. 3. Some patchy airspace disease in the lung apices with small left pleural effusion. Findings may indicate pneumonia. Electronically Signed: Russ Silva MD at 7:11 EST Reading Location ID and State: [employer] / [employer] , Service support , ADDENDUM: 03/28/24 0721 IMPRESSION: 1. There is a large vessel occlusion involving the distal portion of the M1 segment of the right middle cerebral artery. Significantly diminished flow within the right MCA territory. 2. No other acute arterial abnormalities identified in the head/neck. 3. Some patchy airspace disease in the lung apices with small left pleural effusion. Findings may indicate pneumonia. N.B. : The above Results were Read Back by Russ Silva MD to Forrest Guzman DO, and understanding confirmed on 03/28/2024 07:14:36 (ET). Electronically Signed: Russ Silva MD at 7:11 EST , EKG Initial EKG: Attestation: I personally reviewed and interpreted this EKG as follows: Comments: AV dual paced rhythm with underlying atrial flutter ventricular rate of 65 bpm Management Discussion w/another healthcare provider: Maternity Nurse ([facility]) and Radiologist Critical Care Time Critical Care Time: Yes Critical care time (excluding procedures): 30-74 minutes (35 min), Including time spent:, Discussing w/Patient &/or Family/Sexer, Discussing w/Consultants, Arranging Admission or Transfer and Performing Direct Patient Care at Bedside Discharge Plan Triage Chief Complaint: Stroke Alert ED Provider: Forrest Guzman Dx/Rx/DC Orders Clinical Impression: Acute cerebrovascular accident (CVA) due to embolism of right middle cerebral artery, Atrial flutter Prescriptions: No Action nitroglycerin 0.4 mg tablet, sublingual 0.4 mg SUBLINGUAL Q5-15M PRN (Reason: chest pain) Qty: 90 6RF Rx Instructions: until response; do not exceed 3 doses per episode metoprolol tartrate 25 mg tablet 12.5 mg PO BID Rx Instructions: Hold for heart less than 50 or systolic blood pressure less than 100 mmHg. aspirin 81 MG tablet,chewable 81 mg PO DAILY@0800 ezetimibe [Zetia] 10 mg tablet 10 mg PO DAILY empagliflozin 25 mg tablet 12.5 mg PO DAILY tamsulosin 0.4 mg Capsule 0.4 mg PO QHS levothyroxine [Euthyrox] 200 mcg tablet 200 mcg PO DAILY furosemide [Lasix] 40 mg tablet 40 mg PO DAILY Rx Instructions: Take furosemide 80 mg at 10 AM if increased leg swelling or weight gain 5 pounds in 1 week. losartan 100 mg tablet 100 mg PO DAILY albuterol sulfate 90 mcg/actuation HFA aerosol inhaler 2 inh inhalation Q4H PRN (Reason: sob) insulin asp prt-insulin aspart [Novolog Mix 70-30 U-100 Insuln] 100 unit/mL (70-30) solution 32 unit subcut QHS insulin asp prt-insulin aspart [Novolog Mix 70-30 U-100 Insuln] 100 unit/mL (70-30) solution 40 unit subcut 0800 Breztri Aerosphere 160-9-4.8 mcg/actuation HFA aerosol inhaler 2 inh inhalation BID prednisone 20 mg Tablet 40 mg PO BREAKFAST Qty: 10 0RF Xarelto 15 mg Tablet 15 mg PO DINNER Qty: 0 0RF guaifenesin [Mucinex] 1,200 mg tablet extended release 12hr 1,200 mg PO BID Qty: 20 0RF doxycycline hyclate 100 mg capsule 100 mg PO BID Qty: 14 0RF azithromycin 250 mg tablet 250 mg PO DAILY Qty: 4 0RF prednisone 20 mg tablet 60 mg PO DAILY Qty: 12 0RF [facility] [[facility] Provider] - Print Language: Ukrainian Disposition Disposition: Acute Care Hospital Discharge Location: [facility] NIHSS NIHSS 1a. Level of Consciousness: Alert; keenly responsive 1b. LOC Questions: Answers BOTH questions correctly. 1c. LOC Commands: Performs both tasks correctly. 2. Best Gaze: Normal 3. Visual: No visual loss 4. Facial Palsy: Complete paralysis of one or both sides 5a. Left Arm: No movement 5b. Right Arm: No drift; arm holds 90 (or 45) degrees for full 10 seconds 6a. Left Leg: No movement 6b. Right Leg: Some effort against gravity; 7. Limb Ataxia: Absent 8. Sensory: [id number] sensory loss; 9. Best Language: No aphasia; normal 10. Dysarthria: [id number] dysarthria; 11. Extinction and Inattention: Visual, tactile, auditory, spatial, or personal inattention Total: 16 Stroke Questions Stroke Team Activated: Yes a.Reviewed Inclusion/Exclusion criteria: Yes Was Patient considered for Endovascular Intervention?: Yes IV Thrombolytic Administered: No No contraindications from thrombolytic administration: No Risks, Benefits, Alternatives Discussed: Yes
[2024-03-28 07:13] VITALS: BP 132/71; PULSE 72; RESP 18; O2SAT 98
[2024-03-28 07:14] LABS: Partial Thromboplast Time 26.3 Seconds (24.1-36.2); Prothrombin Time (Protime)PT. 13.3 SECONDS (11.7-14.9)
[2024-03-28 07:15] VITALS: O2SAT 95
--- NOTE | 2024-03-28 07:15 | RAD_ITS ---
EXAM: XR CHEST, 1 VIEW CLINICAL INDICATION: Neuro deficit, acute, stroke suspected TECHNIQUE: Frontal view of the chest. COMPARISON: Single view chest 03/17/2024 FINDINGS: LUNGS AND PLEURAL SPACES: Bilateral interstitial and alveolar opacities and small pleural effusions. No pneumothorax. HEART: Mild enlargement of the cardiac silhouette. MEDIASTINUM: Surgical changes of the mediastinum. BONES/JOINTS: Unremarkable. No acute fracture. SOFT TISSUES: Unremarkable. TUBES, LINES AND DEVICES: Left chest pacer. RAD/Chest 1 View IMPRESSION: Bilateral interstitial and alveolar opacities and small pleural effusions. Findings may indicate edema and/or infection. Electronically Signed: Russ Silva MD at 7:58 EST ,
[2024-03-28] MEDS: 0.9% Normal Saline (500mL Bag) 500 ML 999 ML IV (07:24)
[2024-03-28] MEDS: 0.9% Normal Saline (1000mL) 1,000 ML 200 ML IV (07:24)
[2024-03-28] MEDS: Aspirin 300 MG Suppository RC (07:28)
[2024-03-28 07:30] VITALS: BP 129/58; PULSE 61; RESP 16; O2SAT 98
--- NOTE | 2024-03-28 08:01 | ED.RN ---
given work note. She is not able to drive to [facility] and will be calling her.
[2024-03-28 08:07] VITALS: BP 142/78; PULSE 77; RESP 20; TEMP 36.8; O2SAT 95
[2024-03-28 08:18] LABS: Bedside Glucose 108 mg/dL (74-106)
== END 2024-03-28 07:58 | disposition short-term general hospital (02) ==
PROVIDERS: Emergency Provider Emergency Medicine; Visit Provider Emergency Medicine
DX: I63.311 Cerebral infarction due to thrombosis of right middle cerebral artery (principal); I50.32 Chronic diastolic (congestive) heart failure; I13.0 Hypertensive heart and chronic kidney disease with heart failure and stage 1 through stage 4 chronic kidney disease, or unspecified chronic kidney disease; I48.92 Unspecified atrial flutter; E11.42 Type 2 diabetes mellitus with diabetic polyneuropathy; E11.22 Type 2 diabetes mellitus with diabetic chronic kidney disease; N18.31 Chronic kidney disease, stage 3a; I25.10 Atherosclerotic heart disease of native coronary artery without angina pectoris; E78.5 Hyperlipidemia, unspecified; Z87.891 Personal history of nicotine dependence; Z95.0 Presence of cardiac pacemaker; R47.81 Slurred speech
CPT/HCPCS: 70450; 70496; 70498; 71045; 80048; 82962; 84484; 85025; 85610; 85730; 93005; 99285; Q9967; A4216